=== PATIENT | female | born 1955 | race Caucasian/White ===

== ENCOUNTER 2019-12-29 09:26 | Outpatient (REF) | payer MEDICAID, SELFPAY | END 2019-12-29 09:27 | disposition home or self-care (01) | LOC: HO.LAB 09:26 | PROVIDERS: Visit Provider Internal Medicine | DX: Z20.828 Contact with and (suspected) exposure to other viral communicable diseases (principal) | CPT/HCPCS: 87635 ==

== ENCOUNTER 2020-06-03 12:49 | Emergency (ER) | payer MEDICAID, SELFPAY ==
--- NOTE | ~2020-06-03 | XR_ITS ---
EXAMINATION: XR CHEST CLINICAL INFORMATION: Left hand numbness. COMPARISON: Chest 10/05/2018 TECHNIQUE: 2 views of the chest were obtained. FINDINGS: No significant abnormality is noted involving the heart, lungs, mediastinum, bony thorax or soft tissues. XR/XR chest 2V IMPRESSION: Unremarkable chest exam.
[2020-06-03 14:18] VITALS: BP 137/84; PULSE 64; RESP 19; TEMP 36.6; O2SAT 100; BMI 29.2
[2020-06-03 14:24] VITALS: PULSE 64
--- NOTE | 2020-06-03 14:35 | ECG_ITS ---
Test Reason : CP Blood Pressure : / mmHG Vent. Rate : 068 BPM Atrial Rate : 068 BPM P-R Int : 136 ms QRS Dur : 070 ms QT Int : 398 ms P-R-T Axes : 042 037 039 degrees QTc Int : 423 ms Normal sinus rhythm Normal ECG When compared to the previous EKG of No significant changes seen Referred By: Litzy Portillo Electronically Signed By:Mati Vigil
[2020-06-03 15:02] LABS: MANUAL DIFF FLAG NO
[2020-06-03 15:03] LABS: Basophils Percent Auto 0.3 % (0-2); Eosinophils Absolute Auto 0.2 X10*3/uL (0.0-0.4); Eosinophils Percent Auto 3.1 % (0-4); Hematocrit 42.1 % (37-47); Hemoglobin 13.5 g/dl (12.0-16.0); Imm Gran Abs Auto 0.02 X10*3/uL (0.00-0.03); Imm Gran Pct Auto 0.3 % (0.0-0.4); Lymphocytes Absolute Auto 1.4 X10*3/uL (1.2-4.9); Mean Corpuscular HGB Conc 32.1 g/dl (31.0-35.0); Mean Corpuscular Hemoglobin 31.8 pg (27.0-33.0); Mean Corpuscular Volume 99.1 fL (80-98); Monocytes Absolute Auto 0.5 X10*3/uL (0.1-1.2); Monocytes Percent Auto 8.2 % (2-11); Neutrophils Absolute Auto 3.7 X10*3/uL (2.0-8.3); Neutrophils Percent Auto 64.1 % (45-73); Platelet Count 263 X10*3/uL (160-400); Red Blood Count 4.25 X10*6/uL (4.20-5.50); Red Cell Distribution Width 11.5 % (11.0-16.0); White Blood Count 5.8 X10*3/uL (4.8-10.8)
[2020-06-03 15:09] LABS: INTERNATIONAL NORM RATIO 0.9 (0.9-1.1); Prothrombin Time 10.3 SEC (10.8-13.0)
[2020-06-03 15:12] LABS: Partial Thromboplastin Time 34.9 SEC (24.1-38.0)
--- NOTE | 2020-06-03 15:29 | ED.CHESTPAIN ---
HPI - Chest Pain General Chief Complaint: Chest Pain Stated Complaint: chest pain Time Seen by Provider: 06/03/20 14:34 Source: patient Mode of arrival: ambulatory Limitations: language barrier (Moroccan-speaking) History of Present Illness HPI narrative: 65-year-old female who is Moroccan-speaking with a past medical history of migraine headaches, hyperlipidemia and diabetes type 2 presenting to the ED with complaints of chest pain for the past 3 days with associated left hand numbness. She denies anything making the chest pain better or worse. Reports she has also been having her migraine headaches at the frontal aspect of her head which is similar when compared to prior headaches. Denies any fevers, dizziness, lightheadedness, changes in vision, nausea/vomiting, shortness of breath, dyspnea on exertion, orthopnea, palpitations, abdominal pain, back pain, lower extremity swelling or calf tenderness or any other symptoms complaints or concerns at this time. MD complaint: chest pain Onset (ago): day(s) (Three days) Timing of current episode: constant and still present Prior episodes: Yes Onset: other (Patient cannot recall) Pain location: left chest Pain radiation: left shoulder Severity: moderate Quality: other (Throbbing sensation) Relieving factors: nothing Exacerbating factors: nothing Associated symptoms: other (Left hand numbness) Treatment prior to arrival: none Risk Factors Coronary artery disease risk factors: diabetes and hyperlipidemia Thoracic aortic dissection risk factors: none Related Data On Oral Contraceptives: No Previous Rx's Medication Instructions Recorded cyclobenzaprine 10 mg PO Q8H #10 tab 06/03/20 naproxen 500 mg PO BID PRN #10 tab 06/03/20 Allergies Allergy/AdvReac Type Severity Reaction Status Date / Time No Known Allergies Allergy Unverified 12/09/19 18:27 [No Known Allergies*] Review of Systems Review of Systems: Constitutional : No Weight loss, No Fever, No Chills, No Night Sweats, No Fatigue, No Malaise ENT/Mouth : No Hearing loss, No Ear Pain, No Nasal Congestion, No Sinus Pain, No Hoarseness, No sore throat, No Rhinorrhea, No Swallowing Difficulty Eyes: No Eye Pain, No Swelling, No Redness, No Foreign Body, No Discharge, No Vision Changes Cardiovascular : + Chest pain, No SOB, no Dyspnea on Exertion, No Orthopnea, No Edema, No extremity swelling, No Palpitations Respiratory : No Cough, No Sputum, No Wheezing, No Dyspnea Gastrointestinal : No Nausea, No Vomiting, No Diarrhea, No abdominal Pain, No Hematochezia, No Melena Genitourinary : No irregular bleeding, No Dysuria, No Urinary Frequency, No Hematuria, No Urinary Incontinence, No Urgency, No Flank Pain, No Urinary Flow Changes, No Hesitancy Musculoskeletal : + left shoulder joint pain, No Myalgias, No Joint Swelling Skin : No Skin Lesions, No rash Neuro : + Numbness to left hand, +migraine headaches, No Weakness, No Loss of Consciousness, No Dizziness, No Headache Psych : No Anxiety/Panic, No Depression, No SI/HI/AH/VH Heme/Lymph: No Bruising, No Bleeding,No Lymphadenopathy Endocrine : No Polyuria, No Polydipsia, No Temperature Intolerance Yes all other systems are reviewed and are negative [facility] Past Medical History Attestation statement: The following information was validated with the patient. Medical History Diabetes type 2, controlled High cholesterol Surgical History H/O section H/O: hysterectomy Social History Social History Advance Directives: No Advance Directives Information Provided: Yes Physical Exam Vital Signs: Vital Signs: Last Vital Signs Temp 98 F 06/03/20 14:18 Pulse 64 06/03/20 14:18 Resp 19 06/03/20 14:18 BP 137/84 06/03/20 14:18 Pulse Ox 100 06/03/20 14:18 Body Mass Index 29.2 Vital signs have been reviewed as normal and appeared to be correct. Blood pressure normal. Heart rate normal. Respiration rate normal. Temperature normal. Oxygen saturation normal. Appearance: Alert. Oriented X3. No acute distress. Head: Normal external exam. Normocephalic. Atraumatic. Able to rotate head bilaterally. Eyes: PERRLA. EOMI. No nystagmus noted. Conjunctiva and sclera normal. Eyelids normal. Corneal reflex normal. ENT: EAC normal. TM's Normal. Hearing normal. Pharynx normal. Uvula midline. tongue midline. Moist mucous membranes. No trismus noted. No drooling noted. No muffled voice noted. No nystagmus noted. Neck: Normal inspection. Neck supple. FROM. No adenopathy. Trachea midline. Thyroid Normal. No meningeal signs. No neck mass noted. CVS: Normal heart rate and rhythm. Heart sound normal. No murmurs noted. Pulses normal throughout. Respiratory: No respiratory distress. Painless inspiration. Breath sounds normal. No wheezes/rales/rhonchi noted. Chest nontender. No accessory muscle usage noted or decreased air movement noted. Abdomen: Soft and nontender. Bowel sounds normal in all 4 quadrants. No distention noted. No organomegaly noted. No visible injury noted. Back: No CVA tenderness. Full range of motion noted. Skin: Skin warm and dry. Normal skin color. Normal skin turgor. No rashes/lesions/lacerations noted. Extremities: No lower extremity edema. Extremities exhibit normal range of motion. Extremities nontender. Able to shrug shoulders bilaterally and keep up against resistance. Neuro: Oriented X 3. No motor deficit. No sensory deficit. Reflexes normal. Moving all extremities. No focal motor deficits. Cranial nerves II-XI intact bilaterally. Facial strength normal. Normal cognition. Speech normal. Gait normal. Strength 5/5 throughout. No pronator drift. No tremor noted. No fasciculations noted. No rigidity noted. Muscle tone normal throughout. Course Course Course Narrative: 14:35pm - 65-year-old female who is Moroccan-speaking with a past medical history of migraine headaches, hyperlipidemia and diabetes type 2 presenting to the ED with complaints of chest pain for the past 3 days with associated left hand numbness. - on exam patient is alert oriented x3. Not in any acute distress. Vital signs are stable within normal limits. Lungs clear to auscultation. CV RRR. No reproducible chest tenderness. No rashes/lesion/induration/fluctuance or signs of infection on the chest wall. Abdomen is soft and nontender. No exam is within normal limits no focal neuro deficits noted. - concern for ACS vs PNA vs costal chondritis/muscular strain - Plan: Labs, CXR, EKG then re-evaluate. Reevaluation(s) Reevaluation #1: - all labs within normal limits including D-dimer and troponin. Patient with atypical chest pain. Does not need serial troponins as pain has been consistent for the past 3 days. Will DC home with instructions return if any new or worsening symptoms to follow up with primary care provider. Patient understands agrees with this plan. Time: 17:19 MDM - Chest Pain Medical Records Data Attestation: I reviewed the patient's medical records. Lab Data Attestation: I reviewed the patient's lab results. Result diagrams: 06/03/20 14:45 06/03/20 14:43 Labs: Lab Results 06/03/20 06/03/20 06/03/20 Range/Units 14:43 14:43 14:43 WBC (4.8-10.8) X10*3/uL RBC (4.20-5.50) X10*6/uL Hgb (12.0-16.0) g/dl Hct (37-47) % MCV (80-98) fL MCH (27.0-33.0) pg MCHC (31.0-35.0) g/dl RDW (11.0-16.0) % Plt Count (160-400) X10*3/uL MPV (9.4-12.3) fL Immature Gran % (Auto) (0.0-0.4) % Neut % (Auto) (45-73) % Lymph % (Auto) (20-40) % [place] % (Auto) (2-11) % Eos % (Auto) (0-4) % Baso % (Auto) (0-2) % Lymph # (Auto) (1.2-4.9) X10*3/uL [place] # (Auto) (0.1-1.2) X10*3/uL Eos # (Auto) (0.0-0.4) X10*3/uL Baso # (Auto) (0.0-0.2) X10*3/uL Abs Immat Gran (auto) (0.00-0.03) X10*3/uL Absolute Neuts (auto) (2.0-8.3) X10*3/uL Absolute Nucleated RBC (0.0-0.012) X10*3/uL Nucleated RBC % (auto) (0.0-0.2) /100WBC PT 10.3 L (10.8-13.0) SEC INR 0.9 (0.9-1.1) APTT 34.9 (24.1-38.0) SEC D-Dimer < 200 NG/ML Sodium (135-145) mmol/L Potassium (3.3-5.1) mmol/L Chloride (96-108) mmol/L Carbon Dioxide (22-29) mmol/L Anion Gap (12-20) BUN (9-16) mg/dL Creatinine (0.5-1.4) mg/dL Estim Creat Clear Calc Estimated GFR Random Glucose (60-115) mg/dL Calcium (8.4-10.2) mg/dL Magnesium (1.6-2.6) mg/dL Total Bilirubin (0.0-1.0) mg/dL Direct Bilirubin (0.0-0.5) mg/dL AST (5-31) U/L ALT (0-31) U/L Alkaline Phosphatase (39-117) U/L Total Creatine Kinase (26-140) U/L Troponin I High Sens < 3.5 (<3.5-17.0) ng/L B-Natriuretic Peptide 79 (<100) pg/mL Total Protein (6.5-8.0) g/dL Albumin (3.5-5.0) g/dL Lipase (8-78) U/L Coronavirus (PCR) NEGATIVE (Negative) Influenza Type A (PCR) NEGATIVE (Negative) Influenza Type B (PCR) NEGATIVE (Negative) RSV RNA Qual (PCR) NEGATIVE (Negative) 06/03/20 06/03/20 Range/Units 14:43 14:45 WBC 5.8 (4.8-10.8) X10*3/uL RBC 4.25 (4.20-5.50) X10*6/uL Hgb 13.5 (12.0-16.0) g/dl Hct 42.1 (37-47) % MCV 99.1 H (80-98) fL MCH 31.8 (27.0-33.0) pg MCHC 32.1 (31.0-35.0) g/dl RDW 11.5 (11.0-16.0) % Plt Count 263 (160-400) X10*3/uL MPV 10.0 (9.4-12.3) fL Immature Gran % (Auto) 0.3 (0.0-0.4) % Neut % (Auto) 64.1 (45-73) % Lymph % (Auto) 24.0 (20-40) % [place] % (Auto) 8.2 (2-11) % Eos % (Auto) 3.1 (0-4) % Baso % (Auto) 0.3 (0-2) % Lymph # (Auto) 1.4 (1.2-4.9) X10*3/uL [place] # (Auto) 0.5 (0.1-1.2) X10*3/uL Eos # (Auto) 0.2 (0.0-0.4) X10*3/uL Baso # (Auto) 0.0 (0.0-0.2) X10*3/uL Abs Immat Gran (auto) 0.02 (0.00-0.03) X10*3/uL Absolute Neuts (auto) 3.7 (2.0-8.3) X10*3/uL Absolute Nucleated RBC 0.000 (0.0-0.012) X10*3/uL Nucleated RBC % (auto) 0.0 (0.0-0.2) /100WBC PT (10.8-13.0) SEC INR (0.9-1.1) APTT (24.1-38.0) SEC D-Dimer NG/ML Sodium 141 (135-145) mmol/L Potassium 5.0 (3.3-5.1) mmol/L Chloride 106 (96-108) mmol/L Carbon Dioxide 28 (22-29) mmol/L Anion Gap 12 (12-20) BUN 18 H (9-16) mg/dL Creatinine 0.83 (0.5-1.4) mg/dL Estim Creat Clear Calc 54.9 Estimated GFR > 60 Random Glucose 86 (60-115) mg/dL Calcium 9.0 (8.4-10.2) mg/dL Magnesium 2.3 (1.6-2.6) mg/dL Total Bilirubin 0.5 (0.0-1.0) mg/dL Direct Bilirubin < 0.2 (0.0-0.5) mg/dL AST 22 (5-31) U/L ALT 12 (0-31) U/L Alkaline Phosphatase 94 (39-117) U/L Total Creatine Kinase 158 H (26-140) U/L Troponin I High Sens (<3.5-17.0) ng/L B-Natriuretic Peptide (<100) pg/mL Total Protein 6.7 (6.5-8.0) g/dL Albumin 4.0 (3.5-5.0) g/dL Lipase 42 (8-78) U/L Coronavirus (PCR) (Negative) Influenza Type A (PCR) (Negative) Influenza Type B (PCR) (Negative) RSV RNA Qual (PCR) (Negative) Imaging Data Chest x-ray: Attestation: I personally reviewed and interpreted this imaging study as follows: Radiologist's impression: FINDINGS: No significant abnormality is noted involving the heart, lungs, mediastinum, bony thorax or soft tissues. XR/XR chest 2V IMPRESSION: Unremarkable chest exam. ECG Data ECG #1: Attestation: I personally reviewed and interpreted this ECG as follows: ECG interpretation date: 06/03/20 ECG interpretation time: 13:19 Interpretation: Normal sinus rhythm and tachy rate of 60 with normal SD interval normal QRS duration normal QT/QTC interval. No acute ischemic changes noted. Discharge Plan Discharge Clinical Impression: Atypical chest pain Patient Disposition: Home, Self-Care Instructions: Chest Pain (ED) Prescriptions: New cyclobenzaprine 10 mg tablet 10 mg PO Q8H Qty: 10 RF: 0 naproxen 500 mg tablet 500 mg PO BID PRN (Reason: pain) Qty: 10 RF: 0 Referrals: Diamond Ponce MD [Primary Care Provider] - 2 days Print Language: Moroccan
[2020-06-03 15:35] LABS: B Type Natriuretic Peptide 79 pg/mL (<100); Troponin-I High Sensitivity < 3.5 ng/L (<3.5-17.0)
[2020-06-03 16:24] LABS: D Dimer < 200 NG/ML
[2020-06-03 16:26] LABS: Alanine Aminotransferase 12 U/L (0-31); Alkaline Phosphatase 94 U/L (39-117); Anion Gap 12 (12-20); Aspartate Amino Transferase 22 U/L (5-31); Bilirubin Direct < 0.2 mg/dL (0.0-0.5); Bilirubin Total 0.5 mg/dL (0.0-1.0); Blood Urea Nitrogen 18 mg/dL (9-16); Carbon Dioxide 28 mmol/L (22-29); Chloride 106 mmol/L (96-108); Creatinine Clr Calc Pharmacy 54.9; Estimated Glomerular Filt Rate > 60; Glucose Random 86 mg/dL (60-115); Lipase 42 U/L (8-78); Magnesium 2.3 mg/dL (1.6-2.6); Sodium 141 mmol/L (135-145); Total Protein 6.7 g/dL (6.5-8.0)
[2020-06-03 16:43] LABS: Influenza A PCR NEGATIVE (Negative); Influenza B PCR NEGATIVE (Negative); Resp Syncy Virus RNA Qual PCR NEGATIVE (Negative); SARS COV2 PCR INHOUSE NEGATIVE (Negative)
== END 2020-06-03 18:04 | disposition home or self-care (01) ==
PROVIDERS: Physician Assistant Medical; Emergency Provider Emergency Medicine; PCP Internal Medicine
DX: R07.89 Other chest pain (principal); M25.512 Pain in left shoulder; Z20.822 Contact with and (suspected) exposure to COVID-19; Z79.899 Other long term (current) drug therapy
CPT/HCPCS: 0241U; 36415; 71046; 80048; 80076; 82550; 83690; 83735; 83880; 84484; 85025; 85379; 85610; 85730; 93005; 99284

== ENCOUNTER 2020-06-12 13:11 | Outpatient (REF) | payer MEDICAID, SELFPAY ==
--- NOTE | ~2020-06-12 | MM_ITS ---
EXAMINATION: MM SCREENING DIGITAL BREAST TOMOSYNTHESIS, BILATERAL CLINICAL INFORMATION: Screening. Asymptomatic. The lifetime risk of breast cancer based on the Tyrer-Cuzick Model is 3%. COMPARISON: Mammography: 12/15/2018, 12/11/2017, 06/09/2017, 11/18/2016, 11/07/2016 TECHNIQUE: Digital breast tomosynthesis is performed in both the craniocaudal and mediolateral oblique views along with computer-aided detection (CAD). Synthesized 2D images are generated from the tomosynthesis. FINDINGS: There are scattered areas of fibroglandular density (ACR BI-RADS breast composition Category b). Parenchymal pattern is similar to prior exams. Small smooth nodule mid 9:00 left breast is stable prior studies. Neither breast shows developing density or interval mass or architectural abnormality or abnormal calcifications. The skin contours are smooth. MM/MM tomosynthesis screening BI IMPRESSION: No mammographic evidence of malignancy. ASSESSMENT: BI-RADS 2: Benign RECOMMENDATION: Routine annual mammography screening. This patient's information was entered into a reminder system with a target due date for their next mammogram.
== END 2020-06-12 13:12 | disposition home or self-care (01) ==
LOC: HO.MAMMO 13:11
PROVIDERS: PCP Internal Medicine; Visit Provider Internal Medicine
DX: Z12.31 Encounter for screening mammogram for malignant neoplasm of breast (principal)
CPT/HCPCS: 77063; 77067

== ENCOUNTER → 2020-07-13 13:33 | Outpatient (REF) | payer MEDICAID, SELFPAY ==
--- NOTE | 2020-07-13 13:43 | ECG_ITS ---
Test Reason : CP Blood Pressure : / mmHG Vent. Rate : 081 BPM Atrial Rate : 081 BPM P-R Int : 140 ms QRS Dur : 078 ms QT Int : 380 ms P-R-T Axes : 038 045 031 degrees QTc Int : 441 ms Normal sinus rhythm Normal ECG When compared to the previous EKG of No significant changes seen Referred By: Poonam Cao Electronically Signed By:Mati Vigil
== END ==
LOC: HO.CARD 13:33
PROVIDERS: PCP Internal Medicine; Visit Provider Family Medicine
DX: R07.89 Other chest pain (principal)
CPT/HCPCS: 93005

== ENCOUNTER 2020-07-31 13:27 | Outpatient (REF) | payer MEDICAID, SELFPAY ==
--- NOTE | ~2020-07-31 | XR_ITS ---
EXAMINATION: XR SHOULDER, LEFT CLINICAL INFORMATION: Pain left shoulder. COMPARISON: None TECHNIQUE: AP external rotation, Grashey, scapular Y, and axillary views of the left shoulder. FINDINGS: The bones and soft tissues are normal. No fracture. Minimal loss of glenohumeral joint space. The acromioclavicular alignment is anatomic with normal joint space. No abnormal soft tissue calcifications. XR/XR shoulder LT min 2V IMPRESSION: Minimal loss of glenohumeral joint space. Otherwise unremarkable left shoulder exam.
== END 2020-07-31 13:28 | disposition home or self-care (01) ==
LOC: HO.XRAY 13:27
PROVIDERS: PCP Internal Medicine; Visit Provider Emergency Medicine
DX: M25.512 Pain in left shoulder (principal)
CPT/HCPCS: 73030

== ENCOUNTER 2020-10-01 07:02 | Emergency (ER) | payer MEDICAID, SELFPAY ==
--- NOTE | ~2020-10-01 | XR_ITS ---
EXAMINATION: XR CHEST CLINICAL INFORMATION: Chest pain COMPARISON: X-ray 06/03/2020 TECHNIQUE: Frontal view of the chest was obtained. FINDINGS: Rotated positioning. Cardiomediastinal silhouette is stable allowing for difference in technique. Mild central vascular prominence. No overt pulmonary edema. No consolidation, effusion or pneumothorax. XR/XR chest 1V IMPRESSION: Mild central vascular prominence without overt pulmonary edema.
[2020-10-01 07:06] VITALS: BP 140/77; PULSE 75; RESP 18; TEMP 36.6; O2SAT 96; BMI 30.9
--- NOTE | 2020-10-01 07:07 | ECG_ITS ---
Test Reason : CP Blood Pressure : / mmHG Vent. Rate : 061 BPM Atrial Rate : 061 BPM P-R Int : 148 ms QRS Dur : 080 ms QT Int : 422 ms P-R-T Axes : 034 024 023 degrees QTc Int : 424 ms Normal sinus rhythm Nonspecific T wave abnormality Abnormal ECG No significant changes when compared with the previous EKG of 13 jul 2020 Referred By: Dedra Dawson Electronically Signed By:RELL RAE
[2020-10-01 07:19] LABS: MANUAL DIFF FLAG NO
[2020-10-01 07:28] LABS: Basophils Percent Auto 0.5 % (0-2); Eosinophils Absolute Auto 0.4 X10*3/uL (0.0-0.4); Eosinophils Percent Auto 7.5 % (0-4); Hematocrit 40.5 % (37-47); Hemoglobin 13.1 g/dl (12.0-16.0); Imm Gran Abs Auto 0.01 X10*3/uL (0.00-0.03); Imm Gran Pct Auto 0.2 % (0.0-0.4); Lymphocytes Absolute Auto 1.3 X10*3/uL (1.2-4.9); Mean Corpuscular HGB Conc 32.3 g/dl (31.0-35.0); Mean Corpuscular Hemoglobin 31.2 pg (27.0-33.0); Mean Corpuscular Volume 96.4 fL (80-98); Mean Platelet Volume 9.9 fL (9.4-12.3); Monocytes Absolute Auto 0.5 X10*3/uL (0.1-1.2); Monocytes Percent Auto 9.5 % (2-11); Neutrophils Absolute Auto 3.2 X10*3/uL (2.0-8.3); Neutrophils Percent Auto 58.3 % (45-73); Platelet Count 256 X10*3/uL (160-400); Red Cell Distribution Width 11.8 % (11.0-16.0); White Blood Count 5.5 X10*3/uL (4.8-10.8)
--- NOTE | 2020-10-01 07:29 | ED_ITS ---
HPI - Chest Pain General Chief Complaint: Chest Pain Stated Complaint: CHEST PAIN SINCE 5AM Time Seen by Provider: 10/01/20 07:07 Source: patient, EMS and special education assistant Mode of arrival: EMS Limitations: no limitations History of Present Illness HPI narrative: 65-year-old female speaking only came in by ambulance evaluation for chest pain. Chest pain started at 04:00 with the patient from sleep patient describes the pain as mid sternal chest pain, pain was described as muscle spasm, pain is intermittent comes and goes, moderate 5/10, also complained of bilateral shoulders pain, pain is associated with headache, no relieving or aggravating factors. Patient had similar pain in the past and was told some muscle spasm. Patient declined any shortness of breath. Patient was given sublingual nitro by EMS stated that her headache is worsening after that, patient reportedly has a partial relief of her chest pain. Related Data Previous Rx's Medication Instructions Recorded cyclobenzaprine 10 mg PO Q8H #10 tab 06/03/20 naproxen 500 mg PO BID PRN #10 tab 06/03/20 Allergies Allergy/AdvReac Type Severity Reaction Status Date / Time No Known Allergies Allergy Unverified 12/09/19 18:27 [No Known Allergies*] Review of Systems Review of Systems: All other systems are reviewed and are negative Constitutional: Reports as per HPI and Reports no additional constitutional complaints Eyes: Reports as per HPI and Reports no additional eye complaints Reports system reviewed and no additional complaints, except as documented Cardiovascular: Reports as per HPI and Reports no additional cardiovascular complaints Respiratory: Reports as per HPI and Reports no additional respiratory complaints Gastrointestinal: Reports as per HPI and Reports no additional gastrointestinal complaints Genitourinary: Reports no additional female genitourinary complaints Musculoskeletal: Reports no additional musculoskeletal complaints Skin/Breast: Reports system reviewed and no additional complaints, except as docu Psychiatric: Reports no additional psychiatric complaints Endocrine: Reports no additional endocrine complaints Hematologic/Lymphatic: Reports no additional hematologic/lymphatic complaints Allergic/Immunologic: Reports no additional allergic/immunologic complaints Reports system reviewed and no additional complaints, except as documented and Reports Abnormal speech present [facility] Past Medical History Medical History Diabetes type 2, controlled High cholesterol Surgical History H/O section H/O: hysterectomy Social History Social History Alcohol intake: never Smoked in Last 30 Days: No Use of substances other than those prescribed or required for medical reasons: No Advance Directives: No Advance Directives Information Provided: No Physical Exam Vital Signs: Vital Signs: Last Vital Signs Temp 97.8 F 10/01/20 07:06 Pulse 75 10/01/20 07:06 Resp 18 10/01/20 07:06 BP 140/77 H 10/01/20 07:06 Pulse Ox 96 10/01/20 07:06 Body Mass Index 30.9 Vital signs have been reviewed as appeared to be correct. Blood pressure normal. Heart rate normal. Respiration rate normal. Temperature normal. Oxygen saturation normal. Appearance: Alert. Oriented X3. No acute distress. Appear very anxious. Head: Normal external exam. Normocephalic. Atraumatic. No Carlson signs noted. No raccoon eyes noted Eyes: PERRLA. EOMI. Conjunctiva and sclera normal. Eyelids normal. ENT: TM's Normal. Pharynx normal. Uvula midline. Moist mucous membranes. No trismus noted. No drooling noted. No muffled voice noted. Neck: Normal inspection. Neck supple. FROM. No adenopathy. Thyroid Normal. No meningeal signs. No neck mass noted. CVS: Normal heart rate and rhythm. Heart sound normal. No murmurs noted. Pulses normal throughout. Respiratory: No respiratory distress. Painless inspiration. Breath sounds normal. No wheezes/rales/rhonchi noted. Chest nontender. No accessory muscle usage noted or decreased air movement noted. Abdomen: Soft and nontender. Bowel sounds normal in all 4 quadrants. No d istention noted. No organomegaly noted. No visible injury noted. Back: No CVA tenderness. Full range of motion noted. Skin: Skin warm and dry. Normal skin color. Normal skin turgor. No rashes/l esions/lacerations noted. Extremities: No lower extremity edema. Extremities exhibit normal range of motion. Extremities nontender. Neuro: Oriented X 3. No motor deficit. No sensory deficit. Reflexes normal. Course Course Course Narrative: Assessment and plan. 65-year-old female came in with chest pain and headache, patient had similar episodes in the past and was secondary to muscle spasm, patient had unremarkable EKG, troponin x2 is unremarkable, otherwise normal labs, chest x-ray is not concerning for acute pathology. Patient feels better with no headache or chest pain. Will reassure and discharge home. MDM - Chest Pain Lab Data Attestation: I reviewed the patient's lab results. Result diagrams: 10/01/20 07:14 10/01/20 07:14 Labs: Lab Results 10/01/20 10/01/20 10/01/20 Range/Units 07:14 07:14 07:14 WBC 5.5 (4.8-10.8) X10*3/uL RBC 4.20 (4.20-5.50) X10*6/uL Hgb 13.1 (12.0-16.0) g/dl Hct 40.5 (37-47) % MCV 96.4 (80-98) fL MCH 31.2 (27.0-33.0) pg MCHC 32.3 (31.0-35.0) g/dl RDW 11.8 (11.0-16.0) % Plt Count 256 (160-400) X10*3/uL MPV 9.9 (9.4-12.3) fL Immature Gran % (Auto) 0.2 (0.0-0.4) % Neut % (Auto) 58.3 (45-73) % Lymph % (Auto) 24.0 (20-40) % [place] % (Auto) 9.5 (2-11) % Eos % (Auto) 7.5 H (0-4) % Baso % (Auto) 0.5 (0-2) % Lymph # (Auto) 1.3 (1.2-4.9) X10*3/uL [place] # (Auto) 0.5 (0.1-1.2) X10*3/uL Eos # (Auto) 0.4 (0.0-0.4) X10*3/uL Baso # (Auto) 0.0 (0.0-0.2) X10*3/uL Abs Immat Gran (auto) 0.01 (0.00-0.03) X10*3/uL Absolute Neuts (auto) 3.2 (2.0-8.3) X10*3/uL Absolute Nucleated RBC 0.000 (0.0-0.012) X10*3/uL Nucleated RBC % (auto) 0.0 (0.0-0.2) /100WBC Sodium 143 (135-145) mmol/L Potassium 4.1 (3.3-5.1) mmol/L Chloride 108 (96-108) mmol/L Carbon Dioxide 26 (22-29) mmol/L Anion Gap 13 (12-20) BUN 14 (9-16) mg/dL Creatinine 0.80 (0.5-1.4) mg/dL Estim Creat Clear Calc 58.7 Estimated GFR > 60 Random Glucose 113 (60-115) mg/dL Calcium 9.0 (8.4-10.2) mg/dL Total Bilirubin 0.7 (0.0-1.0) mg/dL Direct Bilirubin 0.2 (0.0-0.5) mg/dL AST 19 (5-31) U/L ALT 9 (0-31) U/L Alkaline Phosphatase 88 (39-117) U/L Troponin I High Sens < 3.5 (<3.5-17.0) ng/L B-Natriuretic Peptide 53 (<100) pg/mL Total Protein 6.3 L (6.5-8.0) g/dL Albumin 3.8 (3.5-5.0) g/dL Lipase 30 (8-78) U/L Imaging Data Chest x-ray: Radiologist's impression: Mild central vascular prominence without overt pulmonary edema. ECG Data ECG #1: Interpretation: Normal sinus rhythm at 61 beats per minutes, normal intervals, normal axis deviation, T-wave inversion in lead III and V3. Discharge Plan Discharge Clinical Impression: Chest pain, Myofascial muscle pain Patient Disposition: Home, Self-Care Instructions: Chest Wall Pain (ED) Prescriptions: No Action cyclobenzaprine 10 mg tablet 10 mg PO Q8H Qty: 10 RF: 0 naproxen 500 mg tablet 500 mg PO BID PRN (Reason: pain) Qty: 10 RF: 0 Referrals: Diamond Ponce MD [Primary Care Provider] - 2 days
[2020-10-01] MEDS: LORazepam 1 MG TABLET PO (07:41)
[2020-10-01] MEDS: Acetaminophen 325 MG TABLET PO (07:41)
[2020-10-01 07:48] LABS: Alanine Aminotransferase 9 U/L (0-31); Albumin Level 3.8 g/dL (3.5-5.0); Alkaline Phosphatase 88 U/L (39-117); Anion Gap 13 (12-20); Aspartate Amino Transferase 19 U/L (5-31); Bilirubin Direct 0.2 mg/dL (0.0-0.5); Bilirubin Total 0.7 mg/dL (0.0-1.0); Blood Urea Nitrogen 14 mg/dL (9-16); Carbon Dioxide 26 mmol/L (22-29); Chloride 108 mmol/L (96-108); Creatinine Clr Calc Pharmacy 58.7; Estimated Glomerular Filt Rate > 60; Glucose Random 113 mg/dL (60-115); Lipase 30 U/L (8-78); Potassium 4.1 mmol/L (3.3-5.1); Sodium 143 mmol/L (135-145); Total Protein 6.3 g/dL (6.5-8.0)
[2020-10-01 07:52] LABS: B Type Natriuretic Peptide 53 pg/mL (<100); Troponin-I High Sensitivity < 3.5 ng/L (<3.5-17.0)
[2020-10-01 10:54] LABS: Troponin-I High Sensitivity < 3.5 ng/L (<3.5-17.0)
[2020-10-01 11:21] VITALS: BP 145/86; PULSE 64; RESP 14; O2SAT 98
== END 2020-10-01 11:31 | disposition home or self-care (01) ==
PROVIDERS: Emergency Provider Emergency Medicine; PCP Internal Medicine
DX: R07.9 Chest pain, unspecified (principal); M79.18 Myalgia, other site
CPT/HCPCS: 36415; 71045; 80048; 80076; 83690; 83880; 84484; 85025; 93005; 99285

== ENCOUNTER 2020-10-06 07:29 | Outpatient (REF) | payer MEDICAID, SELFPAY | END 2020-10-06 07:30 | disposition home or self-care (01) | LOC: HO.HOSX 07:29 | PROVIDERS: Visit Provider Physician Assistant | DX: M19.012 Primary osteoarthritis, left shoulder (principal) | CPT/HCPCS: 20610; 99202; J1040 ==

== ENCOUNTER 2021-03-12 19:41 | Emergency (ER) | payer MEDICAID, SELFPAY ==
--- NOTE | ~2021-03-12 | XR_ITS ---
EXAMINATION: XR SHOULDER, RIGHT CLINICAL INFORMATION: Pain COMPARISON: None TECHNIQUE: Three views of the right shoulder. FINDINGS: There is no fracture or dislocation. The glenohumeral joint is well aligned. Mild narrowing of the joint space with small osteophytes. Mild degenerative change of the right acromioclavicular joint. The visualized lung is clear. The visualized ribs are intact. XR/XR shoulder RT min 2V IMPRESSION: Mild degenerative changes of the right shoulder.
[2021-03-12 20:46] VITALS: BP 142/73; PULSE 74; RESP 18; TEMP 36.9; O2SAT 98; BMI 30.1
--- NOTE | 2021-03-13 01:36 | ED.GENADULT ---
HPI - General Adult General Chief complaint: General Medical Stated complaint: abd pain (anguillan speaking only) Time Seen by Provider: 03/13/21 01:15 Source: patient and family Mode of arrival: ambulatory Limitations: no limitations and language barrier History of Present Illness HPI narrative: Patient history of chronic arthritis complaining of pain in the right shoulder area for last few weeks getting worse now also patient has some chest pain which is going on for last few weeks with multiple complaints also complaining of dizziness with history of hyperkalemia in the past patient drinks vinegar to clean herself Related Data Previous Rx's Medication Instructions Recorded cyclobenzaprine 10 mg tablet 10 mg PO Q8H #10 tab 06/03/20 naproxen 500 mg tablet 500 mg PO BID PRN #10 tab 06/03/20 tramadol 50 mg tablet 50 mg PO Q6H PRN #20 tab 03/13/21 Allergies Allergy/AdvReac Type Severity Reaction Status Date / Time No Known Allergies Allergy Unverified 12/09/19 18:27 [No Known Allergies*] Review of Systems Review of Systems: Yes all other systems are reviewed and are negative PMFSH Past Medical History Medical History Diabetes type 2, controlled High cholesterol Surgical History H/O section H/O: hysterectomy Social History Social History Alcohol intake: never Advance Directives: No Advance Directives Information Provided: No Physical Exam Vital Signs: Vital Signs: Last Vital Signs Temp 98.6 F 03/13/21 02:59 Pulse 76 03/13/21 02:59 Resp 18 03/13/21 02:59 BP 138/76 03/13/21 02:59 Pulse Ox 99 03/13/21 02:59 BMI result Body Mass Index 30.1 Const: General: comfortable and no acute distress Orientation/consciousness: patient oriented x3 HENMT: Head: Yes normal to inspection Eyes: General: appearance normal, both eyes and all related structures Neck: Neck: Yes full ROM, Yes trachea midline, Yes supple, No midline deformity and Yes tender (Paraspinal tenderness no midline tenderness) Chest: Chest palpation & inspection: normal inspection of the chest Resp: Effort & Inspection: normal respiratory effort Auscultation: clear to auscultation bilaterally Cardio: Palpation: normal PMI Rate: regular rate Rhythm: regular rhythm Heart sounds: S1 normal heart sound present and S2 normal heart sound present GI: Inspection: Yes normal to inspection Palpation (GI): Soft to palpation and nontender Auscultation: normal bowel sounds Back/Spine/Pelvis: Thoracic/Lumbar Spine: No thoraco-lumbar spasm, No thoracic spinal tenderness and No lumbar spinal tenderness Skin: General skin exam: no rashes or lesions noted Neuro: General: patient oriented x3, gait normal and no focal motor deficits Extrem: Shoulder/upper arm images: 1. Tenderness at right rotator cuffs unable to abduct right arm above head open can test positive external rotation of right shoulder painful neurovascular intact Medical Decision Making MDM Narrative Medical decision making narrative: Patient multiple complaints with slightly elevated potassium 5.3 without any EKG changes patient takes vinegar at home likely the cause. She has a chronic shoulder problems clinically she has right rotator cuff tendinitis patient advised to follow with PCP and need physical therapy Lab Data Lab results reviewed: Yes I reviewed the patient's lab results. Result diagrams: 03/13/21 02:16 03/13/21 02:16 Labs: Lab Results 03/13/21 03/13/21 03/13/21 Range/Units 02:16 02:16 02:16 WBC 4.9 (4.8-10.8) X10*3/uL RBC 4.44 (4.20-5.50) X10*6/uL Hgb 14.0 (12.0-16.0) g/dl Hct 43.5 (37.0-47.0) % MCV 98.0 (80.0-98.0) fL MCH 31.5 (27.0-33.0) pg MCHC 32.2 (31.0-35.0) g/dl RDW 11.7 (11.0-16.0) % Plt Count 275 (160-400) X10*3/uL MPV 9.5 (9.4-12.3) fL Immature Gran % (Auto) 0.4 (0.0-0.4) % Neut % (Auto) 52.9 (45-73) % Lymph % (Auto) 26.5 (20-40) % [place] % (Auto) 15.5 H (2-11) % Eos % (Auto) 4.3 H (0-4) % Baso % (Auto) 0.4 (0-2) % Lymph # (Auto) 1.3 (1.2-4.9) X10*3/uL [place] # (Auto) 0.8 (0.1-1.2) X10*3/uL Eos # (Auto) 0.2 (0.0-0.4) X10*3/uL Baso # (Auto) 0.0 (0.0-0.2) X10*3/uL Abs Immat Gran (auto) 0.02 (0.00-0.03) X10*3/uL Absolute Neuts (auto) 2.6 (2.0-8.3) x10*3/uL Absolute Nucleated RBC 0.000 (0.0-0.012) X10*3/uL Nucleated RBC % (auto) 0.0 (0.0-0.2) /100WBC Sodium 143 (135-145) mmol/L Potassium 5.3 H D (3.3-5.1) mmol/L Chloride 110 H (96-108) mmol/L Carbon Dioxide 29 (22-29) mmol/L Anion Gap 9 L (12-20) BUN 15 (9-16) mg/dL Creatinine 0.77 (0.5-1.4) mg/dL Estim Creat Clear Calc 59.2 Estimated GFR > 60 Random Glucose 111 (60-115) mg/dL Calcium 8.8 (8.4-10.2) mg/dL Total Bilirubin 0.3 (0.0-1.0) mg/dL AST 26 (5-31) U/L ALT 21 (0-31) U/L Alkaline Phosphatase 96 (39-117) U/L Troponin I High Sens < 3.5 (<3.5-17.0) ng/L Total Protein 7.0 (6.5-8.0) g/dL Albumin 4.2 (3.5-5.0) g/dL Lipase 32 (8-78) U/L ECG Data Attestation: I personally reviewed and interpreted this ECG as follows: Interpretation: Normal sinus rhythm normal interval normal axis heart rate 68 beats per minute no acute ischemia Discharge Plan Discharge Clinical Impression: Tendinitis of right rotator cuff, Acute hyperkalemia Patient Disposition: Home, Self-Care Instructions: Rotator Cuff Tendinitis (ED), Hyperkalemia (ED) Additional Instructions: Avoid high potassium diet Pain medication as advised Follow-up with PCP next week Recheck potassium level next week by your PCP Prescriptions: New tramadol 50 mg tablet 50 mg PO Q6H PRN (Reason: pain) Qty: 20 RF: 0 No Action cyclobenzaprine 10 mg tablet 10 mg PO Q8H Qty: 10 RF: 0 naproxen 500 mg tablet 500 mg PO BID PRN (Reason: pain) Qty: 10 RF: 0 Interventions: ED Discharge Assessment Last Done: 03/13/21 03:58 Discharge Date/Time: 03/13/21 04:09 Print Language: Hungarian
--- NOTE | 2021-03-13 01:57 | ECG_ITS ---
Test Reason : PALPITATIONS Blood Pressure : / mmHG Vent. Rate : 068 BPM Atrial Rate : 068 BPM P-R Int : 148 ms QRS Dur : 078 ms QT Int : 400 ms P-R-T Axes : 044 046 026 degrees QTc Int : 425 ms Normal sinus rhythm Normal ECG When compared with ECG of 01-OCT-2020 07:20, Nonspecific ST and T wave abnormality less prominent Referred By: Kendrick Almaguer Electronically Signed By:RELL RAE
[2021-03-13 02:21] LABS: MANUAL DIFF FLAG NO
[2021-03-13 02:22] LABS: Basophils Percent Auto 0.4 % (0-2); Eosinophils Absolute Auto 0.2 X10*3/uL (0.0-0.4); Eosinophils Percent Auto 4.3 % (0-4); Hematocrit 43.5 % (37.0-47.0); Imm Gran Abs Auto 0.02 X10*3/uL (0.00-0.03); Imm Gran Pct Auto 0.4 % (0.0-0.4); Lymphocytes Absolute Auto 1.3 X10*3/uL (1.2-4.9); Lymphocytes Percent Auto 26.5 % (20-40); Mean Corpuscular HGB Conc 32.2 g/dl (31.0-35.0); Mean Corpuscular Hemoglobin 31.5 pg (27.0-33.0); Mean Platelet Volume 9.5 fL (9.4-12.3); Monocytes Absolute Auto 0.8 X10*3/uL (0.1-1.2); Monocytes Percent Auto 15.5 % (2-11); Neutrophils Absolute Auto 2.6 x10*3/uL (2.0-8.3); Neutrophils Percent Auto 52.9 % (45-73); Platelet Count 275 X10*3/uL (160-400); Red Blood Count 4.44 X10*6/uL (4.20-5.50); Red Cell Distribution Width 11.7 % (11.0-16.0); White Blood Count 4.9 X10*3/uL (4.8-10.8)
[2021-03-13 02:44] LABS: Alanine Aminotransferase 21 U/L (0-31); Albumin Level 4.2 g/dL (3.5-5.0); Alkaline Phosphatase 96 U/L (39-117); Anion Gap 9 (12-20); Aspartate Amino Transferase 26 U/L (5-31); Bilirubin Total 0.3 mg/dL (0.0-1.0); Blood Urea Nitrogen 15 mg/dL (9-16); Calcium 8.8 mg/dL (8.4-10.2); Carbon Dioxide 29 mmol/L (22-29); Chloride 110 mmol/L (96-108); Creatinine Clr Calc Pharmacy 59.2; Estimated Glomerular Filt Rate > 60; Glucose Random 111 mg/dL (60-115); Lipase 32 U/L (8-78); Potassium 5.3 mmol/L (3.3-5.1); Sodium 143 mmol/L (135-145)
[2021-03-13 02:45] LABS: Troponin-I High Sensitivity < 3.5 ng/L (<3.5-17.0)
[2021-03-13 02:59] VITALS: BP 138/76; PULSE 76; RESP 18; TEMP 37; O2SAT 99
--- NOTE | 2021-03-13 03:11 | PC.NURSE ---
Call [facility] for ride home, .
[2021-03-13] MEDS: Sodium Polystyrene Sulfon/Sorb 15 GM/60 ML ORAL.SUSP 30 GM PO (03:33)
== END 2021-03-13 04:09 | disposition home or self-care (01) ==
LOC: HO.ED 03-13 03:45
PROVIDERS: Emergency Provider Internal Medicine
DX: M75.91 Shoulder lesion, unspecified, right shoulder (principal); E87.5 Hyperkalemia; E11.9 Type 2 diabetes mellitus without complications
CPT/HCPCS: 36415; 73030; 80053; 83690; 84484; 85025; 93005; 99284

== ENCOUNTER 2021-03-16 09:59 | Emergency (ER) | payer MEDICAID, SELFPAY ==
[2021-03-16 10:09] VITALS: BP 146/78; PULSE 100; RESP 18; TEMP 36.7; O2SAT 96; BMI 29.9
--- NOTE | 2021-03-16 10:18 | ED_ITS ---
HPI - General Adult General Chief complaint: General Medical Stated complaint: chest pain Time Seen by Provider: 03/16/21 10:17 Source: patient and seismic interpreter Mode of arrival: ambulatory Limitations: no limitations History of Present Illness MD complaint: body aches, R shoulder pain Onset (ago): day(s) (7) Location: neck, right and upper extremity Radiation: other (into head) Severity: moderate Quality: aching and dull Pain Consistency: constant Relieving factors: none Exacerbating factors: movement Associated symptoms: denies other symptoms Treatments prior to arrival: other (has been to clinic and ED - on tramadol and tylenol without relief) Related Data Previous Rx's Medication Instructions Recorded cyclobenzaprine 10 mg tablet 10 mg PO Q8H #10 tab 06/03/20 naproxen 500 mg tablet 500 mg PO BID PRN #10 tab 06/03/20 tramadol 50 mg tablet 50 mg PO Q6H PRN #20 tab 03/13/21 Allergies Allergy/AdvReac Type Severity Reaction Status Date / Time No Known Allergies Allergy Unverified 12/09/19 18:27 [No Known Allergies*] Review of Systems Review of Systems: Constitutional : No Fever, No Chills ENT/Mouth : No Ear Pain, No Hoarseness, No sore throat Eyes: No Eye Pain, No Swelling, No Redness, No Foreign Body Cardiovascular : No Chest Pain, No SOB Respiratory : No Cough, No Dyspnea Gastrointestinal : No Nausea, No Vomiting, No Diarrhea, No abdominal Pain Genitourinary : No Dysuria, No Hematuria Musculoskeletal : positive joint pain, pos Myalgias, No Joint Swelling Skin : No Skin lacerations, No rash Neuro : No Weakness, No Numbness, No Loss of Consciousness, No Dizziness, No Headache Psych : No Anxiety/Panic, No Depression Heme/Lymph: no easy bruising, no Lymphadenopathy Endocrine : No Polyuria, No Polydipsia All other systems reviewed and are negative [facility] Past Medical History Medical History Diabetes type 2, controlled High cholesterol Surgical History H/O section H/O: hysterectomy Social History Social History (Updated 03/16/21 @ 10:53 by Suellen Rehman DO) Alcohol intake: never Patient Tobacco Use Status: Never used Tobacco Advance Directives: No Advance Directives Information Provided: Yes Physical Exam Vital Signs: Vital Signs: Last Vital Signs Temp 98.1 F 03/16/21 10:09 Pulse 100 03/16/21 10:09 Resp 18 03/16/21 10:09 BP 146/78 H 03/16/21 10:09 Pulse Ox 96 03/16/21 10:09 BMI result Body Mass Index 29.9 Appearance: Alert. Oriented X3. No acute distress. Eyes: Pupils equal, round and reactive to light. ENT: Pharynx normal. Neck: R trapezius pain reproduces pain CVS: Normal heart rate and rhythm. Pulses normal. Respiratory: No respiratory distress. Breath sounds normal. Abdomen: Soft and nontender. Skin: Skin warm and dry. Normal skin color. Normal skin turgor. Extremities: No lower extremity edema. R shoulder pain with ROM Neuro: Oriented X 3. No motor deficit. No sensory deficit. Course Course Course Narrative: no hypoxia body aches due to COVID - stable for DC Medical Decision Making MDM Narrative Medical decision making narrative: 66 yo female with hx of migraines, HLD, DM, arthritis c/o several days of R shoulder pain just had xray and seen in ED as well as clinic - started on tramadol and tylenol without relief - at this time repeat labs, EKG< will start on flexeril. Seems MSK in nature dispo per results and findings. Lab Data Result diagrams: 03/16/21 11:08 03/16/21 11:08 Labs: Lab Results 03/16/21 03/16/21 03/16/21 Range/Units 11:08 11:08 11:09 WBC 5.4 (4.8-10.8) X10*3/uL RBC 4.36 (4.20-5.50) X10*6/uL Hgb 13.7 (12.0-16.0) g/dl Hct 41.7 (37.0-47.0) % MCV 95.6 (80.0-98.0) fL MCH 31.4 (27.0-33.0) pg MCHC 32.9 (31.0-35.0) g/dl RDW 11.5 (11.0-16.0) % Plt Count 241 (160-400) X10*3/uL MPV 9.4 (9.4-12.3) fL Immature Gran % (Auto) 0.7 H (0.0-0.4) % Neut % (Auto) 83.5 H (45-73) % Lymph % (Auto) 6.1 L (20-40) % [place] % (Auto) 9.1 (2-11) % Eos % (Auto) 0.4 (0-4) % Baso % (Auto) 0.2 (0-2) % Lymph # (Auto) 0.3 L (1.2-4.9) X10*3/uL [place] # (Auto) 0.5 (0.1-1.2) X10*3/uL Eos # (Auto) 0.0 (0.0-0.4) X10*3/uL Baso # (Auto) 0.0 (0.0-0.2) X10*3/uL Abs Immat Gran (auto) 0.04 H (0.00-0.03) X10*3/uL Absolute Neuts (auto) 4.5 (2.0-8.3) x10*3/uL Absolute Nucleated RBC 0.000 (0.0-0.012) X10*3/uL Nucleated RBC % (auto) 0.0 (0.0-0.2) /100WBC Sodium 134 L (135-145) mmol/L Potassium 4.4 (3.3-5.1) mmol/L Chloride 102 (96-108) mmol/L Carbon Dioxide 26 (22-29) mmol/L Anion Gap 10 L (12-20) BUN 13 (9-16) mg/dL Creatinine 0.85 (0.5-1.4) mg/dL Estim Creat Clear Calc 53.5 Estimated GFR > 60 Random Glucose 191 H (60-115) mg/dL Calcium 9.0 (8.4-10.2) mg/dL Magnesium 2.3 (1.6-2.6) mg/dL COVID-19 (ALE) Positive A (Negative) COVID-19 Clin Com See Note ECG Data Attestation: I personally reviewed and interpreted this ECG as follows: Interpretation: Rate: 88 Rhythm: NSR [place]: normal Normal P waves. Normal FLOYD. Normal QRS complex. ST T wave :inverted t waves V1-V4 no ROMY qTC: normal prior studies: t wave inversions present on prior EKGs The study has been interpreted contemporaneously by me. . Discharge Plan Discharge Clinical Impression: COVID-19, Acute shoulder pain Patient Disposition: Home, Self-Care Instructions: Arm Pain (ED), COVID-19 (Coronavirus Disease 2019) (ED) Additional Instructions: return to ED for any worsening symptoms or concerns YOU HAVE COVID AGAIN - THIS DOES HAPPEN QUARANTINE PROTECT OTHERS WEAR A MASK - MONITOR YOUR BREATHING Prescriptions: No Action cyclobenzaprine 10 mg tablet 10 mg PO Q8H Qty: 10 RF: 0 naproxen 500 mg tablet 500 mg PO BID PRN (Reason: pain) Qty: 10 RF: 0 tramadol 50 mg tablet 50 mg PO Q6H PRN (Reason: pain) Qty: 20 RF: 0 Stand Alone Forms: Work/School Release Print Language: Georgian
--- NOTE | 2021-03-16 10:19 | ECG_ITS ---
Test Reason : CHEST PAIN Blood Pressure : / mmHG Vent. Rate : 088 BPM Atrial Rate : 088 BPM P-R Int : 140 ms QRS Dur : 074 ms QT Int : 352 ms P-R-T Axes : 040 034 036 degrees QTc Int : 425 ms Normal sinus rhythm Cannot rule out Inferior infarct , age undetermined - could be normal variant T wave abnormality, consider anterior ischemia Abnormal ECG When compared with ECG of 13-MAR-2021 02:08, T wave inversion now evident in Anterior leads Referred By: Suellen Rehman Electronically Signed By:RELL RAE
[2021-03-16] MEDS: Lidocaine 4 % Patch ADH..PATCH 1 PATCH TRANSDERMA (10:40)
[2021-03-16] MEDS: Cyclobenzaprine HCl 10 MG TABLET PO (10:40)
[2021-03-16 11:13] LABS: MANUAL DIFF FLAG NO
[2021-03-16 11:15] LABS: Basophils Percent Auto 0.2 % (0-2); Eosinophils Percent Auto 0.4 % (0-4); Hematocrit 41.7 % (37.0-47.0); Hemoglobin 13.7 g/dl (12.0-16.0); Imm Gran Abs Auto 0.04 X10*3/uL (0.00-0.03); Imm Gran Pct Auto 0.7 % (0.0-0.4); Lymphocytes Absolute Auto 0.3 X10*3/uL (1.2-4.9); Lymphocytes Percent Auto 6.1 % (20-40); Mean Corpuscular HGB Conc 32.9 g/dl (31.0-35.0); Mean Corpuscular Hemoglobin 31.4 pg (27.0-33.0); Mean Corpuscular Volume 95.6 fL (80.0-98.0); Mean Platelet Volume 9.4 fL (9.4-12.3); Monocytes Absolute Auto 0.5 X10*3/uL (0.1-1.2); Monocytes Percent Auto 9.1 % (2-11); Neutrophils Absolute Auto 4.5 x10*3/uL (2.0-8.3); Neutrophils Percent Auto 83.5 % (45-73); Platelet Count 241 X10*3/uL (160-400); Red Blood Count 4.36 X10*6/uL (4.20-5.50); Red Cell Distribution Width 11.5 % (11.0-16.0); White Blood Count 5.4 X10*3/uL (4.8-10.8)
[2021-03-16 11:25] LABS: COVID-19 Test Positive (Negative)
[2021-03-16 11:28] LABS: Anion Gap 10 (12-20); Blood Urea Nitrogen 13 mg/dL (9-16); Carbon Dioxide 26 mmol/L (22-29); Chloride 102 mmol/L (96-108); Creatinine Clr Calc Pharmacy 53.5; Estimated Glomerular Filt Rate > 60; Glucose Random 191 mg/dL (60-115); Magnesium 2.3 mg/dL (1.6-2.6); Potassium 4.4 mmol/L (3.3-5.1); Sodium 134 mmol/L (135-145)
== END 2021-03-16 11:48 | disposition home or self-care (01) ==
PROVIDERS: Emergency Provider Emergency Medicine; PCP Internal Medicine
DX: U07.1 COVID-19 (principal); M25.511 Pain in right shoulder; E11.9 Type 2 diabetes mellitus without complications
CPT/HCPCS: 36415; 80048; 83735; 85025; 87635; 93005; 99283; 99284

== ENCOUNTER → 2021-04-10 13:26 | Outpatient (BNVA) | payer MEDICARE, MEDICAID, SELFPAY | PROVIDERS: PCP Internal Medicine; Visit Provider Physician Assistant | DX: M19.012 Primary osteoarthritis, left shoulder (principal); M19.011 Primary osteoarthritis, right shoulder | CPT/HCPCS: 20610; 99212; J1020 ==

== ENCOUNTER → 2021-05-24 13:23 | Outpatient (BNVA) | payer MEDICARE, MEDICAID, SELFPAY | PROVIDERS: PCP Internal Medicine; Referring Provider Internal Medicine; Visit Provider Nurse Practitioner | DX: K59.04 Chronic idiopathic constipation (principal); K21.9 Gastro-esophageal reflux disease without esophagitis; F03.90 Unspecified dementia, unspecified severity, without behavioral disturbance, psychotic disturbance, mood disturbance, and anxiety | CPT/HCPCS: 99202 ==

== ENCOUNTER 2021-05-28 13:46 | Emergency (ER) | payer MEDICARE, MEDICAID, SELFPAY ==
--- NOTE | ~2021-05-28 | XR_ITS ---
EXAMINATION: XR CHEST CLINICAL INFORMATION: Chest pain COMPARISON: 10/01/2020 TECHNIQUE: 2 views of the chest were obtained. FINDINGS: The cardiomediastinal silhouette is stable. The lungs are well expanded. There is mild vascular congestion without overt edema. No consolidation or effusion. Degenerative changes in the spine. XR/XR chest 2V IMPRESSION: Mild vascular congestion without overt pulmonary edema.
--- NOTE | ~2021-05-28 | CT_ITS ---
EXAMINATION: CT ABDOMEN AND PELVIS WITHOUT CONTRAST CLINICAL INFORMATION: r sided pain with r flank pain . COMPARISON: 03/21/2017. TECHNIQUE: Multidetector volumetric imaging was performed from the superior aspect of the liver through the pubic symphysis without contrast per renal stone protocol. Sagittal and coronal reformatted images were obtained on the technologist workstation. This CT examination was performed using dose optimization techniques as appropriate, variously including the following: *Automated exposure control *Adjustment of mA and/or kV according to patient size (this includes techniques or standardized protocols for targeted exams where dose is matched to indication/reason for exam; i.e. extremities or head) *Use of iterative reconstruction technique DLP: 513 mGy-cm. FINDINGS: LUNG BASES: The visualized lung bases are unremarkable. LIVER, GALLBLADDER, BILIARY TREE: The non-contrast liver is normal in size, shape, and attenuation. No focal hepatic lesion or biliary ductal dilatation is present. Probable tiny gallbladder fundal diverticulum or fold but otherwise the gallbladder is unremarkable with no evidence of radiopaque gallstones, gallbladder wall thickening, or obvious pericholecystic inflammatory changes. PANCREAS: Unremarkable. SPLEEN: Unremarkable. ADRENAL GLANDS: Unremarkable. KIDNEYS AND URETERS: The kidneys are normal in size, shape, and attenuation. No hydronephrosis, hydroureter, or calculi seen. No perinephric stranding. BLADDER: Unremarkable. GASTROINTESTINAL TRACT: Prominent amount of stool seen throughout the colon to the rectum. No colonic wall thickening or pericolonic inflammatory change. A few scattered colonic diverticula are incidentally noted. Normal-appearing appendix in the right lower quadrant. 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 ABDOMINAL WALL: No significant hernia is appreciated. LYMPHOVASCULAR STRUCTURES: Mild vascular calcification within the aorta. No bulky retroperitoneal or mesenteric adenopathy. PELVIC VISCERA: Presumably surgically absent. OSSEUS STRUCTURES: Unremarkable. CT/CT abdomen pelvis wo con IMPRESSION: Mild chronic appearing changes. No acute intra-abdominal process..
[2021-05-28 13:53] VITALS: BP 130/79; PULSE 90; RESP 19; TEMP 36.6; O2SAT 99; BMI 31.1
--- NOTE | 2021-05-28 13:58 | ECG_ITS ---
Test Reason : CHEST PAIN Blood Pressure : / mmHG Vent. Rate : 080 BPM Atrial Rate : 080 BPM P-R Int : 138 ms QRS Dur : 072 ms QT Int : 366 ms P-R-T Axes : 035 032 031 degrees QTc Int : 422 ms Normal sinus rhythm Normal ECG When compared with ECG of 16-MAR-2021 11:02, No significant change was found Referred By: Generic ED Physician Electronically Signed By:LEIA ARMSTRONG MD
[2021-05-28 14:24] LABS: MANUAL DIFF FLAG NO
[2021-05-28 14:26] LABS: Basophils Percent Auto 0.6 % (0-2); Eosinophils Absolute Auto 0.2 X10*3/uL (0.0-0.4); Eosinophils Percent Auto 3.3 % (0-4); Hematocrit 40.5 % (37.0-47.0); Hemoglobin 13.2 g/dl (12.0-16.0); Imm Gran Abs Auto 0.02 X10*3/uL (0.00-0.03); Imm Gran Pct Auto 0.4 % (0.0-0.4); Lymphocytes Absolute Auto 1.1 X10*3/uL (1.2-4.9); Lymphocytes Percent Auto 20.2 % (20-40); Mean Corpuscular HGB Conc 32.6 g/dl (31.0-35.0); Mean Corpuscular Hemoglobin 31.2 pg (27.0-33.0); Mean Corpuscular Volume 95.7 fL (80.0-98.0); Mean Platelet Volume 9.8 fL (9.4-12.3); Monocytes Absolute Auto 0.5 X10*3/uL (0.1-1.2); Monocytes Percent Auto 8.5 % (2-11); Neutrophils Absolute Auto 3.6 x10*3/uL (2.0-8.3); Platelet Count 276 X10*3/uL (160-400); Red Blood Count 4.23 X10*6/uL (4.20-5.50); Red Cell Distribution Width 11.9 % (11.0-16.0); White Blood Count 5.4 X10*3/uL (4.8-10.8)
[2021-05-28 14:30] LABS: Appearance Urine HAZY; Color Urine YELLOW; Glucose Urine UA NEG (NEG); Leukocyte Esterase Urine NEG (NEG); Nitrite Urine NEG (NEG); PH 5.5 (5.0-8.0); Specific Gravity - Urine >= 1.030 (1.005-1.025); Urine Blood NEG (NEG); Urine Ketones NEG (NEG); Urine Protein TRACE MG/DL (NEG-TRACE)
[2021-05-28 14:39] LABS: Anion Gap 11 (12-20); Blood Urea Nitrogen 24 mg/dL (9-16); Calcium 9.6 mg/dL (8.4-10.2); Carbon Dioxide 28 mmol/L (22-29); Chloride 107 mmol/L (96-108); Creatinine Clr Calc Pharmacy 46.8; Estimated Glomerular Filt Rate 59; Glucose Random 128 mg/dL (60-115); Potassium 4.5 mmol/L (3.3-5.1); Sodium 141 mmol/L (135-145)
[2021-05-28 14:43] LABS: IDNOW Serial# 08D9AD1C; Influenza A Negative (Negative); Influenza B2 Negative (Negative)
[2021-05-28 14:44] LABS: COVID-19 Test Negative (Negative)
[2021-05-28 14:46] LABS: Troponin-I High Sensitivity < 3.5 ng/L (<3.5-17.0)
--- NOTE | 2021-05-28 20:08 | ED.GENADULT ---
HPI - General Adult General Chief complaint: General Medical Stated complaint: Back pain/headache/bodyaches Time Seen by Provider: 05/28/21 20:08 Source: patient Mode of arrival: ambulatory Limitations: no limitations History of Present Illness HPI narrative: With history of dementia complaining of body aches for last few days and back pain no cough no shortness of breath no fever on arrival patient had COVID in March 04 since then been feeling like this patient worried that she might be having COVID-19 again patient also complaining of mid diffuse abdominal pain for last few days no nausea no vomiting no diarrhea Related Data Home Medications Medication Instructions Recorded Confirmed acetaminophen 500 mg tablet 1,000 mg PO Q8H PRN 05/24/21 Previous Rx's Medication Instructions Recorded cyclobenzaprine 10 mg tablet 10 mg PO Q8H #10 tab 06/03/20 naproxen 500 mg tablet 500 mg PO BID PRN #10 tab 06/03/20 tramadol 50 mg tablet 50 mg PO Q6H PRN #20 tab 03/13/21 docusate sodium 100 mg capsule 100 mg PO BID 30 Days #60 cap 05/24/21 (Colace) sennosides 8.6 mg capsule (senna) 17.2 mg PO BEDTIME 30 Days #60 cap 05/24/21 cyclobenzaprine 10 mg tablet 10 mg PO Q8H PRN #20 tab 05/28/21 tramadol 50 mg tablet 50 mg PO Q6H PRN #20 tab 05/28/21 Allergies Allergy/AdvReac Type Severity Reaction Status Date / Time No Known Allergies Allergy Verified 05/24/21 14:04 [No Known Allergies*] Review of Systems Review of Systems: Yes all other systems are reviewed and are negative PMFSH Past Medical History Medical History Diabetes type 2, controlled High cholesterol Surgical History H/O section H/O: hysterectomy Social History Social History Alcohol intake: never Patient Tobacco Use Status: Never used Tobacco Advance Directives: No Advance Directives Information Provided: Yes Current occupation: [employer] Physical Exam ED Vital Signs: Vital Signs - 24 hr 05/28/21 13:53 Temperature 98 F Pulse Rate 90 Respiratory Rate 19 Blood Pressure 130/79 Pulse Oximetry 99 BMI result Body Mass Index 31.1 Appearance: Alert. Oriented X3. No acute distress. Eyes: PERRLA, No Nystagmus ENT: Pharynx normal. Oral Mucosa moist Neck: Normal inspection. Neck supple. CVS: Normal heart rate and rhythm. Pulses normal. Respiratory: No respiratory distress. Equal air entry bilateral, no wheezing/rales/rhonchi Abdomen: Soft and nontender. Bowel sounds are present, no mass palpable, no CVA tenderness Skin: Skin warm and dry. Normal skin color. Normal skin turgor. Extremities: No lower extremity edema. No calf tenderness Neuro: Oriented X 3. No motor deficit. No sensory deficit.No cerebellar signs , cranial nerves II-XII intact Medical Decision Making MDM Narrative Medical decision making narrative: Patient with nonspecific complaints workup is negative will discharge patient Lab Data Lab results reviewed: Yes I reviewed the patient's lab results. Result diagrams: 05/28/21 14:18 05/28/21 14:18 Labs: Lab Results 05/28/21 05/28/21 05/28/21 Range/Units 14:11 14:11 14:18 WBC (4.8-10.8) X10*3/uL RBC (4.20-5.50) X10*6/uL Hgb (12.0-16.0) g/dl Hct (37.0-47.0) % MCV (80.0-98.0) fL MCH (27.0-33.0) pg MCHC (31.0-35.0) g/dl RDW (11.0-16.0) % Plt Count (160-400) X10*3/uL MPV (9.4-12.3) fL Immature Gran % (Auto) (0.0-0.4) % Neut % (Auto) (45-73) % Lymph % (Auto) (20-40) % [place] % (Auto) (2-11) % Eos % (Auto) (0-4) % Baso % (Auto) (0-2) % Lymph # (Auto) (1.2-4.9) X10*3/uL [place] # (Auto) (0.1-1.2) X10*3/uL Eos # (Auto) (0.0-0.4) X10*3/uL Baso # (Auto) (0.0-0.2) X10*3/uL Abs Immat Gran (auto) (0.00-0.03) X10*3/uL Absolute Neuts (auto) (2.0-8.3) x10*3/uL Absolute Nucleated RBC (0.0-0.012) X10*3/uL Nucleated RBC % (auto) (0.0-0.2) /100WBC Sodium 141 (135-145) mmol/L Potassium 4.5 (3.3-5.1) mmol/L Chloride 107 (96-108) mmol/L Carbon Dioxide 28 (22-29) mmol/L Anion Gap 11 L (12-20) BUN 24 H D (9-16) mg/dL Creatinine 0.95 (0.5-1.4) mg/dL Estim Creat Clear Calc 46.8 Estimated GFR 59 Random Glucose 128 H (60-115) mg/dL Calcium 9.6 D (8.4-10.2) mg/dL Troponin I High Sens (<3.5-17.0) ng/L Urine Color Urine Appearance Urine pH (5.0-8.0) Ur Specific [place] (1.005-1.025) Urine Protein (NEG-TRACE) MG/DL Urine Glucose (UA) (NEG) MG/DL Urine Ketones (NEG) MG/DL Urine Blood (NEG) Urine Nitrite (NEG) Ur Leukocyte Esterase (NEG) COVID-19 (ALE) Negative (Negative) COVID-19 Clin Com See Note Influenza Type A (DEE) Negative (Negative) Influenza Type B (DEE) Negative (Negative) Influenza A & B Note See Note 05/28/21 05/28/21 05/28/21 Range/Units 14:18 14:19 14:19 WBC 5.4 (4.8-10.8) X10*3/uL RBC 4.23 (4.20-5.50) X10*6/uL Hgb 13.2 (12.0-16.0) g/dl Hct 40.5 (37.0-47.0) % MCV 95.7 (80.0-98.0) fL MCH 31.2 (27.0-33.0) pg MCHC 32.6 (31.0-35.0) g/dl RDW 11.9 (11.0-16.0) % Plt Count 276 (160-400) X10*3/uL MPV 9.8 (9.4-12.3) fL Immature Gran % (Auto) 0.4 (0.0-0.4) % Neut % (Auto) 67.0 (45-73) % Lymph % (Auto) 20.2 (20-40) % [place] % (Auto) 8.5 (2-11) % Eos % (Auto) 3.3 (0-4) % Baso % (Auto) 0.6 (0-2) % Lymph # (Auto) 1.1 L (1.2-4.9) X10*3/uL [place] # (Auto) 0.5 (0.1-1.2) X10*3/uL Eos # (Auto) 0.2 (0.0-0.4) X10*3/uL Baso # (Auto) 0.0 (0.0-0.2) X10*3/uL Abs Immat Gran (auto) 0.02 (0.00-0.03) X10*3/uL Absolute Neuts (auto) 3.6 (2.0-8.3) x10*3/uL Absolute Nucleated RBC 0.000 (0.0-0.012) X10*3/uL Nucleated RBC % (auto) 0.0 (0.0-0.2) /100WBC Sodium (135-145) mmol/L Potassium (3.3-5.1) mmol/L Chloride (96-108) mmol/L Carbon Dioxide (22-29) mmol/L Anion Gap (12-20) BUN (9-16) mg/dL Creatinine (0.5-1.4) mg/dL Estim Creat Clear Calc Estimated GFR Random Glucose (60-115) mg/dL Calcium (8.4-10.2) mg/dL Troponin I High Sens < 3.5 (<3.5-17.0) ng/L Urine Color YELLOW Urine Appearance HAZY Urine pH 5.5 (5.0-8.0) Ur Specific [place] >= 1.030 H (1.005-1.025) Urine Protein TRACE (NEG-TRACE) MG/DL Urine Glucose (UA) NEG (NEG) MG/DL Urine Ketones NEG (NEG) MG/DL Urine Blood NEG (NEG) Urine Nitrite NEG (NEG) Ur Leukocyte Esterase NEG (NEG) COVID-19 (ALE) (Negative) COVID-19 Clin Com Influenza Type A (DEE) (Negative) Influenza Type B (DEE) (Negative) Influenza A & B Note Discharge Plan Discharge Clinical Impression: Chronic back pain Patient Disposition: Home, Self-Care Instructions: Chronic Back Pain (DC) Additional Instructions: Continue muscle relaxant and pain medication as prescribed and follow with PCP Contin?e con los relajantes musculares y los analg?sicos seg?n lo prescrito y siga con PCP Prescriptions: New tramadol 50 mg tablet 50 mg PO Q6H PRN (Reason: pain) Qty: 20 0RF cyclobenzaprine 10 mg tablet 10 mg PO Q8H PRN (Reason: Muscle Spasm) Qty: 20 0RF No Action cyclobenzaprine 10 mg tablet 10 mg PO Q8H Qty: 10 0RF naproxen 500 mg tablet 500 mg PO BID PRN (Reason: pain) Qty: 10 0RF tramadol 50 mg tablet 50 mg PO Q6H PRN (Reason: pain) Qty: 20 0RF acetaminophen 500 mg tablet 1,000 mg PO Q8H PRN0RF docusate sodium [Colace] 100 mg capsule 100 mg PO BID 30 Days Qty: 60 6RF senna 8.6 mg capsule 17.2 mg PO BEDTIME 30 Days Qty: 60 6RF Interventions: ED Discharge Assessment Last Done: 05/28/21 23:17 Discharge Date/Time: 05/28/21 23:18 Print Language: Lao
[2021-05-28 20:16] VITALS: BP 140/79; PULSE 71; RESP 18; TEMP 36.5; O2SAT 99
--- NOTE | 2021-05-28 20:55 | PC.NURSE ---
patient a&ox3, c/o abd and back pain 12/31, vss, veterans contact representative applied, awaiting provider, will continue to monitor.
[2021-05-28] MEDS: Ketorolac Tromethamine 60 MG/2 ML VIAL IM (21:27)
--- NOTE | 2021-05-28 21:27 | PC.NURSE ---
pt exhibiting a raised rash to arms and abdomen which was present prior to medication administration, provider is being notified
[2021-05-28] MEDS: dexAMETHasone 2 MG TABLET 10 MG PO (21:53)
[2021-05-28] MEDS: diphenhydrAMINE HCL 50 MG/ML VIAL IM (21:53)
--- NOTE | 2021-05-28 22:19 | PC.NURSE ---
pt rash improving post medication.
[2021-05-28 22:37] VITALS: BP 138/92; PULSE 69; RESP 12; O2SAT 99
--- NOTE | 2021-05-28 22:39 | PC.NURSE ---
pt a&ox3, feeling much better, rash improving, only as small amount of pain (2/10). pt has questions for provider re discharge. it web development consultant present.
== END 2021-05-28 23:18 | disposition home or self-care (01) ==
PROVIDERS: Emergency Provider Internal Medicine; PCP Internal Medicine
DX: G89.29 Other chronic pain (principal); M54.9 Dorsalgia, unspecified; E11.9 Type 2 diabetes mellitus without complications; E78.5 Hyperlipidemia, unspecified; Z20.822 Contact with and (suspected) exposure to COVID-19
CPT/HCPCS: 36415; 71046; 74176; 80048; 81003; 84484; 85025; 87502; 87635; 93005; 96372; 99284; J1200; J1885; J8540

== ENCOUNTER 2021-06-18 12:24 | Outpatient (REF) | payer MEDICARE, MEDICAID, SELFPAY ==
--- NOTE | ~2021-06-18 | MM_ITS ---
EXAMINATION: MM SCREENING DIGITAL BREAST TOMOSYNTHESIS, BILATERAL CLINICAL INFORMATION: Screening. Asymptomatic. The lifetime risk of breast cancer based on the Tyrer-Cuzick Model is 3%. COMPARISON: Mammography: 06/12/2020, 12/15/2018, 12/11/2017, 11/07/2016 TECHNIQUE: Digital breast tomosynthesis is performed in both the craniocaudal and mediolateral oblique views along with computer-aided detection (CAD). Synthesized 2D images are generated from the tomosynthesis. FINDINGS: There are scattered areas of fibroglandular density (ACR BI-RADS breast composition Category b). Parenchymal pattern is similar to prior studies. There is no interval mass or developing density or architectural abnormality. There is a small stable asymmetric density mid medial left breast on CC view. There are no abnormal calcifications. The axilla are unremarkable. Mild nipple retraction is a chronic finding. There are no significant changes from prior studies. MM/MM tomosynthesis screening BI IMPRESSION: No significant changes from prior exams. ASSESSMENT: BI-RADS 2: Benign RECOMMENDATION: Routine annual mammography screening. This patient's information was entered into a reminder system with a target due date for their next mammogram.
== END 2021-06-18 12:25 | disposition home or self-care (01) ==
LOC: HO.MAMMO 12:24
PROVIDERS: Visit Provider Internal Medicine
DX: Z12.31 Encounter for screening mammogram for malignant neoplasm of breast (principal)
CPT/HCPCS: 77063; 77067

== ENCOUNTER → 2021-06-21 13:37 | Outpatient (BNVA) | payer MEDICARE, MEDICAID, SELFPAY | PROVIDERS: PCP Internal Medicine; Referring Provider Internal Medicine; Visit Provider Nurse Practitioner | DX: K59.04 Chronic idiopathic constipation (principal); K21.9 Gastro-esophageal reflux disease without esophagitis | CPT/HCPCS: 99212 ==

== ENCOUNTER → 2021-07-17 12:28 | Outpatient (BNVA) | payer MEDICARE, MEDICAID, SELFPAY | PROVIDERS: PCP Internal Medicine; Visit Provider Physician Assistant | DX: M25.511 Pain in right shoulder (principal); M19.012 Primary osteoarthritis, left shoulder; E11.9 Type 2 diabetes mellitus without complications | CPT/HCPCS: 20610; 99212; J1020 ==

== ENCOUNTER 2021-07-23 14:00 | Outpatient (RCR) | payer MEDICARE, MEDICAID, SELFPAY | END 2021-08-31 10:30 | disposition home or self-care (01) | LOC: HO.PT 14:00 | PROVIDERS: PCP Internal Medicine; Visit Provider Internal Medicine | DX: M25.511 Pain in right shoulder (principal) | CPT/HCPCS: 97110; 97161; 97162; 97530 ==

== ENCOUNTER 2021-09-06 13:18 | Outpatient (REF) | payer MEDICARE, MEDICAID, SELFPAY ==
--- NOTE | ~2021-09-06 | MM_ITS ---
EXAMINATION: BONE DENSITOMETRY CLINICAL INDICATION: Menopause. COMPARISON: None (current study represents initial baseline exam). TECHNIQUE: Using a [employer] DXA System (software version: 13.1) manufactured by [employer], dual-energy x-ray absorptiometry was performed of the lumbar spine and left hip. The images are of good technical quality. Summary results are attached. FINDINGS: AP SPINE L1-L4: BMD 0.694 g/cm2, Z-score -2.4, T-score -4.0, osteoporosis. LEFT FEMUR, NECK: BMD 0.652 g/cm2, Z-score -1.2, T-score -2.8, osteoporosis. LEFT FEMUR, TOTAL: BMD 0.704 g/cm2, Z-score -1.1, T-score -2.4, osteopenia. IDENTIFIED RISK FACTORS: Rheumatoid arthritis, secondary osteoporosis, menopause, hysterectomy. HISTORY OF FRACTURE: None listed. MEDICATIONS: Vitamin D. MM/XR DEXA axial skeleton IMPRESSION: 1. DIAGNOSIS: Osteoporosis based on the lowest T-score value of -4.0 in the lumbar spine applying World Health Organization criteria. 2. 10-YEAR FRACTURE RISK PREDICTION, FRAX: According to the guidelines, FRAX calculation should only be performed on patients in the osteopenia bone density category. Therefore, FRAX was not performed on this patient. 3. Treatment Recommendations: NOF guidelines recommend consideration for treatment in postmenopausal women and men age 50 and older presenting with the following: -A hip or vertebral (clinical or morphometric) fracture. -T-score less than or equal to -2.5 at the femoral neck or spine after appropriate evaluation to exclude secondary causes. -Low bone mass at the hip or spine and a 10-year fracture probability by FRAX of greater than or equal to 3% for hip fracture or greater than or equal to 20% for major osteoporotic fracture based on the [place] adapted WHO algorithm. 4. Other Recommendations: All treatment decisions require clinical judgment and consideration of individual patient factors, including patient preferences, comorbidities, previous drug use, risk factors not captured in the FRAX model (e.g. frailty, falls, vitamin D deficiency, increased bone turnover, interval significant decline in bone density) and possible under or overestimation of fracture risk by FRAX. Additional medical evaluation for secondary cause of low bone mineral density may be appropriate. FUTURE SCAN RECOMMENDATION: People with diagnosed cases of osteoporosis or at high risk for fracture should have regular bone mineral density tests. For patients eligible for Medicare, routine testing is allowed once every 2 years. The testing frequency can be increased to one year for patients who have rapidly progressing disease, those who are receiving or discontinuing medical therapy to restore bone mass, or have additional risk factors.
== END 2021-09-06 13:19 | disposition home or self-care (01) ==
LOC: HO.MAMMO 13:18
PROVIDERS: Visit Provider Internal Medicine
DX: Z13.820 Encounter for screening for osteoporosis (principal); M06.9 Rheumatoid arthritis, unspecified; Z78.0 Asymptomatic menopausal state; Z90.710 Acquired absence of both cervix and uterus
CPT/HCPCS: 77080

== ENCOUNTER 2021-10-21 12:40 | Emergency (ER) | payer MEDICARE, MEDICAID, SELFPAY ==
--- NOTE | ~2021-10-21 | XR_ITS ---
EXAMINATION: XR HIP, RIGHT CLINICAL INFORMATION: Pain status post fall 2 weeks ago COMPARISON: None TECHNIQUE: AP pelvis, AP and frog-leg lateral views right hip FINDINGS: No fracture or dislocation. Borderline coxa profunda bilaterally. Bilateral hip joint spaces are maintained. No large osteophytes. No radiographic evidence of femoral head avascular necrosis. Pubic symphysis and the sacroiliac joints are congruent and intact. XR/XR hip RT w [id number] IMPRESSION: No acute fracture or dislocation identified.
[2021-10-21 13:13] VITALS: BP 114/77; PULSE 70; RESP 18; TEMP 36.7; O2SAT 98; BMI 28.6
--- NOTE | 2021-10-21 13:15 | ECG_ITS ---
Test Reason : CHEST PAIN Blood Pressure : / mmHG Vent. Rate : 063 BPM Atrial Rate : 063 BPM P-R Int : 136 ms QRS Dur : 076 ms QT Int : 398 ms P-R-T Axes : 032 026 021 degrees QTc Int : 407 ms Normal sinus rhythm Nonspecific T wave abnormality Abnormal ECG When compared with ECG of 28-MAY-2021 14:01, No significant change was found Referred By: Generic ED Physician Electronically Signed By:LEIA ARMSTRONG MD
[2021-10-21 13:37] LABS: Basophils Percent Auto 0.4 % (0-2); Eosinophils Absolute Auto 0.2 X10*3/uL (0.0-0.4); Eosinophils Percent Auto 2.6 % (0-4); Hematocrit 40.2 % (37.0-47.0); Hemoglobin 13.1 g/dl (12.0-16.0); Imm Gran Abs Auto 0.02 X10*3/uL (0.00-0.03); Imm Gran Pct Auto 0.3 % (0.0-0.4); Lymphocytes Absolute Auto 1.1 X10*3/uL (1.2-4.9); Lymphocytes Percent Auto 15.8 % (20-40); MANUAL DIFF FLAG NO; Mean Corpuscular HGB Conc 32.6 g/dl (31.0-35.0); Mean Corpuscular Hemoglobin 31.1 pg (27.0-33.0); Mean Corpuscular Volume 95.5 fL (80.0-98.0); Mean Platelet Volume 9.8 fL (9.4-12.3); Monocytes Absolute Auto 0.5 X10*3/uL (0.1-1.2); Monocytes Percent Auto 7.8 % (2-11); Neutrophils Absolute Auto 5.1 x10*3/uL (2.0-8.3); Neutrophils Percent Auto 73.1 % (45-73); Platelet Count 259 X10*3/uL (160-400); Red Blood Count 4.21 X10*6/uL (4.20-5.50); Red Cell Distribution Width 11.7 % (11.0-16.0); White Blood Count 6.9 X10*3/uL (4.8-10.8)
[2021-10-21 13:49] LABS: Anion Gap 13 (12-20); Blood Urea Nitrogen 21 mg/dL (9-16); Calcium 9.3 mg/dL (8.4-10.2); Carbon Dioxide 25 mmol/L (22-29); Chloride 107 mmol/L (96-108); Creatinine Clr Calc Pharmacy 51.8; Estimated Glomerular Filt Rate > 60; Glucose Random 115 mg/dL (60-115); Potassium 4.9 mmol/L (3.3-5.1); Sodium 140 mmol/L (135-145)
[2021-10-21 13:53] LABS: COVID-19 Test Negative (Negative)
[2021-10-21 13:57] LABS: Troponin-I High Sensitivity < 3.5 ng/L (<3.5-17.0)
[2021-10-21 14:37] VITALS: BP 167/85; PULSE 71; RESP 18; TEMP 36.5; O2SAT 100
[2021-10-21] MEDS: Acetaminophen 325 MG TABLET 975 MG PO (15:19)
[2021-10-21] MEDS: Ketorolac Tromethamine 30 MG/ML VIAL 15 MG IVPUSH (15:20)
[2021-10-21] MEDS: Lidocaine 4 % Patch ADH..PATCH 1 PATCH TRANSDERMA (15:20)
[2021-10-21 15:47] VITALS: BP 134/69; PULSE 62; RESP 16; TEMP 36.6; O2SAT 99
--- NOTE | 2021-10-21 17:07 | ED_ITS ---
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 However, it is noted in the triage note that initially patient was complaining of left-sided chest pain radiating up into her neck and denies any injury. At the time of interview with a rock lather patient denies any headache or chest pain. Related Data Home Medications Medication Instructions Recorded Confirmed acetaminophen 500 mg tablet 1,000 mg PO Q8H PRN 05/24/21 amlodipine 2.5 mg tablet 2.5 mg PO DAILY 06/21/21 06/21/21 polyethylene glycol 3350 17 gram 17 g PO DAILY 06/21/21 06/21/21 oral powder packet (Miralax) Previous Rx's Medication Instructions Recorded naproxen 500 mg tablet 500 mg PO BID PRN pain #10 tabs 06/03/20 tramadol 50 mg tablet 50 mg PO Q6H PRN pain #20 tabs 03/13/21 docusate sodium 100 mg capsule 100 mg PO BID 30 days #60 caps 05/24/21 (Colace) sennosides 8.6 mg capsule (senna) 17.2 mg PO BEDTIME constipation 30 05/24/21 days #60 caps cyclobenzaprine 10 mg tablet 10 mg PO Q8H PRN Muscle Spasm #20 05/28/21 tabs tramadol 50 mg tablet 50 mg PO Q6H PRN pain #20 tabs 05/28/21 famotidine 20 mg tablet 20 mg PO BID heartburn #60 tabs 06/21/21 Allergies Allergy/AdvReac Type Severity Reaction Status Date / Time No Known Allergies Allergy Verified 10/21/21 13:12 [No Known Allergies*] Review of Systems Review of Systems: Pertinent positives and negatives as stated in HPI 10 point review systems is otherwise negative. [facility] Past Medical History Source: nursing notes reviewed Medical History Diabetes type 2, controlled High cholesterol Surgical History H/O section H/O: hysterectomy Social History Social History Alcohol intake: never Patient Tobacco Use Status: Never used Tobacco Use of substances other than those prescribed or required for medical reasons: No Advance Directives: No Advance Directives Information Provided: Yes Current occupation: [employer] Physical Exam Vital Signs: Vital Signs: Last Vital Signs Temp 97.8 F 10/21/21 15:47 Pulse 62 10/21/21 15:47 Resp 16 10/21/21 15:47 BP 134/69 10/21/21 15:47 Pulse Ox 99 10/21/21 15:47 O2 Del Method 10/21/21 15:47 BMI result Body Mass Index 28.6 VITAL SIGNS: Reviewed. GENERAL: Well developed, well nourished, moderate to severe distress, patient is writhing around on the gurney grasping at her buttock. HEAD: Normocephalic/atraumatic, EYES: PERRLA, EOMI EARS: Ext canals without abnormality OROPHARYNX: no oral lesions noted, posterior pharynx clear LUNGS: Normal breath sounds. No adventitious sounds or accessory muscle use. SpO2<99> CARDIOVASCULAR: Regular rate and rhythm without noted murmurs, no JVD or lower extremity edema. ABDOMEN: Soft, non-tender, non-distended with bowel sounds. MUSCULOSKELETAL: No tenderness, deformities, or effusions noted on gross inspection. EXTREMITIES: No cyanosis, clubbing or edema. SKIN: Inspection of the skin reveals no rashes NEUROLOGIC: Alert and oriented x 4. Strength and sensation to light touch were grossly intact x 4. Course Course Course Narrative: 66-year-old female with history and clinical presentation most consistent with the sciatic as patient is afebrile, no evidence of tachycardia or hypotension and pain has been ongoing for more than 24 hours, history and clinical presentation in consistent with renal colic. Patient was provided with combination analgesics as well as lidocaine patch and on re-evaluation is noted to be more calm. Will pursue a hip/pelvic x-ray for further evaluation and will also provide additional pain medication. Signed out to Dr Almaguer to f/u XR. MDM - Chest Pain Lab Data Result diagrams: 10/21/21 13:30 10/21/21 13:30 Labs: Lab Results 10/21/21 10/21/21 10/21/21 Range/Units 13:30 13:30 13:30 WBC 6.9 (4.8-10.8) X10*3/uL RBC 4.21 (4.20-5.50) X10*6/uL Hgb 13.1 (12.0-16.0) g/dl Hct 40.2 (37.0-47.0) % MCV 95.5 (80.0-98.0) fL MCH 31.1 (27.0-33.0) pg MCHC 32.6 (31.0-35.0) g/dl RDW 11.7 (11.0-16.0) % Plt Count 259 (160-400) X10*3/uL MPV 9.8 (9.4-12.3) fL Immature Gran % (Auto) 0.3 (0.0-0.4) % Neut % (Auto) 73.1 H (45-73) % Lymph % (Auto) 15.8 L (20-40) % [place] % (Auto) 7.8 (2-11) % Eos % (Auto) 2.6 (0-4) % Baso % (Auto) 0.4 (0-2) % Lymph # (Auto) 1.1 L (1.2-4.9) X10*3/uL [place] # (Auto) 0.5 (0.1-1.2) X10*3/uL Eos # (Auto) 0.2 (0.0-0.4) X10*3/uL Baso # (Auto) 0.0 (0.0-0.2) X10*3/uL Abs Immat Gran (auto) 0.02 (0.00-0.03) X10*3/uL Absolute Neuts (auto) 5.1 (2.0-8.3) x10*3/uL Absolute Nucleated RBC 0.000 (0.0-0.012) X10*3/uL Nucleated RBC % (auto) 0.0 (0.0-0.2) /100WBC Sodium 140 (135-145) mmol/L Potassium 4.9 (3.3-5.1) mmol/L Chloride 107 (96-108) mmol/L Carbon Dioxide 25 (22-29) mmol/L Anion Gap 13 (12-20) BUN 21 H (9-16) mg/dL Creatinine 0.86 (0.5-1.4) mg/dL Estim Creat Clear Calc 51.8 Estimated GFR > 60 Random Glucose 115 (60-115) mg/dL Calcium 9.3 (8.4-10.2) mg/dL Troponin I High Sens (<3.5-17.0) ng/L COVID-19 (ALE) Negative (Negative) COVID-19 Clin Com See Note 10/21/21 Range/Units 13:30 WBC (4.8-10.8) X10*3/uL RBC (4.20-5.50) X10*6/uL Hgb (12.0-16.0) g/dl Hct (37.0-47.0) % MCV (80.0-98.0) fL MCH (27.0-33.0) pg MCHC (31.0-35.0) g/dl RDW (11.0-16.0) % Plt Count (160-400) X10*3/uL MPV (9.4-12.3) fL Immature Gran % (Auto) (0.0-0.4) % Neut % (Auto) (45-73) % Lymph % (Auto) (20-40) % [place] % (Auto) (2-11) % Eos % (Auto) (0-4) % Baso % (Auto) (0-2) % Lymph # (Auto) (1.2-4.9) X10*3/uL [place] # (Auto) (0.1-1.2) X10*3/uL Eos # (Auto) (0.0-0.4) X10*3/uL Baso # (Auto) (0.0-0.2) X10*3/uL Abs Immat Gran (auto) (0.00-0.03) X10*3/uL Absolute Neuts (auto) (2.0-8.3) x10*3/uL Absolute Nucleated RBC (0.0-0.012) X10*3/uL Nucleated RBC % (auto) (0.0-0.2) /100WBC Sodium (135-145) mmol/L Potassium (3.3-5.1) mmol/L Chloride (96-108) mmol/L Carbon Dioxide (22-29) mmol/L Anion Gap (12-20) BUN (9-16) mg/dL Creatinine (0.5-1.4) mg/dL Estim Creat Clear Calc Estimated GFR Random Glucose (60-115) mg/dL Calcium (8.4-10.2) mg/dL Troponin I High Sens < 3.5 (<3.5-17.0) ng/L COVID-19 (ALE) (Negative) COVID-19 Clin Com Discharge Plan Discharge Clinical Impression: Sciatica Patient Disposition: Still a Patient Instructions: Sciatica (ED) Prescriptions: No Action naproxen 500 mg tablet 500 mg PO BID PRN (Reason: pain) Qty: 10 0RF tramadol 50 mg tablet 50 mg PO Q6H PRN (Reason: pain) Qty: 20 0RF tramadol 50 mg tablet 50 mg PO Q6H PRN (Reason: pain) Qty: 20 0RF cyclobenzaprine 10 mg tablet 10 mg PO Q8H PRN (Reason: Muscle Spasm) Qty: 20 0RF acetaminophen 500 mg tablet 1,000 mg PO Q8H PRN docusate sodium [Colace] 100 mg capsule 100 mg PO BID 30 Days Qty: 60 6RF senna 8.6 mg capsule 17.2 mg PO BEDTIME 30 Days Qty: 60 6RF amlodipine 2.5 mg tablet 2.5 mg PO DAILY polyethylene glycol 3350 [Miralax] 17 gram powder in packet 17 g PO DAILY famotidine 20 mg tablet 20 mg PO BID Qty: 60 6RF Print Language: Kazakh
[2021-10-21] MEDS: oxyCODONE HCl Immed Release 5 MG TABLET PO (17:52)
[2021-10-21 17:56] VITALS: BP 149/84; PULSE 98; RESP 16; O2SAT 99
[2021-10-21 19:44] VITALS: PULSE 74; RESP 14
--- NOTE | 2021-10-21 19:45 | PC.NURSE ---
pt resting in bed, on cell phone. pt in no distress
[2021-10-21 19:52] VITALS: BP 156/79; PULSE 63; RESP 15; TEMP 36.6; O2SAT 97
--- NOTE | 2021-10-21 21:33 | PC.NURSE ---
pt a&o,no sob or chest pain. Reviewed discharge instructions with pt. pt verbalized understanding. 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
== END 2021-10-21 21:35 | disposition home or self-care (01) ==
PROVIDERS: Student in an Organized Health Care Education/Training Program; Emergency Provider Internal Medicine; PCP Internal Medicine
DX: M54.41 Lumbago with sciatica, right side (principal); R07.89 Other chest pain; R51.9 Headache, unspecified; M62.81 Muscle weakness (generalized); M25.551 Pain in right hip; Z20.822 Contact with and (suspected) exposure to COVID-19; Z79.899 Other long term (current) drug therapy
CPT/HCPCS: 36415; 73502; 80048; 84484; 85025; 87635; 93005; 96374; 99285; J1885

== ENCOUNTER 2021-10-26 08:52 | Emergency (ER) | payer MEDICARE, MEDICAID, SELFPAY ==
--- NOTE | ~2021-10-26 | CT_ITS ---
EXAMINATION: CT HIP WITHOUT CONTRAST, RIGHT CLINICAL INFORMATION: Pain. Can't walk. COMPARISON: Radiographs dated 10/21/2021. CT dated 05/28/2021 TECHNIQUE: Multidetector image imaging was obtained through the right hip without contrast. Multiplanar reformatted images in coronal and sagittal orientations were submitted. This CT examination was performed using dose optimization techniques as appropriate, variously including the following: *Automated exposure control *Adjustment of mA and/or kV according to patient size (this includes techniques or standardized protocols for targeted exams where dose is matched to indication/reason for exam; i.e. extremities or head) *Use of iterative reconstruction technique DLP: 201 mGy-cm FINDINGS: No fracture or malalignment. Bone mineralization appears normal. Mild axial joint space narrowing with tiny marginal osteophytes. Imaged portion of the innominate bone is intact. Imaged portion of the SI joints and pubic symphysis are normal. No evidence of avascular necrosis. The joint effusions. No fluid collections are identified around the right hip. Musculature is unremarkable. No appreciable fatty replacement or focal muscle swelling. Imaged intrapelvic soft tissues are normal. No adenopathy. No intraperitoneal free fluid. CT/CT hip RT wo con IMPRESSION: No acute osseous abnormalities at the right hip. Minimal osteoarthritis. Consider follow-up MRI of the pelvis on a nonemergent basis if there is persistent difficulty weightbearing or marked persistent pain.
[2021-10-26 09:00] VITALS: BP 148/80; BP 179/89; PULSE 85; RESP 16; TEMP 36.6; O2SAT 98; BMI 29.0
--- NOTE | 2021-10-26 09:27 | ED_ITS ---
HPI - Extremity Injury (Lower) General Chief Complaint: Extremity Injury, Lower <Yanet Benton NP - Last Filed: 10/26/21 17:34> Stated Complaint: neck/chest & left leg pain <Yanet Benton NP - Last Filed: 10/26/21 17:34> Time Seen by Provider: 10/26/21 09:22 <Yanet Benton NP - Last Filed: 10/26/21 17:34> Source: EMS and dye machine tender <Yanet Benton NP - Last Filed: 10/26/21 17:34> Mode of arrival: EMS <DAHLIA Kaur Last Filed: 10/26/21 17:34> Limitations: language barrier <Yanet Benton NP - Last Filed: 10/26/21 17:34> History of Present Illness HPI Narrative: 66-year-old female with a history of osteoarthritis, dementia, GERD, rin betes, migraines presents with reports of right-sided buttock pain with radiation down the right leg for the last 2 weeks. Patient reports 1 month ago she had a fall landing on the hip. Initially had no pain until 2 weeks ago. Patient seen here on Friday. She had x-rays which showed no acute finding. She was discharged home on tramadol and Flexeril. She tells me she does not like taking his medications because they make her feel drugged and dont help with the pain. Patient reports continued pain. She did follow-up with her primary care doctor and tells me that they change 1 the medications but she is unsure to what. This medications still makes her feel the same way and does not help with the pain. Patient denies associated numbness or tingling of extremity. No redness, warmth or swelling of the extremity. Patient does report a headache which she reported to the triage nurse. She tells me this is because she has been crying a lot at home. Feels typical to her previous migraines with no associated vision changes, nausea, vomiting, light sensitivity, dizziness, weakness or paresthesias of the extremities. <DAHLIA Kaur Last Filed: 10/26/21 17:34> Related Data Home Medications: Home Medications Medication Instructions Recorded Confirmed amlodipine 2.5 mg tablet 2.5 mg PO DAILY 06/21/21 10/26/21 atorvastatin 40 mg tablet 1 tab PO DAILY 10/26/21 10/26/21 baclofen 20 mg tablet 1 tab PO TID 10/26/21 10/26/21 ibuprofen 800 mg tablet 1 tab PO TID PRN Pain 10/26/21 10/26/21 melatonin 3 mg tablet 1 tab PO BEDTIME 10/26/21 10/26/21 Previous Rx's Medication Instructions Recorded cyclobenzaprine 10 mg tablet 10 mg PO Q8H PRN Muscle Spasm #20 05/28/21 tabs tramadol 50 mg tablet 50 mg PO Q6H PRN pain #20 tabs 10/21/21 oxycodone 5 mg tablet 5 mg PO Q8H PRN pain #8 tabs 10/26/21 <Yanet Benton NP - Last Filed: 10/26/21 17:34> Allergies/Adverse Reactions: Allergies Allergy/AdvReac Type Severity Reaction Status Date / Time No Known Allergies Allergy Verified 10/21/21 13:12 [No Known Allergies*] <Yanet Benton NP - Last Filed: 10/26/21 17:34> Review of Systems Review of Systems: Yes all other systems are reviewed and are negative <Yanet Benton NP - Last Filed: 10/26/21 17:34> Constitutional: Constitutional: Reports no additional constitutional complaints, Denies body ache(s), Denies chills, Denies fever(s), Denies headache(s) and Denies weakness <Yanet Benton NP - Last Filed: 10/26/21 17:34> Eyes: Eyes: Reports no additional eye complaints and Denies change in vision <Yanet Benton NP - Last Filed: 10/26/21 17:34> ENT: Reports system reviewed and no additional complaints, except as documented, Denies dizziness, Denies headache(s), Denies nasal congestion, Denies nasal discharge and Denies neck pain <Yanet Benton NP - Last Filed: 10/26/21 17:34> Cardiovascular: Cardiovascular: Reports no additional cardiovascular complaints, Denies chest pain, Denies leg edema and Denies dyspnea <Yanet Benton NP - Last Filed: 10/26/21 17:34> Respiratory: Respiratory: Reports no additional respiratory complaints, Denies cough and Denies dyspnea <Yanet Benton NP - Last Filed: 10/26/21 17:34> Gastrointestinal: Gastrointestinal: Reports no additional gastrointestinal complaints, Denies abdominal pain, Denies diarrhea, Denies nausea and Denies vomiting <Yanet Benton NP - Last Filed: 10/26/21 17:34> Genitourinary: Genitourinary: Reports no additional female genitourinary complaints and Denies urinary incontinence <Yanet Benton NP - Last Filed: 10/26/21 17:34> Musculoskeletal: Musculoskeletal: Reports no additional musculoskeletal complaints, Denies back pain, Denies arthralgias, Denies joint swelling, Denies neck pain, Denies numbness, Reports radiating pain into limb and Denies tingling <Yanet Benton NP - Last Filed: 10/26/21 17:34> Integumentary/Breasts: Skin/Breast: Reports system reviewed and no additional complaints, except as docu and Denies rash <Yanet Benton NP - Last Filed: 10/26/21 17:34> Neurologic: Reports system reviewed and no additional complaints, except as documented, Denies Abnormal speech present, Denies dizziness, Denies headache(s), Denies numbness, Denies tingling and Denies weakness <Yanet Benton NP - Last Filed: 10/26/21 17:34> PMF Past Medical History Attestation statement: The following information was validated with the patient. <Yanet Benton NP - Last Filed: 10/26/21 17:34> Source: old records reviewed and nursing notes reviewed <Yanet Benton NP - Last Filed: 10/26/21 17:34> Medical History: Medical History Diabetes type 2, controlled High cholesterol <Yanet Benton NP - Last Filed: 10/26/21 17:34> Surgical History: Surgical History H/O section H/O: hysterectomy <Yanet Benton NP - Last Filed: 10/26/21 17:34> Social History Social History: Social History Alcohol intake: former Patient Tobacco Use Status: Never used Tobacco Advance Directives: Yes Advance Directives Information Provided: Yes Advance Directives on File: No Current occupation: [employer] <Yanet Benton NP - Last Filed: 10/26/21 17:34> Physical Exam Vital Signs: Vital Signs: Last Vital Signs Temp 97.9 F 10/26/21 16:10 Pulse 73 10/27/21 02:27 Resp 17 10/27/21 02:27 BP 138/71 10/27/21 02:27 Pulse Ox 99 10/27/21 02:27 O2 Del Method 10/27/21 02:27 BMI result Body Mass Index 29.0 <Yanet Benton NP - Last Filed: 10/26/21 17:34> Vital Signs: Last Vital Signs Temp 97.9 F 10/26/21 16:10 Pulse 73 10/27/21 02:27 Resp 17 10/27/21 02:27 BP 138/71 10/27/21 02:27 Pulse Ox 99 10/27/21 02:27 O2 Del Method 10/27/21 02:27 BMI result Body Mass Index 29.0 <CECILY Graham - Last Filed: 10/27/21 04:14> Const: General: cooperative, healthy appearing, comfortable and no acute distress <Yanet Benton NP - Last Filed: 10/26/21 17:34> Orientation/consciousness: patient oriented x3 <Yanet Benton NP - Last Filed: 10/26/21 17:34> Limitations: no limitations <Yanet Benton NP - Last Filed: 10/26/21 17:3 4> HEENT: Head: Yes normal to inspection <Yanet Benton NP - Last Filed: 10/26/21 17:34> Ears: hearing grossly normal bilaterally <Yanet Benton NP - Last Filed: 10/26/21 17:34> General nose exam: Normal external nose present <Yanet Benton NP - Last Filed: 10/26/21 17:34> Face and sinus: Yes normal facial exam <Yanet Benton NP - Last Filed: 10/26/21 17:34> Mouth: Normal oral and palatal mucosa present <Yanet Benton NP - Last Filed: 10/26/21 17:34> Throat: Yes posterior oropharynx normal <Yanet Benton ORAL PATHOLOGIST - Last Filed: 10/26/21 17:34> Eyes: General: appearance normal, both eyes and all related structures <Yanet Benton NP - Last Filed: 10/26/21 17:34> Pupils: Equal, round and reactive pupils present <Yanet Benton NP - Last Filed: 10/26/21 17:34> Neck: Neck: Yes normal visual inspection <Yanet Benton NP - Last Filed: 10/26/21 17:34> Chest: Chest palpation & inspection: normal inspection of the chest <Yanet Benton NP - Last Filed: 10/26/21 17:34> Resp: Effort & Inspection: normal respiratory effort <Yanet Benton NP - Last Filed: 10/26/21 17:34> Auscultation: clear to auscultation bilaterally <Yanet Benton NP - Last Filed: 10/26/21 17:34> Cardio: Rate: regular rate <Yanet Benton NP - Last Filed: 10/26/21 17:34> Rhythm: regular rhythm <Yanet Benton NP - Last Filed: 10/26/21 17:34> Peripheral pulses: Peripheral pulses 2+ throughout <Yanet Benton NP - Last Filed: 10/26/21 17:34> GI: Inspection: Yes normal to inspection <Yanet Benton NP - Last Filed: 10/26/21 17:34> Palpation (GI): Soft to palpation and nontender <Yanet Benton NP - Last Filed: 10/26/21 17:34> Auscultation: normal bowel sounds <Yanet Benton NP - Last Filed: 10/26/21 17:34> : General: Yes no CVA tenderness <Yanet Benton NP - Last Filed: 10/26/21 17:34> Back/Spine/Pelvis: Back: no CVA tenderness <Yanet Benton NP - Last Filed: 10/26/21 17:34> Thoracic/Lumbar Spine: thoracic and lumbar spine normal to inspection <Yanet Benton ORAL PATHOLOGIST - Last Filed: 10/26/21 17:34> Skin: General skin exam: no rashes or lesions noted <Yanet Benton NP - Last Filed: 10/26/21 17:34> Neuro: General: patient oriented x3, no focal motor deficits and normal sensation to monofilament <Yanet Benton NP - Last Filed: 10/26/21 17:34> Cranial nerves: Yes CN's II-XII intact bilaterally, Yes Equal, round and reactive pupils present, Yes Bilaterally intact EOM present, Yes Nystagmus not present, Yes Normal facial strength present and Yes Midline tongue present <Yanet Benton NP - Last Filed: 10/26/21 17:34> Cognition (Neuro): normal cognition <Yanet Benton NP - Last Filed: 10/26/21 17:34> Speech: No Abnormal speech present <Yanet Benton NP - Last Filed: 10/26/21 17:34> Motor exam (neuro): 5/5 motor strength present throughout <Yanet Benton ORAL PATHOLOGIST - Last Filed: 10/26/21 17:34> Sensory Exam: Normal double simultaneous stimulation for sensation <Yanet Benton NP - Last Filed: 10/26/21 17:34> Deep tendon reflexes (DTR's): Right patellar reflex intensity grade: 2+ and Left patellar reflex intensity grade: 2+ <Yanet Benton NP - Last Filed: 10/26/21 17:34> Extrem: Other: There is tenderness over the right buttocks and over the right SI joint on compression there is also tenderness over the right lateral hip and down into the soft tissue of the right thigh. There is a muscle spasm with movement of the extremity. There is full range of motion although it is painful. Neurovascularly intact distally. <Yanet Benton NP - Last Filed: 10/26/21 17:34> General: Yes normal to inspection, Yes no pedal edema and Yes no calf tenderness <Yanet Benton NP - Last Filed: 10/26/21 17:34> Course Course Course Narrative: Labs are unremarkable. CT shows some arthritis in the hip but no occult fracture. Patient has continued pain. Will give additional analgesia. If having persistent pain and difficulty with ambulation will consider involving case management and obtain a physical therapy consultation <Yanet Benton NP - Last Filed: 10/26/21 17:34> Reevaluation(s) Reevaluation #1: 1220-physical therapy saw patient and recommended short-term rehab. She is still having some pain and so I do believe of several days of medication and physical therapy may help with her discomfort. Will involve Case Management <Yanet Benton NP - Last Filed: 10/26/21 17:34> Reevaluation #2: 1630-medications reconciled. Patient placed in physician observation pending placement short-term rehab. <Yanet Benton NP - Last Filed: 10/26/21 17:34> Reevaluation #3: Sign out to Kadie TONY pending above. <Yanet Benton NP - Last Filed: 10/26/21 17:34> Time: 17:30 <Yanet Benton NP - Last Filed: 10/26/21 17:34> Additional Reevaluation(s): Will be going to [facility] tomorrow moring 10 am. <CECILY Graham - Last Filed: 10/27/21 04:14> MDM - Extremity Injury (Lower) MDM Narrative Medical decision making narrative: 66-year-old female here with 2 weeks of right-sided hip and lower back/buttocks pain with the a remote history of trauma unrelieved with home tramadol, Flexeril. No neurological deficits or red flag symptoms. Patient quite uncomfortable on exam. Due to age with history of trauma will check CT hip as patient had recent x-rays which showed no acute finding and is reporting difficulty with weight-bearing. Will also obtain baseline labs, UA. Will provide analgesia and reassess Consider sciatica, fracture -low concern for epidural abscess with no reports of fever, neurological deficits or red flag symptoms reported, no history of IV drug abuse or previous back surgeries. Low concern for cauda equina <Yanet Benton NP - Last Filed: 10/26/21 17:34> Medical Records Attestation: I reviewed the patient's medical records. <Yanet Benton NP - Last Filed: 10/26/21 17:34> Lab Data Attestation: I reviewed the patient's lab results. <Yanet Benton NP - Last Filed: 10/26/21 17:34> Result diagrams: : 10/26/21 09:45 10/26/21 09:45 <Yanet Benton NP - Last Filed: 10/26/21 17:34> Labs: Lab Results 10/26/21 10/26/21 10/26/21 Range/Units 09:45 09:45 12:34 WBC 4.2 L (4.8-10.8) X10*3/uL RBC 4.28 (4.20-5.50) X10*6/uL Hgb 13.4 (12.0-16.0) g/dl Hct 41.2 (37.0-47.0) % MCV 96.3 (80.0-98.0) fL MCH 31.3 (27.0-33.0) pg MCHC 32.5 (31.0-35.0) g/dl RDW 11.8 (11.0-16.0) % Plt Count 259 (160-400) X10*3/uL MPV 9.5 (9.4-12.3) fL Immature Gran % (Auto) 0.5 H (0.0-0.4) % Neut % (Auto) 62.0 (45-73) % Lymph % (Auto) 22.4 (20-40) % [place] % (Auto) 10.5 (2-11) % Eos % (Auto) 4.1 H (0-4) % Baso % (Auto) 0.5 (0-2) % Lymph # (Auto) 0.9 L (1.2-4.9) X10*3/uL [place] # (Auto) 0.4 (0.1-1.2) X10*3/uL Eos # (Auto) 0.2 (0.0-0.4) X10*3/uL Baso # (Auto) 0.0 (0.0-0.2) X10*3/uL Abs Immat Gran (auto) 0.02 (0.00-0.03) X10*3/uL Absolute Neuts (auto) 2.6 (2.0-8.3) x10*3/uL Absolute Nucleated RBC 0.000 (0.0-0.012) X10*3/uL Nucleated RBC % (auto) 0.0 (0.0-0.2) /100WBC Sodium 142 (135-145) mmol/L Potassium 4.9 (3.3-5.1) mmol/L Chloride 107 (96-108) mmol/L Carbon Dioxide 28 (22-29) mmol/L Anion Gap 12 (12-20) BUN 14 (9-16) mg/dL Creatinine 0.81 (0.5-1.4) mg/dL Estim Creat Clear Calc 55.3 Estimated GFR > 60 Random Glucose 168 H (60-115) mg/dL Calcium 9.1 (8.4-10.2) mg/dL Urine Color Urine Appearance Urine pH (5.0-8.0) Ur Specific [place] (1.005-1.025) Urine Protein (NEG-TRACE) MG/DL Urine Glucose (UA) (NEG) MG/DL Urine Ketones (NEG) MG/DL Urine Blood (NEG) Urine Nitrite (NEG) Ur Leukocyte Esterase (NEG) COVID-19 (ALE) Negative (Negative) COVID-19 Clin Com See Note Influenza Type A (PCR) (Negative) Influenza Type B (PCR) (Negative) RSV RNA Qual (PCR) (Negative) SARS-CoV-2 RNA (RT-PCR) (Negative) 10/26/21 10/26/21 Range/Units 13:04 17:07 WBC (4.8-10.8) X10*3/uL RBC (4.20-5.50) X10*6/uL Hgb (12.0-16.0) g/dl Hct (37.0-47.0) % MCV (80.0-98.0) fL MCH (27.0-33.0) pg MCHC (31.0-35.0) g/dl RDW (11.0-16.0) % Plt Count (160-400) X10*3/uL MPV (9.4-12.3) fL Immature Gran % (Auto) (0.0-0.4) % Neut % (Auto) (45-73) % Lymph % (Auto) (20-40) % [place] % (Auto) (2-11) % Eos % (Auto) (0-4) % Baso % (Auto) (0-2) % Lymph # (Auto) (1.2-4.9) X10*3/uL [place] # (Auto) (0.1-1.2) X10*3/uL Eos # (Auto) (0.0-0.4) X10*3/uL Baso # (Auto) (0.0-0.2) X10*3/uL Abs Immat Gran (auto) (0.00-0.03) X10*3/uL Absolute Neuts (auto) (2.0-8.3) x10*3/uL Absolute Nucleated RBC (0.0-0.012) X10*3/uL Nucleated RBC % (auto) (0.0-0.2) /100WBC Sodium (135-145) mmol/L Potassium (3.3-5.1) mmol/L Chloride (96-108) mmol/L Carbon Dioxide (22-29) mmol/L Anion Gap (12-20) BUN (9-16) mg/dL Creatinine (0.5-1.4) mg/dL Estim Creat Clear Calc Estimated GFR Random Glucose (60-115) mg/dL Calcium (8.4-10.2) mg/dL Urine Color YELLOW Urine Appearance CLEAR Urine pH 6.5 (5.0-8.0) Ur Specific [place] <= 1.005 (1.005-1.025) Urine Protein NEG (NEG-TRACE) MG/DL Urine Glucose (UA) NEG (NEG) MG/DL Urine Ketones NEG (NEG) MG/DL Urine Blood NEG (NEG) Urine Nitrite NEG (NEG) Ur Leukocyte Esterase NEG (NEG) COVID-19 (ALE) (Negative) COVID-19 Clin Com Influenza Type A (PCR) NEGATIVE (Negative) Influenza Type B (PCR) NEGATIVE (Negative) RSV RNA Qual (PCR) NEGATIVE (Negative) SARS-CoV-2 RNA (RT-PCR) NEGATIVE (Negative) <Yanet Benton, ORAL PATHOLOGIST - Last Filed: 10/26/21 17:34> Lab Results 10/26/21 10/26/21 10/26/21 Range/Units 09:45 09:45 12:34 WBC 4.2 L (4.8-10.8) X10*3/uL RBC 4.28 (4.20-5.50) X10*6/uL Hgb 13.4 (12.0-16.0) g/dl Hct 41.2 (37.0-47.0) % MCV 96.3 (80.0-98.0) fL MCH 31.3 (27.0-33.0) pg MCHC 32.5 (31.0-35.0) g/dl RDW 11.8 (11.0-16.0) % Plt Count 259 (160-400) X10*3/uL MPV 9.5 (9.4-12.3) fL Immature Gran % (Auto) 0.5 H (0.0-0.4) % Neut % (Auto) 62.0 (45-73) % Lymph % (Auto) 22.4 (20-40) % [place] % (Auto) 10.5 (2-11) % Eos % (Auto) 4.1 H (0-4) % Baso % (Auto) 0.5 (0-2) % Lymph # (Auto) 0.9 L (1.2-4.9) X10*3/uL [place] # (Auto) 0.4 (0.1-1.2) X10*3/uL Eos # (Auto) 0.2 (0.0-0.4) X10*3/uL Baso # (Auto) 0.0 (0.0-0.2) X10*3/uL Abs Immat Gran (auto) 0.02 (0.00-0.03) X10*3/uL Absolute Neuts (auto) 2.6 (2.0-8.3) x10*3/uL Absolute Nucleated RBC 0.000 (0.0-0.012) X10*3/uL Nucleated RBC % (auto) 0.0 (0.0-0.2) /100WBC Sodium 142 (135-145) mmol/L Potassium 4.9 (3.3-5.1) mmol/L Chloride 107 (96-108) mmol/L Carbon Dioxide 28 (22-29) mmol/L Anion Gap 12 (12-20) BUN 14 (9-16) mg/dL Creatinine 0.81 (0.5-1.4) mg/dL Estim Creat Clear Calc 55.3 Estimated GFR > 60 Random Glucose 168 H (60-115) mg/dL Calcium 9.1 (8.4-10.2) mg/dL Urine Color Urine Appearance Urine pH (5.0-8.0) Ur Specific [place] (1.005-1.025) Urine Protein (NEG-TRACE) MG/DL Urine Glucose (UA) (NEG) MG/DL Urine Ketones (NEG) MG/DL Urine Blood (NEG) Urine Nitrite (NEG) Ur Leukocyte Esterase (NEG) COVID-19 (ALE) Negative (Negative) COVID-19 Clin Com See Note Influenza Type A (PCR) (Negative) Influenza Type B (PCR) (Negative) RSV RNA Qual (PCR) (Negative) SARS-CoV-2 RNA (RT-PCR) (Negative) 10/26/21 10/26/21 Range/Units 13:04 17:07 WBC (4.8-10.8) X10*3/uL RBC (4.20-5.50) X10*6/uL Hgb (12.0-16.0) g/dl Hct (37.0-47.0) % MCV (80.0-98.0) fL MCH (27.0-33.0) pg MCHC (31.0-35.0) g/dl RDW (11.0-16.0) % Plt Count (160-400) X10*3/uL MPV (9.4-12.3) fL Immature Gran % (Auto) (0.0-0.4) % Neut % (Auto) (45-73) % Lymph % (Auto) (20-40) % [place] % (Auto) (2-11) % Eos % (Auto) (0-4) % Baso % (Auto) (0-2) % Lymph # (Auto) (1.2-4.9) X10*3/uL [place] # (Auto) (0.1-1.2) X10*3/uL Eos # (Auto) (0.0-0.4) X10*3/uL Baso # (Auto) (0.0-0.2) X10*3/uL Abs Immat Gran (auto) (0.00-0.03) X10*3/uL Absolute Neuts (auto) (2.0-8.3) x10*3/uL Absolute Nucleated RBC (0.0-0.012) X10*3/uL Nucleated RBC % (auto) (0.0-0.2) /100WBC Sodium (135-145) mmol/L Potassium (3.3-5.1) mmol/L Chloride (96-108) mmol/L Carbon Dioxide (22-29) mmol/L Anion Gap (12-20) BUN (9-16) mg/dL Creatinine (0.5-1.4) mg/dL Estim Creat Clear Calc Estimated GFR Random Glucose (60-115) mg/dL Calcium (8.4-10.2) mg/dL Urine Color YELLOW Urine Appearance CLEAR Urine pH 6.5 (5.0-8.0) Ur Specific [place] <= 1.005 (1.005-1.025) Urine Protein NEG (NEG-TRACE) MG/DL Urine Glucose (UA) NEG (NEG) MG/DL Urine Ketones NEG (NEG) MG/DL Urine Blood NEG (NEG) Urine Nitrite NEG (NEG) Ur Leukocyte Esterase NEG (NEG) COVID-19 (ALE) (Negative) COVID-19 Clin Com Influenza Type A (PCR) NEGATIVE (Negative) Influenza Type B (PCR) NEGATIVE (Negative) RSV RNA Qual (PCR) NEGATIVE (Negative) SARS-CoV-2 RNA (RT-PCR) NEGATIVE (Negative) <CECILY Graham - Last Filed: 10/27/21 04:14> Imaging Data hip ct: Attestation: I personally reviewed and interpreted this imaging study as follows: <Yanet Benton NP - Last Filed: 10/26/21 17:34> Radiologist's impression: FINDINGS: No fracture or malalignment. Bone mineralization appears normal. Mild axial joint space narrowing with tiny marginal osteophytes. Imaged portion of the innominate bone is intact. Imaged portion of the SI joints and pubic symphysis are normal. No evidence of avascular necrosis. The joint effusions. No fluid collections are identified around the right hip. Musculature is unremarkable. No appreciable fatty replacement or focal muscle swelling. Imaged intrapelvic soft tissues are normal. No adenopathy. No intraperitoneal free fluid.? CT/CT hip RT wo con IMPRESSION: No acute osseous abnormalities at the right hip. Minimal osteoarthritis. Consider follow-up MRI of the pelvis on a nonemergent basis if? there is persistent difficulty weightbearing or marked persistent pain. <Yanet Benton NP - Last Filed: 10/26/21 17:34> Discharge Plan Discharge Clinical Impression: Sciatica <Yanet Benton NP - Last Filed: 10/26/21 17:34> Patient Disposition: er [facility] <Yanet Benton NP - Last Filed: 10/26/21 17:34> Prescriptions: New oxycodone 5 mg tablet 5 mg PO Q8H PRN (Reason: pain) Qty: 8 0RF Rx Instructions: Partial Fill upon patient request. No Action cyclobenzaprine 10 mg tablet 10 mg PO Q8H PRN (Reason: Muscle Spasm) Qty: 20 0RF atorvastatin 40 mg tablet 1 tab PO DAILY ibuprofen 800 mg tablet 1 tab PO TID PRN (Reason: Pain) melatonin 3 mg tablet 1 tab PO BEDTIME baclofen 20 mg tablet 1 tab PO TID tramadol 50 mg tablet 50 mg PO Q6H PRN (Reason: pain) Qty: 20 0RF amlodipine 2.5 mg tablet 2.5 mg PO DAILY <Yanet Benton NP - Last Filed: 10/26/21 17:34>
[2021-10-26] MEDS: Ketorolac Tromethamine 30 MG/ML VIAL IVPUSH (09:50)
[2021-10-26] MEDS: ondansetron HCL 4 MG/2 ML VIAL IVPUSH (09:50)
[2021-10-26 09:51] LABS: MANUAL DIFF FLAG NO
[2021-10-26] MEDS: diazePAM 2 MG TABLET PO ×2 (09:52→11:39)
[2021-10-26] MEDS: Morphine Sulfate 4 MG/ML CARTRIDGE IVPUSH (09:52)
[2021-10-26 09:53] LABS: Basophils Percent Auto 0.5 % (0-2); Eosinophils Absolute Auto 0.2 X10*3/uL (0.0-0.4); Eosinophils Percent Auto 4.1 % (0-4); Hematocrit 41.2 % (37.0-47.0); Hemoglobin 13.4 g/dl (12.0-16.0); Imm Gran Abs Auto 0.02 X10*3/uL (0.00-0.03); Imm Gran Pct Auto 0.5 % (0.0-0.4); Lymphocytes Absolute Auto 0.9 X10*3/uL (1.2-4.9); Lymphocytes Percent Auto 22.4 % (20-40); Mean Corpuscular HGB Conc 32.5 g/dl (31.0-35.0); Mean Corpuscular Hemoglobin 31.3 pg (27.0-33.0); Mean Corpuscular Volume 96.3 fL (80.0-98.0); Mean Platelet Volume 9.5 fL (9.4-12.3); Monocytes Absolute Auto 0.4 X10*3/uL (0.1-1.2); Monocytes Percent Auto 10.5 % (2-11); Neutrophils Absolute Auto 2.6 x10*3/uL (2.0-8.3); Platelet Count 259 X10*3/uL (160-400); Red Blood Count 4.28 X10*6/uL (4.20-5.50); Red Cell Distribution Width 11.8 % (11.0-16.0); White Blood Count 4.2 X10*3/uL (4.8-10.8)
[2021-10-26 10:06] LABS: Anion Gap 12 (12-20); Blood Urea Nitrogen 14 mg/dL (9-16); Calcium 9.1 mg/dL (8.4-10.2); Carbon Dioxide 28 mmol/L (22-29); Chloride 107 mmol/L (96-108); Creatinine Clr Calc Pharmacy 55.3; Estimated Glomerular Filt Rate > 60; Glucose Random 168 mg/dL (60-115); Potassium 4.9 mmol/L (3.3-5.1); Sodium 142 mmol/L (135-145)
[2021-10-26 10:58] VITALS: BP 156/78; PULSE 59; RESP 12; O2SAT 97
[2021-10-26] MEDS: Acetaminophen 325 MG TABLET 975 MG PO (11:39)
[2021-10-26] MEDS: dexAMETHasone sod phosphate 10 MG/ML VIAL IVPUSH (11:40)
[2021-10-26 12:09] VITALS: BP 156/78; PULSE 59; O2SAT 97
--- NOTE | 2021-10-26 12:11 | PC.NURSE ---
Pt seen by physical therapy, will recommend rehab as pt reports pain persist. Medicated as charted with minimal relief.
[2021-10-26 12:52] VITALS: BP 135/76; PULSE 60; RESP 12; O2SAT 96
[2021-10-26 12:58] LABS: COVID-19 Test Negative (Negative)
[2021-10-26] MEDS: oxyCODONE HCl Immed Release 5 MG TABLET PO (13:06)
[2021-10-26 13:12] LABS: Appearance Urine CLEAR; Color Urine YELLOW; Glucose Urine UA NEG (NEG); Leukocyte Esterase Urine NEG (NEG); Nitrite Urine NEG (NEG); PH 6.5 (5.0-8.0); Specific Gravity - Urine <= 1.005 (1.005-1.025); Urine Blood NEG (NEG); Urine Ketones NEG (NEG); Urine Protein NEG (NEG-TRACE)
[2021-10-26 15:30] VITALS: BP 138/71; PULSE 66; RESP 12; TEMP 36.6; O2SAT 97
--- NOTE | 2021-10-26 16:07 | PC.NURSE ---
patient assessed with use of cook room supervisor . a/o x4 . na . heart beta regular at 65 beats per minute . lungs clear . skin pink warm and dry . abdomen soft , non tender and positive bowel sounds in all quadrants . patient reports 8/1-0 lower back pain in right side that radiates down to feet . provider aware . patient repositioned in bed . given fluids and crackers . patient aware of plan of care .
[2021-10-26 16:10] VITALS: BP 138/71; PULSE 64; RESP 16; TEMP 36.6; O2SAT 96
[2021-10-26 17:57] LABS: Influenza A PCR NEGATIVE (Negative); Influenza B PCR NEGATIVE (Negative); Resp Syncy Virus RNA Qual PCR NEGATIVE (Negative); SARS COV2 PCR INHOUSE NEGATIVE (Negative)
--- NOTE | 2021-10-26 18:04 | MHC.CM.ED ---
Addendum entered by Mehreen Neves 10/26/21 20:02: Covid PCR negative. Facility will accept at 10am 8/6. Transportation booked for 10 am. Pt and son aware. RN and provider aware. Med Nec and ED worksheet on chart. Addendum entered by Mehreen Neves 10/26/21 18:08: CM spoke with son, Conner. Conner verifies that his mother lives alone and has no services, although the family is considering some help at home for her. [employer]a x3. Uses a walker. Son is also agreeable to STR. [facility] offered a bed. Will accept in the morning. Both Conner and pt are agreeable to bed. Will reach out to facility in the morning as to time for transport, as they did not respond in [employer]. HCP copies left with patient. Uploaded into [employer]. Original Note: CM met with patient with medical numerical control operator, as pt is Nepali speaking. Reviewed PT recommendation for STR. Reviewed just what STR is. Pt is agreeable to STR. HCP reviewed, completed and signed. HCP#1/son Conner Tejeda ([phone]) and HCP#2/daughter in law([phone]). Moderna x3. Pt tells CM that her son will be in to visit. Will speak with son to verify information. CM to follow for d/c needs.
[2021-10-26] MEDS: Baclofen 20 MG TABLET PO (22:10)
[2021-10-26] MEDS: Melatonin 3 MG TABLET PO (22:10)
--- NOTE | 2021-10-26 22:12 | PC.NURSE ---
medicated per May. Notified RN
--- NOTE | 2021-10-27 00:15 | PC.NURSE ---
pt sleeping comfortably on stretcher. no complaints. no respiratory distress. call [facility] reach.
[2021-10-27 02:27] VITALS: BP 138/71; PULSE 73; RESP 17; O2SAT 99
[2021-10-27 07:49] VITALS: BP 143/72; PULSE 65; RESP 15; TEMP 36.6; O2SAT 100
[2021-10-27] MEDS: Baclofen 20 MG TABLET PO (10:37)
[2021-10-27] MEDS: amLODIPine Besylate 2.5 MG TABLET PO (10:37)
[2021-10-27 12:31] VITALS: BP 142/69; PULSE 63; RESP 16; TEMP 36.7; O2SAT 97
== END 2021-10-27 16:10 | disposition skilled nursing facility (03) ==
PROVIDERS: Nurse Practitioner Family; Emergency Provider Emergency Medicine; PCP Internal Medicine
DX: M54.41 Lumbago with sciatica, right side (principal); M25.551 Pain in right hip; Z79.899 Other long term (current) drug therapy; Z20.822 Contact with and (suspected) exposure to COVID-19
CPT/HCPCS: 0241U; 36415; 73700; 80048; 81003; 85025; 87635; 96374; 96375; 97162; 99284; 99285; J1100; J1885; J2270; J2405

== ENCOUNTER 2021-11-19 13:01 | Outpatient (REF) | payer MEDICARE, MEDICAID, SELFPAY ==
--- NOTE | ~2021-11-19 | MR_ITS ---
EXAMINATION: MR LUMBAR SPINE WITHOUT CONTRAST CLINICAL INFORMATION: Low back pain. Right-sided sciatica. COMPARISON: CT scan of the abdomen and pelvis 05/28/2021. TECHNIQUE: MRI of the lumbar spine was obtained using routine sequences without contrast. FINDINGS: Alignment is normal. Vertebral heights are preserved. No acute bone marrow signal changes. There is slight loss of intervertebral disc height and T2 signal intensity at multiple levels related to disc degeneration. The tip of the conus medullaris is located at T12-L1. No mass effect on the conus. Visualized distal cord signal intensity is normal. At L1-L2, L2-L3, and L3-L4 the annular contours are normal. No canal or neuroforaminal compromise at these 3 levels. At L4-L5 there is a broad central extrusion with 0.4 cm caudal subligamentous extension of extruded disc material causing indentation of the thecal sac and moderate canal stenosis. There is abutment and possible compression of the right traversing L5 nerve roots. No foraminal nerve root compression. At L5-S1 there is a slightly bulging disc. Bilateral facet degenerative change. No canal stenosis. No mass effect on the traversing or foraminal nerve roots. Limited visualization the retroperitoneal anatomy reveals no abnormal finding. Psoas and paraspinal muscle groups are symmetric. 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 Otherwise no canal or neuroforaminal compromise elsewhere within the lumbar spine.
== END 2021-11-19 13:02 | disposition home or self-care (01) ==
LOC: HO.MRI 13:01
PROVIDERS: Visit Provider Internal Medicine
DX: M54.41 Lumbago with sciatica, right side (principal)
CPT/HCPCS: 72148

== ENCOUNTER → 2022-01-15 12:57 | Outpatient (BNVA) | payer MEDICARE, MEDICAID, SELFPAY | PROVIDERS: PCP Internal Medicine; Visit Provider Nurse Practitioner | DX: K59.04 Chronic idiopathic constipation (principal); K21.9 Gastro-esophageal reflux disease without esophagitis; R14.0 Abdominal distension (gaseous) | CPT/HCPCS: 99212 ==

== ENCOUNTER 2022-02-13 03:22 | Emergency (ER) | payer MEDICARE, MEDICAID, SELFPAY ==
--- NOTE | ~2022-02-13 | XR_ITS ---
EXAMINATION: XR CHEST CLINICAL INFORMATION: Cough. Chest pain. COMPARISON: 05/28/2021 TECHNIQUE: Frontal view of the chest was obtained. FINDINGS: The lungs are well expanded. There is no focal consolidation, edema, or effusion. No pneumothorax. The cardiomediastinal silhouette is within normal limits. No acute osseous abnormality. XR/XR chest 1V IMPRESSION: Clear lungs.
--- NOTE | ~2022-02-13 | CT_ITS ---
EXAMINATION: CT ABDOMEN AND PELVIS WITHOUT CONTRAST CLINICAL INFORMATION: Right lower quadrant pain COMPARISON: 05/28/2021 TECHNIQUE: Multidetector volumetric imaging was performed from the superior aspect of the liver through the pubic symphysis. Sagittal and coronal reformatted images were obtained on the technologist's workstation. This CT examination was performed using dose optimization techniques as appropriate, variously including the following: *Automated exposure control *Adjustment of mA and/or kV according to patient size (this includes techniques or standardized protocols for targeted exams where dose is matched to indication/reason for exam; i.e. extremities or head) *Use of iterative reconstruction technique DLP: 553 mGy-cm FINDINGS: LUNG BASES: The visualized lung bases are unremarkable. LIVER, GALLBLADDER, AND BILIARY TREE: The liver is normal in size, shape, and attenuation. No focal hepatic lesion or biliary ductal dilatation is present. The gallbladder is unremarkable with no evidence of radiopaque gallstones, gallbladder wall thickening, or obvious pericholecystic inflammatory changes. PANCREAS: Unremarkable. SPLEEN: Unremarkable. ADRENAL GLANDS: Unremarkable. KIDNEYS AND URETERS: The kidneys are normal in size, shape, and attenuation. No hydronephrosis, hydroureter, or calculi seen. No perinephric stranding. BLADDER: Unremarkable. GASTROINTESTINAL TRACT: The small and large bowel are unremarkable. The appendix is unremarkable. ABDOMINAL WALL: No significant hernia is appreciated. LYMPH NODES: Normal. VASCULAR: Normal caliber aorta with mild atherosclerotic calcification. PELVIC VISCERA: Uterus not seen. No adnexal mass. OSSEOUS STRUCTURES: No acute or suspicious osseous abnormality. Mild degenerative changes of the spine. Vacuum disc phenomenon at the lower lumbar spine. CT/CT abdomen pelvis wo IV con IMPRESSION: No acute findings in the abdomen or pelvis. No inflammatory changes. Normal appendix. Fleischner guidelines were followed.
[2022-02-13 03:25] VITALS: BP 145/84; PULSE 76; O2SAT 98
--- NOTE | 2022-02-13 03:31 | ECG_ITS ---
Test Reason : CP Blood Pressure : / mmHG Vent. Rate : 074 BPM Atrial Rate : 074 BPM P-R Int : 134 ms QRS Dur : 076 ms QT Int : 390 ms P-R-T Axes : 041 030 029 degrees QTc Int : 432 ms Normal sinus rhythm Nonspecific T wave abnormality Anterior leads Nonspecific ST abnormality Inferior leads Abnormal ECG When compared with ECG of 21-OCT-2021 13:24, ST more elevated in Inferior leads Clinical Correlation Advised Referred By: Jessica Wilson Electronically Signed By:CHUNG HUFFMAN MD
[2022-02-13 03:32] VITALS: BP 136/70; PULSE 78; RESP 18; TEMP 36.7; O2SAT 98; BMI 29.0
--- NOTE | 2022-02-13 03:34 | ED.GENADULT ---
HPI - General Adult General Chief complaint: Upper Respiratory Symptoms Stated complaint: cough,abd pain Time Seen by Provider: 02/13/22 03:25 Source: patient and EMS Mode of arrival: EMS Limitations: no limitations History of Present Illness HPI narrative: Patient comes to the emergency room complaining of bilateral chest pain and bilateral back pain, secondary from coughing. Patient states she was diagnosed with a URI about a week ago, given amoxicillin, ibuprofen, Sudafed. Patient states that the coughing keeps getting worse, dry, no fever chills, no shortness of breath. Patient states that now she also has right lower quadrant pain, seems to be worse when she coughs. Patient denies nausea vomiting or diarrhea. Related Data Home Medications Medication Instructions Recorded Confirmed atorvastatin 40 mg tablet 1 tab PO DAILY 10/26/21 10/26/21 baclofen 20 mg tablet 1 tab PO TID 10/26/21 10/26/21 ibuprofen 800 mg tablet 1 tab PO TID PRN Pain 10/26/21 10/26/21 melatonin 3 mg tablet 1 tab PO BEDTIME 10/26/21 10/26/21 alendronate 70 mg tablet 70 mg PO QWEEK 01/15/22 blood sugar diagnostic (FreeStyle #10 ea 01/15/22 Lite Strips) cetirizine 10 mg tablet 10 mg PO DAILY 01/15/22 diclofenac sodium 1 % topical gel 2 g topical QID muscle pain 01/15/22 lancets 33 gauge (TRUEplus Lancets) #100 ea 01/15/22 Previous Rx's Medication Instructions Recorded famotidine 40 mg tablet (Pepcid) 40 mg PO BEDTIME #30 tabs 01/15/22 polyethylene glycol 3350 17 17 g PO DAILY 30 days #510 grams 01/15/22 gram/dose oral powder (Miralax) sennosides 8.6 mg tablet (senna) 17.2 mg PO BEDTIME constipation 01/15/22 #60 tabs simethicone 180 mg capsule 180 mg PO BID 30 days #60 caps 01/15/22 benzocaine 15 mg lozenges 15 mg mucous membrane Q3H PRN sore 02/13/22 throat #18 ea benzonatate 100 mg capsule 100 mg PO TID PRN cough #10 caps 02/13/22 Allergies Allergy/AdvReac Type Severity Reaction Status Date / Time tramadol Allergy Severe Hallucinati Verified 01/15/22 13:03 ons morphine Allergy Intermediate Hallucinati Verified 01/15/22 13:03 ons Review of Systems Review of Systems: Constitutional : No Weight loss, No Fever, No Chills, No Night Sweats, No Fatigue, No Malaise ENT/Mouth : No Hearing loss, No Ear Pain, No Nasal Congestion, No Sinus Pain, No Hoarseness, Complaining ofsore throat, No Rhinorrhea, No Swallowing Difficulty Eyes: No Eye Pain, No Swelling, No Redness, No Foreign Body, No Discharge, No Vision Changes Cardiovascular : complaining of bilateral Chest Pain with coughing, No SOB, No Dyspnea on Exertion, No Orthopnea, No Edema, No Palpitations Respiratory : complaining of dryCough, No Sputum, No Wheezing, No Smoke Exposure, No Dyspnea Gastrointestinal : No Nausea, No Vomiting, No Diarrhea, No Constipation, No abdominal Pain, No Hematochezia, No Melena Genitourinary : no irregular bleeding, No Dysuria, No Urinary Frequency, No Hematuria, No Urinary Incontinence, No Urgency, No Flank Pain, No Urinary Flow Changes, No Hesitancy Musculoskeletal : No joint pain, No Myalgias, No Joint Swelling Skin : No Skin Lesions, No rash Neuro : No Weakness, No Numbness, No Paresthesias, No Loss of Consciousness, No Dizziness, No Headache Psych : No Anxiety/Panic, No Depression, No SI/HI/AH/VH, No Social Issues, Heme/Lymph: No Bruising, No Bleeding,No Lymphadenopathy Endocrine : No Polyuria, No Polydipsia, No Temperature Intolerance [facility] Past Medical History Medical History Diabetes type 2, controlled High cholesterol Surgical History H/O section H/O colonoscopy H/O: hysterectomy Social History Social History Alcohol intake: former Patient Tobacco Use Status: Never used Tobacco Advance Directives: Yes Advance Directives on File: Yes Advance Directives Date on File: 11/15/21 Current occupation: [employer] Physical Exam ED Vital Signs: Vital Signs - 24 hr 02/13/22 03:32 Temperature 98.1 F Pulse Rate 78 Respiratory Rate 18 Blood Pressure 136/70 Pulse Oximetry 98 Oxygen Delivery Method Room Air BMI result Body Mass Index 29.0 Const Other: Appearance: Alert. Oriented X3. No acute distress. Eyes: Pupils equal, round and reactive to light. ENT: Pharynx erythematous, no exudates, no abscess is visualized , hoarse voice. Neck: Normal inspection. Neck supple. No lymph nodes noted. No crepitus CVS: Normal heart rate and rhythm. Pulses normal. Normal S1 and S2 Respiratory: No respiratory distress. Breath sounds normal. No Wheezing. No rales Abdomen: Soft and nontender. No rigidity. No distention. Skin: Skin warm and dry. Normal skin color. Normal skin turgor. Extremities: No lower extremity edema. No Lacerations. No Rash Neuro: Oriented X 3. No motor deficit. No sensory deficit. Moving all extremities. No slurred speech. CN 2 through 12 grossly intact Psych: calm, cooperative, normal affect Course Course Course Narrative: patient is well-appearing, likely having viral bronchitis. All of patient's labs, imaging and EKG pending chest x-ray normal, CT scan normal. Patient likely has viral bronchitis as stated above. White blood cell count within normal limits , O2 sat 98% on room air pt was given PO viscous lidocaine and decadron, tessalon dat patient tested negative for RSV influenza and COVID. Medications Administered Discontinued Medications Generic Name Dose Route Start Last Admin Trade Name Freq PRN Reason Stop Dose Admin Benzonatate 100 mg 02/13/22 04:35 02/13/22 04:46 Benzonatate 100 Mg Capsule PO 02/13/22 04:36 100 mg ONCE ONE Administration Dexamethasone Sodium Phosphate 6 mg 02/13/22 04:27 02/13/22 04:46 Dexamethasone Sod Phosphate 4 Mg/Ml Vial IVPUSH 02/13/22 04:28 6 mg ONCE ONE Administration Lidocaine HCl 15 ml 02/13/22 04:27 02/13/22 04:46 Lidocaine Hcl Viscous 2 % 15 Ml Solution MUCOUS MEM 02/13/22 04:28 15 ml ONCE ONE Administration Medical Decision Making Lab Data Result diagrams: 02/13/22 03:47 02/13/22 03:47 Labs: Lab Results 02/13/22 02/13/22 02/13/22 Range/Units 03:47 03:47 03:47 WBC 6.2 (4.8-10.8) X10*3/uL RBC 4.20 (4.20-5.50) X10*6/uL Hgb 12.9 (12.0-16.0) g/dl Hct 39.9 (37.0-47.0) % MCV 95.0 (80.0-98.0) fL MCH 30.7 (27.0-33.0) pg MCHC 32.3 (31.0-35.0) g/dl RDW 11.4 (11.0-16.0) % Plt Count 291 (160-400) X10*3/uL MPV 9.3 L (9.4-12.3) fL Immature Gran % (Auto) 0.5 H (0.0-0.4) % Neut % (Auto) 64.8 (45-73) % Lymph % (Auto) 21.3 (20-40) % [place] % (Auto) 8.4 (2-11) % Eos % (Auto) 4.7 H (0-4) % Baso % (Auto) 0.3 (0-2) % Lymph # (Auto) 1.3 (1.2-4.9) X10*3/uL [place] # (Auto) 0.5 (0.1-1.2) X10*3/uL Eos # (Auto) 0.3 (0.0-0.4) X10*3/uL Baso # (Auto) 0.0 (0.0-0.2) X10*3/uL Abs Immat Gran (auto) 0.03 (0.00-0.03) X10*3/uL Absolute Neuts (auto) 4.0 (2.0-8.3) x10*3/uL Absolute Nucleated RBC 0.000 (0.0-0.012) X10*3/uL Nucleated RBC % (auto) 0.0 (0.0-0.2) /100WBC Smear Tech's Comments VERIFIED Sodium 139 (135-145) mmol/L Potassium 4.3 (3.3-5.1) mmol/L Chloride 105 (96-108) mmol/L Carbon Dioxide 26 (22-29) mmol/L Anion Gap 12 (12-20) BUN 15 (9-16) mg/dL Creatinine 0.72 (0.5-1.4) mg/dL Estim Creat Clear Calc 61.4 Estimated GFR > 60 Random Glucose 137 H (60-115) mg/dL Lactic Acid 1.1 (0.5-2.0) mmol/L Calcium 8.8 (8.4-10.2) mg/dL Total Bilirubin 0.3 (0.0-1.0) mg/dL Direct Bilirubin < 0.2 (0.0-0.5) mg/dL AST 20 (5-31) U/L ALT 13 (0-31) U/L Alkaline Phosphatase 83 (39-117) U/L Troponin I High Sens (<3.5-17.0) ng/L Total Protein 6.7 (6.5-8.0) g/dL Albumin 3.6 (3.5-5.0) g/dL Influenza Type A (PCR) (Negative) Influenza Type B (PCR) (Negative) RSV RNA Qual (PCR) (Negative) SARS-CoV-2 RNA (RT-PCR) (Negative) 02/13/22 02/13/22 Range/Units 03:47 03:50 WBC (4.8-10.8) X10*3/uL RBC (4.20-5.50) X10*6/uL Hgb (12.0-16.0) g/dl Hct (37.0-47.0) % MCV (80.0-98.0) fL MCH (27.0-33.0) pg MCHC (31.0-35.0) g/dl RDW (11.0-16.0) % Plt Count (160-400) X10*3/uL MPV (9.4-12.3) fL Immature Gran % (Auto) (0.0-0.4) % Neut % (Auto) (45-73) % Lymph % (Auto) (20-40) % [place] % (Auto) (2-11) % Eos % (Auto) (0-4) % Baso % (Auto) (0-2) % Lymph # (Auto) (1.2-4.9) X10*3/uL [place] # (Auto) (0.1-1.2) X10*3/uL Eos # (Auto) (0.0-0.4) X10*3/uL Baso # (Auto) (0.0-0.2) X10*3/uL Abs Immat Gran (auto) (0.00-0.03) X10*3/uL Absolute Neuts (auto) (2.0-8.3) x10*3/uL Absolute Nucleated RBC (0.0-0.012) X10*3/uL Nucleated RBC % (auto) (0.0-0.2) /100WBC Smear Tech's Comments Sodium (135-145) mmol/L Potassium (3.3-5.1) mmol/L Chloride (96-108) mmol/L Carbon Dioxide (22-29) mmol/L Anion Gap (12-20) BUN (9-16) mg/dL Creatinine (0.5-1.4) mg/dL Estim Creat Clear Calc Estimated GFR Random Glucose (60-115) mg/dL Lactic Acid (0.5-2.0) mmol/L Calcium (8.4-10.2) mg/dL Total Bilirubin (0.0-1.0) mg/dL Direct Bilirubin (0.0-0.5) mg/dL AST (5-31) U/L ALT (0-31) U/L Alkaline Phosphatase (39-117) U/L Troponin I High Sens < 3.5 (<3.5-17.0) ng/L Total Protein (6.5-8.0) g/dL Albumin (3.5-5.0) g/dL Influenza Type A (PCR) NEGATIVE (Negative) Influenza Type B (PCR) NEGATIVE (Negative) RSV RNA Qual (PCR) NEGATIVE (Negative) SARS-CoV-2 RNA (RT-PCR) NEGATIVE (Negative) Imaging Data Chest x-ray: Radiologist's impression: FINDINGS: The lungs are well expanded. There is no focal consolidation, edema, or effusion. No pneumothorax. The cardiomediastinal silhouette is within normal limits. No acute osseous abnormality. XR/XR chest 1V IMPRESSION: Clear lungs. ? CT scan - abdomen: Radiologist's impression: FINDINGS: LUNG BASES: The visualized lung bases are unremarkable.? LIVER, GALLBLADDER, AND BILIARY TREE: The liver is normal in size, shape, and attenuation. No focal hepatic lesion or biliary ductal dilatation is present. The gallbladder is unremarkable with no evidence of radiopaque gallstones, gallbladder wall thickening, or obvious pericholecystic inflammatory changes.? PANCREAS: Unremarkable.? SPLEEN: Unremarkable.? ADRENAL GLANDS: Unremarkable.? KIDNEYS AND URETERS: The kidneys are normal in size, shape, and attenuation. No hydronephrosis, hydroureter, or calculi seen. No perinephric stranding. ? BLADDER: Unremarkable.? GASTROINTESTINAL TRACT: The small and large bowel are unremarkable. The appendix is unremarkable.? ABDOMINAL WALL: No significant hernia is appreciated.? LYMPH NODES: Normal. VASCULAR: Normal caliber aorta with mild atherosclerotic calcification. PELVIC VISCERA: Uterus not seen. No adnexal mass.? OSSEOUS STRUCTURES: No acute or suspicious osseous abnormality. Mild degenerative changes of the spine. Vacuum disc phenomenon at the lower lumbar spine.? CT/CT abdomen pelvis wo IV con IMPRESSION: No acute findings in the abdomen or pelvis. No inflammatory changes. Normal appendix. ? Fleischner guidelines were followed. Discharge Plan Discharge Clinical Impression: Acute viral bronchitis, Abdominal wall pain Patient Disposition: Home, Self-Care Instructions: Acute Bronchitis (ED) Additional Instructions: Please follow-up with your primary care physician tomorrow. If you have any worsening or new symptoms, please return to the emergency room or call 911 Prescriptions: New benzonatate 100 mg capsule 100 mg PO TID PRN (Reason: cough) Qty: 10 0RF benzocaine 15 mg lozenge 15 mg mucous membrane Q3H PRN (Reason: sore throat) Qty: 18 0RF No Action atorvastatin 40 mg tablet 1 tab PO DAILY ibuprofen 800 mg tablet 1 tab PO TID PRN (Reason: Pain) melatonin 3 mg tablet 1 tab PO BEDTIME baclofen 20 mg tablet 1 tab PO TID cetirizine 10 mg tablet 10 mg PO DAILY alendronate 70 mg tablet 70 mg PO QWEEK (DME) lancets [TRUEplus Lancets] 33 gauge misc See Rx Instructions .ROUTE BID Qty: 100 Rx Instructions: As directed (DME) FreeStyle Lite Strips Strip See Rx Instructions .ROUTE BID Qty: 10 Rx Instructions: As directed diclofenac sodium 1 % gel 2 g topical QID sennosides [senna] 8.6 mg tablet 17.2 mg PO BEDTIME Qty: 60 6RF polyethylene glycol 3350 [Miralax] 17 gram/dose powder 17 g PO DAILY 30 Days Qty: 510 11RF famotidine [Pepcid] 40 mg tablet 40 mg PO BEDTIME Qty: 30 11RF simethicone 180 mg capsule 180 mg PO BID 30 Days Qty: 60 3RF Rx Instructions: after meals
[2022-02-13 03:54] LABS: Basophils Percent Auto 0.3 % (0-2); Eosinophils Absolute Auto 0.3 X10*3/uL (0.0-0.4); Eosinophils Percent Auto 4.7 % (0-4); Hematocrit 39.9 % (37.0-47.0); Hemoglobin 12.9 g/dl (12.0-16.0); Imm Gran Abs Auto 0.03 X10*3/uL (0.00-0.03); Imm Gran Pct Auto 0.5 % (0.0-0.4); Lymphocytes Absolute Auto 1.3 X10*3/uL (1.2-4.9); Lymphocytes Percent Auto 21.3 % (20-40); MANUAL DIFF FLAG SCAN; Mean Corpuscular HGB Conc 32.3 g/dl (31.0-35.0); Mean Corpuscular Hemoglobin 30.7 pg (27.0-33.0); Mean Platelet Volume 9.3 fL (9.4-12.3); Monocytes Absolute Auto 0.5 X10*3/uL (0.1-1.2); Monocytes Percent Auto 8.4 % (2-11); Neutrophils Percent Auto 64.8 % (45-73); Platelet Count 291 X10*3/uL (160-400); Red Cell Distribution Width 11.4 % (11.0-16.0); SCAN SMEAR FLAG 1; White Blood Count 6.2 X10*3/uL (4.8-10.8)
[2022-02-13 04:14] LABS: Lactic Acid 1.1 mmol/L (0.5-2.0)
[2022-02-13 04:19] LABS: Alanine Aminotransferase 13 U/L (0-31); Albumin Level 3.6 g/dL (3.5-5.0); Alkaline Phosphatase 83 U/L (39-117); Anion Gap 12 (12-20); Aspartate Amino Transferase 20 U/L (5-31); Bilirubin Direct < 0.2 mg/dL (0.0-0.5); Bilirubin Total 0.3 mg/dL (0.0-1.0); Blood Urea Nitrogen 15 mg/dL (9-16); Calcium 8.8 mg/dL (8.4-10.2); Carbon Dioxide 26 mmol/L (22-29); Chloride 105 mmol/L (96-108); Creatinine Clr Calc Pharmacy 61.4; Estimated Glomerular Filt Rate > 60; Glucose Random 137 mg/dL (60-115); Potassium 4.3 mmol/L (3.3-5.1); Sodium 139 mmol/L (135-145); Total Protein 6.7 g/dL (6.5-8.0)
[2022-02-13 04:21] LABS: SLIDE REVIEW VERIFIED
[2022-02-13 04:30] LABS: Troponin-I High Sensitivity < 3.5 ng/L (<3.5-17.0)
[2022-02-13 04:46] LABS: Influenza A PCR NEGATIVE (Negative); Influenza B PCR NEGATIVE (Negative); Resp Syncy Virus RNA Qual PCR NEGATIVE (Negative); SARS COV2 PCR INHOUSE NEGATIVE (Negative)
[2022-02-13] MEDS: Lidocaine HCl Viscous 2 % 15 ML SOLUTION MUCOUS MEM (04:46)
[2022-02-13] MEDS: dexAMETHasone sod phosphate 4 MG/ML VIAL 6 MG IVPUSH (04:46)
[2022-02-13] MEDS: Benzonatate 100 MG CAPSULE PO (04:46)
== END 2022-02-13 05:38 | disposition home or self-care (01) ==
PROVIDERS: Emergency Provider Emergency Medicine
DX: J20.8 Acute bronchitis due to other specified organisms (principal); R05.9 Cough, unspecified; R07.89 Other chest pain; M54.50 Low back pain, unspecified; R10.9 Unspecified abdominal pain; Z20.822 Contact with and (suspected) exposure to COVID-19; Z79.899 Other long term (current) drug therapy
CPT/HCPCS: 0241U; 36415; 71045; 74176; 80048; 80076; 83605; 84484; 85025; 87040; 93005; 99283; 99284; J1100

== ENCOUNTER → 2022-02-19 12:27 | Outpatient (BNVA) | payer MEDICARE, MEDICAID, SELFPAY | PROVIDERS: PCP Internal Medicine; Referring Provider Internal Medicine; Visit Provider Nurse Practitioner | DX: K21.9 Gastro-esophageal reflux disease without esophagitis (principal); K59.04 Chronic idiopathic constipation; R14.0 Abdominal distension (gaseous) | CPT/HCPCS: 99212 ==

== ENCOUNTER 2022-04-04 15:00 | Outpatient (RCR) | payer MEDICARE, MEDICAID, SELFPAY | END 2022-04-23 13:58 | disposition home or self-care (01) | LOC: HO.PT 15:00 | PROVIDERS: Visit Provider Physician Assistant | DX: M51.16 Intervertebral disc disorders with radiculopathy, lumbar region (principal); M51.36 Other intervertebral disc degeneration, lumbar region; M47.896 Other spondylosis, lumbar region | CPT/HCPCS: 97110; 97162 ==

== ENCOUNTER → 2022-06-19 13:30 | Outpatient (BNVA) | payer MEDICARE, MEDICAID, SELFPAY | PROVIDERS: PCP Internal Medicine; Visit Provider Nurse Practitioner | DX: K59.04 Chronic idiopathic constipation (principal); R11.0 Nausea; R14.0 Abdominal distension (gaseous); K21.9 Gastro-esophageal reflux disease without esophagitis; E11.9 Type 2 diabetes mellitus without complications; E78.00 Pure hypercholesterolemia, unspecified; F03.90 Unspecified dementia, unspecified severity, without behavioral disturbance, psychotic disturbance, mood disturbance, and anxiety | CPT/HCPCS: 99212 ==

== ENCOUNTER 2022-07-07 12:45 | Emergency (ER) | payer OTHER, SELFPAY ==
--- NOTE | ~2022-07-07 | XR_ITS ---
EXAMINATION: XR ABDOMEN KUB CLINICAL INDICATION: Abdominal pain COMPARISON: CT scan abdomen pelvis 02/13/2022 TECHNIQUE: AP view of the abdomen. FINDINGS: The bowel gas pattern is normal with no evidence of ileus or obstruction. Moderate to large-volume stool throughout colon. Most of the stool is in the ascending colon. No unusual soft tissue calcifications are noted. The bones are unremarkable. XR/XR KUB IMPRESSION: No acute abnormality. Moderate to large-volume stool in colon.
[2022-07-07 13:15] VITALS: BP 122/74; PULSE 79; RESP 16; TEMP 36.8; O2SAT 99; BMI 29.2
--- NOTE | 2022-07-07 13:15 | ED.ABDPAIN ---
HPI - Abdominal Pain General Chief Complaint: Abdominal Pain <CECILY Chandra - Last Filed: 07/07/22 13:19> Stated Complaint: abd pain <CECILY Chandra - Last Filed: 07/07/22 13:19> Time Seen by Provider: 07/07/22 16:58 <CECILY Chandra - Last Filed: 07/07/22 13:19> Source: patient <Kendrick Almaguer MD - Last Filed: 07/07/22 19:08> Mode of arrival: ambulatory <Kendrick Almaguer MD - Last Filed: 07/07/22 19:08> Limitations: no limitations <Kendrick Almaguer MD - Last Filed: 07/07/22 19:08> History of Present Illness HPI narrative: Patient has chronic abdominal pain more years with history of constipation with chronic abdominal pain comes here for upper abdominal pain radiate to the back no fever no chills no nausea no vomiting. No fever/ chills no urinary complaints patient taking MiraLax 2 times a day and the Colace capsule says that she is moving her bowels last bowel movement was yesterday <Kendrick Almaguer MD - Last Filed: 07/07/22 19:08> Related Data Home Medications: Home Medications Medication Instructions Recorded Confirmed atorvastatin 40 mg tablet 1 tab PO DAILY 10/26/21 10/26/21 baclofen 20 mg tablet 1 tab PO TID 10/26/21 10/26/21 ibuprofen 800 mg tablet 1 tab PO TID PRN Pain 10/26/21 10/26/21 melatonin 3 mg tablet 1 tab PO BEDTIME 10/26/21 10/26/21 alendronate 70 mg tablet 70 mg PO QWEEK 01/15/22 blood sugar diagnostic (FreeStyle #10 ea 01/15/22 Lite Strips) cetirizine 10 mg tablet 10 mg PO DAILY 01/15/22 diclofenac sodium 1 % topical gel 2 g topical QID muscle pain 01/15/22 lancets 33 gauge (TRUEplus Lancets) #100 ea 01/15/22 Previous Rx's Medication Instructions Recorded polyethylene glycol 3350 17 17 g PO DAILY 30 days #510 grams 01/15/22 gram/dose oral powder (Miralax) bisacodyl 5 mg tablet,delayed 10 mg PO BEDTIME 30 days #60 tabs 06/19/22 release (Dulcolax (bisacodyl)) famotidine 40 mg tablet (Pepcid) 40 mg PO BEDTIME #30 tabs 06/19/22 simethicone 180 mg capsule 180 mg PO BID 30 days #60 caps 06/19/22 <CECILY Chandra - Last Filed: 07/07/22 13:19> Allergies/Adverse Reactions: Allergies Allergy/AdvReac Type Severity Reaction Status Date / Time tramadol Allergy Severe Hallucinati Verified 07/07/22 13:19 ons morphine Allergy Intermediate Hallucinati Verified 07/07/22 13:19 ons <CECILY Chandra - Last Filed: 07/07/22 13:19> Review of Systems Review of Systems Yes all other systems are reviewed and are negative <Kendrick Almaguer MD - Last Filed: 07/07/22 19:08> [facility], [facility] Past Medical History Medical History: Medical History Diabetes type 2, controlled High cholesterol <CECILY Chandra - Last Filed: 07/07/22 13:19> Surgical History: Surgical History H/O section H/O colonoscopy H/O: hysterectomy <CECILY Chandra - Last Filed: 07/07/22 13:19> Social History Social History: Social History Alcohol intake: former Patient Tobacco Use Status: Never used Tobacco Advance Directives: Yes Advance Directives on File: Yes Advance Directives Date on File: 11/15/21 Current occupation: [employer] <CECILY Chandra - Last Filed: 07/07/22 13:19> Physical Exam ED Vital Signs: Vital Signs - 24 hr 07/07/22 13:15 07/07/22 17:54 Temperature 98.3 F 98.3 F Pulse Rate 79 60 Respiratory Rate 16 16 Blood Pressure 122/74 174/92 H Pulse Oximetry 99 100 Oxygen Delivery Method Room Air Room Air BMI result Body Mass Index 29.2 <CECILY Chandra - Last Filed: 07/07/22 13:19> Vital Signs - 24 hr 07/07/22 13:15 07/07/22 17:54 Temperature 98.3 F 98.3 F Pulse Rate 79 60 Respiratory Rate 16 16 Blood Pressure 122/74 174/92 H Pulse Oximetry 99 100 Oxygen Delivery Method Room Air Room Air BMI result Body Mass Index 29.2 <Kendrick Almaguer MD - Last Filed: 07/07/22 19:08> Appearance: Alert. Oriented X3. No acute distress. ENT: Pharynx normal. Oral Mucosa moist Neck: Normal inspection. Neck supple. CVS: Normal heart rate and rhythm. Pulses normal. Respiratory: No respiratory distress. Equal air entry bilateral, no wheezing/rales/rhonchi Abdomen: Soft mild upper abdominal tenderness. No rebound tenderness/guarding Bowel sounds are present, no mass palpable, no CVA tenderness Skin: Skin warm and dry. Normal skin color. Normal skin turgor. Extremities: No lower extremity edema. No calf tenderness Neuro: Oriented X 3. 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 <Kendrick Almaguer MD - Last Filed: 07/07/22 19:08> Result Diagrams: 07/07/22 14:10 07/07/22 14:10 <CECILY Chandra - Last Filed: 07/07/22 13:19> Labs: Lab Results 07/07/22 07/07/22 07/07/22 Range/Units 14:10 14:10 14:10 WBC 6.4 (4.8-10.8) X10*3/uL RBC 4.23 (4.20-5.50) X10*6/uL Hgb 13.3 (12.0-16.0) g/dl Hct 41.2 (37.0-47.0) % MCV 97.4 (80.0-98.0) fL MCH 31.4 (27.0-33.0) pg MCHC 32.3 (31.0-35.0) g/dl RDW 11.8 (11.0-16.0) % Plt Count 303 (160-400) X10*3/uL MPV 9.4 (9.4-12.3) fL Immature Gran % (Auto) 0.3 (0.0-0.4) % Neut % (Auto) 72.6 (45-73) % Lymph % (Auto) 17.4 L (20-40) % Imperial % (Auto) 7.4 (2-11) % Eos % (Auto) 2.0 (0-4) % Baso % (Auto) 0.3 (0-2) % Lymph # (Auto) 1.1 L (1.2-4.9) X10*3/uL Imperial # (Auto) 0.5 (0.1-1.2) X10*3/uL Eos # (Auto) 0.1 (0.0-0.4) X10*3/uL Baso # (Auto) 0.0 (0.0-0.2) X10*3/uL Abs Immat Gran (auto) 0.02 (0.00-0.03) X10*3/uL Absolute Neuts (auto) 4.6 (2.0-8.3) x10*3/uL Absolute Nucleated RBC 0.000 (0.0-0.012) X10*3/uL Nucleated RBC % (auto) 0.0 (0.0-0.2) /100WBC PT 9.8 L (10.0-13.1) SEC INR 0.9 (0.9-1.1) Sodium 142 (135-145) mmol/L Potassium 4.1 (3.3-5.1) mmol/L Chloride 110 H (96-108) mmol/L Carbon Dioxide 27 (22-29) mmol/L Anion Gap 9 L (12-20) BUN 15 (9-16) mg/dL Creatinine 0.88 (0.5-1.4) mg/dL Estim Creat Clear Calc 50.4 Estimated GFR > 60 Random Glucose 80 (60-115) mg/dL Calcium 8.7 (8.4-10.2) mg/dL Magnesium 2.3 (1.6-2.6) mg/dL Total Bilirubin 0.4 (0.0-1.0) mg/dL AST 19 (5-31) U/L ALT 11 (0-31) U/L Alkaline Phosphatase 69 (39-117) U/L Troponin I High Sens (<3.5-17.0) ng/L Total Protein 6.1 L (6.5-8.0) g/dL Albumin 3.7 (3.5-5.0) g/dL Lipase 33 (8-78) U/L Influenza Type A (PCR) (Negative) Influenza Type B (PCR) (Negative) RSV RNA Qual (PCR) (Negative) SARS-CoV-2 RNA (RT-PCR) (Negative) 07/07/22 07/07/22 Range/Units 14:10 14:10 WBC (4.8-10.8) X10*3/uL RBC (4.20-5.50) X10*6/uL Hgb (12.0-16.0) g/dl Hct (37.0-47.0) % MCV (80.0-98.0) fL MCH (27.0-33.0) pg MCHC (31.0-35.0) g/dl RDW (11.0-16.0) % Plt Count (160-400) X10*3/uL MPV (9.4-12.3) fL Immature Gran % (Auto) (0.0-0.4) % Neut % (Auto) (45-73) % Lymph % (Auto) (20-40) % Imperial % (Auto) (2-11) % Eos % (Auto) (0-4) % Baso % (Auto) (0-2) % Lymph # (Auto) (1.2-4.9) X10*3/uL Imperial # (Auto) (0.1-1.2) X10*3/uL Eos # (Auto) (0.0-0.4) X10*3/uL Baso # (Auto) (0.0-0.2) X10*3/uL Abs Immat Gran (auto) (0.00-0.03) X10*3/uL Absolute Neuts (auto) (2.0-8.3) x10*3/uL Absolute Nucleated RBC (0.0-0.012) X10*3/uL Nucleated RBC % (auto) (0.0-0.2) /100WBC PT (10.0-13.1) SEC INR (0.9-1.1) Sodium (135-145) mmol/L Potassium (3.3-5.1) mmol/L Chloride (96-108) mmol/L Carbon Dioxide (22-29) mmol/L Anion Gap (12-20) BUN (9-16) mg/dL Creatinine (0.5-1.4) mg/dL Estim Creat Clear Calc Estimated GFR Random Glucose (60-115) mg/dL Calcium (8.4-10.2) mg/dL Magnesium (1.6-2.6) mg/dL Total Bilirubin (0.0-1.0) mg/dL AST (5-31) U/L ALT (0-31) U/L Alkaline Phosphatase (39-117) U/L Troponin I High Sens < 2.7 (<3.5-17.0) ng/L Total Protein (6.5-8.0) g/dL Albumin (3.5-5.0) g/dL Lipase (8-78) U/L Influenza Type A (PCR) NEGATIVE (Negative) Influenza Type B (PCR) NEGATIVE (Negative) RSV RNA Qual (PCR) NEGATIVE (Negative) SARS-CoV-2 RNA (RT-PCR) NEGATIVE (Negative) <CECILY Chandra - Last Filed: 07/07/22 13:19> Lab Results 07/07/22 07/07/22 07/07/22 Range/Units 14:10 14:10 14:10 WBC 6.4 (4.8-10.8) X10*3/uL RBC 4.23 (4.20-5.50) X10*6/uL Hgb 13.3 (12.0-16.0) g/dl Hct 41.2 (37.0-47.0) % MCV 97.4 (80.0-98.0) fL MCH 31.4 (27.0-33.0) pg MCHC 32.3 (31.0-35.0) g/dl RDW 11.8 (11.0-16.0) % Plt Count 303 (160-400) X10*3/uL MPV 9.4 (9.4-12.3) fL Immature Gran % (Auto) 0.3 (0.0-0.4) % Neut % (Auto) 72.6 (45-73) % Lymph % (Auto) 17.4 L (20-40) % Imperial % (Auto) 7.4 (2-11) % Eos % (Auto) 2.0 (0-4) % Baso % (Auto) 0.3 (0-2) % Lymph # (Auto) 1.1 L (1.2-4.9) X10*3/uL Imperial # (Auto) 0.5 (0.1-1.2) X10*3/uL Eos # (Auto) 0.1 (0.0-0.4) X10*3/uL Baso # (Auto) 0.0 (0.0-0.2) X10*3/uL Abs Immat Gran (auto) 0.02 (0.00-0.03) X10*3/uL Absolute Neuts (auto) 4.6 (2.0-8.3) x10*3/uL Absolute Nucleated RBC 0.000 (0.0-0.012) X10*3/uL Nucleated RBC % (auto) 0.0 (0.0-0.2) /100WBC PT 9.8 L (10.0-13.1) SEC INR 0.9 (0.9-1.1) Sodium 142 (135-145) mmol/L Potassium 4.1 (3.3-5.1) mmol/L Chloride 110 H (96-108) mmol/L Carbon Dioxide 27 (22-29) mmol/L Anion Gap 9 L (12-20) BUN 15 (9-16) mg/dL Creatinine 0.88 (0.5-1.4) mg/dL Estim Creat Clear Calc 50.4 Estimated GFR > 60 Random Glucose 80 (60-115) mg/dL Calcium 8.7 (8.4-10.2) mg/dL Magnesium 2.3 (1.6-2.6) mg/dL Total Bilirubin 0.4 (0.0-1.0) mg/dL AST 19 (5-31) U/L ALT 11 (0-31) U/L Alkaline Phosphatase 69 (39-117) U/L Troponin I High Sens (<3.5-17.0) ng/L Total Protein 6.1 L (6.5-8.0) g/dL Albumin 3.7 (3.5-5.0) g/dL Lipase 33 (8-78) U/L Influenza Type A (PCR) (Negative) Influenza Type B (PCR) (Negative) RSV RNA Qual (PCR) (Negative) SARS-CoV-2 RNA (RT-PCR) (Negative) 07/07/22 07/07/22 Range/Units 14:10 14:10 WBC (4.8-10.8) X10*3/uL RBC (4.20-5.50) X10*6/uL Hgb (12.0-16.0) g/dl Hct (37.0-47.0) % MCV (80.0-98.0) fL MCH (27.0-33.0) pg MCHC (31.0-35.0) g/dl RDW (11.0-16.0) % Plt Count (160-400) X10*3/uL MPV (9.4-12.3) fL Immature Gran % (Auto) (0.0-0.4) % Neut % (Auto) (45-73) % Lymph % (Auto) (20-40) % Imperial % (Auto) (2-11) % Eos % (Auto) (0-4) % Baso % (Auto) (0-2) % Lymph # (Auto) (1.2-4.9) X10*3/uL Imperial # (Auto) (0.1-1.2) X10*3/uL Eos # (Auto) (0.0-0.4) X10*3/uL Baso # (Auto) (0.0-0.2) X10*3/uL Abs Immat Gran (auto) (0.00-0.03) X10*3/uL Absolute Neuts (auto) (2.0-8.3) x10*3/uL Absolute Nucleated RBC (0.0-0.012) X10*3/uL Nucleated RBC % (auto) (0.0-0.2) /100WBC PT (10.0-13.1) SEC INR (0.9-1.1) Sodium (135-145) mmol/L Potassium (3.3-5.1) mmol/L Chloride (96-108) mmol/L Carbon Dioxide (22-29) mmol/L Anion Gap (12-20) BUN (9-16) mg/dL Creatinine (0.5-1.4) mg/dL Estim Creat Clear Calc Estimated GFR Random Glucose (60-115) mg/dL Calcium (8.4-10.2) mg/dL Magnesium (1.6-2.6) mg/dL Total Bilirubin (0.0-1.0) mg/dL AST (5-31) U/L ALT (0-31) U/L Alkaline Phosphatase (39-117) U/L Troponin I High Sens < 2.7 (<3.5-17.0) ng/L Total Protein (6.5-8.0) g/dL Albumin (3.5-5.0) g/dL Lipase (8-78) U/L Influenza Type A (PCR) NEGATIVE (Negative) Influenza Type B (PCR) NEGATIVE (Negative) RSV RNA Qual (PCR) NEGATIVE (Negative) SARS-CoV-2 RNA (RT-PCR) NEGATIVE (Negative) <Kendrick Almaguer MD - Last Filed: 07/07/22 19:08> Medications Administered Discontinued Medications Generic Name Dose Route Start Last Admin Trade Name Freq PRN Reason Stop Dose Admin Dicyclomine HCl 20 mg 07/07/22 17:16 07/07/22 17:52 Dicyclomine Hcl 10 Mg Capsule PO 07/07/22 17:17 20 mg ONCE ONE Administration <CECILY Chandra - Last Filed: 07/07/22 13:19> Medications Administered Discontinued Medications Generic Name Dose Route Start Last Admin Trade Name Freq PRN Reason Stop Dose Admin Dicyclomine HCl 20 mg 07/07/22 17:16 07/07/22 17:52 Dicyclomine Hcl 10 Mg Capsule PO 07/07/22 17:17 20 mg ONCE ONE Administration <Kendrick Almaguer MD - Last Filed: 07/07/22 19:08> Discharge Plan Discharge Clinical Impression: Abdominal pain, chronic, generalized, Constipation <CECILY Chandra - Last Filed: 07/07/22 13:19> Patient Disposition: Home, Self-Care <CECILY Chandra - Last Filed: 07/07/22 13:19> Instructions: Constipation (ED), Chronic Abdominal Pain (ED) <CECILY Chandra - Last Filed: 07/07/22 13:19> Additional Instructions: Take her MiraLax and Colace tablets as prescribed by evp chief exploration officer Follow-up with your PCP/evp chief exploration officer <CECILY Chandra - Last Filed: 07/07/22 13:19> Prescriptions: No Action atorvastatin 40 mg tablet 1 tab PO DAILY ibuprofen 800 mg tablet 1 tab PO TID PRN (Reason: Pain) melatonin 3 mg tablet 1 tab PO BEDTIME baclofen 20 mg tablet 1 tab PO TID bisacodyl [Dulcolax (bisacodyl)] 5 mg tablet,delayed release (DR/EC) 10 mg PO BEDTIME 30 Days Qty: 60 3RF famotidine [Pepcid] 40 mg tablet 40 mg PO BEDTIME Qty: 30 11RF simethicone 180 mg capsule 180 mg PO BID 30 Days Qty: 60 6RF Rx Instructions: after meals cetirizine 10 mg tablet 10 mg PO DAILY alendronate 70 mg tablet 70 mg PO QWEEK (DME) lancets [TRUEplus Lancets] 33 gauge misc See Rx Instructions .ROUTE BID Qty: 100 Rx Instructions: As directed (DME) FreeStyle Lite Strips Strip See Rx Instructions .ROUTE BID Qty: 10 Rx Instructions: As directed diclofenac sodium 1 % gel 2 g topical QID polyethylene glycol 3350 [Miralax] 17 gram/dose powder 17 g PO DAILY 30 Days Qty: 510 11RF <CECILY Chandra - Last Filed: 07/07/22 13:19>
--- NOTE | 2022-07-07 13:17 | ECG_ITS ---
Test Reason : abd pain Blood Pressure : / mmHG Vent. Rate : 061 BPM Atrial Rate : 061 BPM P-R Int : 140 ms QRS Dur : 074 ms QT Int : 404 ms P-R-T Axes : 028 024 022 degrees QTc Int : 406 ms Normal sinus rhythm Cannot rule out Inferior infarct (cited on or before 07-JUL-2022) Nonspecific ST and T wave abnormality Abnormal ECG When compared with ECG of 13-FEB-2022 03:37, No significant change was found Referred By: Litzy Portillo Electronically Signed By:RELL RAE
[2022-07-07 14:15] LABS: MANUAL DIFF FLAG NO
[2022-07-07 14:17] LABS: Basophils Percent Auto 0.3 % (0-2); Eosinophils Absolute Auto 0.1 X10*3/uL (0.0-0.4); Hematocrit 41.2 % (37.0-47.0); Hemoglobin 13.3 g/dl (12.0-16.0); Imm Gran Abs Auto 0.02 X10*3/uL (0.00-0.03); Imm Gran Pct Auto 0.3 % (0.0-0.4); Lymphocytes Absolute Auto 1.1 X10*3/uL (1.2-4.9); Lymphocytes Percent Auto 17.4 % (20-40); Mean Corpuscular HGB Conc 32.3 g/dl (31.0-35.0); Mean Corpuscular Hemoglobin 31.4 pg (27.0-33.0); Mean Corpuscular Volume 97.4 fL (80.0-98.0); Mean Platelet Volume 9.4 fL (9.4-12.3); Monocytes Absolute Auto 0.5 X10*3/uL (0.1-1.2); Monocytes Percent Auto 7.4 % (2-11); Neutrophils Absolute Auto 4.6 x10*3/uL (2.0-8.3); Neutrophils Percent Auto 72.6 % (45-73); Platelet Count 303 X10*3/uL (160-400); Red Blood Count 4.23 X10*6/uL (4.20-5.50); Red Cell Distribution Width 11.8 % (11.0-16.0); White Blood Count 6.4 X10*3/uL (4.8-10.8)
[2022-07-07 14:21] LABS: INTERNATIONAL NORM RATIO 0.9 (0.9-1.1); Prothrombin Time 9.8 SEC (10.0-13.1)
[2022-07-07 14:31] LABS: Alanine Aminotransferase 11 U/L (0-31); Albumin Level 3.7 g/dL (3.5-5.0); Alkaline Phosphatase 69 U/L (39-117); Anion Gap 9 (12-20); Aspartate Amino Transferase 19 U/L (5-31); Bilirubin Total 0.4 mg/dL (0.0-1.0); Blood Urea Nitrogen 15 mg/dL (9-16); Calcium 8.7 mg/dL (8.4-10.2); Carbon Dioxide 27 mmol/L (22-29); Chloride 110 mmol/L (96-108); Creatinine Clr Calc Pharmacy 50.4; Estimated Glomerular Filt Rate > 60; Glucose Random 80 mg/dL (60-115); Lipase 33 U/L (8-78); Magnesium 2.3 mg/dL (1.6-2.6); Potassium 4.1 mmol/L (3.3-5.1); Sodium 142 mmol/L (135-145); Total Protein 6.1 g/dL (6.5-8.0)
[2022-07-07 14:47] LABS: Troponin-I High Sensitivity < 2.7 ng/L (<3.5-17.0)
[2022-07-07 14:54] LABS: Influenza A PCR NEGATIVE (Negative); Influenza B PCR NEGATIVE (Negative); Resp Syncy Virus RNA Qual PCR NEGATIVE (Negative); SARS COV2 PCR INHOUSE NEGATIVE (Negative)
[2022-07-07] MEDS: Dicyclomine HCl 10 MG CAPSULE 20 MG PO (17:52)
[2022-07-07 17:54] VITALS: BP 174/92; PULSE 60; RESP 16; TEMP 36.8; O2SAT 100
[2022-07-07] MEDS: Milk of Magnesia 30 ML ORAL.SUSP PO (19:22)
== END 2022-07-07 19:26 | disposition home or self-care (01) ==
PROVIDERS: Physician Assistant Medical; Emergency Provider Internal Medicine
DX: R10.2 Pelvic and perineal pain (principal); K59.00 Constipation, unspecified; M54.50 Low back pain, unspecified; R94.31 Abnormal electrocardiogram [ECG] [EKG]; Z79.899 Other long term (current) drug therapy; Z20.822 Contact with and (suspected) exposure to COVID-19; Z20.828 Contact with and (suspected) exposure to other viral communicable diseases
CPT/HCPCS: 0241U; 36415; 74018; 80053; 83690; 83735; 84484; 85025; 85610; 93005; 99284; 99285

== ENCOUNTER 2022-07-09 12:41 | Outpatient (REF) | payer OTHER, SELFPAY ==
--- NOTE | ~2022-07-09 | MM_ITS ---
EXAMINATION: MM SCREENING DIGITAL BREAST TOMOSYNTHESIS, BILATERAL CLINICAL INFORMATION: Screening. Asymptomatic. The lifetime risk of breast cancer based on the Tyrer-Cuzick Model is 3.1%. COMPARISON: Mammography: June 18, 2021 and studies dating back to April 15, 2012 TECHNIQUE: Digital breast tomosynthesis is performed in both the craniocaudal and mediolateral oblique views along with computer-aided detection (CAD). Synthesized 2D images are generated from the tomosynthesis. FINDINGS: There are scattered areas of fibroglandular density (ACR BI-RADS breast composition Category b). There are no new significant masses, abnormal calcifications, or other abnormalities. There is a density about the deep inferior aspect of the left breast which is seen to be stable dating back to study of April 15, 2012 MM/MM tomosynthesis screening BI IMPRESSION: No significant changes from prior exam. ASSESSMENT: BI-RADS 1: Negative RECOMMENDATION: Routine annual mammography screening. This patient's information was entered into a reminder system with a target due date for their next mammogram.
== END 2022-07-09 12:42 | disposition home or self-care (01) ==
LOC: HO.MAMMO 12:41
PROVIDERS: Visit Provider Internal Medicine
DX: Z12.31 Encounter for screening mammogram for malignant neoplasm of breast (principal)
CPT/HCPCS: 77063; 77067

== ENCOUNTER → 2022-07-10 13:29 | Outpatient (BNVA) | payer OTHER, SELFPAY | PROVIDERS: PCP Internal Medicine; Visit Provider Nurse Practitioner | DX: R11.0 Nausea (principal); K59.04 Chronic idiopathic constipation; F03.90 Unspecified dementia, unspecified severity, without behavioral disturbance, psychotic disturbance, mood disturbance, and anxiety | CPT/HCPCS: 99212 ==

== ENCOUNTER → 2022-08-20 13:28 | Outpatient (BNVA) | payer OTHER, SELFPAY | PROVIDERS: PCP Internal Medicine; Visit Provider Nurse Practitioner | DX: K59.04 Chronic idiopathic constipation (principal); K21.9 Gastro-esophageal reflux disease without esophagitis; R14.0 Abdominal distension (gaseous); F03.90 Unspecified dementia, unspecified severity, without behavioral disturbance, psychotic disturbance, mood disturbance, and anxiety; Z79.899 Other long term (current) drug therapy | CPT/HCPCS: 99212 ==

== ENCOUNTER 2022-09-11 16:44 | Emergency (ER) | payer OTHER, SELFPAY ==
--- NOTE | ~2022-09-11 | CT_ITS ---
EXAMINATION: CT ABDOMEN AND PELVIS WITHOUT CONTRAST CLINICAL INFORMATION: Back pain. COMPARISON: CT abdomen/pelvis 02/13/2022. TECHNIQUE: Multidetector volumetric imaging was performed from the superior aspect of the liver through the pubic symphysis. Sagittal and coronal reformatted images were obtained on the technologist's workstation. This CT examination was performed using dose optimization techniques as appropriate, variously including the following: *Automated exposure control *Adjustment of mA and/or kV according to patient size (this includes techniques or standardized protocols for targeted exams where dose is matched to indication/reason for exam; i.e. extremities or head) *Use of iterative reconstruction technique DLP: 509 mGy-cm FINDINGS: Limited examination secondary to motion. Additionally, the lack of intravenous contrast limits evaluation of the solid visceral organs including the liver, spleen, pancreas, and kidneys. LUNG BASES: No focal consolidation or pleural effusion. LIVER, GALLBLADDER, AND BILIARY TREE: The noncontrast liver is normal in size, shape, and attenuation. No focal hepatic lesion or biliary ductal dilatation is present. The gallbladder is unremarkable with no evidence of radiopaque gallstones, gallbladder wall thickening, or obvious pericholecystic inflammatory changes. Stable 0.8 cm calcified nodule posterior to the right hepatic lobe (6:21). PANCREAS: Limited noncontrast motion degraded examination. No significant peripancreatic fat stranding or free fluid. SPLEEN: Normal size. ADRENAL GLANDS: No adrenal mass. KIDNEYS AND URETERS: No nephrolithiasis or hydronephrosis. No significant perinephric fat stranding. BLADDER: Decompressed and suboptimally assessed. GASTROINTESTINAL TRACT: The stomach and the small bowel are nondilated. Normal appendix. No significant pericolonic inflammatory changes or evidence of bowel obstruction. Moderate degree of stool in the colon and rectum. ABDOMINAL WALL: Multiple injection sites in the gluteal regions. No significant hernia. LYMPH NODES: Limited examination due to motion and lack of IV contrast. No bulky lymphadenopathy. VASCULAR: Scattered atherosclerotic disease. Abdominal aorta is normal in caliber. PELVIC VISCERA: Hysterectomy. No free fluid. OSSEOUS STRUCTURES: No acute or aggressive appearing osseous abnormalities. Degenerative changes of the spine. CT/CT abdomen pelvis wo IV con IMPRESSION: Limited examination due to motion and lack of IV contrast. 1. No acute intra-abdominal or pelvic abnormalities to explain the patient's symptoms. 2. Moderate degree of stool in the colon and rectum suggesting constipation.
--- NOTE | ~2022-09-11 | CT_ITS ---
EXAMINATION: CT HEAD WITHOUT CONTRAST CLINICAL INFORMATION: Visual change, confusion. COMPARISON: CT head 10/02/2019. TECHNIQUE: Contiguous axial imaging was performed from the skull base to vertex without intravenous administration of contrast. This CT examination was performed using dose optimization techniques as appropriate, variously including the following: *Automated exposure control *Adjustment of mA and/or kV according to patient size (this includes techniques or standardized protocols for targeted exams where dose is matched to indication/reason for exam; i.e. extremities or head) *Use of iterative reconstruction technique DLP: 538 mGy-cm FINDINGS: Age indeterminate small hypodensities in the right anterior striatocapsular region, new compared to most recent prior from 10/02/2019. There is no evidence of acute intracranial hemorrhage or edematous territorial infarction. A few foci of hypoattenuation in the periventricular and deep white matter are consistent with mild microangiopathy. Iyer-white matter differentiation is preserved. Proportional prominence of the ventricles and sulcal spaces. No evidence for obstructive hydrocephalus. No abnormal mass effect or midline shift. No extra-axial fluid collections. No acute soft tissue or osseous abnormalities. The mastoid air cells and paranasal sinuses are clear. CT/CT head/brain wo IV con IMPRESSION: 1. Age indeterminate small hypodensities in the right anterior striatocapsular region, new compared to most recent prior from 10/02/2019. Further evaluation with an MR of the brain could be obtained as clinically indicated. 2. No evidence of acute intracranial hemorrhage or edematous territorial infarction.
[2022-09-11 17:04] VITALS: BP 130/90; BP 188/84; PULSE 75; PULSE 80; RESP 16; TEMP 36.4; O2SAT 98; O2SAT 99; BMI 27.7
--- NOTE | 2022-09-11 18:23 | ED.BACK ---
HPI - Back Pain/Injury General Chief Complaint: Back Pain/Injury Stated Complaint: back pain radiating to stomach, per ems Time Seen by Provider: 09/11/22 18:08 Source: patient, EMS and old records reviewed Mode of arrival: EMS Limitations: no limitations History of Present Illness HPI Narrative: 67 yo [place] speaking female with history of chronic back pain DM 2, HLD, GERD, migraines, (?)dementia, constipation who presents to the ER for evaluation of acute on chronic low back pain that started 5 days ago after she was sweeping. She states she usually takes baclofen for her pain, she took it today with no improvement. She states the pain is across her entire lower back and radiates to her right buttock. She denies any urinary symptoms. She reported to EMS that the pain wraps around to the abdomen but she currently denies that to me. She denies any nausea, vomiting, diarrhea. No fevers. No urinary incontinence or retention. No falls or trauma. She states she follows with a back specialist in [place] but has not been there in a couple of months. She reports best improvement in her pain with 800 mg of ibuprofen. At the end of interview patient started to act bizarre and say she did not feel well. Wanted to go to sleep. MD elicited complaint: back pain and back injury Pertinent past history: prior back pain Onset (ago): day(s) (5) Timing: progressively worsening Severity: severe Similar Symptoms Previously: Yes Quality: sharp and aching Location: right lower back and left lower back Radiation: buttocks Exacerbating factors: movement Relieving factors: none Context: turning/twisting Associated symptoms: denies other symptoms Treatments prior to arrival: other medications Work related injury: No Related Data Home Medications Medication Instructions Recorded Confirmed atorvastatin 40 mg tablet 1 tab PO DAILY 10/26/21 10/26/21 baclofen 20 mg tablet 1 tab PO TID 10/26/21 10/26/21 ibuprofen 800 mg tablet 1 tab PO TID PRN Pain 10/26/21 10/26/21 melatonin 3 mg tablet 1 tab PO BEDTIME 10/26/21 10/26/21 alendronate 70 mg tablet 70 mg PO QWEEK 01/15/22 blood sugar diagnostic (FreeStyle #10 ea 01/15/22 Lite Strips) cetirizine 10 mg tablet 10 mg PO DAILY 01/15/22 diclofenac sodium 1 % topical gel 2 g topical QID muscle pain 01/15/22 lancets 33 gauge (TRUEplus Lancets) #100 ea 01/15/22 amlodipine 2.5 mg tablet 2.5 mg PO DAILY 07/10/22 Previous Rx's Medication Instructions Recorded polyethylene glycol 3350 17 17 g PO DAILY 30 days #510 grams 01/15/22 gram/dose oral powder (Miralax) bisacodyl 5 mg tablet,delayed 10 mg PO BEDTIME 30 days #60 tabs 06/19/22 release (Dulcolax (bisacodyl)) famotidine 40 mg tablet (Pepcid) 40 mg PO BEDTIME #30 tabs 06/19/22 simethicone 180 mg capsule 180 mg PO BID 30 days #60 caps 06/19/22 linaclotide 145 mcg capsule 145 mcg PO QAM #30 caps 07/10/22 (Linzess) Allergies Allergy/AdvReac Type Severity Reaction Status Date / Time tramadol Allergy Severe Hallucinati Verified 08/20/22 13:35 ons morphine Allergy Intermediate Hallucinati Verified 08/20/22 13:35 ons Review of Systems Review of Systems: Yes all other systems are reviewed and are negative PMFSH Past Medical History Medical History Diabetes type 2, controlled High cholesterol Surgical History H/O section H/O colonoscopy H/O: hysterectomy Social History Social History Alcohol intake: former Patient Tobacco Use Status: Never used Tobacco Smoked in Last 30 Days: No Use of substances other than those prescribed or required for medical reasons: No Advance Directives: Yes Advance Directives on File: Yes Advance Directives Date on File: 10/26/21 Current occupation: [employer] Physical Exam Vital Signs: Vital Signs: Last Vital Signs Temp 98.5 F 09/12/22 05:07 Pulse 60 09/12/22 05:07 Resp 11 L 09/12/22 05:07 BP 143/71 H 09/12/22 05:07 Pulse Ox 97 09/12/22 05:07 O2 Del Method Room Air 09/12/22 05:07 BMI result Body Mass Index 27.7 Appearance: Alert. Oriented X3. crying out in pain Head: normocephalic, atraumatic. Eyes: Pupils constricted, 2-3mm equal, round, minimally reactive ENT: Pharynx normal. No tonsillar swelling or exudate. Neck: Normal inspection. Neck supple. CVS: Normal heart rate and rhythm. Pulses normal. Respiratory: No respiratory distress. Breath sounds normal. Abdomen: Soft and nontender. +BS x4 Back: normal inspection, diffuse tenderness of the lumbar back bilaterally. mild midline tenderness as well Skin: Skin warm and dry. Normal skin color. Normal skin turgor. No rashes. Extremities: No lower extremity edema. No joint swelling. Neuro/psych: Oriented X 3. No motor deficit. No sensory deficit. CN II-XII intact. answering questions in bizarre manor intermittently, erractic movements. Moves all extremities, follows commands. unsteady gait Course Reevaluation(s) Reevaluation #1: patient awoken for re-evaluation after treatment of her pain with Toradol. Patient not arousable to verbal stimuli. When awoken to sternal rub patient reported that she cannot see, she has blurred vision. She wanted to get up and go to the bathroom but she was unsteady on her feet, required multiple staff members for assistance. Her lab workup was unremarkable. CT head ordered along with UA and Utox. Medical problem list includes dementia however son denies. Patient now vomiting and more confused. She states she drank a tea and took a pill when she was at her friend's house earlier today. Unknown substance. Time: 21:18 Reevaluation #2: patient sleeping comfortably. UA and Utox negative CT scans done, awaiting read Time: 23:11 Reevaluation #3: case d/w Hospialist Dr. Bardales who came to evaluate the patient for possible admission - she admitted to taking extra baclofen pill today prior to coming in. her behaviors have improved some. her vision is now back to baseline. will plan to d/c in the morning. physician observation started at this time. vss.plan to re-eval and dispo in the morning. Time: 00:44 Medications Administered Discontinued Medications Generic Name Dose Route Start Last Admin Trade Name Freq PRN Reason Stop Dose Admin Ketorolac Tromethamine 30 mg 09/11/22 18:49 09/11/22 19:28 Ketorolac Tromethamine 30 Mg/Ml Vial IM 09/11/22 18:50 30 mg ONCE ONE Administration Ondansetron HCl 4 mg 09/11/22 21:25 09/11/22 21:45 Ondansetron Hcl 4 Mg/2 Ml Vial IVPUSH 09/11/22 21:26 4 mg ONCE ONE Administration Medical Decision Making Medical Decision Making MDM Narrative: 67 yo [place] speaking female with history of chronic back pain DM 2, HLD, GERD, migraines, dementia, constipation who presents to the ER for evaluation of acute on chronic low back pain that started 5 days ago after she was sweeping. Exam and clinical presentation c/w lumbar strain vs sciatica which she has a history of. given IM toradol. During questioning patient appeared to be restless, dry mouth, pupils constricted. She was answering questions in odd manor. Reported only took baclofen [employer]. Denies opiate use. Stable respiratory status. Patient closely monitored. Patient with worsening alteration in mental status upon waking. c/o blurred vision and not being able to see anything. this is very different from her baseline per her son. concern for possible ingestion. case d/w hospitalist who evaluated the patient at the bedside but she improved. she admited to taking an extra bacolen. vision now back to baseline. will continue to observe and re-evaluate early AM for d/c home. Differential Diagnosis Differential Diagnoses: The differential diagnosis associated with the presentation includes Back pain most likely due to muscle strain/spasm, possible herniated disc. Inflammatory disorders, malignancy, trauma, osteoporosis, nerve root compression, radiculopathy, plexopathy, degenerative disc disease, spinal stenosis, sacroiliac joint dysfunction, facet joint injury, and less likely infection?like abscess or diskitis Encephalopathy most likely due to ingestion, less likely acute stroke, encephalitis, meningitis, tumor Admission/Observation Consideration of admission/observation: Escalation of care including admission/observation considered alteration in mental status, behavior change Consult Healthcare Provider Management of the patient was discussed with: Hospitalist Dr. Bardales Lab Data [facility] Lab Attestation statement: I reviewed the patient's lab results. 09/11/22 19:09 09/11/22 19:09 Labs: Lab Results 09/11/22 09/11/22 09/11/22 Range/Units 19:09 19:09 19:09 WBC 5.7 (4.8-10.8) X10*3/uL RBC 4.48 (4.20-5.50) X10*6/uL Hgb 13.9 (12.0-16.0) g/dl Hct 43.0 (37.0-47.0) % MCV 96.0 (80.0-98.0) fL MCH 31.0 (27.0-33.0) pg MCHC 32.3 (31.0-35.0) g/dl RDW 11.8 (11.0-16.0) % Plt Count 250 (160-400) X10*3/uL MPV 9.8 (9.4-12.3) fL Immature Gran % (Auto) 0.4 (0.0-0.4) % Neut % (Auto) 78.6 H (45-73) % Lymph % (Auto) 14.6 L (20-40) % [place] % (Auto) 4.8 (2-11) % Eos % (Auto) 1.2 (0-4) % Baso % (Auto) 0.4 (0-2) % Lymph # (Auto) 0.8 L (1.2-4.9) X10*3/uL [place] # (Auto) 0.3 (0.1-1.2) X10*3/uL Eos # (Auto) 0.1 (0.0-0.4) X10*3/uL Baso # (Auto) 0.0 (0.0-0.2) X10*3/uL Abs Immat Gran (auto) 0.02 (0.00-0.03) X10*3/uL Absolute Neuts (auto) 4.5 (2.0-8.3) x10*3/uL Absolute Nucleated RBC 0.000 (0.0-0.012) X10*3/uL Nucleated RBC % (auto) 0.0 (0.0-0.2) /100WBC ESR (0-20) MM/HR Sodium 141 (135-145) mmol/L Potassium 3.9 (3.3-5.1) mmol/L Chloride 110 H (96-108) mmol/L Carbon Dioxide 23 (22-29) mmol/L Anion Gap 12 (12-20) BUN 17 H (9-16) mg/dL Creatinine 0.76 (0.5-1.4) mg/dL Estim Creat Clear Calc 59.3 Estimated GFR > 60 Random Glucose 110 (60-115) mg/dL Calcium 9.4 D (8.4-10.2) mg/dL Magnesium 2.4 (1.6-2.6) mg/dL Total Bilirubin 0.4 (0.0-1.0) mg/dL Direct Bilirubin 0.1 (0.0-0.5) mg/dL AST 21 (5-31) U/L ALT 11 (0-31) U/L Alkaline Phosphatase 64 (39-117) U/L C-Reactive Protein 0.14 (< or = 0.50) mg/dL Total Protein 7.2 (6.5-8.0) g/dL Albumin 4.0 (3.5-5.0) g/dL Urine Color Urine Appearance Urine pH (5.0-9.0) Ur Specific [place] (1.005-1.025) Urine Protein (Neg-Trace) mg/dL Urine Glucose (UA) (Negative) mg/dL Urine Ketones (Negative) mg/dL Urine Blood (Negative) Urine Nitrite (Negative) Ur Leukocyte Esterase (Negative) Urine Opiates Screen (Not Detect) Urine Fentanyl Screen (Not Detect) Ur Barbiturates Screen (Not Detect) Ur Phencyclidine Scrn (Not Detect) Ur Amphetamines Screen (Not Detect) U Benzodiazepines Scrn (Not Detect) Urine Cocaine Screen (Not Detect) U Marijuana (THC) Screen (Not Detect) Ethyl Alcohol < 10 mg/dL 09/11/22 09/11/22 09/12/22 Range/Units 21:36 21:36 00:32 WBC (4.8-10.8) X10*3/uL RBC (4.20-5.50) X10*6/uL Hgb (12.0-16.0) g/dl Hct (37.0-47.0) % MCV (80.0-98.0) fL MCH (27.0-33.0) pg MCHC (31.0-35.0) g/dl RDW (11.0-16.0) % Plt Count (160-400) X10*3/uL MPV (9.4-12.3) fL Immature Gran % (Auto) (0.0-0.4) % Neut % (Auto) (45-73) % Lymph % (Auto) (20-40) % [place] % (Auto) (2-11) % Eos % (Auto) (0-4) % Baso % (Auto) (0-2) % Lymph # (Auto) (1.2-4.9) X10*3/uL [place] # (Auto) (0.1-1.2) X10*3/uL Eos # (Auto) (0.0-0.4) X10*3/uL Baso # (Auto) (0.0-0.2) X10*3/uL Abs Immat Gran (auto) (0.00-0.03) X10*3/uL Absolute Neuts (auto) (2.0-8.3) x10*3/uL Absolute Nucleated RBC (0.0-0.012) X10*3/uL Nucleated RBC % (auto) (0.0-0.2) /100WBC ESR 13 (0-20) MM/HR Sodium (135-145) mmol/L Potassium (3.3-5.1) mmol/L Chloride (96-108) mmol/L Carbon Dioxide (22-29) mmol/L Anion Gap (12-20) BUN (9-16) mg/dL Creatinine (0.5-1.4) mg/dL Estim Creat Clear Calc Estimated GFR Random Glucose (60-115) mg/dL Calcium (8.4-10.2) mg/dL Magnesium (1.6-2.6) mg/dL Total Bilirubin (0.0-1.0) mg/dL Direct Bilirubin (0.0-0.5) mg/dL AST (5-31) U/L ALT (0-31) U/L Alkaline Phosphatase (39-117) U/L C-Reactive Protein (< or = 0.50) mg/dL Total Protein (6.5-8.0) g/dL Albumin (3.5-5.0) g/dL Urine Color Yellow Urine Appearance Clear Urine pH 7.0 (5.0-9.0) Ur Specific [place] <= 1.005 (1.005-1.025) Urine Protein Negative (Neg-Trace) mg/dL Urine Glucose (UA) Negative (Negative) mg/dL Urine Ketones Negative (Negative) mg/dL Urine Blood Negative (Negative) Urine Nitrite Negative (Negative) Ur Leukocyte Esterase Negative (Negative) Urine Opiates Screen Not Detected (Not Detect) Urine Fentanyl Screen Not Detected (Not Detect) Ur Barbiturates Screen Not Detected (Not Detect) Ur Phencyclidine Scrn Not Detected (Not Detect) Ur Amphetamines Screen Not Detected (Not Detect) U Benzodiazepines Scrn Not Detected (Not Detect) Urine Cocaine Screen Not Detected (Not Detect) U Marijuana (THC) Screen Not Detected (Not Detect) Ethyl Alcohol mg/dL Independent Interpretation I performed an independent interpretation of an: CT Scan Interpretation: CT head without acute bleed or edema CT abd without kidney stone or obstruction, agree w/ radiology reads Radiology Impression Discussion of test interpretation with radiology: I have reviewed the radiologist's reading. Radiologist Impression: ?CT/CT abdomen pelvis wo IV con IMPRESSION: Limited examination due to motion and lack of IV contrast. 1.? No acute intra-abdominal or pelvic abnormalities to explain the patient's symptoms. 2.? Moderate degree of stool in the colon and rectum suggesting constipation. ?CT/CT head/brain wo IV con IMPRESSION: 1.? Age indeterminate small hypodensities in the right anterior striatocapsular region, new compared to most recent prior from 10/02/2019. Further evaluation with an MR of the brain could be obtained as clinically indicated. 2.? No evidence of acute intracranial hemorrhage or edematous territorial infarction. Independent Historian Clinical information obtained from an independent historian. History obtained from or confirmed by: Other (adult son at the bedside) External Record Review External record reviewed: Office record, Outpatient record, Prior outpatient labs and Prior outpatient radiology Tests considered The following testing was considered but not selected: MRI brain Chronic Conditions Patient?s care impacted by: Hypertension and Other (DM2, chronic back pain) Critical Care Time Critical Care Time Critical Care Time: Yes Total Critical Care Time: 41 Attestation: I have personally provided critical care time exclusive of time spent on separately billable procedures. Time includes review of lab data, radiology results, discussion with consultants, and monitoring for potential decompensation. Intervention performed as documented. Discharge Plan Discharge Clinical Impression: Strain of lumbar region, Acute encephalopathy Patient Disposition: Still a Patient Instructions: Low Back Strain (ED), Lower Back Exercises (ED) Additional Instructions: do not take extra prescription pills, only take medications as directed by the provider follow up with your doctor If you develop new or worsening symptoms call 911 or come back to the ER for further evaluation. Prescriptions: No Action atorvastatin 40 mg tablet 1 tab PO DAILY ibuprofen 800 mg tablet 1 tab PO TID PRN (Reason: Pain) melatonin 3 mg tablet 1 tab PO BEDTIME baclofen 20 mg tablet 1 tab PO TID bisacodyl [Dulcolax (bisacodyl)] 5 mg tablet,delayed release (DR/EC) 10 mg PO BEDTIME 30 Days Qty: 60 3RF Hold Instructions: Doctor's Order famotidine [Pepcid] 40 mg tablet 40 mg PO BEDTIME Qty: 30 11RF simethicone 180 mg capsule 180 mg PO BID 30 Days Qty: 60 6RF Rx Instructions: after meals cetirizine 10 mg tablet 10 mg PO DAILY alendronate 70 mg tablet 70 mg PO QWEEK (DME) lancets [TRUEplus Lancets] 33 gauge misc See Rx Instructions .ROUTE BID Qty: 100 Rx Instructions: As directed (DME) FreeStyle Lite Strips Strip See Rx Instructions .ROUTE BID Qty: 10 Rx Instructions: As directed diclofenac sodium 1 % gel 2 g topical QID polyethylene glycol 3350 [Miralax] 17 gram/dose powder 17 g PO DAILY 30 Days Qty: 510 11RF Hold Instructions: Doctor's Order amlodipine 2.5 mg tablet 2.5 mg PO DAILY Linzess 145 mcg capsule 145 mcg PO QAM Qty: 30 3RF
--- NOTE | 2022-09-11 18:46 | PC.NURSE ---
pt pupils appear to be constricted and unreactive to light. pt's eyes also dark so difficult to see. raffi rudd aware.
[2022-09-11 19:11] VITALS: BP 171/80; PULSE 69; RESP 20; TEMP 36.9; O2SAT 98
[2022-09-11 19:23] LABS: MANUAL DIFF FLAG NO
[2022-09-11 19:24] LABS: Basophils Percent Auto 0.4 % (0-2); Eosinophils Absolute Auto 0.1 X10*3/uL (0.0-0.4); Eosinophils Percent Auto 1.2 % (0-4); Hemoglobin 13.9 g/dl (12.0-16.0); Imm Gran Abs Auto 0.02 X10*3/uL (0.00-0.03); Imm Gran Pct Auto 0.4 % (0.0-0.4); Lymphocytes Absolute Auto 0.8 X10*3/uL (1.2-4.9); Lymphocytes Percent Auto 14.6 % (20-40); Mean Corpuscular HGB Conc 32.3 g/dl (31.0-35.0); Mean Platelet Volume 9.8 fL (9.4-12.3); Monocytes Absolute Auto 0.3 X10*3/uL (0.1-1.2); Monocytes Percent Auto 4.8 % (2-11); Neutrophils Absolute Auto 4.5 x10*3/uL (2.0-8.3); Neutrophils Percent Auto 78.6 % (45-73); Platelet Count 250 X10*3/uL (160-400); Red Blood Count 4.48 X10*6/uL (4.20-5.50); Red Cell Distribution Width 11.8 % (11.0-16.0); White Blood Count 5.7 X10*3/uL (4.8-10.8)
[2022-09-11] MEDS: Ketorolac Tromethamine 30 MG/ML VIAL IM (19:28)
[2022-09-11 19:46] LABS: Alanine Aminotransferase 11 U/L (0-31); Alkaline Phosphatase 64 U/L (39-117); Anion Gap 12 (12-20); Aspartate Amino Transferase 21 U/L (5-31); Bilirubin Direct 0.1 mg/dL (0.0-0.5); Bilirubin Total 0.4 mg/dL (0.0-1.0); Blood Urea Nitrogen 17 mg/dL (9-16); Calcium 9.4 mg/dL (8.4-10.2); Carbon Dioxide 23 mmol/L (22-29); Chloride 110 mmol/L (96-108); Creatinine Clr Calc Pharmacy 59.3; Estimated Glomerular Filt Rate > 60; Ethanol < 10 mg/dL; Glucose Random 110 mg/dL (60-115); Magnesium 2.4 mg/dL (1.6-2.6); Potassium 3.9 mmol/L (3.3-5.1); Sodium 141 mmol/L (135-145); Total Protein 7.2 g/dL (6.5-8.0)
--- NOTE | 2022-09-11 20:10 | PC.NURSE ---
this rn assumed care of pt @ 1900. pt awake for placement of surveillance monitor and medication administration. back to sleep before this rn left bedside. awaiting lab results
[2022-09-11 21:37] VITALS: PULSE 82; RESP 20; O2SAT 99
[2022-09-11] MEDS: ondansetron HCL 4 MG/2 ML VIAL IVPUSH (21:45)
[2022-09-11 21:48] VITALS: BP 175/79; PULSE 75; RESP 18; O2SAT 98
--- NOTE | 2022-09-11 22:00 | PC.NURSE ---
per tobin nugent orders pt woke up to get urine sample. pt unsteady on feet. per pt son who was at bedside this is not pt's baseline. this rn and two ed techs assisted pt to restroom. urine sample obtained. pt brought back to bed. pt unable to get into bed on own. pt changed into hospital gown. iv line placed 22g L AC. pt medicated according to mar for nausea
[2022-09-11 22:08] LABS: Appearance Urine Clear; Color Urine Yellow; Glucose Urine UA Negative (Negative); Leukocyte Esterase Urine Negative (Negative); Nitrite Urine Negative (Negative); Specific Gravity - Urine <= 1.005 (1.005-1.025); Urine Blood Negative (Negative); Urine Ketones Negative (Negative); Urine Protein Negative (Neg-Trace)
[2022-09-11 22:16] LABS: Amphetamine Screen Urine Not Detected (Not Detect); Barbiturates, Urine Not Detected (Not Detect); Benzodiazepines Screen Urine Not Detected (Not Detect); Cannabinoid Screen Urine Not Detected (Not Detect); Cocaine Screen Urine Not Detected (Not Detect); Fentanyl, urine Not Detected (Not Detect); Opiate Screen Urine Not Detected (Not Detect); Phencyclidine Screen Urine Not Detected (Not Detect)
[2022-09-11 23:51] VITALS: BP 135/65; PULSE 63; RESP 16; TEMP 36.4; O2SAT 97
--- NOTE | 2022-09-11 23:52 | MHC.EDTECH ---
This tech assumed care of pt at 2300, VS taken, call diego with reach, pt sleeping peacefully.
[2022-09-12 00:13] LABS: C Reactive Protein 0.14 mg/dL (< or = 0.50)
[2022-09-12 01:14] LABS: Erythrocyte Sedimentation Rate 13 MM/HR (0-20)
[2022-09-12 05:07] VITALS: BP 143/71; PULSE 60; RESP 11; TEMP 36.9; O2SAT 97
--- NOTE | 2022-09-12 07:01 | PC.NURSE ---
pt refused to sign discharge instructions pt provided discharge instructions with educational sign language interpreter at bedside.this rn made oncoming rn aware. iv remains in place per request of oncoming rn
== END 2022-09-12 07:49 | disposition home or self-care (01) ==
PROVIDERS: Physician Assistant; Emergency Provider Internal Medicine
DX: S39.012A Strain of muscle, fascia and tendon of lower back, initial encounter (principal); X50.3XXA Overexertion from repetitive movements, initial encounter; G93.40 Encephalopathy, unspecified; H53.8 Other visual disturbances; E11.9 Type 2 diabetes mellitus without complications; E78.5 Hyperlipidemia, unspecified; Z79.02 Long term (current) use of antithrombotics/antiplatelets; Z79.899 Other long term (current) drug therapy; Y93.E5 Activity, floor mopping and cleaning; Y92.039 Unspecified place in apartment as the place of occurrence of the external cause; Y99.9 Unspecified external cause status
CPT/HCPCS: 36415; 70450; 74176; 80048; 80076; 80307; 81003; 83735; 85025; 85652; 86140; 96372; 96374; 99284; 99285; J1885; J2405

== ENCOUNTER 2023-01-14 08:15 | Outpatient (REF) | payer OTHER, SELFPAY ==
[2023-01-14 11:29] LABS: Estimated Average Glucose 126 mg/dL
[2023-01-14 11:45] LABS: Anion Gap 12 (12-20); Blood Urea Nitrogen 12 mg/dL (9-16); Calcium 9.6 mg/dL (8.4-10.2); Carbon Dioxide 28 mmol/L (22-29); Chloride 108 mmol/L (96-108); Cholesterol 258 mg/dL (<200); Estimated Glomerular Filt Rate > 60; Glucose Random 107 mg/dL (60-115); HDL Cholesterol 59 mg/dL (>40); LDL Cholesterol Calculated 181 mg/dL (<100); Potassium 4.9 mmol/L (3.3-5.1); Sodium 143 mmol/L (135-145); Triglycerides 90 mg/dL (<150)
[2023-01-14 12:44] LABS: Creatinine Urine 79.19 mg/dL; Microalbum/Creatinine Ratio Ur 8.8 ug/mg cr (<30)
== END 2023-01-14 08:16 | disposition home or self-care (01) ==
LOC: HO.HHCL 08:15
PROVIDERS: Visit Provider Internal Medicine
DX: E11.9 Type 2 diabetes mellitus without complications (principal); I10 Essential (primary) hypertension
CPT/HCPCS: 36415; 80048; 80061; 82043; 82570; 83036

== ENCOUNTER 2023-02-07 14:31 | Outpatient (REF) | payer OTHER, SELFPAY ==
[2023-02-07 16:04] LABS: MANUAL DIFF FLAG NO
[2023-02-07 16:21] LABS: Basophils Percent Auto 0.5 % (0-2); Eosinophils Absolute Auto 0.3 X10*3/uL (0.0-0.4); Eosinophils Percent Auto 3.9 % (0-4); Hemoglobin 13.4 g/dl (12.0-16.0); Imm Gran Abs Auto 0.02 X10*3/uL (0.00-0.03); Imm Gran Pct Auto 0.3 % (0.0-0.4); Lymphocytes Absolute Auto 1.5 X10*3/uL (1.2-4.9); Lymphocytes Percent Auto 22.7 % (20-40); Mean Corpuscular HGB Conc 31.2 g/dl (31.0-35.0); Mean Corpuscular Hemoglobin 31.1 pg (27.0-33.0); Mean Corpuscular Volume 99.8 fL (80.0-98.0); Mean Platelet Volume 10.2 fL (9.4-12.3); Monocytes Absolute Auto 0.5 X10*3/uL (0.1-1.2); Monocytes Percent Auto 8.3 % (2-11); Neutrophils Absolute Auto 4.2 x10*3/uL (2.0-8.3); Neutrophils Percent Auto 64.3 % (45-73); Platelet Count 313 X10*3/uL (160-400); Red Blood Count 4.31 X10*6/uL (4.20-5.50); Red Cell Distribution Width 11.5 % (11.0-16.0); White Blood Count 6.5 X10*3/uL (4.8-10.8)
[2023-02-07 16:33] LABS: Alanine Aminotransferase 12 U/L (0-31); Albumin Level 4.2 g/dL (3.5-5.0); Alkaline Phosphatase 75 U/L (39-117); Amylase 67 U/L (28-100); Anion Gap 9 (12-20); Aspartate Amino Transferase 23 U/L (5-31); Bilirubin Total 0.3 mg/dL (0.0-1.0); Blood Urea Nitrogen 17 mg/dL (9-16); Carbon Dioxide 27 mmol/L (22-29); Chloride 111 mmol/L (96-108); Estimated Glomerular Filt Rate > 60; Glucose Random 88 mg/dL (60-115); Lipase 32 U/L (8-78); Sodium 142 mmol/L (135-145); Total Protein 7.3 g/dL (6.5-8.0)
== END 2023-02-07 14:32 | disposition home or self-care (01) ==
LOC: HO.HHCL 14:31
PROVIDERS: Visit Provider Student in an Organized Health Care Education/Training Program
DX: R10.10 Upper abdominal pain, unspecified (principal)
CPT/HCPCS: 36415; 80053; 82150; 83690; 85025

== ENCOUNTER 2023-03-13 07:35 | Outpatient (REF) | payer OTHER, SELFPAY ==
--- NOTE | ~2023-03-13 | US_ITS ---
EXAMINATION: US ABDOMEN COMPLETE CLINICAL INFORMATION: Ongoing epigastric pain, umbilical pain, left upper quadrant pain. COMPARISON: CT abdomen and pelvis 09/11/2022. X-ray KUB 07/07/2022. Ultrasound abdomen complete 04/19/2013. TECHNIQUE: Real-time imaging of the abdominal viscera. FINDINGS: PANCREAS: Normal head and body, the tail is obscured by bowel gas. ABDOMINAL AORTA: The proximal, mid, and distal segments are normal in caliber. Atherosclerotic plaque is seen within the abdominal aorta. INFERIOR VENA CAVA: Visualized portions are normal. LIVER: Normal. The liver is normal in size. The liver contour is normal. Parenchymal echogenicity is normal. No focal hepatic lesion. There is no intrahepatic biliary duct dilatation seen. GALLBLADDER: Normal. The gallbladder is physiologically distended without evidence of stones, sludge, polyps, wall thickening or pericholecystic fluid. COMMON BILE DUCT: Normal in caliber measuring 0.2 cm in diameter. RIGHT KIDNEY: 0.7 x 0.7 x 0.8 cm simple cyst is seen in the mid kidney. No imaging follow-up is recommended. No hydronephrosis or renal calculi. The kidney measures 9.9 cm in maximum dimension. LEFT KIDNEY: Normal. No hydronephrosis. No renal calculi or focal parenchymal lesions. The kidney measures 10.2 cm in maximum dimension. SPLEEN: Normal. The spleen measures 8.7 cm in maximum dimension. FREE FLUID: None. US/US abdomen complete IMPRESSION: Atherosclerosis of the abdominal aorta. No other significant finding.
== END 2023-03-13 07:36 | disposition home or self-care (01) ==
LOC: HO.US 07:35
PROVIDERS: PCP Internal Medicine; Visit Provider Student in an Organized Health Care Education/Training Program
DX: R10.10 Upper abdominal pain, unspecified (principal)
CPT/HCPCS: 76700

== ENCOUNTER 2023-04-09 13:32 | Outpatient (AMB) | payer OTHER, SELFPAY ==
--- NOTE | 2023-04-09 13:34 | MHC.OFFVIS ---
Intake Vital Signs 04/09/23 13:55 Height 4 ft 11 in Weight 145 lb BMI 29.3 BP 126/68 Blood Pressure Location Lt brachial Position Sitting Pulse 79 Intake Visit Reasons: 6 mnth follow up Intake Note: Patient presents to in office visit in 6 months follow up of abdominal pain. CC: Patient c/o abdominal bloating and GERD worst at night. Patient not too sure about what medications. Information Engineer Required: Yes Accompanied by: Self / Same As Patient Allergies tramadol Allergy (Severe, Verified 04/09/23 13:58) Hallucinations morphine Allergy (Intermediate, Verified 04/09/23 13:58) Hallucinations HPI 6 mnth follow up HPI Details Assessment & Plan (1) Chronic idiopathic constipation: Code(s): K59.04 - Chronic idiopathic constipation Plan: SAMOAN #Telma Bailon She is feeling quite well since we increased her LInzess to 145mcg. famotidine and simethicone This has also resolved all of her abd pain. Her only problem now is that she has a pinched nerve in her back and is in a lot of pain. She is on 800mg ibuprofen for this now, I advise her that if this bothers her stomach she should call me and we will escalate her famotidine. She is agreeable to a 6 mos follow up. (2) GERD (gastroesophageal reflux disease): Code(s): K21.9 - Gastro-esophageal reflux disease without esophagitis (3) Dementia: Code(s): F03.90 - Unspecified dementia, unspecified severity, without behavioral disturbance, psychotic disturbance, mood disturbance, and anxiety (4) Abdominal bloating: Code(s): R14.0 - Abdominal distension (gaseous) TODAY'S VISIT SAMOAN Familia Bailon I ask of her medication just still working and she says that they are. However then she says in the same breath that she has pain in her stomach ?all the time. ? She also tells me they did study and they found something wrong in my belly. I look at it appears there was an ultrasound ordered by [facility] that shows arthrosclerotic disease of the aorta but no other pathology. I ask her what changed between the last time I saw her now since before the medications were completely controlling her pain. After a long discussion we find out that she has no longer taking the Linzess, apparently she ran out, and she also ran out of the famotidine. It has a shame she can come to our office as it would have spare her a trip to the walk-in clinic and unnecessary ultrasound. They also put her on omeprazole for a short time which was somewhat helpful but of course did not solve the whole problem. I wrote down the names of the famotidine and the Linzess and I want to make sure she has these at home. She also still has simethicone at home for bloating. Return office visit in 4 weeks to evaluate how she is responding. 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 Review of Systems Const Denies fatigue, Denies fever(s), Denies night sweats, Denies poor appetite and Denies weight loss Eyes Details: glasses Reports requires corrective lenses ENT Reports Normal hearing present, Denies dysphagia, Denies odynophagia, Denies throat swelling and Denies tongue swelling Card Reports no additional complaints Resp Reports no additional complaints GI Reports abdominal pain, Denies melena, Denies bloating, Denies hematochezia, Reports constipation, Denies GI cramping, Denies dysphagia, Denies excessive flatus, Denies early satiety, Reports heartburn, Denies diarrhea, Denies nausea, Denies odynophagia, Denies vomiting and Denies hematemesis Skin/Breast Denies pruritus, Denies lesions, Denies rash and Denies jaundice Neuro Reports Normal hearing present, Denies Abnormal speech present and Reports memory loss Psych Reports memory loss Endo Denies fatigue Aller/Immun Denies throat swelling and Denies tongue swelling Physical Exam Vital Signs: Last Vital Signs Pulse 79 04/09/23 13:55 BP 126/68 04/09/23 13:55 BMI result Body Mass Index 29.3 Const General: cooperative, no acute distress, well developed and well groomed Nutritional Appearance: well nourished and obese Orientation/consciousness: oriented to person, oriented to place and oriented to time Limitations: language barrier HEENT Head: Yes normocephalic and Yes atraumatic Eyes General: appearance normal, both eyes and all related structures Pupils: Equal, round and reactive pupils present Neck Neck: Yes normal visual inspection and Yes no lymphadenopathy Thyroid: Thyroid normal Resp Effort & Inspection: normal respiratory effort and able to speak in complete sentences Auscultation: clear to auscultation bilaterally Cardio Rate: regular rate Rhythm: regular rhythm Heart sounds: Normal, physiologic split S2 sound present Peripheral pulses: radial pulses present and posterior tibial pulses present GI Inspection: No distended, Yes Abdominal panniculus present and Yes obesity Palpation (GI): Soft to palpation, nontender, no guarding, not rigid and No hepatosplenomegaly present Percussion: Yes normal to percussion Auscultation: normal bowel sounds Rectal Exam - Female: deferred Skin General skin exam: no rashes or lesions noted, turgor normal, skin not dry, no jaundice, No spider nevi and no striae Rashes: no rashes Nails: normal Neuro General: oriented to person, oriented to place and oriented to time Cranial nerves: Yes Equal, round and reactive pupils present and Yes Normal hearing present Speech: No Abnormal speech present Extrem General: Yes normal to inspection, No clubbing, No cyanosis and No edema Psych Appearance: grossly normal and well kempt Mental Status: mental status grossly normal and other Speech and movement: Normal speech and movement present Affect: normal affect Attitude: cooperative Thought process: Circumstantial thought process present and not confabulating Thought content: Normal thought content present Insight: Poor insight present (Psych) Judgement: Poor judgement present (Psych) Assessment & Plan Assessment & Plan (1) Chronic idiopathic constipation: Code(s): K59.04 - Chronic idiopathic constipation (2) Abdominal bloating: Code(s): R14.0 - Abdominal distension (gaseous) (3) GERD (gastroesophageal reflux disease): Code(s): K21.9 - Gastro-esophageal reflux disease without esophagitis (4) Dementia: Code(s): F03.90 - Unspecified dementia, unspecified severity, without behavioral disturbance, psychotic disturbance, mood disturbance, and anxiety Plan SAMOAN #Evelyn Live I ask of her medication just still working and she says that they are. However then she says in the same breath that she has pain in her stomach ?all the time. ? She also tells me they did study and they found something wrong in my belly. I look at it appears there was an ultrasound ordered by [facility] that shows arthrosclerotic disease of the aorta but no other pathology. I ask her what changed between the last time I saw her now since before the medications were completely controlling her pain. After a long discussion we find out that she has no longer taking the Linzess, apparently she ran out, and she also ran out of the famotidine. It has a shame she can come to our office as it would have spare her a trip to the walk-in clinic and unnecessary ultrasound. They also put her on omeprazole for a short time which was somewhat helpful but of course did not solve the whole problem. I wrote down the names of the famotidine and the Linzess and I want to make sure she has these at home. She also still has simethicone at home for bloating. Return office visit in 4 weeks to evaluate how she is responding. Medications: Changed From linaclotide (Linzess) 145 mcg PO DAILY K59.04 - Chronic idiopathic constipation To linaclotide (Linzess) 145 mcg PO DAILY 30 days 30 caps 6RF K59.04 - Chronic idiopathic constipation Refilled famotidine (Pepcid) 40 mg PO BEDTIME 90 days 90 tabs 3RF K21.9 - Gastro-esophageal reflux disease without esophagitis simethicone after meals 180 mg PO BID 30 days 60 caps 6RF R14.0 - Abdominal distension (gaseous) Coding Level of Care Code Est Pt Level 3 (23039) Diagnoses Chronic idiopathic constipation K59.04 Abdominal bloating R14.0 GERD (gastroesophageal reflux disease) K21.9 Dementia F03.90
[2023-04-09 13:55] VITALS: BP 126/68; PULSE 79; BMI 29.3
== END 2023-04-09 14:24 | disposition home or self-care (01) ==
PROVIDERS: PCP Internal Medicine; Visit Provider Nurse Practitioner
DX: K59.04 Chronic idiopathic constipation (principal); R14.0 Abdominal distension (gaseous); K21.9 Gastro-esophageal reflux disease without esophagitis; F03.90 Unspecified dementia, unspecified severity, without behavioral disturbance, psychotic disturbance, mood disturbance, and anxiety
CPT/HCPCS: 99213

== ENCOUNTER → 2023-04-09 13:32 | Outpatient (BNVA) | payer OTHER, SELFPAY | PROVIDERS: PCP Internal Medicine; Visit Provider Nurse Practitioner | DX: K59.04 Chronic idiopathic constipation (principal); R14.0 Abdominal distension (gaseous); K21.9 Gastro-esophageal reflux disease without esophagitis; F03.90 Unspecified dementia, unspecified severity, without behavioral disturbance, psychotic disturbance, mood disturbance, and anxiety | CPT/HCPCS: 99212 ==

== ENCOUNTER 2023-05-07 13:29 | Outpatient (AMB) | payer OTHER, SELFPAY ==
[2023-05-07 13:37] VITALS: BP 116/67; PULSE 86; BMI 29.9
--- NOTE | 2023-05-07 13:37 | MHC.OFFVIS ---
Intake Vital Signs 05/07/23 13:37 Height 4 ft 11 in Weight 148 lb BMI 29.9 BP 116/67 Blood Pressure Location Lt brachial Position Sitting Pulse 86 Intake Visit Reasons: 4 week follow up Intake Note: Patient presents to in office visit in 4 weeks follow up of GERD and constipation.. CC: Patient c/o abdominal bloating and abdominal pain. Denies other GI symptoms. 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 Accompanied by: Self / Same As Patient Allergies tramadol Allergy (Severe, Verified 05/07/23 13:52) Hallucinations morphine Allergy (Intermediate, Verified 05/07/23 13:52) Hallucinations HPI 4 week follow up HPI Details Assessment & Plan (1) Chronic idiopathic constipation: Code(s): K59.04 - Chronic idiopathic constipation (2) Abdominal bloating: Code(s): R14.0 - Abdominal distension (gaseous) (3) GERD (gastroesophageal reflux disease): Code(s): K21.9 - Gastro-esophageal reflux disease without esophagitis (4) Dementia: Code(s): F03.90 - Unspecified dementia, unspecified severity, without behavioral disturbance, psychotic disturbance, mood disturbance, and anxiety Plan [place] #Evelyn Live I ask of her medication just still working and she says that they are. However then she says in the same breath that she has pain in her stomach ?all the time. ? She also tells me they did study and they found something wrong in my belly. I look at it appears there was an ultrasound ordered by [facility] that shows arthrosclerotic disease of the aorta but no other pathology. I ask her what changed between the last time I saw her now since before the medications were completely controlling her pain. After a long discussion we find out that she has no longer taking the Linzess, apparently she ran out, and she also ran out of the famotidine. It has a shame she can come to our office as it would have spare her a trip to the walk-in clinic and unnecessary ultrasound. They also put her on omeprazole for a short time which was somewhat helpful but of course did not solve the whole problem. I wrote down the names of the famotidine and the Linzess and I want to make sure she has these at home. She also still has simethicone at home for bloating. Return office visit in 4 weeks to evaluate how she is responding. Medications: Changed From linaclotide (Linze ss) 145 mcg PO DAILY K59.04 - Chronic i diopathic constipa tion To linaclotide (Linze ss) 145 mcg PO DAILY 30 days 30 caps 6R F K59.04 - Chronic i diopathic constipa tion Refilled famotidine (Pepcid ) 40 mg PO BEDTIME 90 days 90 tabs 3R F K21.9 - Gastro-eso phageal reflux dis ease without esoph agitis simethicone aft er meals 180 mg PO BID 30 days 60 caps 6RF R14.0 - Abdominal distension (gaseou s) TODAY'S VISIT [place] ISLANDER #Rita Bailon She tells me that she does have all the medications and is a little bit better but still has quite a bit of bloating. However, she does tell me that she moves her bowels every day but only a little bit of stooling comes out. Sounds like the constipation is not controlled anymore so will increase her Linzess 145 micro g 290 micro g and evaluate its affect. She continues on famotidine and simethicone twice a day. Return office visit in 4 weeks. 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 Review of Systems Const Denies fatigue, Denies fever(s), Denies night sweats, Denies poor appetite and Denies weight loss Eyes Details: glasses Reports requires corrective lenses ENT Reports Normal hearing present, Denies dental pain, Denies dysphagia, Denies hearing loss, Denies mouth pain, Denies odynophagia, Denies throat swelling, Denies tongue swelling and Reports other (Dentition adequate) Card Reports no additional complaints Resp Reports no additional complaints GI Details: Denies abdominal pain, Denies melena, Reports bloating, Denies hematochezia, Reports constipation, Denies GI cramping, Denies dysphagia, Denies excessive flatus, Denies early satiety, Reports heartburn, Denies diarrhea, Denies nausea, Denies odynophagia, Denies vomiting and Denies hematemesis Skin/Breast Denies pruritus, Denies lesions, Denies rash and Denies jaundice Neuro Reports Normal hearing present and Denies Abnormal speech present Endo Denies fatigue Aller/Immun Denies throat swelling and Denies tongue swelling Physical Exam Vital Signs: Last Vital Signs Pulse 86 05/07/23 13:37 BP 116/67 05/07/23 13:37 BMI result Body Mass Index 29.9 Const General: cooperative, no acute distress, well developed and well groomed Nutritional Appearance: well nourished and obese Orientation/consciousness: oriented to person, oriented to place and oriented to time Limitations: language barrier HEENT Head: Yes normocephalic and Yes atraumatic Eyes General: appearance normal, both eyes and all related structures Pupils: Equal, round and reactive pupils present Neck Neck: Yes normal visual inspection and Yes no lymphadenopathy Thyroid: Thyroid normal Resp Effort & Inspection: normal respiratory effort and able to speak in complete sentences Auscultation: clear to auscultation bilaterally Cardio Rate: regular rate Rhythm: regular rhythm Heart sounds: Normal, physiologic split S2 sound present Peripheral pulses: radial pulses present and posterior tibial pulses present GI Inspection: Yes distended, No Abdominal panniculus present and Yes obesity Palpation (GI): Soft to palpation, nontender, no guarding, not rigid and No hepatosplenomegaly present Percussion: Yes normal to percussion Auscultation: normal bowel sounds Rectal Exam - Female: deferred Skin General skin exam: no rashes or lesions noted, turgor normal, skin not dry, no jaundice, No spider nevi and no striae Rashes: no rashes Nails: normal Neuro General: oriented to person, oriented to place and oriented to time Cranial nerves: Yes Equal, round and reactive pupils present and Yes Normal hearing present Speech: No Abnormal speech present Extrem General: Yes normal to inspection, No clubbing, No cyanosis and No edema Psych Appearance: grossly normal and well kempt Mental Status: mental status grossly normal Speech and movement: Normal speech and movement present Affect: normal affect Attitude: cooperative Thought process: Normal thought process present and not confabulating Thought content: Normal thought content present Insight: Limited insight present (Psych) Judgement: Limited judgement present (Psych) Assessment & Plan Assessment & Plan (1) Chronic idiopathic constipation: Code(s): K59.04 - Chronic idiopathic constipation (2) Abdominal bloating: Code(s): R14.0 - Abdominal distension (gaseous) (3) GERD (gastroesophageal reflux disease): Code(s): K21.9 - Gastro-esophageal reflux disease without esophagitis (4) Dementia: Code(s): F03.90 - Unspecified dementia, unspecified severity, without behavioral disturbance, psychotic disturbance, mood disturbance, and anxiety (5) Nausea: Code(s): R11.0 - Nausea Plan [place] #Rita Bailon She tells me that she does have all the medications and is a little bit better but still has quite a bit of bloating. However, she does tell me that she moves her bowels every day but only a little bit of stooling comes out. Sounds like the constipation is not controlled anymore so will increase her Linzess 145 micro g 290 micro g and evaluate its affect. She continues on famotidine and simethicone twice a day. Return office visit in 4 weeks. Medications: New linaclotide (Linzess) Take 1st thing in the morning with a full glass of water 290 mcg PO QAM 30 days 30 caps 6RF K59.04 - Chronic idiopathic constipation On Hold linaclotide (Linzess) Hold Comment: Doctor's Order 145 mcg PO DAILY 30 days 30 caps 6RF K59.04 - Chronic idiopathic constipation Coding Level of Care Code Est Pt Level 3 (93571) Diagnoses Chronic idiopathic constipation K59.04 Abdominal bloating R14.0 GERD (gastroesophageal reflux disease) K21.9 Dementia F03.90 Nausea R11.0
== END 2023-05-07 14:08 | disposition home or self-care (01) ==
PROVIDERS: PCP Internal Medicine; Visit Provider Nurse Practitioner
DX: K59.04 Chronic idiopathic constipation (principal); R14.0 Abdominal distension (gaseous); K21.9 Gastro-esophageal reflux disease without esophagitis; F03.90 Unspecified dementia, unspecified severity, without behavioral disturbance, psychotic disturbance, mood disturbance, and anxiety; R11.0 Nausea
CPT/HCPCS: 99213

== ENCOUNTER → 2023-05-07 13:29 | Outpatient (BNVA) | payer OTHER, SELFPAY | PROVIDERS: PCP Internal Medicine; Visit Provider Nurse Practitioner | DX: K59.04 Chronic idiopathic constipation (principal); K21.9 Gastro-esophageal reflux disease without esophagitis; R14.0 Abdominal distension (gaseous); R11.0 Nausea; F03.90 Unspecified dementia, unspecified severity, without behavioral disturbance, psychotic disturbance, mood disturbance, and anxiety | CPT/HCPCS: 99212 ==

== ENCOUNTER 2023-06-04 13:31 | Outpatient (AMB) | payer OTHER, SELFPAY ==
--- NOTE | 2023-06-04 13:34 | A.OFFVIS_ITS ---
Intake Vital Signs 06/04/23 13:38 Height 4 ft 11 in Weight 150 lb 5.684 oz BMI 30.4 BP 138/62 Blood Pressure Location Rt brachial Position Sitting Pulse 69 Pulse Source Pulse Oximeter Intake Visit Reasons: 4 week follow up Intake Note: Pt presents to the office today for a 4 week follow up for abdominal bloating. 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 Proof Machine Operator Supervisor Name: Kirby [id number] Accompanied by: Self / Same As Patient Allergies tramadol Allergy (Severe, Verified 06/04/23 13:43) Hallucinations morphine Allergy (Intermediate, Verified 06/04/23 13:43) Hallucinations HPI 4 week follow up HPI Details ssessment & Plan (1) Chronic idiopathic constipation: Code(s): K59.04 - Chronic idiopathic constipation (2) Abdominal bloating: Code(s): R14.0 - Abdominal distension (gaseous) (3) GERD (gastroesophageal reflux diseas e): Code(s): K21.9 - Gastro-esophageal reflux disease without esophagitis (4) Dementia: Code(s): F03.90 - Unspecified dementia, unspecified severity, without behavioral disturbance, psychotic disturbance, mood disturbance, and anxiety (5) Nausea: Code(s): R11.0 - Nausea Plan CAMBODIAN #Rita Live She tells me that she does have all the medications and is a little bit better but still has quite a bit of bloating. However, she does tell me that she moves her bowels every day but only a little bit of stooling comes out. Sounds like the constipation is not controlled anymore so will increase her Linzess 145 micro g 290 micro g and evaluate its affect. She continues on famotidine and simethicone twice a day. Return office visit in 4 weeks. Medications: New linaclotide (Linze ss) Take ing in the morning with a full glass of water 290 mcg PO QAM 30 days 30 caps 6RF K59.04 - Chronic i diopathic constipa tion On Hold linaclotide (Linze ss) Hold Commen t: Doctor's Order 145 mcg PO DAILY 30 days 30 caps 6R F K59.04 - Chronic i diopathic constipa tion TODAY'S VISIT CAMBODIAN #[id number] She says she is doing much better with the Linzess 290mcg, and she feels this dose is adequate. She also continues on her famotidine and simethicone. She is now satisfied with her GI regimen. Return office visit in [address] 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 Review of Systems Const Denies fatigue, Denies fever(s), Denies night sweats, Denies poor appetite and Denies weight loss Eyes Details: glasses Reports requires corrective lenses ENT Reports Normal hearing present, Denies dental pain, Denies dysphagia, Denies hearing loss, Denies mouth pain, Denies odynophagia, Denies throat swelling, Denies tongue swelling and Reports other (Dentition adequate) Card Reports no additional complaints Resp Reports no additional complaints GI Details: Denies abdominal pain, Denies melena, Denies bloating, Denies hematochezia, Reports constipation, Denies GI cramping, Denies dysphagia, Denies excessive flatus, Denies early satiety, Reports heartburn, Denies diarrhea, Denies nausea, Denies odynophagia, Denies vomiting and Denies hematemesis Skin/Breast Denies pruritus, Denies lesions, Denies rash and Denies jaundice Neuro Reports Normal hearing present and Denies Abnormal speech present Endo Denies fatigue Aller/Immun Denies throat swelling and Denies tongue swelling Physical Exam Vital Signs: Last Vital Signs Pulse 69 06/04/23 13:38 BP 138/62 06/04/23 13:38 BMI result Body Mass Index 30.4 Const General: cooperative, no acute distress, well developed and well groomed Nutritional Appearance: well nourished and obese Orientation/consciousness: oriented to person, oriented to place and oriented to time Limitations: language barrier HEENT Head: Yes normocephalic and Yes atraumatic Eyes General: appearance normal, both eyes and all related structures Pupils: Equal, round and reactive pupils present Neck Neck: Yes normal visual inspection and Yes no lymphadenopathy Thyroid: Thyroid normal Resp Effort & Inspection: normal respiratory effort and able to speak in complete sentences Auscultation: clear to auscultation bilaterally Cardio Rate: regular rate Rhythm: regular rhythm Heart sounds: Normal, physiologic split S2 sound present Peripheral pulses: radial pulses present and posterior tibial pulses present GI Inspection: No distended, No Abdominal panniculus present and Yes obesity Palpation (GI): Soft to palpation, nontender, no guarding, not rigid and No hepatosplenomegaly present Percussion: Yes normal to percussion Auscultation: normal bowel sounds Rectal Exam - Female: deferred Skin General skin exam: no rashes or lesions noted, turgor normal, skin not dry, no jaundice, No spider nevi and no striae Rashes: no rashes Nails: normal Neuro General: oriented to person, oriented to place and oriented to time Cranial nerves: Yes Equal, round and reactive pupils present and Yes Normal hearing present Speech: No Abnormal speech present Extrem General: Yes normal to inspection, No clubbing, No cyanosis and No edema Psych Appearance: grossly normal and well kempt Mental Status: mental status grossly normal Speech and movement: Normal speech and movement present Affect: normal affect Attitude: cooperative Thought process: Normal thought process present and not confabulating Thought content: Normal thought content present Insight: Limited insight present (Psych) Judgement: Limited judgement present (Psych) Assessment & Plan Assessment & Plan (1) Chronic idiopathic constipation: Code(s): K59.04 - Chronic idiopathic constipation (2) GERD (gastroesophageal reflux disease): Code(s): K21.9 - Gastro-esophageal reflux disease without esophagitis (3) Nausea: Code(s): R11.0 - Nausea (4) Abdominal bloating: Code(s): R14.0 - Abdominal distension (gaseous) Plan CAMBODIAN #[id number] She says she is doing much better with the Linzess 290mcg, and she feels this dose is adequate. She also continues on her famotidine and simethicone. She is now satisfied with her GI regimen. Return office visit in 6 months. Medications: Refilled simethicone after meals 180 mg PO BID 60 caps 6RF 30 days R14.0 - Abdominal distension (gaseous) linaclotide (Linzess) Take 1st thing in the morning with a full glass of water 290 mcg PO QAM 30 caps 6RF 30 days K59.04 - Chronic idiopathic constipation famotidine (Pepcid) 40 mg PO BEDTIME 90 tabs 3RF 90 days K21.9 - Gastro- esophageal reflux disease without esophagitis Discontinued linaclotide (Linzess) Discontinued Reason: Doctor's Order 145 mcg PO DAILY 30 caps 6RF 30 days K59.04 - Chronic idiopathic constipation bisacodyl (Dulcolax (bisacodyl)) Discontinued Reason: Doctor's Order 10 mg (2 x 5 mg) PO BEDTIME 60 tabs 3RF 30 days Coding Level of Care Code Est Pt Level 3 (64112) Diagnoses Chronic idiopathic constipation K59.04 GERD (gastroesophageal reflux disease) K21.9 Nausea R11.0 Abdominal bloating R14.0
[2023-06-04 13:38] VITALS: BP 138/62; PULSE 69; BMI 30.4
== END 2023-06-04 14:03 | disposition home or self-care (01) ==
PROVIDERS: PCP Internal Medicine; Visit Provider Nurse Practitioner
DX: K59.04 Chronic idiopathic constipation (principal); K21.9 Gastro-esophageal reflux disease without esophagitis; R11.0 Nausea; R14.0 Abdominal distension (gaseous)
CPT/HCPCS: 99213

== ENCOUNTER → 2023-06-04 13:31 | Outpatient (BNVA) | payer OTHER, SELFPAY | PROVIDERS: PCP Internal Medicine; Visit Provider Nurse Practitioner | DX: K59.04 Chronic idiopathic constipation (principal); K21.9 Gastro-esophageal reflux disease without esophagitis; R11.0 Nausea; R14.0 Abdominal distension (gaseous); Z79.899 Other long term (current) drug therapy | CPT/HCPCS: 99212 ==

== ENCOUNTER 2023-07-14 13:25 | Outpatient (REF) | payer OTHER, SELFPAY | END 2023-07-14 13:26 | disposition home or self-care (01) | LOC: HO.MAMMO 13:25 | PROVIDERS: PCP Internal Medicine; Visit Provider Internal Medicine | DX: Z12.31 Encounter for screening mammogram for malignant neoplasm of breast (principal) | CPT/HCPCS: 77063; 77067 ==

== ENCOUNTER → 2023-07-14 13:30 | Outpatient (BNV) | payer OTHER, SELFPAY | PROVIDERS: PCP Internal Medicine; Visit Provider Radiology Diagnostic Radiology | DX: Z12.31 Encounter for screening mammogram for malignant neoplasm of breast (principal) | CPT/HCPCS: 77063; 77067 ==

== ENCOUNTER 2023-09-23 13:43 | Outpatient (REF) | payer OTHER, SELFPAY ==
--- NOTE | ~2023-09-23 | MM_ITS ---
EXAMINATION: BONE DENSITOMETRY CLINICAL INDICATION: Osteoporosis. COMPARISON: Baseline BD dated 09/06/2021. TECHNIQUE: Using a [employer] DXA System (software version: 13.1) manufactured by [employer], dual-energy x-ray absorptiometry was performed of the lumbar spine and left hip. The images are of good technical quality. Summary results are attached. FINDINGS: LEFT FEMUR, NECK: Current: BMD 0.798 g/cm2, Z-score -0.1, T-score -1.7, osteopenia. Baseline: BMD 0.652 g/cm2. LEFT FEMUR, TOTAL: Current: BMD 0.818 g/cm2, Z-score -0.1, T-score -1.5, osteopenia, 16.2% increase from baseline (<5% change is not significant). Baseline: BMD 0.704 g/cm2. AP SPINE L1-L4: Current: BMD 0.733 g/cm2, Z-score -2.2, T-score -3.7, osteoporosis, 5.6% increase from baseline (<5% change is not significant). Baseline: BMD 0.694 g/cm2. IDENTIFIED RISK FACTORS: Menopause, hysterectomy, osteoporosis. HISTORY OF FRACTURE: None listed. MEDICATIONS: Vitamin D, bisphosphonate. MM/XR DEXA axial skeleton IMPRESSION: 1. DIAGNOSIS: Osteoporosis based on the lowest T-score value of -3.7 in the lumbar spine applying World Health Organization criteria. 2. 10-YEAR FRACTURE RISK PREDICTION, FRAX: According to the guidelines, FRAX calculation should only be performed on patients in the osteopenia bone density category. Therefore, FRAX was not performed on this patient. 3. Treatment Recommendations: NOF guidelines recommend consideration for treatment in postmenopausal women and men age 50 and older presenting with the following: -A hip or vertebral (clinical or morphometric) fracture. -T-score less than or equal to -2.5 at the femoral neck or spine after appropriate evaluation to exclude secondary causes. -Low bone mass at the hip or spine and a 10-year fracture probability by FRAX of greater than or equal to 3% for hip fracture or greater than or equal to 20% for major osteoporotic fracture based on the [place] adapted WHO algorithm. 4. Other Recommendations: All treatment decisions require clinical judgment and consideration of individual patient factors, including patient preferences, comorbidities, previous drug use, risk factors not captured in the FRAX model (e.g. frailty, falls, vitamin D deficiency, increased bone turnover, interval significant decline in bone density) and possible under or overestimation of fracture risk by FRAX. Additional medical evaluation for secondary cause of low bone mineral density may be appropriate. FUTURE SCAN RECOMMENDATION: People with diagnosed cases of osteoporosis or at high risk for fracture should have regular bone mineral density tests. For patients eligible for Medicare, routine testing is allowed once every 2 years. The testing frequency can be increased to one year for patients who have rapidly progressing disease, those who are receiving or discontinuing medical therapy to restore bone mass, or have additional risk factors.
== END 2023-09-23 13:44 | disposition home or self-care (01) ==
LOC: HO.MAMMO 13:43
PROVIDERS: PCP Nurse Practitioner Family; Visit Provider Internal Medicine
DX: M81.0 Age-related osteoporosis without current pathological fracture (principal)
CPT/HCPCS: 77080

== ENCOUNTER 2023-12-22 18:03 | Outpatient (REF) | payer OTHER, SELFPAY ==
[2023-12-23 10:16] LABS: Bacterial Vaginosis PCR NEGATIVE (Negative); Candida Group PCR DETECTED (Not Detect); Candida glab krusei PCR NOT DETECTED (Not Detect); Trichomonas vaginalis PCR NOT DETECTED (Not Detect)
== END 2023-12-22 18:04 | disposition home or self-care (01) ==
LOC: HO.HHCLNP 18:03
PROVIDERS: Visit Provider Student in an Organized Health Care Education/Training Program
DX: N89.8 Other specified noninflammatory disorders of vagina (principal)
CPT/HCPCS: 0352U

== ENCOUNTER 2024-01-02 12:05 | Outpatient (AMB) | payer OTHER, SELFPAY ==
[2024-01-02 12:14] VITALS: BP 140/71; PULSE 80; BMI 29.7
--- NOTE | 2024-01-02 12:14 | A.OFFVIS_ITS ---
Vital Signs 01/02/24 12:14 Height 4 ft 11 in Weight 146 lb 13.246 oz BMI 29.7 BP 140/71 H Blood Pressure Location Lt brachial Position Sitting Pulse 80 Intake Visit Reasons: 6 months follow up Intake Note: Patient presents to in office visit today in 6 months follow up. CC: Patient c/o abdominal bloating and LUQ abdominal pain. Denies other GI symptoms. 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 Accompanied by: Self / Same As Patient Allergies tramadol Allergy (Severe, Verified 01/25/24 05:59) Hallucinations morphine Allergy (Intermediate, Verified 01/25/24 05:59) Hallucinations HPI HPI 6 months follow up: Details: Assessment & Plan (1) Chronic idiopathic constipation: Code(s): K59.04 - Chronic idiopathic constipation (2) GERD (gastroesophageal reflux disease): Code(s): K21.9 - Gastro-esophageal reflux disease without esophagitis (3) Nausea: Code(s): R11.0 - Nausea (4) Abdominal bloating: Code(s): R14.0 - Abdominal distension (gaseous) Plan YORUBA #[id number] She says she is doing much better with the Linzess 290mcg, and she feels this dose is adequate. She also continues on her famotidine and simethicone. She is now satisfied with her GI regimen. Return office visit in 6 months. Medications: Refilled simethicone after meals 180 mg PO BID 60 caps 6RF 30 days R14.0 - Abdominal distension (gaseous) linaclotide (Linzess) Take 1st thing in the morning with a full glass of water 290 mcg PO QAM 30 caps 6RF 30 days K59.04 - Chronic idiopathic constipation famotidine (Pepcid) 40 mg PO BEDTIME 90 tabs 3RF 90 days K21.9 - Gastro- esophageal reflux disease without esophagitis Discontinued linaclotide (Linzess) Discontinued Reason: Doctor's Order 145 mcg PO DAILY 30 caps 6RF 30 days K59.04 - Chronic idiopathic constipation bisacodyl (Dulcolax (bisacodyl)) Discontinued Reason: Doctor's Order 10 mg (2 x 5 mg) PO BEDTIME 60 tabs 3RF 30 days TODAYS VISIT [place] [employer] She continues to do well on her Linzess 290mcg, and she feels this dose is adequate. She also continues on her famotidine and simethicone. She is due for a screening colonoscopy, the last was in [address] Gonzalez. A hyperplastic polyp was removed. There are no prior problems with anesthesia or sedation. She denies any cardiac or respiratory problems. No ID problems She does not know of any FHX of crc or polyps. 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 Review of Systems Const Denies fatigue, Denies fever(s), Denies night sweats, Denies poor appetite and Denies weight loss Eyes Details: glasses Reports requires corrective lenses ENT Reports Normal hearing present, Denies dental pain, Denies dysphagia, Denies hearing loss, Denies mouth pain, Denies odynophagia, Denies throat swelling, Denies tongue swelling and Reports other (Dentition adequate) Card Reports no additional complaints Resp Reports no additional complaints GI Details: Denies abdominal pain, Denies melena, Denies bloating, Denies hematochezia, Reports constipation, Denies GI cramping, Denies dysphagia, Denies excessive flatus, Denies early satiety, Reports heartburn, Denies diarrhea, Denies nausea, Denies odynophagia, Denies vomiting and Denies hematemesis Skin/Breast Denies pruritus, Denies lesions, Denies rash and Denies jaundice Neuro Reports Normal hearing present and Denies Abnormal speech present Endo Denies fatigue Aller/Immun Denies throat swelling and Denies tongue swelling Physical Exam Vital Signs: Last Vital Signs Pulse 80 01/02/24 12:14 BP 140/71 H 01/02/24 12:14 BMI result Body Mass Index 29.7 Const General: cooperative, no acute distress, well developed and well groomed Nutritional Appearance: well nourished and obese Orientation/consciousness: oriented to person, oriented to place and oriented to time Limitations: language barrier HEENT Head: Yes normocephalic and Yes atraumatic Eyes General: appearance normal, both eyes and all related structures Pupils: Equal, round and reactive pupils present Neck Neck: Yes normal visual inspection and Yes no lymphadenopathy Thyroid: Thyroid normal Resp Effort & Inspection: normal respiratory effort and able to speak in complete sentences Auscultation: clear to auscultation bilaterally Cardio Rate: regular rate Rhythm: regular rhythm Heart sounds: Normal, physiologic split S2 sound present Peripheral pulses: radial pulses present and posterior tibial pulses present GI Inspection: No distended, No Abdominal panniculus present and Yes obesity Palpation (GI): Soft to palpation, nontender, no guarding, not rigid and No hepatosplenomegaly present Percussion: Yes normal to percussion Auscultation: normal bowel sounds Rectal Exam - Female: deferred Skin General skin exam: no rashes or lesions noted, turgor normal, skin not dry, no jaundice, No spider nevi and no striae Rashes: no rashes Nails: normal Neuro General: oriented to person, oriented to place and oriented to time Cranial nerves: Yes Equal, round and reactive pupils present and Yes Normal hearing present Speech: No Abnormal speech present Extrem General: Yes normal to inspection, No clubbing, No cyanosis and No edema Psych Appearance: grossly normal and well kempt Mental Status: mental status grossly normal Speech and movement: Normal speech and movement present Affect: normal affect Attitude: cooperative Thought process: Normal thought process present and not confabulating Thought content: Normal thought content present Insight: Fair insight present (Psych) Judgement: Fair judgement present (Psych) Assessment & Plan Assessment & Plan (1) Pre-op examination: Code(s): Z01.818 - Encounter for other preprocedural examination Category: Medical (2) GERD (gastroesophageal reflux disease): Code(s): K21.9 - Gastro-esophageal reflux disease without esophagitis Category: Medical (3) Chronic idiopathic constipation: Code(s): K59.04 - Chronic idiopathic constipation Category: Medical Plan [place] [employer] She continues to do well on her Linzess 290mcg, and she feels this dose is adequate. She also continues on her famotidine and simethicone. She is due for a screening colonoscopy, the last was in [address] Gonzalez. A hyperplastic polyp was removed. There are no prior problems with anesthesia or sedation. She denies any cardiac or respiratory problems. No ID problems She does not know of any FHX of crc or polyps. LABS: COLONOSCOPY BIOPSY Orders: Orders Colonoscopy - GI Use Only 01/02/24 Z - Encounter for other preprocedural examination Complete Blood Count Auto Diff 01/02/24 - Encounter for other preprocedural examination Comprehensive Met. Panel 01/02/24 - Encounter for other preprocedural examination Medications: New peg 3350-electrolytes 236-22.74-6.74 -5.86 gram (Golytely) until fecal effluent is clear; do not exceed a total volume of 2,000 mL 240 mL PO Q10M 4,000 mL 0RF 1 day Z.11 - Encounter for screening for malignant neoplasm of colon bisacodyl (Dulcolax (bisacodyl)) 10 mg (2 x 5 mg) PO BEDTIME 4 tabs 0RF 2 days Coding Level of Care Code Est Pt Level 4 (08320) Diagnoses Pre-op examination Z. GERD (gastroesophageal reflux disease) K21.9 Chronic idiopathic constipation K59.04
== END 2024-01-02 13:48 | disposition home or self-care (01) ==
PROVIDERS: PCP Nurse Practitioner Family; Visit Provider Nurse Practitioner
DX: K59.04 Chronic idiopathic constipation (principal); Z12.11 Encounter for screening for malignant neoplasm of colon; Z86.0102 Personal history of hyperplastic colon polyps; K21.9 Gastro-esophageal reflux disease without esophagitis
CPT/HCPCS: 99214

== ENCOUNTER 2024-01-02 12:05 | Outpatient (REF) | payer OTHER, SELFPAY ==
[2024-01-02 13:24] LABS: MANUAL DIFF FLAG NO
[2024-01-02 13:32] LABS: Basophils Percent Auto 0.3 % (0-2); Eosinophils Absolute Auto 0.1 X10*3/uL (0.0-0.4); Eosinophils Percent Auto 2.3 % (0-4); Hematocrit 41.6 % (37.0-47.0); Hemoglobin 13.6 g/dl (12.0-16.0); Imm Gran Abs Auto 0.03 X10*3/uL (0.00-0.03); Imm Gran Pct Auto 0.5 % (0.0-0.4); Lymphocytes Absolute Auto 1.3 X10*3/uL (1.2-4.9); Lymphocytes Percent Auto 21.3 % (20-40); Mean Corpuscular HGB Conc 32.7 g/dl (31.0-35.0); Mean Corpuscular Hemoglobin 31.9 pg (27.0-33.0); Mean Corpuscular Volume 97.7 fL (80.0-98.0); Mean Platelet Volume 9.7 fL (9.4-12.3); Monocytes Absolute Auto 0.6 X10*3/uL (0.1-1.2); Monocytes Percent Auto 9.3 % (2-11); Neutrophils Percent Auto 66.3 % (45-73); Platelet Count 256 X10*3/uL (160-400); Red Blood Count 4.26 X10*6/uL (4.20-5.50); Red Cell Distribution Width 11.9 % (11.0-16.0); White Blood Count 6.1 X10*3/uL (4.8-10.8)
[2024-01-02 14:05] LABS: Alanine Aminotransferase 14 U/L (0-31); Albumin Level 3.9 g/dL (3.5-5.0); Alkaline Phosphatase 72 U/L (39-117); Anion Gap 8 (12-20); Aspartate Amino Transferase 19 U/L (5-31); Bilirubin Total 0.2 mg/dL (0.0-1.0); Blood Urea Nitrogen 19 mg/dL (9-16); Calcium 9.3 mg/dL (8.4-10.2); Carbon Dioxide 31 mmol/L (22-29); Chloride 111 mmol/L (96-108); Estimated Glomerular Filt Rate > 60; Glucose Random 130 mg/dL (60-115); Sodium 145 mmol/L (135-145); Total Protein 6.8 g/dL (6.5-8.0)
== END 2024-01-02 12:06 | disposition home or self-care (01) ==
LOC: HO.LAB 12:05
PROVIDERS: PCP Nurse Practitioner Family; Visit Provider Nurse Practitioner
DX: Z01.818 Encounter for other preprocedural examination (principal); K21.9 Gastro-esophageal reflux disease without esophagitis; K59.04 Chronic idiopathic constipation; Z79.899 Other long term (current) drug therapy
CPT/HCPCS: 36415; 80053; 85025; 99212

== ENCOUNTER 2024-01-25 05:53 | Emergency (ER) | payer OTHER, SELFPAY ==
--- NOTE | 2024-01-25 | ECG_ITS ---
Test Reason : chest pain Blood Pressure : / mmHG Vent. Rate : 065 BPM Atrial Rate : 065 BPM P-R Int : 144 ms QRS Dur : 086 ms QT Int : 412 ms P-R-T Axes : 055 060 042 degrees QTc Int : 428 ms Normal sinus rhythm Normal ECG When compared with ECG of 07-JUL-2022 14:01, No significant change was found Referred By: Generic ED Physician Electronically Signed By:RELL RAE
--- NOTE | ~2024-01-25 | XR_ITS ---
EXAMINATION: XR CHEST CLINICAL INFORMATION: Chest pain COMPARISON: Chest 02/13/2022 TECHNIQUE: Frontal view of the chest was obtained. FINDINGS: No significant abnormality is noted involving the heart, lungs, mediastinum, bony thorax or soft tissues. XR/XR chest 1V IMPRESSION: Unremarkable chest examination. Electronically signed by: Oz Khan MD 01/25/2024 07:59 AM [facility]
[2024-01-25 05:58] VITALS: BP 140/70; BP 154/79; PULSE 69; PULSE 70; RESP 18; TEMP 36.7; O2SAT 100; O2SAT 99; BMI 30.5
[2024-01-25 06:22] LABS: Hematocrit 40.8 % (37.0-47.0); Hemoglobin 13.6 g/dl (12.0-16.0); Mean Corpuscular HGB Conc 33.3 g/dl (31.0-35.0); Mean Corpuscular Hemoglobin 32.2 pg (27.0-33.0); Mean Corpuscular Volume 96.7 fL (80.0-98.0); Mean Platelet Volume 9.5 fL (9.4-12.3); Platelet Count 250 X10*3/uL (160-400); Red Blood Count 4.22 X10*6/uL (4.20-5.50); Red Cell Distribution Width 11.7 % (11.0-16.0); White Blood Count 4.7 X10*3/uL (4.8-10.8)
[2024-01-25 06:27] LABS: INTERNATIONAL NORM RATIO 0.9 (0.9-1.1); Prothrombin Time 10.7 SEC (10.9-12.4)
[2024-01-25 06:36] LABS: Anion Gap 12 (12-20); Blood Urea Nitrogen 11 mg/dL (9-16); Calcium 8.7 mg/dL (8.4-10.2); Carbon Dioxide 26 mmol/L (22-29); Chloride 109 mmol/L (96-108); Creatinine Clr Calc Pharmacy 55.2; Estimated Glomerular Filt Rate > 60; Glucose Random 111 mg/dL (60-115); Magnesium 2.2 mg/dL (1.6-2.6); Potassium 3.6 mmol/L (3.3-5.1); Sodium 143 mmol/L (135-145)
--- NOTE | 2024-01-25 06:45 | PC.NURSE ---
T/w spoke with oncoming provider who had pt yesterday. MD will look over labs and decide whether or not to order abx and will order pt home scheduled meds.
[2024-01-25 06:47] LABS: Troponin-I High Sensitivity < 2.7 ng/L (<3.5-17.0)
[2024-01-25] MEDS: Ketorolac Tromethamine 15 MG/ML VIAL IVPUSH (07:18)
--- NOTE | 2024-01-25 07:52 | ED_ITS ---
HPI - Chest Pain General Chief Complaint: Chest Pain Stated Complaint: L sided CP, 12 lead unremarkable, micronesian speaking Time Seen by Provider: 01/25/24 06:39 Source: patient Mode of arrival: ambulatory Limitations: other (Poor histoian ) History of Present Illness ED Provider: Wilder PHILLIPS HPI narrative: 68 year old female hx of OA, demntia, migranes, HLD, presents w/ left sided chest pain x 3-4 days and right arm pain x 1 year. Also complaining of a traumatic left sided rib pain. Patient reports that this all started suddenly. No sick contacts. Denies falls or trauma. Denies shortness of breath, fevers, chills, nausea, vomiting, headache, vision changes, dizziness, weakness. Related Data Home Medications ?Medication ?Instructions ?Recorded ?Confirmed atorvastatin 40 mg tablet 1 tab PO DAILY 10/26/21 10/26/21 baclofen 20 mg tablet 1 tab PO TID 10/26/21 10/26/21 ibuprofen 800 mg tablet 1 tab PO TID PRN Pain 10/26/21 10/26/21 melatonin 3 mg tablet 1 tab PO BEDTIME 10/26/21 10/26/21 alendronate 70 mg tablet 70 mg PO QWEEK 01/15/22 blood sugar diagnostic (FreeStyle #10 ea 01/15/22 Lite Strips) cetirizine 10 mg tablet 10 mg PO DAILY 01/15/22 diclofenac sodium 1 % topical gel 2 g topical QID muscle pain 01/15/22 lancets 33 gauge (TRUEplus Lancets) #100 ea 01/15/22 amlodipine 2.5 mg tablet 2.5 mg PO DAILY 07/10/22 Previous Rx's ?Medication ?Instructions ?Recorded polyethylene glycol 3350 17 17 g PO DAILY 30 days #510 grams 01/15/22 gram/dose oral powder (Miralax) diclofenac sodium 50 mg 50 mg PO BID #20 tabs 09/12/22 tablet,delayed release famotidine 40 mg tablet (Pepcid) 40 mg PO BEDTIME 90 days #90 tabs 06/04/23 linaclotide 290 mcg capsule 290 mcg PO QAM 30 days #30 caps 06/04/23 (Linzess) simethicone 180 mg capsule 180 mg PO BID 30 days #60 caps 06/04/23 bisacodyl 5 mg tablet,delayed 10 mg (2 x 5 mg) PO BEDTIME 2 days 01/02/24 release (Dulcolax (bisacodyl)) #4 tabs peg 3350-electrolytes 236 240 ml PO Q10M 1 day #4,000 mL 01/02/24 gram-22.74 gram-6.74 gram-5.86 gram solution (Golytely) Allergies Allergy/AdvReac Type Severity Reaction Status Date / Time tramadol Allergy Severe Hallucinati Verified 01/25/24 05:59 ons morphine Allergy Intermediate Hallucinati Verified 01/25/24 05:59 ons Review of Systems 2 Review of Systems: Yes all other systems are reviewed and are negative [facility] Past Medical History Attestation statement: The following information was validated with the patient. 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 Oriented X3.? No acute distress.? Head: Normocephalic, atraumatic, no step-offs or deformities Eyes: Pupils equal, round and reactive to light.? Neck: Normal inspection.? Neck supple.? CVS: Normal heart rate and rhythm.? Pulses normal.? Anterior left-sided chest wall tenderness on palpation. Respiratory: No respiratory distress.? Breath sounds normal.? Abdomen: Soft and nontender.? Skin: Skin warm and dry.? Normal skin color.? Normal skin turgor.? Extremities: No lower extremity edema.? No calf ttp. 5/5 strength to bilateral upper and lower extremities Back: No midline tenderness, no C-spine tenderness, full range of motion, no CVA tenderness bilaterally Neuro: Oriented X 3.? No motor deficit.? No sensory deficit. CN 2-12 intact Course Reevaluation(s) Reevaluation #1: CBC with no acute findings needing intervention. Chemistry no acute findings needing intervention. Troponin negative x2 with nonischemic EKG. Coags normal. Chest x-ray unremarkable. Patient feeling better after Toradol. Time: 10:36 Reevaluation #2: Patient feeling much better. Will discharge her home advised to take ibuprofen and Tylenol as needed. Educated patient on diagnosis and treatment plan, answered all question, patient verbalizes understanding. At this time patient will be discharged home, advised to return with new or worsening symptoms. Educated on worrisome signs and symptoms and when to return. At this time I feel comfortable discharge home. Time: 10:36 Medications Administered Discontinued Medications Generic Name Dose Route Start Last Admin Trade Name Freq PRN Reason Stop Dose Admin Ketorolac Tromethamine 15 mg 01/25/24 07:04 01/25/24 07:18 Ketorolac Tromethamine 15 Mg/Ml Vial IVPUSH 01/25/24 07:05 15 mg ONCE ONE Administration Medical Decision Making Medical Decision Making [facility] Narrative: 0751 68 year old female presents w/ left sided chest pain x 3-4 days and right arm pain x 1 year. Also complaining of a traumatic left sided rib pain PE discomfort with palpation of left-sided anterior chest wall. Hx and pe concerning for costochondritis, unlikely ACS, PE, dissection. No signs of acute respiratory distress. Rib pain likely musculoskeletal, unlikely fracture, dislocation, pneumothorax. Right arm pain ongoing for over a year likely chronic in nature possible osteoarthritis. Unlikely neurovascular compromise or acute threat to limb. Plan - labs, nelsy, ekg Differential Diagnosis Differential Diagnoses: The differential diagnosis associated with the presentation includes (Hx and pe concerning for costochondritis, unlikely ACS, PE, dissection. No signs of acute respiratory distress. Rib pain likely musculoskeletal, unlikely fracture, dislocation, pneumothorax. Right arm pain ongoing for over a year likely chronic in nature possible osteoarthritis. Unlikely neurova) Admission/Observation Consideration of admission/observation: Escalation of care including admission/observation considered (possible ) Lab Data MDM Lab Attestation statement: I reviewed the patient's lab results. 01/25/24 06:15 01/25/24 06:15 Labs: Lab Results 01/25/24 01/25/24 Range/Units 06:15 09:12 WBC 4.7 L (4.8-10.8) X10*3/uL RBC 4.22 (4.20-5.50) X10*6/uL Hgb 13.6 (12.0-16.0) g/dl Hct 40.8 (37.0-47.0) % MCV 96.7 (80.0-98.0) fL MCH 32.2 (27.0-33.0) pg MCHC 33.3 (31.0-35.0) g/dl RDW 11.7 (11.0-16.0) % Plt Count 250 (160-400) X10*3/uL MPV 9.5 (9.4-12.3) fL Absolute Nucleated RBC 0.000 (0.0-0.012) X10*3/uL Nucleated RBC % (auto) 0.0 (0.0-0.2) /100WBC PT 10.7 L (10.9-12.4) SEC INR 0.9 (0.9-1.1) Sodium 143 (135-145) mmol/L Potassium 3.6 D (3.3-5.1) mmol/L Chloride 109 H (96-108) mmol/L Carbon Dioxide 26 (22-29) mmol/L Anion Gap 12 (12-20) BUN 11 (9-16) mg/dL Creatinine 0.81 (0.5-1.4) mg/dL Estim Creat Clear Calc 55.2 Estimated GFR > 60 Random Glucose 111 (60-115) mg/dL Calcium 8.7 D (8.4-10.2) mg/dL Magnesium 2.2 (1.6-2.6) mg/dL Troponin I High Sens < 2.7 < 2.7 (<3.5-17.0) ng/L Independent Interpretation I performed an independent interpretation of an: EKG (non ischemic ventricular rate of 65, NC normal, QRS normal, QT/QTC normal. EKG normal sinus rhythm no ST elevations or inversions concerning for acute ischemia.) and Plain X-Ray (XR/XR chest 1V IMPRESSION: Unremarkable chest examination.) Radiology Impression Discussion of test interpretation with radiology: I have reviewed the radiologist's reading. External Record Review External record reviewed: Inpatient record, Office record, Outpatient record, Prior outpatient labs, Prior outpatient radiology, Primary care record and Outside ED record Critical Care Time Critical Care Time Critical Care Time: No Discharge Plan Discharge Clinical Impression: Chest pain, Acute costochondritis Patient Disposition: Home, Self-Care Instructions: Chest Pain (ED) Additional Instructions: Take your medications as prescribed. If you were prescribed antibiotics today, it is important that you take your medication to their entirety, do not skip any doses, do not finish them early. Follow-up with your primary care provider this week. Return to the emergency department with new or worsening symptoms. In case of emergency call 911 You can take ibuprofen every 6 hours Tylenol every 4 as needed for pain or discomfort. Your xray results: XR/XR chest 1V IMPRESSION: Unremarkable chest examination. Prescriptions: No Action atorvastatin 40 mg tablet 1 tab PO DAILY ibuprofen 800 mg tablet 1 tab PO TID PRN (Reason: Pain) melatonin 3 mg tablet 1 tab PO BEDTIME baclofen 20 mg tablet 1 tab PO TID diclofenac sodium 50 mg tablet,delayed release (DR/EC) 50 mg PO BID Qty: 20 0RF cetirizine 10 mg tablet 10 mg PO DAILY alendronate 70 mg tablet 70 mg PO QWEEK (DME) lancets [TRUEplus Lancets] 33 gauge misc See Rx Instructions .ROUTE BID Qty: 100 Rx Instructions: As directed (DME) FreeStyle Lite Strips Strip See Rx Instructions .ROUTE BID Qty: 10 Rx Instructions: As directed diclofenac sodium 1 % gel 2 g topical QID polyethylene glycol 3350 [Miralax] 17 gram/dose powder 17 g PO DAILY 30 Days Qty: 510 11RF amlodipine 2.5 mg tablet 2.5 mg PO DAILY Linzess 290 mcg capsule 290 mcg PO QAM 30 Days Qty: 30 6RF Rx Instructions: Take 1st thing in the morning with a full glass of water simethicone 180 mg capsule 180 mg PO BID 30 Days Qty: 60 6RF Rx Instructions: after meals famotidine [Pepcid] 40 mg tablet 40 mg PO BEDTIME 90 Days Qty: 90 3RF peg 3350-electrolytes [Golytely] 236-22.74-6.74 -5.86 gram recon soln 240 ml PO Q10M 1 Days Qty: 4000 0RF Rx Instructions: until fecal effluent is clear; do not exceed a total volume of 2,000 mL bisacodyl [Dulcolax (bisacodyl)] 5 mg tablet,delayed release (DR/EC) 10 mg PO BEDTIME 2 Days Qty: 4 0RF Referrals: Diamond Ponce MD [Primary Care Provider] - 2 days Interventions: ED Discharge Assessment Last Done: 01/25/24 10:14 Discharge Date/Time: 01/25/24 10:14 Print Language: Other
[2024-01-25 08:16] VITALS: BP 144/70; PULSE 73; RESP 12; TEMP 36.7; O2SAT 99
[2024-01-25 09:40] LABS: Troponin-I High Sensitivity < 2.7 ng/L (<3.5-17.0)
[2024-01-25 10:14] VITALS: BP 144/70; PULSE 73; RESP 12; TEMP 36.7; O2SAT 99
== END 2024-01-25 10:14 | disposition home or self-care (01) ==
PROVIDERS: Physician Assistant; Emergency Provider Internal Medicine; PCP Internal Medicine
DX: R07.89 Other chest pain (principal); M79.601 Pain in right arm; R07.81 Pleurodynia; M94.0 Chondrocostal junction syndrome [Tietze]; Z79.899 Other long term (current) drug therapy
CPT/HCPCS: 36415; 71045; 80048; 83735; 84484; 85027; 85610; 93005; 96374; 99284; 99285; J1885

== ENCOUNTER → 2024-01-25 05:56 | Outpatient (BNV) | payer OTHER, SELFPAY | PROVIDERS: Emergency Provider Internal Medicine; PCP Internal Medicine; Visit Provider Internal Medicine | DX: R07.9 Chest pain, unspecified (principal) | CPT/HCPCS: 93010 ==

== ENCOUNTER 2024-03-03 07:54 | Outpatient (REF) | payer OTHER, SELFPAY ==
[2024-03-03 11:20] LABS: MANUAL DIFF FLAG NO
[2024-03-03 11:25] LABS: Basophils Percent Auto 0.6 % (0-2); Eosinophils Absolute Auto 0.2 X10*3/uL (0.0-0.4); Eosinophils Percent Auto 4.2 % (0-4); Hematocrit 41.6 % (37.0-47.0); Hemoglobin 13.7 g/dl (12.0-16.0); Imm Gran Abs Auto 0.02 X10*3/uL (0.00-0.03); Imm Gran Pct Auto 0.4 % (0.0-0.4); Lymphocytes Absolute Auto 1.3 X10*3/uL (1.2-4.9); Lymphocytes Percent Auto 26.3 % (20-40); Mean Corpuscular HGB Conc 32.9 g/dl (31.0-35.0); Mean Corpuscular Volume 97.2 fL (80.0-98.0); Mean Platelet Volume 10.1 fL (9.4-12.3); Monocytes Absolute Auto 0.5 X10*3/uL (0.1-1.2); Monocytes Percent Auto 10.6 % (2-11); Neutrophils Absolute Auto 2.8 x10*3/uL (2.0-8.3); Neutrophils Percent Auto 57.9 % (45-73); Platelet Count 277 X10*3/uL (160-400); Red Blood Count 4.28 X10*6/uL (4.20-5.50); Red Cell Distribution Width 11.5 % (11.0-16.0); White Blood Count 4.8 X10*3/uL (4.8-10.8)
[2024-03-03 11:32] LABS: Estimated Average Glucose 137 mg/dL; Hemoglobin A1C 162.9652 umol/L; Hemoglobin A1c % 6.4 % (<6.0); Total Hemoglobin (HGBA1C) 3525.2135 umol/L
[2024-03-03 11:44] LABS: Creatinine Urine 57.95 mg/dL; Microalbumin Urine < 5.0 mg/L
[2024-03-03 11:51] LABS: Alanine Aminotransferase 15 U/L (0-31); Albumin Level 3.9 g/dL (3.5-5.0); Alkaline Phosphatase 62 U/L (39-117); Anion Gap 9 (12-20); Aspartate Amino Transferase 25 U/L (5-31); Bilirubin Total 0.4 mg/dL (0.0-1.0); Blood Urea Nitrogen 15 mg/dL (9-16); Calcium 9.6 mg/dL (8.4-10.2); Carbon Dioxide 30 mmol/L (22-29); Chloride 107 mmol/L (96-108); Cholesterol 242 mg/dL (<200); Estimated Glomerular Filt Rate > 60; Glucose Random 101 mg/dL (60-115); HDL Cholesterol 61 mg/dL (>40); LDL Cholesterol Calculated 167 mg/dL (<100); Potassium 3.9 mmol/L (3.3-5.1); Sodium 142 mmol/L (135-145); Total Protein 6.9 g/dL (6.5-8.0); Triglycerides 73 mg/dL (<150)
[2024-03-03 12:03] LABS: HIV AB/AG Nonreactive (Nonreactive); HIV Num 1 0.06 S/CO (0.00-0.99); ~HepC Num1 0.21 S/CO (0.00-0.79); ~Hepatitis C Antibody Nonreactive (Nonreactive)
[2024-03-03 12:11] LABS: TSH reflex Free T4 1.72 uIU/mL (0.32-4.0)
== END 2024-03-03 07:55 | disposition home or self-care (01) ==
LOC: HO.HHCL 07:54
PROVIDERS: Visit Provider Internal Medicine
DX: E11.9 Type 2 diabetes mellitus without complications (principal)
CPT/HCPCS: 36415; 80053; 80061; 82306; 82570; 83036; 84443; 85025; 86803; 87389

== ENCOUNTER 2024-04-19 14:28 | Emergency (ER) | payer OTHER, SELFPAY ==
--- NOTE | ~2024-04-19 | XR_ITS ---
EXAMINATION: XR CHEST CLINICAL INFORMATION: chest pain COMPARISON: None available. TECHNIQUE: 2 views of the chest were obtained. FINDINGS: No significant abnormality is noted involving the heart, lungs, mediastinum, bony thorax or soft tissues. XR/XR chest 2V IMPRESSION: Unremarkable chest examination. Electronically signed by: Oz Khan MD 04/19/2024 04:29 PM [facility]
--- NOTE | 2024-04-19 14:43 | ECG_ITS ---
Test Reason : CHEST PAIN Blood Pressure : */* mmHG Vent. Rate : 71 BPM Atrial Rate : 71 BPM P-R Int : 142 ms QRS Dur : 74 ms QT Int : 404 ms P-R-T Axes : 48 30 36 degrees QTcB Int : 439 ms Normal sinus rhythm Nonspecific ST and T wave abnormality Borderline ECG When compared with ECG of 25-Jan-2024 05:56, Nonspecific ST and T wave abnormality more prominent Referred By: Radha Valles Electronically Signed By: RELL RAE
[2024-04-19 14:44] VITALS: BP 131/74; PULSE 74; O2SAT 100
[2024-04-19 14:53] VITALS: BP 113/66; PULSE 73; RESP 18; TEMP 36.6; O2SAT 99; BMI 31.6
--- NOTE | 2024-04-19 15:30 | ED_ITS ---
HPI - Chest Pain General Chief Complaint: Chest Pain Stated Complaint: CP Time Seen by Provider: 04/19/24 14:42 History of Present Illness ED Provider: Dr. Valles HPI narrative: 69 y/o F patient; PMH T2DM, HTN, HLD, osteoarthritis, GERD; presents from walk in clinic due to left-sided chest pressure/tightness for the last 3 - 4 days. The patient denies associated: diaphoresis, nausea/vomiting, fever or chills. Occasionally dry coughing last night. She reports the chest discomfort is not reproducible with deep respiration or movement/positioning. EMS provided ASA 324mg PO and x1 Nitro. Patient states she had a recent ECHO and stress test in June 2023 at [facility] which they told her was all normal . Previously seen in this ED for similar symptoms on 01/25/2024 and had improvement in symptoms after Toradol. Discharged to home at that time. Related Data Home Medications ?Medication ?Instructions ?Recorded ?Confirmed atorvastatin 40 mg tablet 1 tab PO DAILY 10/26/21 10/26/21 baclofen 20 mg tablet 1 tab PO TID 10/26/21 10/26/21 ibuprofen 800 mg tablet 1 tab PO TID PRN Pain 10/26/21 10/26/21 melatonin 3 mg tablet 1 tab PO BEDTIME 10/26/21 10/26/21 alendronate 70 mg tablet 70 mg PO QWEEK 01/15/22 blood sugar diagnostic (FreeStyle #10 ea 01/15/22 Lite Strips) cetirizine 10 mg tablet 10 mg PO DAILY 01/15/22 diclofenac sodium 1 % topical gel 2 g topical QID muscle pain 01/15/22 lancets 33 gauge (TRUEplus Lancets) #100 ea 01/15/22 amlodipine 2.5 mg tablet 2.5 mg PO DAILY 07/10/22 Previous Rx's ?Medication ?Instructions ?Recorded polyethylene glycol 3350 17 17 g PO DAILY 30 days #510 grams 01/15/22 gram/dose oral powder (Miralax) diclofenac sodium 50 mg 50 mg PO BID #20 tabs 09/12/22 tablet,delayed release famotidine 40 mg tablet (Pepcid) 40 mg PO BEDTIME 90 days #90 tabs 06/04/23 linaclotide 290 mcg capsule 290 mcg PO QAM 30 days #30 caps 06/04/23 (Linzess) simethicone 180 mg capsule 180 mg PO BID 30 days #60 caps 06/04/23 bisacodyl 5 mg tablet,delayed 10 mg (2 x 5 mg) PO BEDTIME 2 days 01/02/24 release (Dulcolax (bisacodyl)) #4 tabs peg 3350-electrolytes 236 240 ml PO Q10M 1 day #4,000 mL 01/02/24 gram-22.74 gram-6.74 gram-5.86 gram solution (Golytely) Allergies Allergy/AdvReac Type Severity Reaction Status Date / Time tramadol Allergy Severe Hallucinati Verified 04/19/24 14:55 ons morphine Allergy Intermediate Hallucinati Verified 01/25/24 05:59 ons Review of Systems 2 Review of Systems: Yes all other systems are reviewed and are negative [facility] Past Medical History Attestation statement: The following information was validated with the patient. Source: old records reviewed Medical History Diabetes type 2, controlled High cholesterol Surgical History H/O colonoscopy H/O: hysterectomy H/O section Social History Social History Alcohol intake: never Patient Tobacco Use Status: Never used Tobacco Smoked in Last 30 Days: No Use of substances other than those prescribed or required for medical reasons: No Advance Directives: Yes Advance Directives on File: Yes Advance Directives Date on File: 10/26/21 Current occupation: [employer] Physical Exam 2 Vital Signs: Vital Signs: Last Vital Signs Temp 97.8 F 04/19/24 14:53 Pulse 73 04/19/24 14:53 Resp 18 04/19/24 14:53 BP 113/66 04/19/24 14:53 Pulse Ox 99 04/19/24 14:53 O2 Del Method Room Air 04/19/24 14:53 BMI result Body Mass Index 31.6 Patient is afebrile and hemodynamically stable Const: General: cooperative and no acute distress HEENT: Head: Yes normal to inspection and Yes atraumatic Eyes: General: appearance normal, both eyes and all related structures P upils: Equal, round and reactive pupils present EOM: EOMs intact bilaterally Neck: Neck: Yes normal visual inspection, Yes full ROM, Yes supple and No tender Chest: Chest palpation & inspection: normal inspection of the chest and normal palpation of entire chest wall Resp: Effort & Inspection: normal respiratory effort, able to speak in complete sentences, no cough and no respiratory distress Auscultation: clear to auscultation bilaterally Cardio: Rate: regular rate Rhythm: regular rhythm Peripheral pulses: P eripheral pulses 2+ throughout GI: Inspection: Yes normal to inspection, No Abdominal wall edema and No distended Palpation (GI): Soft to palpation, not firm, nontender, no guarding and not rigid Auscultation: normal bowel sounds Back/Spine/Pelvis: Back: No back tenderness Neuro: Cranial nerves: Yes Equal, round and reactive pupils present Course Course Course Narrative: Patient is afebrile and hemodynamically stable. Will obtain EKG, CXR, and laboratory studies. CXR unremarkable. EKG is non-ischemic with NSR 71BPM and normal intervals. No changes compared to EKG from 01/25/2024. Labs reviewed. Troponin negative. With over 4 days of symptoms, and undetectable troponin, ACS is unlikely. With reassuring CXR, unlikely pneumonia, pneumothorax, aortic dissection. Plan: Discharge to home with PCP follow up Return precautions given Medical Decision Making Lab Data 04/19/24 15:30 04/19/24 15:30 Labs: Lab Results 04/19/24 04/19/24 Range/Units 15:30 15:46 WBC 6.3 (4.8-10.8) X10*3/uL RBC 4.08 L (4.20-5.50) X10*6/uL Hgb 13.1 (12.0-16.0) g/dl Hct 39.8 (37.0-47.0) % MCV 97.5 (80.0-98.0) fL MCH 32.1 (27.0-33.0) pg MCHC 32.9 (31.0-35.0) g/dl RDW 11.7 (11.0-16.0) % Plt Count 261 (160-400) X10*3/uL MPV 9.6 (9.4-12.3) fL Immature Gran % (Auto) 0.5 H (0.0-0.4) % Neut % (Auto) 65.1 (45-73) % Lymph % (Auto) 22.5 (20-40) % [place] % (Auto) 8.8 (2-11) % Eos % (Auto) 2.9 (0-4) % Baso % (Auto) 0.2 (0-2) % Lymph # (Auto) 1.4 (1.2-4.9) X10*3/uL [place] # (Auto) 0.6 (0.1-1.2) X10*3/uL Eos # (Auto) 0.2 (0.0-0.4) X10*3/uL Baso # (Auto) 0.0 (0.0-0.2) X10*3/uL Abs Immat Gran (auto) 0.03 (0.00-0.03) X10*3/uL Absolute Neuts (auto) 4.1 (2.0-8.3) x10*3/uL Absolute Nucleated RBC 0.000 (0.0-0.012) X10*3/uL Nucleated RBC % (auto) 0.0 (0.0-0.2) /100WBC Sodium 139 (135-145) mmol/L Potassium 4.8 D (3.3-5.1) mmol/L Chloride 111 H (96-108) mmol/L Carbon Dioxide 26 (22-29) mmol/L Anion Gap 7 L (12-20) BUN 19 H (9-16) mg/dL Creatinine 0.89 (0.5-1.4) mg/dL Estim Creat Clear Calc 50.3 Estimated GFR > 60 Random Glucose 112 (60-115) mg/dL Calcium 8.6 D (8.4-10.2) mg/dL Total Bilirubin 0.3 (0.0-1.0) mg/dL Direct Bilirubin 0.1 (0.0-0.5) mg/dL AST 28 (5-31) U/L ALT 24 (0-31) U/L Alkaline Phosphatase 67 (39-117) U/L Troponin I High Sens < 2.7 (<3.5-17.0) ng/L Total Protein 6.8 (6.5-8.0) g/dL Albumin 3.7 (3.5-5.0) g/dL Lipase 33 (8-78) U/L Influenza Type A (PCR) NEGATIVE (Negative) Influenza Type B (PCR) NEGATIVE (Negative) RSV RNA Qual (PCR) NEGATIVE (Negative) SARS-CoV-2 RNA (RT-PCR) NEGATIVE (Negative) Radiology Impression Discussion of test interpretation with radiology: I have reviewed the radiologist's reading. Radiologist Impression: EXAMINATION: XR CHEST CLINICAL INFORMATION: chest pain COMPARISON: None available. TECHNIQUE: 2 views of the chest were obtained. FINDINGS: No significant abnormality is noted involving the heart, lungs, mediastinum, bony thorax or soft tissues. XR/XR chest 2V IMPRESSION: Unremarkable chest examination. Electronically signed by: Oz Khan MD 04/19/2024 04:29 PM [facility] Discharge Plan Discharge Clinical Impression: Chest pain Patient Disposition: Home, Self-Care Instructions: Chest Pain (DC) Additional Instructions: As we discussed, you were seen today for chest pain. Your labs and CXR were reassuring. Unclear the cause of your chest pain. Please follow up with your primary doctor within the next 1 - 2 days to discuss your recent emergency department visit and for re-evaluation. Return to the emergency department for: Change or worsening chest pain Difficulty breathing Passing out Prescriptions: No Action atorvastatin 40 mg tablet 1 tab PO DAILY ibuprofen 800 mg tablet 1 tab PO TID PRN (Reason: Pain) melatonin 3 mg tablet 1 tab PO BEDTIME baclofen 20 mg tablet 1 tab PO TID diclofenac sodium 50 mg tablet,delayed release (DR/EC) 50 mg PO BID Qty: 20 0RF cetirizine 10 mg tablet 10 mg PO DAILY alendronate 70 mg tablet 70 mg PO QWEEK (DME) lancets [TRUEplus Lancets] 33 gauge misc See Rx Instructions .ROUTE BID Qty: 100 Rx Instructions: As directed (DME) FreeStyle Lite Strips Strip See Rx Instructions .ROUTE BID Qty: 10 Rx Instructions: As directed diclofenac sodium 1 % gel 2 g topical QID polyethylene glycol 3350 [Miralax] 17 gram/dose powder 17 g PO DAILY 30 Days Qty: 510 11RF amlodipine 2.5 mg tablet 2.5 mg PO DAILY Linzess 290 mcg capsule 290 mcg PO QAM 30 Days Qty: 30 6RF Rx Instructions: Take 1st thing in the morning with a full glass of water simethicone 180 mg capsule 180 mg PO BID 30 Days Qty: 60 6RF Rx Instructions: after meals famotidine [Pepcid] 40 mg tablet 40 mg PO BEDTIME 90 Days Qty: 90 3RF peg 3350-electrolytes [Golytely] 236-22.74-6.74 -5.86 gram recon soln 240 ml PO Q10M 1 Days Qty: 4000 0RF Rx Instructions: until fecal effluent is clear; do not exceed a total volume of 2,000 mL bisacodyl [Dulcolax (bisacodyl)] 5 mg tablet,delayed release (DR/EC) 10 mg PO BEDTIME 2 Days Qty: 4 0RF Print Language: Other
[2024-04-19 15:34] LABS: MANUAL DIFF FLAG NO
[2024-04-19 15:44] LABS: Basophils Percent Auto 0.2 % (0-2); Eosinophils Absolute Auto 0.2 X10*3/uL (0.0-0.4); Eosinophils Percent Auto 2.9 % (0-4); Hematocrit 39.8 % (37.0-47.0); Hemoglobin 13.1 g/dl (12.0-16.0); Imm Gran Abs Auto 0.03 X10*3/uL (0.00-0.03); Imm Gran Pct Auto 0.5 % (0.0-0.4); Lymphocytes Absolute Auto 1.4 X10*3/uL (1.2-4.9); Lymphocytes Percent Auto 22.5 % (20-40); Mean Corpuscular HGB Conc 32.9 g/dl (31.0-35.0); Mean Corpuscular Hemoglobin 32.1 pg (27.0-33.0); Mean Corpuscular Volume 97.5 fL (80.0-98.0); Mean Platelet Volume 9.6 fL (9.4-12.3); Monocytes Absolute Auto 0.6 X10*3/uL (0.1-1.2); Monocytes Percent Auto 8.8 % (2-11); Neutrophils Absolute Auto 4.1 x10*3/uL (2.0-8.3); Neutrophils Percent Auto 65.1 % (45-73); Platelet Count 261 X10*3/uL (160-400); Red Blood Count 4.08 X10*6/uL (4.20-5.50); Red Cell Distribution Width 11.7 % (11.0-16.0); White Blood Count 6.3 X10*3/uL (4.8-10.8)
[2024-04-19 16:02] LABS: Alanine Aminotransferase 24 U/L (0-31); Albumin Level 3.7 g/dL (3.5-5.0); Alkaline Phosphatase 67 U/L (39-117); Anion Gap 7 (12-20); Aspartate Amino Transferase 28 U/L (5-31); Bilirubin Direct 0.1 mg/dL (0.0-0.5); Bilirubin Total 0.3 mg/dL (0.0-1.0); Blood Urea Nitrogen 19 mg/dL (9-16); Calcium 8.6 mg/dL (8.4-10.2); Carbon Dioxide 26 mmol/L (22-29); Chloride 111 mmol/L (96-108); Creatinine Clr Calc Pharmacy 50.3; Estimated Glomerular Filt Rate > 60; Glucose Random 112 mg/dL (60-115); Lipase 33 U/L (8-78); Potassium 4.8 mmol/L (3.3-5.1); Sodium 139 mmol/L (135-145); Total Protein 6.8 g/dL (6.5-8.0)
[2024-04-19 16:14] LABS: Troponin-I High Sensitivity < 2.7 ng/L (<3.5-17.0)
[2024-04-19 16:32] LABS: Influenza A PCR NEGATIVE (Negative); Influenza B PCR NEGATIVE (Negative); Resp Syncy Virus RNA Qual PCR NEGATIVE (Negative); SARS COV2 PCR INHOUSE NEGATIVE (Negative)
[2024-04-19 17:11] VITALS: BP 148/90; PULSE 84; RESP 18; TEMP 36.4; O2SAT 99
--- OUTSIDE RECORDS SUMMARY | 2024-04-19 19:18 | XMS_ITS | Encounter Summary ---
Author Organization [employer] Address [address] [place] [address] Care Team Providers Care Energy Administrator Name Role Phone Diamond Ponce MD Primary Care Provide r Reason for Visit * Reason Comments Shortness of Breath Encounter Details Date Type Department Care Team ([facility] st Contact Info) Description 04/19/2024 3:20 PM EST Office Visit [facility] [address], [place] [phone] Name, MD Elvis [address] [place] [address] Chest pain, unspecified type (Primary Dx) Social History Tobacco Use Types Packs/Day Years Used Date Smoking Tobacco: Never Passive Smoke Exposure: Never Smokeless Tobacco: Never Alcohol Use Standard Drinks/Week Comments Never 0 (1 standard drink = 0.6 oz pur e alcohol) Alcohol Answer Date Recorded Frequency of Alcohol Consumption Not on file 12/09/2023 Average Number of Drinks Not on file 024 Frequency of Binge Drinking Not on file 11/22 Score 0 12/09/2023 Depression Answer Date Recorded Patient Health Questionnaire-9 Score 0 05/23/2023 Patient Health Questionnaire-9 Score 0 05/23/2023 Last PHQ-9: Questionnaire Data Not on file 0 05/23/2023 Housing Stability Answer Date Recorded What is your housing situation today? I have denia menjivar 05/15/[address] you li ve. Do you have problems with any of the following? None of the above 05/15/2023 Food Insecurity Answer Date Recorded Within the past 12 months, y ou worried that your food would run out before you got money to buy more: Sometimes True 2023 Within the past 12 months,th e food you bought just didn't last and you didn't have enough money to get more: Sometimes True 05/15/2023 Transportation Answer Date Recorded In the past 12 months, has l ack of transportation kept you from medical appts, meetings, work or from getting things needed for daily living? No 05/15/2023 Utilities Answer Date Recorded In the past 12 months, has t he electric, Gradeable, oil or water company threatened to shut off services in your home? No 05/15/2023 Depression Answer Date Recorded Patient Health Questionnaire-2 Score 0 05/23/2023 Comments Unknown Sex and Gender Information Value Date Recorded Sex Assigned at Female 01/21/2022 10:30 AM EDT Legal Sex Female 10:30 AM EDT Gender Identity Female 01/21/2022 10:30 AM EDT Sexual Orientation Straight 01/21/2022 10 :30 AM EDT documented as of this encounter Last Filed Vital Signs Vital Sign Reading Time Taken Comments Blood Pressure 131/79 04/19/2024 1:35 PM EST Pulse 84 04/19/2024 1:35 PM EST Temperature 36.8 ??C (98.2 ??F) 04/19/2024 1:35 PM ES T Respiratory Rate 20 04/19/2024 1:35 PM EST Oxygen Saturation 99% 04/19/2024 1:35 PM EST RA Inhaled Oxygen Concentration - - Weight - - Height - - Body Mass Index - - documented in this encounter Progress Notes * Jesenia Macias RN - 04/19/2024 3:20 PM EST Pt presents to Walk In reporting SOB, 8/10 sharp, stabbing left neck down to left chest/left upper abd pain x2 days. Pt reports, felt like gas yesterday. Pt denies other s/s at time of triage. Vitals and EKG obtained. Verbal report given to Dr. Matta and this RN given verbal orders to call EMS (r/o RI, further workup.) RN given verbal order per Dr. Matta to administer 324mg ASA, given at 1403. PtTW. EMS arrived and given verbal report. Pt to be transported to [facility]. Pt to F/U as needed upon discharge. * Elvis Matta MD - 04/19/2024 3:20 PM EST Subjective Patient ID: Eveline Do is a 69 y.o. female who presents for Shortness of Breath. Patient walked in complaining of severe left-sided chest pain with radiation to the left neck. Symptoms are associated with shortness of breath. She was having symptoms at rest during her visit. Her EKG showed normal sinus rhythm with a heart rate of [address] segment elevation or depression. Q waves in lead III are unchanged from her usual baseline. She is not treated for HTN and she does not know of history of CAD but she has h/o DM. Review of Systems Respiratory: Positive for shortness of breath. Negative for cough and wheezing. Cardiovascular: Positive for chest pain and palpitations. Visit Vitals BP 131/79 (BP Location: Right arm, Patient Position: Sitting, BP Cuff Size: Adult) Pulse 84 Temp 98.2 ??F (36.8 ??C) (Temporal) Resp 20 SpO2 99% Comment: RA Smoking Status Never Objective Physical Exam Constitutional: Appearance: Normal appearance. Cardiovascular: Rate and Rhythm: Normal rate and regular rhythm. Heart sounds: No murmur heard. No gallop. Pulmonary: Effort: Pulmonary effort is normal. No respiratory distress. Breath sounds: Normal breath sounds. No wheezing. Musculoskeletal: Right lower leg: No edema. Left lower leg: No edema. Neurological: Mental Status: She is alert. Lab Results Component Value Date HGBA1C 6.4 (H) 03/03/2024 Current Outpatient Medications on File Prior to Visit Medication Sig Dispense Refill acetaminophen (Tylenol) 500 MG tablet Take 1 tablet (500 mg) by mouth every 6 (six) hours if neededfor mild pain for up to 20 doses. 20 tablet 0 alendronate (Fosamax) 70 MG tablet take 1 tablet by mouth once a week with 6 to 8 oz of water 30 min before first food of day. do not lie down for 30 minutes 12 tablet 0 Artificial Tear Solution (GenTeal Tears) 0.1-0.2-0.3 % solution USE 1 DROP IN EACH EYE FOUR TIMES DAILY NEEDED FOR DRY EYES. atorvastatin (Lipitor) 40 MG tablet TAKE 1 TABLET BY MOUTH ONCE DAILY 90 tablet 1 bisacodyl (Correctol) 5 MG EC tablet Take 1 tablet by mouth at bed time. cetirizine (ZyrTEC) 10 MG tablet Take 1 tablet (10 mg) by mouth Once per day. 90 tablet 1 chlorhexidine (Periogard) 0.12 % solution Place 15 mL into mouth between cheek and gum every 12 (twelve) hours. cholecalciferol (Vitamin D-3) 50 MCG (2000 UT) capsule Take 1 capsule by mouth daily 30 capsule 11 dextran 70-hypromellose (artificial tears) 0.1-0.3 % ophthalmic solution Administer 1 drop into both eyes if needed in the morning, at noon, in the evening, and at bedtime for dry eyes. 15 mL 11 Diclofenac Sodium 1 % gel APPLY 2 GM TOPICALLY TO THE AFFECTED AREA IF NEEDED FOR PAIN 100 g 0 docusate sodium (Colace) 100 MG capsule Take 1 capsule (100 mg) by mouth at bedtime. 90 capsule 1 famotidine (Pepcid) 40 MG tablet Take 40 mg by mouth at bedtime. fluticasone (Flonase) 50 MCG/ACT nasal spray Administer 1 spray into each nostril Once per day. 16 g 2 glucose blood (FREESTYLE LITE) test strip 1 each by Other route every 12 (twelve) hours. 100 each 2 hydrocortisone (Anusol-HC) 2.5 % rectal cream Insert into the rectum 2 times daily. 28 g 0 hydrocortisone (Anusol-HC) 2.5 % rectal cream Insert into the rectum 2 times daily. 28 g 0 hydrocortisone 2.5 % cream Apply pea sized amount to skin bid for 1 week 15 g 0 ketoconazole (Nizoral) 2 % shampoo Apply topically 2 (two) times a week. 100 mL 0 Lancets misc 1 each 2 times daily. 100 each 2 lidocaine (Lidoderm) 5 % patch Place 1 patch on the skin at bed time. lidocaine (Xylocaine) 4 % external solution 5 ml swish and spit tid prn pain for 1 week- irish 150 mL 0 Linzess 290 MCG capsule TAKE 1 CAPSULE BY MOUTH EVERY MORNING WITH A FULL GLASS OF WATER Melatonin 3 MG capsule take one at bed time Xdvfgoqp-Luhkvlujrz-Rxfjhptcd (Triple Antibiotic) 3.5-400-5000 ointment APPLY TOPICALLY TO THE AFFECTED AREA(S) EVERY DAY NEEDED 28 g 0 omeprazole OTC (PriLOSEC OTC) 20 MG EC tablet Take 2 tablets (40 mg) by mouth before breakfast. Do not crush, chew, or split. 30 tablet 0 psyllium (Metamucil Smooth Texture) 58.6 % powder Take 5.12 g (3 g of fiber) by mouth 2 times daily. Start with 1 tsp TID, increase as tolerated 425 g 11 sennosides (Senokot) 8.6 MG tablet Take 1 tablet by mouth in the morning. Simethicone Ultra Strength 180 MG capsule TAKE 1 CAPSULE BY MOUTH TWICE DAILY AFTER MEALS 60 capsule 0 Sore Throat 15-3.6 MG DISSOLVE 1 LOZENGE IN MOUTH EVERY 3 HOURS NEEDED FOR SORE THROAT triamcinolone (Kenalog) 0.1 % cream Apply topically if needed in the morning and at bedtime (pain and swelling). 30 g 1 TRUEplus Lancets 33G misc TEST BLOOD SUGAR TWICE DAILY DIRECTED zoster vaccine-recombinant adjuvanted (Shingrix) 50 MCG/0.5ML vaccine Inject 0.5 mL into the shoulder, thigh, or buttocks. No current facility-administered medications on file prior to visit. Assessment/Plan Diagnoses and all orders for this visit: Chest pain, unspecified type Comments: I recommended to give the patient 324 mg of aspirin and transferred to the hospital by ambulance torule out acute coronary syndrome. The patient agreed with transportation. Order: - aspirin chewable tablet 324 mg - ECG 12 lead documented in this encounter Plan of Treatment Upcoming Encounters Date Type Department Care Team (Late st Contact Info) Description 06/15/2024 1:45 PM EDT Office Visit [facility] [address], [place] [phone] Diamond Ponce MD [address] [place], [place] [phone] documented as of this encounter Procedures Procedure Name Priority Date/Time Associated Diagnosis Comments ECG 12-LEAD Routine 04/19/2024 2:39 PM EST Chest pain, unspecified type documented in this encounter Results * ECG 12 lead (04/19/2024 2:39 PM EST) Narrative Name, MD Elvis - 04/19/2024 2:39 PM EST Normal sinus rhythm. ??Heart rate of 73. ??No ST segment elevation or depression. ??Q waves in lead III and no change from her baseline us Elvis Matta MD ECG ORDERABLES Final Result documented in this encounter Visit Diagnoses Diagnosis Chest pain, unspecified type- Primary documented in this encounter Administered Medications Inactive Administered Medications - up to 3 most recent administrations Medication Order MAR Action Action Date Dose Rate Site aspirin chewable tablet 324 mg 324 mg, Oral, Once, On 04/19/24 at 1430, For 1 doseIndications:Chest pain, unspecified type Given 04/19/2024 2:03 PM EST 324 mg documented in this encounter Additional Health Concerns Assessment Noted Time PHQ-9 Depression Total Score: 0 05/23/19 24 1:38 PM EST documented as of this encounter Care Teams Energy Administrator Relationship Specialty Start Date End Date Diamond Ponce MD [address] [place] [address] PCP - General Family Medicine 07/01/19 documented as of this encounter
--- OUTSIDE RECORDS SUMMARY | 2024-04-19 19:18 | XMS_ITS | Encounter Summary ---
Author Organization [employer] Address [address] [facility] [address] [facility] [address] [place] [address] Care Team Providers Care Shank Sander Name Role Phone Diamond Ponce MD Primary Care Provide r Reason for Visit * Reason Onset Date Comments Med Refill 04/23/2022 Encounter Details Date Type Department Care Team ([facility] st Contact Info) Description 04/23/2022 Telephone [facility] [address] [place] [address] Diamond Ponce MD [address] [place] [address] Med Refill Social History Tobacco Use Types Packs/Day Years Used Date Smoking Tobacco: Never Assessed Depression Answer Date Recorded Patient Health Questionnaire-9 Score 0 04/24/2022 Depression Answer Date Recorded Patient Health Questionnaire-2 Score 0 04/24/2022 Comments Unknown Sex and Gender Information Value Date Recorded Sex Assigned at Female 01/21/2022 10:30 AM EDT Legal Sex Female 10:30 AM EDT Gender Identity Female 01/21/2022 10:30 AM EDT Sexual Orientation Straight 01/21/2022 10 :30 AM EDT COVID-19 Exposure Response Date Recorded In the last 10 days, have yo u been in contact with someone who was confirmed or suspected to have Coronavirus/COVID-19? No / Unsure 04/24/2022 2:11 PM EST documented as of this encounter Miscellaneous Notes * Telephone Encounter - Doris Brooks LPN - 04/23/2022 4:00 PM EST Please review eye drops were prescribed by you in the past. * Telephone Encounter - Joe Murdock - 04/23/2022 3:51 PM EST Tc from pt requesting med refill Artificial tears documented in this encounter Plan of Treatment Upcoming Encounters Date Type Department Care Team (Late st Contact Info) Description 06/15/2024 1:45 PM EDT Office Visit [facility] [address] [place] [address] Diamond Ponce MD [address] [place] [address] documented as of this encounter Visit Diagnoses Not on filedocumented in this encounter Care Teams Shank Sander Relationship Specialty Start Date End Date Diamond Ponce MD [address] [place] [address] PCP - General Family Medicine 07/01/19 documented as of this encounter
--- OUTSIDE RECORDS SUMMARY | 2024-04-19 19:18 | XMS_ITS | Encounter Summary ---
Author Organization [facility] Address [address] [place] [address] Care Team Providers Care Wind Energy Project Manager Name Role Phone Diamond Ponce MD Primary Care Provide r Encounter Details Date Type Department Care Team (Late st Contact Info) Description 12/11/2022 Orders Only [facility] [address] [place] [address] [phone] Provider, MD Ya Social History Tobacco Use Types Packs/Day Years Used Date Smoking Tobacco: Never Depression Answer Date Recorded Patient Health Questionnaire-9 Score 0 04/24/2022 Depression Answer Date Recorded Patient Health Questionnaire-2 Score 0 04/24/2022 Comments Unknown Sex and Gender Information Value Date Recorded Sex Assigned at Female 01/21/2022 10:30 AM EDT Legal Sex Female 10:30 AM EDT Gender Identity Female 01/21/2022 10:30 AM EDT Sexual Orientation Straight 01/21/2022 10 :30 AM EDT documented as of this encounter Plan of Treatment Upcoming Encounters Date Type Department Care Team (Late st Contact Info) Description 06/15/2024 1:45 PM EDT Office Visit [facility] [address] [place] [phone] Diamond Ponce MD [address] [place] [address] [phone] documented as of this encounter Procedures Procedure Name Priority Date/Time Associated Diagnosis Comments HM COLONOSCOPY Routine 06/16/2013 documented in this encounter Results * Hm Colonoscopy (06/16/2013) Historical Provider HEALTH MAINTENANCE Final Result documented in this encounter Visit Diagnoses Not on filedocumented in this encounter Additional Health Concerns Assessment Noted Time PHQ-9 Depression Total Score: 0 04/24/19 23 2:26 PM EST documented as of this encounter Care Teams Wind Energy Project Manager Relationship Specialty Start Date End Date Diamond Ponce MD [address] [place] [address] PCP - General Family Medicine 07/01/19 documented as of this encounter
--- OUTSIDE RECORDS SUMMARY | 2024-04-19 19:18 | XMS_ITS | Encounter Summary ---
Author Organization [facility] Address [address] [facility] [address] [place] [address] Care Team Providers Care Geologist Petroleum Name Role Phone Diamond Ponce MD Primary Care Provide r Encounter Details Date Type Department Care Team (Late st Contact Info) Description 03/29/2022 [facility] Health Information Management [address] [place] [address] Diamond Ponce MD [address] [place] [address] Social History Tobacco Use Types Packs/Day Years Used Date Smoking Tobacco: Never Assessed Comments Unknown Sex and Gender Information Value [...] Description 06/15/2024 1:45 PM EDT Office Visit [facility] [address] [place] [address] Diamond Ponce MD [address] [place], [place] [phone] documented as of this encounter Visit Diagnoses Not on filedocumented in this encounter Care Teams Geologist Petroleum Relationship Specialty Start Date End Date Diamond Ponce MD [address] [place] [address] [phone] PCP - General Family Medicine 07/01/19 documented as of this encounter
--- OUTSIDE RECORDS SUMMARY | 2024-04-19 19:18 | XMS_ITS | Encounter Summary ---
Author Organization [employer] [facility] Address [address] [facility] 7[address] [place] [address] Care Team Providers Care Travel Service Consultant Name Role Phone Diamond Ponce MD Primary Care Provide r Encounter Details Date Type Department Care Team (Latest Contact Info) Description 12/12/2020 Abstract [facility] Dental, Provider, DDS Social History Tobacco Use Types Packs/Day Years [...] 06/15/2024 1:45 PM EDT Office Visit [facility] [address] [place] [address] Diamond Ponce MD [address] [place] [address] documented as of this encounter Visit Diagnoses Not on filedocumented in this encounter Care Teams Travel Service Consultant Relationship Specialty Start Date End Date Diamond Ponce MD [address] [place] [address] PCP - General Family Medicine 07/01/19 documented as of this encounter
--- OUTSIDE RECORDS SUMMARY | 2024-04-19 19:18 | XMS_ITS | Encounter Summary ---
Author Organization [employer] Address [address] [facility] 7t [place] [address] Care Team Providers Care Mail Handler Equipment Operator Name Role Phone Diamond Ponce MD Primary Care Provide r Reason for Visit * Reason Onset Date Comments Prior Authorization 03/04/2023 Encounter Details Date Type Department Care Team ([facility] st Contact Info) Description 03/04/2023 Telephone [facility] ADULT DENTAL [address] [place] [address] Aron No DDS [address] [place] [address] Prior Authorization Social History Tobacco Use Types Packs/Day Years Used Date Smoking Tobacco: Never Smokeless Tobacco: Never Alcohol Use Standard Drinks/Week Comments Defer 0 (1 standard drink = 0.6 oz pur e alcohol) Depression Answer Date Recorded Patient Health Questionnaire-9 Score 0 04/24/2022 Housing Stability Answer Date Recorded What is your housing situation today? I have denia menjivar 01/06/[address] you li ve. Do you have problems with any of the following? None of the above 01/06/2023 Food Insecurity Answer Date Recorded Within the past 12 months, y ou worried that your food would run out before you got money to buy more: Never True 01/06/2023 Within the past 12 months,th e food you bought just didn't last and you didn't have enough money to get more: Never True Transportation Answer Date Recorded In the past 12 months, has l ack of transportation kept you from medical appts, meetings, work or from getting things needed for daily living? No 01/06/2023 Utilities Answer Date Recorded In the past 12 months, has t he electric, gas, oil or water company threatened to shut off services in your home? No 01/06/2023 Depression Answer Date Recorded Patient Health Questionnaire-2 Score 0 04/24/2022 Comments Unknown Sex and Gender Information Value Date Recorded Sex Assigned at Female 01/21/2022 10:30 AM EDT Legal Sex Female 10:30 AM EDT Gender Identity Female 01/21/2022 10:30 AM EDT Sexual Orientation Straight 01/21/2022 10 :30 AM EDT documented as of this encounter Miscellaneous Notes * Telephone Encounter - Digna Baird - 03/04/2023 10:32 AM EST Patient is calling in to check in on status of PA for dentures. I dont see anything scanned but also unsure if [facility] covers it without needing a PA. DR documented in this encounter Plan of Treatment Upcoming Encounters Date Type Department Care Team (Late st Contact Info) Description 06/15/2024 1:45 PM EDT Office Visit [facility] MEDICINE [address] [place], [place] [phone] Diamond Ponce MD [address] [place] [address] documented as of this encounter Visit Diagnoses Not on filedocumented in this encounter Additional Health Concerns Assessment Noted Time PHQ-9 Depression Total Score: 0 04/24/19 23 2:26 PM EST documented as of this encounter Care Teams Mail Handler Equipment Operator Relationship Specialty Start Date End Date Diamond Ponce MD [address] [place], [place] [phone] PCP - General Family Medicine 07/01/19 documented as of this encounter
--- OUTSIDE RECORDS SUMMARY | 2024-04-19 19:18 | XMS_ITS | Encounter Summary ---
Author Organization [employer] Address [address] [facility] 7t [place] [address] Care Team Providers Care Blanket Cutter Hand Name Role Phone Diamond Ponce MD Primary Care Provide r Reason for Visit * Reason Comments Med Refill Encounter Details Date Type Department Care Team ([facility] st Contact Info) Description 03/25/2024 Refill [facility] MEDICINE [address] [place], [place] [phone] Diamond Ponce MD [address] [place] [address] Essential hypertension Social History Tobacco Use Types Packs/Day Years [...] Description 06/15/2024 1:45 PM EDT Office Visit [facility] MED[facility] [address] [place] [address] Diamond Ponce MD [address] [place] [address] documented as of this encounter Visit Diagnoses Diagnosis Essential hypertension Unspecified essential hypertension documented in this encounter Additional Health Concerns Assessment Noted Time PHQ-9 Depression Total Score: 0 05/23/19 24 1:38 PM EST documented as of this encounter Care Teams Blanket Cutter Hand Relationship Specialty Start Date End Date Diamond Ponce MD [address] [place] [address] PCP - General Family Medicine 07/01/19 documented as of this encounter
--- OUTSIDE RECORDS SUMMARY | 2024-04-19 19:18 | XMS_ITS | Encounter Summary ---
Author Organization [employer] [facility] Address [address] [facility] [address] [place] [address] Care Team Providers Care Spring Coiling Machine Setter Name Role Phone Diamond Ponce MD Primary Care Provide r Reason for Visit * Reason Onset Date Comments triage 04/23/2022 Encounter Details Date Type Department Care Team ([facility] st Contact Info) Description 04/23/2022 Telephone [facility] [address] [place], [place] [phone] Diamond Ponce MD [address] [place], [place] [phone] triage Social History Tobacco Use Types Packs/Day Years [...] encounter Miscellaneous Notes * Telephone Encounter - Oxana Marinelli RN - 04/23/2022 6:33 PM EST Symptoms: Breast Symptoms, Pain - Severe Outcome: Schedule an urgent appointment (within 1 hour) or talk to a nurse or provider soon TC returned to pt who states that she has left breast pain mostly under the breast by her ribs. Asked pt if area was red, had odor or had any open areas pt continued to say she has pain and would just like to see a provider. Pt scheduled tomorrow on the blue team * Telephone Encounter - Joe Mathieu - 04/23/2022 3:50 PM EST Symptoms: Breast Symptoms, Pain - Severe Outcome: Schedule an urgent appointment (within 1 hour) or talk to a nurse or provider soon Reason: No high acuity concerns reported by caller The caller accepted this outcome speaks swiss documented in this encounter Plan of Treatment Upcoming Encounters Date Type Department Care Team (Late st Contact Info) Description 06/15/2024 1:45 PM EDT Office Visit [facility] [address] [place] [address] Diamond Ponce MD [address] [place] [address] documented as of this encounter Visit Diagnoses Not on filedocumented in this encounter Care Teams Spring Coiling Machine Setter Relationship Specialty Start Date End Date Diamond Ponce MD [address] [place] [address] PCP - General Family Medicine 07/01/19 documented as of this encounter
--- OUTSIDE RECORDS SUMMARY | 2024-04-19 19:18 | XMS_ITS | Clinical Summary ---
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 15 mL 11 04/24/19 23 Active bisacodyl (Correctol) 5 MG EC tablet Take 1 tablet by mouth at bed time. 07/04/19 17 Active chlorhexidine (Periogard) 0.12 % solution Place 15 mL into mouth between cheek and gum every 12 (twelve) hours. 06/26/19 22 Active lidocaine (Lidoderm) 5 % patch Place 1 patch on the skin at bed time. 11/08/19 22 Active Melatonin 3 MG capsule take one at bed time 09/27/19 22 Active sennosides (Senokot) 8.6 MG tablet Take 1 tablet by mouth in the morning. 05/30/19 22 Active zoster vaccine-recombin ant adjuvanted (Shingrix) 50 MCG/0.5ML vaccine Inject 0.5 mL into the shoulder, thigh, or buttocks. 08/22/19 22 Active Artificial Tear Solution (GenTeal Tears) 0.1-0.2-0.3 % solution USE 1 DROP IN EACH EYE FOUR TIMES DAILY NEEDED FOR DRY EYES. 04/24/19 23 Active Sore Throat 15-3.6 MG DISSOLVE 1 LOZENGE IN MOUTH EVERY 3 HOURS NEEDED FOR SORE THROAT 02/14/20 22 Active TRUEplus Lancets 33G misc TEST BLOOD SUGAR TWICE DAILY DIRECTED 04/29/19 23 Active famotidine (Pepcid) 40 MG tablet Take 40 mg by mouth at bedtime. 06/20/19 23 Active lidocaine (Xylocaine) 4 % external solution 5 ml swish and spit tid prn pain for 1 week- [facility] 150 mL 10/10/19 23 Active Diclofenac Sodium 1 % gelIndications:C ostochondritis APPLY 2 GM TOPICALLY TO THE AFFECTED AREA IF NEEDED FOR PAIN 100 g 12/05/19 23 Active Simethicone Ultra Strength 180 MG capsuleIndicatio ns:Pain of upper abdomen TAKE 1 CAPSULE BY MOUTH TWICE DAILY AFTER MEALS 60 capsule 02/08/20 23 Active omeprazole OTC (PriLOSEC OTC) 20 MG EC tabletIndication s:Pain of upper abdomen Take 2 tablets (40 mg) by mouth before breakfast. Do not crush, chew, or split. 30 tablet 02/08/20 23 Active ketoconazole (Nizoral) 2 % shampoo Apply topically 2 (two) times a week. 100 mL 02/18/20 23 Active glucose blood (FREESTYLE LITE) test stripIndications :Type 2 diabetes mellitus without complication, without long-term current use of insulin (CMS/HCC) 1 each by Other route every 12 (twelve) hours. 100 each 2 03/13/20 23 Active Lancets miscIndications: Type 2 diabetes mellitus without complication, without long-term current use of insulin (CMS/HCC) 1 each 2 times daily. 100 each 2 03/13/20 23 Active cetirizine (ZyrTEC) 10 MG tabletIndication s:Viral upper respiratory tract infection Take 1 tablet (10 mg) by mouth Once per day. 90 tablet 1 08/25/19 24 Active cholecalciferol (Vitamin D-3) 50 MCG (2000 UT) capsuleIndicatio ns:Vitamin D deficiency Take 1 capsule by mouth daily 30 capsule 11 08/25/19 24 Active Linzess 290 MCG capsule TAKE 1 CAPSULE BY MOUTH EVERY MORNING WITH A FULL GLASS OF WATER 06/04/19 24 Active docusate sodium (Colace) 100 MG capsuleIndicatio ns:Constipation, unspecified constipation type Take 1 capsule (100 mg) by mouth at bedtime. 90 capsule 1 11/03/19 24 Active hydrocortisone (Anusol-HC) 2.5 % rectal creamIndications :External hemorrhoid Insert into the rectum 2 times daily. 28 g 11/03/19 24 Active psyllium (Metamucil Smooth Texture) 58.6 % powderIndication s:Constipation, unspecified constipation type Take 5.12 g (3 g of fiber) by mouth 2 times daily. Start with 1 tsp TID, increase as tolerated 425 g 11 11/03/19 24 025 Active fluticasone (Flonase) 50 MCG/ACT nasal sprayIndications :Acute maxillary sinusitis, recurrence not specified Administer 1 spray into each nostril Once per day. 16 g 2 12/09/19 24 Active alendronate (Fosamax) 70 MG tabletIndication s:Age-related osteoporosis without current pathological fracture take 1 tablet by mouth once a week with 6 to 8 oz of water 30 min before first food of day. do not lie down for 30 minutes 12 tablet 01/09/20 24 Active Neomycin-Bacitra ariana-Polymyxin (Triple Antibiotic) 3.5-400-5000 ointmentIndicati ons:Rash and nonspecific skin eruption APPLY TOPICALLY TO THE AFFECTED AREA(S) EVERY DAY NEEDED 28 g 01/09/20 24 Active hydrocortisone 2.5 % creamIndications :Dermatitis Apply pea sized amount to skin bid for 1 week 15 g 01/13/20 24 Active acetaminophen (Tylenol) 500 MG tablet Take 1 tablet (500 mg) by mouth every 6 (six) hours if needed for mild pain for up to 20 doses. 20 tablet 01/27/20 24 Active triamcinolone (Kenalog) 0.1 % creamIndications :Dry skin dermatitis Apply topically if needed in the morning and at bedtime (pain and swelling). 30 g 1 03/02/20 24 Active hydrocortisone (Anusol-HC) 2.5 % rectal creamIndications :Other hemorrhoids Insert into the rectum 2 times daily. 28 g 03/02/20 24 Active atorvastatin (Lipitor) 40 MG tabletIndication s:Essential hypertension TAKE 1 TABLET BY MOUTH ONCE DAILY 90 tablet 1 03/25/19 25 Active atorvastatin (Lipitor) 40 MG tabletIndication s:Essential hypertension Take 1 tablet (40 mg) by mouth Once per day. 90 tablet 1 08/25/19 24 025 Discontinued Hospital, Clinic, or Other Facility Administered Medication Ordered Dose Route Frequency Start Date End Date Status aspirin chewable tablet 324 mgIndications:Chest pain, unspecified type 324 mg PO Once 04/19/2024 04/19/2024 Ended aspirin chewable tablet 325 mgIndications:Chest pain, unspecified type 325 mg PO Once 04/19/2024 04/19/2024 Discontinued Active Problems Problem Noted Date Diagnosed Date Dry skin dermatitis 03/02/2024 Assessment & Plan (03/02/2024 3:44 PM EST): Use mosterizer every day after bath/shower Vaginal itching 03/02/2024 Other hemorrhoids 03/02/2024 Ill-fitting dentures 01/27/2024 Dermatitis 01/13/2024 Assessment & Plan (01/13/2024 2:47 PM EDT): Exam findings showed one erythematous lesion on left leg as seen on image in chart. -will prescribe hydrocortisone cream. Acute maxillary sinusitis 12/09/2023 Colon cancer screening 12/09/2023 Sore throat 08/25/2023 Age-related osteoporosis wit hout current pathological fracture 08/25/2023 Neck pain 08/25/2023 Assessment & Plan (08/25/2023 4:47 PM EDT): Apply heat on affected area Ibuprofen 600mg Q 8hrs with full stomach Flexeril 5mg at bed time ( she is aware of side effect somnolence) Partial edentulism 06/03/2023 Dyspnea on exertion 05/23/2023 Fractured dental uatsdin with loss of materi al 04/02/2023 Encounter for preventive health examination 02/22 Assessment & Plan (03/13/2023 4:30 PM EST): See hpi Decreased sensation of foot 03/13/2023 External hemorrhoid 02/09/2023 Assessment & Plan (02/09/2023 9:22 AM EST): Small hemorrhoids on exam ,denies constipation -anusol trial Umbilical pain 02/09/2023 Assessment & Plan (02/09/2023 9:29 AM EST): Pt with umbilical colicky pain radiated to back and chest , on and off EKG today:HR 67, QTC 435,noted TWI V2-V3,lead III -similar when compare w EKG 04/2022 ,12/2015 for which underwent a stress test in 2017 that was neg for ischemia Possible dx Gastritis, GERD,less likely cholelithiasis but in the diff ,no concern for appendicitis with ongoing pain for months that is only localized in umbilical area, no findings or symptoms for intestinal obstruction or obvious hernia from exam. Pancreatitis less likely but in the differential , intestinal ischemia seems as well unlikely and has no blood on rectal exam. Cardiac etiology less likely w unchanged EKG and neg stress test. -simethicone prn -add omeprazole am ,and continue famotidine only 1 tab hs -labs ( CBC,chem,lipase,amylase) -referred today for Abd US -alarm signs symptoms discussed w pt -pt reports already called her GI -pd to get apt scheduled-may need repeat EGD Gingival recession, localized 01/29/2023 Dental caries on smooth surface limited to ename l 01/29/2023 Other headache syndrome 01/09/2023 Assessment & Plan (01/09/2023 2:10 PM EDT): Possibly associated to her dental work, I advise acetaminophen if needed and call back if persistent Tipped teeth 01/02/2023 Dental calculus 01/02/2023 Generalized gingival recession 01/02/2023 Oral ulcer 10/09/2022 Assessment & Plan (10/09/2022 2:26 PM EDT): No evidence of super infection. Viscous lidocaine and avoid irritating foods. Acute back pain with sciatica 08/13/2022 Epigastric pain 08/13/2022 Hip pain 08/13/2022 Moderate major depression, single episode 2022 Nosebleed 08/13/2022 Postmenopausal bleeding 08/13/2022 Sciatica 08/13/2022 Chronic left shoulder pain 08/13/2022 Face lesion 08/13/2022 Chronic pain of both shoulders 04/24/2022 Dementia with behavioral disturbance 04/24/2022 Early satiety 04/24/2022 Essential hypertension 04/24/2022 Assessment & Plan (12/09/2023 2:07 PM EDT): I advise: - Aerobic exercise to reduce BP. Initial goal of 30 min walk 3-5x/week. Increase as tolerated. - low-sodium diet (goal: <2g/day) and heart healthy diet such as DASH to reduce BP and prevent ASCVD. - Home BP monitoring 1-2 x day with goal of <140/90. - Seek immediate medical attention for chest pain, palpitations, SOB, syncope, or sudden changes in mental status. - Do not change or discontinue current prescriptions without first consulting health care provider Assessment & Plan (08/25/2023 4:46 PM EDT): - Aerobic exercise to reduce BP. Initial goal of 30 min walk 3-5x/week. Increase as tolerated. - low-sodium diet (goal: <2g/day) and heart healthy diet such as DASH to reduce BP and prevent ASCVD. - Home BP monitoring 1-2 x day with goal of <140/90. - Seek immediate medical attention for chest pain, palpitations, SOB, syncope, or sudden changes in mental status. - Do not change or discontinue current prescriptions without first consulting health care provider Assessment & Plan (05/23/2023 2:19 PM EST): Maintenance: BMP: up to date Lipid Panel: up to date ASCVD Risk: I renewed her atorvastatin 40mg daily - Aerobic exercise to reduce BP. Initial goal of 30 min walk 3-5x/week. Increase as tolerated. - low-sodium diet (goal: <2g/day) and heart healthy diet such as DASH to reduce BP and prevent ASCVD. - Home BP monitoring 1-2 x day with goal of <140/90. - Seek immediate medical attention for chest pain, palpitations, SOB, syncope, or sudden changes in mental status. - Do not change or discontinue current prescriptions without first consulting health care provider Assessment & Plan (03/13/2023 4:29 PM EST): Maintenance: BMP: up to date Lipid Panel: up to date ASCVD Risk: on atorvastain 40mg daily - Aerobic exercise to reduce BP. Initial goal of 30 min walk 3-5x/week. Increase as tolerated. - low-sodium diet (goal: <2g/day) and heart healthy diet such as DASH to reduce BP and prevent ASCVD. - Home BP monitoring 1-2 x day with goal of <140/90. - Seek immediate medical attention for chest pain, palpitations, SOB, syncope, or sudden changes in mental status. - Do not change or discontinue current prescriptions without first consulting health care provider Assessment & Plan (02/09/2023 9:25 AM EST): Mild elevated BP today -states not took BP med today -advised pt to be compliant -has apt w PCP already scheduled in 4 weeks Assessment & Plan (01/09/2023 2:11 PM EDT): - Aerobic exercise to reduce BP. Initial goal of 30 min walk 3-5x/week. Increase as tolerated. - low-sodium diet (goal: <2g/day) and heart healthy diet such as DASH to reduce BP and prevent ASCVD. - Home BP monitoring 1-2 x day with goal of <140/90. - Seek immediate medical attention for chest pain, palpitations, SOB, syncope, or sudden changes in mental status. - Do not change or discontinue current prescriptions without first consulting health care provider Mood disorder 04/24/2022 Type 2 diabetes mellitus without complication Assessment & Plan (03/02/2024 3:43 PM EST): Diabetes is: controlled - Lab Results Component Value Date HGBA1C 6.8 (A) 12/09/2023 HGBA1C 6.8 (A) 05/23/2023 HGBA1C 6.0 01/14/2023 - Lab Results Component Value Date MICROALBUR 7.0 01/14/2023 CREATININE 0.72 02/07/2023 -Changes: none - Diabetic eye exam:up to date - Diabetic foot exam:pending - Continue lifestyle modifications - Continue current medications - Follow up: 3 months Assessment & Plan (12/09/2023 2:07 PM EDT): Diabetes is: controlled - Lab Results Component Value Date HGBA1C 6.8 (A) 12/09/2023 HGBA1C 6.8 (A) 05/23/2023 HGBA1C 6.0 01/14/2023 - Lab Results Component Value Date MICROALBUR 7.0 01/14/2023 CREATININE 0.72 02/07/2023 -Changes: none - Diabetic eye exam:up to date - Diabetic foot exam:up to date - Continue lifestyle modifications - Continue current medications - Follow up: 3 months Assessment & Plan (08/25/2023 4:48 PM EDT): Diabetes is: controlled - Lab Results Component Value Date HGBA1C 6.8 (A) 05/23/2023 HGBA1C 6.0 01/14/2023 HGBA1C 6.6 (A) 08/13/2022 - Lab Results Component Value Date MICROALBUR 7.0 01/14/2023 CREATININE 0.72 02/07/2023 -Changes: none - Diabetic eye exam:up to date - Diabetic foot exam:up to date - Continue lifestyle modifications - Continue current medications - Follow up: 3 months Assessment & Plan (05/23/2023 2:21 PM EST): Diabetes is: almost at goal - Lab Results Component Value Date HGBA1C 6.8 (A) 05/23/2023 HGBA1C 6.0 01/14/2023 HGBA1C 6.6 (A) 08/13/2022 - Lab Results Component Value Date MICROALBUR 7.0 01/14/2023 CREATININE 0.72 02/07/2023 -Changes: none - Diabetic eye exam:up to date - Diabetic foot exam:up to date - Continue lifestyle modifications - Continue current medications - Follow up: 3 months Assessment & Plan (03/13/2023 4:30 PM EST): - Lab Results Component Value Date HGBA1C 6.0 01/14/2023 HGBA1C 6.6 (A) 08/13/2022 HGBA1C 6.2 (H) 04/13/2020 - Lab Results Component Value Date MICROALBUR 7.0 01/14/2023 CREATININE 0.72 02/07/2023 - Diabetic eye exam:up to date - Diabetic foot exam:podiatry referral and exam done today - Continue lifestyle modifications - Continue current medications - Assessment & Plan (01/09/2023 2:12 PM EDT): Lab Results Component Value Date HGBA1C 6.6 (A) 08/13/2022 HGBA1C 6.2 (H) 04/13/2020 HGBA1C 6.7 (H) 12/06/2019 - Lab Results Component Value Date CREATININE 0.77 04/24/2022 - Diabetic eye exam: up to date - Diabetic foot exam: pending - Continue lifestyle modifications - Continue current medications Assessment & Plan (08/14/2022 2:23 PM EDT): - Lab Results Component Value Date HGBA1C 6.6 (A) 08/13/2022 HGBA1C 6.2 (H) 04/13/2020 HGBA1C 6.7 (H) 12/06/2019 - Lab Results Component Value Date CREATININE 0.77 04/24/2022 - - Diabetic eye exam:up to date - Diabetic foot exam: pending - Continue lifestyle modifications - Continue current medications Lumbar radiculopathy 04/24/2022 Hyperlipidemia 01/17/2016 Prediabetes 01/17/2016 Encounters Date Type Department Care Team Description 04/19/2024 3:20 PM EST Office Visit [facility] [address] [place] [id number] Elvis Matta MD Chest pain, unspecified type (Primary Dx) 03/25/2024 Refill [facility] [address] [place] [address] Diamond Ponce MD Essential hypertension 03/18/2024 1:30 PM EST Office Visit [facility] [address] [place] [address] Aron No DDS Ill-fitting dentures (Primary Dx) 03/02/2024 1:45 PM EST Office Visit [facility] [address] [place] [phone] Diamond Ponce MD Dry skin dermatitis (Primary Dx); Type 2 diabetes mellitus without complication, without long-term current use of insulin ([facility]); Dermatitis; Vaginal itching; Other hemorrhoids 03/02/2024 Travel 03/01/2024 Telephone [facility] [address] [place] [phone] Cliff Murdock MA Chart Prep 02/23/2024 3:00 PM EST Office Visit [facility] [address] [place] [address] Aron No DDS Ill-fitting dentures (Primary Dx) 02/17/2024 Patient Outreach [facility] [address] [place] [phone] Diamond Ponce MD Pre-visit Planning (SDOH screening completed on 05/15/2023) 01/27/2024 1:00 PM EST Office Visit [facility] [address] [place] [address] Aron No DDS Odontalgia (Primary Dx) 2024 Orders Only [facility] External Provider, [facility] from Last 3 Months Immunizations Name Administration Dates Next Due Influenza High-dose Quadrivalent Preservative Fr ee 01/03/2022,04/13/2020 Influenza Injectable Quadriv alant Preservative Free IIV4 MDCK 02/23/2021 Influenza injectable quadrivalent preservative f ree 03/13/2023,12/18/2016 Influenza, High Dose Seasonal, Preservative Free 04/19/2019 Pneumococcal Conjugate PCV 20 08/13/2022 Pneumococcal Polysaccharide PPSV23 04/19/2019 RSV Bivalent 04/14/2023 Zoster, Recombinant 04/14/2023,02/10/2023 Family History Medical History Relation Name Comments Blindness Maternal Grandmother Relation Name Status Comments Maternal Grandmother Social History Tobacco Use Types Packs/Day Years Used Date Smoking Tobacco: Never Passive Smoke Exposure: Never Smokeless Tobacco: Never Tobacco Cessation:Counseling Given: Not Answered Alcohol Use Standard Drinks/Week Comments Never 0 [...] Orientation Straight 01/21/2022 10 :30 AM EDT Last Filed Vital Signs Vital Sign Reading Time Taken Comments Blood Pressure 131/79 04/19/2024 1:35 PM EST Pulse 84 04/19/2024 1:35 PM EST Temperature 36.8 ??C (98.2 ??F) 04/19/2024 1:35 PM ES T Respiratory Rate 20 04/19/2024 1:35 PM EST Oxygen Saturation 99% 04/19/2024 1:35 PM EST RA Inhaled Oxygen Concentration - - Weight 67.3 kg (148 lb 6.4 oz) 03/02/2024 1:12 P M EST Height 149.9 cm (4' 11 ) 03/02/2024 1:12 PM EST Body Mass Index 29.97 03/02/2024 1:12 PM EST Plan of Treatment Upcoming Encounters Date Type Department Care Team (Late st Contact Info) Description 06/15/2024 1:45 PM EDT Office Visit [facility] [address] [place] [address] Diamond Ponce MD [address] [place] [address] Health Maintenance Due Date Last Done Comments CT Colonography 1954 FIT DNA/Cologuard 1954 FIT 1954 FOBT 1955 Sigmoidoscopy 1955 Colonoscopy 06/17/2023 06/16/2013 Colorectal Cancer Screening 06/17/2023 Dental Oral Exam 07/05/2023 01/02/2023, 11/28/2020 Dental Prophylaxis 07/05/2023 01/02/2023, 12/12/2020 COVID-19 Vaccine ( season) 2023 03/13/2021, 08/11/2020, 07/14/2020 Influenza Vaccine (#1) 2023 , 01/03/2022, 02/23/2021, Additional history exists Dental X-Ray: Full Mouth 11/30/2023 11/28/2020 Dental X-Ray: Bitewings 01/04/2024 01/03/20 23, 08/24/2021, 11/28/2020, Additional history exists DTaP/Tdap/Td Vaccines (2 - Td or Tdap) 02/08/2024 02/07/2014 Diabetes: Foot Exam 03/13/2024 03/13/2023, 03/13/2023, 03/13/2023, Additional history exists SDOH Screening 05/15/2024 05/15/2023 Depression Screening 05/22/2024 05/23/2023, 05/23/19 24 Mammogram 07/13/2024 07/14/2023, 06/22, 07/09/2022, Additional history exists Diabetes: Hemoglobin A1C 09/01/2024 024, 12/09/2023, 05/23/2023, Additional history exists Alcohol/Substance Use Screening 12/08/2024 12/09/2023 Diabetes: Urine Protein Screening 03/03/2025 03/03/2024, 01/14/2023 Lipid Panel 03/03/2025 03/03/2024, 12/23, 09/11/2021, Additional history exists Tobacco Screening 03/18/2025 03/18/2024 Eye Exam 10/02/2025 10/03/2023, 09/21, 10/03/2023, Additional history exists Pneumococcal Vaccine: 65+ Years Completed 08/13/2022, 04/19/2019, 02/07/2014 RSV Patients and Patients Aged 60 years or older Completed 04/14/2023 Zoster Vaccines Completed 04/14/2023, 02/10/2023 Hepatitis C Screening Completed 03/03/2024 HIB Vaccines Aged Out No longer eligi ble based on patient's age to complete this topic HPV Vaccines Aged Out No longer eligi ble based on patient's age to complete this topic Hepatitis A Vaccines Aged Out No long er eligible based on patient's age to complete this topic Hepatitis B Vaccines Aged Out No long er eligible based on patient's age to complete this topic IPV Vaccines Aged Out No longer eligi ble based on patient's age to complete this topic Meningococcal Vaccine Aged Out No hosea isatu eligible based on patient's age to complete this topic RSV under 20 months Aged Out No longe r eligible based on patient's age to complete this topic Rotavirus Vaccines Aged Out No longer eligible based on patient's age to complete this topic Procedures Procedure Name Priority Date/Time Associated Diagnosis Comments ECG 12-LEAD Routine 04/19/2024 2:39 PM EST Chest pain, unspecified type NO CHARGE VISIT Routine 03/18/2024 1:30 PM EST DENTURE FOLLOWUP Routine 03/18/2024 1:30 PM EST ALBUMIN, RANDOM URINE W/CREATININE Routine 03/03/2024 7:57 AM EST Type 2 diabetes mellitus without complication, without long-term current use of insulin (CMS/HCC) TSH W/REFLEX TO FT4 Routine 03/03/2024 7 :57 AM EST Type 2 diabetes mellitus without complication, without long-term current use of insulin (CMS/HCC) VITAMIN D,25-OH,TOTAL,IA Routine 03/03/2024 7:57 AM EST Type 2 diabetes mellitus without complication, without long-term current use of insulin (CMS/HCC) LIPID PANEL, STANDARD Routine 03/03/2024 7:57 AM EST Type 2 diabetes mellitus without complication, without long-term current use of insulin (CMS/HCC) HEPATITIS C AB W/REFL TO HCV RNA, QN, PCR Routine 03/03/2024 7:57 AM EST Type 2 diabetes mellitus without complication, without long-term current use of insulin (CMS/HCC) HIV 1/2 ANTIGEN/ANTIBODY, FOURTH GENERATION W/RFL Routine 03/03/2024 7:57 AM EST Type 2 diabetes mellitus without complication, without long-term current use of insulin (CMS/HCC) HEMOGLOBIN A1C Routine 03/03/2024 7:57 AM EST Type 2 diabetes mellitus without complication, without long-term current use of insulin (CMS/HCC) COMPREHENSIVE METABOLIC PANEL Routine 03/03/2024 7:57 AM EST Type 2 diabetes mellitus without complication, without long-term current use of insulin (CMS/HCC) CBC WITH AUTO DIFFERENTIAL Routine 03/03/2024 7:57 AM EST Type 2 diabetes mellitus without complication, without long-term current use of insulin (CMS/HCC) POCT GLUCOSE Routine 03/02/2024 1:13 PM EST Type 2 diabetes mellitus without complication, without long-term current use of insulin (CMS/HCC) NO CHARGE VISIT Routine 02/23/2024 3:00 PM EST ADJUNCTIVE GENERAL SERVICES - PROFESSIONAL VISITS - CASE PRESENTATION, SUBSEQUENT TO DETAILED AND EXTENSIVE TREATMENT PLANNING Routine 01/27/2024 1:00 PM EST LIMITED ORAL EVALUATION - PROBLEM FOCUSED Routine 01/27/2024 1:00 PM EST INTRAORAL - PERIAPICAL FIRST RADIOGRAPHIC IMAGE Routine 01/27/2024 1:00 PM EST HIGH SENSITIVITY TROPONIN I Routine 2024 9:12 AM EST XR CHEST 1 VIEW Routine 2024 7:03 AM EST BI MAMMOGRAM SCREENING TOMOSYNTHESIS BILATERAL Routine 07/14/2023 1:53 PM EDT Full PROPHYLAXIS - ADULT Routine 01/02/2023 3:00 PM EDT Dental calculus BITEWINGS - 4 RADIOGRAPHIC IMAGES Routine 01/02/2023 3:00 PM EDT Tipped teeth Dental calculus Generalized gingival recession PERIODIC ORAL EVALUATION - ESTABLISHED PATIENT Routine 01/02/2023 3:00 PM EDT DIAGNOSTIC - DIAGNOSTIC IMAGING - INTRAORAL - COMPREHENSIVE SERIES OF RADIOGRAPHIC IMAGES Routine 11/28/2020 12:00 AM EDT HM COLONOSCOPY Routine 06/16/2013 from Last 3 Months or Most Recently Relevant to Health Maintenance Results * ECG 12 lead (04/19/2024 2:39 PM EST) Narrative Name, MD Elvis - 04/19/2024 2:39 PM EST Normal sinus rhythm. ??Heart rate of 73. ??No ST segment elevation or depression. ??Q waves in lead III and no change from her baseline us Elvis Name ECG ORDERABLES Final Result * Vitamin D, 25-Hydroxy, Total, Immunoassay (03/03/2024 7:57 AM EST) Vitamin D 25-OH Total 42.0 >30 ng/mL [facility] Comment:Health Based Referen ce Values*< 20 ng/mL Wtgsoakef18-58 ng/mL Insufficient> 30 ng/mL Sufficient*Jenny RAZO. N Engl J Med. 2007;[id number] must be taken in interpreting Vitamin D results fromdifferent laboratories and methodologies. Published datademonstrated that results from patients undergoinghemodialysis may show a negative bias when tested withvarious automated 25-OH vitamin D assays when compared toLC-MS/MS.When testing samples from patients whose predominant form ofVitamin D is Vitamin D2, such as patients receiving VitaminD2 supplementation, results that are subtherapeutic shouldbe confirmed with another method such as LC-MS/MS. Blood Venous blood specimen / Unknown 03/03/2024 7:57 AM EST 03/03/2024 11:18 AM EST Diamond Lepe MD LAB BLOOD ORDERABLES Final Result Performing Organization Address [facility] Co de Phone Number [facility] [address] [place] [phone] * TSH with Reflex to Free T4 (03/03/2024 7:57 AM EST) TSH reflex Free T4 1.72 0.32 - 4.0 uIU/mL [facility] Blood Venous blood specimen / Unknown 03/03/2024 7:57 AM EST 03/03/2024 11:18 AM EST Diamond Lepe MD LAB BLOOD ORDERABLES Final Result Performing Organization Address [facility] de Phone Number [facility] [address] [place] [address] [phone] * Albumin, Random Urine W/Creatinine (03/03/2024 7:57 AM EST) Creatinine, Urine 57.95 mg/dL [facility] Microalbumin Urine <5.0 mg/L [facility] Microalbum Creatinine Ratio Ur TNP <30 ug/mg cr [facility] Comment:Unable to calculate albumin/creatinine ratio due to lowmicroalbumin or creatinine result. Urine (Urine, Random) 03/03/2024 7:57 AM EST 03/03/2024 11:16 AM EST us Diamond Lepe MD LAB URINE ORDERABLES Final Result [facility] [address] [place] [address] [phone] * (ABNORMAL) CBC auto differential (03/03/2024 7:57 AM EST) White Blood Count 4.8 4.8 - 10.8 X10*3/uL [facility] Red Blood Count 4.28 4.20 - 5.50 X10*6/uL [facility] Hemoglobin 13.7 12.0 - 16.0 g/dl [facility] Hematocrit 41.6 37.0 - 47.0 % [facility] Mean Corpuscular Volume 97.2 80.0 - 98.0 fL [facility] Mean Corpuscular Hemoglobin 32.0 27.0 - 33.0 pg [facility] Mean Corpuscular HGB Conc 32.9 31.0 - 35.0 g/dl [facility] Red Cell Distribution Width 11.5 11.0 - 16.0 % [facility] Platelet Count 277 160 - 400 X10*3/uL [facility] Mean Platelet Volume 10.1 9.4 - 12.3 fL [facility] Neutrophils Percent Auto 57.9 45 - 73 % [facility] Imm Gran Pct Auto 0.4 0.0 - 0.4 % [facility] Lymphocytes Percent Auto 26.3 20 - 40 % [facility] Monocytes Percent Auto 10.6 2 - 11 % [facility] Eosinophils Percent Auto 4.2(H) 0 - 4 % [facility] Basophils Percent Auto 0.6 0 - 2 % [facility] NRBC Pct Auto 0.0 0.0 - 0.2 /100WBC [facility] Neutrophils Absolute Auto 2.8 2.0 - 8.3 x10*3/uL [facility] Imm Gran Abs Auto 0.02 0.00 - 0.03 X10*3/uL [facility] Lymphocytes Absolute Auto 1.3 1.2 - 4.9 X10*3/uL [facility] Monocytes Absolute Auto 0.5 0.1 - 1.2 X10*3/uL [facility] Eosinophils Absolute Auto 0.2 0.0 - 0.4 X10*3/uL [facility] Basophils Absolute Auto 0.0 0.0 - 0.2 X10*3/uL [facility] NRBC Abs Auto 0.000 0.0 - 0.012 X10*3/uL [facility] Blood Venous blood specimen / Unknown 03/03/2024 7:57 AM EST 03/03/2024 11:17 AM EST Diamond Lepe MD LAB BLOOD ORDERABLES Final Result Performing Organization Address [facility]/ZIP Co de Phone Number [facility] [address] [place] [phone] * Hepatitis C Antibody with Reflex to HCV, RNA, Quantitative, Real-Time PCR (03/03/2024 7:57 AM EST) Hepatitis C Antibody Nonreactive Nonreactive [facility] Comment:Antibodies to HCV no t detected; does not exclude early acuteHCV infection. Blood Venous blood specimen / Unknown 03/03/2024 7:57 AM EST 03/03/2024 11:18 AM EST Diamond Lepe MD LAB BLOOD ORDERABLES Final Result Performing Organization Address [facility] Co de Phone Number [facility] [address] [place] [phone] * HIV-1/2 Antigen and Antibodies, Fourth Generation, with Reflexes (03/03/2024 7:57 AM EST) HIV AB/AG Nonreactive Nonreactive [facility] Comment:HIV-1 p24 Ag and/or HIV-1/HIV-2 Ab not detected.A test result that is nonreactive does not exclude thepossibility of exposure to or infection with HIV-1 and/orHIV-2. Nonreactive results in this assay for individualswith prior exposure to HIV-1 and/or HIV-2 may be due toantigen and antibody levels that are below the limit ofdetection of this assay.[employer] HIV Ag/Ab Combo assay result andsupplemental assay results should be interpreted inconjunction with the patient's clinical presentation,history and other laboratory results. If the results areinconsistent with clinical evidence, additional testing issuggested to confirm the result. Blood Venous blood specimen / Unknown 03/03/2024 7:57 AM EST 03/03/2024 11:18 AM EST us Diamond Lepe MD LAB BLOOD ORDERABLES Final Result Performing Organization Address [facility]/ZIP Co de Phone Number [facility] [address] [place] [address] [phone] * (ABNORMAL) Hemoglobin A1c (03/03/2024 7:57 AM EST) Hemoglobin A1c 6.4(H) <6.0 % [facility] Comment:Hemoglobin A1C Refer ence Range Adults: 4.8 - 6.0 % Non diabetic: < 6.0 % Goal: < 7.0 %Additional Action Suggested: > 8.0 %Note: Hemoglobin A1c results are invalid for patients with abnormal amounts of HbF. Blood transfusions may impact the HbA1c concentration in the patient sample. Estimated Average Glucose 137 mg/dL [facility] Comment:eAG = Estimated ave rage glucose which is %A1C expressed asaverage glucose, using the formula of the B0Q-MttnchzKwawsmg Glucose study (ADAG), Diabetes Care, Vol.31,#8,Oct. 2007 Blood Venous blood specimen / Unknown 03/03/2024 7:57 AM EST 03/03/2024 11:17 AM EST us Diamond Lepe MD LAB BLOOD ORDERABLES Final Result Performing Organization Address [facility]/ZIP Co de Phone Number [facility] [address] [place] [address] [phone] * (ABNORMAL) Lipid Panel, Standard (03/03/2024 7:57 AM EST) Triglycerides 73 <150 mg/dL [facility] Comment:Desirable Triglyceri de: less than 150 mg/dLBorderline High Triglyceride 150-199 mg/dLHigh Triglyceride: 200-499 mg/dLVery High Triglyceride: greater than or equal to 5OO mg/dL Cholesterol 242(H) <200 mg/dL [facility] Comment:Desirable Cholestero l: less than 200 mg/dLBorderline High Cholesterol: 200-239 mg/dLHigh Cholesterol: greater than 239 mg/dL LDL Cholesterol Calculated 167(H) <100 mg/dL [facility] Comment:Desirable LDL: less than 100 mg/dLNear Optimal/Above Optimal LDL: 110- 129 mg/dLBorderline High LDL: 130-159 mg/dLHigh LDL: 160-189 mg/dLVery High LDL: greater than or equal to 190 mg/dL HDL Cholesterol 61 >40 mg/dL [facility] Comment:Desirable HDL: great er than 40 mg/dL Note: This HDL assay may give artificially low results in patients with liver disease. Blood Venous blood specimen / Unknown 03/03/2024 7:57 AM EST 03/03/2024 11:18 AM EST us Diamond Lepe MD LAB BLOOD ORDERABLES Final Result [facility] [address] [place] [phone] * (ABNORMAL) Comprehensive Metabolic Panel (03/03/2024 7:57 AM EST) Sodium 142 135 - 145 mmol/L [facility] Potassium 3.9 3.3 - 5.1 mmol/L [facility] Chloride 107 96 - 108 mmol/L [facility] Carbon Dioxide 30(H) 22 - 29 mmol/L [facility] Anion Gap 9(L) 12 - 20 [facility] Urea Nitrogen (BUN) 15 9 - 16 mg/dL [facility] Creatinine, Serum 0.82 0.5 - 1.4 mg/dL [facility] Estimated Glomerular Filt Rate >60 [facility] Comment:Chronic Kidney Disea se: Estimated GFR < 60 mL/min/1.98j0Qvayom Kidney Disease: Estimated GFR < 15 mL/min/1.73m2 Glucose 101 60 - 115 mg/dL [facility] Calcium 9.6 8.4 - 10.2 mg/dL [facility] Bilirubin, Total 0.4 0.0 - 1.0 mg/dL [facility] Aspartate Amino Transferase 25 5 - 31 U/L [facility] Alanine Aminotransferase 15 0 - 31 U/L [facility] Total Protein 6.9 6.5 - 8.0 g/dL [facility] Albumin Level 3.9 3.5 - 5.0 g/dL [facility] Alkaline Phosphatase 62 39 - 117 U/L [facility] Blood Venous blood specimen / Unknown 03/03/2024 7:57 AM EST 03/03/2024 11:18 AM EST us Diamond Lepe MD LAB BLOOD ORDERABLES Final Result Performing Organization Address City/State/[facility] Co de Phone Number [facility] [address] [place] [address] [phone] * POCT Glucose (03/02/2024 1:13 PM EST) Pathologist [facility] Glucose Blood, POC 158 60 - 200 mg/dL QC Media Lot # [id number] Lot# Expiration Date Blood Capillary blood specimen / Unknown 03/02/2024 1:13 PM EST Diamond Lepe MD POINT OF CARE TEST EN TER/EDIT ORDERABLES Final Result * High Sensitivity Troponin I (2024 9:12 AM EST) TROPONIN I HIGH SENSITIVITY <2.7 <3.5 - 17.0 ng/L [facility] Comment:The Hernandez high sens itivity Troponin-I results should beused in conjunction with other diagnostic information suchas ECG, clinical observations and information, and patientsymptoms to aid in the diagnosis of ID. 2024 9:12 AM EST 2024 9:15 AM EST us Generic External Data Provider LAB BLOOD ORDERAB LES Final Result [facility] [address] [place] [phone] * XR Chest 1 View (2024 7:03 AM EST) Anatomical Region Laterality Modality Chest Radiographic Nicky ging 2024 7:03 AM EST Narrative 2024 8:02 AM EST ? [facility] ?[address] ?[place] [address] ?XRay Report ? Signed ? Patient: Eveline Novoa ? MR#: [id number] ? : 1955 ?Acct:[id number] ? Age/Sex: 68 / F ?ADM Date: 01/25/24 ? Loc: HO.ED ? Attending Dr: ? Ordering Physician: Sarah Hdz ?? Date of Service: 01/25/24 ?? Procedure(s): XR chest 1V ?? Accession Number(s): [id number] ? cc: Diamond Ponce MD; Sarah Hdz ? EXAMINATION: ?? XR CHEST ? CLINICAL INFORMATION: ?? Chest pain ? COMPARISON: ?? Chest 02/13/2022 ? TECHNIQUE: ?? Frontal view of the chest was obtained. ? FINDINGS: ?? No significant abnormality is noted involving the heart, lungs, ?? mediastinum, bony thorax or soft tissues. ? XR/XR chest 1V ?? IMPRESSION: ?? Unremarkable chest examination. ? Electronically signed by: ??Oz Khan MD ??2024 07:59 AM EST RP ? Dictated By: ?Erin,Oz S ? Signed By: ?<Electronically signed by Oz Khan MD in OV> ?01/25/24 0759 ? DD/ 07 ? TD/TT: 01/25/24 0716 ? Director Of Women'S Services: MSM ? Procedure Note Donamritater, Image - [address] [address] XRay Report Signed Patient: Eveline Novoa MR#: [id number] : 1955cct:[id number] Age/Sex: 68 / FADM Date: 01/25/24 Loc: HO.ED Attending Dr: Ordering Physician: Sarah Hdz Date of Service: 01/25/24 Procedure(s): XR chest 1V Accession Number(s): [id number] cc: Diamond Ponce MD; Sarah Hdz EXAMINATION: XR CHEST CLINICAL INFORMATION: Chest pain COMPARISON: Chest 02/13/2022 TECHNIQUE: Frontal view of the chest was obtained. FINDINGS: No significant abnormality is noted involving the heart, lungs, mediastinum, bony thorax or soft tissues. XR/XR chest 1V IMPRESSION: Unremarkable chest examination. Electronically signed by: Oz Khan MD 2024 07:59 AM EST Dictated By: Oz Khan MD Signed By: <Electronically signed by Oz Khan MD in OV> 01/25/24 0759 DD/ 0703 TD/TT: 01/25/24 0716 Director Of Women'S Services: TROY [facility] External Provider IMG XR PROCEDURES Final Result * BI Mammogram Screening Tomosynthesis Bilateral (07/14/2023 1:53 PM EDT) Anatomical Region Laterality Modality Breast Bilateral Mammography 07/14/2023 1:53 PM EDT Narrative 08/11/2023 5:10 AM EDT ? [facility] ? [address] ?[place] [address] ? Mammography Report ? Signed ? Patient: Nikolai De Nikhil,Eveline ? MR#: [id number] ? : 1955 ?Acct:[id number] ? Age/Sex: 68 / F ?ADM Date: 07/14/23 ? Loc: HO.MAMMO ? Attending Dr: Diamond Lepe MD ? Ordering Physician: Diamond Ponce MD ?Results: ?? 1Negative ? Date of Service: 07/14/23 ?Follow Up: 1 Year From Orig ?? inal Mammogram ? Procedure(s): MM tomosynthesis screening BI ?? Accession Number(s): [id number] ? cc: Diamond Ponce MD ? EXAMINATION: ?? MM SCREENING DIGITAL BREAST TOMOSYNTHESIS, BILATERAL ? CLINICAL INFORMATION: ? Screening. Asymptomatic. ? COMPARISON: ?? Mammography: This study is compared with prior exams dating back to ?? 2019. ? TECHNIQUE: ?? Digital breast tomosynthesis is performed in both the craniocaudal and ?? mediolateral oblique views along with computer-aided detection (CAD). ?? Synthesized 2D images are generated from the tomosynthesis. ? FINDINGS: ?? There are scattered areas of fibroglandular density (ACR BI-RADS breast ?? composition Category b). ? There are no significant masses, abnormal calcifications, or other ?? abnormalities. ? MM/MM tomosynthesis screening BI ?? IMPRESSION: ?? No mammographic evidence of malignancy. ? ASSESSMENT: ? BI-RADS BI-RADS 1 - Negative ? RECOMMENDATION: ?? Routine annual mammography screening. ? 1 year F/U ? This examination should not preclude the clinical evaluation of a ?? suspicious palpable abnormality. ? This patient's information was entered into a reminder system with a ?? target due date for their next mammogram. ? Dictated By: ?Frannie Davis MD ? Signed By: ?<Electronically signed by Frannie Davis MD in OV> ? 08/11/237 ? DD/ 1353 ? TD/TT: ? Director Of Women'S Services: ? Procedure Note Donotmaria elenainterpreter, Image - 08/11/2023 [facility] [address] [place] [address] Mammography Report Signed Patient: Eveline Novoa MR#: [id number] : 4Acct:[id number] Age/Sex: 68 / FADM Date: 07/14/23 Loc: HO.MAMMO Attending Dr: Diamond Lepe MD Ordering Physician: Diamond Ponce MDResults: 1Negative Date of Service: 07/14/23Follow Up: 1 Year From Orig inal Mammogram Procedure(s): MM tomosynthesis screening BI Accession Number(s): [id number] cc: Diamond Ponce MD EXAMINATION: MM SCREENING DIGITAL BREAST TOMOSYNTHESIS, BILATERAL CLINICAL INFORMATION: Screening. Asymptomatic. COMPARISON: Mammography: This study is compared with prior exams dating back to 2019. TECHNIQUE: Digital breast tomosynthesis is performed in both the craniocaudal and mediolateral oblique views along with computer-aided detection (CAD). Synthesized 2D images are generated from the tomosynthesis. FINDINGS: There are scattered areas of fibroglandular density (ACR BI-RADS breast composition Category b). There are no significant masses, abnormal calcifications, or other abnormalities. MM/MM tomosynthesis screening BI IMPRESSION: No mammographic evidence of malignancy. ASSESSMENT: BI-RADS BI-RADS 1 - Negative RECOMMENDATION: Routine annual mammography screening. 1 year F/U This examination should not preclude the clinical evaluation of a suspicious palpable abnormality. This patient's information was entered into a reminder system with a target due date for their next mammogram. Dictated By: Frannie Davis MD Signed By: <Electronically signed by Frannie Davis MD in OV> 08/11/23 0507 DD/ 1353 TD/TT: Director Of Women'S Services: us Diamond Lepe MD IMG BI PROCEDURES [place] ta Result - Final * Hm Colonoscopy (06/16/2013) us Historical Provider HEALTH MAINTENANCE Final Result from Last 3 Months or Most Recently Relevant to Health Maintenance Insurance - [employer] - [facility] Care Teams Tower Operator Relationship Specialty Start Date End Date Diamond Ponce MD [address] [place] [address] PCP - General Family Medicine 07/01/19
== END 2024-04-19 17:25 | disposition home or self-care (01) ==
PROVIDERS: Emergency Provider Emergency Medicine
DX: R07.9 Chest pain, unspecified (principal); R05.9 Cough, unspecified; E11.9 Type 2 diabetes mellitus without complications; E78.5 Hyperlipidemia, unspecified; Z03.818 Encounter for observation for suspected exposure to other biological agents ruled out; Z79.02 Long term (current) use of antithrombotics/antiplatelets; Z79.899 Other long term (current) drug therapy
CPT/HCPCS: 0241U; 36415; 71046; 80048; 80076; 83690; 84484; 85025; 93005; 99283; 99285

== ENCOUNTER → 2024-04-19 14:43 | Outpatient (BNV) | payer OTHER, SELFPAY | PROVIDERS: Emergency Provider Emergency Medicine; Visit Provider Internal Medicine | DX: R07.9 Chest pain, unspecified (principal) | CPT/HCPCS: 93010 ==

== ENCOUNTER → 2024-04-19 15:06 | Outpatient (BNV) | payer OTHER, SELFPAY | PROVIDERS: Emergency Provider Emergency Medicine; Visit Provider Radiology Diagnostic Radiology | DX: R07.9 Chest pain, unspecified (principal) | CPT/HCPCS: 71046 ==

== ENCOUNTER 2024-05-06 14:08 | Outpatient (REF) | payer OTHER, SELFPAY ==
--- NOTE | ~2024-05-06 | XR_ITS ---
EXAMINATION: XR CHEST CLINICAL INFORMATION: persistent cough COMPARISON: Several priors, most recently 04/19/2024. TECHNIQUE: 2 views of the chest were obtained. FINDINGS: Mild cardiac enlargement. Mediastinal and hilar contours are normal. The lungs are clear bilaterally. There is no pneumothorax or pleural effusion. There is no focal osseous or soft tissue abnormality. Mild degenerative changes of the spine. XR/XR chest 2V IMPRESSION: No active pulmonary disease. Mild cardiac enlargement. Electronically signed by: Charles Hilliard MD 05/06/2024 02:49 PM EST
--- OUTSIDE RECORDS SUMMARY | 2024-05-06 14:13 | XMS_ITS | Encounter Summary ---
Author Organization [facility] Address [address] [facility] [address] [place] [address] Care Team Providers Care Rectifying Attendant Name Role Phone Diamond Ponce MD Primary Care Provide r Encounter Details Date Type Department Care Team (Late st Contact Info) Description 12/11/2022 Orders Only [facility] [address] [place] [address] [phone] Provider, MD aY Social History Tobacco Use Types Packs/Day Years [...] 06/15/2024 1:45 PM EDT Office Visit [facility] [address] [place] [phone] Diamond Ponce MD [address] [place] [address] [phone] documented as of this encounter Procedures Procedure [...] documented as of this encounter Care Teams Rectifying Attendant Relationship Specialty Start Date End Date Diamond Ponce MD [address] [place] [address] PCP - General Family Medicine 07/01/19 documented as of this encounter
--- OUTSIDE RECORDS SUMMARY | 2024-05-06 14:13 | XMS_ITS | Encounter Summary ---
Author Organization [facility] Address [address] [facility] [address] [place] [address] Care Team Providers Care Medical Instrument Cable Fabricator Name Role Phone Diamond Ponce MD Primary Care Provide r Reason for Visit * Reason Onset Date Comments triage 04/23/2022 Encounter Details Date Type Department Care Team ([facility] st Contact Info) Description 04/23/2022 Telephone [facility] [address] [place], [place] [phone] Diamond Ponce MD [address] [place], [place] [phone] triage Social History Tobacco Use Types Packs/Day [...] caller The caller accepted this outcome speaks danish documented in this encounter Plan of Treatment Upcoming Encounters Date Type Department Care Team (Late st Contact Info) Description 06/15/2024 1:45 PM EDT Office Visit [facility] [address] [place] [phone] Diamond Ponce MD [address] [place] [phone] documented as of this encounter Visit Diagnoses Not on filedocumented in this encounter Care Teams Medical Instrument Cable Fabricator Relationship Specialty Start Date End Date Diamond Ponce MD [address] [place] [address] PCP - General Family Medicine 07/01/19 documented as of this encounter
--- OUTSIDE RECORDS SUMMARY | 2024-05-06 14:13 | XMS_ITS | Clinical Summary ---
Author Organization [employer] Address [address] [place] [address] [address] [place] [address] Care Team Providers Care Mill Attendant Name Role Phone Diamond Ponce MD Primary Care Provide r Allergies Active Allergy Reactions Criticality Noted Date Comments Morphine 04/24/2022 confusion Tramadol 08/13/2022 Medications dextran 70-hypromellose (artificial tears) 0.1-0.3 % ophthalmic solutionIndicat ions:Dry eye Administer 1 drop into both eyes [...] in the morning. 05/30/19 22 Active zoster vaccine-recombi nant adjuvanted (Shingrix) 50 MCG/0.5ML vaccine Inject 0.5 [...] spit tid prn pain for 1 week- frisian 150 mL 10/10/19 23 Active Diclofenac Sodium 1 % gelIndications: Costochondritis APPLY 2 GM TOPICALLY TO THE AFFECTED AREA IF NEEDED FOR PAIN 100 g 12/05/19 23 Active omeprazole OTC (PriLOSEC OTC) 20 MG EC tabletIndicatio ns:Pain of upper abdomen Take 2 tablets (40 mg) by mouth before breakfast. Do not crush, chew, or split. 30 tablet 02/08/20 23 Active ketoconazole (Nizoral) 2 % shampoo Apply topically 2 (two) times a week. 100 mL 02/18/20 23 Active glucose blood (FREESTYLE LITE) test stripIndication s:Type 2 diabetes mellitus without complication, without long-term current use of insulin (CMS/HCC) 1 each by Other route every 12 (twelve) hours. 100 each 2 03/13/20 23 Active Lancets miscIndications :Type 2 diabetes mellitus without complication, without long-term current use of insulin (CMS/HCC) 1 each 2 times daily. 100 each 2 03/13/20 23 Active cholecalciferol (Vitamin D-3) 50 MCG (1999 UT) capsuleIndicati ons:Vitamin D deficiency Take 1 capsule by mouth daily 30 capsule 11 08/25/19 24 Active Linzess 290 MCG capsule TAKE 1 CAPSULE BY MOUTH EVERY MORNING WITH A FULL GLASS OF WATER 06/04/19 24 Active docusate sodium (Colace) 100 MG capsuleIndicati ons:Constipatio n, unspecified constipation type Take 1 capsule (100 mg) by mouth at bedtime. 90 capsule 1 11/03/19 24 Active hydrocortisone (Anusol-HC) 2.5 % rectal creamIndication s:External hemorrhoid Insert into the rectum 2 times daily. 28 g 11/03/19 24 Active psyllium (Metamucil Smooth Texture) 58.6 % powderIndicatio ns:Constipation , unspecified constipation type Take 5.12 g (3 g of fiber) by mouth 2 times daily. Start with 1 tsp TID, increase as tolerated 425 g 11 11/03/19 24 025 Active alendronate (Fosamax) 70 MG tabletIndicatio ns:Age-related osteoporosis without current pathological fracture take 1 tablet by mouth once a week with 6 to 8 oz of water 30 min before first food of day. do not lie down for 30 minutes 12 tablet 01/09/20 24 Active Neomycin-Bacitr acin-Polymyxin (Triple Antibiotic) 3.5-400-5000 ointmentIndicat ions:Rash and nonspecific skin eruption APPLY TOPICALLY TO THE AFFECTED AREA(S) EVERY DAY NEEDED 28 g 01/09/20 24 Active hydrocortisone 2.5 % creamIndication s:Dermatitis Apply pea sized amount to skin bid for 1 week 15 g 01/13/20 24 Active triamcinolone (Kenalog) 0.1 % creamIndication s:Dry skin dermatitis Apply topically if needed in the morning and at bedtime (pain and swelling). 30 g 1 03/02/20 24 Active hydrocortisone (Anusol-HC) 2.5 % rectal creamIndication s:Other hemorrhoids Insert into the rectum 2 times daily. 28 g 03/02/20 24 Active atorvastatin (Lipitor) 40 MG tabletIndicatio ns:Essential hypertension TAKE 1 TABLET BY MOUTH ONCE DAILY 90 tablet 1 03/25/19 25 Active Simethicone Ultra Strength 180 MG capsuleIndicati ons:Pain of upper abdomen TAKE 1 CAPSULE BY MOUTH TWICE DAILY AFTER MEALS 60 capsule 04/22/19 25 Active cetirizine (ZyrTEC) 10 MG tabletIndicatio ns:Viral upper respiratory tract infection Take 1 tablet (10 mg) by mouth Once per day. 90 tablet 1 05/06/19 25 Active fluticasone (Flonase) 50 MCG/ACT nasal sprayIndication s:Acute maxillary sinusitis, recurrence not specified Administer 1 spray into each nostril Once per day. 16 g 3 05/06/19 25 025 Active albuterol 108 (90 Base) MCG/ACT inhaler Inhale 2 puffs every 4 (four) hours if needed for wheezing or shortness of breath. 18 g 05/06/19 25 026 Active Spacer/Aero-Hol ding Chambers (AeroChamber Mini Chamber) device Use with albuterol MDI as needed 1 each 05/06/19 25 Active guaiFENesin (Mucinex) 600 MG 12 hr tablet Take 2 tablets (1,200 mg) by mouth if needed in the morning and at bedtime for cough or congestion. Do not crush, chew, or split. 30 tablet 05/06/19 25 026 Active benzonatate (Tessalon Perles) 100 MG capsule Take 1 capsule (100 mg) by mouth if needed in the morning, at noon, and at bedtime for cough for up to 10 days. Do not crush or chew. 30 capsule 05/06/19 25 025 Active ondansetron (Zofran) 4 MG tabletIndicatio ns:Influenza A Take 1 tablet (4 mg) by mouth every 8 (eight) hours if needed for nausea or vomiting for up to 5 days. 15 tablet 05/06/19 25 025 Active acetaminophen (Tylenol 8 Hour) 650 MG ER tablet Take 1 tablet (650 mg) by mouth every 8 (eight) hours if needed for mild pain. Do not crush, chew, or split. 40 tablet 1 05/06/19 25 025 Active Simethicone Ultra Strength 180 MG capsuleIndicati ons:Pain of upper abdomen TAKE 1 CAPSULE BY MOUTH TWICE DAILY AFTER MEALS 60 capsule 02/08/20 23 025 Discontinued(R eorder (will not trigger notification to Pharmacy)) cetirizine (ZyrTEC) 10 MG tabletIndicatio ns:Viral upper respiratory tract infection Take 1 tablet (10 mg) by mouth Once per day. 90 tablet 1 08/25/19 24 025 Discontinued(R eorder (will not trigger notification to Pharmacy)) fluticasone (Flonase) 50 MCG/ACT nasal sprayIndication s:Acute maxillary sinusitis, recurrence not specified Administer 1 spray into each nostril Once per day. 16 g 2 12/09/19 24 025 Discontinued(R eorder (will not trigger notification to Pharmacy)) acetaminophen (Tylenol) 500 MG tablet Take 1 tablet (500 mg) by mouth every 6 (six) hours if needed for mild pain for up to 20 doses. 20 tablet 01/27/20 24 025 Discontinued Hospital, Clinic, or Other [...] 06/03/2023 Dyspnea on exertion 05/23/2023 Fractured dental confucianism with loss of materi al 04/02/2023 Encounter [...] Encounters Date Type Department Care Team Description 05/06/2024 1:40 PM EST Office Visit [facility] [address] [place] [phone] Influenza A (Primary Dx); Viral upper respiratory tract infection; Acute maxillary sinusitis, recurrence not specified 04/22/2024 2:15 PM EST Office Visit [facility] [address] [place] [phone] Za Tejada ANP Essential hypertension (Primary Dx); Pain of upper abdomen; Chronic left shoulder pain; Generalized abdominal pain 04/22/2024 Travel 04/20/[address] [address] Diamond Ponce MD Call Back Request 04/19/2024 3:20 PM EST Office Visit [facility] [place] [address] Elvis Matta MD Chest pain, unspecified type (Primary Dx) 03/25/2024 Refill [facility] [place] [address] Diamond Ponce MD Essential hypertension 03/18/2024 1:30 PM EST Office Visit [facility] [address] [place] [address] Oneal Aron, DDS Ill-fitting dentures (Primary Dx) 03/02/2024 1:45 PM EST Office Visit [address] [address] Diamond Ponce MD Dry skin dermatitis (Primary Dx); Type 2 diabetes mellitus without complication, without long-term current use of insulin ([facility]); Dermatitis; Vaginal itching; Other hemorrhoids 03/02/2024 Travel 03/01/2024 Telephone [facility] [address] [place] [phone] Cliff Murdock MA Chart Prep 02/23/2024 3:00 PM EST Office Visit [facility] [place] [place] [address] Aron NoCONIS Ill-fitting dentures (Primary Dx) 02/17/2024 Patient Outreach [address] [address] Diamond Ponce MD Pre-visit Planning ([facility] screening completed on 05/15/2023) from Last 3 Months Immunizations Name Administration Dates Next Due Influenza High-dose Quadrivalent Preservative Fr ee 01/03/2022,04/13/2020 Influenza Injectable Quadriv alant Preservative Free IIV4 MDCK 02/23/2021 Influenza injectable quadrivalent preservative f ree 03/13/2023,12/18/2016 Influenza, High Dose Seasonal, Preservative Free 04/19/2019,02/07/2014 Influenza, Split (incl. purified surface antigen ) 02/27/2012 Pneumococcal Conjugate PCV 20 08/13/2022 Pneumococcal Polysaccharide PPSV23 04/19/2019, RSV Bivalent 04/14/2023 Tdap 02/07/2014 Zoster, Recombinant 04/14/2023,02/10/2023 Family History Medical History [...] Sign Reading Time Taken Comments Blood Pressure 124/76 05/06/2024 1:25 PM EST Pulse 76 05/06/2024 1:25 PM EST Temperature 37.1 ??C (98.8 ??F) 05/06/2024 1:25 PM ES T Respiratory Rate 19 05/06/2024 1:25 PM EST Oxygen Saturation 98% 05/06/2024 1:25 PM EST Inhaled Oxygen Concentration - - Weight 68 kg (150 lb) 05/06/2024 1:25 PM EST Height 149.9 cm (4' 11 ) 03/02/2024 1:12 PM EST Body Mass Index 30.3 03/02/2024 1:12 PM EST Plan of Treatment Upcoming Encounters Date Type Department Care Team (Late st Contact Info) Description 06/15/2024 1:45 PM EDT Office Visit [facility] [address] [place], [place] [phone] Diamond Ponce MD [address] [place] [address] Health Maintenance Due Date Last Done Comments CT Colonography 1955 FIT DNA/Cologuard 1955 FIT 1955 FOBT 1955 Sigmoidoscopy 1955 Colonoscopy 06/17/2023 06/16/2013 Colorectal Cancer Screening 06/17/2023 Dental Oral Exam 07/05/2023 01/02/2023, 11/28/2020 Dental Prophylaxis 07/05/2023 01/02/2023, 12/12/2020 COVID-19 Vaccine ( season) 2023 03/13/2021, 08/11/2020, 07/14/2020 Dental X-Ray: Full Mouth 11/30/2023 11/28/2020 Dental X-Ray: Bitewings 01/04/2024 01/03/20 23, 08/24/2021, 11/28/2020, Additional history exists DTaP/Tdap/Td Vaccines (2 - Td or Tdap) 02/08/2024 02/07/2014 Diabetes: Foot Exam 03/13/2024 03/13/2023, 03/13/2023, 03/13/2023, Additional history exists SDOH Screening 05/15/2024 05/15/2023 Depression Screening 05/22/2024 05/23/2023, 05/23/19 Mammogram 07/13/2024 07/14/2023, 06/22, 07/09/2022, Additional history exists Diabetes: Hemoglobin A1C 09/01/2024 024, 12/09/2023, 05/23/2023, Additional history exists Influenza Vaccine (#1) 2024 , 01/03/2022, 02/23/2021, Additional history exists Postponed from 11/23/2023 (Patient Refused) Alcohol/Substance Use Screening 12/08/2024 12/09/2023 Diabetes: Urine Protein Screening 03/03/2025 03/03/2024, 01/14/2023 Lipid Panel 03/03/2025 03/03/2024, 12/23, 09/11/2021, Additional history exists Tobacco Screening 04/22/2025 04/22/2024 Eye Exam 10/02/2025 10/03/2023, 09/21, 10/03/2023, Additional history exists Pneumococcal Vaccine: 50+ Years Completed 08/13/2022, 04/19/2019, 02/07/2014 RSV Patients [...] Procedure Name Priority Date/Time Associated Diagnosis Comments POCT INFLUENZA B (ID NOW RAPID MOLECULAR) Routine 05/06/2024 1:46 PM EST Influenza A POCT INFLUENZA A (ID NOW RAPID MOLECULAR) Routine 05/06/2024 1:46 PM EST Influenza A POCT RAPID STREP A Routine 05/06/2024 1: 46 PM EST Influenza A POCT RAPID COVID ANTIGEN Routine 05/06/2024 1:46 PM EST Influenza A ECG 12-LEAD Routine 04/19/2024 2:39 PM EST [...] CHARGE VISIT Routine 02/23/2024 3:00 PM EST BI MAMMOGRAM SCREENING TOMOSYNTHESIS BILATERAL Routine 07/14/2023 1:53 PM EDT Full PROPHYLAXIS - ADULT Routine 01/02/2023 3:00 PM EDT Dental calculus BITEWINGS - 4 RADIOGRAPHIC IMAGES Routine 01/02/2023 3:00 PM EDT Tipped teeth Dental calculus Generalized gingival recession PERIODIC ORAL EVALUATION - ESTABLISHED PATIENT Routine 01/02/2023 3:00 PM EDT INTRAORAL - COMPLETE SERIES OF RADIOGRAPHIC IMAGES Routine 11/28/2020 12:00 AM EDT HM COLONOSCOPY Routine 06/16/2013 from Last 3 Months or Most Recently Relevant to Health Maintenance Results * Influenza B (ID NOW Rapid Molecular) (05/06/2024 1:46 PM EST) Influenza B Negative Negative, Indeterminate [facility] Swab 05/06/2024 1:46 PM EST us Doris Dugan DO POINT OF CARE TEST ENTER/TAI T ORDERABLES Final Result Performing Organization Address [facility]/ZIP Co de Phone Number [facility] [address] [place] [phone] * (ABNORMAL) Influenza A (ID NOW Rapid Molecular) (05/06/2024 1:46 PM EST) [facility] Influenza A Positive( A) Negative, Indeterminate [facility] Swab 05/06/2024 1:46 PM EST Doris Dugan DO POINT OF CARE TEST ENTER/TAI T ORDERABLES Final Result Performing Organization Address [facility] Co de Phone Number [facility] [address] [place] [phone] * POCT Rapid COVID Ag (05/06/2024 1:46 PM EST) [facility] Rapid COVID Ag Negative [facility] Swab 05/06/2024 1:46 PM EST Doris Dugan DO POINT OF CARE TEST ENTER/TAI T ORDERABLES Final Result Performing Organization Address [facility] Co de Phone Number [facility] [address] [place] [phone] * POCT rapid strep A manually resulted (05/06/2024 1:46 PM EST) [facility] Rapid Strep A Screen Negative Negative, None Detected [facility] Swab 05/06/2024 1:46 PM EST Doris Kailee DO POINT OF CARE TEST ENTER/TAI T ORDERABLES Final Result Performing Organization Address [facility] Co de Phone Number [facility] [address] [place] [phone] * ECG 12 lead (04/19/2024 2:39 PM EST) Narrative Name, MD Elvis - 04/19/2024 2:39 PM EST Normal sinus rhythm. ??Heart rate of 73. ??No ST segment elevation or depression. ??Q waves in lead III and no change from her baseline Elvis Matta MD ECG ORDERABLES Final Result * Vitamin D, 25-Hydroxy, Total, Immunoassay (03/03/2024 7:57 AM EST) Vitamin D 25-OH Total 42.0 >30 ng/mL [facility] Comment:Health Based Referen ce Values*< 20 ng/mL Cordnbtot11-34 ng/mL Insufficient> 30 ng/mL Sufficient*Jenny RAZO. N [...] Lepe MD LAB BLOOD ORDERABLES Final Result [facility] [address] [place] [phone] * TSH with Reflex to Free T4 (03/03/2024 7:57 AM EST) TSH reflex Free T4 1.72 0.32 - 4.0 uIU/mL [facility] Blood Venous blood specimen / Unknown 03/03/2024 7:57 AM EST 03/03/2024 11:18 AM EST Diamond Lepe MD LAB BLOOD ORDERABLES Final Result Performing Organization Address [facility]/ZIP Co de Phone Number [facility] [address] [place] [phone] * Albumin, Random Urine W/Creatinine (03/03/2024 7:57 AM EST) Pathologist [facility] Creatinine, Urine 57.95 mg/dL [facility] Microalbumin Urine <5.0 mg/L [facility] Microalbum Creatinine Ratio Ur TNP <30 ug/mg cr [facility] Comment:Unable to calculate albumin/creatinine ratio due to lowmicroalbumin or creatinine result. Urine (Urine, Random) 03/03/2024 7:57 AM EST 03/03/2024 11:16 AM EST us Diamond Lepe MD LAB URINE ORDERABLES Final Result Performing Organization Address [facility] Co de Phone Number [facility] [address] [place] [phone] * (ABNORMAL) CBC auto differential (03/03/2024 7:57 AM EST) [facility] White Blood Count 4.8 4.8 - 10.8 X10*3/uL [facility] Red Blood Count 4.28 4.20 - 5.50 X10*6/uL [facility] Hemoglobin 13.7 12.0 - 16.0 g/dl [facility] Hematocrit 41.6 37.0 - 47.0 % [facility] Mean Corpuscular Volume 97.2 80.0 - 98.0 fL [facility] Mean Corpuscular Hemoglobin 32.0 27.0 - 33.0 pg [facility] Mean Corpuscular HGB Conc 32.9 31.0 - 35.0 g/dl [facility] Red Cell Distribution Width 11.5 11.0 - 16.0 % [facility] Platelet Count 277 160 - 400 X10*3/uL [facility] Mean Platelet Volume 10.1 9.4 - 12.3 fL [facility] Neutrophils Percent Auto 57.9 45 - 73 % [facility] Imm Gran Pct Auto 0.4 0.0 - 0.4 % [facility] Lymphocytes Percent Auto 26.3 20 - 40 % [facility] Monocytes Percent Auto 10.6 2 - 11 % [facility] Eosinophils Percent Auto 4.2(H) 0 - 4 % [facility] Basophils Percent Auto 0.6 0 - 2 % [facility] NRBC Pct Auto 0.0 0.0 - 0.2 /100WBC [facility] Neutrophils Absolute Auto 2.8 2.0 - 8.3 x10*3/uL [facility] Imm Gran Abs Auto 0.02 0.00 - 0.03 X10*3/uL [facility] Lymphocytes Absolute Auto 1.3 1.2 - 4.9 X10*3/uL [facility] Monocytes Absolute Auto 0.5 0.1 - 1.2 X10*3/uL [facility] Eosinophils Absolute Auto 0.2 0.0 - 0.4 X10*3/uL [facility] Basophils Absolute Auto 0.0 0.0 - 0.2 X10*3/uL [facility] NRBC Abs Auto 0.000 0.0 - 0.012 X10*3/uL [facility] Blood Venous blood specimen / Unknown 03/03/2024 7:57 AM EST 03/03/2024 11:17 AM EST us Diamond Lepe MD LAB BLOOD ORDERABLES Final Result [facility] [address] [place] [phone] * Hepatitis C Antibody with Reflex to HCV, RNA, Quantitative, Real-Time PCR (03/03/2024 7:57 AM EST) Hepatitis C Antibody Nonreactive Nonreactive [facility] Comment:Antibodies to HCV no t detected; does not exclude early acuteHCV infection. Blood Venous blood specimen / Unknown 03/03/2024 7:57 AM EST 03/03/2024 11:18 AM EST Diamond Lepe MD LAB BLOOD ORDERABLES Final Result Performing Organization Address [facility]/ZIP Co de Phone Number [facility] [address] [place] [phone] * HIV-1/2 Antigen and Antibodies, Fourth Generation, with Reflexes (03/03/2024 7:57 AM EST) HIV AB/AG Nonreactive Nonreactive [facility] Comment:HIV-1 p24 Ag and/or HIV-1/HIV-2 Ab not detected.A test result that is nonreactive does not exclude thepossibility of exposure to or infection with HIV-1 and/orHIV-2. Nonreactive results in this assay for individualswith prior exposure to HIV-1 and/or HIV-2 may be due toantigen and antibody levels that are below the limit ofdetection of this assay.The [facility] HIV Ag/Ab Combo assay result andsupplemental assay results should be interpreted inconjunction with the patient's clinical presentation,history and other laboratory results. If the results areinconsistent with clinical evidence, additional testing issuggested to confirm the result. Blood Venous blood specimen / Unknown 03/03/2024 7:57 AM EST 03/03/2024 11:18 AM EST us Diamond Lepe MD LAB BLOOD ORDERABLES Final Result Performing Organization Address [facility]/ZIP Co de Phone Number [facility] [address] [place] [phone] * (ABNORMAL) Hemoglobin A1c (03/03/2024 7:57 AM EST) Hemoglobin A1c 6.4(H) <6.0 % [facility] Comment:Hemoglobin A1C Refer ence Range Adults: 4.8 - 6.0 % Non diabetic: < 6.0 % Goal: < 7.0 %Additional Action Suggested: > 8.0 %Note: Hemoglobin A1c results are invalid for patients with abnormal amounts of HbF. Blood transfusions may impact the HbA1c concentration in the patient sample. Estimated Average Glucose 137 mg/dL [facility] Comment:eAG = Estimated ave rage glucose which is %A1C expressed asaverage glucose, using the formula of the D2Z-CjhgirtWevbibi Glucose study (ADAG), Diabetes Care, Vol.31,#8,Oct. 2007 Blood Venous blood specimen / Unknown 03/03/2024 7:57 AM EST 03/03/2024 11:17 AM EST us Diamond Lepe MD LAB BLOOD ORDERABLES Final Result [facility] [address] [place] [phone] * (ABNORMAL) Lipid Panel, Standard (03/03/2024 7:57 AM EST) Triglycerides 73 <150 mg/dL [facility] Comment:Desirable Triglyceri de: less than 150 mg/dLBorderline High Triglyceride 150-199 mg/dLHigh Triglyceride: 200-499 mg/dLVery High Triglyceride: greater than or equal to 5OO mg/dL Cholesterol 242(H) <200 mg/dL [facility] Comment:Desirable Cholestero l: less than 200 mg/dLBorderline High Cholesterol: 200-239 mg/dLHigh Cholesterol: greater than 239 mg/dL LDL Cholesterol Calculated 167(H) <100 mg/dL [facility] Comment:Desirable LDL: less than 100 mg/dLNear Optimal/Above Optimal LDL: 110- 129 mg/dLBorderline High LDL: 130-159 mg/dLHigh LDL: 160-189 mg/dLVery High LDL: greater than or equal to 190 mg/dL HDL Cholesterol 61 >40 mg/dL [facility] Comment:Desirable HDL: great er than 40 mg/dL Note: This HDL assay may give artificially low results in patients with liver disease. Blood Venous blood specimen / Unknown 03/03/2024 7:57 AM EST 03/03/2024 11:18 AM EST us Diamond Lepe MD LAB BLOOD ORDERABLES Final Result [facility] [address] [place] [phone] * (ABNORMAL) Comprehensive Metabolic Panel (03/03/2024 7:57 AM EST) Sodium 142 135 - 145 mmol/L [facility] Potassium 3.9 3.3 - 5.1 mmol/L [facility] Chloride 107 96 - 108 mmol/L [facility] Carbon Dioxide 30(H) 22 - 29 mmol/L [facility] Anion Gap 9(L) 12 - 20 [facility] Urea Nitrogen (BUN) 15 9 - 16 mg/dL [facility] Creatinine, Serum 0.82 0.5 - 1.4 mg/dL [facility] Estimated Glomerular Filt Rate >60 [facility] Comment:Chronic Kidney Disea se: Estimated GFR < 60 mL/min/1.59a0Tdfxgs Kidney Disease: Estimated GFR < 15 mL/min/1.73m2 Glucose 101 60 - 115 mg/dL [facility] Calcium 9.6 8.4 - 10.2 mg/dL [facility] Bilirubin, Total 0.4 0.0 - 1.0 mg/dL [facility] Aspartate Amino Transferase 25 5 - 31 U/L [facility] Alanine Aminotransferase 15 0 - 31 U/L [facility] Total Protein 6.9 6.5 - 8.0 g/dL [facility] Albumin Level 3.9 3.5 - 5.0 g/dL [facility] Alkaline Phosphatase 62 39 - 117 U/L [facility] Blood Venous blood specimen / Unknown 03/03/2024 7:57 AM EST 03/03/2024 11:18 AM EST us Diamond Lepe MD LAB BLOOD ORDERABLES Final Result [facility] [address] [facility] [place] [phone] * POCT Glucose (03/02/2024 1:13 PM EST) Glucose Blood, POC 158 60 - 200 mg/dL QC Media Lot # [id number] Lot# Expiration Date ,025 Blood Capillary blood specimen / Unknown 03/02/2024 1:13 PM EST us Diamond Lepe MD POINT OF CARE TEST EN TER/EDIT ORDERABLES Final Result * BI Mammogram Screening Tomosynthesis Bilateral (07/14/2023 1:53 PM EDT) Anatomical Region Laterality Modality Breast Bilateral Mammography 07/14/2023 1:53 PM EDT Narrative 08/11/2023 5:10 AM EDT ? [facility] ? [address] ?[place] [id number] ? Mammography Report ? Signed ? Patient: Nikolai Do,Eveline ? MR#: [id number] ? : 1955 ?Acct:[id number] ? Age/Sex: 68 / F ?ADM Date: 07/13/ ? Loc: HO.MAMMO ? Attending Dr: Diamond Lepe MD ? Ordering Physician: Diamond Ponce MD ?Results: ?? 1Negative ? Date of Service: 04/ ?Follow Up: 1 Year From Orig ?? inal Mammogram ? Procedure(s): MM tomosynthesis screening BI ?? Accession Number(s): [id number] ? cc: Diamond Ponce MD ? EXAMINATION: [...] 08/11/237 ? DD/ 1353 ? TD/TT: ? Meter And Service Line Inspector: ? Procedure Note Guille, Image - 08/11/2023 [facility] [address] [place] [address] [place] [address] Mammography Report Signed Patient: Eveline Novoa MR#: [id number] : 1955cct:[id number] Age/Sex: 68 / FADM Date: 07/14/23 Loc: HO.MAMMO Attending Dr: Diamond Lepe MD Ordering Physician: Diamond Ponce MDResults: 1Negative Date of Service: 07/14/23Follow Up: 1 Year From Orig inal Mammogram Procedure(s): MM tomosynthesis screening BI Accession Number(s): [id number] cc: Diamond Ponce MD EXAMINATION: MM SCREENING [...] in OV> 08/11/23 0507 DD/ 1353 TD/TT: Meter And Service Line Inspector: us Diamond Lepe MD IMG BI PROCEDURES Tai ta Result - Final * Hm Colonoscopy (06/16/2013) us Historical Provider HEALTH MAINTENANCE Final Result from Last 3 Months or Most Recently Relevant to Health Maintenance Insurance [facility] - SCO DENTAL - [facility] Care Teams Mill Attendant Relationship Specialty Start Date End Date Diamond Ponce MD [address] [place] [address] PCP - General Family Medicine 07/01/19
--- OUTSIDE RECORDS SUMMARY | 2024-05-06 14:13 | XMS_ITS | Encounter Summary ---
Author Organization [employer] Address [address]t [place] [address] Care Team Providers Care Development Specialist Name Role Phone Diamond Ponce MD Primary Care Provide r Encounter Details Date Type Department Care Team ([facility] st Contact Info) Description 05/06/2024 1:40 PM EST Office Visit [facility] [address] [place] [address] Influenza A (Primary Dx); Viral upper respiratory tract infection; Acute maxillary sinusitis, recurrence not specified Social History Tobacco Use Types Packs/Day Years [...] is your housing situation today? I have deniamaranda menjivar 05/15/[address] you [...] (150 lb) 05/06/2024 1:25 PM EST Height - - Body Mass Index 30.3 03/02/2024 1:12 PM EST documented in this encounter Plan of Treatment Upcoming Encounters Date Type Department Care Team (Late st Contact Info) Description 06/15/2024 1:45 PM EDT Office Visit [facility] MEDICINE [address] [place] [address] Diamond Ponce MD [address] [place] [address] Scheduled Orders Name Type Priority Associated Diagnoses Orde r Schedule XR Chest 2 Views Imaging STAT Influenza A Expected: 05/06/2024, Expires: 05/06/2025 documented as of this encounter Procedures Procedure Name Priority Date/Time Associated Diagnosis Comments POCT INFLUENZA B (ID NOW RAPID MOLECULAR) Routine 05/06/2024 1:46 PM EST Influenza A POCT INFLUENZA A (ID NOW RAPID MOLECULAR) Routine 05/06/2024 1:46 PM EST Influenza A POCT RAPID COVID ANTIGEN Routine 05/06/2024 1:46 PM EST Influenza A POCT RAPID STREP A Routine 05/06/2024 1: 46 PM EST Influenza A documented in this encounter Results * Influenza B (ID NOW Rapid Molecular) (05/06/2024 1:46 PM EST) [facility] Influenza B Negative Negative, Indeterminate [facility] Swab 05/06/2024 1:46 PM EST Doris Dugan DO POINT OF CARE TEST ENTER/TAI T ORDERABLES Final Result Performing Organization Address [facility] Co de Phone Number [facility] [address] [place] [phone] * (ABNORMAL) Influenza A (ID NOW Rapid Molecular) (05/06/2024 1:46 PM EST) [facility] Influenza A Positive( A) Negative, Indeterminate [facility] Swab 05/06/2024 1:46 PM EST Doris Dugan DO POINT OF CARE TEST ENTER/TAI T ORDERABLES Final Result Performing Organization Address [facility] Co de Phone Number [facility] [address] [place] [phone] * POCT rapid strep A manually resulted (05/06/2024 1:46 PM EST) [facility] Rapid Strep A Screen Negative Negative, None Detected [facility] Swab 05/06/2024 1:46 PM EST us Doris Dugan DO POINT OF CARE TEST ENTER/TAI T ORDERABLES Final Result Performing Organization Address [facility] Co de Phone Number [facility] [address] [place] [phone] [phone] * POCT Rapid COVID Ag (05/06/2024 1:46 PM EST) Rapid COVID Ag Negative [facility] Swab 05/06/2024 1:46 PM EST Doris Dugan DO POINT OF CARE TEST ENTER/TAI T ORDERABLES Final Result Performing Organization Address [facility] Co de Phone Number [facility] [address] [place] [address] [phone] documented in this encounter Visit Diagnoses Diagnosis Influenza A- Primary Influenza with other respiratory manifestations Viral upper respiratory tract infection Acute upper respiratory infections of unspecified site Acute maxillary sinusitis, recurrence not specified documented in this encounter Additional Health Concerns Assessment Noted Time PHQ-9 Depression Total Score: 0 05/23/19 24 1:38 PM EST documented as of this encounter Care Teams Development Specialist Relationship Specialty Start Date End Date Diamond Ponce MD [address] [place] [phone] PCP - General Family Medicine 07/01/19 documented as of this encounter
--- OUTSIDE RECORDS SUMMARY | 2024-05-06 14:13 | XMS_ITS | Encounter Summary ---
Author Organization [employer] Address [address] [facility] 7t [place] [address] Care Team Providers Care Drawer Hardware Worker Name Role Phone Diamond Ponce MD Primary Care Provide r Reason for Visit * Reason Onset Date Comments Med Refill 04/23/2022 Encounter Details Date Type Department Care Team ([facility] st Contact Info) Description 04/23/2022 Telephone [facility] MEDICINE [address] [place] [address] Diamond Ponce MD [address] [place], [place] [phone] Med Refill Social History Tobacco Use Types [...] Visit [facility] [address] [place] [address] Diamond Ponce MD [address] [place] [address] documented as of this encounter Visit Diagnoses Not on filedocumented in this encounter Care Teams Drawer Hardware Worker Relationship Specialty Start Date End Date Diamond Ponce MD [address] [place] [address] PCP - General Family Medicine 07/01/19 documented as of this encounter
--- OUTSIDE RECORDS SUMMARY | 2024-05-06 14:13 | XMS_ITS | Encounter Summary ---
Author Organization [facility] Address [address] [facility] 7t [place] [address] Care Team Providers Care Switchboard And Control Room Operator Name Role Phone Diamond Ponce MD Primary Care Provide r Encounter Details Date Type Department Care Team (Latest Contact Info) Description 12/12/2020 Abstract [facility] CONVERSIONS Dental, Provider, DDS Social History Tobacco [...] Description 06/15/2024 1:45 PM EDT Office Visit [facility] MEDICINE [address] [place] [address] Diamond Ponce MD [address] [place] [address] documented as of this encounter Visit Diagnoses Not on filedocumented in this encounter Care Teams Switchboard And Control Room Operator Relationship Specialty Start Date End Date Diamond Ponce MD [address] [place] [address] PCP - General Family Medicine 07/01/19 documented as of this encounter
--- OUTSIDE RECORDS SUMMARY | 2024-05-06 14:13 | XMS_ITS | Encounter Summary ---
Author Organization [employer] Address [address] [facility] 7t [place] [address] Care Team Providers Care Sales Order Processor Name Role Phone Diamond Ponce MD Primary Care Provide r Encounter Details Date Type Department Care Team (Latest Contact Info) Description 04/22/2024 Travel Social History Tobacco Use Types Packs/Day Years [...] Description 06/15/2024 1:45 PM EDT Office Visit [facility] MEDICINE [address] [place] [phone] Diamond Ponce MD [address] [place] [address] [phone] documented as of this encounter Visit Diagnoses Not on filedocumented in this encounter Additional Health Concerns Assessment Noted Time PHQ-9 Depression Total Score: 0 05/23/19 24 1:38 PM EST documented as of this encounter Care Teams Sales Order Processor Relationship Specialty Start Date End Date Diamond Ponce MD [address] [place] [address] [phone] PCP - General Family Medicine 07/01/19 documented as of this encounter
--- OUTSIDE RECORDS SUMMARY | 2024-05-06 14:13 | XMS_ITS | Encounter Summary ---
Author Organization [employer] [facility] Address [address] [facility] 7t [place] [address] Care Team Providers Care Body Shop Floorperson Name Role Phone Diamond Ponce MD Primary Care Provide r Encounter Details Date Type Department Care Team (Late st Contact Info) Description 03/29/2022 [facility] Health Information Management [address] [place] [address] Diamond Ponce MD [address] [place] [address] Social History Tobacco Use Types Packs/Day Years [...] Description 06/15/2024 1:45 PM EDT Office Visit [facility] MEDICINE [address] [place] [address] Diamond Ponce MD [address] [place], [place] [phone] documented as of this encounter Visit Diagnoses Not on filedocumented in this encounter Care Teams Body Shop Floorperson Relationship Specialty Start Date End Date Diamond Ponce MD [address] [place] [address] [phone] PCP - General Family Medicine 07/01/19 documented as of this encounter
--- OUTSIDE RECORDS SUMMARY | 2024-05-06 14:13 | XMS_ITS | Encounter Summary ---
Author Organization [employer] Address [address] [facility] 7t [place] [address] Care Team Providers Care Stem Crusher Name Role Phone Diamond Ponce MD Primary Care Provide r Reason for Visit * Reason Onset Date Comments Prior Authorization 03/04/2023 Encounter Details Date Type Department Care Team ([facility] st Contact Info) Description 03/04/2023 Telephone [facility] ADULT DENTAL [address] [place] [address] Aron No DDS [address] [place] [address] Prior Authorization Social History Tobacco Use Types [...] 1:45 PM EDT Office Visit [facility] MEDICINE [address] [place], [place] [phone] Diamond Ponce MD [address] [place] [address] documented as of this encounter Visit Diagnoses Not on filedocumented in this encounter Additional Health Concerns Assessment Noted Time PHQ-9 Depression Total Score: 0 04/24/19 23 2:26 PM EST documented as of this encounter Care Teams Stem Crusher Relationship Specialty Start Date End Date Diamond Ponce MD [address] [place], [place] [phone] PCP - General Family Medicine 07/01/19 documented as of this encounter
--- OUTSIDE RECORDS SUMMARY | 2024-05-06 14:13 | XMS_ITS | Encounter Summary ---
Author Organization [employer] Address [address] [facility] [address]t [place] [address] Care Team Providers Care Funeral Pre Arrangement Specialist Name Role Phone Diamond Ponce MD Primary Care Provide r Reason for Visit * Reason Comments Shortness of Breath Encounter Details Date Type Department Care Team ([facility] st Contact Info) Description 04/19/2024 3:20 PM EST Office Visit [facility] [address] [place], [place] [phone] Name, MD Elvis [address] [place] [address] Chest pain, unspecified type (Primary Dx) Social [...] past 12 months, has t he electric, [employer], oil or water company threatened to shut [...] given verbal orders to call EMS (r/o [place], further workup.) RN given verbal order per Dr. Matta to administer 324mg ASA, given at 1403. PtTW. EMS arrived and given verbal report. Pt to be transported to [facility]. Pt to F/U as needed upon discharge. [...] spit tid prn pain for 1 week- welsh 150 mL 0 Linzess 290 MCG capsule TAKE 1 CAPSULE BY MOUTH EVERY MORNING WITH A FULL GLASS OF WATER Melatonin 3 MG capsule take one at bed time Bbptnkyg-Sgjlcuypup-Plubmpjtk (Triple Antibiotic) 3.5-400-5000 ointment APPLY TOPICALLY TO [...] Description 06/15/2024 1:45 PM EDT Office Visit [facility] MEDICINE [address] [place], [place] [phone] Diamond Ponce MD [address] [place], [place] [phone] documented as of this encounter Procedures Procedure [...] and no change from her baseline Elvis Name ECG ORDERABLES Final Result documented in this encounter Visit Diagnoses Diagnosis Chest pain, unspecified type- Primary documented in this encounter Administered Medications Inactive Administered Medications - up to 3 most recent administrations Medication Order MAR Action Action Date Dose Rate Site aspirin chewable tablet 324 mg 324 mg, Oral, Once, On Fri04/19/24 at 1430, For 1 doseIndications:Chest pain, unspecified type Given 04/19/2024 2:03 PM EST 324 mg documented in this encounter Additional Health Concerns Assessment Noted Time PHQ-9 Depression Total Score: 0 05/23/19 24 1:38 PM EST documented as of this encounter Care Teams Funeral Pre Arrangement Specialist Relationship Specialty Start Date End Date Diamond Ponce MD [address] [place] [address] PCP - General Family Medicine 07/01/19 documented as of this encounter
--- OUTSIDE RECORDS SUMMARY | 2024-05-06 14:13 | XMS_ITS | Encounter Summary ---
Author Organization [employer] Address [address] [facility] 7t [place] [address] Care Team Providers Care Tumor Registrar Name Role Phone Diamond Ponce MD Primary Care Provide r Reason for Referral * Consultation (Routine) - Authorized Specialty Diagnoses / Procedures Referred By Kiel bagley Referred To Contact Pharmacy Diagnoses Essential hypertension Za Tejada ANP [address] [place] [address] Phone: tel: fax: Referral ID Status Reason Start Date Expiration Date Visits Requested Visits Authorized [id number] Authorized Continuity of Care 04/22/2024 04/22/2025 6 6 * Imaging (Urgent) - Authorized Specialty Diagnoses / Procedures Referred By Kiel bagley Referred To Contact Radiology Diagnoses Pain of upper abdomen Generalized abdominal pain Procedures US Abdomen Complete Za Tejada ANP [address] [place] [address] Phone: tel: fax: [address] Phone: tel: fax: Referral ID Status Reason Start Date Expiration Date V isits Requested Visits Authorized [id number] Authorized 04/22/2024 04/22/2025 1 1 Reason for Visit * Reason Comments sick on site Encounter Details Date Type Department Care Team (Late st Contact Info) Description 04/22/2024 2:15 PM EST Office Visit [facility] MEDICINE [address] [place] [address] Za Tejada, ANP [address] [place] [address] Essential hypertension (Primary Dx); Pain of upper abdomen; Chronic left shoulder pain; Generalized abdominal pain Social History Tobacco Use Types Packs/Day Years [...] Sign Reading Time Taken Comments Blood Pressure 150/78 04/22/2024 2:30 PM EST Pulse 73 04/22/2024 2:30 PM EST Temperature 36.6 ??C (97.8 ??F) 04/22/2024 2:30 PM ES T Respiratory Rate 14 04/22/2024 2:30 PM EST Oxygen Saturation 96% 04/22/2024 2:30 PM EST Inhaled Oxygen Concentration - - Weight 66.9 kg (147 lb 6.4 oz) 04/22/2024 2:30 P M EST Height - - Body Mass Index 29.77 03/02/2024 1:12 PM EST documented in this encounter Progress Notes * CARMELO Rosales - 04/22/2024 2:15 PM EST Images from the original note were not included. Subjective Patient ID: Eveline Do is a 69 y.o. female who presents for sick on site. 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 Matta, sent to ED where work up was reassuring. Also had ED visit at [facility] 01/2024 for same. Has left sided abdominal pain noted on multiple previous visits. Previously established / [facility] June for constipation, L abdominal pain. Was rereferred to establish care there but has not had recent appointment. From walk-in visit 04/19/2024: Patient walked in complaining of severe left- sided chest pain with radiation to the left neck. Symptoms are associated with shortness of breath. She was having symptomsat rest during her visit. Her EKG showed normal sinus rhythm with a heart rate of [address] segment elevation or depression. Q waves in lead III are unchanged from her usual baseline. She is not treated for HTN and she does not know of history of CAD but she has h/o DM. From January appt at ED: Patient states she had a recent ECHO and stress test in June 2023 at [place] which they told her was all normal . Appt w/ breast surgery 05/04/24, pt's not sure why she sees breast specialist. Today she tells me the pain is the same. Pain is under L breast. Pain not worse w/ movement of LUE.Pain does get better when she passes gas or burps. Gets worse with deep breath. Does say she has SOB. What she means is that she can't fully take a deep breath. When she walks for long distances thishappens as does when she goes up flight of stairs. Reports constipation and that she takes multiple medications including a powder for this. Linzess, bisacodyl, psyllium, simethicone, docusate, famotidine-all on med list with most recent dispense history greater than 90 days ago. She also says that she does take a medication for hypertension but no medication on dispense history for hypertension in last 12 months. Non-smoker Review of Systems Constitutional: Negative for chills, fatigue and fever. HENT: Negative for congestion and drooling. Respiratory: Positive for shortness of breath. Negative for apnea, cough and wheezing. Cardiovascular: Positive for chest pain. Gastrointestinal: Positive for abdominal pain. Musculoskeletal: Negative for arthralgias. Objective BP (!) 150/78 (BP Location: Right arm, Patient Position: Sitting, BP Cuff Size: Adult) Pulse 73 Temp 97.8 ??F (36.6 ??C) (Temporal) Resp 14 Wt 147 lb 6.4 oz (66.9 kg) SpO2 96% BMI 29.77 kg/m?? Physical Exam Vitals reviewed. Constitutional: General: She is not in acute distress. Appearance: Normal appearance. She is not ill-appearing. HENT: Head: Normocephalic and atraumatic. Eyes: Extraocular Movements: Extraocular movements intact. Pulmonary: Effort: Pulmonary effort is normal. No accessory muscle usage or respiratory distress. Breath sounds: Normal breath sounds. Musculoskeletal: Arms: Comments: Chest wall is tender with palpation to upper left chest and left lower rib cage. ABD: Hyperactive bowel sounds. no hepatosplenomegaly. No palpable mass or hernia. Abdomen is diffusely tender to palpation. Neurological: Mental Status: She is alert and oriented to person, place, and time. Psychiatric: Mood and Affect: Mood normal. Behavior: Behavior normal. Assessment/Plan Diagnoses and all orders for this visit: Essential hypertension Above goal today < 140/80. Continue to encourage low salt diet, regular exercise, home BP monitoring, compliance with medications. Amlodipine on old med list but no dispense hx for this for > 12 mo. Asked MTM to reconcile meds. Patient is not a good historian about medications and fill history does not support what she is telling me about taking blood pressure and GI medications on a regular basis. Call clinic if BP is frequently >150/90 Go to ED/call 911 if > 170/100 and having sx such as SANTOS, visual changes, chest pain, SOB Last renal function: Lab Results Component Value Date GLUCOSE 101 03/03/2024 NA 142 03/03/2024 K 3.9 03/03/2024 CO2 30 (H) 03/03/2024 CL 107 03/03/2024 BUN 15 03/03/2024 CREATININE 0.82 03/03/2024 EGFR >60 03/03/2024 No results found for: MICROALBCREA Lab Results Component Value Date MICROALBCREU TNP 03/03/2024 Pain of upper abdomen Symptoms appear to be originating from abdomen and that she has had similar symptoms for greater than 3 months. She does have chest pain and has had extensive workup at emergency room, walk-in and a stress test last year which she says was normal. On exam the pain is reproducible with palpation of upper chest and left lower rib cage. she is not sure when she is going to see her air transportation provider again. As she still has her gallbladder, which can cause abdominal pain radiating to left shoulder, I am checking labs as below. As she reports that her pain is better when she passes gas or belches, will send simethicone to trial again. She did get this prescribed in past by GI. Will check ultrasound andgave her contact information for gastroenterology to call for a follow-up appointment. - Simethicone Ultra Strength 180 MG capsule; TAKE 1 CAPSULE BY MOUTH TWICE DAILY AFTER MEALS - US Abdomen Complete; Future - Amylase; Future - Lipase; Future - Hepatic Function Panel; Future Chronic left shoulder pain Generalized abdominal pain - US Abdomen Complete; Future Chronic constipation - has linzess, colace, simethicone on med list from GI - gave info to contact today for follow-up appt. documented in this encounter Plan of Treatment Upcoming Encounters Date Type Department Care Team (Late st Contact Info) Description 06/15/2024 1:45 PM EDT Office Visit [facility] MEDICINE [address] [place] [address] Diamond Ponce MD [address] [place] [address] Scheduled Orders Name Type Priority Associated Diagnoses Orde r Schedule US Abdomen Complete Imaging Urgent Pain of upper abdomen Generalized abdominal pain Expected: 04/22/2024, Expires: 04/22/2025 Amylase Lab Routine Pain of upper abdomen Expected: 04/22/2024 (Approximate), Expires: 04/22/2025 Lipase Lab Routine Pain of upper abdomen Expected: 04/22/2024, Expires: 04/22/2025 Hepatic Function Panel Lab Routine Pain of upper abdomen Expected: 04/22/2024 (Approximate), Expires: 04/22/2025 Scheduled Referrals Name Type Priority Associated Diagnoses Orde r Schedule Referral to Pharmacy [facility] Outpatient Referral Routine Essential hypertension Ordered: 04/22/2024 documented as of this encounter Visit Diagnoses Diagnosis Essential hypertension- Primary Unspecified essential hypertension Pain of upper abdomen Chronic left shoulder pain Pain in joint, shoulder region Generalized abdominal pain Abdominal pain, generalized documented in this encounter Additional Health Concerns Assessment Noted Time PHQ-9 Depression Total Score: 0 05/23/19 24 1:38 PM EST documented as of this encounter Care Teams Tumor Registrar Relationship Specialty Start Date End Date Diamond Ponce MD [address] [place] [phone] PCP - General Family Medicine 07/01/19 documented as of this encounter
--- OUTSIDE RECORDS SUMMARY | 2024-05-06 14:13 | XMS_ITS | Encounter Summary ---
Author Organization [employer] Address [address] [facility] 7t [place] [address] Care Team Providers Care Chef French Name Role Phone Diamond Ponce MD Primary Care Provide r Reason for Visit * Reason Onset Date Comments Call Back Request 04/20/2024 Encounter Details Date Type Department Care Team ([facility] st Contact Info) Description 04/20/2024 Telephone [facility] [address] [place] [address] Diamond Ponce MD [address] [place], [place] [phone] Call Back Request Social History Tobacco Use Types Packs/Day Years [...] encounter Miscellaneous Notes * Telephone Encounter - Emelina Hendrix RN - 04/21/2024 12:12 PM EST TC placed to patient [phone] via [employer] ([employer] #[id number]) in regards to below message. Patient reports she does not have chest pain, she has pain under her left breast (rated a 4-5/10). Patient is adamant it is NOT chest pain. Patient reports the pain radiates from under her L breastto her throat. Patient reports when the pain is really strong she takes acetaminophen (which is effective). Patient denies anything making the pain worse. Patient reports she has had this pain for 1 week however the pain was stronger on 04/19/24 therefore she came to the [facility] and provider recommendedED. Patient is requesting to be re- evaluated as cause of chest pain continues to be undetermined. RN scheduled patient for an appointment on 04/22/24 at 2:15pm. Patient agreed to appointment date and time. RN advised patient if chest pain returns or patient becomes SOB to seek ED. RN has scanned ED note into chat * Telephone Encounter - Sergey Menchaca - 04/21/2024 11:02 AM EST Tc from pt returning call regarding message prior. Pt states she is currently with her daughter andprovided her contact number in case she does not respond via her main one. Daughter's phone: [phone] * Telephone Encounter - Emelina Hendrix RN - 04/21/2024 10:44 AM EST Noted. Patient seen at [facility] on 04/19/24 r/t chest pain. [facility] completed labs and EKG which were both WNL, the cause of the patients chest pain was unclear. Patient was discharged home. TC placed to patient [phone] to status check however patient did not answer, RN left VM requesting CB to red team nurses. Patient to f/u PRN. * Telephone Encounter - Moy Weinstein - 04/20/2024 3:23 PM EST Tc from pt stating that she went to the Hospital yesterday and that when she was discharged she wastold to get in Contact with her PCP. Contact pt for more Information at [phone] documented in this encounter Plan of Treatment Upcoming Encounters Date Type Department Care Team (Late st Contact Info) Description 06/15/2024 1:45 PM EDT Office Visit [facility] MED[facility] [address] [place] [address] Diamond Ponce MD [address] [place] [address] documented as of this encounter Visit Diagnoses Not on filedocumented in this encounter Additional Health Concerns Assessment Noted Time PHQ-9 Depression Total Score: 0 05/23/19 24 1:38 PM EST documented as of this encounter Care Teams Chef French Relationship Specialty Start Date End Date Diamond Ponce MD [address] [place] [address] PCP - General Family Medicine 07/01/19 documented as of this encounter
== END 2024-05-06 14:09 | disposition home or self-care (01) ==
LOC: HO.HHCX 14:08
PROVIDERS: Visit Provider Family Medicine
DX: J10.1 Influenza due to other identified influenza virus with other respiratory manifestations (principal)
CPT/HCPCS: 71046

== ENCOUNTER → 2024-05-06 14:09 | Outpatient (BNV) | payer OTHER, SELFPAY | PROVIDERS: Visit Provider Radiology Diagnostic Radiology | DX: R05.3 Chronic cough (principal) | CPT/HCPCS: 71046 ==

== ENCOUNTER 2024-05-07 12:15 | Outpatient (REF) | payer OTHER, SELFPAY ==
--- NOTE | ~2024-05-07 | US_ITS ---
CLINICAL HISTORY: generalized abdominal pain US ABDOMEN COMPLETE Comparison: None Findings: The visualized pancreas is unremarkable. The visualized aorta and inferior vena cava are normal caliber. Atherosclerotic changes in the distal abdominal aorta. The liver is normal in size and echotexture. There is no intrahepatic bile duct dilatation. Common bile duct measures 3.4 mm. The gallbladder is normal. There is no sonographic Pope sign. The main portal vein is antegrade. The right kidney is 10.2 cm in length. Limited visualization of the lower pole of the right kidney. There is a 7 mm midpole cyst. The left kidney is 9.6 cm in length. The spleen is normal. No ascites. IMPRESSION: 1. No cholelithiasis or acute cholecystitis. 2. No biliary ductal dilatation. 3. No hydronephrosis or large shadowing intrarenal calculus. This document has been electronically signed by: Katalina Coto DO on 05/07/2024 16:28:31
--- OUTSIDE RECORDS SUMMARY | 2024-05-07 12:44 | XMS_ITS | Encounter Summary ---
Author Organization [employer] Address [address] [facility] 7t [place] [address] Care Team Providers Care Middle School Art Teacher Name Role Phone Diamond Ponce MD Primary Care Provide r Encounter Details Date Type Department Care Team (Late st Contact Info) Description 05/06/2024 1:40 PM EST Office Visit [facility] [address] [place] [address] Doris Dugan DO [address] [place] [address] Influenza A (Primary Dx); Viral upper respiratory [...] the past 12 months, has t he [employer] gas, oil or water company threatened to [...] documented in this encounter Progress Notes * Doris Dugan, DO - 05/06/2024 1:40 PM EST SUBJECTIVE: Eveline Do is a 69 y.o. year old female who presents for sick visit . She comes to [place] [facility]/o [facility] [place]. She says that she feels bad. Her sx started on Friday. She reports subjective fevers and chills. She has been taking tylenol as needed. Her throat and ears hurts a lot.She has been using cough drops. She has had few episodes of vomiting and diarrhea. She has no appetite but she has been drinking good. She lives alone and has no sick contacts. History provided by: Patient american sign language interpreter used: Yes Flu Symptoms Presenting symptoms: cough, diarrhea, fatigue, fever, headache, nausea, rhinorrhea and sore throat Presenting symptoms: no shortness of breath and no vomiting Associated symptoms: nasal congestion Review of Systems Constitutional: Positive for fatigue and fever. HENT: Positive for congestion, rhinorrhea and sore throat. Respiratory: Positive for cough. Negative for shortness of breath. Gastrointestinal: Positive for diarrhea and nausea. Negative for vomiting. Skin: Negative for rash. Neurological: Positive for headaches. Patient Active Problem List Diagnosis Chronic pain of both shoulders Dementia with behavioral disturbance (CMS/HCC) Early satiety Essential hypertension Hyperlipidemia Mood disorder (CMS/HCC) Type 2 diabetes mellitus without complication (CMS/HCC) Lumbar radiculopathy Acute back pain with sciatica Epigastric pain Hip pain Moderate major depression, single episode (CMS/HCC) Nosebleed Postmenopausal bleeding Prediabetes Sciatica Chronic left shoulder pain Face lesion Oral ulcer Tipped teeth Dental calculus Generalized gingival recession Other headache syndrome Gingival recession, localized Dental caries on smooth surface limited to enamel External hemorrhoid Umbilical pain Encounter for preventive health examination Decreased sensation of foot Fractured dental evangelical with loss of material Dyspnea on exertion Partial edentulism Sore throat Age-related osteoporosis without current pathological fracture Neck pain Acute maxillary sinusitis Colon cancer screening Dermatitis Ill-fitting dentures Dry skin dermatitis Vaginal itching Other hemorrhoids Allergies Allergen Reactions Morphine confusion Tramadol OBJECTIVE Vitals: 05/06/24 1325 BP: 124/76 BP Location: Left arm Patient Position: Sitting BP Cuff Size: Adult Pulse: 76 Resp: 19 Temp: 98.8 ??F (37.1 ??C) TempSrc: Temporal SpO2: 98% Weight: 150 lb (68 kg) Physical Exam Constitutional: General: She is not in acute distress. Appearance: Normal appearance. HENT: Right Ear: Ear canal and external ear normal. A middle ear effusion is present. Left Ear: Ear canal and external ear normal. A middle ear effusion is present. Nose: Congestion and rhinorrhea present. Mouth/Throat: Pharynx: Posterior oropharyngeal erythema present. No oropharyngeal exudate. Cardiovascular: Rate and Rhythm: Normal rate and regular rhythm. Heart sounds: Normal heart sounds. No murmur heard. Pulmonary: Effort: Pulmonary effort is normal. No respiratory distress. Breath sounds: Examination of the right-lower field reveals wheezing. Examination of the left-lowerfield reveals wheezing. Wheezing present. No rhonchi. Comments: Scattered coarse BS Musculoskeletal: Cervical back: Neck supple. No tenderness. Lymphadenopathy: Cervical: No cervical adenopathy. Neurological: General: No focal deficit present. Mental Status: She is alert and oriented to person, place, and time. Cranial Nerves: No cranial nerve deficit. Motor: No weakness. Gait: Gait normal. Psychiatric: Mood and Affect: Mood normal. Office Visit on 05/06/2024 Component Date Value Ref Range Status Rapid COVID Ag 05/06/2024 Negative Final Rapid Strep A Screen 05/06/2024 Negative Negative, None Detected Final Influenza A 05/06/2024 Positive (A) Negative, Indeterminate Final Influenza B 05/06/2024 Negative Negative, Indeterminate Final ASSESSMENT/PLAN Diagnoses and all orders for this visit: Influenza A -provided reassurance -encouraged supportive care measures -referred for CXR r/o underlying PNA -advised pt that she is passed the treatment window for tamiflu -start zyrtec and flonase daily -encouraged mucinex prn -trial tessalon perles to help with cough -cont tylenol as needed -trial albuterol MDI as needed -advised rtc or go to ED if no improvement or sx worsen, she agrees with plans - POCT Rapid COVID Ag - POCT rapid strep A manually resulted - Influenza A (ID NOW Rapid Molecular) - Influenza B (ID NOW Rapid Molecular) - XR Chest 2 Views; Future - ondansetron (Zofran) 4 MG tablet; Take 1 tablet (4 mg) by mouth every 8 (eight) hours if needed for nausea or vomiting for up to 5 days. F/U with PCP as scheduled or sooner prn Current Outpatient Medications: acetaminophen (Tylenol 8 Hour) 650 MG ER tablet, Take 1 tablet (650 mg) by mouth every 8 (eight) hours if needed for mild pain. Do not crush, chew, or split., Disp: 40 tablet, Rfl: 1 albuterol 108 (90 Base) MCG/ACT inhaler, Inhale 2 puffs every 4 (four) hours if needed for wheezingor shortness of breath., Disp: 18 g, Rfl: 0 alendronate (Fosamax) 70 MG tablet, take 1 tablet by mouth once a week with 6 to 8 oz of water 30 min before first food of day. do not lie down for 30 minutes, Disp: 12 tablet, Rfl: 0 Artificial Tear Solution (GenTeal Tears) 0.1-0.2-0.3 % solution, USE 1 DROP IN EACH EYE FOUR TIMES DAILY NEEDED FOR DRY EYES., Disp: , Rfl: atorvastatin (Lipitor) 40 MG tablet, TAKE 1 TABLET BY MOUTH ONCE DAILY, Disp: 90 tablet, Rfl: 1 benzonatate (Tessalon Perles) 100 MG capsule, Take 1 capsule (100 mg) by mouth if needed in the morning, at noon, and at bedtime for cough for up to 10 days. Do not crush or chew., Disp: 30 capsule, Rfl: 0 bisacodyl (Correctol) 5 MG EC tablet, Take 1 tablet by mouth at bed time., Disp: , Rfl: cetirizine (ZyrTEC) 10 MG tablet, Take 1 tablet (10 mg) by mouth Once per day., Disp: 90 tablet, Rfl: 1 chlorhexidine (Periogard) 0.12 % solution, Place 15 mL into mouth between cheek and gum every 12 (twelve) hours., Disp: , Rfl: cholecalciferol (Vitamin D-3) 50 MCG (1999 UT) capsule, Take 1 capsule by mouth daily, Disp: 30 capsule, Rfl: 11 dextran 70-hypromellose (artificial tears) 0.1-0.3 % ophthalmic solution, Administer 1 drop into both eyes if needed in the morning, at noon, in the evening, and at bedtime for dry eyes., Disp: 15 mL, Rfl: 11 Diclofenac Sodium 1 % gel, APPLY 2 GM TOPICALLY TO THE AFFECTED AREA IF NEEDED FOR PAIN, Disp: 100 g, Rfl: 0 docusate sodium (Colace) 100 MG capsule, Take 1 capsule (100 mg) by mouth at bedtime., Disp: 90 capsule, Rfl: 1 famotidine (Pepcid) 40 MG tablet, Take 40 mg by mouth at bedtime., Disp: , Rfl: fluticasone (Flonase) 50 MCG/ACT nasal spray, Administer 1 spray into each nostril Once per day., Disp: 16 g, Rfl: 3 glucose blood (FREESTYLE LITE) test strip, 1 each by Other route every 12 (twelve) hours., Disp: 100 each, Rfl: 2 guaiFENesin (Mucinex) 600 MG 12 hr tablet, Take 2 tablets (1,200 mg) by mouth if needed in the morning and at bedtime for cough or congestion. Do not crush, chew, or split., Disp: 30 tablet, Rfl: 0 hydrocortisone (Anusol-HC) 2.5 % rectal cream, Insert into the rectum 2 times daily., Disp: 28 g, Rfl: 0 hydrocortisone (Anusol-HC) 2.5 % rectal cream, Insert into the rectum 2 times daily., Disp: 28 g, Rfl: 0 hydrocortisone 2.5 % cream, Apply pea sized amount to skin bid for 1 week, Disp: 15 g, Rfl: 0 ketoconazole (Nizoral) 2 % shampoo, Apply topically 2 (two) times a week., Disp: 100 mL, Rfl: 0 Lancets misc, 1 each 2 times daily., Disp: 100 each, Rfl: 2 lidocaine (Lidoderm) 5 % patch, Place 1 patch on the skin at bed time., Disp: , Rfl: lidocaine (Xylocaine) 4 % external solution, 5 ml swish and spit tid prn pain for 1 week- syrian, Disp: 150 mL, Rfl: 0 Linzess 290 MCG capsule, TAKE 1 CAPSULE BY MOUTH EVERY MORNING WITH A FULL GLASS OF WATER, Disp: , Rfl: Melatonin 3 MG capsule, take one at bed time, Disp: , Rfl: Iscguofi-Twhxzebbha-Owqqibwxj (Triple Antibiotic) 3.5-400-5000 ointment, APPLY TOPICALLY TO THE AFFECTED AREA(S) EVERY DAY NEEDED, Disp: 28 g, Rfl: 0 omeprazole OTC (PriLOSEC OTC) 20 MG EC tablet, Take 2 tablets (40 mg) by mouth before breakfast. Donot crush, chew, or split., Disp: 30 tablet, Rfl: 0 ondansetron (Zofran) 4 MG tablet, Take 1 tablet (4 mg) by mouth every 8 (eight) hours if needed fornausea or vomiting for up to 5 days., Disp: 15 tablet, Rfl: 0 psyllium (Metamucil Smooth Texture) 58.6 % powder, Take 5.12 g (3 g of fiber) by mouth 2 times daily. Start with 1 tsp TID, increase as tolerated, Disp: 425 g, Rfl: 11 sennosides (Senokot) 8.6 MG tablet, Take 1 tablet by mouth in the morning., Disp: , Rfl: Simethicone Ultra Strength 180 MG capsule, TAKE 1 CAPSULE BY MOUTH TWICE DAILY AFTER MEALS, Disp: 60 capsule, Rfl: 0 Sore Throat 15-3.6 MG, DISSOLVE 1 LOZENGE IN MOUTH EVERY 3 HOURS NEEDED FOR SORE THROAT, Disp: ,Rfl: Spacer/Aero-Holding Chambers (AeroChamber Mini Chamber) device, Use with albuterol MDI as needed, Disp: 1 each, Rfl: 0 triamcinolone (Kenalog) 0.1 % cream, Apply topically if needed in the morning and at bedtime (pain and swelling)., Disp: 30 g, Rfl: 1 TRUEplus Lancets 33G misc, TEST BLOOD SUGAR TWICE DAILY DIRECTED, Disp: , Rfl: zoster vaccine-recombinant adjuvanted (Shingrix) 50 MCG/0.5ML vaccine, Inject 0.5 mL into the shoulder, thigh, or buttocks., Disp: , Rfl: documented in this encounter Plan of Treatment Upcoming Encounters Date Type Department Care Team (Late st Contact Info) Description 06/15/2024 1:45 PM EDT Office Visit [facility] MEDICINE [address] [place] [phone] Diamond Ponce MD [address] [place] [address] documented as of this encounter Procedures Procedure Name Priority Date/Time Associated Diagnosis Comments XR CHEST 2 VIEWS STAT 05/06/2024 2:09 PM EST Influenza A POCT INFLUENZA B (ID NOW RAPID MOLECULAR) Routine 05/06/2024 1:46 PM EST Influenza A POCT INFLUENZA A (ID NOW RAPID MOLECULAR) Routine 05/06/2024 1:46 PM EST Influenza A POCT RAPID COVID ANTIGEN Routine 05/06/2024 1:46 PM EST Influenza A POCT RAPID STREP A Routine 05/06/2024 1: 46 PM EST Influenza A documented in this encounter Results * XR Chest 2 Views (05/06/2024 2:09 PM EST) Anatomical Region Laterality Modality Chest Radiographic Nicky ging 05/06/2024 2:09 PM EST Narrative 05/06/2024 2:52 PM EST ?[facility] ?[address] ?[place] [address] ?XRay Report ? Signed ? Patient: Eveline Novoa ? MR#: [id number] ? : 1955 ?Acct:[id number] ? Age/Sex: 69 / F ?ADM Date: 05/06/24 ? Loc: HO.HHCX ? Attending Dr: Doris Dugan DO ? Ordering Physician: Doris Dugan DO ?? Date of Service: 05/06/24 ?? Procedure(s): XR chest 2V ?? Accession Number(s): [id number] ? cc: Doris Dugan DO ? EXAMINATION: ?? XR CHEST ? CLINICAL INFORMATION: ?? persistent cough ? COMPARISON: ?? Several priors, most recently 04/19/2024. ? TECHNIQUE: ?? 2 views of the chest were obtained. ? FINDINGS: ?? Mild cardiac enlargement. Mediastinal and hilar contours are normal. ? The lungs are clear bilaterally. There is no pneumothorax or pleural ?? effusion. ? There is no focal osseous or soft tissue abnormality. Mild degenerative ?? changes of the spine. ? XR/XR chest 2V ?? IMPRESSION: ?? No active pulmonary disease. ?? Mild cardiac enlargement. ? Electronically signed by: ??Charles Hilliard MD ??05/06/2024 02:49 PM EST RP ? Dictated By: ?Charles Hilliard MD ? Signed By: ?<Electronically signed by Charles Hilliard MD in OV> ?05/06/24 1449 ? DD/ 1409 ? TD/TT: 05/06/24 1420 ? Laundry Operator Wash Room: ? Procedure Note Donotuseinterpreter, Image - 05/06/2024 [facility] [address] [place] [address] XRay Report Signed Patient: Eveline Novoa MR#: [id number] : 4Acct:[id number] Age/Sex: 69 / FADM Date: 05/06/24 [facility] Attending Dr: Doris Dugan DO Ordering Physician: Doris Dugan DO Date of Service: 05/06/24 Procedure(s): XR chest 2V Accession Number(s): [id number] cc: Doris Dugan DO EXAMINATION: XR CHEST CLINICAL INFORMATION: persistent cough COMPARISON: Several priors, most recently 04/19/2024. TECHNIQUE: 2 views of the chest were obtained. FINDINGS: Mild cardiac enlargement. Mediastinal and hilar contours are normal. The lungs are clear bilaterally. There is no pneumothorax or pleural effusion. There is no focal osseous or soft tissue abnormality. Mild degenerative changes of the spine. XR/XR chest 2V IMPRESSION: No active pulmonary disease. Mild cardiac enlargement. Electronically signed by: Charles Hilliard MD 05/06/2024 02:49 PM EST Dictated By: Charles Hilliard MD Signed By: <Electronically signed by Charles Hilliard MD in OV> 05/06/24 1449 DD/ 1409 TD/TT: 05/06/24 1420 Laundry Operator Wash Room: us Doris Dugan DO IMG XR PROCEDURES Final Resu lt * Influenza B (ID NOW Rapid Molecular) (05/06/2024 1:46 PM EST) Influenza B Negative Negative, Indeterminate [facility] Swab 05/06/2024 1:46 PM EST Doris Dugan DO POINT OF CARE TEST ENTER/TAI T ORDERABLES Final Result Performing Organization Address City/[facility]/ZIP Co de Phone Number [facility] [address] [place] [phone] * (ABNORMAL) Influenza A (ID NOW Rapid Molecular) (05/06/2024 1:46 PM EST) [facility] Influenza A Positive( A) Negative, Indeterminate [facility] Swab 05/06/2024 1:46 PM EST Doris Dugan DO POINT OF CARE TEST ENTER/TAI T ORDERABLES Final Result Performing Organization Address [facility] Co de Phone Number [facility] [address] [place] [phone] * POCT rapid strep A manually resulted (05/06/2024 1:46 PM EST) [facility] Rapid Strep A Screen Negative Negative, None Detected [facility] Swab 05/06/2024 1:46 PM EST Doris Dugan DO POINT OF CARE TEST ENTER/TAI T ORDERABLES Final Result Performing Organization Address [facility] Co de Phone Number [facility] [address] [place] [phone] * POCT Rapid COVID Ag (05/06/2024 1:46 PM EST) [facility] Rapid COVID Ag Negative [facility] Swab 05/06/2024 1:46 PM EST Doris Dugan DO POINT OF CARE TEST ENTER/TAI T ORDERABLES Final Result Performing Organization Address [facility] Co de Phone Number [facility] [address] [place] [phone] documented in this encounter Visit Diagnoses Diagnosis Influenza A- Primary Influenza with other respiratory manifestations Viral upper respiratory tract infection Acute upper respiratory infections of unspecified site Acute maxillary sinusitis, recurrence not specified documented in this encounter Additional Health Concerns Assessment Noted Time PHQ-9 Depression Total Score: 0 05/23/19 24 1:38 PM EST documented as of this encounter Care Teams Middle School Art Teacher Relationship Specialty Start Date End Date Diamond Ponce MD [address] [place] [address] PCP - General Family Medicine 07/01/19 documented as of this encounter
--- OUTSIDE RECORDS SUMMARY | 2024-05-07 12:44 | XMS_ITS | Encounter Summary ---
Author Organization [employer] Address [address] [facility] 7t [place] [address] Care Team Providers Care Welding Machine Setter Name Role Phone Diamond Ponce MD Primary Care Provide r Reason for Referral * Consultation (Routine) - Authorized Specialty Diagnoses / Procedures Referred By Kiel bagley Referred To Contact Pharmacy Diagnoses Essential hypertension Za Tejada ANP [address] [place] [address] Phone: tel: fax: Referral ID Status Reason Start Date Expiration Date Visits Requested Visits Authorized [id number] Authorized Continuity of Care 04/22/2024 04/22/2025 6 6 * Imaging (Urgent) - Authorized Specialty Diagnoses / Procedures Referred By Kiel bagley Referred To Contact Radiology Diagnoses Pain of upper abdomen Generalized abdominal pain Procedures US Abdomen Complete Za Tejada ANP [address] [place] [address] Phone: tel: fax: [address] Phone: tel: fax: Referral ID Status Reason Start Date Expiration Date V isits Requested Visits Authorized [id number] Authorized 04/22/2024 04/22/2025 1 1 Reason for Visit * Reason Comments sick on site Encounter Details Date Type Department Care Team (Late st Contact Info) Description 04/22/2024 2:15 PM EST Office Visit [facility] MED[facility] [address] [place] [address] Za Tejada, ANP [address] [place] [address] Essential hypertension (Primary Dx); Pain of upper [...] female who presents for sick on site. [facility] Interpreters utilized for Maltese interpretation # [id number] PMH incl hypertension, hyperlipidemia, type 2 diabetes, chronic shoulder pain bilaterally, depression, dementia, mood disorder, epigastric pain Seen at [facility] 04/19/[address] Matta, sent to ED where work up was reassuring. Also had [place] [facility] [place] for same. Has left sided abdominal pain noted on multiple previous visits. Previously established / [facility] June for constipation, L abdominal pain. [...] and stress test in June 2023 at [place] which they told her was all normal [...] when she is going to see her glass lathe operator again. As she still has her gallbladder, [...] Description 06/15/2024 1:45 PM EDT Office Visit [facility] MED[facility] [address] [place] [address] Diamond Ponce MD [address] [place] [address] Scheduled Orders Name Type Priority Associated Diagnoses [...] documented as of this encounter Care Teams Welding Machine Setter Relationship Specialty Start Date End Date Diamond Ponce MD [address] [place] [phone] PCP - General Family Medicine 07/01/19 documented as of this encounter
--- OUTSIDE RECORDS SUMMARY | 2024-05-07 12:44 | XMS_ITS | Encounter Summary ---
Author Organization [employer] Address [address] [facility] 7t [place] [address] Care Team Providers Care Manager Simulation Name Role Phone Diamond Ponce MD Primary Care Provide r Reason for Visit * Reason Onset Date Comments Med Refill 04/23/2022 Encounter Details Date Type Department Care Team ([facility] st Contact Info) Description 04/23/2022 Telephone [facility] MEDICINE [address] [place] [address] Diamond Ponce MD [address] [place] [address] Med Refill Social History Tobacco Use Types [...] 1:45 PM EDT Office Visit [facility] MED[facility] [address] [place] [address] Diamond Ponce MD [address] [place] [address] documented as of this encounter Visit Diagnoses Not on filedocumented in this encounter Care Teams Manager Simulation Relationship Specialty Start Date End Date Diamond Ponce MD [address] [place] [address] PCP - General Family Medicine 07/01/19 documented as of this encounter
--- OUTSIDE RECORDS SUMMARY | 2024-05-07 12:44 | XMS_ITS | Encounter Summary ---
Author Organization [employer] Address [address] [facility] 7t [place] [address] Care Team Providers Care Pharmacy Order Entry Technician Name Role Phone Diamond Ponce MD Primary Care Provide r Reason for Visit * Reason Onset Date Comments Call Back Request 04/20/2024 Encounter Details Date Type Department Care Team ([facility] st Contact Info) Description 04/20/[address] [facility] [address] [place] [address] Diamond Ponce MD [address] [place], [place] [phone] Call Back Request Social History Tobacco Use [...] 12:12 PM EST TC placed to patient [phone] via [employer] ([employer] #[id number]) in regards to below message. Patient reports [...] on 04/19/24 therefore she came to the [facility] and provider recommendedED. Patient is requesting to [...] respond via her main one. Daughter's phone: [phone] * Telephone Encounter - Emelina Hendrix RN - 04/21/2024 10:44 AM EST Noted. Patient seen at [facility] on 04/19/24 r/t chest pain. [facility] completed labs and EKG which were both WNL, the cause of the patients chest pain was unclear. Patient was discharged home. TC placed to patient [phone] to status check however patient did not [...] PCP. Contact pt for more Information at [phone] documented in this encounter Plan of Treatment Upcoming Encounters Date Type Department Care Team (Late st Contact Info) Description 06/15/2024 1:45 PM EDT Office Visit [facility] [address] [place] [address] Diamond Ponce MD [address] [place] [address] documented as of this encounter Visit Diagnoses Not on filedocumented in this encounter Additional Health Concerns Assessment Noted Time PHQ-9 Depression Total Score: 0 05/23/19 24 1:38 PM EST documented as of this encounter Care Teams Pharmacy Order Entry Technician Relationship Specialty Start Date End Date Diamond Ponce MD [address] [place] [address] PCP - General Family Medicine 07/01/19 documented as of this encounter
--- OUTSIDE RECORDS SUMMARY | 2024-05-07 12:44 | XMS_ITS | Encounter Summary ---
Author Organization [employer] Address [address] [facility] 7t [place] [address] Care Team Providers Care Hogshead Stripper Name Role Phone Diamond Ponce MD Primary [...] Description 06/15/2024 1:45 PM EDT Office Visit [facility] [address] [place] [phone] Diamond Ponce MD [address] [place] [address] [phone] documented as of this encounter Visit Diagnoses Not on filedocumented in this encounter Additional Health Concerns Assessment Noted Time PHQ-9 Depression Total Score: 0 05/23/19 24 1:38 PM EST documented as of this encounter Care Teams Hogshead Stripper Relationship Specialty Start Date End Date Diamond Ponce MD [address] [place] [address] [phone] PCP - General Family Medicine 07/01/19 documented as of this encounter
--- OUTSIDE RECORDS SUMMARY | 2024-05-07 12:44 | XMS_ITS | Encounter Summary ---
Author Organization [facility] Address [address] [facility] 7t [place] [address] Care Team Providers Care De Icer Kit Assembler Name Role Phone Diamond Ponce MD Primary Care Provide r Reason for Visit * Reason Onset Date Comments triage 04/23/2022 Encounter Details Date Type Department Care Team ([facility] st Contact Info) Description 04/23/2022 Telephone [facility] [address] [place], [place] [phone] Diamond Ponce MD [address] [place], [place] [phone] triage Social History Tobacco Use Types Packs/Day [...] caller The caller accepted this outcome speaks togolese documented in this encounter Plan of Treatment Upcoming Encounters Date Type Department Care Team (Late st Contact Info) Description 06/15/2024 1:45 PM EDT Office Visit [facility] [address] [place] [address] Diamond Ponce MD [address] [place] [address] documented as of this encounter Visit Diagnoses Not on filedocumented in this encounter Care Teams De Icer Kit Assembler Relationship Specialty Start Date End Date Diamond Ponce MD [address] [place] [address] PCP - General Family Medicine 07/01/19 documented as of this encounter
--- OUTSIDE RECORDS SUMMARY | 2024-05-07 12:45 | XMS_ITS | Encounter Summary ---
Author Organization [employer] Address [address] [facility] 7t [place] [address] Care Team Providers Care Bag Machine Set Up Operator Name Role Phone Diamond Ponce MD Primary Care Provide r Reason for Visit * Reason Onset Date Comments Prior Authorization 03/04/2023 Encounter Details Date Type Department Care Team ([facility] st Contact Info) Description 03/04/2023 Telephone [facility] [address] [place] [address] Aron No DDS [address] [place] [address] Prior Authorization Social History Tobacco Use Types [...] Description 06/15/2024 1:45 PM EDT Office Visit [facility] [address] [place], [place] [phone] Diamond Ponce MD [address] [place] [address] documented as of this encounter Visit Diagnoses Not on filedocumented in this encounter Additional Health Concerns Assessment Noted Time PHQ-9 Depression Total Score: 0 04/24/19 23 2:26 PM EST documented as of this encounter Care Teams Bag Machine Set Up Operator Relationship Specialty Start Date End Date Diamond Ponce MD [address] [place], [place] [phone] PCP - General Family Medicine 07/01/19 documented as of this encounter
--- OUTSIDE RECORDS SUMMARY | 2024-05-07 12:45 | XMS_ITS | Encounter Summary ---
Author Organization [employer] Address [address] [facility] 7t [place] [address] Care Team Providers Care Cash Office Worker Name Role Phone Diamond Ponce MD Primary Care Provide r Encounter Details Date Type Department Care Team ([facility] st Contact Info) Description 05/06/2024 Telephone [facility] [address] [place] [address] Diamond Ponce MD [address] [place], [place] [phone] Social History Tobacco Use Types Packs/Day Years [...] encounter Miscellaneous Notes * Telephone Encounter - Gini Santana RN - 05/06/2024 4:05 PM EST TC placed to pt via [employer] filler shaker (Sherman ID#[id number]) to inform of below provider message. Pt verbalized understanding and denies questions or concerns at time. ----- Message from Doris Dugan DO sent at 05/06/2024 3:12 PM EST ----- Please let patient know that her CXR showed no PNA. Thank you. documented in this encounter Plan of Treatment Upcoming Encounters Date Type Department Care Team (Late st Contact Info) Description 06/15/2024 1:45 PM EDT Office Visit [facility] [address] [place] [address] Diamond Ponce MD [address] [place], [place] [phone] documented as of this encounter Visit Diagnoses Not on filedocumented in this encounter Additional Health Concerns Assessment Noted Time PHQ-9 Depression Total Score: 0 05/23/19 24 1:38 PM EST documented as of this encounter Care Teams Cash Office Worker Relationship Specialty Start Date End Date Diamond Ponce MD [address] [place] [address] PCP - General Family Medicine 07/01/19 documented as of this encounter
--- OUTSIDE RECORDS SUMMARY | 2024-05-07 12:45 | XMS_ITS | Encounter Summary ---
Author Organization [employer] Address [address] [facility] 7t [place] [address] Care Team Providers Care Manager Test Name Role Phone Diamond Ponce MD Primary Care Provide r Reason for Visit * Reason Comments Shortness of Breath Encounter Details Date Type Department Care Team ([facility] st Contact Info) Description 04/19/2024 3:20 PM EST Office Visit [facility] [address] [place], [place] [phone] Name, MD Elvis [address] [place] [address] Chest pain, unspecified type (Primary Dx) Social [...] past 12 months, has t he electric, Trot, oil or water company threatened to shut [...] given verbal orders to call EMS (r/o OK, further workup.) RN given verbal order per Dr. Matta to administer 324mg ASA, given at 1403. PtTW. EMS arrived and given verbal report. Pt to be transported to [facility]. Pt to F/U as needed upon discharge. [...] spit tid prn pain for 1 week- montenegrin 150 mL 0 Linzess 290 MCG capsule TAKE 1 CAPSULE BY MOUTH EVERY MORNING WITH A FULL GLASS OF WATER Melatonin 3 MG capsule take one at bed time Wjmlzrgv-Sfpkkwkhim-Bcowgvfut (Triple Antibiotic) 3.5-400-5000 ointment APPLY TOPICALLY TO [...] Description 06/15/2024 1:45 PM EDT Office Visit [facility] [address] [place], [place] [phone] Diamond Ponce MD [address] [place], [place] [phone] documented as of this encounter Procedures Procedure [...] documented as of this encounter Care Teams Manager Test Relationship Specialty Start Date End Date Diamond Ponce MD [address] [place] [address] PCP - General Family Medicine 07/01/19 documented as of this encounter
--- OUTSIDE RECORDS SUMMARY | 2024-05-07 12:45 | XMS_ITS | Encounter Summary ---
Author Organization [facility] Address [address] [facility] 7t [place] [address] Care Team Providers Care Phototypesetter Operator Name Role Phone Diamond Ponce MD Primary Care Provide r Encounter Details Date Type Department Care Team (Late st Contact Info) Description 03/29/2022 [facility] Information Management [address] [place] [address] Diamond Ponce MD [address] [place] [address] Social History Tobacco Use Types Packs/Day Years [...] Description 06/15/2024 1:45 PM EDT Office Visit [facility] 230 [place] [address] Diamond Ponce MD [address] [place], [place] [phone] documented as of this encounter Visit Diagnoses Not on filedocumented in this encounter Care Teams Phototypesetter Operator Relationship Specialty Start Date End Date Diamond Ponce MD [address] [place] [phone] PCP - General Family Medicine 07/01/19 documented as of this encounter
--- OUTSIDE RECORDS SUMMARY | 2024-05-07 12:45 | XMS_ITS | Clinical Summary ---
Author Organization [employer] Address [address] [place] [address] 7t [place] [address] Care Team Providers Care Rough Rice Grader Name Role Phone Diamond Ponce MD Primary [...] spit tid prn pain for 1 week- slovenian 150 mL 10/10/19 23 Active Diclofenac Sodium [...] 06/03/2023 Dyspnea on exertion 05/23/2023 Fractured dental yazdanism with loss of materi al 04/02/2023 Encounter [...] Description 05/06/2024 1:40 PM EST Office Visit [facility] [address] [place] [address] Doris Dguan DO Influenza A (Primary Dx); Viral upper respiratory tract infection; Acute maxillary sinusitis, recurrence not specified 05/06/[address] [address] Diamond Ponce MD 05/06/2024 Telephone [facility] [address] [place] [address] Doris Dugan DO 04/22/2024 2:15 PM EST Office Visit [address] [address] Za Tejada ANP Essential hypertension (Primary Dx); Pain of upper abdomen; Chronic left shoulder pain; Generalized abdominal pain 04/22/2024 Travel 04/20/[address] [address] Diamond Ponce MD Call Back Request 04/19/2024 3:20 PM EST Office Visit [facility] [address] [place] [address] Elvis Matta MD Chest pain, unspecified type (Primary Dx) 03/25/[address] [address] Diamond Ponce MD Essential hypertension 03/18/2024 1:30 PM EST Office Visit [facility] [address] [place] [address] Aron No DDS Ill-fitting dentures (Primary Dx) 03/02/2024 1:45 PM EST Office Visit [address] [address] Diamond Ponce MD Dry skin dermatitis (Primary Dx); Type 2 diabetes mellitus without complication, without long-term current use of insulin ([facility]); Dermatitis; Vaginal itching; Other hemorrhoids 03/02/2024 Travel 03/01/[address] [address] Cliff Murdock MA Chart Prep 02/23/2024 3:00 PM EST Office Visit [facility] [address] [place] [address] Aron No DDS Ill-fitting dentures (Primary Dx) 02/17/2024 Patient Outreach [address] [address] Diamond Ponce MD Pre-visit Planning (SDOH screening completed on 05/15/2023) from Last 3 [...] t he electric, gas, oil or water [employer] threatened to shut off services in your [...] Description 06/15/2024 1:45 PM EDT Office Visit [facility] [address] [place] [address] Diamond Ponce MD [address] [place] [address] Health Maintenance Due Date Last Done Comments [...] 12/23, 09/11/2021, Additional history exists Tobacco Screening 05/06/2025 05/06/2024 Eye Exam 10/02/2025 10/03/2023, 09/21, 10/03/2023, Additional [...] Recently Relevant to Health Maintenance Results * XR Chest 2 Views (05/06/2024 2:09 PM EST) Anatomical Region Laterality Modality Chest Radiographic Nicky ging 05/06/2024 2:09 PM EST Narrative 05/06/2024 2:52 PM EST ?[facility] ?[address] ?[place] [address] ?XRay Report ? Signed ? Patient: Eveline Novoa ? MR#: [id number] ? : 1955 ?Acct:[id number] ? Age/Sex: 69 / F ?ADM Date: 05/06/24 ? Loc: HO.HHCX ? Attending Dr: Doris Dugan DO ? Ordering Physician: Doris Dugan DO ?? Date of Service: 05/06/24 ?? Procedure(s): XR chest 2V ?? Accession Number(s): [id number] ? cc: Doris Dugan DO ? EXAMINATION: [...] DD/ 1409 ? TD/TT: 05/06/24 1420 ? Mirror Installer: ? Procedure Note Guille, Image - 05/06/2024 [facility] [address] [place] [address] XRay Report Signed Patient: Eveline Novoa MR#: [id number] : 1955cct:[id number] Age/Sex: 69 / FADM Date: 05/06/24 Loc: HO.HHCX Attending Dr: Doris Dugan DO Ordering Physician: Doris Dugan DO Date of Service: 05/06/24 Procedure(s): XR chest 2V Accession Number(s): [id number] cc: Doris Dugan DO EXAMINATION: XR CHEST [...] 05/06/24 1449 DD/ 1409 TD/TT: 05/06/24 1420 Mirror Installer: us Doris Dugan DO IMG XR PROCEDURES Final Resu lt * Influenza B (ID NOW Rapid Molecular) (05/06/2024 1:46 PM EST) Influenza B Negative Negative, Indeterminate [facility] Swab 05/06/2024 1:46 PM EST us Doris Dugan DO POINT OF CARE TEST ENTER/TAI T ORDERABLES Final Result [facility] [address] [place] [phone] * (ABNORMAL) Influenza A (ID NOW Rapid Molecular) (05/06/2024 1:46 PM EST) [facility] Influenza A Positive( A) Negative, Indeterminate [facility] Swab 05/06/2024 1:46 PM EST Doris Dugan DO POINT OF CARE TEST ENTER/TAI T ORDERABLES Final Result Performing Organization Address [facility] Co de Phone Number [facility] [address] [place] [phone] * POCT Rapid COVID Ag (05/06/2024 1:46 PM EST) [facility] Rapid COVID Ag Negative [facility] Swab 05/06/2024 1:46 PM EST Doris Dugan DO POINT OF CARE TEST ENTER/TAI T ORDERABLES Final Result Performing Organization Address [facility] Co de Phone Number [facility] [address] [place] [phone] * POCT rapid strep A manually resulted (05/06/2024 1:46 PM EST) [facility] Rapid Strep A Screen Negative Negative, None Detected [facility] Swab 05/06/2024 1:46 PM EST Doris Dugan DO POINT OF CARE TEST ENTER/TAI T ORDERABLES Final Result Performing Organization Address [facility] de Phone Number [facility] [address] [place] [phone] * ECG 12 lead (04/19/2024 2:39 [...] Vitamin D 25-OH Total 42.0 >30 ng/mL [facility] Comment:Health Based Referen ce Values*< 20 ng/mL Dotsfxjzo81-87 ng/mL Insufficient> 30 ng/mL Sufficient*Jenny RAZO. N [...] BLOOD ORDERABLES Final Result Performing Organization Address [facility]/ZIP Co de Phone Number [facility] [address] [place] [phone] * TSH with Reflex to Free T4 (03/03/2024 7:57 AM EST) TSH reflex Free T4 1.72 0.32 - 4.0 uIU/mL [facility] Blood Venous blood specimen / Unknown 03/03/2024 7:57 AM EST 03/03/2024 11:18 AM EST Diamond Lepe MD LAB BLOOD ORDERABLES Final Result Performing Organization Address City/[facility]/ZIP Co de Phone Number [facility] [address] [place] [phone] * Albumin, Random Urine W/Creatinine (03/03/2024 7:57 AM EST) Creatinine, Urine 57.95 mg/dL [facility] Microalbumin Urine <5.0 mg/L [facility] Microalbum Creatinine Ratio Ur TNP <30 ug/mg cr [facility] Comment:Unable to calculate albumin/creatinine ratio due to lowmicroalbumin or creatinine result. Urine (Urine, Random) 03/03/2024 7:57 AM EST 03/03/2024 11:16 AM EST us Diamond Lepe MD LAB URINE ORDERABLES Final Result [facility] [address] [place] [phone] * (ABNORMAL) CBC auto differential (03/03/2024 7:57 AM EST) White Blood Count 4.8 4.8 - 10.8 X10*3/uL [facility] Red Blood Count 4.28 4.20 - 5.50 X10*6/uL [facility] Hemoglobin 13.7 12.0 - 16.0 g/dl [facility] Hematocrit 41.6 37.0 - 47.0 % [facility] Mean Corpuscular Volume 97.2 80.0 - 98.0 fL [facility] Mean Corpuscular Hemoglobin 32.0 27.0 - 33.0 pg [facility] Mean Corpuscular HGB Conc 32.9 31.0 - 35.0 g/dl [facility] Red Cell Distribution Width 11.5 11.0 - 16.0 % [facility] Platelet Count 277 160 - 400 X10*3/uL [facility] Mean Platelet Volume 10.1 9.4 - 12.3 fL [facility] Neutrophils Percent Auto 57.9 45 - 73 % [facility] Imm Gran Pct Auto 0.4 0.0 - 0.4 % [facility] Lymphocytes Percent Auto 26.3 20 - 40 % [facility] Monocytes Percent Auto 10.6 2 - 11 % [facility] Eosinophils Percent Auto 4.2(H) 0 - 4 % [facility] Basophils Percent Auto 0.6 0 - 2 % [facility] NRBC Pct Auto 0.0 0.0 - 0.2 /100WBC [facility] Neutrophils Absolute Auto 2.8 2.0 - 8.3 x10*3/uL [facility] Imm Gran Abs Auto 0.02 0.00 - 0.03 X10*3/uL [facility] Lymphocytes Absolute Auto 1.3 1.2 - 4.9 X10*3/uL [facility] Monocytes Absolute Auto 0.5 0.1 - 1.2 X10*3/uL [facility] Eosinophils Absolute Auto 0.2 0.0 - 0.4 X10*3/uL [facility] Basophils Absolute Auto 0.0 0.0 - 0.2 X10*3/uL [facility] NRBC Abs Auto 0.000 0.0 - 0.012 X10*3/uL [facility] Blood Venous blood specimen / Unknown 03/03/2024 7:57 AM EST 03/03/2024 11:17 AM EST us Diamond Lepe MD LAB BLOOD ORDERABLES Final Result [facility] [address] [place] [phone] * Hepatitis C Antibody with Reflex to HCV, RNA, Quantitative, Real-Time PCR (03/03/2024 7:57 AM EST) Hepatitis C Antibody Nonreactive Nonreactive [facility] Comment:Antibodies to HCV no t detected; does not exclude early acuteHCV infection. Blood Venous blood specimen / Unknown 03/03/2024 7:57 AM EST 03/03/2024 11:18 AM EST us Diamond Lepe MD LAB BLOOD ORDERABLES Final Result Performing Organization Address City/[facility]/ZIP Co de Phone Number [facility] [address] [place] [phone] * HIV-1/2 Antigen and Antibodies, Fourth Generation, with Reflexes (03/03/2024 7:57 AM EST) HIV AB/AG Nonreactive Nonreactive [facility] Comment:HIV-1 p24 Ag and/or HIV-1/HIV-2 Ab not detected.A test result that is nonreactive does not exclude thepossibility of exposure to or infection with HIV-1 and/orHIV-2. Nonreactive results in this assay for individualswith prior exposure to HIV-1 and/or HIV-2 may be due toantigen and antibody levels that are below the limit ofdetection of this assay.The [employer] HIV Ag/Ab Combo assay result andsupplemental assay results should be interpreted inconjunction with the patient's clinical presentation,history and other laboratory results. If the results areinconsistent with clinical evidence, additional testing issuggested to confirm the result. Blood Venous blood specimen / Unknown 03/03/2024 7:57 AM EST 03/03/2024 11:18 AM EST us Diamond Lepe MD LAB BLOOD ORDERABLES Final Result Performing Organization Address City/[facility]/ZIP Co de Phone Number [facility] [address] [place] [phone] * (ABNORMAL) Hemoglobin A1c (03/03/2024 7:57 AM EST) Hemoglobin A1c 6.4(H) <6.0 % [facility] Comment:Hemoglobin A1C Refer ence Range Adults: 4.8 - 6.0 % Non diabetic: < 6.0 % Goal: < 7.0 %Additional Action Suggested: > 8.0 %Note: Hemoglobin A1c results are invalid for patients with abnormal amounts of HbF. Blood transfusions may impact the HbA1c concentration in the patient sample. Estimated Average Glucose 137 mg/dL [facility] Comment:eAG = Estimated ave rage glucose which is %A1C expressed asaverage glucose, using the formula of the V3I-OfsielkEleklkb Glucose study (ADAG), Diabetes Care, Vol.31,#8,Oct. 2007 Blood Venous blood specimen / Unknown 03/03/2024 7:57 AM EST 03/03/2024 11:17 AM EST us Diamond Lepe MD LAB BLOOD ORDERABLES Final Result Performing Organization Address City/[facility] Co de Phone Number [facility] [address] [place] [address] [phone] * (ABNORMAL) Lipid Panel, Standard (03/03/2024 7:57 AM EST) Triglycerides 73 <150 mg/dL [facility] Comment:Desirable Triglyceri de: less than 150 mg/dLBorderline High Triglyceride 150-199 mg/dLHigh Triglyceride: 200-499 mg/dLVery High Triglyceride: greater than or equal to 5OO mg/dL Cholesterol 242(H) <200 mg/dL [facility] Comment:Desirable Cholestero l: less than 200 mg/dLBorderline High Cholesterol: 200-239 mg/dLHigh Cholesterol: greater than 239 mg/dL LDL Cholesterol Calculated 167(H) <100 mg/dL [facility] Comment:Desirable LDL: less than 100 mg/dLNear Optimal/Above Optimal LDL: 110- 129 mg/dLBorderline High LDL: 130-159 mg/dLHigh LDL: 160-189 mg/dLVery High LDL: greater than or equal to 190 mg/dL HDL Cholesterol 61 >40 mg/dL [facility] Comment:Desirable HDL: great er than 40 mg/dL Note: This HDL assay may give artificially low results in patients with liver disease. Blood Venous blood specimen / Unknown 03/03/2024 7:57 AM EST 03/03/2024 11:18 AM EST us Diamond Lepe MD LAB BLOOD ORDERABLES Final Result Performing Organization Address City/[facility]/ZIP Co de Phone Number [facility] [address] [place] [phone] * (ABNORMAL) Comprehensive Metabolic Panel (03/03/2024 7:57 AM EST) Sodium 142 135 - 145 mmol/L [facility] Potassium 3.9 3.3 - 5.1 mmol/L [facility] Chloride 107 96 - 108 mmol/L [facility] Carbon Dioxide 30(H) 22 - 29 mmol/L [facility] Anion Gap 9(L) 12 - 20 [facility] Urea Nitrogen (BUN) 15 9 - 16 mg/dL [facility] Creatinine, Serum 0.82 0.5 - 1.4 mg/dL [facility] Estimated Glomerular Filt Rate >60 [facility] Comment:Chronic Kidney Disea se: Estimated GFR < 60 mL/min/1.04w5Dddzqv Kidney Disease: Estimated GFR < 15 mL/min/1.73m2 Glucose 101 60 - 115 mg/dL [facility] Calcium 9.6 8.4 - 10.2 mg/dL [facility] Bilirubin, Total 0.4 0.0 - 1.0 mg/dL [facility] Aspartate Amino Transferase 25 5 - 31 U/L [facility] Alanine Aminotransferase 15 0 - 31 U/L [facility] Total Protein 6.9 6.5 - 8.0 g/dL [facility] Albumin Level 3.9 3.5 - 5.0 g/dL [facility] Alkaline Phosphatase 62 39 - 117 U/L [facility] Blood Venous blood specimen / Unknown 03/03/2024 7:57 AM EST 03/03/2024 11:18 AM EST us Diamond Lepe MD LAB BLOOD ORDERABLES Final Result Performing Organization Address City/[facility]/ZIP Co de Phone Number [facility] [address] [place] [phone] * POCT Glucose (03/02/2024 1:13 PM EST) Glucose Blood, POC 158 60 - 200 mg/dL [employer] Lot # [id number] Lot# Expiration Date , Blood Capillary blood specimen / Unknown 03/02/2024 1:13 PM EST us Diamond Lepe MD POINT OF CARE TEST EN TER/EDIT ORDERABLES Final Result * BI Mammogram Screening Tomosynthesis Bilateral (07/14/2023 1:53 PM EDT) Anatomical Region Laterality Modality Breast Bilateral Mammography 07/14/2023 1:53 PM EDT Narrative 08/11/2023 5:10 AM EDT ? [facility] ? [address] ?[place] [address] ? Mammography Report ? Signed ? Patient: Eveline Novoa ? MR#: [id number] ? : 1955 ?Acct:[id number] ? Age/Sex: 68 / F ?ADM Date: 07/13/24 ? Loc: HO.MAMMO ? Attending Dr: Diamond Lepe MD ? Ordering Physician: Diamond Ponce MD ?Results: ?? 1Negative ? Date of Service: 07/13/24 ?Follow Up: 1 Year From Orig ?? inal Mammogram ? Procedure(s): MM tomosynthesis screening BI ?? Accession Number(s): [id number] ? cc: Diamond Ponce MD ? EXAMINATION: [...] by Frannie Davis MD in OV> ? 08/11/23 0507 ? DD/ 1353 ? TD/TT: ? Mirror Installer: ? Procedure Note Guille, Image - 08/11/2023 [facility] [address] [place] [address] Dr. [place], [place] [address] Mammography Report Signed Patient: Eveline Novoa MR#: [id number] : 4Acct:[id number] Age/Sex: 68 / FADM Date: 07/14/23 Loc: DAVID Attending Dr: Diamond Lepe MD Ordering Physician: Diamond Ponce MDResults: 1Negative Date of Service: 07/14/23Follow Up: 1 Year From Orig inal Mammogram Procedure(s): MM tomosynthesis screening BI Accession Number(s): [id number] cc: Diamond Ponce MD EXAMINATION: MM SCREENING [...] in OV> 08/11/23 0507 DD/ 1353 TD/TT: Mirror Installer: us Diamond Lepe MD IMG BI PROCEDURES Tai ta Result - Final * Hm Colonoscopy (06/16/2013) us Historical Provider HEALTH MAINTENANCE Final Result from Last 3 Months or Most Recently Relevant to Health Maintenance Insurance [address] [place] [id number] [place] [address] - [facility] [address] [place] [address] [phone] [address] [place] [id number] Care Teams Rough Rice Grader Relationship Specialty Start Date End Date Diamond Ponce MD [address] [place] [phone] PCP - General Family Medicine 07/01/19
--- OUTSIDE RECORDS SUMMARY | 2024-05-07 12:45 | XMS_ITS | Encounter Summary ---
Author Organization [employer] Address [address] [facility] [address]t [place] [address] Care Team Providers Care Personnel Recruiter Name Role Phone Diamond Ponce MD Primary Care Provide r Encounter Details Date Type Department Care Team (Late st Contact Info) Description 05/06/2024 Telephone [facility] [address] [place], [place] [phone] Doris Dugan DO [address] [place] [address] Social History Tobacco Use Types Packs/Day Years [...] encounter Miscellaneous Notes * Telephone Encounter - Sharda Rincon RN - 05/06/2024 3:20 PM EST Call placed to patient. Advised patient her chest x-ray showed no pneumonia. All questions answered. Patient verbalizes understanding and agreement with plan of care at this time. ----- Message from Doris Dugan DO sent at 05/06/2024 3:12 PM EST ----- Please let patient know that her CXR showed no PNA. Thank you. ----- Message ----- From: Interface, Ris Results In Sent: 05/06/2024 2:52 PM EST To: Doris Dugan DO * Telephone Encounter - Doris Dugan DO - 05/06/2024 3:05 PM EST Pt seen today in [place] and dx'd with Flu A. Please call pt for 24 hour status check. Thank you. documented in this encounter Plan of Treatment Upcoming Encounters Date Type Department Care Team (Late st Contact Info) Description 06/15/2024 1:45 PM EDT Office Visit [facility] [address] [place], [place] [phone] Diamond Ponce MD [address] [place] [address] documented as of this encounter Visit Diagnoses Not on filedocumented in this encounter Additional Health Concerns Assessment Noted Time PHQ-9 Depression Total Score: 0 05/23/19 24 1:38 PM EST documented as of this encounter Care Teams Personnel Recruiter Relationship Specialty Start Date End Date Diamond Ponce MD [address] [place] [address] [phone] PCP - General Family Medicine 07/01/19 documented as of this encounter
--- OUTSIDE RECORDS SUMMARY | 2024-05-07 12:45 | XMS_ITS | Encounter Summary ---
Author Organization [employer] [facility] Address [address] [facility] 7t [place] [address] Care Team Providers Care Metal Rolling Mill Operator Name Role Phone Diamond Ponce MD Primary Care Provide r Encounter Details Date Type Department Care Team (Late st Contact Info) Description 12/11/2022 Orders Only [facility] [address] [place] [address] [phone] Provider, MD Ya Social History Tobacco Use [...] Description 06/15/2024 1:45 PM EDT Office Visit [facility] [address] [place] [phone] Diamond Ponce MD [address] [place] [address] [phone] documented as of this encounter Procedures Procedure [...] documented as of this encounter Care Teams Metal Rolling Mill Operator Relationship Specialty Start Date End Date Diamond Ponce MD [address] [place] [address] PCP - General Family Medicine 07/01/19 documented as of this encounter
--- OUTSIDE RECORDS SUMMARY | 2024-05-07 12:45 | XMS_ITS | Encounter Summary ---
Author Organization [facility] Address [address] [facility] 7t [place] [address] Care Team Providers Care Can Repairer Name Role Phone Diamond Ponce MD Primary Care Provide r Encounter Details Date Type Department Care Team (Latest Contact Info) Description 12/12/2020 Abstract [facility] Dental, Provider, DDS Social History [...] 1:45 PM EDT Office Visit [facility] [address] [place] [address] Diamond Ponce MD [address] [place] [address] documented as of this encounter Visit Diagnoses Not on filedocumented in this encounter Care Teams Can Repairer Relationship Specialty Start Date End Date Diamond Ponce MD [address] [place] [address] PCP - General Family Medicine 07/01/19 documented as of this encounter
== END 2024-05-07 12:16 | disposition home or self-care (01) ==
LOC: HO.US 12:15
PROVIDERS: PCP Internal Medicine; Visit Provider Nurse Practitioner Primary Care
DX: R10.84 Generalized abdominal pain (principal); R10.10 Upper abdominal pain, unspecified
CPT/HCPCS: 76700

== ENCOUNTER → 2024-05-07 12:17 | Outpatient (BNV) | payer OTHER, SELFPAY | PROVIDERS: PCP Internal Medicine; Visit Provider Radiology Diagnostic Radiology | DX: R10.84 Generalized abdominal pain (principal) | CPT/HCPCS: 76700 ==

== ENCOUNTER 2024-05-25 13:50 | Outpatient (REF) | payer OTHER, SELFPAY ==
[2024-05-25 16:49] LABS: Alanine Aminotransferase 14 U/L (0-31); Amylase 77 U/L (28-100); Aspartate Amino Transferase 24 U/L (5-31); Bilirubin Direct 0.1 mg/dL (0.0-0.5); Bilirubin Total 0.3 mg/dL (0.0-1.0); Lipase 49 U/L (8-78); Total Protein 7.5 g/dL (6.5-8.0)
[2024-05-25 16:53] LABS: Alkaline Phosphatase 68 U/L (39-117)
--- OUTSIDE RECORDS SUMMARY | 2024-05-25 17:27 | XMS_ITS | Encounter Summary ---
Author Organization [employer] Address [address] [facility] 7t [place] [address] Care Team Providers Care Chief Engineer Research Name Role Phone Diamond Ponce MD Primary Care Provide r Encounter Details Date Type Department Care Team ([facility] st Contact Info) Description 05/25/2024 Telephone [facility] [address] [place] [address] Lizbet Vickers, PharmD [address] [place] [address] Social History Tobacco Use Types Packs/Day Years [...] encounter Miscellaneous Notes * Telephone Encounter - Arely Neville LPN - 05/25/2024 2:59 PM EST Triage call returned to patient with BLS Junior . Per RX review today patient reported that she was taking ABT as directed at time of [facility] visit yesterday. Patient taking Amoxicillin that was prescribed last Fall for a UTI. Patient reports that she began ABT that was leftover as she had the FLU. Flu diagnosed on 05/06/24 and resolved as indicated in MD note yesterday. ABT use and Bacterial infection vs viral infections explained to patient. Reaffirmed that she had not been instructed to take ABT that she had a home. Patient verbalized understanding and confirmed she would not take anymore and that she would discard them to avoid confusion. Patient educated on completing all ABT as prescribed for specific diagnosis and not to self treat. Patient agrees. Reviewed with patient that she has active [employer] Insurance and that she may contact the number on her card for home evaluation when illness arises. Patient in agreement with plan. Protocol Used: No Protocol Available (Adult) Protocol-Based Disposition: Home Care Positive Triage Question: * Patient's symptoms are safe to treat at home per nursing judgment * All higher-acuity triage questions were negative Care Advice Discussed: * Reasons To Call Back - New symptoms develop - You become worse documented in this encounter Plan of Treatment Upcoming Encounters Date Type Department Care Team (Late st Contact Info) Description 06/15/2024 1:45 PM EDT Office Visit [facility] [address] [place] [phone] Diamond Ponce MD [address] [place] [phone] 06/29/2024 2:00 PM EDT Telemedicine [address] [address] documented as of this encounter Visit Diagnoses Not on filedocumented in this encounter Additional Health Concerns Assessment Noted Time PHQ-9 Depression Total Score: 0 05/23/19 24 1:38 PM EST documented as of this encounter Care Teams Chief Engineer Research Relationship Specialty Start Date End Date Diamond Ponce MD [address] [place] [phone] PCP - General Family Medicine 07/01/19 documented as of this encounter
--- OUTSIDE RECORDS SUMMARY | 2024-05-25 17:27 | XMS_ITS | Encounter Summary ---
Author Organization [employer] Address [address] [facility] 7t [place] [address] Care Team Providers Care Research & Analytics Manager Name Role Phone Diamond Ponce MD Primary Care Provide r Reason for Visit * Reason Onset Date Comments Med Refill 04/23/2022 Encounter Details Date Type Department Care Team ([facility] st Contact Info) Description 04/23/2022 Telephone [facility] [address] [place] [address] Diamond Ponce MD [address] [place], [place] [phone] Med Refill Social History Tobacco Use Types [...] EDT Office Visit [facility] [address] [place] [phone] Diamond Ponce MD [address] [place] [phone] 06/29/2024 2:00 PM EDT Telemedicine [address] [address] documented as of this encounter Visit Diagnoses Not on filedocumented in this encounter Care Teams Research & Analytics Manager Relationship Specialty Start Date End Date Diamond Ponce MD [address] [place] [phone] PCP - General Family Medicine 07/01/19 documented as of this encounter
--- OUTSIDE RECORDS SUMMARY | 2024-05-25 17:27 | XMS_ITS | Encounter Summary ---
Author Organization [employer] Address [address] [facility] 7t [place] [address] Care Team Providers Care Surgical Device Sales Representative Name Role Phone Diamond Ponce MD Primary Care Provide r Reason for Visit * Reason Comments Abdominal Pain Encounter Details Date Type Department Care Team ([facility] st Contact Info) Description 05/24/2024 2:00 PM EST Office Visit [facility] [address] [place] [address] Daija Garrison MD [address] [place] [address] Pain of upper abdomen (Primary Dx); External hemorrhoid; Other hemorrhoids; Costochondritis Social History Tobacco Use Types Packs/Day Years [...] Sign Reading Time Taken Comments Blood Pressure 138/68 05/24/2024 1:59 PM EST Pulse 73 05/24/2024 1:59 PM EST Temperature 36.7 ??C (98.1 ??F) 05/24/2024 1:59 PM ES T Respiratory Rate 16 05/24/2024 1:59 PM EST Oxygen Saturation 99% 05/24/2024 1:59 PM EST Inhaled Oxygen Concentration - - Weight 68 kg (150 lb) 05/24/2024 1:59 PM EST Height - - Body Mass Index 30.3 03/02/2024 1:12 PM EST documented in this encounter Progress Notes * Daija Garrison MD - 05/24/2024 2:00 PM EST SUBJECTIVE: Eveline Do is a 69 y.o. year old female who presents for Walk In [place] . Denies recent illness, injury, or hospitalization. Acute Concerns: Patient complaining of left upper quadrant and left flank pain for about 3 days following upper respiratory infection with cough (influenza?). She does not have any fever for more than 4 to 5 days, no sore throat or cough. She tells me that she was coughing copiously with URI last week. She denies vomiting, nausea, diarrhea. She is concerned about external hemorrhoids that are not improving with OTC medications. Social History Social History Narrative Not on file Patient Active Problem List Diagnosis Chronic pain of both shoulders Dementia with behavioral disturbance ([facility]/HCC) Early satiety Essential hypertension Hyperlipidemia Mood disorder (CMS/HCC) Type 2 diabetes mellitus without complication (CMS/[facility]) Lumbar radiculopathy Acute back pain with sciatica [...] examination Decreased sensation of foot Fractured dental anabaptism with loss of material Dyspnea on exertion Partial edentulism Sore throat Age-related osteoporosis without current pathological fracture Neck pain Acute maxillary sinusitis Colon cancer screening Dermatitis Ill-fitting dentures Dry skin dermatitis Vaginal itching Other hemorrhoids Pain of upper abdomen Family History Problem Relation Name Age of Onset Blindness Maternal Grandmother Review of Systems Constitutional: Negative for chills, fatigue and fever. HENT: Negative for congestion, ear pain, nosebleeds, rhinorrhea, sinus pressure, sore throat and trouble swallowing. Eyes: Negative for pain and discharge. Respiratory: Negative for cough, chest tightness and shortness of breath. Cardiovascular: Negative for chest pain, palpitations and leg swelling. Gastrointestinal: Positive for abdominal pain, constipation and rectal pain. Negative for blood in stool, diarrhea and nausea. Endocrine: Negative for polydipsia and polyuria. Genitourinary: Negative for dysuria, frequency, genital sores, pelvic pain and vaginal discharge. Musculoskeletal: Negative for back pain and neck pain. Skin: Negative for rash. Allergic/Immunologic: Negative for environmental allergies. Neurological: Negative for dizziness, seizures, weakness, light-headedness and headaches. Hematological: Negative for adenopathy. Psychiatric/Behavioral: Negative for agitation, behavioral problems, self-injury and suicidal ideas. OBJECTIVE: Vitals: 05/24/24 1359 BP: 138/68 Pulse: 73 Resp: 16 Temp: 98.1 ??F (36.7 ??C) SpO2: 99% Physical Exam HENT: Right Ear: Tympanic membrane and ear canal normal. Left Ear: Tympanic membrane and ear canal normal. Mouth/Throat: Mouth: Mucous membranes are moist. Pharynx: No oropharyngeal exudate or posterior oropharyngeal erythema. Eyes: Pupils: Pupils are equal, round, and reactive to light. Cardiovascular: Rate and Rhythm: Regular rhythm. Pulses: Normal pulses. Heart sounds: Normal heart sounds. No murmur heard. Pulmonary: Breath sounds: Normal breath sounds. Abdominal: General: Bowel sounds are normal. Palpations: Abdomen is soft. Tenderness: There is abdominal tenderness (LUQ). Musculoskeletal: General: Normal range of motion. Cervical back: Neck supple. Skin: General: Skin is warm. Neurological: General: No focal deficit present. Mental Status: She is alert and oriented to person, place, and time. Psychiatric: Mood and Affect: Mood normal. Behavior: Behavior normal. Problem List Items Addressed This Visit Pain of upper abdomen - Primary It seems to be muscular, probably related to persistent cough last week. Results of recent abdominal ultrasound were discussed with patient, essentially within normal limits. Advised to return to clinic if she develops fever, unable to retain p.o. Use diclofenac gel to affected area External hemorrhoid Advised to avoid constipation, use raisins, prune juice, flaxseed powder. Use hydrocortisone rectal cream with applicator twice daily after each BM and as needed for rectal pain Other hemorrhoids Relevant Medications hydrocortisone (Anusol-HC) 2.5 % rectal cream Other Visit Diagnoses Costochondritis Apply topical diclofenac as ordered RTC/ed precautions discussed Relevant Medications Diclofenac Sodium 1 % gel Follow Up: Current Outpatient Medications on File Prior to Visit Medication Sig Dispense Refill acetaminophen (Tylenol 8 Hour) 650 MG ER tablet Take 1 tablet (650 mg) by mouth every 8 (eight) hours if needed for mild pain. Do not crush, chew, or split. 40 tablet 1 albuterol 108 (90 Base) MCG/ACT inhaler Inhale 2 puffs every 4 (four) hours if needed for wheezing or shortness of breath. 18 g 0 alendronate (Fosamax) 70 MG tablet take [...] (twelve) hours. cholecalciferol (Vitamin D-3) 50 MCG (1999 UT) capsule Take 1 capsule by mouth daily 30 capsule 11 dextran 70-hypromellose (artificial tears) 0.1-0.3 % ophthalmic solution Administer 1 drop into both eyes if needed in the morning, at noon, in the evening, and at bedtime for dry eyes. 15 mL 11 docusate sodium (Colace) 100 MG capsule Take 1 capsule (100 mg) by mouth at bedtime. 90 capsule 1 famotidine (Pepcid) 40 MG tablet Take 40 mg by mouth at bedtime. fluticasone (Flonase) 50 MCG/ACT nasal spray Administer 1 spray into each nostril Once per day. 16 g 3 glucose blood (FREESTYLE LITE) test strip 1 each by Other route every 12 (twelve) hours. 100 each 2 guaiFENesin (Mucinex) 600 MG 12 hr tablet Take 2 tablets (1,200 mg) by mouth if needed in the morning and at bedtime for cough or congestion. Do not crush, chew, or split. 30 tablet 0 hydrocortisone (Anusol-HC) 2.5 % rectal cream [...] spit tid prn pain for 1 week- belarusian 150 mL 0 Linzess 290 MCG capsule TAKE 1 CAPSULE BY MOUTH EVERY MORNING WITH A FULL GLASS OF WATER Melatonin 3 MG capsule take one at bed time Ixogpxxt-Ggydcbdorv-Vfkuectvn (Triple Antibiotic) 3.5-400-5000 ointment APPLY TOPICALLY TO [...] EVERY 3 HOURS NEEDED FOR SORE THROAT Spacer/Aero-Holding Chambers (AeroChamber Mini Chamber) device Use with albuterol MDI as needed 1 each 0 triamcinolone (Kenalog) 0.1 % cream Apply topically if needed in the morning and at bedtime (pain and swelling). 30 g 1 TRUEplus Lancets 33G misc TEST BLOOD SUGAR TWICE DAILY DIRECTED zoster vaccine-recombinant adjuvanted (Shingrix) 50 MCG/0.5ML vaccine Inject 0.5 mL into the shoulder, thigh, or buttocks. [DISCONTINUED] Diclofenac Sodium 1 % gel APPLY 2 GM TOPICALLY TO THE AFFECTED AREA IF NEEDED FOR PAIN 100 g 0 [DISCONTINUED] hydrocortisone (Anusol-HC) 2.5 % rectal cream Insert into the rectum 2 times daily. 28 g 0 No current facility-administered medications on file prior to visit. documented in this encounter Miscellaneous Notes * Assessment & Plan Note - Daija Garrison MD - 05/24/2024 2:19 PM EST Associated Problem(s): Pain of upper abdomen It seems to be muscular, probably related to persistent cough last week. Results of recent abdominal ultrasound were discussed with patient, essentially within normal limits. Advised to return to clinic if she develops fever, unable to retain p.o. Use diclofenac gel to affected area * Assessment & Plan Note - Daija Garrison MD - 05/24/2024 2:16 PM EST Associated Problem(s): External hemorrhoid Advised to avoid constipation, use raisins, prune juice, flaxseed powder. Use hydrocortisone rectal cream with applicator twice daily after each BM and as needed for rectal pain documented in this encounter Plan of Treatment Upcoming Encounters Date Type Department Care Team (Late st Contact Info) Description 06/15/2024 1:45 PM EDT Office Visit [facility] MED[facility]INE [address] [place] [phone] Diamond Ponce MD [address] [place] [phone] 06/29/2024 2:00 PM EDT Telemedicine [address] [address] documented as of this encounter Visit Diagnoses Diagnosis Pain of upper abdomen- Primary External hemorrhoid External hemorrhoids without mention of complication Other hemorrhoids Costochondritis Tietze's disease documented in this encounter Additional Health Concerns Assessment Noted Time PHQ-9 Depression Total Score: 0 05/23/19 24 1:38 PM EST documented as of this encounter Care Teams Surgical Device Sales Representative Relationship Specialty Start Date End Date Diamond Ponce MD [address] [place] [phone] PCP - General Family Medicine 07/01/19 documented as of this encounter
--- OUTSIDE RECORDS SUMMARY | 2024-05-25 17:27 | XMS_ITS | Encounter Summary ---
Author Organization [email or web address] [facility] Address [address] [facility] 7t [place] [address] Care Team Providers Care Patient Transporter Name Role Phone Diamond Ponce MD Primary Care Provide r Reason for Visit * Reason Onset Date Comments triage 04/23/2022 Encounter Details Date Type Department Care Team ([facility] st Contact Info) Description 04/23/2022 Telephone [facility] [address] [place], [place] [phone] Diamond Ponce MD [address] [place], [place] [phone] triage Social History Tobacco Use Types Packs/Day [...] blue team * Telephone Encounter - Joe Murdock - 04/23/2022 3:50 PM EST Symptoms: Breast Symptoms, Pain - Severe Outcome: Schedule an urgent appointment (within 1 hour) or talk to a nurse or provider soon Reason: No high acuity concerns reported by caller The caller accepted this outcome speaks zimbabwean documented in this encounter Plan of Treatment Upcoming Encounters Date Type Department Care Team (Late st Contact Info) Description 06/15/2024 1:45 PM EDT Office Visit [facility] [address] [place] [phone] Diamond Ponce MD [address] [place] [phone] 06/29/2024 2:00 PM EDT Telemedicine [address] [address] documented as of this encounter Visit Diagnoses Not on filedocumented in this encounter Care Teams Patient Transporter Relationship Specialty Start Date End Date Diamond Ponce MD [address] [place] [phone] PCP - General Family Medicine 07/01/19 documented as of this encounter
--- OUTSIDE RECORDS SUMMARY | 2024-05-25 17:27 | XMS_ITS | Clinical Summary ---
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 15 mL 11 023 Active Melatonin 3 MG capsule take one at bed time 022 Active Artificial Tear Solution (GenTeal Tears) 0.1-0.2-0.3 % solution USE 1 DROP IN EACH EYE FOUR TIMES DAILY NEEDED FOR DRY EYES. 023 Active TRUEplus Lancets 33G misc TEST BLOOD SUGAR TWICE DAILY DIRECTED 023 Active famotidine (Pepcid) 40 MG tablet Take 40 mg by mouth at bedtime. 023 Active glucose blood (FREESTYLE LITE) test stripIndication s:Type 2 diabetes mellitus without complication, without long-term current use of insulin ([facility]) 1 each by Other route every 12 (twelve) hours. 100 each 2 023 Active cholecalciferol (Vitamin D-3) 50 MCG (1999 UT) capsuleIndicati ons:Vitamin D deficiency Take 1 capsule by mouth daily 30 capsule 11 024 Active Linzess 290 MCG capsule TAKE 1 CAPSULE BY MOUTH EVERY MORNING WITH A FULL GLASS OF WATER 024 Active docusate sodium (Colace) 100 MG capsuleIndicati ons:Constipatio n, unspecified constipation type Take 1 capsule (100 mg) by mouth at bedtime. 90 capsule 1 024 Active alendronate (Fosamax) 70 MG tabletIndicatio ns:Age-related osteoporosis without current pathological fracture take 1 tablet by mouth once a week with 6 to 8 oz of water 30 min before first food of day. do not lie down for 30 minutes 12 tablet 024 Active triamcinolone (Kenalog) 0.1 % creamIndication s:Dry skin dermatitis Apply topically if needed in the morning and at bedtime (pain and swelling). 30 g 1 024 Active atorvastatin (Lipitor) 40 MG tabletIndicatio ns:Essential hypertension TAKE 1 TABLET BY MOUTH ONCE DAILY 90 tablet 1 025 Active Simethicone Ultra Strength 180 MG capsuleIndicati ons:Pain of upper abdomen TAKE 1 CAPSULE BY MOUTH TWICE DAILY AFTER MEALS 60 capsule 025 Active cetirizine (ZyrTEC) 10 MG tabletIndicatio ns:Viral upper respiratory tract infection Take 1 tablet (10 mg) by mouth Once per day. 90 tablet 1 025 Active fluticasone (Flonase) 50 MCG/ACT nasal sprayIndication s:Acute maxillary sinusitis, recurrence not specified Administer 1 spray into each nostril Once per day. 16 g 3 025 2024 Active albuterol 108 (90 Base) MCG/ACT inhaler Inhale 2 puffs every 4 (four) hours if needed for wheezing or shortness of breath. 18 g 025 2025 Active Spacer/Aero-Hol ding Chambers (AeroChamber Mini Chamber) device Use with albuterol MDI as needed 1 each 025 Active acetaminophen (Tylenol 8 Hour) 650 MG ER tablet Take 1 tablet (650 mg) by mouth every 8 (eight) hours if needed for mild pain. Do not crush, chew, or split. 40 tablet 1 025 2024 Active hydrocortisone (Anusol-HC) 2.5 % rectal creamIndication s:Other hemorrhoids Insert into the rectum 2 times daily. 28 g 3 025 Active Diclofenac Sodium 1 % gelIndications: Costochondritis APPLY 2 GM TOPICALLY TO THE AFFECTED AREA IF NEEDED FOR PAIN 100 g 025 Active Reguloid 28.3 % powder MIX 1 TABLESPOONFUL IN WATER AND TAKE TWICE DAILY TO THREE TIMES DAILY IF TOLERATED 024 Active magnesium gluconate 250 MG tablet Take 1 tablet by mouth Once per day. Active [place]-3 Fatty Acids (OMEGA 3 500 PO) 1 tablet by mouth every other day Active bisacodyl (Correctol) 5 MG EC tablet Take 1 tablet by mouth at bed time. 017 2024 Discontinued(M ed list cleanup (will not trigger notification to Pharmacy)) chlorhexidine (Periogard) 0.12 % solution Place 15 mL into mouth between cheek and gum every 12 (twelve) hours. 2024 Discontinued(M ed list cleanup (will not trigger notification to Pharmacy)) lidocaine (Lidoderm) 5 % patch Place 1 patch on the skin at bed time. 022 2024 Discontinued(M ed list cleanup (will not trigger notification to Pharmacy)) sennosides (Senokot) 8.6 MG tablet Take 1 tablet by mouth in the morning. 022 2024 Discontinued(M ed list cleanup (will not trigger notification to Pharmacy)) zoster vaccine-recombi nant adjuvanted (Shingrix) 50 MCG/0.5ML vaccine Inject 0.5 mL into the shoulder, thigh, or buttocks. 022 2024 Discontinued(M ed list cleanup (will not trigger notification to Pharmacy)) Sore Throat 15-3.6 MG DISSOLVE 1 LOZENGE IN MOUTH EVERY 3 HOURS NEEDED FOR SORE THROAT 2024 Discontinued(M ed list cleanup (will not trigger notification to Pharmacy)) lidocaine (Xylocaine) 4 % external solution 5 ml swish and spit tid prn pain for 1 week- welsh 150 mL 023 2024 Discontinued(M ed list cleanup (will not trigger notification to Pharmacy)) Diclofenac Sodium 1 % gelIndications: Costochondritis APPLY 2 GM TOPICALLY TO THE AFFECTED AREA IF NEEDED FOR PAIN 100 g 023 2024 Discontinued(R eorder (will not trigger notification to Pharmacy)) omeprazole OTC (PriLOSEC OTC) 20 MG EC tabletIndicatio ns:Pain of upper abdomen Take 2 tablets (40 mg) by mouth before breakfast. Do not crush, chew, or split. 30 tablet 023 2024 Discontinued(M ed list cleanup (will not trigger notification to Pharmacy)) ketoconazole (Nizoral) 2 % shampoo Apply topically 2 (two) times a week. 100 mL 023 2024 Discontinued(M ed list cleanup (will not trigger notification to Pharmacy)) Lancets miscIndications :Type 2 diabetes mellitus without complication, without long-term current use of insulin ([facility]) 1 each 2 times daily. 100 each 2 023 2024 Discontinued(M ed list cleanup (will not trigger notification to Pharmacy)) cetirizine (ZyrTEC) 10 MG tabletIndicatio ns:Viral upper respiratory tract infection Take 1 tablet (10 mg) by mouth Once per day. 90 tablet 1 024 2024 Discontinued(R eorder (will not trigger notification to Pharmacy)) hydrocortisone (Anusol-HC) 2.5 % rectal creamIndication s:External hemorrhoid Insert into the rectum 2 times daily. 28 g 024 2024 Discontinued(M ed list cleanup (will not trigger notification to Pharmacy)) psyllium (Metamucil Smooth Texture) 58.6 % powderIndicatio ns:Constipation , unspecified constipation type Take 5.12 g (3 g of fiber) by mouth 2 times daily. Start with 1 tsp TID, increase as tolerated 425 g 11 024 2024 Discontinued(M ed list cleanup (will not trigger notification to Pharmacy)) fluticasone (Flonase) 50 MCG/ACT nasal sprayIndication s:Acute maxillary sinusitis, recurrence not specified Administer 1 spray into each nostril Once per day. 16 g 2 024 2024 Discontinued(R eorder (will not trigger notification to Pharmacy)) Neomycin-Bacitr acin-Polymyxin (Triple Antibiotic) 3.5-400-5000 ointmentIndicat ions:Rash and nonspecific skin eruption APPLY TOPICALLY TO THE AFFECTED AREA(S) EVERY DAY NEEDED 28 g 024 2024 Discontinued(M ed list cleanup (will not trigger notification to Pharmacy)) hydrocortisone 2.5 % creamIndication s:Dermatitis Apply pea sized amount to skin bid for 1 week 15 g 024 2024 Discontinued(M ed list cleanup (will not trigger notification to Pharmacy)) acetaminophen (Tylenol) 500 MG tablet Take 1 tablet (500 mg) by mouth every 6 (six) hours if needed for mild pain for up to 20 doses. 20 tablet 024 2024 Discontinued hydrocortisone (Anusol-HC) 2.5 % rectal creamIndication s:Other hemorrhoids Insert into the rectum 2 times daily. 28 g 024 2024 Discontinued(R eorder (will not trigger notification to Pharmacy)) guaiFENesin (Mucinex) 600 MG 12 hr tablet Take 2 tablets (1,200 mg) by mouth if needed in the morning and at bedtime for cough or congestion. Do not crush, chew, or split. 30 tablet 025 2024 Discontinued(M ed list cleanup (will not trigger notification to Pharmacy)) benzonatate (Tessalon Perles) 100 MG capsule Take 1 capsule (100 mg) by mouth if needed in the morning, at noon, and at bedtime for cough for up to 10 days. Do not crush or chew. 30 capsule 025 2024 ondansetron (Zofran) 4 MG tabletIndicatio ns:Influenza A Take 1 tablet (4 mg) by mouth every 8 (eight) hours if needed for nausea or vomiting for up to 5 days. 15 tablet 025 2024 Active Problems Problem Noted Date Diagnosed Date Pain of upper abdomen 05/24/2024 Assessment & Plan (05/24/2024 2:19 PM EST): It seems to be muscular, probably related to persistent cough last week. Results of recent abdominal ultrasound were discussed with patient, essentially within normal limits. Advised to return to clinic if she develops fever, unable to retain p.o. Use diclofenac gel to affected area Dry skin dermatitis 03/02/2024 Assessment & Plan [...] 06/03/2023 Dyspnea on exertion 05/23/2023 Fractured dental adventism with loss of materi al 04/02/2023 Encounter for preventive health examination 02/22 Assessment & Plan (03/13/2023 4:30 PM EST): See hpi Decreased sensation of foot 03/13/2023 External hemorrhoid 02/09/2023 Assessment & Plan (05/24/2024 2:16 PM EST): Advised to avoid constipation, use raisins, prune juice, flaxseed powder. Use hydrocortisone rectal cream with applicator twice daily after each BM and as needed for rectal pain Assessment & Plan (02/09/2023 9:22 AM EST): [...] Encounters Date Type Department Care Team Description 05/25/2024 Refill [facility] [address] [place] [address] Diamond Ponce MD Age-related osteoporosis without current pathological fracture 05/25/2024 Telephone [facility] [address] [place] [address] Lizbet Vickers, PharmD 05/24/2024 2:00 PM EST Office Visit [facility] [address] [place], [place] [phone] Daija Garrison MD Pain of upper abdomen (Primary Dx); External hemorrhoid; Other hemorrhoids; Costochondritis 05/06/2024 1:40 PM EST Office Visit [facility] [address] [place] [phone] Doris Dugan DO Influenza A (Primary Dx); Viral upper respiratory tract infection; Acute maxillary sinusitis, recurrence not specified 05/06/[address] [phone] Diamond Ponce MD 05/06/2024 Telephone [facility] [address] [place] [phone] Doris Dugan DO 04/22/2024 2:15 PM EST Office Visit [address] [address] Clara Hightower ANP Essential hypertension (Primary Dx); Pain of upper abdomen; Chronic left shoulder pain; Generalized abdominal pain 04/22/2024 Travel 04/20/[address] [address] Diamond Ponce MD Call Back Request 04/19/2024 3:20 PM EST Office Visit [facility] [address] [address] Elvis Matta MD Chest pain, unspecified type (Primary Dx) 03/25/[address] [address] Diamond Ponce MD Essential hypertension 03/18/2024 1:30 PM EST Office Visit [facility] [address] [place] [phone] Aron No DDS Ill-fitting dentures (Primary Dx) 03/02/2024 1:45 PM EST Office Visit [address] [address] Diamond Ponce MD Dry skin dermatitis (Primary Dx); Type 2 diabetes mellitus without complication, without long-term current use of insulin ([facility]); Dermatitis; Vaginal itching; Other hemorrhoids 03/02/2024 Travel 03/01/[address] [phone] Cliff Murdock [place] Chart Prep from Last 3 Months Immunizations Name Administration Dates Next Due Influenza High-dose Quadriva lent Preservative Free 01/03/2022,04/13/2020 Influenza Injectable Quadriv alant Preservative Free IIV4 MDCK 02/23/2021 Influenza injectable quadriv alent preservative free 03/13/2023,12/18/2016 Influenza, High Dose Seasona l, Preservative Free 04/19/2019,02/07/2014 Influenza, Split (incl. ulises fied surface antigen) 02/27/2012 Pfizer Covid-19 Vaccine 12+ 05/25/2024(D eferred: Patient decision - Patient reports that they could not get out of bed after recieving the last COVID vaccine and would not like to recieve another dose) Pneumococcal Conjugate PCV 20 08/13/2022 Pneumococcal Polysaccharide [...] Sign Reading Time Taken Comments Blood Pressure 134/72 05/25/2024 2:11 PM EST Pulse 82 05/25/2024 2:11 PM EST Temperature 36.7 ??C (98.1 ??F) 05/24/2024 1:59 PM ES T Respiratory Rate 16 05/24/2024 1:59 PM EST Oxygen Saturation 99% 05/24/2024 1:59 PM EST Inhaled Oxygen Concentration - - Weight 68 kg (150 lb) 05/24/2024 1:59 PM EST Height 149.9 cm (4' 11 ) 03/02/2024 1:12 PM EST Body Mass Index 30.3 03/02/2024 1:12 PM EST Plan of Treatment Upcoming Encounters Date Type Department Care Team (Late st Contact Info) Description 06/15/2024 1:45 PM EDT Office Visit [facility] [address] [place] [phone] Diamond Ponce MD [address] [place] [phone] 06/29/2024 2:00 PM EDT Telemedicine [facility] [address] [place] [address] [phone] Health Maintenance Due Date Last Done Comments CT Colonography 1955 FIT DNA/Cologuard 1955 FIT 1955 FOBT 1955 Sigmoidoscopy 1955 Colonoscopy 06/17/2023 06/16/2013 Colorectal Cancer Screening 06/17/2023 Dental Oral Exam 07/05/2023 01/02/2023, 11/28/2020 Dental Prophylaxis 07/05/2023 01/02/2023, 12/12/2020 Dental X-Ray: Full Mouth 11/30/2023 11/28/2020 Dental [...] 10/02/2025 10/03/2023, 09/21, 10/03/2023, Additional history exists COVID-19 Vaccine Discontinued 03/13/2021, , 07/14/2020 Pneumococcal Vaccine: 50+ Years Completed 08/13/2022, 04/19/2019, [...] Procedure Name Priority Date/Time Associated Diagnosis Comments HEPATIC FUNCTION PANEL Routine 1:51 PM EST Pain of upper abdomen LIPASE Routine 05/25/2024 1:51 PM EST Pain of upper abdomen AMYLASE Routine 05/25/2024 1:51 PM EST Pain of upper abdomen US ABDOMEN COMPLETE Urgent 05/07/2024 4 :28 PM EST Pain of upper abdomen Generalized abdominal pain XR CHEST 2 VIEWS STAT 05/06/2024 2:09 [...] complication, without long-term current use of insulin ([facility]) CBC WITH AUTO DIFFERENTIAL Routine 03/03/2024 7:57 AM EST Type 2 diabetes mellitus without complication, without long-term current use of insulin ([facility]) POCT GLUCOSE Routine 03/02/2024 1:13 PM EST Type 2 diabetes mellitus without complication, without long-term current use of insulin ([facility]) BI MAMMOGRAM SCREENING TOMOSYNTHESIS BILATERAL Routine 07/14/2023 [...] Recently Relevant to Health Maintenance Results * Lipase (05/25/2024 1:51 PM EST) Lipase 49 8 - 78 U/L [facility] Blood Venous blood specimen / Unknown 05/25/2024 1:51 PM EST 05/25/2024 4:03 PM EST [facility] LAB BLOOD ORDERABLES Final Resul t [facility] [address] [place] [phone] * Amylase (05/25/2024 1:51 PM EST) Amylase 77 28 - 100 U/L [facility] Blood Venous blood specimen / Unknown 05/25/2024 1:51 PM EST 05/25/2024 4:03 PM EST us Clara Hightower ANP LAB BLOOD ORDERABLES Final Resul t Performing Organization Address [facility] de Phone Number [facility] [address] [place] [address] [phone] * Hepatic Function Panel (05/25/2024 1:51 PM EST) Bilirubin, Total 0.3 0.0 - 1.0 mg/dL [facility] Bilirubin, Direct 0.1 0.0 - 0.5 mg/dL [facility] Aspartate Amino Transferase 24 5 - 31 U/L [facility] Alanine Aminotransferase 14 0 - 31 U/L [facility] Total Protein 7.5 6.5 - 8.0 g/dL [facility] Albumin Level 4.0 3.5 - 5.0 g/dL [facility] Alkaline Phosphatase 68 39 - 117 U/L [facility] Blood Venous blood specimen / Unknown 05/25/2024 1:51 PM EST 05/25/2024 4:03 PM EST Clara Hightwoer ANP LAB BLOOD ORDERABLES Final Resul t Performing Organization Address [facility] de Phone Number [facility] [address] [place] [phone] * US Abdomen Complete (05/07/2024 4:28 PM EST) Anatomical Region Laterality Modality Abdomen Ultrasound 05/07/2024 4:28 PM EST Narrative 05/07/2024 4:29 PM EST ? [facility] ?[address] ?[place] [address] ? Ultrasound Report ? Signed ? Patient: Nikolai De Nikhil,Eveline ? MR#: [id number] ? : 1955 ?Acct:[id number] ? Age/Sex: 69 / F ?ADM Date: 02/14/25 ? Loc: HO.US ? 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 Ordering Physician: CLARA HIGHTOWER NP ?? Date of Service: 05/07/24 ?? Procedure(s): US abdomen complete ?? Accession Number(s): [id number] ? cc: Diamond Ponce MD; CLARA HIGHTOWER NP ? CLINICAL HISTORY: generalized abdominal pain ? US ABDOMEN COMPLETE ? Comparison: None ? Findings: ?? The visualized pancreas is unremarkable. ?? The visualized aorta and inferior vena cava are normal caliber. ?? Atherosclerotic changes in the distal abdominal aorta. ? The liver is normal in size and echotexture. ?? There is no intrahepatic bile duct dilatation. ?? Common bile duct measures 3.4 mm. ?? The gallbladder is normal. There is no sonographic Pope sign. ?? The main portal vein is antegrade. ? The right kidney is 10.2 cm in length. ?? Limited visualization of the lower pole of the right kidney. There is a 7 ?? mm midpole cyst. ?? The left kidney is 9.6 cm in length. ?? The spleen is normal. ?? No ascites. ? IMPRESSION: ?? 1. No cholelithiasis or acute cholecystitis. ?? 2. No biliary ductal dilatation. ?? 3. No hydronephrosis or large shadowing intrarenal calculus. ? This document has been electronically signed by: Katalina Coto DO on ?? 05/07/2024 16:28:31 ? Dictated By: ?Katalina Coto MD ? Signed By: ?<Electronically signed by Katalina oCto MD in OV> ?05/07/248 ? DD/ ? TD/TT: 05/07/248 ? Asset Analyst: ? Procedure Note Guille, Image - 05/07/2024 [place] [id number] Ultrasound Report Signed Patient: Eveline Novoa MR#: [id number] : 4Acct:[id number] Age/Sex: 69 / FADM Date: 05/07/24 Loc: HO.US Attending Dr: Clara Hightower NP Ordering Physician: CLARA HIGHTOWER NP Date of Service: 05/07/24 Procedure(s): US abdomen complete Accession Number(s): [id number] cc: Diamond Ponce MD; CLARA HIGHTOWER NP CLINICAL HISTORY: generalized abdominal pain US ABDOMEN COMPLETE Comparison: None Findings: The visualized pancreas is unremarkable. The visualized aorta and inferior vena cava are normal caliber. Atherosclerotic changes in the distal abdominal aorta. The liver is normal in size and echotexture. There is no intrahepatic bile duct dilatation. Common bile duct measures 3.4 mm. The gallbladder is normal. There is no sonographic Pope sign. The main portal vein is antegrade. The right kidney is 10.2 cm in length. Limited visualization of the lower pole of the right kidney. There is a 7 mm midpole cyst. The left kidney is 9.6 cm in length. The spleen is normal. No ascites. IMPRESSION: 1. No cholelithiasis or acute cholecystitis. 2. No biliary ductal dilatation. 3. No hydronephrosis or large shadowing intrarenal calculus. This document has been electronically signed by: Katalina Coto DO on 05/07/2024 16:28:31 Dictated By: Katalina Coto MD Signed By: <Electronically signed by Katalina Coto MD in OV> 05/07/24 1628 DD/ 1628 TD/TT: 05/07/24 1628 Asset Analyst: us Clara RHODES IMG US PROCEDURES Edited Result - Final * XR Chest 2 Views (05/06/2024 2:09 PM EST) Anatomical Region Laterality Modality Chest Radiographic Nicky ging 05/06/2024 2:09 PM EST Narrative 05/06/2024 2:52 PM EST ?[facility] ?[address] ?[place] [address] ?XRay Report ? Signed ? Patient: Nikolai De Nikhil,Eveline ? MR#: [id number] ? : 1955 ?Acct:[id number] ? Age/Sex: 69 / F ?ADM Date: 02/13/25 ? Loc: HO.HHCX ? Attending Dr: Doris Dugan DO ? Ordering Physician: Doris Dugan DO ?? Date of Service: 05/06/24 ?? Procedure(s): XR chest 2V ?? Accession Number(s): [id number] ? cc: Doris Dugan DO ? EXAMINATION: [...] DD/ 1409 ? TD/TT: 05/06/24 1420 ? Asset Analyst: ? Procedure Note Guille, Cara - 05/06/[address] [address] XRay Report Signed Patient: Eveline Novoa MR#: [id number] : 4Acct:[id number] Age/Sex: 69 / FADM Date: 05/06/24 Loc: HO.HHCX Attending Dr: Doris Dugan DO Ordering Physician: Doris Dugan DO Date of Service: 05/06/24 Procedure(s): XR chest 2V Accession Number(s): [id number] cc: Doris Dugan DO EXAMINATION: XR CHEST [...] Charles Hilliard MD 05/06/2024 02:49 PM EST RP Dictated By: Charles Hilliard MD Signed By: <Electronically signed by Charles Hilliard MD in OV> 05/06/24 1449 DD/ 1409 TD/TT: 05/06/24 1420 Asset Analyst: Doris Dugan DO IMG XR PROCEDURES Final Resu lt * Influenza B (ID NOW Rapid Molecular) (05/06/2024 1:46 PM EST) [facility] Influenza B Negative Negative, Indeterminate [facility] Swab 05/06/2024 1:46 PM EST us Doris Dugan DO POINT OF CARE TEST ENTER/TAI T ORDERABLES Final Result Performing Organization Address [facility] Co de Phone Number [facility] [address] [place] [phone] * (ABNORMAL) Influenza A (ID NOW Rapid Molecular) (05/06/2024 1:46 PM EST) [facility] Influenza A Positive( A) Negative, Indeterminate [facility] Swab 05/06/2024 1:46 PM EST Doris Dugan DO POINT OF CARE TEST ENTER/TAI T ORDERABLES Final Result Performing Organization Address [facility] Co de Phone Number [facility] [address] [place] [phone] * POCT Rapid COVID Ag (05/06/2024 1:46 PM EST) Pathologist [facility] Rapid COVID Ag Negative [facility] Swab 05/06/2024 1:46 PM EST Doris Dugan DO POINT OF CARE TEST ENTER/TAI T ORDERABLES Final Result Performing Organization Address [facility]/ZIP Co de Phone Number [facility] [address] [place] [phone] * POCT rapid strep A manually resulted (05/06/2024 1:46 PM EST) [facility] Rapid Strep A Screen Negative Negative, None Detected [facility] Swab 05/06/2024 1:46 PM EST us Doris Dugan DO POINT OF CARE TEST ENTER/TAI T ORDERABLES Final Result Performing Organization Address [facility] Co de Phone Number [facility] [address] [place] [address] [phone] * ECG 12 lead (04/19/2024 2:39 PM EST) Narrative Name, MD Elvis - 04/19/2024 2:39 PM EST Normal sinus rhythm. ??Heart rate of 73. ??No ST segment elevation or depression. ??Q waves in lead III and no change from her baseline us Elvis Name ECG ORDERABLES Final Result * Vitamin D, 25-Hydroxy, Total, Immunoassay (03/03/2024 7:57 AM EST) [facility] Vitamin D 25-OH Total 42.0 >30 ng/mL [facility] Comment:Health Based Referen ce Values*< 20 ng/mL [id number] ng/mL Insufficient> 30 ng/mL Sufficient*Jenny RAZO. N [...] BLOOD ORDERABLES Final Result Performing Organization Address [facility] Co de Phone Number [facility] [address] [place] [phone] * TSH with Reflex to Free T4 (03/03/2024 7:57 AM EST) TSH reflex Free T4 1.72 0.32 - 4.0 uIU/mL [facility] Blood Venous blood specimen / Unknown 03/03/2024 7:57 AM EST 03/03/2024 11:18 AM EST us Diamond Lepe MD LAB BLOOD ORDERABLES Final Result Performing Organization Address [facility] Phone Number [facility] [address] [place] [phone] * Albumin, Random Urine W/Creatinine (03/03/2024 7:57 AM EST) Pathologist [facility] Creatinine, Urine 57.95 mg/dL [facility] Microalbumin Urine <5.0 mg/L [facility] [facility] Microalbum Creatinine Ratio Ur TNP <30 ug/mg cr [facility] Comment:Unable to calculate albumin/creatinine ratio due to lowmicroalbumin or creatinine result. Urine (Urine, Random) 03/03/2024 7:57 AM EST 03/03/2024 11:16 AM EST us Diamond Lepe MD LAB URINE ORDERABLES Final Result Performing Organization Address [facility] Co de Phone Number [facility] [address] [place] [phone] * (ABNORMAL) CBC auto differential (03/03/2024 7:57 AM EST) Pathologist [facility] White Blood Count 4.8 4.8 - 10.8 X10*3/uL [facility] Red Blood Count 4.28 4.20 - 5.50 X10*6/uL [facility] Hemoglobin 13.7 12.0 - 16.0 g/dl [facility] Hematocrit 41.6 37.0 - 47.0 % [facility] Mean Corpuscular Volume 97.2 80.0 - 98.0 fL [facility] Mean Corpuscular Hemoglobin 32.0 27.0 - 33.0 pg [facility] Mean Corpuscular HGB Conc 32.9 31.0 - 35.0 g/dl [facility] Red Cell Distribution Width 11.5 11.0 - 16.0 % [facility] Platelet Count 277 160 - 400 X10*3/uL [facility] Mean Platelet Volume 10.1 9.4 - 12.3 fL [facility] Neutrophils Percent Auto 57.9 45 - 73 % [facility] Imm Gran Pct Auto 0.4 0.0 - 0.4 % [facility] Lymphocytes Percent Auto 26.3 20 - 40 % [facility] Monocytes Percent Auto 10.6 2 - 11 % [facility] Eosinophils Percent Auto 4.2(H) 0 - 4 % [facility] Basophils Percent Auto 0.6 0 - 2 % [facility] NRBC Pct Auto 0.0 0.0 - 0.2 /100WBC [facility] Neutrophils Absolute Auto 2.8 2.0 - 8.3 x10*3/uL [facility] Imm Gran Abs Auto 0.02 0.00 - 0.03 X10*3/uL [facility] Lymphocytes Absolute Auto 1.3 1.2 - 4.9 X10*3/uL [facility] Monocytes Absolute Auto 0.5 0.1 - 1.2 X10*3/uL [facility] Eosinophils Absolute Auto 0.2 0.0 - 0.4 X10*3/uL [facility] Basophils Absolute Auto 0.0 0.0 - 0.2 X10*3/uL [facility] NRBC Abs Auto 0.000 0.0 - 0.012 X10*3/uL [facility] Blood Venous blood specimen / Unknown 03/03/2024 7:57 AM EST 03/03/2024 11:17 AM EST us Diamond Lepe MD LAB BLOOD ORDERABLES Final Result Performing Organization Address [facility]/ZIP Co de Phone Number [facility] [address] [place] [address] [phone] * Hepatitis C Antibody with Reflex to HCV, RNA, Quantitative, Real-Time PCR (03/03/2024 7:57 AM EST) Hepatitis C Antibody Nonreactive Nonreactive [facility] Comment:Antibodies to HCV no t detected; does not exclude early acuteHCV infection. Blood Venous blood specimen / Unknown 03/03/2024 7:57 AM EST 03/03/2024 11:18 AM EST us Diamond Lepe MD LAB BLOOD ORDERABLES Final Result Performing Organization Address [facility] Co de Phone Number [facility] [address] [place] [address] [phone] * HIV-1/2 Antigen and Antibodies, Fourth Generation, with Reflexes (03/03/2024 7:57 AM EST) HIV AB/AG Nonreactive Nonreactive [facility] Comment:HIV-1 p24 Ag and/or HIV-1/HIV-2 Ab not detected.A test result that is nonreactive does not exclude thepossibility of exposure to or infection with HIV-1 and/orHIV-2. Nonreactive results in this assay for individualswith prior exposure to HIV-1 and/or HIV-2 may be due toantigen and antibody levels that are below the limit ofdetection of this assay.The Hernandez Alinity HIV Ag/Ab Combo assay result andsupplemental assay results should be interpreted inconjunction with the patient's clinical presentation,history and other laboratory results. If the results areinconsistent with clinical evidence, additional testing issuggested to confirm the result. Blood Venous blood specimen / Unknown 03/03/2024 7:57 AM EST 03/03/2024 11:18 AM EST us Diamond Lepe MD LAB BLOOD ORDERABLES Final Result Performing Organization Address [facility]/ZIP Co de Phone Number [facility] [address] [place] [address] [phone] * (ABNORMAL) Hemoglobin A1c (03/03/2024 7:57 AM EST) Hemoglobin A1c 6.4(H) <6.0 % [facility] Comment:Hemoglobin A1C Refer ence Range Adults: 4.8 - 6.0 % Non diabetic: < 6.0 % Goal: < 7.0 %Additional Action Suggested: > 8.0 %Note: Hemoglobin A1c results are invalid for patients with abnormal amounts of HbF. Blood transfusions may impact the HbA1c concentration in the patient sample. Estimated Average Glucose 137 mg/dL [facility] Comment:eAG = Estimated ave rage glucose which is %A1C expressed asaverage glucose, using the formula of the E8O-PiosiinHfutkcf Glucose study (ADAG), Diabetes Care, Vol.31,#8,Oct. 2007 Blood Venous blood specimen / Unknown 03/03/2024 7:57 AM EST 03/03/2024 11:17 AM EST us Diamond Lepe MD LAB BLOOD ORDERABLES Final Result Performing Organization Address [facility]/ZIP Co de Phone Number [facility] [address] [place] [address] [phone] * (ABNORMAL) Lipid Panel, Standard (03/03/2024 7:57 AM EST) Triglycerides 73 <150 mg/dL [facility] Comment:Desirable Triglyceri de: less than 150 mg/dLBorderline High Triglyceride 150-199 mg/dLHigh Triglyceride: 200-499 mg/dLVery High Triglyceride: greater than or equal to 5OO mg/dL Cholesterol 242(H) <200 mg/dL [facility] Comment:Desirable Cholestero l: less than 200 mg/dLBorderline High Cholesterol: 200-239 mg/dLHigh Cholesterol: greater than 239 mg/dL LDL Cholesterol Calculated 167(H) <100 mg/dL [facility] Comment:Desirable LDL: less than 100 mg/dLNear Optimal/Above Optimal LDL: 110- 129 mg/dLBorderline High LDL: 130-159 mg/dLHigh LDL: 160-189 mg/dLVery High LDL: greater than or equal to 190 mg/dL HDL Cholesterol 61 >40 mg/dL [facility] Comment:Desirable HDL: great er than 40 mg/dL Note: This HDL assay may give artificially low results in patients with liver disease. Blood Venous blood specimen / Unknown 03/03/2024 7:57 AM EST 03/03/2024 11:18 AM EST Diamond Lepe MD LAB BLOOD ORDERABLES Final Result [facility] [address] [place] [phone] * (ABNORMAL) Comprehensive Metabolic Panel (03/03/2024 7:57 AM EST) Sodium 142 135 - 145 mmol/L [facility] Potassium 3.9 3.3 - 5.1 mmol/L [facility] Chloride 107 96 - 108 mmol/L [facility] Carbon Dioxide 30(H) 22 - 29 mmol/L [facility] Anion Gap 9(L) 12 - 20 [facility] Urea Nitrogen (BUN) 15 9 - 16 mg/dL [facility] Creatinine, Serum 0.82 0.5 - 1.4 mg/dL [facility] Estimated Glomerular Filt Rate >60 [facility] Comment:Chronic Kidney Disea se: Estimated GFR < 60 mL/min/[id number] Kidney Disease: Estimated GFR < 15 mL/min/1.73m2 Glucose 101 60 - 115 mg/dL [facility] Calcium 9.6 8.4 - 10.2 mg/dL [facility] Bilirubin, Total 0.4 0.0 - 1.0 mg/dL [facility] Aspartate Amino Transferase 25 5 - 31 U/L [facility] Alanine Aminotransferase 15 0 - 31 U/L [facility] Total Protein 6.9 6.5 - 8.0 g/dL [facility] Albumin Level 3.9 3.5 - 5.0 g/dL [facility] Alkaline Phosphatase 62 39 - 117 U/L [facility] Blood Venous blood specimen / Unknown 03/03/2024 7:57 AM EST 03/03/2024 11:18 AM EST Diamond Lepe MD LAB BLOOD ORDERABLES Final Result Performing Organization Address City/State/[facility] Co de Phone Number [facility] [address] [place], [place] [phone] * POCT Glucose (03/02/2024 1:13 PM EST) Glucose Blood, POC 158 60 - 200 mg/dL QC Media Lot # [id number] Lot# Expiration Date ,025 Blood Capillary blood specimen / Unknown 03/02/2024 1:13 PM EST Diamond Lepe MD POINT OF CARE TEST EN TER/EDIT ORDERABLES Final Result * BI Mammogram Screening Tomosynthesis Bilateral (07/14/2023 1:53 PM EDT) Anatomical Region Laterality Modality Breast Bilateral Mammography 07/14/2023 1:53 PM EDT Narrative 08/11/2023 5:10 AM EDT ? [facility] ? [address] ?[place] [address] ? Mammography Report ? Signed ? Patient: Nikolai De Nikhil,Eveline ? MR#: [id number] ? : 1955 ?Acct:[id number] ? Age/Sex: 68 / F ?ADM Date: 04/22/24 ? Loc: HO.MAMMO ? Attending Dr: Diamond Lepe MD ? Ordering Physician: Diamond Ponce MD ?Results: ?? 1Negative ? Date of Service: 07/14/23 ?Follow Up: 1 Year From Orig ?? inal Mammogram ? Procedure(s): MM tomosynthesis screening BI ?? Accession Number(s): [id number] ? cc: Diamond Ponce MD ? EXAMINATION: [...] by Frannie Davis MD in OV> ? 05// 0507 ? DD/ 1353 ? TD/TT: ? Asset Analyst: ? Procedure Note Donotmaria elenainterpreter, Image - 08/11/2023 [facility] [address] [place] [address] Mammography Report Signed Patient: Eveline Novoa MR#: [id number] : 4Acct:[id number] Age/Sex: 68 / FADM Date: 07/14/23 Loc: HO.MAMMO Attending Dr: Diamond Lepe MD Ordering Physician: Diamond Ponce MDResults: 1Negative Date of Service: 07/14/23Follow Up: 1 Year From Orig inal Mammogram Procedure(s): MM tomosynthesis screening BI Accession Number(s): [id number] cc: Diamond Ponce MD EXAMINATION: MM SCREENING [...] in OV> 08/11/23 0507 DD/ 1353 TD/TT: Asset Analyst: us Diamond Lepe MD IMG BI PROCEDURES Tai ta Result - Final * Hm Colonoscopy (06/16/2013) us Historical Provider HEALTH MAINTENANCE Final Result from Last 3 Months or Most Recently Relevant to Health Maintenance Insurance [facility] Care Teams Bumper And Painter Relationship Specialty Start Date End Date Diamond Ponce MD [address] [place] [address] PCP - General Family Medicine 07/01/19
--- OUTSIDE RECORDS SUMMARY | 2024-05-25 17:27 | XMS_ITS | Encounter Summary ---
Author Organization [employer] Address [address] [facility] 7t [place] [address] Care Team Providers Care Leak Gang Supervisor Name Role Phone Diamond Ponce MD Primary Care Provide r Encounter Details Date Type Department Care Team (Late st Contact Info) Description 05/06/2024 1:40 PM EST Office Visit [facility] [address] [place] [address] Doris Dugan DO [address] [place] [address] Influenza A (Primary Dx); Viral upper respiratory [...] the past 12 months, has t he [employer], gas, oil or water company threatened to [...] for sick visit . She comes to [place]o [place] [facility] [place]. She says that [...] no sick contacts. History provided by: Patient clinical data specialist used: Yes Flu Symptoms Presenting symptoms: cough, [...] examination Decreased sensation of foot Fractured dental amish with loss of material Dyspnea on exertion [...] spit tid prn pain for 1 week- togolese, Disp: 150 mL, Rfl: 0 Linzess 290 MCG capsule, TAKE 1 CAPSULE BY MOUTH EVERY MORNING WITH A FULL GLASS OF WATER, Disp: , Rfl: Melatonin 3 MG capsule, take one at bed time, Disp: , Rfl: Zguxzkrh-Swotqttpzw-Oxsrlschz (Triple Antibiotic) 3.5-400-5000 ointment, APPLY TOPICALLY TO [...] Description 06/15/2024 1:45 PM EDT Office Visit [facility] [address] [place] [phone] Diamond Ponce MD [address] [place] [address] 06/29/2024 2:00 PM EDT Telemedicine [address] [address] documented as of this encounter Procedures Procedure [...] PM EST Narrative 05/06/2024 2:52 PM EST ?[facility] ?[address] ?[place] [address] ?XRay Report ? Signed ? Patient: Eveline Novoa ? MR#: [id number] ? : 1955 ?Acct:[id number] ? Age/Sex: 69 / F ?ADM Date: 05/06/24 ? Loc: HO.HHCX ? Attending Dr: Doris Dugan DO ? Ordering Physician: Doris Dugan DO ?? Date of Service: 05/06/24 ?? Procedure(s): XR chest 2V ?? Accession Number(s): [id number] ? cc: Doris Dugan DO ? EXAMINATION: [...] DD/ 1409 ? TD/TT: 05/06/24 1420 ? Bondactor Machine Operator: ? Procedure Note Donotuseinterpreter, Image - 05/06/2024 [facility] [address] [place] [address] XRay Report Signed Patient: Eveline Novoa MR#: [id number] : 4Acct:[id number] Age/Sex: 69 / FADM Date: 05/06/24 Loc: HO.HHCX Attending Dr: Doris Dugan DO Ordering Physician: Doris Dugan DO Date of Service: 05/06/24 Procedure(s): XR chest 2V Accession Number(s): [id number] cc: Doris Dugan DO EXAMINATION: XR CHEST [...] 05/06/24 1449 DD/ 1409 TD/TT: 05/06/24 1420 Bondactor Machine Operator: Doris Dugan DO IMG XR PROCEDURES Final Resu lt * Influenza B (ID NOW Rapid Molecular) (05/06/2024 1:46 PM EST) Influenza B Negative Negative, Indeterminate [facility] Swab 05/06/2024 1:46 PM EST Doris Dugan DO POINT OF CARE TEST ENTER/TAI T ORDERABLES Final Result Performing Organization Address [facility]/ZIP Co de Phone Number [facility] [address] [place] [phone] * (ABNORMAL) Influenza A (ID NOW Rapid Molecular) (05/06/2024 1:46 PM EST) Influenza A Positive( A) Negative, Indeterminate [facility] Swab 05/06/2024 1:46 PM EST Doris Dugan DO POINT OF CARE TEST ENTER/TAI T ORDERABLES Final Result Performing Organization Address [facility] Co de Phone Number [facility] [address] [place] [phone] * POCT rapid strep A manually resulted (05/06/2024 1:46 PM EST) Pathologist [facility] Rapid Strep A Screen Negative Negative, None Detected [facility] Swab 05/06/2024 1:46 PM EST Doris Dugan DO POINT OF CARE TEST ENTER/TAI T ORDERABLES Final Result Performing Organization Address [facility] Co de Phone Number [facility] [address] [place] [phone] * POCT Rapid COVID Ag (05/06/2024 1:46 PM EST) Rapid COVID Ag Negative [facility] Swab 05/06/2024 1:46 PM EST Doris Dugan DO POINT OF CARE TEST ENTER/TAI T ORDERABLES Final Result Performing Organization Address [facility]/ZIP Co de Phone Number [facility] [address] [place] [phone] documented in this encounter Visit Diagnoses Diagnosis Influenza A- Primary Influenza with other respiratory manifestations Viral upper respiratory tract infection Acute upper respiratory infections of unspecified site Acute maxillary sinusitis, recurrence not specified documented in this encounter Additional Health Concerns Assessment Noted Time PHQ-9 Depression Total Score: 0 05/23/19 24 1:38 PM EST documented as of this encounter Care Teams Leak Gang Supervisor Relationship Specialty Start Date End Date Diamond Ponce MD [address] [place] [phone] PCP - General Family Medicine 07/01/19 documented as of this encounter
--- OUTSIDE RECORDS SUMMARY | 2024-05-25 17:28 | XMS_ITS | Encounter Summary ---
Author Organization [employer] Address [address] [facility] 7t [place] [address] Care Team Providers Care Computer Engineering Technologist Name Role Phone Diamond Ponce MD Primary Care Provide r Reason for Visit * Reason Onset Date Comments Med Refill 05/25/2024 Encounter Details Date Type Department Care Team (Late st Contact Info) Description 05/25/2024 Refill [facility] [address] [place], [place] [phone] Diamond Ponce MD [address] [place] [address] Age-related osteoporosis without current pathological fracture Social History Tobacco Use Types Packs/Day Years [...] Description 06/15/2024 1:45 PM EDT Office Visit [facility] [address] [place] [phone] Diamond Ponce MD [address] [place] [address] 06/29/2024 2:00 PM EDT Telemedicine [facility] [address] [place] [phone] documented as of this encounter Visit Diagnoses Diagnosis Age-related osteoporosis without current pathological fracture documented in this encounter Additional Health Concerns Assessment Noted Time PHQ-9 Depression Total Score: 0 05/23/19 24 1:38 PM EST documented as of this encounter Care Teams Computer Engineering Technologist Relationship Specialty Start Date End Date Diamodn Ponce MD [address] [place] [phone] PCP - General Family Medicine 07/01/19 documented as of this encounter
--- OUTSIDE RECORDS SUMMARY | 2024-05-25 17:28 | XMS_ITS | Encounter Summary ---
Author Organization [employer] [facility] Address [address] [facility] 7t [place] [address] Care Team Providers Care Order Processor Name Role Phone Diamond Ponce MD Primary Care Provide r Encounter Details Date Type Department Care Team (Late Contact Info) Description 12/11/2022 Orders Only [facility] [address] [place] [address] [phone] ProviderYa MD Social History Tobacco Use Types Packs/Day Years [...] Description 06/15/2024 1:45 PM EDT Office Visit [facility] [address] [place] [address] [phone] Diamond Ponce MD [address] [place] [address] [phone] 06/29/2024 2:00 PM EDT Telemedicine [address] [phone] documented as of this encounter Procedures Procedure Name Priority Date/Time Associated Diagnosis Comments COLONOSCOPY Routine 06/16/2013 documented in this encounter Results * Hm Colonoscopy (06/16/2013) us Historical Provider HEALTH MAINTENANCE Final Result documented in this encounter Visit Diagnoses Not on filedocumented in this encounter Additional Health Concerns Assessment Noted Time PHQ-9 Depression Total Score: 0 04/24/19 23 2:26 PM EST documented as of this encounter Care Teams Order Processor Relationship Specialty Start Date End Date Diamond Ponce MD [address] [place] [phone] PCP - General Family Medicine 07/01/19 documented as of this encounter
--- OUTSIDE RECORDS SUMMARY | 2024-05-25 17:28 | XMS_ITS | Encounter Summary ---
Author Organization [employer] Address [address] [facility] 7t [place] [address] Care Team Providers Care Home Inspector Name Role Phone Diamond Ponce MD Primary Care Provide r Reason for Visit * Reason Onset Date Comments Prior Authorization 03/04/2023 Encounter Details Date Type Department Care Team ([facility] st Contact Info) Description 03/04/2023 Telephone [facility] [address] [place] [address] Aron No DDS [address] [place] [address] Prior Authorization Social History Tobacco Use Types [...] EDT Office Visit [facility] [address] [place] [phone] Diamond Ponce MD [address] [place] [phone] 06/29/2024 2:00 PM EDT Telemedicine [facility] [address] [place] [phone] documented as of this encounter Visit Diagnoses Not on filedocumented in this encounter Additional Health Concerns Assessment Noted Time PHQ-9 Depression Total Score: 0 04/24/19 23 2:26 PM EST documented as of this encounter Care Teams Home Inspector Relationship Specialty Start Date End Date Diamond Ponce MD [address] [place] [phone] PCP - General Family Medicine 07/01/19 documented as of this encounter
--- OUTSIDE RECORDS SUMMARY | 2024-05-25 17:28 | XMS_ITS | Encounter Summary ---
Author Organization [employer] [facility] Address [address] [facility] 7t [place] [address] Care Team Providers Care Lens Blank Gauger Name Role Phone Diamond Ponce MD Primary Care Provide r Encounter Details Date Type Department Care Team (Latest Contact Info) Description 12/12/2020 Abstract [facility] CONVERSION[facility] Dental, Provider, DDS Social History [...] Upcoming Encounters Date Type Department Care Team ( st Contact Info) Description 06/15/2024 1:45 PM EDT Office Visit [facility] [address] [place] [phone] Diamond Ponce MD [address] [place] [phone] 06/29/2024 2:00 PM EDT Telemedicine [facility] [address] [place] [address] [phone] documented as of this encounter Visit Diagnoses Not on filedocumented in this encounter Care Teams Lens Blank Gauger Relationship Specialty Start Date End Date Diamond Ponce MD [address] [place] [address] [phone] PCP - General Family Medicine 07/01/19 documented as of this encounter
--- OUTSIDE RECORDS SUMMARY | 2024-05-25 17:28 | XMS_ITS | Encounter Summary ---
Author Organization [employer] Address [address] [facility] 7t [place] [address] Care Team Providers Care Sales Account Coordinator Name Role Phone Diamond Ponce MD Primary Care Provide r Encounter Details Date Type Department Care Team ([facility] st Contact Info) Description 05/06/2024 Telephone [facility] [address] [place] [address] Diamond Ponce MD [address] [place], [place] [phone] Social History Tobacco Use Types Packs/Day Years [...] PM EST TC placed to pt via [employer] hard metals hand engraver (Sherman ID#[id number]) to inform of below provider message. Pt [...] Description 06/15/2024 1:45 PM EDT Office Visit [facility] [address] [place] [phone] Diamond Ponce MD [address] [place] [address] 06/29/2024 2:00 PM EDT Telemedicine [facility] [address] [place] [phone] documented as of this encounter Visit Diagnoses Not on filedocumented in this encounter Additional Health Concerns Assessment Noted Time PHQ-9 Depression Total Score: 0 05/23/19 24 1:38 PM EST documented as of this encounter Care Teams Sales Account Coordinator Relationship Specialty Start Date End Date Diamond Ponce MD [address] [place] [address] PCP - General Family Medicine 07/01/19 documented as of this encounter
--- OUTSIDE RECORDS SUMMARY | 2024-05-25 17:28 | XMS_ITS | Encounter Summary ---
Author Organization [employer] Address [address] [facility] 7t [place] [address] Care Team Providers Care Freight Rate Clerk Name Role Phone Diamond Ponce MD Primary Care Provide r Encounter Details Date Type Department Care Team (Late st Contact Info) Description 05/06/2024 Telephone [facility] [address] [place], [place] [phone] Doris Dugan DO [address] [place] [address] Social History Tobacco Use Types Packs/Day Years [...] Description 06/15/2024 1:45 PM EDT Office Visit [address] [phone] Diamond Ponce MD [address] [place] [phone] 06/29/2024 2:00 PM EDT Telemedicine [address] [phone] documented as of this encounter Visit Diagnoses Not on filedocumented in this encounter Additional Health Concerns Assessment Noted Time PHQ-9 Depression Total Score: 0 05/23/19 24 1:38 PM EST documented as of this encounter Care Teams Freight Rate Clerk Relationship Specialty Start Date End Date Diamond Ponce MD [address] [place] [address] [phone] PCP - General Family Medicine 07/01/19 documented as of this encounter
--- OUTSIDE RECORDS SUMMARY | 2024-05-25 17:28 | XMS_ITS | Encounter Summary ---
Author Organization [employer] [facility] Address [address] [place] [address] Care Team Providers Care Commercial Ocean Clammer Name Role Phone Diamond Ponce MD Primary Care Provide r Encounter Details Date Type Department Care Team (Late st Contact Info) Description 03/29/2022 [facility] Health Information Management [address] [place] [address] Diamond Ponce MD [address] [place], [place] [phone] Social History Tobacco Use Types Packs/Day Years [...] Description 06/15/2024 1:45 PM EDT Office Visit [facility] [address] [place] [address] [phone] Diamond Ponce MD [address] [place] [address] [phone] 06/29/2024 2:00 PM EDT Telemedicine [facility] [address] [place] [address] [phone] documented as of this encounter Visit Diagnoses Not on filedocumented in this encounter Care Teams Commercial Ocean Clammer Relationship Specialty Start Date End Date Diamond Ponce MD [address] [place] [address] PCP - General Family Medicine 07/01/19 documented as of this encounter
== END 2024-05-25 13:51 | disposition home or self-care (01) ==
LOC: HO.HHCL 13:50
PROVIDERS: Visit Provider Nurse Practitioner Primary Care
DX: R10.10 Upper abdominal pain, unspecified (principal)
CPT/HCPCS: 36415; 80076; 82150; 83690

== ENCOUNTER 2024-06-21 07:51 | Emergency (ER) | payer OTHER, SELFPAY ==
--- NOTE | ~2024-06-21 | CT_ITS ---
EXAMINATION: CT CHEST WITH IV CONTRAST, CT ABDOMEN PELVIS WITH IV CONTRAST INDICATION: L rib pain post fall COMPARISON: Comparison is made with the prior CT of the abdomen and pelvis dated 09/11/2022.. TECHNIQUE: CT scan of the chest, abdomen and pelvis was performed following administration of 85 mL Omnipaque 350 using standard departmental protocol. Coronal and sagittal reformatted images were generated and reviewed. Oral contrast material was not administered at the request of the referring physician. This CT exam was performed with one or more of the following dose reduction techniques: automated exposure control, adjustment of the mA and/or kV according to patient size, use of iterative reconstruction technique. DLP: 918 mGy-cm CHEST: THYROID: The thyroid is unremarkable. LUNGS: There is mild dependent atelectasis bilaterally. There is a tiny nonspecific 2 mm nodule in the right upper lobe (series 6, image 31). The lungs are otherwise clear. MEDIASTINUM: There is no mediastinal lymphadenopathy. HECTOR: There is no hilar lymphadenopathy. CARDIOVASCULATURE: The heart is enlarged. There is no pericardial effusion. The thoracic aorta is normal in caliber. DEGREE OF CORONARY CALCIFICATION: not evaluable, due to dense contrast in the coronary arteries PLEURA: There is no pleural effusion. No pneumothorax. MAIN AIRWAYS: The mainstem bronchi and proximal branches are patent. AXILLA: There is no axillary lymphadenopathy. SOFT TISSUES: Unremarkable. BONES: There is degenerative disc disease of the spine. ABDOMEN: LIVER: The liver is normal in size and contour. No liver mass is identified. The hepatic and portal veins are patent. GALLBLADDER / BILE DUCTS: The gallbladder is unremarkable. There is no intra or extrahepatic biliary ductal dilatation. SPLEEN: The spleen is normal in size. No focal splenic lesion is identified. PANCREAS: The pancreas is unremarkable in appearance. ADRENAL GLANDS: Within normal limits. KIDNEYS/RETROPERITONEUM: No renal calculi are identified. There is no hydronephrosis. No renal masses are identified. LYMPH NODES: No abdominal or pelvic lymphadenopathy. VASCULATURE: The abdominal aorta is normal in caliber. MESENTERY/PERITONEUM: No free fluid. No masses. There is no free intraperitoneal gas. STOMACH: There is a small hiatal hernia. The remainder of the stomach is collapsed. SMALL BOWEL: The small bowel is normal in caliber. COLON: There is a large amount of stool throughout the colon. APPENDIX: Normal. URINARY BLADDER/PELVIC ORGANS: The urinary bladder is moderately distended with an estimated volume of 600 mL. The patient is status post hysterectomy. BONES / SOFT TISSUES: There is nondisplaced fractures of the left transverse processes of L1, L2, and L3. CT/CT abdomen pelvis w IV con IMPRESSION: 1. Nondisplaced fractures of the left transverse processes of L1, L2, and L3. 2. No evidence of traumatic visceral injury to the chest, abdomen, or pelvis. 3. Small hiatal hernia. Large amount of stool throughout the colon. Electronically signed by: Marc Hart MD 06/21/2024 11:32 AM EDT
--- NOTE | ~2024-06-21 | CT_ITS ---
EXAMINATION: CT HEAD WITHOUT CONTRAST CLINICAL INFORMATION: s/p fall down stairs and head strike COMPARISON: September 11, 2022. TECHNIQUE: Contiguous axial imaging was performed from the skull base to vertex without intravenous administration of contrast. This CT examination was performed using dose optimization techniques as appropriate, variously including the following: *Automated exposure control *Adjustment of mA and/or kV according to patient size (this includes techniques or standardized protocols for targeted exams where dose is matched to indication/reason for exam; i.e. extremities or head) *Use of iterative reconstruction technique DLP: 713.66 mGy-cm FINDINGS: Bony calvarium is intact. Skull base is intact. No acute intracranial hemorrhage, mass effect, midline shift, hydrocephalus or herniation. Iyer-white matter differentiation is normal. Sellar/suprasellar region demonstrated no gross masses. Craniocervical junction demonstrates a 6 mm descensus of the cerebellar tonsils below foramen magnum. Bilateral multifocal patchy and confluent deep periventricular white matter hypodensities involving centrum semiovale and carrion radiata. Old lacunar infarcts, basal ganglia. No gross hematoma, intraconal or extraconal compartments of the orbits. CT/CT head/brain wo IV con IMPRESSION: No acute fracture, bony calvarium. No acute intracranial hemorrhage. White matter disease likely related to small vessel occlusive disease. Low-lying cerebellar tonsils. Electronically signed by: Lamonte Curtis MD 06/21/2024 11:28 AM EDT
--- NOTE | ~2024-06-21 | CT_ITS ---
EXAMINATION: CT CERVICAL SPINE WITHOUT CONTRAST CLINICAL INFORMATION: Fall, neck pain. COMPARISON: 10/02/2019. TECHNIQUE: Spiral CT imaging of the cervical spine performed in axial plane without contrast. Multiplanar reformatted images were constructed from the axial data set. This CT examination was performed using dose optimization techniques as appropriate, variously including the following: *Automated exposure control *Adjustment of mA and/or kV according to patient size (this includes techniques or standardized protocols for targeted exams where dose is matched to indication/reason for exam; i.e. extremities or head) *Use of iterative reconstruction technique FINDINGS: CORONAL ALIGNMENT: -Normal. SAGITTAL ALIGNMENT: -Minimal straightening of the normal lordosis, nonspecific. -No traumatic subluxation. -Trace degenerative retrolisthesis of C3 on C4. C1-C2 AND CRANIOCERVICAL JUNCTION: -Intact and normally aligned. VERTEBRAL BODIES AND FACETS: -No fracture, compression deformity, or suspicious bone lesion. -Normal facet alignment without subluxation. DISCS: -Moderate disc degeneration present C3-4, and C5-6. CENTRAL CANAL: -No evidence of high-grade central canal narrowing or large disc herniation allowing for modality limitations. PREVERTEBRAL AND PARAVERTEBRAL SOFT TISSUES: -Normal without fluid collection or soft tissue swelling. -Retropharyngeal course of the left ICA. -Normal thyroid. LUNG APICES: -Clear bilaterally. CT/CT cervical spine wo IV con IMPRESSION: 1. No CT evidence of acute cervical spine fracture or injury. 2. Degenerative disc changes, moderate at C3-4 and C5-6. Electronically signed by: Charles Hilliard MD 06/21/2024 11:28 AM EDT
[2024-06-21 08:01] VITALS: BP 147/101; PULSE 97; RESP 20; TEMP 36.6; O2SAT 98; BMI 29.9
--- NOTE | 2024-06-21 08:13 | ED_ITS ---
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 She reports a headstrike but no LOC. No numbness, no weakness. She denies any other injuries. She is very anxious and crying. No vomiting no confusion MD complaint: fall Onset (ago): hour(s) ([address]) Fall from: down stairs (#) (4) Fall witnessed: no Place fall occurred: home Loss of consciousness: none Prolonged down time: no Symptoms prior to fall: none Context: tripped/slipped Location of injury: head and abdomen Severity: severe Quality: aching Associated symptoms (after fall): unable to walk Related Data Home Medications ?Medication ?Instructions ?Recorded ?Confirmed atorvastatin 40 mg tablet 1 tab PO DAILY 10/26/21 10/26/21 baclofen 20 mg tablet 1 tab PO TID 10/26/21 10/26/21 ibuprofen 800 mg tablet 1 tab PO TID PRN Pain 10/26/21 10/26/21 melatonin 3 mg tablet 1 tab PO BEDTIME 10/26/21 10/26/21 alendronate 70 mg tablet 70 mg PO QWEEK 01/15/22 blood sugar diagnostic (FreeStyle #10 ea 01/15/22 Lite Strips) cetirizine 10 mg tablet 10 mg PO DAILY 01/15/22 diclofenac sodium 1 % topical gel 2 g topical QID muscle pain 01/15/22 lancets 33 gauge (TRUEplus Lancets) #100 ea 01/15/22 amlodipine 2.5 mg tablet 2.5 mg PO DAILY 07/10/22 Previous Rx's ?Medication ?Instructions ?Recorded polyethylene glycol 3350 17 17 g PO DAILY 30 days #510 grams 01/15/22 gram/dose oral powder (Miralax) diclofenac sodium 50 mg 50 mg PO BID #20 tabs 09/12/22 tablet,delayed release famotidine 40 mg tablet (Pepcid) 40 mg PO BEDTIME 90 days #90 tabs 03/13/24 linaclotide 290 mcg capsule 290 mcg PO QAM 30 days #30 caps 06/04/23 (Linzess) simethicone 180 mg capsule 180 mg PO BID 30 days #60 caps 06/04/23 bisacodyl 5 mg tablet,delayed 10 mg (2 x 5 mg) PO BEDTIME 2 days 01/02/24 release (Dulcolax (bisacodyl)) #4 tabs peg 3350-electrolytes 236 240 ml PO Q10M 1 day #4,000 mL 01/02/24 gram-22.74 gram-6.74 gram-5.86 gram solution (Golytely) docusate sodium 100 mg capsule 200 mg (2 x 100 mg) PO DAILY #14 06/21/24 (Colace) caps oxycodone 5 mg tablet 5 mg PO Q8H PRN pain (scale score 06/21/24 4-6) #9 tabs polyethylene glycol 3350 17 17 g PO DAILY #510 grams 06/21/24 gram/dose oral powder (Miralax) Allergies Allergy/AdvReac Type Severity Reaction Status Date / Time tramadol Allergy Severe Hallucinati Verified 06/21/24 08:03 ons morphine Allergy Intermediate Hallucinati Verified 06/21/24 08:03 ons Review of Systems 2 Review of Systems: Constitutional : No Weight loss, No Fever, No Chills ENT/Mouth : No sore throat, No Rhinorrhea Eyes: No Swelling, No Redness Cardiovascular : No Chest Pain, No SOB, NoEdema Respiratory : No Cough, No Sputum, No Wheezing Gastrointestinal : no Nausea, no Vomiting, no Diarrhea, positive flank Pain, No Hematochezia, No Melena Genitourinary : No Dysuria, No Urinary Frequency, No Hematuria, No Urgency Musculoskeletal : No joint pain, No Myalgias, No Joint Swelling Skin : No Skin Lesions, No rash Neuro : No Weakness, No Numbness, No Dizziness, No Headache Psych : No Anxiety/Panic, No Depression All other systems reviewed and are negative. [facility] Past Medical History Attestation statement: The following information was validated with the patient. Source: old records reviewed Medical History Diabetes type 2, controlled High cholesterol Surgical History H/O colonoscopy H/O: hysterectomy H/O section Social History Social History Alcohol intake: never Patient Tobacco Use Status: Never used Tobacco Smoked in Last 30 Days: No Use of substances other than those prescribed or required for medical reasons: No Advance Directives: Yes Advance Directives on File: Yes Advance Directives Date on File: 10/26/21 Current occupation: [employer] Physical Exam 2 Vital Signs: Vital Signs: Last Vital Signs Temp 97.9 F 06/21/24 08:01 Pulse 70 06/21/24 10:08 Resp 16 06/21/24 10:08 BP 167/75 H 06/21/24 10:08 Pulse Ox 100 06/21/24 10:08 O2 Del Method Room Air 06/21/24 10:08 BMI result Body Mass Index 29.9 Appearance: Alert. Oriented X3. No acute distress. Eyes: Pupils equal, round and reactive to light. ENT: Pharynx normal. Neck: Normal inspection. Neck supple. CVS: Normal heart rate and rhythm. Pulses normal. Chest: mild L lower rib pain but no deformity lung sounds present Respiratory: No respiratory distress. Breath sounds normal. Abdomen: Soft and nontender no LUQ Pain. L flank pain no contusion/hematoma/abrasion Skin: Skin warm and dry. Normal skin color. Normal skin turgor. Extremities: No lower extremity edema. No calf ttp Neuro: Oriented X 3. No motor deficit. No sensory deficit. CN2-12 intact Course Course Course Narrative: Catracho Salguero received patient in sign-out pending imaging and disposition. labs unremarkable. CT head/brain wo IV con IMPRESSION: No acute fracture, bony calvarium. No acute intracranial hemorrhage. White matter disease likely related to small vessel occlusive disease. Low-lying cerebellar tonsils. CT cervical spine wo IV con IMPRESSION: 1. No CT evidence of acute cervical spine fracture or injury. 2. Degenerative disc changes, moderate at C3-4 and C5-6. CT chest w IV con/ abd w/o con IMPRESSION: 1. Nondisplaced fractures of the left transverse processes of L1, L2, and L3. 2. No evidence of traumatic visceral injury to the chest, abdomen, or pelvis. 3. Small hiatal hernia. Large amount of stool throughout the colon. Patient reports improvement in pain with Tylenol although still somewhat present. 5 mg oxycodone ordered. She is neurovascularly intact. No deficits. she lives at home with her with help from family. she is ambulating with steady gait to the bathroom. After discussion with patient/ family, will discharge home with pain control/ outpatient follow up. no need for PT evaluation at this time. Patient has remained stable throughout ED visit today. Discussed worrisome signs and symptoms and when to return to the ED. All questions answered at this time. Patient is agreeable with disposition and stable for discharge. Medications Administered Discontinued Medications Generic Name Dose Route Start Last Admin Trade Name Freq PRN Reason Stop Dose Admin Acetaminophen 1,000 mg in 100 mls @ 400 mls/hr 06/21/24 08:47 06/21/24 09:35 Ofirmev IV 06/21/24 09:01 Infused ONCE ONE Infusion Iohexol 85 ml 06/21/24 10:39 06/21/24 10:39 Iohexol 350 Mg/Ml 100 Ml Infus..Btl IV 06/21/24 10:40 85 ml ONCE ONE Administration Lorazepam 0.5 mg 06/21/24 08:47 06/21/24 09:02 Lorazepam 2 Mg/Ml Vial IVPUSH 06/21/24 08:48 0.5 mg STAT STA Administration Oxycodone HCl 5 mg 06/21/24 13:35 06/21/24 13:52 Oxycodone Hcl Immed Release 5 Mg Tablet PO 06/21/24 13:36 5 mg ONCE ONE Administration Medical Decision Making Medical Decision Making [facility] Narrative: 69 yo female with PMH of migraines, DM, HLD, dementia, GERD, not on blood thinners here with c/o mechanical trip and fall now with L flank pain at this time labs, CT scans of head/cspine, L ribs and L flank ordered. I have ordered IV tylenol and IV zofran for symptoms. Patient denies any ext injury. She is at baseline no neuro deficits and abdomen itself has no LUQ or RUQ pain. Differential Diagnosis Differential Diagnoses: The differential diagnosis associated with the presentation includes trauma, falls, contusion, sprain, fracture Admission/Observation Consideration of admission/observation: Escalation of care including admission/observation considered Lab Data [facility] Lab Attestation statement: I reviewed the patient's lab results. 06/21/24 08:55 06/21/24 09:52 Labs: Lab Results 06/21/24 06/21/24 06/21/24 Range/Units 08:55 09:52 14:40 WBC 5.1 (4.8-10.8) X10*3/uL RBC 4.40 (4.20-5.50) X10*6/uL Hgb 14.0 (12.0-16.0) g/dl Hct 42.6 (37.0-47.0) % MCV 96.8 (80.0-98.0) fL MCH 31.8 (27.0-33.0) pg MCHC 32.9 (31.0-35.0) g/dl RDW 11.9 (11.0-16.0) % Plt Count 281 (160-400) X10*3/uL MPV 9.4 (9.4-12.3) fL Immature Gran % (Auto) 0.4 (0.0-0.4) % Neut % (Auto) 71.9 (45-73) % Lymph % (Auto) 16.7 L (20-40) % Trinity % (Auto) 7.5 (2-11) % Eos % (Auto) 3.1 (0-4) % Baso % (Auto) 0.4 (0-2) % Lymph # (Auto) 0.9 L (1.2-4.9) X10*3/uL Trinity # (Auto) 0.4 (0.1-1.2) X10*3/uL Eos # (Auto) 0.2 (0.0-0.4) X10*3/uL Baso # (Auto) 0.0 (0.0-0.2) X10*3/uL Abs Immat Gran (auto) 0.02 (0.00-0.03) X10*3/uL Absolute Neuts (auto) 3.7 (2.0-8.3) x10*3/uL Absolute Nucleated RBC 0.000 (0.0-0.012) X10*3/uL Nucleated RBC % (auto) 0.0 (0.0-0.2) /100WBC Sodium 140 (135-145) mmol/L Potassium 4.2 (3.3-5.1) mmol/L Chloride 109 H (96-108) mmol/L Carbon Dioxide 24 (22-29) mmol/L Anion Gap 11 L (12-20) BUN 16 (9-16) mg/dL Creatinine 0.76 (0.5-1.4) mg/dL Estim Creat Clear Calc 57.4 Estimated GFR > 60 Random Glucose 95 (60-115) mg/dL Calcium 9.0 (8.4-10.2) mg/dL Magnesium 2.2 (1.6-2.6) mg/dL Total Bilirubin 0.6 (0.0-1.0) mg/dL Direct Bilirubin 0.1 (0.0-0.5) mg/dL AST 25 (5-31) U/L ALT 13 (0-31) U/L Alkaline Phosphatase 64 (39-117) U/L Total Protein 6.7 (6.5-8.0) g/dL Albumin 3.7 (3.5-5.0) g/dL Lipase 26 (8-78) U/L Urine Color Yellow Urine Appearance Clear Urine pH >= 9.0 (5.0-9.0) Ur Specific Pratts >= 1.030 H (1.005-1.025) Urine Protein Negative (Neg-Trace) mg/dL Urine Glucose (UA) Negative (Negative) mg/dL Urine Ketones Negative (Negative) mg/dL Urine Blood Negative (Negative) Urine Nitrite Negative (Negative) Ur Leukocyte Esterase Small (1+) H (Negative) Urine RBC 0-2 (0-2) /HPF Urine WBC 6-10 (0-5) /HPF Ur Squamous Epith Cells 0-2 (0-2) /HPF Urine Bacteria None Seen (None Seen) Hyaline Casts 0-2 (0-2) /LPF Independent Interpretation I performed an independent interpretation of an: CT Scan Independent Historian Clinical information obtained from an independent historian. History obtained from or confirmed by: Other (family) External Record Review External record reviewed: Outpatient record Discharge Plan Discharge Clinical Impression: Closed fracture of transverse process of lumbar vertebra Qualifiers: Encounter type: initial encounter Qualified Code(s): S32.009A - Unspecified fracture of unspecified lumbar vertebra, initial encounter for closed fracture Patient Disposition: Home, Self-Care Instructions: Vertebroplasty (DC) Additional Instructions: You were evaluated in the ED today following a fall. Your blood work is reassuring. CT scans of your head/ neck/ chest are normal. CT scan of your abdomen shows constipation. I am starting you on a bowel regimen to help move your bowels. I recommend using stool softeners such as colace 100 mg twice daily. In addition, take over the counter miralax 2-3 times daily until you begin having multiple large volume bowel movements. The CT scan of your abdomen also shows fracture of the transverse processes of your L1/L2/L3 vertebrae. Treatment for this is pain control. I recommend you take 600mg ibuprofen every 6 hours or Tylenol 650mg every 6 hours as needed for pain. If needed, you can alternate these medications so that you take one medication every 3 hours. For example, at noon take ibuprofen, then at 3pm take Tylenol, then at 6pm take ibuprofen. I am sending Oxycodone to your pharmacy for break through pain. this is a controlled pain medication. use this with caution. this can also cause constipation so it is important that you take this with the above bowel regimen. Follow up with your doctor in 2 weeks. I am also providing you a referral to an outpatient spine doctor. call them to establish care. Return with new or worsening symptoms. In the case of an emergency call 911. Prescriptions: New oxycodone 5 mg tablet 5 mg PO Q8H PRN (Reason: pain (scale score 4-6)) Qty: 9 0RF Rx Instructions: Partial Fill upon patient request. docusate sodium [Colace] 100 mg capsule 200 mg PO DAILY Qty: 14 0RF polyethylene glycol 3350 [Miralax] 17 gram/dose powder 17 g PO DAILY Qty: 510 0RF No Action atorvastatin 40 mg tablet 1 tab PO DAILY ibuprofen 800 mg tablet 1 tab PO TID PRN (Reason: Pain) melatonin 3 mg tablet 1 tab PO BEDTIME baclofen 20 mg tablet 1 tab PO TID diclofenac sodium 50 mg tablet,delayed release (DR/EC) 50 mg PO BID Qty: 20 0RF cetirizine 10 mg tablet 10 mg PO DAILY alendronate 70 mg tablet 70 mg PO QWEEK (DME) lancets [TRUEplus Lancets] 33 gauge misc See Rx Instructions .ROUTE BID Qty: 100 Rx Instructions: As directed (DME) FreeStyle Lite Strips Strip See Rx Instructions .ROUTE BID Qty: 10 Rx Instructions: As directed diclofenac sodium 1 % gel 2 g topical QID polyethylene glycol 3350 [Miralax] 17 gram/dose powder 17 g PO DAILY 30 Days Qty: 510 11RF amlodipine 2.5 mg tablet 2.5 mg PO DAILY Linzess 290 mcg capsule 290 mcg PO QAM 30 Days Qty: 30 6RF Rx Instructions: Take 1st thing in the morning with a full glass of water simethicone 180 mg capsule 180 mg PO BID 30 Days Qty: 60 6RF Rx Instructions: after meals famotidine [Pepcid] 40 mg tablet 40 mg PO BEDTIME 90 Days Qty: 90 3RF peg 3350-electrolytes [Golytely] 236-22.74-6.74 -5.86 gram recon soln 240 ml PO Q10M 1 Days Qty: 4000 0RF Rx Instructions: until fecal effluent is clear; do not exceed a total volume of 2,000 mL bisacodyl [Dulcolax (bisacodyl)] 5 mg tablet,delayed release (DR/EC) 10 mg PO BEDTIME 2 Days Qty: 4 0RF Referrals: Diamond Ponce MD [Primary Care Provider] - Claudio Alexander MD, PhD [Physician] - Print Language: Belarusian
[2024-06-21] MEDS: LORazepam 2 MG/ML VIAL 0.5 MG IVPUSH (09:02)
[2024-06-21 09:03] LABS: MANUAL DIFF FLAG NO
[2024-06-21] MEDS: Acetaminophen 1,000 MG/100 ML PIGGYBACK 400 MG IV (09:03)
[2024-06-21 09:04] LABS: Basophils Percent Auto 0.4 % (0-2); Eosinophils Absolute Auto 0.2 X10*3/uL (0.0-0.4); Eosinophils Percent Auto 3.1 % (0-4); Hematocrit 42.6 % (37.0-47.0); Imm Gran Abs Auto 0.02 X10*3/uL (0.00-0.03); Imm Gran Pct Auto 0.4 % (0.0-0.4); Lymphocytes Absolute Auto 0.9 X10*3/uL (1.2-4.9); Lymphocytes Percent Auto 16.7 % (20-40); Mean Corpuscular HGB Conc 32.9 g/dl (31.0-35.0); Mean Corpuscular Hemoglobin 31.8 pg (27.0-33.0); Mean Corpuscular Volume 96.8 fL (80.0-98.0); Mean Platelet Volume 9.4 fL (9.4-12.3); Monocytes Absolute Auto 0.4 X10*3/uL (0.1-1.2); Monocytes Percent Auto 7.5 % (2-11); Neutrophils Absolute Auto 3.7 x10*3/uL (2.0-8.3); Neutrophils Percent Auto 71.9 % (45-73); Platelet Count 281 X10*3/uL (160-400); Red Cell Distribution Width 11.9 % (11.0-16.0); White Blood Count 5.1 X10*3/uL (4.8-10.8)
[2024-06-21 10:08] VITALS: BP 167/75; PULSE 70; RESP 16; O2SAT 100
[2024-06-21 10:15] LABS: Alanine Aminotransferase 13 U/L (0-31); Albumin Level 3.7 g/dL (3.5-5.0); Alkaline Phosphatase 64 U/L (39-117); Anion Gap 11 (12-20); Aspartate Amino Transferase 25 U/L (5-31); Bilirubin Direct 0.1 mg/dL (0.0-0.5); Bilirubin Total 0.6 mg/dL (0.0-1.0); Blood Urea Nitrogen 16 mg/dL (9-16); Carbon Dioxide 24 mmol/L (22-29); Chloride 109 mmol/L (96-108); Creatinine Clr Calc Pharmacy 57.4; Estimated Glomerular Filt Rate > 60; Glucose Random 95 mg/dL (60-115); Lipase 26 U/L (8-78); Magnesium 2.2 mg/dL (1.6-2.6); Potassium 4.2 mmol/L (3.3-5.1); Sodium 140 mmol/L (135-145); Total Protein 6.7 g/dL (6.5-8.0)
[2024-06-21] MEDS: iohexoL 350 MG/ML 100 ML INFUS..BTL 85 ML IV (10:39)
[2024-06-21] MEDS: oxyCODONE HCl Immed Release 5 MG TABLET PO (13:52)
[2024-06-21 14:48] LABS: Appearance Urine Clear; Color Urine Yellow; Glucose Urine UA Negative (Negative); Leukocyte Esterase Urine Small (1+) (Negative); Nitrite Urine Negative (Negative); PH >= 9.0 (5.0-9.0); Specific Gravity - Urine >= 1.030 (1.005-1.025); UMIC TRIGGER UACC YES; Urine Blood Negative (Negative); Urine Ketones Negative (Negative); Urine Protein Negative (Neg-Trace)
--- NOTE | 2024-06-21 14:50 | PC.NURSE ---
pt ambulatory independently w/ steady gait/balance.
[2024-06-21 14:56] LABS: Bacteria Urine None Seen (None Seen); Hyaline Casts Urine 0-2 /LPF (0-2); RBC Urine 0-2 /HPF (0-2); Squamous Epithelial Cell Urine 0-2 /HPF (0-2); UACC Culture Trigger YES
[2024-06-21 15:21] VITALS: BP 125/69; PULSE 84; RESP 16; TEMP 36.5; O2SAT 97
== END 2024-06-21 15:23 | disposition home or self-care (01) ==
PROVIDERS: Emergency Provider Emergency Medicine; PCP Internal Medicine
DX: S32.018A Other fracture of first lumbar vertebra, initial encounter for closed fracture (principal); S32.028A Other fracture of second lumbar vertebra, initial encounter for closed fracture; S32.038A Other fracture of third lumbar vertebra, initial encounter for closed fracture; W10.8XXA Fall (on) (from) other stairs and steps, initial encounter; R10.9 Unspecified abdominal pain; R51.9 Headache, unspecified; E11.9 Type 2 diabetes mellitus without complications; E78.5 Hyperlipidemia, unspecified; Y93.89 Activity, other specified; Y92.038 Other place in apartment as the place of occurrence of the external cause; Y99.9 Unspecified external cause status; Z79.02 Long term (current) use of antithrombotics/antiplatelets; Z79.899 Other long term (current) drug therapy
CPT/HCPCS: 36415; 70450; 71260; 72125; 74177; 80048; 80076; 81001; 83690; 83735; 85025; 87086; 96365; 96375; 99285; J0131; J2060; Q9967

== ENCOUNTER → 2024-06-21 08:23 | Outpatient (BNV) | payer OTHER, SELFPAY | PROVIDERS: Emergency Provider Emergency Medicine; PCP Internal Medicine; Visit Provider Radiology Diagnostic Radiology | DX: K44.9 Diaphragmatic hernia without obstruction or gangrene (principal); R19.5 Other fecal abnormalities; S32.019A Unspecified fracture of first lumbar vertebra, initial encounter for closed fracture; S32.029A Unspecified fracture of second lumbar vertebra, initial encounter for closed fracture; S32.039A Unspecified fracture of third lumbar vertebra, initial encounter for closed fracture; W19.XXXA Unspecified fall, initial encounter; M50.31 Other cervical disc degeneration, high cervical region; R90.82 White matter disease, unspecified | CPT/HCPCS: 70450; 71260; 72125; 74177 ==

== ENCOUNTER 2024-06-29 13:02 | Outpatient (AMB) | payer OTHER, SELFPAY ==
--- NOTE | 2024-06-29 13:04 | A.OFFVIS_ITS ---
Vital Signs 06/29/24 13:14 Height 4 ft 11 in Weight 147 lb 11.355 oz BMI 29.8 BP 136/78 Blood Pressure Location Lt brachial Position Sitting Pulse 75 Intake Visit Reasons: CIC GERD 6 MO F/U Intake Note: Patient in office today in follow up of CIC and GERD. CC: Patient c/o constipation. Denies other GI symptoms. She states that she recently suffered a fall and her back hurts. Per patient she still waiting to be scheduled for colonoscopy. Gift Consultant Required: Yes Gift Consultant Name: son Accompanied by: Son Allergies tramadol Allergy (Severe, Verified 06/29/24 13:27) Hallucinations morphine Allergy (Intermediate, Verified 06/29/24 13:27) Hallucinations HPI HPI CIC GERD 6 MO F/U: Details: Assessment & Plan (1) Pre-op examination: Code(s): Z01.818 - Encounter for other preprocedural examination Category: Medical (2) GERD (gastroesophageal reflux disease): Code(s): K21.9 - Gastro-esophageal reflux disease without esophagitis Category: Medical (3) Chronic idiopathic constipation: Code(s): K59.04 - Chronic idiopathic constipation Category: Medical Plan [facility] #[facility] Live She continues to do well on her Linzess 290mcg, and she feels this dose is adequate. She also continues on her famotidine and simethicone. She is due for a screening colonoscopy, the last was in [address] Gonzalez. A hyperplastic polyp was removed. There are no prior problems with anesthesia or sedation. She denies any cardiac or respiratory problems. No ID problems She does not know of any FHX of crc or polyps. Orders: Orders Colonoscopy - GI Use Only 01/02/24 Z01.818 - Encounter for other preprocedural examination Complete Blood Count Auto Diff 01/02/24 Z.818 - Encounter for other preprocedural examination Comprehensive Met. Panel 01/02/24 Z.818 - Encounter for other preprocedural examination Medications: New peg 3350-electrolytes 236-22.74-6.74 -5.86 gram (Golytely) until fecal effluent is clear; do not exceed a total volume of 2,000 mL 240 mL PO Q10M 4,000 mL 0RF 1 day Z12.11 - Encounter for screening for malignant neoplasm of colon bisacodyl (Dulcolax (bisacodyl)) 10 mg (2 x 5 mg) PO BEDTIME 4 tabs 0RF 2 days LABS: Laboratory Tests 06/21/24 06/21/24 08:55 09:52 WBC 5.1 Hgb 14.0 Hct 42.6 Plt Count 281 Estimated GFR > 60 Total Bilirubin 0.6 Direct Bilirubin 0.1 AST 25 ALT 13 Alkaline Phosphatase 64 COLONOSCOPY BIOPSY TODAY'S VISIT [facility] #[place] Live She has not heard RE: colonoscopy, I re send the note to schedulers. She is NOT moving her bowels, there was some confusion at first because she says ?that pill you give me does not work and another doctor gave it to me to and it does not do anything. ? I ask her what it looks like and she says it is a red jelly pill, so this is Colace. I showed her a picture of the Linzess and she says ?yes this worked when I had it but I have been out of it for 3 months. ? We will restart her Linzess 290 micro g and then evaluate her response. She continues on her famotidine with good control of her GERD. Return office visit next available [facility] Medical History (Updated 06/29/24 @ 13:47 by JOANIE Calabrese) COVID-19 Pre-op examination Diabetes type 2, controlled High cholesterol Surgical History H/O colonoscopy H/O: hysterectomy H/O section Social History Alcohol intake: never Patient Tobacco Use Status: Never used Tobacco Advance Directives Date on File: 10/26/21 Current occupation: [employer] Review of Systems Const Denies fatigue, Denies fever(s), Denies night sweats, Denies poor appetite and Denies weight loss Eyes Details: glasses Reports requires corrective lenses ENT Reports Normal hearing present, Denies dental pain, Denies dysphagia, Denies hearing loss, Denies mouth pain, Denies odynophagia, Denies throat swelling, Denies tongue swelling and Reports other (Dentition adequate) Card Reports no additional complaints Resp Reports no additional complaints GI Details: Denies abdominal pain, Denies melena, Reports bloating, Denies hematochezia, Reports constipation, Denies GI cramping, Denies dysphagia, Denies excessive flatus, Denies early satiety, Reports heartburn, Denies diarrhea, Denies nausea, Denies odynophagia, Denies vomiting and Denies hematemesis Skin/Breast Denies pruritus, Denies lesions, Denies rash and Denies jaundice Neuro Reports Normal hearing present and Denies Abnormal speech present Endo Denies fatigue Aller/Immun Denies throat swelling and Denies tongue swelling Physical Exam Vital Signs: Last Vital Signs Pulse 75 06/29/24 13:14 BP 136/78 06/29/24 13:14 BMI result Body Mass Index 29.8 Const General: cooperative, no acute distress, well developed and well groomed Nutritional Appearance: well nourished and obese Orientation/consciousness: oriented to person, oriented to place and oriented to time Limitations: language barrier HEENT Head: Yes normocephalic and Yes atraumatic Eyes General: appearance normal, both eyes and all related structures Pupils: Equal, round and reactive pupils present Neck Neck: Yes normal visual inspection and Yes no lymphadenopathy Thyroid: Thyroid normal Resp Effort & Inspection: normal respiratory effort and able to speak in complete sentences Auscultation: clear to auscultation bilaterally Cardio Rate: regular rate Rhythm: regular rhythm Heart sounds: Normal, physiologic split S2 sound present Peripheral pulses: radial pulses present and posterior tibial pulses present GI Inspection: No distended, No Abdominal panniculus present and Yes obesity Palpation (GI): Soft to palpation, nontender, no guarding, not rigid and No hepatosplenomegaly present Percussion: Yes normal to percussion Auscultation: normal bowel sounds Rectal Exam - Female: deferred Skin General skin exam: no rashes or lesions noted, turgor normal, skin not dry, no jaundice, No spider nevi and no striae Rashes: no rashes Nails: normal Neuro General: oriented to person, oriented to place and oriented to time Cranial nerves: Yes Equal, round and reactive pupils present and Yes Normal hearing present Speech: No Abnormal speech present Extrem General: Yes normal to inspection, No clubbing, No cyanosis and No edema Psych Appearance: grossly normal and well kempt Mental Status: mental status grossly normal Speech and movement: Normal speech and movement present Affect: normal affect Attitude: cooperative Thought process: Normal thought process present and not confabulating Thought content: Normal thought content present Insight: Limited insight present (Psych) Judgement: Limited judgement present (Psych) Assessment & Plan Assessment & Plan (1) Chronic idiopathic constipation: Code(s): K59.04 - Chronic idiopathic constipation Category: Medical (2) Abdominal bloating: Code(s): R14.0 - Abdominal distension (gaseous) Category: Medical (3) GERD (gastroesophageal reflux disease): Code(s): K21.9 - Gastro-esophageal reflux disease without esophagitis Category: Medical Plan [facility] #[place] Live She has not heard RE: colonoscopy, I re send the note to schedulers. She is NOT moving her bowels, there was some confusion at first because she says ?that pill you give me does not work and another doctor gave it to me to and it does not do anything. ? I ask her what it looks like and she says it is a red jelly pill, so this is Colace. I showed her a picture of the Linzess and she says ?yes this worked when I had it but I have been out of it for 3 months. ? We will restart her Linzess 290 micro g and then evaluate her response. She continues on her famotidine with good control of her GERD. Return office visit next available Medications: Refilled simethicone after meals 180 mg PO BID 60 caps 6RF 30 days R14.0 - Abdominal distension (gaseous) linaclotide (Linzess) Take 1st thing in the morning with a full glass of water 290 mcg PO QAM 30 caps 6RF 30 days K59.04 - Chronic idiopathic constipation famotidine (Pepcid) 40 mg PO BEDTIME 90 tabs 3RF 90 days K21.9 - Gastro- esophageal reflux disease without esophagitis Discontinued docusate sodium (Colace) Discontinued Reason: Patient no longer taking 200 mg (2 x 100 mg) PO DAILY 14 caps 0RF polyethylene glycol 3350 (Miralax) Discontinued Reason: Duplicate 17 grams PO DAILY 30 days 510 grams 11RF K59.04 - Chronic idiopathic constipation Coding Level of Care Code Est Pt Level 3 (69510) Diagnoses Chronic idiopathic constipation K59.04 Abdominal bloating R14.0 GERD (gastroesophageal reflux disease) K21.9
[2024-06-29 13:14] VITALS: BP 136/78; PULSE 75; BMI 29.8
--- OUTSIDE RECORDS SUMMARY | 2024-06-29 15:51 | XMS_ITS | Data Portability ---
Author Organization [facility] Address [address] [place] [address] Assessment Encounter Date Assessment Date Assessment LastModified by Organization Details LastModified Time 06/24/2024 06/24/2024 I have reviewed and agree with the assessment and plan as documented by the line tender. I provided real time medical direction for this encounter and was immediately available to provide additional phone based assistance as needed. History as noted by line tender. Pt with history of chronic pain, dementia, HTN, HLD, DM2, LBP w/sciatica. Pt speaks only italian, history and evaluation done with line tender with help of communications field technician. Recent urgent care visit note from 06/23 reviewed. Pt reports a mechanical fall from standing height on 06/21, falling on stairs, injuring her L back and hitting her head. No LOC. She was seen in the ED. Head and c-spine CT negative. CT chest, abdomen, pelvis with non displaced fractures of the Left transverse processes of L1, L2, and L3. No other injuries noted. Urinalysis negative for blood. Pt discharged home 06/21 with oxycodone and tylenol for pain. She was seen in the urgent care yesterday, 06/23, with persistent pain despite the meds, although she had not started taking the tylenol. It was advised that she go to the ED for pain control but she declined. She was told to take her prescribed meds in addition to ibuprofen and lidocaine patches, which were reportedly prescribed, per the note. Pt not on anticoagulatio n. Today, pt is reporting persistent pain. No LE numbness, weakness, or paresthesias. No abdominal pain, or hematuria. She has only taken the oxycodone and 1 dose of tylenol. She reports that she does not have any ibuprofen or lidocaine patches. On exam, pt appears comfortable, no distress. Vitals normal. L mid/lower back with bruising and tenderness. Neuro exam non focal. Impression: Pt s/p mechanical fall on 06/21 with head strike, no LOC and L flank trauma. In the ED, trauma scan with CT head, c-spine, CAP negative for injuries except for non displaced fx's of L transverse processes of L1, 2, 3. No hematuria on UA. Pt is medicated with toradol, 30mg IM. Pt is instructed to continue the oxycodone as prescribe and to take the tylenol tid. Pt is also prescribed ibuprofen 600mg to take q8h as well as lidocaine patches to use daily as well. Pt instructed to follow up with her primary care doctor next week to ensure her pain is improving and to return to the ED for evaluation if she develops any worsening back pain or any new symptoms such as weakness/numbn ess in her legs or any hematuria. btils Not available 06/24/2024 14:46:49 Plan of Treatment Reminders Order Date Submit Date Provider Last Modified By Organization Details Last Modified Time Details Appointments None recorded. Lab None recorded. Referral None recorded. Procedures None recorded. Surgeries None recorded. Imaging None recorded. Medication Orders ibuprofen 600 mg tablet 2024 025 [facility], [address] [place] [address], [id number], 10:34:32 lidocaine 4 % topical patch 2024 025 [facility], [address] [place] [address], [id number], 15:49:38 ketorolac 60 mg/2 mL intramuscul ar solution 2024 025 btils Not available 14:33:58 Patient TargetsNo targets recorded. Patient InstructionsNo instructions recorded. Reason for Referral None Reported. Medical Equipment None Reported. Allergies Allergen ID Allergen Name Allergen Category Reaction Reaction Severity Criticality Documentation Date Start Date Code Code System Note Provider Name and Address Organization Details Recorded Time 73020 morphine medicatio n Not available Not available Not available 06/24/2024 7052 RxNorm Not Available [facility] - production 10:43:27 25018 tramadol medicatio n Not available Not available Not available 06/24/2024 95947 RxNorm Not Available [facility] - production 10:43:27 Medications Name Sig Start Date Stop Date Status Note LastModified by Organization Details LastModified Time amoxicillin 500 mg capsule TAKE 1 CAPSULE BY MOUTH EVERY 8 HOURS FOR 7 DAYS active Not Available Not Available No t Available atorvastatin 40 mg tablet TAKE 1 TABLET BY MOUTH ONCE DAILY active Not Available Not Available No t Available lidocaine 4 % topical patch Apply 1 patch every day by topical route as needed, for back pain. 2024 active Not Available Not Available Not Avai lable cetirizine 10 mg tablet TAKE 1 TABLET BY MOUTH DAILY active Not Available Not Available Not Available Stool Softener 100 mg capsule TAKE 2 CAPSULES BY MOUTH EVERY DAY active Not Available Not Available No t Available fluconazole 150 mg tablet TAKE 1 TABLET BY MOUTH ONCE active Not Available Not Available N ot Available ondansetron HCl 4 mg tablet TAKE 1 TABLET BY MOUTH EVERY 8 HOURS NEEDED FOR NAUSEA AND VOMITING FOR UP TO 5 DAYS active Not Available Not Available No t Available alendronate 70 mg tablet take 1 tablet by mouth once a week with 6 to 8 oz of water 30 min before first food of day. do not lie down for 30 minutes active Not Available Not Available No t Available clotrimazole 1 % vaginal cream INSERT 1 APPLICATORF UL VAGINALLY EVERY EVENING FOR 7 DAYS active Not Available Not Available No t Available acetaminophe n 500 mg tablet TAKE 1 TABLET BY MOUTH EVERY 6 HOURS NEEDED FOR MILD PAIN active Not Available Not Available No t Available triamcinolon e acetonide 0.1 % topical cream APPLY TOPICALLY TWICE DAILY IN THE MORNING AND AT BEDTIME NEEDED PAIN AND FOR SWELLING active Not Available Not Available No t Available acetaminophe n ER 650 mg tablet,exten ded release TAKE 1 TABLET BY MOUTH EVERY 8 HOURS NEEDED FOR MILD PAIN. DO NOT BREAK, CRUSH, DISSOLVE OR CHEW active Not Available Not Available No t Available Triple Antibiotic 3.5 mg-400 unit-5,000 unit/gram topical ointment APPLY TO THE AFFECTED AREA(S) EVERY DAY NEEDED active Not Available Not Available No t Available Proctozone-H C 2.5 % topical cream perineal applicator APPLY RECTALLY DIRECTED TWICE DAILY active Not Available Not Available Not Available benzonatate 100 mg capsule TAKE 1 CAPSULE BY MOUTH THREE TIMES DAILY IN THE MORNING, AT NOON AND AT BEDTIME NEEDED FOR COUGH FOR UP TO 10 DAYS. DO NOT BREAK, CRUSH, DISSOLVE OR CHEW active Not Available Not Available No t Available hydrocortiso ne 2.5 % topical cream APPLY A PEA SIZED AMOUNT TO SKIN TWICE DAILY FOR ONE WEEK active Not Available Not Available No t Available bisacodyl 5 mg tablet,delay ed release TAKE 2 TABLETS BY MOUTH EVERY DAY AT BEDTIME FOR 2 DAYS active Not Available Not Available No t Available ibuprofen 600 mg tablet Take 1 tablet every 6-8 hours by oral route as needed, for back pain. 2024 active Not Available Not Available Not Avai lable albuterol sulfate HFA 90 mcg/actuatio n aerosol inhaler INHALE 2 PUFFS BY MOUTH EVERY 4 HOURS NEEDED FOR WHEEZING OR SHORTNESS OF BREATH active Not Available Not Available No t Available fluticasone propionate 50 mcg/actuatio n nasal spray,suspen enrique INSTILL 1 SPRAY IN EACH NOSTRIL ONCE DAILY active Not Available Not Available N ot Available amoxicillin 875 mg-potassium clavulanate 125 mg tablet TAKE 1 TABLET BY MOUTH TWICE DAILY FOR 7 DAYS active Not Available Not Available No t Available oxycodone 5 mg tablet TAKE 1 TABLET BY MOUTH EVERY 8 HOURS NEEDED FOR PAIN (4-6 PAIN SCALE) active Not Available Not Available Not Available cyclobenzapr ine 5 mg tablet TAKE 1 TABLET BY MOUTH THREE TIMES DAILY FOR 10 DAYS active Not Available Not Available Not Available peg 3350-electro lytes 236 gram-22.74 gram-6.74 gram-5.86 gram solution MIX DIRECTED AND TAKE 240 ML EVERY 10 MINUTES UNTIL FECAL EFFLUENT IS CLEAR. DO NOT EXCEED 2,000 ML. active Not Available Not Available No t Available diclofenac 1 % topical gel APPLY 2 GRAMS TO AFFECTED AREA(S) FOUR TIMES DAILY NEEDED FOR PAIN active Not Available Not Available No t Available ClearLax 17 gram/dose oral powder TAKE 17 GM MIXED IN 8 OUNCES OF WATER ONCE DAILY active Not Available Not Available No t Available Vitamin D3 50 mcg (2,000 unit) capsule TAKE 1 CAPSULE BY MOUTH EVERY DAY active Not Available Not Available No t Available guaifenesin ER 600 mg tablet, extended release 12 hr TAKE 2 TABLETS BY MOUTH TWICE DAILY IN THE MORNING AND AT BEDTIME NEEDED FOR COUGH OR FOR CONGESTION. DO NOT BREAK, CRUSH, DISSOLVE OR CHEW active Not Available Not Available No t Available Compact Space Chamber USE DIRECTED WITH albuterol inhaler NEEDED active Not Available Not Available No t Available Reguloid (psyllium husk-sucrose ) 3 gram/12 gram oral powder MIX 1 TABLESPOONF UL IN WATER AND TAKE TWICE DAILY TO THREE TIMES DAILY IF TOLERATED active Not Available Not Available No t Available Vitals Date Recorded Respiratory rate Oxygen saturation Oxygen saturation in Arterial blood by Pulse oximetry Heart rate Body temperature Systolic blood pressure Diastolic blood pressure Provider Name and Address Organization Details Last Updated DateTime 5 18 /min 99 % 99 % 85 /min 98 [degF] 123 mm[Hg] 78 mm[Hg] Not Available [facility] - production 5 14:19:27 Social History None recorded. Functional Status None recorded. Mental Status None recorded. Family History Nothing Reported. Medical History No medical history recorded. Gynecological HistoryNo gynecological history recorded. Obstetrics History GPAL:G 0 P 0 0 0 0 Past Encounters Encounter ID Performer Location Encounter Start Date Encounter Closed Date Diagnosis/Indication Diagnosis SNOMED-CT Code Diagnosis ICD10 Code Diagnosis Note [id number] Efren Johnston MD Main - [address] [address] 06/24/2024 14:19:25 06/24/2024 15:40:43 Closed fracture lumbar vertebra [id number] S32.008D Health Concerns Section Related Observation LastModified by Organization Detai ls LastModified Time None Recorded Concern Status LastModified by Organization Details LastModified Time None Recorded Advance Directives Directive None Recorded Payers Encounter Date Sequence Insurance Name Policy Number Policy Bae Covered Member ID Bae Member ID Guarantor Name 06/24/2024 1 [facility] - DOS ON OR AFTER 2022 - DUAL ELIGIBLE - GROUP HOME OPTIONS AND ONE CARE (MEDICARE REPLACEMENT/AD VANTAGE - HMO) Eveline Herrera [id number] Eveline Herrera Notes Date Note Type Note Provider Name and Address Organization Details Recorded Time 06/24/2024 text/html This was a supervised home visit with line tender Rishi Heard. HPI: She fell on 06/21 and went to the ER . She was going to the ER today as well but wanted insted to evaluate her. She had a cT scan, but has 3 small hairline fractures in her back . She is unsure , but she continues to have pain in the back. They gave her some pain medication but did not give her a brace or any follow up care. She is not on blood thinners. ................... ................... ................... ................... ................... ................... ................... ........ [facility] Nurse Triage Notes (Cecy Rios): Reason For Request: Pain in her back Chief Complaints: Back Pain PMH: Osteoporosis, Diabetes Mellitus Type 2 PMH Reviewed at 06/24/2024:43 Allergies Reviewed at 06/24/2024 10:43 ................... ................... ................... ................... ................... ................... ................... ........ [employer] Note From Rishi Heard: [facility] dispatched to the address listed above for the report of a female green party with back pain. Arrival on scene, patient was found inside apartment with family seated in chair, alert and oriented x4, patent airway, breathing non labored speaking in complete sentences, skin WPD in no immediate distress. +/= Chest rise. -SOB, -CP, -NVD, -Trauma, -Fever. GCS 15. Lung sounds clear in all morales. [facility] noted patient is Portuguese speaking only and daughter translated for [facility]. Patient reports that she had a mechanical fall from standing height on 06/21 which resulted in hitting her left flank on a chair. At time of fall, patient denies dizziness, head strike, LOC, neck pain, and or blood thinners. Patient reports that she was evaluated at ED, cleared for neck CT, and notified that she has 3 hairline fracture on L1, L2, and L3 vertebrae. Patient advised that she was prescribed oxycodone and Tylenol to take for pain management which patient states is not helping her pain. Patient reports that she has not been taking any Ibuprofen. Patient reports normal food/fluid intake, and has been medication compliant. Patient denies any numbness or tingling of lower extremities, denies any issues urinating. Patient vital signs obtained as noted. [facility] consulted, provided orders for 30mg Toradol IM and advised that he would send prescription for Ibuprofen and Lidocaine patch to patient preferred pharmacy. 30mg Toradol IM administered in left deltoid without incident, patient rights verified. Red flags discussed with patient and advised to call 911 if condition worsens. SC[facility] clear. [facility] Medication Orders: ketorolac 60 mg/2 mL intramuscular solution: Administered ................... ................... ................... ................... ................... ................... ................... ........ [facility] Consulted: Efren Johnston ................... ................... ................... ................... ................... ................... ................... ........ Disposition: Fulfilled Efren Johnston MD [address] [facility],[address] [facility], [place], [address], [place]ill[place] - [employer]domain 06/24/2024 15:32:16 OBGyn Episode No OBEpisode recorded.
--- OUTSIDE RECORDS SUMMARY | 2024-06-29 15:51 | XMS_ITS | Encounter Summary ---
Author Organization [facility] Address [address] [facility] [address] [place] [address] Care Team Providers Care Digital Project Manager Name Role Phone Diamond Ponce MD Primary Care Provide r Reason for Visit * Reason Onset Date Comments triage 04/23/2022 Encounter Details Date Type Department Care Team ([facility] st Contact Info) Description 04/23/2022 Telephone [facility] MEDICINE [address], [place] [phone] Diamond Ponce MD [address], [place] [phone] triage Social History Tobacco Use Types Packs/Day [...] caller The caller accepted this outcome speaks samoan documented in this encounter Plan of Treatment Upcoming Encounters Date Type Department Care Team (Late st Contact Info) Description 07/14/2024 2:30 PM EDT Office Visit [facility] ADULT DENTAL [address] [place] [address] Aron No DDS [address] [place] [address] documented as of this encounter Visit Diagnoses Not on filedocumented in this encounter Care Teams Digital Project Manager Relationship Specialty Start Date End Date Diamond Ponce MD [address] [place] [address] PCP - General Family Medicine 07/01/19 documented as of this encounter
--- OUTSIDE RECORDS SUMMARY | 2024-06-29 15:51 | XMS_ITS | Encounter Summary ---
Author Organization [employer] Address [address] [place] [address] Care Team Providers Care Radio Board Operator Announcer Name Role Phone Diamond Ponce MD Primary Care Provide r Reason for Visit * Reason Onset Date Comments Med Refill 04/23/2022 Encounter Details Date Type Department Care Team ([facility] st Contact Info) Description 04/23/2022 Telephone [facility] [address] [place] [address] Diamond Ponce MD [address] [place] [address] Med Refill Social History Tobacco Use Types [...] Description 07/14/2024 2:30 PM EDT Office Visit [facility] [address] [place] [address] Aron No DDS [address] [place] [address] documented as of this encounter Visit Diagnoses Not on filedocumented in this encounter Care Teams Radio Board Operator Announcer Relationship Specialty Start Date End Date Diamond Ponce MD [address] [place] [address] PCP - General Family Medicine 07/01/19 documented as of this encounter
--- OUTSIDE RECORDS SUMMARY | 2024-06-29 15:51 | XMS_ITS | Clinical Summary ---
Author Organization [employer] Address [address] [place] [address] [address] [place] [address] Care Team Providers Care General Adjuster Name Role Phone Diamond Ponce MD Primary [...] complication, without long-term current use of insulin ([facility]) 1 each by Other route every 12 (twelve) hours. 100 each 2 023 Active cholecalciferol (Vitamin D-3) 50 MCG (1999 UT) capsuleIndicati ons:Vitamin D deficiency Take 1 capsule by mouth daily 30 capsule 11 024 Active Linzess 290 MCG capsule TAKE 1 CAPSULE BY MOUTH EVERY MORNING WITH A FULL GLASS OF WATER Active docusate sodium (Colace) 100 MG capsuleIndicati ons:Constipatio n, unspecified constipation type Take 1 capsule (100 mg) by mouth at bedtime. 90 capsule 1 024 Active triamcinolone (Kenalog) 0.1 % creamIndication [...] Once per day. 16 g 3 025 Active albuterol 108 (90 Base) MCG/ACT inhaler Inhale 2 puffs every 4 (four) hours if needed for wheezing or shortness of breath. 18 g 025 2025 Active Spacer/Aero-Hol ding Chambers (AeroChamber Mini Chamber) device Use with albuterol MDI as needed 1 each Active hydrocortisone (Anusol-HC) 2.5 % rectal creamIndication s:Other hemorrhoids Insert into the rectum 2 times daily. 28 g 3 025 Active Reguloid 28.3 % powder MIX 1 TABLESPOONFUL IN WATER AND TAKE TWICE DAILY TO THREE TIMES DAILY IF TOLERATED Active magnesium gluconate 250 MG tablet Take 1 tablet by mouth Once per day. Active [place]-3 Fatty Acids (OMEGA 3 500 PO) 1 tablet by mouth every other day Active alendronate (Fosamax) 70 MG tabletIndicatio ns:Age-related osteoporosis without current pathological fracture take 1 tablet by mouth once a week with 6 to 8 oz of water 30 min before first food of day. do not lie down for 30 minutes 12 tablet 025 Active Diclofenac Sodium 1 % gelIndications: Costochondritis APPLY 2 GM TOPICALLY TO THE AFFECTED AREA IF NEEDED FOR PAIN 100 g 025 Active acetaminophen (Tylenol) 500 MG tablet Take 2 tablets (1,000 mg) by mouth every 6 (six) hours if needed for moderate pain or fever for up to 25 doses. 50 tablet 025 Active lidocaine (Lidoderm) 5 % patchIndication s:Chest wall pain Apply 1 patch topically Once per day. Remove & discard patch within 12 hours or as directed by MD. May use 2 patches at once. 60 patch 2 Active acetaminophen (Tylenol 8 Hour) 650 MG ER tablet Take 1 tablet (650 mg) by mouth every 8 (eight) hours if needed for mild pain. Do not crush, chew, or split. 40 tablet 1 025 2024 Diclofenac Sodium 1 % gelIndications: Costochondritis APPLY 2 GM TOPICALLY TO THE AFFECTED AREA IF NEEDED FOR PAIN 100 g 025 2024 Discontinued(R eorder (will not trigger notification to Pharmacy)) cyclobenzaprine (Flexeril) 5 MG tabletIndicatio ns:Chest wall pain Take 1 tablet (5 mg) by mouth 3 times daily for 10 days. 30 tablet 025 2024 lidocaine (Lidoderm) 5 % patchIndication s:Chest wall pain Apply 1 patch topically Once per day. Remove & discard patch within 12 hours or as directed by MD. 30 patch 025 2024 Discontinued(R eorder (will not trigger notification to Pharmacy)) Active Problems Problem Noted Date Diagnosed Date Chest wall pain 06/15/2024 Assessment & Plan (06/15/2024 2:33 PM EDT): Apply heat on affected area I will prescribe short course of Flexeril 5 mg every 8 hours, patient was educated about side effects of this medication and advised not to do any activity that requires her concentration and fall precautions were discussed Ibuprofen as needed I prescribed for her lidocaine patch to apply locally on area of muscle spasm Pain of upper abdomen 05/24/2024 Assessment & [...] 06/03/2023 Dyspnea on exertion 05/23/2023 Fractured dental jewish with loss of materi al 04/02/2023 Encounter [...] 04/24/2022 Essential hypertension 04/24/2022 Assessment & Plan (06/15/2024 2:31 PM EDT): I advised - Aerobic exercise to reduce BP. Initial [...] consulting health care provider Assessment & Plan (12/09/2023 2:07 PM EDT): [...] diabetes mellitus without complication Assessment & Plan (06/15/2024 2:32 PM EDT): Diabetes is: controlled - Lab Results Component Value Date HGBA1C 6.4 (H) 03/03/2024 HGBA1C 6.8 (A) 12/09/2023 HGBA1C 6.8 (A) 05/23/2023 - Lab Results Component Value Date MICROALBUR <5.0 03/03/2024 CREATININE 0.82 03/03/2024 -Changes: None - Diabetic eye exam: Up-to-date - Diabetic foot exam: Pending - Continue lifestyle modifications - Continue current medications - Follow up: 3 months Assessment & Plan (03/02/2024 3:43 PM EST): [...] Encounters Date Type Department Care Team Description 06/29/2024 Orders Only [facility] [address] [place] [address] Carla Mckeon 06/25/2024 Telephone [facility] [address] [place] [phone] Shauna Hunt RN PA for lidocaine patches faxed 06/23/2024 10:40 AM EDT Office Visit [facility] [address] [place] [phone] Clyde Chase MD Closed fracture of transverse process of lumbar vertebra, initial encounter (CMS/[facility]) (Primary Dx); Costochondritis; Chest wall pain 06/23/[address] [address] Clara Hightower ANP 06/21/2024 Orders Only GENERIC EXTERNAL DATA DEPARTMENT Provider, Generic External Data 06/15/2024 1:45 PM EDT Office Visit [address] [address] Diamond Ponce MD Essential hypertension (Primary Dx); Type 2 diabetes mellitus without complication, without long-term current use of insulin (CMS/HCC); Screening for colon cancer; Chest wall pain 06/15/2024 Travel 06/07/2024 Patient Outreach [address] [address] Diamond Ponce MD Pre-visit Planning (SDOH screening negative and tobacco screening negative) 06/02/[address] [address] Clara Hightower ANP 05/25/2024 Refill [facility] [address] [place] [address] Diamond Ponce MD Age-related osteoporosis without current pathological fracture 05/25/[address] [address] Lizbet Vickers, PharmD 05/24/2024 2:00 PM EST Office Visit [facility] [address] [place] [phone] Daija Garrison MD Pain of upper abdomen (Primary Dx); External hemorrhoid; Other hemorrhoids; Costochondritis 05/06/2024 1:40 PM EST [facility] [address] [address] Doris Dugan DO Influenza A (Primary Dx); Viral upper respiratory tract infection; Acute maxillary sinusitis, recurrence not specified 05/06/[address] [address] Diamond Ponce MD 05/06/2024 Telephone [facility] [address] [address] Doris Dugan DO 04/22/2024 2:15 PM EST Office Visit [address] [address] Clara Hightower ANP Essential hypertension (Primary Dx); Pain of upper abdomen; Chronic left shoulder pain; Generalized abdominal pain 04/22/2024 Travel 04/20/[address] [address] Diamond Ponce MD Call Back Request 04/19/2024 3:20 PM EST Office Visit [facility] [address] [place] [phone] Elvis Matta MD Chest pain, unspecified type (Primary Dx) from Last 3 Months Immunizations Name Administration [...] housing situation today? I have denia menjivar 06/07/[address] you li ve. Do you have problems with any of the following? None of the above 06/07/2024 Food Insecurity Answer Date Recorded Within the past 12 months, y ou worried that your food would run out before you got money to buy more: Never True 06/07/2024 Within the past 12 months,th e food you bought just didn't last and you didn't have enough money to get more: Never True Transportation Answer Date Recorded In the past 12 months, has l ack of transportation kept you from medical appts, meetings, work or from getting things needed for daily living? No 06/07/2024 Utilities Answer Date Recorded In the past 12 months, has t he electric, gas, oil or water company threatened to shut off services in your home? No 06/07/2024 Depression Answer Date Recorded Patient Health Questionnaire-2 Score 0 05/23/2023 Internet Access Answer Date Recorded Internet Access Q1 Yes 06/07/2024 Internet Access Q2 Not on file 06/07/2024 Comments Unknown Sex and Gender Information Value Date Recorded Sex Assigned at Female 01/21/2022 10:30 AM EDT Legal Sex Female 10:30 AM EDT Gender Identity Female 01/21/2022 10:30 AM EDT Sexual Orientation Straight 01/21/2022 10 :30 AM EDT Last Filed Vital Signs Vital Sign Reading Time Taken Comments Blood Pressure 140/75 06/23/2024 10:39 AM EDT Pulse 89 06/23/2024 10:39 AM EDT Temperature 36.8 ??C (98.2 ??F) 06/23/2024 10:39 AM E DT Respiratory Rate 18 06/23/2024 10:39 AM EDT Oxygen Saturation 98% 06/23/2024 10:39 AM EDT Inhaled Oxygen Concentration - - Weight 67.1 kg (148 lb) 06/15/2024 1:39 PM EDT Height 149.9 cm (4' 11 ) 06/15/2024 1:39 PM EDT Body Mass Index 29.89 06/15/2024 1:39 PM EDT Plan of Treatment Upcoming Encounters Date Type Department Care Team (Late st Contact Info) Description 07/14/2024 2:30 PM EDT Office Visit [facility] [address] [place] [address] Aron No DDS [address] [place] [address] Health Maintenance Due Date Last Done Comments [...] 03/13/2024 03/13/2023, 03/13/2023, 03/13/2023, Additional history exists Depression Screening 05/22/2024 05/23/2023, 05/23/19 Mammogram 07/13/2024 07/14/2023, 06/22, 07/09/2022, Additional history exists Diabetes: Hemoglobin A1C 09/01/2024 024, 12/09/2023, 05/23/2023, Additional history exists Influenza Vaccine (#1) 2024 , 01/03/2022, 02/23/2021, Additional history exists Postponed from 11/23/2023 (Patient Refused) HPV/Cotest 11/01/2024 12/02/2018 Pap Smear 11/01/2024 Alcohol/Substance Use Screening 12/08/2024 12/09/2023 Diabetes: Urine Protein Screening 03/03/2025 03/03/2024, 01/14/2023 Lipid Panel 03/03/2025 03/03/2024, 12/23, 09/11/2021, Additional history exists SDOH Screening 06/07/2025 06/07/2024 Tobacco Screening 06/23/2025 06/23/2024 Eye Exam 10/02/2025 10/03/2023, 09/21, 10/03/2023, Additional [...] Procedure Name Priority Date/Time Associated Diagnosis Comments URINALYSIS, COMPLETE, WITH REFLEX TO CULTURE Routine 06/21/2024 2:[address] CHEST W CONTRAST Routine 06/21/2024 1 0:[address] ABDOMEN PELVIS W CONTRAST Routine 06/21/2024 10:[address] CERVICAL SPINE WO CONTRAST Routine 06/21/2024 10:[address] HEAD WO CONTRAST Routine 06/21/2024 1 0:27 AM EDT LIPASE Routine 06/21/2024 9:52 AM EDT MAGNESIUM Routine 06/21/2024 9:52 AM EDT BASIC METABOLIC PANEL Routine 06/21/2024 9:52 AM EDT HEPATIC FUNCTION PANEL Routine 9:52 AM EDT CBC WITH AUTO DIFFERENTIAL Routine 06/21/2024 8:55 AM EDT CULTURE, URINE, ROUTINE Routine 06/21/2024 12:00 AM EDT POCT GLUCOSE Routine 06/15/2024 1:40 PM EDT Type 2 diabetes mellitus without complication, without long-term current use of insulin (CMS/HCC) HEPATIC FUNCTION PANEL Routine 1:51 PM EST [...] Routine 05/06/2024 1:46 PM EST Influenza A BIOPSY VAGINAL Routine 05/04/2024 12:00 AM EST ECG 12-LEAD Routine 04/19/2024 2:39 PM EST Chest pain, unspecified type HEPATITIS C AB W/REFL TO HCV RNA, QN, PCR Routine 03/03/2024 7:57 AM EST Type 2 diabetes mellitus without complication, without long-term current use of insulin (CMS/HCC) ALBUMIN, RANDOM URINE W/CREATININE Routine 03/03/2024 7:57 AM EST Type 2 diabetes mellitus without complication, without long-term current use of insulin ([facility]) HEMOGLOBIN A1C Routine 03/03/2024 7:57 AM EST Type 2 diabetes mellitus without complication, without long-term current use of insulin ([facility]) LIPID PANEL, STANDARD Routine 03/03/2024 7:57 AM EST Type 2 diabetes mellitus without complication, without long-term current use of insulin ([facility]) BI MAMMOGRAM SCREENING TOMOSYNTHESIS BILATERAL Routine 07/14/2023 1:53 PM EDT Full PROPHYLAXIS - ADULT Routine 01/02/2023 3:00 PM EDT Dental calculus BITEWINGS - 4 RADIOGRAPHIC IMAGES Routine 01/02/2023 3:00 PM EDT Tipped teeth Dental calculus Generalized gingival recession PERIODIC ORAL EVALUATION - ESTABLISHED PATIENT Routine 01/02/2023 3:00 PM EDT INTRAORAL - COMPLETE SERIES OF RADIOGRAPHIC IMAGES Routine 11/28/2020 12:00 AM EDT ZZZ HISTORICAL HPV MRNA E6/E7 Routine 12/02/2018 3:30 PM EDT HM COLONOSCOPY Routine 06/16/2013 from Last 3 Months or Most Recently Relevant to Health Maintenance Results * (ABNORMAL) Urinalysis, Complete, with Reflex to Culture (06/21/2024 2:40 PM EDT) Color Urine Yellow LABS Appearance Urine Clear LABS PH >=9.0 5.0 - 9.0 LABS Glucose Urine UA Negative Negative mg/dL LABS Urine Blood Negative Negative LABS Specific [place] - Urine >=1.030(H) 1.005 - 1.025 LABS Urine Protein Negative Neg-Trace mg/dL LABS Urine Ketones Negative Negative mg/dL LABS Nitrite Urine Negative Negative [facility] LABS Leukocyte Esterase Urine Small (1+)(A) Negative LABS RBC Urine 0-2 0 - 2 /HPF LABS Urine WBC 6-10 0 - 5 /HPF LABS Urine Squamous Epithelial Cell 0-2 0 - 2 /HPF LABS Urine Bacteria None Seen None Seen [facility] LABS Hyaline Casts, Urine 0-2 0 - 2 /LPF LABS 06/21/2024 2:40 PM EDT 06/21/2024 2:43 PM EDT Narrative LABS - 06/21/2024 2:56 PM EDT Urine, Clean Catch us Generic External Data Provider LAB URINE ORDERAB LES Final Result Performing Organization Address [facility]/State/ZIP Co de Phone Number LABS [address] [place] [address] [phone] * CT Abdomen Pelvis w/ Contrast (06/21/2024 10:35 AM EDT) Anatomical Region Laterality Modality Body, Pelvis, Abdomen Computed T omography 06/21/2024 10:3 5 AM EDT Narrative 06/21/2024 11:35 AM EDT ? [facility] ?[address] ?[place] [address] ? CT Scan Report ? Signed ? Patient: Eveline Novoa ? MR#: [id number] ? : 1955 ?Acct:[id number] ? Age/Sex: 69 / F ?ADM Date: 06/21/24 ? Loc: HO.ED ? Attending Dr: ? Ordering Physician: Ana Rehman DO ?? Date of Service: 06/21/24 ?? Procedure(s): CT abdomen pelvis w IV con ?? Accession Number(s): [id number] ? cc: Diamond Ponce MD; Ana Rehman DO ? Report Number: ?? [id number]: Total DLP = ??598.94 mGy-cm ?? EXAMINATION: ??CT CHEST WITH IV CONTRAST, CT ABDOMEN PELVIS WITH IV ?? CONTRAST ? INDICATION: L rib pain post fall ? COMPARISON: Comparison is made with the prior CT of the abdomen and ?? pelvis dated 09/11/2022.. ? TECHNIQUE: CT scan of the chest, abdomen and pelvis was performed ?? following administration of 85 mL Omnipaque 350 using standard ?? departmental protocol. ?? Coronal and sagittal reformatted images were ?? generated and reviewed. ??Oral contrast material was not administered at ?? the request of the referring physician. ? This CT exam was performed with one or more of the following dose ?? reduction techniques: automated exposure control, adjustment of the mA ?? and/or kV according to patient size, use of iterative reconstruction ?? technique. ? DLP: 918 mGy-cm ? CHEST: ? THYROID: The thyroid is unremarkable. ? LUNGS: There is mild dependent atelectasis bilaterally. There is a tiny ?? nonspecific 2 mm nodule in the right upper lobe (series 6, image 31). ?? The lungs are otherwise clear. ? MEDIASTINUM: There is no mediastinal lymphadenopathy. ? HECTOR: There is no hilar lymphadenopathy. ? CARDIOVASCULATURE: The heart is enlarged. ??There is no pericardial ?? effusion. ??The thoracic aorta is normal in caliber. ? DEGREE OF CORONARY CALCIFICATION: ??not evaluable, due to dense contrast ?? in the coronary arteries ? PLEURA: ??There is no pleural effusion. ??No pneumothorax. ? MAIN AIRWAYS: The mainstem bronchi and proximal branches are patent. ? AXILLA: There is no axillary lymphadenopathy. ? SOFT TISSUES: ??Unremarkable. ? BONES: ??There is degenerative disc disease of the spine. ? ABDOMEN: ? LIVER: ??The liver is normal in size and contour. ??No liver mass is ?? identified. ??The hepatic and portal veins are patent. ? GALLBLADDER / BILE DUCTS: ??The gallbladder is unremarkable. There is no ?? intra or extrahepatic biliary ductal dilatation. ? SPLEEN: The spleen is normal in size. No focal splenic lesion is ?? identified. ? PANCREAS: The pancreas is unremarkable in appearance. ? ADRENAL GLANDS: Within normal limits. ? KIDNEYS/RETROPERITONEUM: No renal calculi are identified. There is no ?? hydronephrosis. ??No renal masses are identified. ? LYMPH NODES: ??No abdominal or pelvic lymphadenopathy. ? VASCULATURE: ??The abdominal aorta is normal in caliber. ? MESENTERY/PERITONEUM: No free fluid. No masses. ??There is no free ?? intraperitoneal gas. ? STOMACH: ??There is a small hiatal hernia. The remainder of the stomach ?? is collapsed. ? SMALL BOWEL: ?? The small bowel is normal in caliber. ? COLON: ??There is a large amount of stool throughout the colon. ? APPENDIX: ??Normal. ? URINARY BLADDER/PELVIC ORGANS: The urinary bladder is moderately ?? distended with an estimated volume of 600 mL. ??The patient is status ?? post hysterectomy. ? BONES / SOFT TISSUES: ??There is nondisplaced fractures of the left ?? transverse processes of L1, L2, and L3. ? CT/CT abdomen pelvis w IV con ?? IMPRESSION: ? 1. Nondisplaced fractures of the left transverse processes of L1, L2, ?? and L3. ? 2. No evidence of traumatic visceral injury to the chest, abdomen, or ?? pelvis. ? 3. Small hiatal hernia. Large amount of stool throughout the colon. ? Electronically signed by: ??Marc Hart MD ??06/21/2024 11:32 AM EDT ?? RP ? Dictated By: ?Marc Hart MD ? Signed By: ?<Electronically signed by Marc Hart MD in OV> ?06/21/24 1132 ? DD/ 1035 ? TD/TT: 06/21/24 1115 ? [employer]: ? Procedure Note Guille, Image - 06/21/2024 [facility] [address] [place] [address] CT Scan Report Signed Patient: Eveline Novoa MR#: [id number] : 4Acct:[id number] Age/Sex: 69 / FADM Date: 06/21/24 Loc: HO.ED Attending Dr: Ordering Physician: Ana Rehman DO Date of Service: 06/21/24 Procedure(s): CT abdomen pelvis w IV con Accession Number(s): [id number] cc: Diamond Ponce MD; Ana Rehman DO Report Number: [id number]: Total DLP = 598.94 mGy-cm EXAMINATION: CT CHEST WITH IV CONTRAST, CT ABDOMEN PELVIS WITH IV CONTRAST INDICATION: L rib pain post fall COMPARISON: Comparison is made with the prior CT of the abdomen and pelvis dated 09/11/2022.. TECHNIQUE: CT scan of the chest, abdomen and pelvis was performed following administration of 85 mL Omnipaque 350 using standard departmental protocol. Coronal and sagittal reformatted images were generated and reviewed. Oral contrast material was not administered at the request of the referring physician. This CT exam was performed with one or more of the following dose reduction techniques: automated exposure control, adjustment of the mA and/or kV according to patient size, use of iterative reconstruction technique. DLP: 918 mGy-cm CHEST: THYROID: The thyroid is unremarkable. LUNGS: There is mild dependent atelectasis bilaterally. There is a tiny nonspecific 2 mm nodule in the right upper lobe (series 6, image 31). The lungs are otherwise clear. MEDIASTINUM: There is no mediastinal lymphadenopathy. HECTOR: There is no hilar lymphadenopathy. CARDIOVASCULATURE: The heart is enlarged. There is no pericardial effusion. The thoracic aorta is normal in caliber. DEGREE OF CORONARY CALCIFICATION: not evaluable, due to dense contrast in the coronary arteries PLEURA: There is no pleural effusion. No pneumothorax. MAIN AIRWAYS: The mainstem bronchi and proximal branches are patent. AXILLA: There is no axillary lymphadenopathy. SOFT TISSUES: Unremarkable. BONES: There is degenerative disc disease of the spine. ABDOMEN: LIVER: The liver is normal in size and contour. No liver mass is identified. The hepatic and portal veins are patent. GALLBLADDER / BILE DUCTS: The gallbladder is unremarkable. There is no intra or extrahepatic biliary ductal dilatation. SPLEEN: The spleen is normal in size. No focal splenic lesion is identified. PANCREAS: The pancreas is unremarkable in appearance. ADRENAL GLANDS: Within normal limits. KIDNEYS/RETROPERITONEUM: No renal calculi are identified. There is no hydronephrosis. No renal masses are identified. LYMPH NODES: No abdominal or pelvic lymphadenopathy. VASCULATURE: The abdominal aorta is normal in caliber. MESENTERY/PERITONEUM: No free fluid. No masses. There is no free intraperitoneal gas. STOMACH: There is a small hiatal hernia. The remainder of the stomach is collapsed. SMALL BOWEL: The small bowel is normal in caliber. COLON: There is a large amount of stool throughout the colon. APPENDIX: Normal. URINARY BLADDER/PELVIC ORGANS: The urinary bladder is moderately distended with an estimated volume of 600 mL. The patient is status post hysterectomy. BONES / SOFT TISSUES: There is nondisplaced fractures of the left transverse processes of L1, L2, and L3. CT/CT abdomen pelvis w IV con IMPRESSION: 1. Nondisplaced fractures of the left transverse processes of L1, L2, and L3. 2. No evidence of traumatic visceral injury to the chest, abdomen, or pelvis. 3. Small hiatal hernia. Large amount of stool throughout the colon. Electronically signed by: Marc Hart MD 06/21/2024 11:32 AM EDT Dictated By: Marc Hart MD Signed By: <Electronically signed by Marc Hart MD in OV> 06/21/24 1132 DD/ 1035 TD/TT: 06/21/24 1115 [employer]: [facility] External Provider IMG CT PROCEDURES Final Result * CT Chest w/ Contrast (06/21/2024 10:35 AM EDT) Anatomical Region Laterality Modality Body, Chest Computed Tomogra phy 06/21/2024 10:3 5 AM EDT Narrative 06/21/2024 11:35 AM EDT ? [facility] ?[address] ?[place] [address] ? CT Scan Report ? Signed ? Patient: Nikolai De Nikhil,Eveline ? MR#: [id number] ? : 1955 ?Acct:[id number] ? Age/Sex: 69 / F ?ADM Date: 06/21/24 ? Loc: HO.ED ? Attending Dr: ? Ordering Physician: Ana Rehman DO ?? Date of Service: 06/21/24 ?? Procedure(s): CT chest w IV con ?? Accession Number(s): [id number] ? cc: Diamond Ponce MD; Ana Rehman DO ? Report Number: ?? [id number]: Total DLP = ??319.06 mGy-cm ?? EXAMINATION: ??CT CHEST WITH IV CONTRAST, CT ABDOMEN PELVIS WITH IV ?? CONTRAST ? INDICATION: L rib pain post fall ? COMPARISON: Comparison is made with the prior CT of the abdomen and ?? pelvis dated 09/11/2022.. ? TECHNIQUE: CT scan of the chest, abdomen and pelvis was performed ?? following administration of 85 mL Omnipaque 350 using standard ?? departmental protocol. ?? Coronal and sagittal reformatted images were ?? generated and reviewed. ??Oral contrast material was not administered at ?? the request of the referring physician. ? This CT exam was performed with one or more of the following dose ?? reduction techniques: automated exposure control, adjustment of the mA ?? and/or kV according to patient size, use of iterative reconstruction ?? technique. ? DLP: 918 mGy-cm ? CHEST: ? THYROID: The thyroid is unremarkable. ? LUNGS: There is mild dependent atelectasis bilaterally. There is a tiny ?? nonspecific 2 mm nodule in the right upper lobe (series 6, image 31). ?? The lungs are otherwise clear. ? MEDIASTINUM: There is no mediastinal lymphadenopathy. ? HECTOR: There is no hilar lymphadenopathy. ? CARDIOVASCULATURE: The heart is enlarged. ??There is no pericardial ?? effusion. ??The thoracic aorta is normal in caliber. ? DEGREE OF CORONARY CALCIFICATION: ??not evaluable, due to dense contrast ?? in the coronary arteries ? PLEURA: ??There is no pleural effusion. ??No pneumothorax. ? MAIN AIRWAYS: The mainstem bronchi and proximal branches are patent. ? AXILLA: There is no axillary lymphadenopathy. ? SOFT TISSUES: ??Unremarkable. ? BONES: ??There is degenerative disc disease of the spine. ? ABDOMEN: ? LIVER: ??The liver is normal in size and contour. ??No liver mass is ?? identified. ??The hepatic and portal veins are patent. ? GALLBLADDER / BILE DUCTS: ??The gallbladder is unremarkable. There is no ?? intra or extrahepatic biliary ductal dilatation. ? SPLEEN: The spleen is normal in size. No focal splenic lesion is ?? identified. ? PANCREAS: The pancreas is unremarkable in appearance. ? ADRENAL GLANDS: Within normal limits. ? KIDNEYS/RETROPERITONEUM: No renal calculi are identified. There is no ?? hydronephrosis. ??No renal masses are identified. ? LYMPH NODES: ??No abdominal or pelvic lymphadenopathy. ? VASCULATURE: ??The abdominal aorta is normal in caliber. ? MESENTERY/PERITONEUM: No free fluid. No masses. ??There is no free ?? intraperitoneal gas. ? STOMACH: ??There is a small hiatal hernia. The remainder of the stomach ?? is collapsed. ? SMALL BOWEL: ?? The small bowel is normal in caliber. ? COLON: ??There is a large amount of stool throughout the colon. ? APPENDIX: ??Normal. ? URINARY BLADDER/PELVIC ORGANS: The urinary bladder is moderately ?? distended with an estimated volume of 600 mL. ??The patient is status ?? post hysterectomy. ? BONES / SOFT TISSUES: ??There is nondisplaced fractures of the left ?? transverse processes of L1, L2, and L3. ? CT/CT chest w IV con ?? IMPRESSION: ? 1. Nondisplaced fractures of the left transverse processes of L1, L2, ?? and L3. ? 2. No evidence of traumatic visceral injury to the chest, abdomen, or ?? pelvis. ? 3. Small hiatal hernia. Large amount of stool throughout the colon. ? Electronically signed by: ??Marc Hart MD ??06/21/2024 11:32 AM EDT ?? RP ? Dictated By: ?Marc Hart MD ? Signed By: ?<Electronically signed by Marc Hart MD in OV> ?06/21/24 1132 ? DD/ 1035 ? TD/TT: 06/21/24 1115 ? [employer] M[employer] Gate: ? Procedure Note Donotmaria elenainterpreter, Image - 06/21/[address] [address] [address] Scan Report Signed Patient: Eveline Novoa MR#: [id number] : 1955cct:[id number] Age/Sex: 69 / FADM Date: 06/21/24 Loc: HO.ED Attending Dr: Ordering Physician: Ana Rehman DO Date of Service: 06/21/24 Procedure(s): CT chest w IV con Accession Number(s): [id number] cc: Diamond Ponce MD; Ana Rehman DO Report Number: [id number]: Total DLP = 319.06 mGy-cm EXAMINATION: CT CHEST WITH IV CONTRAST, CT ABDOMEN PELVIS WITH IV CONTRAST INDICATION: L rib pain post fall COMPARISON: Comparison is made with the prior CT of the abdomen and pelvis dated 09/11/2022.. TECHNIQUE: CT scan of the chest, abdomen and pelvis was performed following administration of 85 mL Omnipaque 350 using standard departmental protocol. Coronal and sagittal reformatted images were generated and reviewed. Oral contrast material was not administered at the request of the referring physician. This CT exam was performed with one or more of the following dose reduction techniques: automated exposure control, adjustment of the mA and/or kV according to patient size, use of iterative reconstruction technique. DLP: 918 mGy-cm CHEST: THYROID: The thyroid is unremarkable. LUNGS: There is mild dependent atelectasis bilaterally. There is a tiny nonspecific 2 mm nodule in the right upper lobe (series 6, image 31). The lungs are otherwise clear. MEDIASTINUM: There is no mediastinal lymphadenopathy. HECTOR: There is no hilar lymphadenopathy. CARDIOVASCULATURE: The heart is enlarged. There is no pericardial effusion. The thoracic aorta is normal in caliber. DEGREE OF CORONARY CALCIFICATION: not evaluable, due to dense contrast in the coronary arteries PLEURA: There is no pleural effusion. No pneumothorax. MAIN AIRWAYS: The mainstem bronchi and proximal branches are patent. AXILLA: There is no axillary lymphadenopathy. SOFT TISSUES: Unremarkable. BONES: There is degenerative disc disease of the spine. ABDOMEN: LIVER: The liver is normal in size and contour. No liver mass is identified. The hepatic and portal veins are patent. GALLBLADDER / BILE DUCTS: The gallbladder is unremarkable. There is no intra or extrahepatic biliary ductal dilatation. SPLEEN: The spleen is normal in size. No focal splenic lesion is identified. PANCREAS: The pancreas is unremarkable in appearance. ADRENAL GLANDS: Within normal limits. KIDNEYS/RETROPERITONEUM: No renal calculi are identified. There is no hydronephrosis. No renal masses are identified. LYMPH NODES: No abdominal or pelvic lymphadenopathy. VASCULATURE: The abdominal aorta is normal in caliber. MESENTERY/PERITONEUM: No free fluid. No masses. There is no free intraperitoneal gas. STOMACH: There is a small hiatal hernia. The remainder of the stomach is collapsed. SMALL BOWEL: The small bowel is normal in caliber. COLON: There is a large amount of stool throughout the colon. APPENDIX: Normal. URINARY BLADDER/PELVIC ORGANS: The urinary bladder is moderately distended with an estimated volume of 600 mL. The patient is status post hysterectomy. BONES / SOFT TISSUES: There is nondisplaced fractures of the left transverse processes of L1, L2, and L3. CT/CT chest w IV con IMPRESSION: 1. Nondisplaced fractures of the left transverse processes of L1, L2, and L3. 2. No evidence of traumatic visceral injury to the chest, abdomen, or pelvis. 3. Small hiatal hernia. Large amount of stool throughout the colon. Electronically signed by: Marc Hart MD 06/21/2024 11:32 AM EDT Dictated By: Marc Hart MD Signed By: <Electronically signed by Marc Hart MD in OV> 06/21/24 1132 DD/ 1035 TD/TT: 06/21/24 1115 Assembler Wire Mesh Gate: [facility] External Provider IMG CT PROCEDURES Final Result * CT Cervical Spine w/o Contrast (06/21/2024 10:27 AM EDT) Anatomical Region Laterality Modality Spine, C-spine Computed Tomogra phy 06/21/2024 10:2 7 AM EDT Narrative 06/21/2024 11:31 AM EDT ? [facility] ?[address] ?[place] [address] ? CT Scan Report ? Signed ? Patient: Nikolai De Nikhil,Eveline ? MR#: [id number] ? : 1955 ?Acct:[id number] ? Age/Sex: 69 / F ?ADM Date: 06/21/24 ? Loc: HO.ED ? Attending Dr: ? Ordering Physician: Ana Rehman DO ?? Date of Service: 06/21/24 ?? Procedure(s): CT cervical spine wo IV con ?? Accession Number(s): [id number] ? cc: Diamond Ponce MD; Ana Rehman DO ? Report Number: ?? [id number]: Total DLP = ??436.45 mGy-cm ?? EXAMINATION: ?? CT CERVICAL SPINE WITHOUT CONTRAST ? CLINICAL INFORMATION: ?? Fall, neck pain. ? COMPARISON: ?? 10/02/2019. ? TECHNIQUE: ?? Spiral CT imaging of the cervical spine performed in axial plane ?? without contrast. Multiplanar reformatted images were constructed from ?? the axial data set. ? This CT examination was performed using dose optimization techniques as ?? appropriate, variously including the following: ?? *Automated exposure control ?? *Adjustment of mA and/or kV according to patient size (this includes ?? techniques or standardized protocols for targeted exams where dose is ?? matched to indication/reason for exam; i.e. extremities or head) ?? *Use of iterative reconstruction technique ? FINDINGS: ?? CORONAL ALIGNMENT: ?? -Normal. ? SAGITTAL ALIGNMENT: ?? -Minimal straightening of the normal lordosis, nonspecific. ?? -No traumatic subluxation. ?? -Trace degenerative retrolisthesis of C3 on C4. ? C1-C2 AND CRANIOCERVICAL JUNCTION: ?? -Intact and normally aligned. ? VERTEBRAL BODIES AND FACETS: ?? -No fracture, compression deformity, or suspicious bone lesion. ?? -Normal facet alignment without subluxation. ? DISCS: ?? -Moderate disc degeneration present C3-4, and C5-6. ? CENTRAL CANAL: ?? -No evidence of high-grade central canal narrowing or large disc ?? herniation allowing for modality limitations. ? PREVERTEBRAL AND PARAVERTEBRAL SOFT TISSUES: ?? -Normal without fluid collection or soft tissue swelling. ?? -Retropharyngeal course of the left ICA. ?? -Normal thyroid. ? LUNG APICES: ?? -Clear bilaterally. ? CT/CT cervical spine wo IV con ?? IMPRESSION: ?? 1. No CT evidence of acute cervical spine fracture or injury. ? 2. Degenerative disc changes, moderate at C3-4 and C5-6. ? Electronically signed by: ??Charles Hilliard MD ??06/21/2024 11:28 AM EDT RP ? Dictated By: ?Charles Hilliard MD ? Signed By: ?<Electronically signed by Charles Hilliard MD in OV> ?06/21/24 1128 ? DD/ 1027 ? TD/TT: 06/21/24 1115 ? [employer] M[employer] Gate: ? Procedure Note Cara Han - 06/21/[address] [address] [address] Scan Report Signed Patient: Eveline Novoa MR#: [id number] : 4Acct:[id number] Age/Sex: 69 / FADM Date: 06/21/24 Loc: HO.ED Attending Dr: Ordering Physician: Ana Rehman DO Date of Service: 06/21/24 Procedure(s): CT cervical spine wo IV con Accession Number(s): [id number] cc: Diamond Ponce MD; Ana Rehman DO Report Number: [id number]: Total DLP = 436.45 mGy-cm EXAMINATION: CT CERVICAL SPINE WITHOUT CONTRAST CLINICAL INFORMATION: Fall, neck pain. COMPARISON: 10/02/2019. TECHNIQUE: Spiral CT imaging of the cervical spine performed in axial plane without contrast. Multiplanar reformatted images were constructed from the axial data set. This CT examination was performed using dose optimization techniques as appropriate, variously including the following: *Automated exposure control *Adjustment of mA and/or kV according to patient size (this includes techniques or standardized protocols for targeted exams where dose is matched to indication/reason for exam; i.e. extremities or head) *Use of iterative reconstruction technique FINDINGS: CORONAL ALIGNMENT: -Normal. SAGITTAL ALIGNMENT: -Minimal straightening of the normal lordosis, nonspecific. -No traumatic subluxation. -Trace degenerative retrolisthesis of C3 on C4. C1-C2 AND CRANIOCERVICAL JUNCTION: -Intact and normally aligned. VERTEBRAL BODIES AND FACETS: -No fracture, compression deformity, or suspicious bone lesion. -Normal facet alignment without subluxation. DISCS: -Moderate disc degeneration present C3-4, and C5-6. CENTRAL CANAL: -No evidence of high-grade central canal narrowing or large disc herniation allowing for modality limitations. PREVERTEBRAL AND PARAVERTEBRAL SOFT TISSUES: -Normal without fluid collection or soft tissue swelling. -Retropharyngeal course of the left ICA. -Normal thyroid. LUNG APICES: -Clear bilaterally. CT/CT cervical spine wo IV con IMPRESSION: 1. No CT evidence of acute cervical spine fracture or injury. 2. Degenerative disc changes, moderate at C3-4 and C5-6. Electronically signed by: Charles Hilliard MD 06/21/2024 11:28 AM EDT RP Dictated By: Charles Hilliard MD Signed By: <Electronically signed by Charles Hilliard MD in OV> 06/21/24 1128 DD/ 1027 TD/TT: 06/21/24 1115 As[employer]er [employer] M[employer] Gate: [facility] External Provider IMG CT PROCEDURES Final Result * CT Head w/o Contrast (06/21/2024 10:27 AM EDT) Anatomical Region Laterality Modality Head, Neck Computed Tomogra phy 06/21/2024 10:2 7 AM EDT Narrative 06/21/2024 11:30 AM EDT ? [facility] ?[address] ?[place] [address] ? CT Scan Report ? Signed ? Patient: Nikolai Do,Eveline ? MR#: [id number] ? : 1955 ?Acct:[id number] ? Age/Sex: 69 / F ?ADM Date: 06/21/24 ? Loc: HO.ED ? Attending Dr: ? Ordering Physician: Ana Rehman DO ?? Date of Service: 06/21/24 ?? Procedure(s): CT head/brain wo IV con ?? Accession Number(s): [id number] ? cc: Diamond Ponce MD; Ana Rehman DO ? Report Number: ?? [id number]: Total DLP = ??745.55 mGy-cm ?? EXAMINATION: ?? CT HEAD WITHOUT CONTRAST ? CLINICAL INFORMATION: ?? s/p fall down stairs and head strike ? COMPARISON: ?? September 11, 2022. ? TECHNIQUE: ?? Contiguous axial imaging was performed from the skull base to vertex ?? without intravenous administration of contrast. ? This CT examination was performed using dose optimization techniques as ?? appropriate, variously including the following: ?? *Automated exposure control ?? *Adjustment of mA and/or kV according to patient size (this includes ?? techniques or standardized protocols for targeted exams where dose is ?? matched to indication/reason for exam; i.e. extremities or head) ?? *Use of iterative reconstruction technique ? DLP: ?? 713.66 mGy-cm ? FINDINGS: ?? Bony calvarium is intact. ?? Skull base is intact. ?? No acute intracranial hemorrhage, mass effect, midline shift, ?? hydrocephalus or herniation. ?? Iyer-white matter differentiation is normal. ?? Sellar/suprasellar region demonstrated no gross masses. ?? Craniocervical junction demonstrates a 6 mm descensus of the cerebellar ?? tonsils below foramen magnum. ?? Bilateral multifocal patchy and confluent deep periventricular white ?? matter hypodensities involving centrum semiovale and carrion radiata. ?? Old lacunar infarcts, basal ganglia. ?? No gross hematoma, intraconal or extraconal compartments of the orbits. ? CT/CT head/brain wo IV con ?? IMPRESSION: ?? No acute fracture, bony calvarium. ?? No acute intracranial hemorrhage. ?? White matter disease likely related to small vessel occlusive disease. ?? Low-lying cerebellar tonsils. ? Electronically signed by: ??Lamonte Curtis MD ??06/21/2024 11:28 AM ?? EDT RP ? Dictated By: ?Lamonte Sharp MD ? Signed By: ?<Electronically signed by Lamonte Montero MD in OV> ? 06/21/24 1128 ? DD/ 1027 ? TD/TT: 06/21/24 1115 ? As[employer] M[employer] Gate: ? Procedure Note Donamritater, Image - 06/21/[address] [place] [address] [address] Scan Report Signed Patient: Eveline Novoa MR#: [id number] : 1955cct:[id number] Age/Sex: 69 / FADM Date: 06/21/24 Loc: HO.ED Attending Dr: Ordering Physician: Ana Rehman DO Date of Service: 06/21/24 Procedure(s): CT head/brain wo IV con Accession Number(s): [id number] cc: Diamond Ponce MD; Ana Rehman DO Report Number: [id number]: Total DLP = 745.55 mGy-cm EXAMINATION: CT HEAD WITHOUT CONTRAST CLINICAL INFORMATION: s/p fall down stairs and head strike COMPARISON: September 11, 2022. TECHNIQUE: Contiguous axial imaging was performed from the skull base to vertex without intravenous administration of contrast. This CT examination was performed using dose optimization techniques as appropriate, variously including the following: *Automated exposure control *Adjustment of mA and/or kV according to patient size (this includes techniques or standardized protocols for targeted exams where dose is matched to indication/reason for exam; i.e. extremities or head) *Use of iterative reconstruction technique DLP: 713.66 mGy-cm FINDINGS: Bony calvarium is intact. Skull base is intact. No acute intracranial hemorrhage, mass effect, midline shift, hydrocephalus or herniation. Iyer-white matter differentiation is normal. Sellar/suprasellar region demonstrated no gross masses. Craniocervical junction demonstrates a 6 mm descensus of the cerebellar tonsils below foramen magnum. Bilateral multifocal patchy and confluent deep periventricular white matter hypodensities involving centrum semiovale and carrion radiata. Old lacunar infarcts, basal ganglia. No gross hematoma, intraconal or extraconal compartments of the orbits. CT/CT head/brain wo IV con IMPRESSION: No acute fracture, bony calvarium. No acute intracranial hemorrhage. White matter disease likely related to small vessel occlusive disease. Low-lying cerebellar tonsils. Electronically signed by: Lamonte Curtis MD 06/21/2024 11:28 AM EDT RP Dictated By: Lamonte Sharp MD Signed By: <Electronically signed by Lamonte Montero MDin OV> 06/21/24 1128 DD/ 1027 TD/TT: 06/21/24 1115 Assembler Wire Mesh Gate: [facility] External Provider IMG CT PROCEDURES Final Result * Magnesium (06/21/2024 9:52 AM EDT) Magnesium 2.2 1.6 - 2.6 mg/dL LABS 06/21/2024 9:52 AM EDT 06/21/2024 9:53 AM EDT Generic External Data Provider LAB BLOOD ORDERAB LES Final Result LABS [address] [place] [phone] * Lipase (06/21/2024 9:52 AM EDT) Only the most recent of2 resultswithin the time period is included. Lipase 26 8 - 78 U/L [facility] LABS 06/21/2024 9:52 AM EDT 06/21/2024 9:53 AM EDT Generic External Data Provider LAB BLOOD ORDERAB LES Final Result Performing Organization Address [facility] de Phone Number LABS [address] [place] [phone] * Hepatic Function Panel (06/21/2024 9:52 AM EDT) Only the most recent of2 resultswithin the time period is included. [facility] Bilirubin, Total 0.6 0.0 - 1.0 mg/dL LABS Bilirubin, Direct 0.1 0.0 - 0.5 mg/dL LABS Aspartate Amino Transferase 25 5 - 31 U/L LABS Alanine Aminotransferase 13 0 - 31 U/L LABS Total Protein 6.7 6.5 - 8.0 g/dL LABS Albumin Level 3.7 3.5 - 5.0 g/dL LABS Alkaline Phosphatase 64 39 - 117 U/L LABS 06/21/2024 9:52 AM EDT 06/21/2024 9:53 AM EDT Generic External Data Provider LAB BLOOD ORDERAB LES Final Result Performing Organization Address [facility] de Phone Number LABS [address] [place] [phone] * (ABNORMAL) Basic Metabolic Panel (06/21/2024 9:52 AM EDT) Pathologist [facility] Sodium 140 135 - 145 mmol/L LABS Potassium 4.2 3.3 - 5.1 mmol/L LABS Chloride 109(H) 96 - 108 mmol/L LABS Carbon Dioxide 24 22 - 29 mmol/L LABS Anion Gap 11(L) 12 - 20 LABS Urea Nitrogen (BUN) 16 9 - 16 mg/dL LABS Creatinine, Serum 0.76 0.5 - 1.4 mg/dL LABS Creatinine Clr Calc Pharmacy 57.4 LABS Comment:Provided height and weight: 149.86 cm,67.132 kg.eGFR (calculated from the MDRD study equation) and eCrCl(calculated from the Cockcroft-Gault equation) are based ondifferent parameters and may not yield comparable results.If eCrCl result is absurd, please check patient'sheight/weight. Estimated Glomerular Filt Rate >60 LABS Comment:Chronic Kidney Disea se: Estimated GFR < 60 mL/min/1.54p2Ksvcoe Kidney Disease: Estimated GFR < 15 mL/min/1.73m2 Glucose 95 60 - 115 mg/dL LABS Calcium 9.0 8.4 - 10.2 mg/dL LABS 06/21/2024 9:52 AM EDT 06/21/2024 9:53 AM EDT us Generic External Data Provider LAB BLOOD ORDERAB LES Final Result LABS [address] [place] [phone] * (ABNORMAL) CBC auto differential (06/21/2024 8:55 AM EDT) White Blood Count 5.1 4.8 - 10.8 X10*3/uL LABS Red Blood Count 4.40 4.20 - 5.50 X10*6/uL LABS Hemoglobin 14.0 12.0 - 16.0 g/dl LABS Hematocrit 42.6 37.0 - 47.0 % LABS Mean Corpuscular Volume 96.8 80.0 - 98.0 fL LABS Mean Corpuscular Hemoglobin 31.8 27.0 - 33.0 pg LABS Mean Corpuscular HGB Conc 32.9 31.0 - 35.0 g/dl LABS Red Cell Distribution Width 11.9 11.0 - 16.0 % LABS Platelet Count 281 160 - 400 X10*3/uL LABS Mean Platelet Volume 9.4 9.4 - 12.3 fL LABS Neutrophils Percent Auto 71.9 45 - 73 % LABS Imm Gran Pct Auto 0.4 0.0 - 0.4 % LABS Lymphocytes Percent Auto 16.7(L) 20 - 40 % LABS Monocytes Percent Auto 7.5 2 - 11 % LABS Eosinophils Percent Auto 3.1 0 - 4 % LABS Basophils Percent Auto 0.4 0 - 2 % LABS NRBC Pct Auto 0.0 0.0 - 0.2 /100WBC LABS Neutrophils Absolute Auto 3.7 2.0 - 8.3 x10*3/uL LABS Imm Gran Abs Auto 0.02 0.00 - 0.03 X10*3/uL LABS Lymphocytes Absolute Auto 0.9(L) 1.2 - 4.9 X10*3/uL LABS Monocytes Absolute Auto 0.4 0.1 - 1.2 X10*3/uL LABS Eosinophils Absolute Auto 0.2 0.0 - 0.4 X10*3/uL LABS Basophils Absolute Auto 0.0 0.0 - 0.2 X10*3/uL LABS NRBC Abs Auto 0.000 0.0 - 0.012 X10*3/uL LABS 06/21/2024 8:55 AM EDT 06/21/2024 9:02 AM EDT us Generic External Data Provider LAB BLOOD ORDERAB LES Final Result LABS [address] [place] [phone] * Culture, Urine, Routine (06/21/2024 12:00 AM EDT) Urine Urine specimen obtained by clean catch procedure / Unknown 06/21/2024 06/21/2024 Comment:UACC Narrative LABS - 06/22/2024 8:40 AM EDT Urine Culture Report Result Urine Culture < 10,000 cfu/ml Specimen Source: Urine clean catch us Generic External Data Provider LAB MICROBIOLOGY - GENERAL ORDERABLES Final Result Performing Organization Address [facility]/ZIP Co de Phone Number LABS [address] [place] [phone] * POCT Glucose (06/15/2024 1:40 PM EDT) Glucose Blood, POC 107 60 - 200 mg/dL QC Media Lot # [id number] Lot# Expiration Date Blood Capillary blood specimen / Unknown 06/15/2024 1:40 PM EDT Diamond Lepe MD POINT OF CARE TEST EN TER/EDIT ORDERABLES Final Result * Amylase (05/25/2024 1:51 PM EST) Amylase 77 28 - 100 U/L LABS Blood Venous blood specimen / Unknown 05/25/2024 1:51 PM EST 05/25/2024 4:03 PM EST Clara RHODES LAB BLOOD ORDERABLES Final Resul t Performing Organization Address [facility] Co de Phone Number LABS [address] [place] [phone] * US Abdomen Complete (05/07/2024 4:28 PM EST) Anatomical Region Laterality Modality Abdomen Ultrasound 05/07/2024 4:28 PM EST Narrative 05/07/2024 4:29 PM EST ? [facility] [facility] ?[address] ?[place] [address] ? Ultrasound Report ? Signed ? Patient: Nikolai De Nikhil,Eveline ? MR#: [id number] ? : 1955 ?Acct:[id number] ? Age/Sex: 69 / F ?ADM Date: 05/07/24 ? Loc: HO.US ? Attending Dr: Clara Hightower NP ? Ordering Physician: CLARA HIGHTOWER NP ?? Date of Service: 05/07/24 ?? Procedure(s): US abdomen complete ?? Accession Number(s): [id number] ? cc: Diamond Ponce MD; CLARA HIGHTOWER [...] document has been electronically signed by: Katalina Coto, DO on ?? 05/07/2024 16:28:31 ? Dictated By: ?Katalina Coto MD ? Signed By: ?<Electronically signed by Katalina Coto MD in OV> ?05/07/241627 ? DD/ 27 ? TD/TT: 05/07/241627 ? [employer] Gate: ? Procedure Note Cara Han - 05/07/[address] [address] Ultrasound Report Signed Patient: Eveline Novoa MR#: [id number] : 4Acct:[id number] Age/Sex: 69 / FADM Date: 05/07/24 Loc: HO.US Attending Dr: Clara Hightower NP Ordering Physician: CLARA HIGHTOWER NP Date of Service: 05/07/24 Procedure(s): US abdomen complete Accession Number(s): [id number] cc: Diamond Ponce MD; CLARA HIGHTOWER NP [...] 05/07/24 1628 DD/ 1628 TD/TT: 05/07/24 1628 As[employer] M[employer] Gate: us Clara Hightower ANP IMG US PROCEDURES Edited Result - Final * XR Chest 2 Views (05/06/2024 2:09 PM EST) Anatomical Region Laterality Modality Chest Radiographic Nicky ging 05/06/2024 2:09 PM EST Narrative 05/06/2024 2:52 PM EST ?[facility] ?[address] ?[place] [address] ?XRay Report ? Signed ? Patient: Nikolai De Nikhil,Eveline ? MR#: [id number] ? : 1955 ?Acct:[id number] ? Age/Sex: 69 / F ?ADM Date: 02/13/25 ? Loc: HO.HHCX ? Attending Dr: Doris Dugan DO ? Ordering Physician: Doris Dugan DO ?? Date of Service: 05/06/24 ?? Procedure(s): XR chest 2V ?? Accession Number(s): [id number] ? cc: Doris Dugan DO ? EXAMINATION: [...] DD/ 1409 ? TD/TT: 05/06/24 1420 ? [employer] Gate: ? Procedure Note Elysiater, Image - 05/06/[address] [address] XRay Report Signed Patient: Eveline Novoa MR#: [id number] : 4Acct:[id number] Age/Sex: 69 / FADM Date: 05/06/24 Loc: HO.HHCX Attending Dr: Doris Dugan DO Ordering Physician: Doris Dugan DO Date of Service: 05/06/24 Procedure(s): XR chest 2V Accession Number(s): [id number] cc: Doris Dugan DO EXAMINATION: XR CHEST [...] 05/06/24 1449 DD/ 1409 TD/TT: 05/06/24 1420 Assembler [employer] M[employer] Gate: Doris Dugan DO IMG XR PROCEDURES Final Resu lt * Influenza B (ID NOW Rapid Molecular) (05/06/2024 1:46 PM EST) Influenza B Negative Negative, Indeterminate LABS Swab 05/06/2024 1:46 PM EST Doris Dugan DO POINT OF CARE TEST ENTER/TAI T ORDERABLES Final Result Performing Organization Address [facility] Co de Phone Number LABS [address] [place] [phone] * (ABNORMAL) Influenza A (ID NOW Rapid Molecular) (05/06/2024 1:46 PM EST) Influenza A Positive( A) Negative, Indeterminate LABS Swab 05/06/2024 1:46 PM EST Doris Dugan DO POINT OF CARE TEST ENTER/TAI T ORDERABLES Final Result Performing Organization Address [facility] Co de Phone Number LABS [address] [place] [phone] * POCT Rapid COVID Ag (05/06/2024 1:46 PM EST) Pathologist [facility] Rapid COVID Ag Negative [facility] LABS Swab 05/06/2024 1:46 PM EST Doris Dugan DO POINT OF CARE TEST ENTER/TAI T ORDERABLES Final Result Performing Organization Address [facility] Co de Phone Number LABS [address] [place] [phone] * POCT rapid strep A manually resulted (05/06/2024 1:46 PM EST) [facility] Rapid Strep A Screen Negative Negative, None Detected LABS Swab 05/06/2024 1:46 PM EST Doris Dugan DO POINT OF CARE TEST ENTER/TAI T ORDERABLES Final Result Performing Organization Address [facility] Co sd Phone Number LABS [address] [place] [phone] * (ABNORMAL) Biopsy vaginal (05/04/2024 12:00 AM EST) Historical Provider IN CLINIC/BEDSIDE ORDERAB LES Final Result Performing Organization Address [facility] Co de Phone Number [facility] * ECG 12 lead (04/19/2024 2:39 PM EST) Narrative Name, MD Elvis - 04/19/2024 2:39 PM EST Normal sinus rhythm. ??Heart rate of 73. ??No ST segment elevation or depression. ??Q waves in lead III and no change from her baseline us Elvis Name ECG ORDERABLES Final Result * Albumin, Random Urine W/Creatinine (03/03/2024 7:57 AM EST) [facility] Creatinine, Urine 57.95 mg/dL [facility] LABS Microalbumin Urine <5.0 mg/L [facility] LABS Microalbum Creatinine Ratio Ur TNP <30 ug/mg cr LABS Comment:Unable to calculate albumin/creatinine ratio due to lowmicroalbumin or creatinine result. Urine (Urine, Random) 03/03/2024 7:57 AM EST 03/03/2024 11:16 AM EST us Diamond Lepe MD LAB URINE ORDERABLES Final Result Performing Organization Address [facility]/ZIP Co de Phone Number LABS [address] [place] [phone] * Hepatitis C Antibody with Reflex to HCV, RNA, Quantitative, Real-Time PCR (03/03/2024 7:57 AM EST) Hepatitis C Antibody Nonreactive Nonreactive LABS Comment:Antibodies to HCV no t detected; does not exclude early acuteHCV infection. Blood Venous blood specimen / Unknown 03/03/2024 7:57 AM EST 03/03/2024 11:18 AM EST us Diamond Lepe MD LAB BLOOD ORDERABLES Final Result Performing Organization Address [facility] Co de Phone Number LABS [address] [place] [phone] * (ABNORMAL) Hemoglobin A1c (03/03/2024 7:57 AM EST) Hemoglobin A1c 6.4(H) <6.0 % [facility] LABS Comment:Hemoglobin A1C Refer ence Range Adults: 4.8 - 6.0 % Non diabetic: < 6.0 % Goal: < 7.0 %Additional Action Suggested: > 8.0 %Note: Hemoglobin A1c results are invalid for patients with abnormal amounts of HbF. Blood transfusions may impact the HbA1c concentration in the patient sample. Estimated Average Glucose 137 mg/dL LABS Comment:eAG = Estimated ave rage glucose which is %A1C expressed asaverage glucose, using the formula of the E9P-UuczswuBtwdety Glucose study (ADAG), Diabetes Care, Vol.31,#8,Oct. 2007 Blood Venous blood specimen / Unknown 03/03/2024 7:57 AM EST 03/03/2024 11:17 AM EST us Diamond Lepe MD LAB BLOOD ORDERABLES Final Result Performing Organization Address [facility] Co de Phone Number LABS [address] [place] [phone] * (ABNORMAL) Lipid Panel, Standard (03/03/2024 7:57 AM EST) Triglycerides 73 <150 mg/dL [facility] LABS Comment:Desirable Triglyceri de: less than 150 mg/dLBorderline High Triglyceride 150-199 mg/dLHigh Triglyceride: 200-499 mg/dLVery High Triglyceride: greater than or equal to 5OO mg/dL Cholesterol 242(H) <200 mg/dL LABS Comment:Desirable Cholestero l: less than 200 mg/dLBorderline High Cholesterol: 200-239 mg/dLHigh Cholesterol: greater than 239 mg/dL LDL Cholesterol Calculated 167(H) <100 mg/dL LABS Comment:Desirable LDL: less than 100 mg/dLNear Optimal/Above Optimal LDL: 110- 129 mg/dLBorderline High LDL: 130-159 mg/dLHigh LDL: 160-189 mg/dLVery High LDL: greater than or equal to 190 mg/dL HDL Cholesterol 61 >40 mg/dL [facility] LABS Comment:Desirable HDL: great er than 40 mg/dL Note: This HDL assay may give artificially low results in patients with liver disease. Blood Venous blood specimen / Unknown 03/03/2024 7:57 AM EST 03/03/2024 11:18 AM EST us Diamond Lepe MD LAB BLOOD ORDERABLES Final Result Performing Organization Address City/[facility]/ZIP Co de Phone Number LABS [address] [place] [phone] * BI Mammogram Screening Tomosynthesis Bilateral (07/14/2023 1:53 PM EDT) Anatomical Region Laterality Modality Breast Bilateral Mammography 07/14/2023 1:53 PM EDT Narrative 08/11/2023 5:10 AM EDT ? [facility] ? [address] ?[place], [place] [address] ? Mammography Report ? Signed ? Patient: Nikolai De Nikhil,Eveline ? MR#: [id number] ? : 1955 ?Acct:[id number] ? Age/Sex: 68 / F ?ADM Date: 07/14/23 ? Loc: HO.MAMMO ? Attending Dr: Diamond Lepe MD ? Ordering Physician: Diamond Ponce MD ?Results: ?? 1Negative ? Date of Service: 07/14/23 ?Follow Up: 1 Year From Orig ?? inal Mammogram ? Procedure(s): MM tomosynthesis screening BI ?? Accession Number(s): [id number] ? cc: Diamond Ponce MD ? EXAMINATION: [...] 08/11/237 ? DD/ 1353 ? TD/TT: ? Assembler Wire Mesh Gate: ? Procedure Note Guille, Image - 08/11/2023 [place] [facility] [address] [place] [address] Mammography Report Signed Patient: Eveline Novoa MR#: [id number] : 4Acct:[id number] Age/Sex: 68 / FADM Date: 07/14/23 Loc: HO.MAMMO Attending Dr: Diamond Lepe MD Ordering Physician: Diamond Ponce MDResults: 1Negative Date of Service: 07/14/23Follow Up: 1 Year From Orig inal Mammogram Procedure(s): MM tomosynthesis screening BI Accession Number(s): [id number] cc: Diamond Ponce MD EXAMINATION: MM SCREENING [...] by Frannie Davis MD in OV> 08/11/23 0502 DD/ 1353 TD/TT: Assembler Wire Mesh Gate: Diamond Lepe MD IMG BI PROCEDURES Tai ta Result - Final * (ABNORMAL) HPV mRNA E6/E7 (12/02/2018 3:30 PM EDT) HPV mRNA E6/E7 DETECTED (AA) NOT DETECTED [facility] Comment: This test was performed using the APTIMA(R) HPV Assay ([employer] This assay detects E6/E7 viral messenger RNA (mRNA) from 14 high-risk HPV types (16,18,31,33,35,39,45,51, 52,56,58,59,66,68). For additional information please refer to: http://education.[employer]/faq/TJP435w9 (This link is being provided for informational/ educational purposes only.) The analytical performance characteristics of this assay have been determined by [employer] [place], [place]. The modifications have not been cleared or approved by the FDA. This assay has been validated pursuant to the CLIA regulations and is used for clinical purposes. Test Performed by [facility], [employer] [facility] [place], [address] [place] [address] Justyn Nettles M.D., Ph.D., Director of Laboratories , CLIA [id number] Please note: ??Effective 12/04/2015, HPV testing will be performed using [employer]'s APTIMA test which targets mRNA. Detecting mRNA instead of DNA, as in older methods, offers significant improvements in specificity. 12/02/2018 3:30 PM EDT Leonarda Mancera CNM HISTORICAL/NON ORDERABLE LABS Final Result [facility] [place] [address], * Hm Colonoscopy (06/16/2013) Historical Provider MD HEALTH MAINTENANCE Final Result from Last 3 Months or Most Recently Relevant to Health Maintenance [place] [address] - [place] [address] [place] [phone] DENTAL - [facility] Care Teams General Adjuster Relationship Specialty Start Date End Date Diamond Ponce MD [address] [place] [address] PCP - General Family Medicine 07/01/19
--- OUTSIDE RECORDS SUMMARY | 2024-06-29 15:51 | XMS_ITS | Continuity of Care Document ---
Author Organization [employer] Address [address] [place] [address] Assessment Encounter Date Assessment Date Assessment LastModified by Organization Details LastModified Time 06/24/2024 06/24/2024 I have reviewed and agree with the assessment and plan as documented by the bow machine operator. I provided real time medical direction for this encounter and was immediately available to provide additional phone based assistance as needed. History as noted by bow machine operator. Pt with history of chronic pain, dementia, HTN, HLD, DM2, LBP w/sciatica. Pt speaks only serbian, history and evaluation done with bow machine operator with help of pig machine crane operator. Recent urgent care visit note from 06/23 [...] Orders ibuprofen 600 mg tablet 2024 025 [facility], [address] [place] [address], [id number], 10:34:32 lidocaine 4 % topical patch 2024 025 [facility], [address] [place] [address], [id number], 15:49:38 ketorolac 60 mg/2 mL intramuscul ar solution 2024 025 btils Not available 14:33:58 Patient TargetsNo targets recorded. Patient InstructionsNo instructions recorded. Reason for Referral None Reported. Medical Equipment None Reported. Allergies Allergen ID Allergen Name Allergen Category Reaction Reaction Severity Criticality Documentation Date Start Date Code Code System Note Provider Name and Address Organization Details Recorded Time 90932 morphine medicatio n Not available Not available Not available 06/24/2024 7052 RxNorm Not Available [facility] - production 10:43:27 98496 tramadol medicatio n Not available Not available Not available 06/24/2024 99022 RxNorm Not Available [employer] - production 10:43:27 [...] SNOMED-CT Code Diagnosis ICD10 Code Diagnosis Note 26915 Efren Johnston MD Main - [facility] [address] [place] [phone] 06/24/2024 14:19:25 06/24/2024 15:40:43 Closed fracture lumbar vertebra 789039320 S32.008D Health Concerns Section Related Observation LastModified by Organization Detai ls LastModified Time None Recorded Concern Status LastModified by Organization Details LastModified Time None Recorded Payers Encounter Date Sequence Insurance Name Policy Number Policy Bae Covered Member ID Bae Member ID Guarantor Name 06/24/2024 1 [facility] - DOS ON OR AFTER 2022 - DUAL ELIGIBLE - LONG TERM OPTIONS AND ONE CARE (MEDICARE REPLACEMENT/AD VANTAGE - HMO) Eveline Herrera [id number] Eveline Herrera Notes Date Note Type Note Provider Name and Address Organization Details Recorded Time 06/24/2024 text/html This was a supervised home visit with bow machine operator Rishi Heard. HPI: She fell on 06/21 [...] ................... ................... ................... ................... ................... ................... ........ [facility] Nurse Triage Notes (Cecy Rios): Reason For Request: Pain in her back Chief Complaints: Back Pain PMH: Osteoporosis, Diabetes Mellitus Type 2 PMH Reviewed at 06/24/2024 10:43 Allergies Reviewed at 06/24/2024 10:43 ................... ................... ................... ................... ................... ................... ................... ........ Residential Door Installer Note From Rishi Heard: SC6 dispatched to [...] 15. Lung sounds clear in all morales. [facility] noted patient is Italian speaking only and daughter translated for [facility]. Patient reports that she had [...] urinating. Patient vital signs obtained as noted. [facility] consulted, provided orders for 30mg Toradol IM and advised that he would send prescription for Ibuprofen and Lidocaine patch to patient preferred pharmacy. 30mg Toradol IM administered in left deltoid without incident, patient rights verified. Red flags discussed with patient and advised to call 911 if condition worsens. SC6 clear. [facility] Medication Orders: ketorolac 60 mg/2 mL intramuscular solution: Administered ................... ................... ................... ................... ................... ................... ................... ........ [facility] Consulted: Efren Johnston ................... ................... ................... ................... ................... ................... ................... ........ Disposition: Fulfilled Efren Johnston MD [address] [facility],[address], [place], [phone], FREDA CARMONA 06/24/2024 15:32:16 OBGyn Episode No OBEpisode recorded.
--- OUTSIDE RECORDS SUMMARY | 2024-06-29 15:52 | XMS_ITS | Encounter Summary ---
Author Organization [facility] Address [address] [facility] 7t [place] [address] Care Team Providers Care Commercial Cleaner Name Role Phone Diamond Ponce MD Primary Care Provide r Encounter Details Date Type Department Care Team (Late st Contact Info) Description 06/29/2024 Orders Only [facility] MED & PEDS [address] [place], [place] [phone] Carla Mckeon Social History Tobacco Use Types Packs/Day Years [...] housing situation today? I have deniamaranda menjivar 06/07/[address] you [...] Description 07/14/2024 2:30 PM EDT Office Visit [facility] ADULT DENTAL [address] [place] [address] Aron No DDS [address] [place] [address] documented as of this encounter Procedures Procedure Name Priority Date/Time Associated Diagnosis Comments BIOPSY VAGINAL Routine 05/04/2024 12:00 AM EST documented in this encounter Results * (ABNORMAL) Biopsy vaginal (05/04/2024 12:00 AM EST) us Historical Provider MD IN CLINIC/BEDSIDE ORDERAB LES Final Result [facility] documented in this encounter Visit Diagnoses Not on filedocumented in this encounter Additional Health Concerns Assessment Noted Time PHQ-9 Depression Total Score: 0 05/23/19 24 1:38 PM EST documented as of this encounter Care Teams Commercial Cleaner Relationship Specialty Start Date End Date Diamond Ponce MD [address] [place] [address] PCP - General Family Medicine 07/01/19 documented as of this encounter
--- OUTSIDE RECORDS SUMMARY | 2024-06-29 15:52 | XMS_ITS | Encounter Summary ---
Author Organization [facility] Address [address] [facility] 7t [place] [address] Care Team Providers Care Security Strategist Name Role Phone Diamond Ponce MD Primary Care Provide r Encounter Details Date Type Department Care Team (Late st Contact Info) Description 03/29/2022 [facility] Health Information Management [address] [place] [address] Diamond Ponce MD [address] [place] [address] Social History Tobacco Use Types Packs/Day Years [...] Description 07/14/2024 2:30 PM EDT Office Visit [facility] [address] [place] [address] Aron No DDS [address] [place] [address] documented as of this encounter Visit Diagnoses Not on filedocumented in this encounter Care Teams Security Strategist Relationship Specialty Start Date End Date Diamond Ponce MD [address] [place] [address] PCP - General Family Medicine 07/01/19 documented as of this encounter
--- OUTSIDE RECORDS SUMMARY | 2024-06-29 15:52 | XMS_ITS | Encounter Summary ---
Author Organization [facility] Address [address] [facility] 7t [place] [address] Care Team Providers Care Interactive Developer Name Role Phone Diamond Ponce MD Primary Care Provide r Encounter Details Date Type Department Care Team (Latest Contact Info) Description 12/12/2020 Abstract [facility] CONVERSIONS Dental, Provider, DDS Social History Tobacco [...] Description 07/14/2024 2:30 PM EDT Office Visit [facility] ADULT DENTAL [address] [place] [address] Aron No, DDS [address] [place] [address] documented as of this encounter Visit Diagnoses Not on filedocumented in this encounter Care Teams Interactive Developer Relationship Specialty Start Date End Date Diamond Ponce MD [address] [place] [address] PCP - General Family Medicine 07/01/19 documented as of this encounter
--- OUTSIDE RECORDS SUMMARY | 2024-06-29 15:52 | XMS_ITS | Encounter Summary ---
Author Organization [employer] [facility] Address [address] [facility] 7t [place] [address] Care Team Providers Care Sewer Pipe Layer Helper Name Role Phone Diamond Ponce MD Primary Care Provide r Encounter Details Date Type Department Care Team (Late st Contact Info) Description 12/11/2022 Orders Only [facility] MEDICINE [address] [place], [place] [phone] Provider, Historical, Social History Tobacco Use Types Packs/Day Years [...] Description 07/14/2024 2:30 PM EDT Office Visit [facility] ADULT DENTAL [address] [place], [place] [phone] Aron No DDS [address] [place], [place] [phone] documented as of this encounter Procedures Procedure [...] documented as of this encounter Care Teams Sewer Pipe Layer Helper Relationship Specialty Start Date End Date Diamond Ponce MD [address] [place] [address] PCP - General Family Medicine 07/01/19 documented as of this encounter
--- OUTSIDE RECORDS SUMMARY | 2024-06-29 15:52 | XMS_ITS | Encounter Summary ---
Author Organization [employer] Address [address] [facility] 7t [place] [address] Care Team Providers Care Lithographic Press Operator Apprentice Name Role Phone Diamond Ponce MD Primary Care Provide r Reason for Visit * Reason Onset Date Comments PA for lidocaine patches faxed 06/25/2024 Encounter Details Date Type Department Care Team (Late st Contact Info) Description 06/25/2024 Telephone [facility] [address] [place] [address] Shauna Hunt RN PA for lidocaine patches faxed Social History Tobacco Use Types Packs/Day Years [...] encounter Miscellaneous Notes * Telephone Encounter - Shauna Hunt RN - 06/25/2024 5:25 PM EDT PA for Rx lidocaine 5% patches faxed to [facility] [employer] @[phone] And to [facility] [employer] @ [phone] Confirmation of receipts received at 1730 documented in this encounter Plan of Treatment Upcoming Encounters Date Type Department Care Team (Late st Contact Info) Description 07/14/2024 2:30 PM EDT Office Visit [facility] ADULT DENTAL [address] [place] [address] Aron No DDS [address] [place] [address] documented as of this encounter Visit Diagnoses Not on filedocumented in this encounter Additional Health Concerns Assessment Noted Time PHQ-9 Depression Total Score: 0 05/23/19 24 1:38 PM EST documented as of this encounter Care Teams Lithographic Press Operator Apprentice Relationship Specialty Start Date End Date Diamond Ponce MD [address] [place] [address] PCP - General Family Medicine 07/01/19 documented as of this encounter
--- OUTSIDE RECORDS SUMMARY | 2024-06-29 15:52 | XMS_ITS | Encounter Summary ---
Author Organization [employer] Address [address] [facility] [address]t [place] [address] Care Team Providers Care Repairer Welding Equipment Name Role Phone Diamond Ponce MD Primary Care Provide r Reason for Visit * Reason Onset Date Comments Prior Authorization 03/04/2023 Encounter Details Date Type Department Care Team ([facility] st Contact Info) Description 03/04/2023 Telephone [facility] ADULT DENTAL [address] [place] [address] Aron No DDS [address] [place] [address] Prior Authorization Social History Tobacco Use Types [...] Description 07/14/2024 2:30 PM EDT Office Visit [facility] ADULT DENTAL [address] [place], [place] [phone] Aron No DDS [address] [place] [address] documented as of this encounter Visit Diagnoses Not on filedocumented in this encounter Additional Health Concerns Assessment Noted Time PHQ-9 Depression Total Score: 0 04/24/19 23 2:26 PM EST documented as of this encounter Care Teams Repairer Welding Equipment Relationship Specialty Start Date End Date Diamond Ponce MD [address] [place], [place] [phone] PCP - General Family Medicine 07/01/19 documented as of this encounter
== END 2024-06-29 13:46 | disposition home or self-care (01) ==
LOC: HO.HGI 13:03
PROVIDERS: PCP Nurse Practitioner Family; Visit Provider Nurse Practitioner
DX: K59.04 Chronic idiopathic constipation (principal); R14.0 Abdominal distension (gaseous); K21.9 Gastro-esophageal reflux disease without esophagitis
CPT/HCPCS: 99213

== ENCOUNTER → 2024-06-29 13:02 | Outpatient (BNVA) | payer OTHER, SELFPAY | PROVIDERS: PCP Nurse Practitioner Family; Visit Provider Nurse Practitioner | DX: K59.04 Chronic idiopathic constipation (principal); K21.9 Gastro-esophageal reflux disease without esophagitis; R14.0 Abdominal distension (gaseous) | CPT/HCPCS: 99212 ==

== ENCOUNTER 2024-07-07 08:25 | Outpatient (AMB) | payer OTHER, SELFPAY ==
--- OUTSIDE RECORDS SUMMARY | 2024-07-07 08:37 | XMS_ITS | Encounter Summary ---
Author Organization [facility] Address [address] [facility] 7t [place] [address] Care Team Providers Care Senior Director Marketing Name Role Phone Diamond Ponce MD Primary Care Provide r Encounter Details Date Type Department Care Team (Late st Contact Info) Description 03/29/2022 [facility] Health Information Management [address] [place] [address] Diamond Ponce MD [address] [place] [address] Social History Tobacco Use Types Packs/Day Years [...] Description 07/14/2024 2:30 PM EDT Office Visit [facility] ADULT DENTAL [address] [place] [address] Aron No DDS [address] [place] [address] documented as of this encounter Visit Diagnoses Not on filedocumented in this encounter Care Teams Senior Director Marketing Relationship Specialty Start Date End Date Diamond Ponce MD [address] [place] [address] PCP - General Family Medicine 07/01/19 documented as of this encounter
--- OUTSIDE RECORDS SUMMARY | 2024-07-07 08:37 | XMS_ITS | Data Portability ---
Author Organization [email or web address] Address [address] [place] [address] Assessment Encounter Date Assessment Date Assessment LastModified by Organization Details LastModified Time 06/24/2024 06/24/2024 I have reviewed and agree with the assessment and plan as documented by the lead technical architect. I provided real time medical direction for this encounter and was immediately available to provide additional phone based assistance as needed. History as noted by lead technical architect. Pt with history of chronic pain, dementia, HTN, HLD, DM2, LBP w/sciatica. Pt speaks only latvian, history and evaluation done with lead technical architect with help of dress cap maker. Recent urgent care visit note from 06/23 [...] Orders ibuprofen 600 mg tablet 2024 025 [facility], [address] [place] [address], [id number], 10:34:32 lidocaine 4 % topical patch 2024 025 [facility], [address] [place] [address], [id number], 15:49:38 ketorolac 60 mg/2 mL intramuscul ar solution 2024 025 [email or web address] Not available 14:33:58 Patient TargetsNo targets recorded. Patient InstructionsNo instructions recorded. Reason for Referral None Reported. Medical Equipment None Reported. Allergies Allergen ID Allergen Name Allergen Category Reaction Reaction Severity Criticality Documentation Date Start Date Code Code System Note Provider Name and Address Organization Details Recorded Time 48478 morphine medicatio n Not available Not available Not available 06/24/2024 7052 RxNorm Not Available [facility] - production 10:43:27 25380 tramadol medicatio n Not available Not available Not available 06/24/2024 32935 RxNorm Not Available [facility] - production 10:43:27 [...] Not Available Not Available No t Available famotidine 40 mg tablet TAKE 1 TABLET BY MOUTH AT BEDTIME active Not Available Not Available No t [...] Available acetaminophe n 500 mg tablet TAKE 2 TABLETS BY MOUTH EVERY 6 HOURS NEEDED FOR MODERATE PAIN OR FOR FEVER UP TO 25 DOSES active Not Available Not Available No t [...] No t Available ibuprofen 600 mg tablet TAKE 1 TABLET BY MOUTH EVERY 6 TO 8 HOURS NEEDED FOR BACK PAIN active Not Available Not Available No t Available albuterol sulfate HFA 90 mcg/actuatio n aerosol [...] active Not Available Not Available Not Available Gas Relief (simethicone ) 180 mg capsule TAKE 1 CAPSULE BY MOUTH TWICE DAILY AFTER MEALS active Not Available Not Available No t Available cyclobenzapr ine 5 mg tablet TAKE [...] 1 % topical gel APPLY 2 GRAMS TOPICALLY APPLY TOPICALLY TO THE AFFECTED AREA(S) EVERY DAY NEEDED FOR PAIN active Not Available Not Available No t Available ClearLax 17 gram/dose oral powder TAKE 17 GM MIXED IN 8 OUNCES OF WATER ONCE DAILY active Not Available Not Available No t Available Vitamin D3 50 mcg (2,000 unit) capsule TAKE 1 CAPSULE BY MOUTH EVERY DAY active Not Available Not Available No t Available Linzess 290 mcg capsule TAKE 1 CAPSULE BY MOUTH EVERY MORNING WITH A FULL GLASS OF WATER active Not Available Not Available No t [...] SNOMED-CT Code Diagnosis ICD10 Code Diagnosis Note [id number] Efren Johnston MD Main - [facility] [address] [place] [phone] 06/24/2024 14:19:25 06/24/2024 15:40:43 Closed fracture lumbar vertebra [id number] S32.008D Health Concerns Section Related Observation LastModified by Organization Detai ls LastModified Time None Recorded Concern Status LastModified by Organization Details LastModified Time None Recorded Advance Directives Directive None Recorded Payers Encounter Date Sequence Insurance Name Policy Number Policy Bae Covered Member ID Bae Member ID Guarantor Name 06/24/2024 1 [facility] [employer] - DOS ON OR AFTER 2022 - DUAL ELIGIBLE - [employer] OPTIONS AND ONE CARE (MEDICARE REPLACEMENT/AD VANTAGE - HMO) Eveline Herrera [id number] Eveline Herrera Notes Date Note Type Note Provider Name and Address Organization Details Recorded Time 06/24/2024 text/html This was a supervised home visit with lead technical architect Rishi Heard. HPI: She fell on 06/21 [...] ................... ................... ................... ................... ................... ................... ........ [facility] Nurse Triage Notes (Cecy Rios): Reason For Request: Pain in her back Chief Complaints: Back Pain PMH: Osteoporosis, Diabetes Mellitus Type 2 PMH Reviewed at 06/24/2024 - 10:43 Allergies Reviewed at 06/24/2024 - 10:43 ................... ................... ................... ................... ................... ................... ................... ........ Functional Manager Note From Rishi Heard: SC6 dispatched to [...] 15. Lung sounds clear in all morales. [facility] noted patient is Slovenian speaking only and daughter translated for [facility]. Patient reports that she had [...] urinating. Patient vital signs obtained as noted. [facility] consulted, provided orders for 30mg Toradol IM and advised that he would send prescription for Ibuprofen and Lidocaine patch to patient preferred pharmacy. 30mg Toradol IM administered in left deltoid without incident, patient rights verified. Red flags discussed with patient and advised to call 911 if condition worsens. SC6 clear. [facility] Medication Orders: ketorolac 60 mg/2 mL intramuscular solution: Administered ................... ................... ................... ................... ................... ................... ................... ........ [facility] Consulted: Efren Johnston ................... ................... ................... ................... ................... ................... ................... ........ Disposition: Fulfilled Efren Johnston MD [address] [place] [address],[address] [facility], [place], [phone], PHYLLIS - Favorite WordsFREDA CARROLL 06/24/2024 15:32:16 OBGyn Episode No OBEpisode recorded.
--- OUTSIDE RECORDS SUMMARY | 2024-07-07 08:37 | XMS_ITS | Encounter Summary ---
Author Organization [facility] Address [address] [place] [address] Care Team Providers Care Philosophy Lecturer Name Role Phone Diamond Ponce MD Primary Care Provide r Encounter Details Date Type Department Care Team (Late st Contact Info) Description 12/11/2022 Orders Only [facility] [address], [place] [phone] Provider, Historical, Social History Tobacco Use Types [...] Description 07/14/2024 2:30 PM EDT Office Visit [facility] [address], [place] [phone] Aron No DDS [address], [place] [phone] documented as of this encounter Procedures Procedure [...] documented as of this encounter Care Teams Philosophy Lecturer Relationship Specialty Start Date End Date Diamond Ponce MD [address] [place] [address] PCP - General Family Medicine 07/01/19 documented as of this encounter
--- OUTSIDE RECORDS SUMMARY | 2024-07-07 08:37 | XMS_ITS | Clinical Summary ---
Author Organization [employer] Address [address] [place] [address] 7[address] [place] [address] Care Team Providers Care Core Shaper Name Role Phone Diamond Ponce MD Primary Care Provide r Allergies Active Allergy Reactions Criticality Noted Date Comments Morphine 04/24/2022 confusion Tramadol 08/13/2022 Medications Melatonin 3 MG capsule take one at bed time 022 Active TRUEplus Lancets 33G misc TEST BLOOD SUGAR TWICE DAILY DIRECTED 023 Active famotidine (Pepcid) 40 MG tablet Take 40 mg by mouth at bedtime. 023 Active glucose blood (FREESTYLE LITE) test stripIndication s:Type 2 diabetes mellitus without complication, without long-term current use of insulin ([facility]) 1 each by Other route [...] nostril Once per day. 16 g 3 Active albuterol 108 (90 Base) MCG/ACT inhaler Inhale 2 puffs every 4 (four) hours if needed for wheezing or shortness of breath. 18 g 025 2025 Active Spacer/Aero-Hol ding Chambers (AeroChamber Mini Chamber) device Use with albuterol MDI as needed 1 each 025 Active magnesium gluconate 250 MG tablet Take 1 tablet by mouth Once per day. Active [place]-3 Fatty Acids (OMEGA 3 500 PO) 1 [...] patches at once. 60 patch 2 Active ibuprofen 800 MG tablet Take 1 tablet by mouth every 6 (six) hours if needed for mild pain. Active FT ClearLax 17 GM/SCOOP powder Take 17 g by mouth Once per day. Active carboxymethylce llulose (Artificial Tears) 1 % ophthalmic solutionIndicat ions:Dry eyes Administer 1 drop into both eyes 3 times daily. 15 mL 3 025 2025 Active dextran 70-hypromellose (artificial tears) 0.1-0.3 % ophthalmic solutionIndicat ions:Dry eye Administer 1 drop into both eyes if needed in the morning, at noon, in the evening, and at bedtime for dry eyes. 15 mL 11 023 2024 Discontinued(M ed list cleanup (will not trigger notification to Pharmacy)) Artificial Tear Solution (GenTeal Tears) 0.1-0.2-0.3 % solution USE 1 DROP IN EACH EYE FOUR TIMES DAILY NEEDED FOR DRY EYES. 023 2024 Discontinued(M ed list cleanup (will not trigger notification to Pharmacy)) hydrocortisone (Anusol-HC) 2.5 % rectal creamIndication s:Other hemorrhoids Insert into the rectum 2 times daily. 28 g 3 025 2024 Discontinued(M ed list cleanup (will not trigger notification to Pharmacy)) Diclofenac Sodium 1 % gelIndications: Costochondritis APPLY 2 GM TOPICALLY TO THE AFFECTED AREA IF NEEDED FOR PAIN 100 g 025 2024 Discontinued(R eorder (will not trigger notification to Pharmacy)) Reguloid 28.3 % powder MIX 1 TABLESPOONFUL IN WATER AND TAKE TWICE DAILY TO THREE TIMES DAILY IF TOLERATED 024 2024 Discontinued(M ed list cleanup (will not trigger notification to Pharmacy)) cyclobenzaprine (Flexeril) 5 MG tabletIndicatio ns:Chest wall pain Take 1 tablet (5 mg) by mouth 3 times daily for 10 days. 30 tablet 025 2024 Discontinued(M ed list cleanup (will not trigger notification to Pharmacy)) lidocaine (Lidoderm) 5 % patchIndication s:Chest wall [...] 06/03/2023 Dyspnea on exertion 05/23/2023 Fractured dental sikhism with loss of materi al 04/02/2023 Encounter [...] Encounters Date Type Department Care Team Description 06/30/2024 Orders Only [facility] [address] [place] [id number] [place] Arin, [facility] Dry eyes (Primary Dx) 06/29/2024 Orders Only [facility] [address] [place] [address] Carla Mckeon 06/25/2024 Telephone [facility] [address] [place] [address] Shauna Hunt RN PA for lidocaine patches faxed 06/23/2024 10:40 AM EDT Office Visit [facility] [address] [place] [address] Clyde Chase MD Closed fracture of transverse process of lumbar vertebra, initial encounter ([facility]) (Primary Dx); Costochondritis; Chest wall pain 06/23/2024 Telephone [facility] [address] [place] [phone] Clara Hightower, ANP 06/21/2024 Orders Only GENERIC EXTERNAL DATA DEPARTMENT Provider, Generic External Data 06/15/2024 1:45 PM EDT Office Visit [address] [address] Diamond Ponce MD Essential hypertension (Primary Dx); Type 2 diabetes mellitus without complication, without long-term current use of insulin ([facility]); Screening for colon cancer; Chest wall pain 06/15/2024 Travel 06/07/2024 Patient Outreach [address] [address] Diamond Ponce MD Pre-visit Planning (SDOH screening negative and tobacco screening negative) 06/02/[address] [address] Clara Hightower ANP 05/25/2024 Refill [facility] [address] [place] [address] Diamond Ponce MD Age-related osteoporosis without current pathological fracture 05/25/[address] [address] Lizbet Vickers, PharmD 05/24/2024 2:00 PM EST Office Visit [facility] [address] [place] [address] Daija Garrison MD Pain of upper abdomen (Primary Dx); External hemorrhoid; Other hemorrhoids; Costochondritis 05/06/2024 1:40 PM EST Office Visit [facility] [address] [place] [address] Doris Dugan DO Influenza A (Primary Dx); Viral upper respiratory tract infection; Acute maxillary sinusitis, recurrence not specified 05/06/[address] [address] Diamond Ponce MD 05/06/2024 Telephone [facility] [address] [place] [address] [phone] Doris Dugan DO 04/22/2024 2:15 PM EST Office Visit [facility] [address] [place] [address] Clara Hightower ANP Essential hypertension (Primary Dx); Pain of upper abdomen; Chronic left shoulder pain; Generalized abdominal pain 04/22/2024 Travel 04/20/2024 Telephone [facility] [address] [place] [address] Diamond Ponce MD Call Back Request 04/19/2024 3:20 PM EST Office Visit [facility] [address] [place] [address] Elvis Matta MD Chest pain, unspecified type [...] Sign Reading Time Taken Comments Blood Pressure 136/76 06/29/2024 2:15 PM EDT Pulse 74 06/29/2024 2:15 PM EDT Temperature 36.8 ??C (98.2 ??F) 06/23/2024 [...] Description 07/14/2024 2:30 PM EDT Office Visit [facility] [address] [place], [place] [phone] Aron No, DDS [address] [place], [place] [phone] Health Maintenance Due Date Last Done Comments CT Colonography 1955 FIT 1955 FOBT 1955 Sigmoidoscopy 1955 Colonoscopy 06/17/2023 06/16/2013 Dental Oral Exam 07/05/2023 01/02/2023, 11/28/2020 Dental Prophylaxis 07/05/2023 01/02/2023, 12/12/2020 Dental X-Ray: Full Mouth 11/30/2023 11/28/2020 Dental X-Ray: Bitewings 01/04/2024 01/03/20 23, 08/24/2021, 11/28/2020, Additional history exists DTaP/Tdap/Td Vaccines (2 - Td or Tdap) 02/08/2024 02/07/2014 Diabetes: Foot Exam 03/13/2024 03/13/2023, 03/13/2023, 03/13/2023, Additional history exists Depression Screening 05/22/2024 05/23/2023, 05/23/19 24 Mammogram 07/13/2024 07/14/2023, 04/10/2022, 07/09/2022, Additional history exists Diabetes: Hemoglobin A1C 09/01/2024 024, 12/09/2023, 05/23/2023, Additional history exists Influenza Vaccine (#1) 2024 3, 01/03/2022, 02/23/2021, Additional history exists Postponed from 11/23/2023 (Patient Refused) HPV/Cotest 11/01/2024 12/02/2018 Pap Smear 11/01/2024 Alcohol/Substance Use Screening 12/08/2024 12/09/2023 Diabetes: Urine Protein Screening 03/03/2025 03/03/2024, 01/14/2023 Lipid Panel 03/03/2025 03/03/2024, 12/23, 09/11/2021, Additional history exists SDOH Screening 06/07/2025 06/07/2024 Tobacco Screening 06/23/2025 06/23/2024 Eye Exam 10/02/2025 10/03/2023, 09/21, 10/03/2023, Additional history exists Colorectal Cancer Screening 06/29/2027 FIT DNA/Cologuard 06/29/2027 06/28/2024 COVID-19 Vaccine Discontinued 03/13/2021, , 07/14/2020 Pneumococcal [...] Procedure Name Priority Date/Time Associated Diagnosis Comments LAB COLOGUARD?? COLON CANCER SCREEN Routine 06/28/2024 10:00 PM EDT Screening for colon cancer URINALYSIS, COMPLETE, WITH REFLEX TO CULTURE Routine [...] complication, without long-term current use of insulin ([facility]) HEPATIC FUNCTION PANEL Routine 1:51 PM EST [...] without long-term current use of insulin (CMS/HCC) BI MAMMOGRAM SCREENING TOMOSYNTHESIS BILATERAL Routine 07/14/2023 [...] MRNA E6/E7 Routine 12/02/2018 3:30 PM EDT COLONOSCOPY Routine 06/16/2013 from Last 3 Months or Most Recently Relevant to Health Maintenance Results * Cologuard?? colon cancer screening (06/28/2024 10:00 PM EDT) Cologuard Result Negative Negative 07/07/19 12:46 PM EDT [facility] (CLIA #:[id number]) Comment: NEGATIVE TEST RESULT. A negative Cologuard result indicates a low likelihood that a colorectal cancer (CRC) or advanced adenoma (adenomatous polyps with more advanced pre-malignant features) ??is present. The chance that a person with a negative Cologuard test has a colorectal cancer is less than 1 in 1500 (negative predictive value >99.9%) or has an ??advanced adenoma is less than ??5.3% (negative predictive value 94.7%). These data are based on a prospective cross-sectional study of 10,000 individuals at average risk for colorectal cancer who were screened with both Cologuard and colonoscopy. (Amanda Jordan. et al, N Engl J Med 2014;370(14):1286- 1297) The normal value (reference range) for this assay is negative. COLOGUARD RE-SCREENING RECOMMENDATION: Periodic colorectal cancer screening is an important part of preventive healthcare for asymptomatic individuals at average risk for colorectal cancer. ??Following a negative Cologuard result, the [place] [employer] Society and U.S. Multi-Society Task Force screening guidelines recommend a Cologuard re-screening interval of 3 years. References: [place] [employer] Guideline for Colorectal Cancer Screening: https://www.cancer.org/cancer/zgpfb-amdsol-thtxvt/qngeozjdo-siradxvcz-oqrgszw/ac s-rec ommendations.html.; Robert PIRES, Tanisha DONALD, Ji [place], Colorectal Cancer Screening: Recommendations for Physicians and Patients from the U.S. Multi-Society Task Force on Colorectal Cancer Screening , Am J Gastroenterology 2017; 112:2403-0615. TEST DESCRIPTION: Composite algorithmic analysis of stool DNA-biomarkers with hemoglobin immunoassay. ?? Quantitative values of individual biomarkers are not reportable and are not associated with individual biomarker result reference ranges. Cologuard is intended for colorectal cancer screening of adults of either sex, 45 years or older, who are at average-risk for colorectal cancer (CRC). Cologuard has been approved for use by the U.S. FDA. The performance of Cologuard was established in a cross sectional study of average-risk adults aged 50-84. Cologuard performance in patients ages 45 to 49 years was estimated by sub-group analysis of near-age groups. Colonoscopies performed for a positive result may find as the most clinically significant lesion: colorectal cancer [4.0%], advanced adenoma (including sessile serrated polyps greater than or equal to 1cm diameter) [20%] or non- advanced adenoma [31%]; or no colorectal neoplasia [45%]. These estimates are derived from a prospective cross-sectional screening study of 10,000 individuals at average risk for colorectal cancer who were screened with both Cologuard and colonoscopy. (Amanda Jordan. et al, N Engl J Med 2014;370(14):8030-7446.) Cologuard may produce a false negative or false positive result (no colorectal cancer or precancerous polyp present at colonoscopy follow up). A negative Cologuard test result does not guarantee the absence of CRC or advanced adenoma (pre-cancer). The current Cologuard screening interval is every 3 years. ([place] [employer] and U.S. Multi-Society Task Force). Cologuard performance data in a 10,000 patient pivotal study using colonoscopy as the reference method can be accessed at the following location: www.LaunchSide/results. Additional description of the Cologuard test process, warnings and precautions can be found at www.FoodBoxrd.com. Stool specimen (specimen) 06/28/2024 10:00 PM EDT 06/30/2024 1:20 PM EDT us Diamond Lepe MD LAB MOLECULAR DIAGNOS TICS ORDERABLES Final Result [facility] (CLIA #:[id number]) [address] [address], [place] [phone] * (ABNORMAL) Urinalysis, Complete, with Reflex to Culture (06/21/2024 2:40 PM EDT) Color Urine Yellow [facility] Appearance Urine Clear [facility] PH >=9.0 5.0 - 9.0 [facility] Glucose Urine UA Negative Negative mg/dL [facility] Urine Blood Negative Negative [facility] Specific [place] - Urine >=1.030(H) 1.005 - 1.025 [facility] Urine Protein Negative Neg-Trace mg/dL [facility] Urine Ketones Negative Negative mg/dL [facility] Nitrite Urine Negative Negative [facility] Leukocyte Esterase Urine Small (1+)(A) Negative [facility] RBC Urine 0-2 0 - 2 /HPF [facility] Urine WBC 6-10 0 - 5 /HPF [facility] Urine Squamous Epithelial Cell 0-2 0 - 2 /HPF [facility] Urine Bacteria None Seen None Seen [facility] Hyaline Casts, Urine 0-2 0 - 2 /LPF [facility] 06/21/2024 2:40 PM EDT 06/21/2024 2:43 PM EDT Narrative [facility] - 06/21/2024 2:56 PM EDT Urine, Clean Catch us Generic External Data Provider LAB URINE ORDERAB LES Final Result Performing Organization Address City/State/[facility] Co de Phone Number [facility] [address] [place] [phone] * CT Abdomen Pelvis w/ Contrast (06/21/2024 10:35 AM EDT) Anatomical Region Laterality Modality Body, Pelvis, Abdomen Computed T omography 06/21/2024 10:3 5 AM EDT Narrative 06/21/2024 11:35 AM EDT ? [facility] ?[address] ?[place] [address] ? CT Scan Report ? Signed ? Patient: Nikolai De Nikhil,Eveline ? MR#: [id number] ? : 1955 ?Acct:[id number] ? Age/Sex: 69 / F ?ADM Date: 06/21/24 ? Loc: HO.ED ? Attending Dr: ? Ordering Physician: Ana Rehman DO ?? Date of Service: 06/21/24 ?? Procedure(s): CT abdomen pelvis w IV con ?? Accession Number(s): [id number] ? cc: Diamond Ponce MD; Ana Rehman DO ? Report Number: ?? [id number]: Total DLP = ??598.94 mGy-cm ?? EXAMINATION: [...] DD/ 1035 ? TD/TT: 06/21/24 1115 ? Artist Relationship Manager: ? Procedure Note Donamritater, Image - 06/21/[address] [address] [address] Scan Report Signed Patient: Eveline Novoa MR#: [id number] : 4Acct:[id number] Age/Sex: 69 / FADM Date: 06/21/24 Loc: HO.ED Attending Dr: Ordering Physician: Ana Rehman DO Date of Service: 06/21/24 Procedure(s): CT abdomen pelvis w IV con Accession Number(s): [id number] cc: Diamond Ponce MD; Ana Rehman DO Report Number: [id number]: Total DLP = 598.94 mGy-cm EXAMINATION: CT [...] 06/21/24 1132 DD/ 1035 TD/TT: 06/21/24 1115 Artist Relationship Manager: [facility] External Provider IMG CT PROCEDURES Final Result * CT Chest w/ Contrast (06/21/2024 10:35 AM EDT) Anatomical Region Laterality Modality Body, Chest Computed Tomogra phy 06/21/2024 10:3 5 AM EDT Narrative 06/21/2024 11:35 AM EDT ? [facility] ?[address] ?[place] [address] ? CT Scan Report ? Signed ? Patient: Nikolai De Nikhil,Eveline ? MR#: [id number] ? : 1955 ?Acct:[id number] ? Age/Sex: 69 / F ?ADM Date: 06/21/24 ? Loc: HO.ED ? Attending Dr: ? Ordering Physician: Ana Rehman DO ?? Date of Service: 06/21/24 ?? Procedure(s): CT chest w IV con ?? Accession Number(s): [id number] ? cc: Diamond Ponce MD; Ana Rehman DO ? Report Number: ?? [id number]: Total DLP = ??319.06 mGy-cm ?? EXAMINATION: [...] ??Marc Hart MD ??06/21/2024 11:32 AM EDT ? Dictated By: ?Marc Hart MD ? Signed By: ?<Electronically signed by Marc Hart MD in OV> ?06/21/24 1132 ? DD/ 1035 ? TD/TT: 06/21/24 1115 ? Artist Relationship Manager: ? Procedure Note Guille, Image - 06/21/[address] [place] [address] [address] Scan Report Signed Patient: Eveline Novoa MR#: [id number] : 4Acct:[id number] Age/Sex: 69 / FADM Date: 06/21/24 Loc: HO.ED Attending Dr: Ordering Physician: Ana Rehman DO Date of Service: 06/21/24 Procedure(s): CT chest w IV con Accession Number(s): [id number] cc: Diamond Ponce MD; Ana Rehman DO Report Number: [id number]: Total DLP = 319.06 mGy-cm EXAMINATION: CT [...] Marc Hart MD 06/21/2024 11:32 AM EDT RP Dictated By: Marc Hart MD Signed By: <Electronically signed by Marc Hart MD in OV> 06/21/24 1132 DD/ 1035 TD/TT: 06/21/24 1115 Artist Relationship Manager: [facility] External Provider IMG CT PROCEDURES Final Result * CT Cervical Spine w/o Contrast (06/21/2024 10:27 AM EDT) Anatomical Region Laterality Modality Spine, C-spine Computed Tomogra phy 06/21/2024 10:2 7 AM EDT Narrative 06/21/2024 11:31 AM EDT ? [facility] ?[address] ?[place] [address] ? CT Scan Report ? Signed ? Patient: Nikolai De Nikhil,Eveline ? MR#: [id number] ? : 1955 ?Acct:[id number] ? Age/Sex: 69 / F ?ADM Date: 03/31/25 ? Loc: HO.ED ? Attending Dr: ? Ordering Physician: Ori,Ana DO ?? Date of Service: 06/21/24 ?? Procedure(s): CT cervical spine wo IV con ?? Accession Number(s): [id number] ? cc: Diamond Ponce MD; Ana Rehman DO ? Report Number: ?? [id number]: Total DLP = ??436.45 mGy-cm ?? EXAMINATION: [...] and C5-6. ? Electronically signed by: ??Charles Hilliadr MD ??06/21/2024 11:28 AM EDT RP ? Dictated By: ?Charles Hilliard MD ? Signed By: ?<Electronically signed by Charles Hilliard MD in OV> ?06/21/24 1128 ? DD/ 1027 ? TD/TT: 06/21/24 1115 ? Artist Relationship Manager: ? Procedure Note Donotuseinterpreter, Image - 06/21/[address] [address] [address] Scan Report Signed Patient: Eveline Novoa MR#: [id number] : 1955cct:[id number] Age/Sex: 69 / FADM Date: 06/21/24 Loc: HO.ED Attending Dr: Ordering Physician: Ana Rehman DO Date of Service: 06/21/24 Procedure(s): CT cervical spine wo IV con Accession Number(s): [id number] cc: Diamond Ponce MD; Ana Rehman DO Report Number: [id number]: Total DLP = 436.45 mGy-cm EXAMINATION: CT [...] 06/21/24 1128 DD/ 1027 TD/TT: 06/21/24 1115 Artist Relationship Manager: us [facility] External Provider IMG CT PROCEDURES Final Result * CT Head w/o Contrast (06/21/2024 10:27 AM EDT) Anatomical Region Laterality Modality Head, Neck Computed Tomogra phy 06/21/2024 10:2 7 AM EDT Narrative 06/21/2024 11:30 AM EDT ? [facility] ?[address] ?[place] [address] ? CT Scan Report ? Signed ? Patient: Eveline Novoa ? MR#: [id number] ? : 1955 ?Acct:[id number] ? Age/Sex: 69 / F ?ADM Date: 06/21/24 ? Loc: HO.ED ? Attending Dr: ? Ordering Physician: Ana Rehman DO ?? Date of Service: 06/21/24 ?? Procedure(s): CT head/brain wo IV con ?? Accession Number(s): [id number] ? cc: Diamond Ponce MD; Ana Rehman DO ? Report Number: ?? [id number]: Total DLP = ??745.55 mGy-cm ?? EXAMINATION: [...] Curtis MD ??06/21/2024 11:28 AM ?? EDT ? Dictated By: ?Lamonte Sharp MD ? Signed By: ?<Electronically signed by Lamonte Montero MD in OV> ? 06/21/24 1128 ? DD/ 1027 ? TD/TT: 06/21/24 1115 ? Artist Relationship Manager: ? Procedure Note Guille, Image - 06/21/[address] [address] [address] Scan Report Signed Patient: Eveline Novoa MR#: [id number] : 4Acct:[id number] Age/Sex: 69 / FADM Date: 06/21/24 Loc: HO.ED Attending Dr: Ordering Physician: [place],Ana DO Date of Service: 06/21/24 Procedure(s): CT head/brain wo IV con Accession Number(s): [id number] cc: Diamond Ponce MD; Ana Rehman Report Number: [id number]: Total DLP = 745.55 mGy-cm EXAMINATION: CT [...] Lamonte Curtis MD 06/21/2024 11:28 AM EDT Dictated By: Lamonte Sharp MD Signed By: <Electronically signed by Lamonte Montero MDin OV> 06/21/24 1128 DD/ 1027 TD/TT: 06/21/24 1115 Artist Relationship Manager: [facility] External Provider IM CT PROCEDURES Final Result * Magnesium (06/21/2024 9:52 AM EDT) Magnesium 2.2 1.6 - 2.6 mg/dL [facility] 06/21/2024 9:52 AM EDT 06/21/2024 9:53 AM EDT Generic External Data Provider LAB BLOOD ORDERAB LES Final Result Performing Organization Address City/[facility]/ZIP Co de Phone Number [facility] [address] [place] [phone] * Lipase (06/21/2024 9:52 AM EDT) Only the most recent of2 resultswithin the time period is included. Lipase 26 8 - 78 U/L [facility] 06/21/2024 9:52 AM EDT 06/21/2024 9:53 AM EDT Generic External Data Provider LAB BLOOD ORDERAB LES Final Result Performing Organization Address [facility] Co de Phone Number [facility] [address] [place] [phone] * Hepatic Function Panel (06/21/2024 9:52 AM EDT) Only the most recent of2 resultswithin the time period is included. Bilirubin, Total 0.6 0.0 - 1.0 mg/dL [facility] Bilirubin, Direct 0.1 0.0 - 0.5 mg/dL [facility] Aspartate Amino Transferase 25 5 - 31 U/L [facility] Alanine Aminotransferase 13 0 - 31 U/L [facility] Total Protein 6.7 6.5 - 8.0 g/dL [facility] Albumin Level 3.7 3.5 - 5.0 g/dL [facility] Alkaline Phosphatase 64 39 - 117 U/L [facility] 06/21/2024 9:52 AM EDT 06/21/2024 9:53 AM EDT us Generic External Data Provider LAB BLOOD ORDERAB LES Final Result Performing Organization Address City/[facility]/ZIP Co de Phone Number [facility] [address] [place] [phone] * (ABNORMAL) Basic Metabolic Panel (06/21/2024 9:52 AM EDT) Sodium 140 135 - 145 mmol/L [facility] Potassium 4.2 3.3 - 5.1 mmol/L [facility] Chloride 109(H) 96 - 108 mmol/L [facility] Carbon Dioxide 24 22 - 29 mmol/L [facility] Anion Gap 11(L) 12 - 20 [facility] Urea Nitrogen (BUN) 16 9 - 16 mg/dL [facility] Creatinine, Serum 0.76 0.5 - 1.4 mg/dL [facility] Creatinine Clr Calc Pharmacy 57.4 [facility] Comment:Provided height and weight: 149.86 cm,67.132 kg.eGFR (calculated from the MDRD study equation) and eCrCl(calculated from the Cockcroft-Gault equation) are based ondifferent parameters and may not yield comparable results.If eCrCl result is absurd, please check patient'sheight/weight. Estimated Glomerular Filt Rate >60 [facility] Comment:Chronic Kidney Disea se: Estimated GFR < 60 mL/min/1.84l7Wttozd Kidney Disease: Estimated GFR < 15 mL/min/1.73m2 Glucose 95 60 - 115 mg/dL [facility] Calcium 9.0 8.4 - 10.2 mg/dL [facility] 06/21/2024 9:52 AM EDT 06/21/2024 9:53 AM EDT us Generic External Data Provider LAB BLOOD ORDERAB LES Final Result Performing Organization Address [facility]/ZIP Co de Phone Number [facility] [address] [place] [phone] * (ABNORMAL) CBC auto differential (06/21/2024 8:55 AM EDT) White Blood Count 5.1 4.8 - 10.8 X10*3/uL [facility] Red Blood Count 4.40 4.20 - 5.50 X10*6/uL [facility] Hemoglobin 14.0 12.0 - 16.0 g/dl [facility] Hematocrit 42.6 37.0 - 47.0 % [facility] Mean Corpuscular Volume 96.8 80.0 - 98.0 fL [facility] Mean Corpuscular Hemoglobin 31.8 27.0 - 33.0 pg [facility] Mean Corpuscular HGB Conc 32.9 31.0 - 35.0 g/dl [facility] Red Cell Distribution Width 11.9 11.0 - 16.0 % [facility] Platelet Count 281 160 - 400 X10*3/uL [facility] Mean Platelet Volume 9.4 9.4 - 12.3 fL [facility] Neutrophils Percent Auto 71.9 45 - 73 % [facility] Imm Gran Pct Auto 0.4 0.0 - 0.4 % [facility] Lymphocytes Percent Auto 16.7(L) 20 - 40 % [facility] Monocytes Percent Auto 7.5 2 - 11 % [facility] [facility] Eosinophils Percent Auto 3.1 0 - 4 % [facility] Basophils Percent Auto 0.4 0 - 2 % [facility] NRBC Pct Auto 0.0 0.0 - 0.2 /100WBC [facility] Neutrophils Absolute Auto 3.7 2.0 - 8.3 x10*3/uL [facility] Imm Gran Abs Auto 0.02 0.00 - 0.03 X10*3/uL [facility] Lymphocytes Absolute Auto 0.9(L) 1.2 - 4.9 X10*3/uL [facility] Monocytes Absolute Auto 0.4 0.1 - 1.2 X10*3/uL [facility] Eosinophils Absolute Auto 0.2 0.0 - 0.4 X10*3/uL [facility] Basophils Absolute Auto 0.0 0.0 - 0.2 X10*3/uL [facility] NRBC Abs Auto 0.000 0.0 - 0.012 X10*3/uL [facility] 06/21/2024 8:55 AM EDT 06/21/2024 9:02 AM EDT us Generic External Data Provider LAB BLOOD ORDERAB LES Final Result Performing Organization Address City/[facility]/ZIP Co de Phone Number [facility] [address] [place] [phone] * Culture, Urine, Routine (06/21/2024 12:00 AM EDT) Urine Urine specimen obtained by clean catch procedure / Unknown 06/21/2024 06/21/2024 Comment:UACC Narrative [facility] - 06/22/2024 8:40 AM EDT Urine Culture Report Result Urine Culture < 10,000 cfu/ml Specimen Source: Urine clean catch us Generic External Data Provider LAB MICROBIOLOGY - GENERAL ORDERABLES Final Result Performing Organization Address City/[facility]/ZIP Co de Phone Number [facility] [address] [place] [phone] * POCT Glucose (06/15/2024 1:40 PM EDT) Glucose Blood, POC 107 60 - 200 mg/dL QC Media Lot # [id number] Lot# Expiration Date [id number] Blood Capillary blood specimen / Unknown 06/15/2024 1:40 PM EDT us Diamond Lepe MD POINT OF CARE TEST EN TER/EDIT ORDERABLES Final Result * Amylase (05/25/2024 1:51 PM EST) Amylase 77 28 - 100 U/L [facility] Blood Venous blood specimen / Unknown 05/25/2024 1:51 PM EST 05/25/2024 4:03 PM EST Clara Terrell ANP LAB BLOOD ORDERABLES Final Resul t [facility] [address] [facility] [place] [address] [phone] * US Abdomen Complete (05/07/2024 4:28 PM EST) Anatomical Region Laterality Modality Abdomen Ultrasound 05/07/2024 4:28 PM EST Narrative 05/07/2024 4:29 PM EST ? [facility] ?[address] ?[place] [address] ? Ultrasound Report ? Signed ? Patient: Nikolai Do,Eveline ? MR#: [id number] ? : 1955 ?Acct:[id number] ? Age/Sex: 69 / F ?ADM Date: 05/07/24 ? Loc: HO.US ? Attending Dr: Clara Hightower NP ? Ordering Physician: CLARA HIGHTOWER NP ?? Date of Service: 05/07/24 ?? Procedure(s): US abdomen complete ?? Accession Number(s): [id number] ? cc: Diamond Ponce MD; CLARA HIGHTOWER [...] ? DD/ 27 ? TD/TT: 05/07/241627 ? Artist Relationship Manager: ? Procedure Note Donotuseinterpreter, Image - 05/07/2024 [place] [address] Ultrasound Report Signed Patient: Eveline Novoa MR#: [id number] : 1955cct:[id number] Age/Sex: 69 / FADM Date: 05/07/24 Loc: HO.US Attending Dr: Clara Hightower NP Ordering Physician: CLARA HIGHTOWER NP Date of Service: 05/07/24 Procedure(s): US abdomen complete Accession Number(s): [id number] cc: Diamond Ponce MD; CLARA HIGHTOWER NP [...] signed by Katalina Coto MD in OV> 05/07/241627 DD/ 27 TD/TT: 05/07/241627 Artist Relationship Manager: us Clara Hightower ANP IMG US PROCEDURES Edited Result - Final * XR Chest 2 Views (05/06/2024 2:09 PM EST) Anatomical Region Laterality Modality Chest Radiographic Nicky ging 05/06/2024 2:09 PM EST Narrative 05/06/2024 2:52 PM EST ?[facility] ?[address] ?[place], [place] [address] ?XRay Report ? Signed ? Patient: Nikolai Do,Eveline ? MR#: [id number] ? : 1955 ?Acct:[id number] ? Age/Sex: 69 / F ?ADM Date: 05/06/24 ? Loc: HO.HHCX ? Attending Dr: Doris Dugan DO ? Ordering Physician: Doris Dugan DO ?? Date of Service: 05/06/24 ?? Procedure(s): XR chest 2V ?? Accession Number(s): [id number] ? cc: Doris Dugan DO ? EXAMINATION: [...] DD/ 1409 ? TD/TT: 05/06/24 1420 ? Artist Relationship Manager: ? Procedure Note Guille, Image - 05/06/2024 [facility] [address] [place] [address] XRay Report Signed Patient: Eveline Novoa MR#: [id number] : 4Acct:[id number] Age/Sex: 69 / FADM Date: 05/06/24 Loc: .HHCX Attending Dr: Doris Dugan DO Ordering Physician: Doris Dugan DO Date of Service: 05/06/24 Procedure(s): XR chest 2V Accession Number(s): [id number] cc: Doris Dugan DO EXAMINATION: XR CHEST [...] 05/06/24 1449 DD/ 1409 TD/TT: 05/06/24 1420 Artist Relationship Manager: us Doris Dugan DO IMG XR PROCEDURES Final Resu lt * Influenza B (ID NOW Rapid Molecular) (05/06/2024 1:46 PM EST) Influenza B Negative Negative, Indeterminate [facility] Swab 05/06/2024 1:46 PM EST us Doris Dugan DO POINT OF CARE TEST ENTER/TAI T ORDERABLES Final Result [facility] [address] [place] [phone] * (ABNORMAL) Influenza A (ID NOW Rapid Molecular) (05/06/2024 1:46 PM EST) [facility] Influenza A Positive( A) Negative, Indeterminate [facility] Swab 05/06/2024 1:46 PM EST Doris Dugan DO POINT OF CARE TEST ENTER/TAI T ORDERABLES Final Result Performing Organization Address [facility]/ZIP Co de Phone Number [facility] [address] [place] [phone] * POCT Rapid COVID Ag (05/06/2024 1:46 PM EST) [facility] Rapid COVID Ag Negative [facility] Swab 05/06/2024 1:46 PM EST Doris Dugan DO POINT OF CARE TEST ENTER/TAI T ORDERABLES Final Result Performing Organization Address [facility] Co de Phone Number [facility] [address] [place] [phone] * POCT rapid strep A manually resulted (05/06/2024 1:46 PM EST) [facility] Rapid Strep A Screen Negative Negative, None Detected [facility] Swab 05/06/2024 1:46 PM EST Doris Dugan DO POINT OF CARE TEST ENTER/TAI T ORDERABLES Final Result Performing Organization Address [facility]/ZIP Co de Phone Number [facility] [address] [place] [phone] * (ABNORMAL) Biopsy vaginal (05/04/2024 12:00 AM EST) Historical Provider MD IN CLINIC/BEDSIDE ORDERAB LES Final Result [facility] * ECG 12 lead (04/19/2024 2:39 PM EST) Narrative Name, MD Elvis - 04/19/2024 2:39 PM EST Normal sinus rhythm. ??Heart rate of 73. ??No ST segment elevation or depression. ??Q waves in lead III and no change from her baseline us [place] Matta MD ECG ORDERABLES Final Result * Albumin, Random Urine W/Creatinine (03/03/2024 7:57 AM EST) Creatinine, Urine 57.95 mg/dL [facility] Microalbumin Urine <5.0 mg/L [facility] Microalbum Creatinine Ratio Ur TNP <30 ug/mg cr [facility] Comment:Unable to calculate albumin/creatinine ratio due to lowmicroalbumin or creatinine result. Urine (Urine, Random) 03/03/2024 7:57 AM EST 03/03/2024 11:16 AM EST Diamond Lepe MD LAB URINE ORDERABLES Final Result Performing Organization Address City/[facility]/ZIP Co de Phone Number [facility] [address] [place] [phone] * Hepatitis C Antibody with Reflex to HCV, RNA, Quantitative, Real-Time PCR (03/03/2024 7:57 AM EST) Hepatitis C Antibody Nonreactive Nonreactive [facility] Comment:Antibodies to HCV no t detected; does not exclude early acuteHCV infection. Blood Venous blood specimen / Unknown 03/03/2024 7:57 AM EST 03/03/2024 11:18 AM EST Diamond Lepe MD LAB BLOOD ORDERABLES Final Result Performing Organization Address City/[facility]/ZIP Co de Phone Number [facility] [address] [place] [phone] * (ABNORMAL) Hemoglobin A1c (03/03/2024 7:57 AM EST) Hemoglobin A1c 6.4(H) <6.0 % [facility] Comment:Hemoglobin A1C Refer ence Range [...] asaverage glucose, using the formula of the C2K-BsbxpztIcfyxqc Glucose study (ADAG), Diabetes Care, Vol.31,#8,2007 Blood Venous blood specimen / Unknown 03/03/2024 7:57 AM EST 03/03/2024 11:17 AM EST Diamond Lepe MD LAB BLOOD ORDERABLES Final Result [facility] [address] [place] [phone] * (ABNORMAL) Lipid Panel, Standard (03/03/2024 7:57 AM EST) Triglycerides 73 <150 mg/dL [facility] Comment:Desirable Triglyceri de: less than [...] 190 mg/dL HDL Cholesterol 61 >40 mg/dL [facility] Comment:Desirable HDL: great er than 40 mg/dL Note: This HDL assay may give artificially low results in patients with liver disease. Blood Venous blood specimen / Unknown 03/03/2024 7:57 AM EST 03/03/2024 11:18 AM EST us Diamond Lepe MD LAB BLOOD ORDERABLES Final Result [facility] [address] [place] [phone] * BI Mammogram Screening Tomosynthesis Bilateral (07/14/2023 1:53 PM EDT) Anatomical Region Laterality Modality Breast Bilateral Mammography 07/14/2023 1:53 PM EDT Narrative 08/11/2023 5:10 AM EDT ? [facility] [place] ? [address] ?[place] [address] ? Mammography Report ? Signed ? Patient: Nikolai De Nikhil,Eveline ? MR#: [id number] ? : 1955 ?Acct:[id number] ? Age/Sex: 68 / F ?ADM Date: //24 ? Loc: HO.MAMMO ? Attending Dr: Diamond Lepe MD ? Ordering Physician: Diamond Ponce MD ?Results: ?? 1Negative ? Date of Service: //24 ?Follow Up: 1 Year From Orig ?? inal Mammogram ? Procedure(s): MM tomosynthesis screening BI ?? Accession Number(s): [id number] ? cc: Diamond Ponce MD ? EXAMINATION: ?? MM SCREENING DIGITAL BREAST TOMOSYNTHESIS, BILATERAL ? CLINICAL INFORMATION: ? Screening. Asymptomatic. ? COMPARISON: ?? Mammography: This study is compared with prior exams dating back to ?? 2018. ? TECHNIQUE: ?? Digital breast tomosynthesis is [...] in OV> ? 08/11/23 0507 ? DD/ ? TD/TT: ? Artist Relationship Manager: ? Procedure Note Cara Han - 08/11/2023 [place] [facility] [address] [place] [address] [place] [address] Mammography Report Signed Patient: Eveline Novoa MR#: [id number] : 4Acct:[id number] Age/Sex: 68 / FADM Date: 07/14/23 Loc: HO.MAMMO Attending Dr: Diamond Lepe MD Ordering Physician: Diamond Ponce MDResults: 1Negative Date of Service: 07/14/23Follow Up: 1 Year From Orig inal Mammogram Procedure(s): MM tomosynthesis screening BI Accession Number(s): [id number] cc: Diamond Ponce MD EXAMINATION: MM SCREENING [...] in OV> 08/11/23 0507 DD/ 1353 TD/TT: Artist Relationship Manager: Diamond Lepe MD IMG BI PROCEDURES Tai ta Result - Final * (ABNORMAL) HPV mRNA E6/E7 (12/02/2018 3:30 PM EDT) HPV mRNA E6/E7 DETECTED (AA) NOT DETECTED [facility] Comment: This test was performed using the APTIMA(R) HPV Assay ([employer] This assay detects E6/E7 viral messenger RNA (mRNA) from 14 high-risk HPV types (16,18,31,33,35,39,45,51, 52,56,58,59,66,68). For additional information please refer to: http://education.Purplle.Perfusix/faq/QGV743v0 (This link is being provided for informational/ educational purposes only.) The analytical performance characteristics of this assay have been determined by [employer] [place], [place]. The modifications have not been cleared or approved by the FDA. This assay has been validated pursuant to the CLIA regulations and is used for clinical purposes. Test Performed by [employer] [facility], [employer] [place], [address] [place] [address] Justyn Nettles M.D., Ph.D., Director of Laboratories , CLIA [id number] Please note: ??Effective 12/04/2015, HPV testing will be performed using [employer]'s APTIMA test which targets mRNA. Detecting mRNA instead of DNA, as in older methods, offers significant improvements in specificity. 12/02/2018 3:30 PM EDT Leonarda Mancera CNM HISTORICAL/NON ORDERABLE LABS Final Result [facility] Anywhere [address] * Hm Colonoscopy (06/16/2013) Historical Provider MD HEALTH MAINTENANCE Final Result from Last 3 Months or Most Recently Relevant to Health Maintenance Insurance [address] [place] [address], [place] [address] [facility] Care Teams Core Shaper Relationship Specialty Start Date End Date Diamond Ponce MD [address] [place] [phone] PCP - General Family Medicine 07/01/19
--- OUTSIDE RECORDS SUMMARY | 2024-07-07 08:37 | XMS_ITS | Encounter Summary ---
Author Organization [facility] Address [address] [facility] [address]t [place] [address] Care Team Providers Care Cardiovascular Operating Room Nurse Name Role Phone Diamond Ponce MD Primary Care Provide r Reason for Visit * Reason Onset Date Comments triage 04/23/2022 Encounter Details Date Type Department Care Team ([facility] st Contact Info) Description 04/23/2022 Telephone [facility] MEDICINE [address] [place], [place] [phone] Diamond Ponce MD [address] [place], [place] [phone] triage Social History Tobacco Use Types Packs/Day [...] caller The caller accepted this outcome speaks maltese documented in this encounter Plan of Treatment Upcoming Encounters Date Type Department Care Team (Late st Contact Info) Description 07/14/2024 2:30 PM EDT Office Visit [facility] ADULT DENTAL [address] [place] [address] Aron No DDS [address] [place] [phone] documented as of this encounter Visit Diagnoses Not on filedocumented in this encounter Care Teams Cardiovascular Operating Room Nurse Relationship Specialty Start Date End Date Diamond Ponce MD [address] [place] [address] PCP - General Family Medicine 07/01/19 documented as of this encounter
--- OUTSIDE RECORDS SUMMARY | 2024-07-07 08:37 | XMS_ITS | Encounter Summary ---
Author Organization [facility] Address [address] [facility] [address]t [place] [address] Care Team Providers Care Social Economist Name Role Phone Diamond Ponce MD Primary Care Provide r Reason for Visit * Reason Onset Date Comments Prior Authorization 03/04/2023 Encounter Details Date Type Department Care Team ([facility] st Contact Info) Description 03/04/2023 Telephone [facility] ADULT DENTAL [address] [place] [address] Aron No DDS [address] [place] [address] Prior Authorization Social History Tobacco Use Types [...] Description 07/14/2024 2:30 PM EDT Office Visit [facility] ADULT DENTAL [address] [place], [place] [phone] Aron No DDS [address] [place] [address] documented as of this encounter Visit Diagnoses Not on filedocumented in this encounter Additional Health Concerns Assessment Noted Time PHQ-9 Depression Total Score: 0 04/24/19 23 2:26 PM EST documented as of this encounter Care Teams Social Economist Relationship Specialty Start Date End Date Diamond Ponce MD [address] [place], [place] [phone] PCP - General Family Medicine 07/01/19 documented as of this encounter
--- OUTSIDE RECORDS SUMMARY | 2024-07-07 08:37 | XMS_ITS | Encounter Summary ---
Author Organization [employer] [facility] Address [address] [facility] [address]t [place] [address] Care Team Providers Care Monitor Car Operator Name Role Phone Diamond Ponce MD Primary Care Provide r Encounter Details Date Type Department Care Team (Late st Contact Info) Description 06/29/2024 Orders Only [facility] [address] [place], [place] [phone] Carla Mckeon Social History Tobacco Use Types [...] Description 07/14/2024 2:30 PM EDT Office Visit [facility] ADULT DENTAL [address] [place] [address] Aron No DDS [address] [place] [address] documented as of this encounter Procedures Procedure Name Priority Date/Time Associated Diagnosis Comments BIOPSY VAGINAL Routine 05/04/2024 12:00 AM EST documented in this encounter Results * (ABNORMAL) Biopsy vaginal (05/04/2024 12:00 AM EST) us Historical Provider MD IN CLINIC/BEDSIDE ORDERAB LES Final Result [facility] documented in this encounter Visit Diagnoses Not on filedocumented in this encounter Additional Health Concerns Assessment Noted Time PHQ-9 Depression Total Score: 0 05/23/19 24 1:38 PM EST documented as of this encounter Care Teams Monitor Car Operator Relationship Specialty Start Date End Date Diamond Ponce MD [address] [place] [address] PCP - General Family Medicine 07/01/19 documented as of this encounter
--- OUTSIDE RECORDS SUMMARY | 2024-07-07 08:37 | XMS_ITS | Encounter Summary ---
Author Organization [facility] Address [address] [facility] [address]t [place] [address] Care Team Providers Care Molasses And Caramel Operator Name Role Phone Diamond Ponce MD Primary Care Provide r Encounter Details Date Type Department Care Team (Latest Contact Info) Description 12/12/2020 Abstract [facility] CONVERSIONS Dental, Provider, DDS Social History [...] Description 07/14/2024 2:30 PM EDT Office Visit [facility] ADULT DENTAL [address] [place] [address] Aron No, DDS [address] [place] [address] documented as of this encounter Visit Diagnoses Not on filedocumented in this encounter Care Teams Molasses And Caramel Operator Relationship Specialty Start Date End Date Diamond Ponce MD [address] [place] [address] PCP - General Family Medicine 07/01/19 documented as of this encounter
--- OUTSIDE RECORDS SUMMARY | 2024-07-07 08:37 | XMS_ITS | Encounter Summary ---
Author Organization [employer] [facility] Address [address] [facility] [address] [place] [address] Care Team Providers Care Numerical Control Router Operator Name Role Phone Diamond Ponce MD Primary Care Provide r Reason for Visit * Reason Onset Date Comments Med Refill 04/23/2022 Encounter Details Date Type Department Care Team ([facility] st Contact Info) Description 04/23/2022 Telephone [facility] MEDICINE [address] [place] [address] Diamond Ponce MD [address] [place] [address] Med Refill Social History Tobacco Use Types [...] Description 07/14/2024 2:30 PM EDT Office Visit [facility] ADULT DENTAL [address] [place] [address] Aron No DDS [address] [place] [address] documented as of this encounter Visit Diagnoses Not on filedocumented in this encounter Care Teams Numerical Control Router Operator Relationship Specialty Start Date End Date Diamond Ponce MD [address] [place] [address] PCP - General Family Medicine 07/01/19 documented as of this encounter
--- NOTE | 2024-07-07 08:57 | MHC.OFFVIS ---
Vital Signs 07/07/24 09:00 Height 4 ft 11 in Weight 145 lb BMI 29.3 BP 162/77 H Blood Pressure Location Lt brachial Position Sitting Respiration 16 Pulse 76 Pulse Source Pulse Oximeter Pulse Oximetry (%) 97 Oxygen Delivery Method Room Air Intake Visit Reasons: Closed fracture lumbar vertebra Room Service Runner Required: Yes Room Service Runner Language: Watch And Clock Maker And Repairer Services: Room Service Runner Present Room Service Runner Name: Cliff [phone] Allergies tramadol Allergy (Severe, Verified 07/07/24 09:04) Hallucinations morphine Allergy (Intermediate, Verified 07/07/24 09:04) Hallucinations Medication List - Last Reconciled 07/07/24 by Mimi Nair LPN baclofen 1 tab PO TID bisacodyl (Dulcolax (bisacodyl)) 10 mg (2 x 5 mg) PO BEDTIME 2 days blood sugar diagnostic (FreeStyle Lite Strips) As directed cetirizine 10 mg PO DAILY diclofenac sodium 1% 2 grams topical QID ibuprofen 1 tab PO TID PRN lancets (TRUEplus Lancets) As directed linaclotide (Linzess) 290 mcg PO QAM 30 days polyethylene glycol 3350 (Miralax) 17 grams PO DAILY HPI Comments Details: Visit completed with Watch And Clock Maker And Repairer Cliff, #[id number]. The patient is a 69-year-old female presenting with back pain due to lumbar vertebral fractures. Approximately one month ago, she began experiencing pain on the left side of her back following a fall. Imaging has confirmed non-displaced transverse process fractures in the lumbar vertebrae at L1, L2, and L3. Her pain is exacerbated by sitting, shifting from a seated position, and certain physical movements, though it alleviates with walking. She currently manages her pain with Tylenol and ibuprofen, which mitigates the severity to a 4 on a 0-10 scale. She denies any related neurological symptoms or incontinence. She states she is sleeping well at night and pain has been improving over time. Days after the fall pain was 10/10, now averaging 4/10 but improves if she is walking around. After the fall patient was evaluated in the ER, imaging completed, results as per below. She was given oxycodone, reports no relief with this medication. - Onset: Approximately one month ago - Quality: Persistent left-sided pain without radiation down lower extremity - Location: Lumbar vertebrae (L1, L2, L3) on the left side - Aggravating factors: Sitting, standing from a seated position, bending, twisting - Relieving factors: Walking - Pain level: 4 out of 10, improving - Affect: Pain impacts activities requiring sitting or shifting positions - Analgesia: Currently using Tylenol and ibuprofen with effective pain relief - Adverse Effects: None reported - Activities of Daily Living: Pain affects sitting, standing from seated positions, and certain movements - Aberrant Drug Related Behaviors: None reported [facility] Medical History (Updated 07/07/24 @ 09:30 by Anayeli Willson, INJECTION MOLDING MACHINE OPERATOR, [employer]) COVID-19 Pre-op examination Diabetes type 2, controlled High cholesterol Surgical History H/O colonoscopy H/O: hysterectomy H/O section Social History Alcohol intake: never Patient Tobacco Use Status: Never used Tobacco Advance Directives Date on File: 10/26/21 Current occupation: [employer] Review of Systems Const Details: - Musculoskeletal: Reports back pain - Neurological: Denies burning, numbness, or tingling in the extremities - Genitourinary: Denies urinary incontinence Physical Exam Vital Signs: Last Vital Signs Pulse 76 07/07/24 09:00 Resp 16 07/07/24 09:00 BP 162/77 H 07/07/24 09:00 Pulse Ox 97 07/07/24 09:00 Oxygen Delivery Method Room Air 07/07/24 09:00 BMI result Body Mass Index 29.3 General: awake, alert, oriented. Answers questions appropriately. Fully engaged in examination. Skin: warm, dry, intact HEENT: Normocephalic. Hearing intact. Cardiac: External chest normal in appearance. Respiratory: No cough, audible wheezing or stridor. Abdomen: without gross distension. MS: No obvious swelling or deformities. Able to stand on bilateral tiptoes and bilateral heels.? Able to transition from sit to stand unassisted. Ambulates with bilaterally normal heel strike and toe off Tenderness to palpation over left lumbar vertebrae and paraspinal muscles Facet loading positive Decreased lumbar ROM SLR neg bilaterally DTRs intact BLE strength 5/5 Neurological: Oriented to person, place, time and situation. Thought process intact. No gait abnormalities appreciated. Psychiatric: Appropriate mood and affect. Good judgment and insight. Results Reviewed Results Reviewed: 06/21/24 CT/CT abdomen pelvis w IV con IMPRESSION: 1. Nondisplaced fractures of the left transverse processes of L1, L2, and L3. 2. No evidence of traumatic visceral injury to the chest, abdomen, or pelvis. 3. Small hiatal hernia. Large amount of stool throughout the colon. Assessment & Plan Assessment & Plan (1) Chronic pain: Code(s): G89.29 - Other chronic pain Category: Medical (2) Lumbar transverse process fracture: Comment: Left L1, L2, L3. Non-displaced. Code(s): S32.009A - Unspecified fracture of unspecified lumbar vertebra, initial encounter for closed fracture Category: Medical (3) Dorsalgia: Code(s): M54.9 - Dorsalgia, unspecified Category: Medical Plan The patient will start physical therapy to help alleviate pain by strengthening muscles around the affected area. She will continue her current use of Tylenol and ibuprofen as they provide pain relief. Therapy will occur at a facility covered by her insurance since home therapy is not applicable without specific need. A follow-up will occur after completing the therapy sessions to assess progress and decide if further pain management interventions like injections are necessary. I discussed with the patient the current status of her vertebral fractures and the approach to managing her back pain. The patient was informed that physical therapy would assist in strengthening the muscles surrounding the fractures to help alleviate her pain and improve function. She agreed to continue her current pain medication of Tylenol and ibuprofen, both of which have been providing relief. I explained that should the pain persist after physical therapy, we could explore the option of injection therapies for further relief. She understands that physical therapy sessions will occur at a covered facility and has been provided with contact information for scheduling. A follow-up is planned upon completion of the therapy to re-evaluate her condition. Patient was informed and verbally consented to the use of an ambient scribe for clinic note documentation during this visit. Orders: Orders PT Evaluation and Treatment Today M54.9 - Dorsalgia, unspecified, S32.009A - Unspecified fracture of unspecified lumbar vertebra, initial encounter for closed fracture Patient Instructions: - Begin physical therapy as instructed - Continue taking Tylenol and ibuprofen for pain management - Expect contact for scheduling of physical therapy sessions - Follow up after physical therapy to review progress and pain management strategy - Report any significant changes in pain or function immediately Coding Level of Care Code New Pt Level 4 (01543) Complex EM visit Add On G2211 Diagnoses Chronic pain G89.29 Lumbar transverse process fracture S32.009A Dorsalgia M54.9
[2024-07-07 09:00] VITALS: BP 162/77; PULSE 76; RESP 16; O2SAT 97; BMI 29.3
== END 2024-07-07 09:32 | disposition home or self-care (01) ==
LOC: HO.PMC 08:25
PROVIDERS: PCP Internal Medicine; Referring Provider Emergency Medicine; Visit Provider Registered Nurse Emergency
DX: G89.29 Other chronic pain (principal); S32.009A Unspecified fracture of unspecified lumbar vertebra, initial encounter for closed fracture; M54.9 Dorsalgia, unspecified
CPT/HCPCS: 99204; G2211

== ENCOUNTER → 2024-07-07 08:25 | Outpatient (BNVA) | payer OTHER, SELFPAY | PROVIDERS: PCP Internal Medicine; Referring Provider Emergency Medicine; Visit Provider Registered Nurse Emergency | DX: G89.29 Other chronic pain (principal); S32.009A Unspecified fracture of unspecified lumbar vertebra, initial encounter for closed fracture; X58.XXXA Exposure to other specified factors, initial encounter; Y93.9 Activity, unspecified; Y92.9 Unspecified place or not applicable; Y99.9 Unspecified external cause status | CPT/HCPCS: 99202 ==

== ENCOUNTER 2024-07-19 13:21 | Outpatient (REF) | payer OTHER, SELFPAY ==
--- OUTSIDE RECORDS SUMMARY | 2024-07-19 15:52 | XMS_ITS | Encounter Summary ---
Author Organization [employer] [facility] Address [address] [place] [address] Care Team Providers Care Medical Insurance Verifier Name Role Phone Diamond Ponce MD Primary Care Provide r Reason for Visit * Reason Onset Date Comments triage 04/23/2022 Encounter Details Date Type Department Care Team ([facility] st Contact Info) Description 04/23/2022 Telephone [facility] MEDICINE [address] [place], [place] [phone] Diamond Ponce MD [address] [place], [place] [phone] triage Social History Tobacco Use Types Packs/Day [...] caller The caller accepted this outcome speaks lithuanian documented in this encounter Plan of Treatment Upcoming Encounters Date Type Department Care Team (Late st Contact Info) Description 08/12/2024 3:00 PM EDT Office Visit [facility] ADULT DENTAL [address] [place] [address] Tiffanie Hilario, DDS [address] [place] [address] documented as of this encounter Visit Diagnoses Not on filedocumented in this encounter Care Teams Medical Insurance Verifier Relationship Specialty Start Date End Date Diamond Ponce MD [address] [place] [address] PCP - General Family Medicine 07/01/19 documented as of this encounter
--- OUTSIDE RECORDS SUMMARY | 2024-07-19 15:52 | XMS_ITS | Data Portability ---
Author Organization [employer] [facility] [employer] Address [address] [place] [address] Care Team Providers Care Statistical Typist Name Role Phone HIM [facility] OTHER Assessment Encounter Date Assessment Date Assessment LastModified by Organization Details LastModified Time 06/24/2024 06/24/2024 I have reviewed and agree with the assessment and plan as documented by the parts classifier. I provided real time medical direction for this encounter and was immediately available to provide additional phone based assistance as needed. History as noted by parts classifier. Pt with history of chronic pain, dementia, HTN, HLD, DM2, LBP w/sciatica. Pt speaks only german, history and evaluation done with parts classifier with help of news department intern. Recent urgent care visit note from 06/23 [...] Orders ibuprofen 600 mg tablet 2024 025 [facility], [address] [place] [address], [id number], 10:34:32 lidocaine 4 % topical patch 2024 025 [facility], [address] [place] [address], [id number], 15:49:38 ketorolac 60 mg/2 mL intramuscul ar solution 2024 025 [email or web address] Not available 14:33:58 Patient TargetsNo targets recorded. Patient InstructionsNo instructions recorded. Reason for Referral None Reported. Medical Equipment None Reported. Allergies Allergen ID Allergen Name Allergen Category Reaction Reaction Severity Criticality Documentation Date Start Date Code Code System Note Provider Name and Address Organization Details Recorded Time 87356 morphine medicatio n Not available Not available Not available 06/24/2024 7052 RxNorm Not Available [facility] - production 10:43:27 15735 tramadol medicatio n Not available Not available Not available 06/24/2024 95151 RxNorm Not Available [facility] - production 10:43:27 Medications Name Sig Start [...] Not Available Not Available N ot Available polyvinyl alcohol 1.4 % eye drops INSTILL 1 DROP IN EACH EYE THREE TIMES DAILY active Not Available Not Available No t Available ondansetron HCl 4 mg tablet TAKE [...] SNOMED-CT Code Diagnosis ICD10 Code Diagnosis Note [id number] Efren Johnston MD Main - [facility] [address] [place] [phone] 06/24/2024 14:19:25 06/24/2024 15:40:43 Closed fracture lumbar vertebra [id number] S32.008D Health Concerns Section Related Observation LastModified by Organization Detai ls LastModified Time None Recorded Concern Status LastModified by Organization Details LastModified Time None Recorded Advance Directives Directive None Recorded Payers Encounter Date Sequence Insurance Name Policy Number Policy Bae Covered Member ID Bae Member ID Guarantor Name 06/24/2024 1 [facility] - DOS ON OR AFTER 2022 - DUAL ELIGIBLE - SNF OPTIONS AND ONE CARE (MEDICARE REPLACEMENT/AD VANTAGE - HMO) Eveline Herrera [id number] Eveline Herrera Notes Date Note Type Note Provider Name and Address Organization Details Recorded Time 06/24/2024 text/html This was a supervised home visit with parts classifier Rishi Heard. HPI: She fell on 06/21 [...] ................... ................... ................... ................... ................... ................... ........ Aerologist Note From Rishi Heard: [facility] dispatched to the address listed above for the report of a female libertarian with back pain. Arrival on scene, patient was found inside apartment with family seated in chair, alert and oriented x4, patent airway, breathing non labored speaking in complete sentences, skin WPD in no immediate distress. +/= Chest rise. -SOB, -CP, -NVD, -Trauma, -Fever. GCS 15. Lung sounds clear in all morales. [facility] noted patient is Indonesian speaking only and daughter translated for [facility]. Patient reports that she had a mechanical [...] urinating. Patient vital signs obtained as noted. [facility] consulted, provided orders for 30mg Toradol IM and advised that he would send prescription for Ibuprofen and Lidocaine patch to patient preferred pharmacy. 30mg Toradol IM administered in left deltoid without incident, patient rights verified. Red flags discussed with patient and advised to call 911 if condition worsens. [facility] clear. [facility] Medication Orders: ketorolac 60 mg/2 mL intramuscular solution: Administered ................... ................... ................... ................... ................... ................... ................... ........ [facility] Consulted: Efren Johnston ................... ................... ................... ................... ................... ................... ................... ........ Disposition: Fulfilled Efren Johnston MD [address] [place] [address],[address] [facility], [place], [phone], [facility] 06/24/2024 15:32:16 OBGyn Episode No OBEpisode recorded.
--- OUTSIDE RECORDS SUMMARY | 2024-07-19 15:52 | XMS_ITS | Clinical Summary ---
Author Organization [employer] Address [address] [place] [address] 7t [place] [address] Care Team Providers Care Color Drum Worker Name Role Phone Diamond Ponce MD [...] complication, without long-term current use of insulin ([facility]) 1 each by Other route every 12 [...] tablet by mouth Once per day. Active [place]-3 Fatty Acids (OMEGA 3 500 PO) 1 [...] 17 g by mouth Once per day. 025 Active carboxymethylce llulose (Artificial Tears) 1 % ophthalmic solutionIndicat ions:Dry eyes Administer 1 drop into both eyes 3 times daily. 15 mL 3 025 2025 Active Blood Glucose Monitoring Suppl ([employer]Fl[employer].it Lite) w/Device kitIndications: Type 2 diabetes mellitus without complication, without long-term current use of insulin ([facility]) Use to monitor blood sugar twice daily 1 kit Active dextran 70-hypromellose (artificial tears) 0.1-0.3 % [...] daily for 10 days. 30 tablet 025 04/09/ 2025 Discontinued(M ed list cleanup (will not trigger notification to Pharmacy)) lidocaine (Lidoderm) 5 % patchIndication s:Chest wall pain Apply 1 patch topically Once per day. Remove & discard patch within 12 hours or as directed by . 30 patch 025 2024 Discontinued(R eorder (will [...] 06/03/2023 Dyspnea on exertion 05/23/2023 Fractured dental restorationism with loss of materi al 04/02/2023 Encounter [...] Encounters Date Type Department Care Team Description 07/14/2024 2:30 PM EDT Office Visit [facility] [address] [place], [place] [phone] Aron No DDS Fractured dental restorationism with loss of material (Primary Dx) 07/14/2024 Refill [facility] [address] [place] [address] Diamond Ponce MD Type 2 diabetes mellitus without complication, without long-term current use of insulin ([facility]) 06/30/2024 Orders Only [facility] [address] [place] [address] Arin Montalvo FNP Dry eyes (Primary Dx) 06/29/2024 Orders Only [facility] [address] [place] [address] Carla Mckeon 06/25/2024 Telephone [facility] [address] [address] Shauna Hunt RN PA for lidocaine patches faxed 06/23/2024 10:40 AM EDT Office Visit [facility] [address] [address] Clyde Chase MD Closed fracture of transverse process of lumbar vertebra, initial encounter ([facility]) (Primary Dx); Costochondritis; Chest wall pain 06/23/[address] [address] Clara Hightower ANP 06/21/2024 Orders Only GENERIC EXTERNAL DATA DEPARTMENT Provider, Generic External Data 06/15/2024 1:45 PM EDT Office Visit [address] [address] Diamond Ponce MD Essential hypertension (Primary Dx); Type 2 diabetes mellitus without complication, without long-term current use of insulin ([facility]); Screening for colon cancer; Chest wall pain 06/15/2024 Travel 06/07/2024 Patient Outreach [address] [address] Diamond Ponce MD Pre-visit Planning (SDOH screening negative and tobacco screening negative) 06/02/[address] [address] Clara Hightower ANP 05/25/2024 Refill [facility] [address], [place] [phone] Diamond Ponce MD Age-related osteoporosis without current pathological fracture 05/25/[address] [address] Lizbet Vickers, BiancaD 05/24/2024 2:00 PM EST Office Visit [facility] [address] [address] Daija Garrison MD Pain of upper abdomen (Primary Dx); External hemorrhoid; Other hemorrhoids; Costochondritis 05/06/2024 1:40 PM EST Office Visit [facility] [address] [place] [phone] Doris Dugan DO Influenza A (Primary Dx); Viral upper respiratory tract infection; Acute maxillary sinusitis, recurrence not specified 05/06/[address] [address] Diamond Ponce MD 05/06/2024 Telephone [facility] [address] [place] [phone] Doris Dugan DO 04/22/2024 2:15 PM EST Office Visit [address] [address] Clara Hightower ANP Essential hypertension (Primary Dx); Pain of upper abdomen; Chronic left shoulder pain; Generalized abdominal pain 04/22/2024 Travel 04/20/[address] [address] Diamond Ponce MD Call Back Request from Last 3 Months Immunizations Name Administration [...] Description 08/12/2024 3:00 PM EDT Office Visit [facility] [address] [place] [address] Tiffanie Hilario, [place] [address] [place] [address] Health Maintenance Due Date Last Done Comments [...] exists SDOH Screening 06/07/2025 06/07/2024 Tobacco Screening 07/14/2025 07/14/2024 Eye Exam 10/02/2025 10/03/2023, 09/21, 10/03/2023, Additional [...] Procedure Name Priority Date/Time Associated Diagnosis Comments INTRAORAL - PERIAPICAL FIRST RADIOGRAPHIC IMAGE Routine 07/14/2024 2:30 PM EDT CASE PRESENTATION, DETAILED AND EXTENSIVE TREATMENT PLANNING Routine 07/14/2024 2:30 PM EDT LIMITED ORAL EVALUATION - PROBLEM FOCUSED Routine 07/14/2024 2:30 PM EDT LAB COLOGUARD?? COLON CANCER SCREEN Routine 06/28/2024 [...] BIOPSY VAGINAL Routine 05/04/2024 12:00 AM EST HEPATITIS C AB W/REFL TO HCV RNA, [...] Result Negative Negative 07/07/19 12:46 PM EDT [facility] (CLIA #:[id number]) Comment: NEGATIVE TEST RESULT. A negative Cologuard [...] screened with both Cologuard and colonoscopy. (Amanda Gonzalez et al, N Engl J Med 2014;370(14):1286- 1297) The normal value (reference range) for this assay is negative. COLOGUARD RE-SCREENING RECOMMENDATION: Periodic colorectal cancer screening is an important part of preventive healthcare for asymptomatic individuals at average risk for colorectal cancer. ??Following a negative Cologuard result, the [place] Cancer Society and U.S. Multi-Society Task Force screening guidelines recommend a Cologuard re-screening interval of 3 years. References: [place] [employer] Guideline for Colorectal Cancer Screening: https://www.cancer.org/cancer/ldulo-nykldh-drxvib/tsccwlvoy-ubvfhasea-dpndkwy/ac s-rec ommendations.html.; Robert DK, Tanisha DONALD, Ji [place], Colorectal Cancer Screening: Recommendations for Physicians and Patients from the U.S. Multi-Society Task Force on Colorectal Cancer Screening , Am J Gastroenterology 2017; 112:1346-6527. TEST DESCRIPTION: Composite algorithmic analysis of stool [...] screened with both Cologuard and colonoscopy. (Amanda Sharif al, N Engl J Med 2014;370(14):0590-0398.) Cologuard may produce a false negative or false positive result (no colorectal cancer or precancerous polyp present at colonoscopy follow up). A negative Cologuard test result does not guarantee the absence of CRC or advanced adenoma (pre-cancer). The current Cologuard screening interval is every 3 years. ([place] Cancer Society and U.S. Multi-Society Task Force). Cologuard performance data in a 10,000 patient pivotal study using colonoscopy as the reference method can be accessed at the following location: www.Glassdoor/results. Additional description of the Cologuard test process, warnings and precautions can be found at www.cologPeopLeaserd.com. Stool specimen (specimen) 06/28/2024 10:00 PM EDT 06/30/2024 1:20 PM EDT us Diamond Lepe MD LAB MOLECULAR DIAGNOS TICS ORDERABLES Final Result [facility] (CLIA #:[id number]) [place] [address], [place] [phone] * (ABNORMAL) Urinalysis, Complete, with Reflex to Culture (06/21/2024 2:40 PM EDT) Color Urine Yellow [facility] Appearance Urine Clear [facility] PH >=9.0 5.0 - 9.0 [facility] Glucose Urine UA Negative Negative mg/dL [facility] Urine Blood Negative Negative [facility] Specific [place] - Urine >=1.030(H) 1.005 - 1.025 [facility] Urine Protein Negative Neg-Trace mg/dL [facility] Urine Ketones Negative Negative mg/dL [facility] Nitrite Urine Negative Negative [facility] Leukocyte Esterase Urine Small (1+)(A) Negative [facility] RBC Urine 0-2 0 - 2 /HPF [facility] Urine WBC 6-10 0 - 5 /HPF [facility] Urine Squamous Epithelial Cell 0-2 0 - 2 /HPF [facility] Urine Bacteria None Seen None Seen [facility] Hyaline Casts, Urine 0-2 0 - 2 /LPF [facility] 06/21/2024 2:40 PM EDT 06/21/2024 2:43 PM EDT Narrative [facility] - 06/21/2024 2:56 PM EDT Urine, Clean Catch us Generic External Data Provider LAB URINE ORDERAB LES Final Result [facility] [address] [place] [phone] * CT Abdomen Pelvis w/ Contrast (06/21/2024 10:35 AM EDT) Anatomical Region Laterality Modality Body, Pelvis, Abdomen Computed T omography 06/21/2024 10:3 5 AM EDT Narrative 06/21/2024 11:35 AM EDT ? [facility] ?[address] ?[place] [address] ? CT Scan Report ? Signed ? Patient: Eveline Novoa ? MR#: [id number] ? : 1955 ?Acct:[id number] ? Age/Sex: 69 / F ?ADM Date: 06/21/24 ? Loc: HO.ED ? Attending Dr: ? Ordering Physician: Ana Rehman DO ?? Date of Service: 06/21/24 ?? Procedure(s): CT abdomen pelvis w IV con ?? Accession Number(s): [id number] ? cc: Diamond Ponce MD; Ana Rehman DO ? Report Number: ?? [id number]: Total DLP = ??598.94 mGy-cm ?? EXAMINATION: [...] DD/ 1035 ? TD/TT: 06/21/24 1115 ? Screw Remover: ? Procedure Note Cara Han - 06/21/[address] [place] [address] [address] Scan Report Signed Patient: Eveline Novoa MR#: [id number] : 1955cct:[id number] Age/Sex: 69 / FADM Date: 06/21/24 Loc: HO.ED Attending Dr: Ordering Physician: Ana Rehman DO Date of Service: 06/21/24 Procedure(s): CT abdomen pelvis w IV con Accession Number(s): [id number] cc: Diamond Ponce MD; Ana Rehman DO Report Number: [id number]: Total DLP = 598.94 mGy-cm EXAMINATION: CT [...] 06/21/24 1132 DD/ 1035 TD/TT: 06/21/24 1115 Screw Remover: [facility] External Provider IMG CT PROCEDURES Final Result * CT Chest w/ Contrast (06/21/2024 10:35 AM EDT) Anatomical Region Laterality Modality Body, Chest Computed Tomogra phy 06/21/2024 10:3 5 AM EDT Narrative 06/21/2024 11:35 AM EDT ? [facility] ?[address] ?[place] [address] ? CT Scan Report ? Signed ? Patient: Eveline Novoa ? MR#: [id number] ? : 1955 ?Acct:[id number] ? Age/Sex: 69 / F ?ADM Date: 06/21/24 ? Loc: HO.ED ? Attending Dr: ? Ordering Physician: Ana Rehman DO ?? Date of Service: 06/21/24 ?? Procedure(s): CT chest w IV con ?? Accession Number(s): [id number] ? cc: Diamond Ponce MD; Ana Rehman DO ? Report Number: ?? [id number]: Total DLP = ??319.06 mGy-cm ?? EXAMINATION: [...] DD/ 1035 ? TD/TT: 06/21/24 1115 ? Screw Remover: ? Procedure Note Guille, Image - 06/21/[address] [address] [address] Scan Report Signed Patient: Eveline Novoa MR#: [id number] : 4Acct:[id number] Age/Sex: 69 / FADM Date: 06/21/24 Loc: HO.ED Attending Dr: Ordering Physician: Ana Rehman DO Date of Service: 06/21/24 Procedure(s): CT chest w IV con Accession Number(s): [id number] cc: Diamond Ponce MD; Ana Rehman DO Report Number: [id number]: Total DLP = 319.06 mGy-cm EXAMINATION: CT [...] 06/21/24 1132 DD/ 1035 TD/TT: 06/21/24 1115 Screw Remover: [facility] External Provider IMG CT PROCEDURES Final Result * CT Cervical Spine w/o Contrast (06/21/2024 10:27 AM EDT) Anatomical Region Laterality Modality Spine, C-spine Computed Tomogra phy 06/21/2024 10:2 7 AM EDT Narrative 06/21/2024 11:31 AM EDT ? [facility] ?[address] ?[place] [address] ? CT Scan Report ? Signed ? Patient: Nikolai De Nikhil,Eveline ? MR#: [id number] ? : 1955 ?Acct:[id number] ? Age/Sex: 69 / F ?ADM Date: 06/21/24 ? Loc: HO.ED ? Attending Dr: ? Ordering Physician: Ana Rehman DO ?? Date of Service: 06/21/24 ?? Procedure(s): CT cervical spine wo IV con ?? Accession Number(s): [id number] ? cc: Diamond Ponce MD; Ana Rehman DO ? Report Number: ?? [id number]: Total DLP = ??436.45 mGy-cm ?? EXAMINATION: [...] DD/ 1027 ? TD/TT: 06/21/24 1115 ? Screw Remover: ? Procedure Note Donhoustoninterpreter, Image - 06/21/[address] [place] [address] [address] Scan Report Signed Patient: Eveline Novoa MR#: [id number] : 4Acct:[id number] Age/Sex: 69 / FADM Date: 06/21/24 Loc: HO.ED Attending Dr: Ordering Physician: Ana Rehman DO Date of Service: 06/21/24 Procedure(s): CT cervical spine wo IV con Accession Number(s): [id number] cc: Diamond Ponce MD; Ana Rehman DO Report Number: [id number]: Total DLP = 436.45 mGy-cm EXAMINATION: CT [...] Charles Hilliard MD 06/21/2024 11:28 AM EDT Dictated By: Charles Hilliard MD Signed By: <Electronically signed by Charles Hilliard MD in OV> 06/21/24 1128 DD/ 1027 TD/TT: 06/21/24 1115 Screw Remover: [facility] External Provider IMG CT PROCEDURES Final Result * CT Head w/o Contrast (06/21/2024 10:27 AM EDT) Anatomical Region Laterality Modality Head, Neck Computed Tomogra phy 06/21/2024 10:2 7 AM EDT Narrative 06/21/2024 11:30 AM EDT ? [facility] ?[address] ?[place] [address] ? CT Scan Report ? Signed ? Patient: Nikolai De Nikhil,Eveline ? MR#: [id number] ? : 1955 ?Acct:[id number] ? Age/Sex: 69 / F ?ADM Date: /31/25 ? Loc: HO.ED ? Attending Dr: ? Ordering Physician: Ana Rehman DO ?? Date of Service: 06/21/24 ?? Procedure(s): CT head/brain wo IV con ?? Accession Number(s): [id number] ? cc: Diamond Ponce MD; Ana Rehman DO ? Report Number: ?? [id number]: Total DLP = ??745.55 mGy-cm ?? EXAMINATION: [...] DD/ 1027 ? TD/TT: 06/21/24 1115 ? Screw Remover: ? Procedure Note Donotuseinterpreter, Image - 06/21/[address] [address] [address] Scan Report Signed Patient: Eveline Novoa MR#: [id number] : 1955cct:[id number] Age/Sex: 69 / FADM Date: 06/21/24 Loc: HO.ED Attending Dr: Ordering Physician: Ana Rehman DO Date of Service: 06/21/24 Procedure(s): CT head/brain wo IV con Accession Number(s): [id number] cc: Diamond Ponce MD; Ana Rehman DO Report Number: [id number]: Total DLP = 745.55 mGy-cm EXAMINATION: CT [...] 06/21/24 1128 DD/ 1027 TD/TT: 06/21/24 1115 Screw Remover: [facility] External Provider IMG CT PROCEDURES Final Result * Magnesium (06/21/2024 9:52 AM EDT) Magnesium 2.2 1.6 - 2.6 mg/dL [facility] 06/21/2024 9:52 AM EDT 06/21/2024 9:53 AM EDT Generic External Data Provider LAB BLOOD ORDERAB LES Final Result Performing Organization Address City/[facility] Co de Phone Number [facility] [address] [place] [phone] * Lipase (06/21/2024 9:52 AM EDT) Only the most recent of2 resultswithin the time period is included. Lipase 26 8 - 78 U/L [facility] 06/21/2024 9:52 AM EDT 06/21/2024 9:53 AM EDT Generic External Data Provider LAB BLOOD ORDERAB LES Final Result Performing Organization Address City/[facility] Co de Phone Number [facility] [address] [place] [phone] * Hepatic Function Panel (06/21/2024 9:52 AM EDT) Only the most recent of2 resultswithin the time period is included. Bilirubin, Total 0.6 0.0 - 1.0 mg/dL [facility] Bilirubin, Direct 0.1 0.0 - 0.5 mg/dL [facility] Aspartate Amino Transferase 25 5 - 31 U/L [facility] Alanine Aminotransferase 13 0 - 31 U/L [facility] Total Protein 6.7 6.5 - 8.0 g/dL [facility] Albumin Level 3.7 3.5 - 5.0 g/dL [facility] Alkaline Phosphatase 64 39 - 117 U/L [facility] 06/21/2024 9:52 AM EDT 06/21/2024 9:53 AM EDT us Generic External Data Provider LAB BLOOD ORDERAB LES Final Result [facility] [address] [place] [address] [phone] * (ABNORMAL) Basic Metabolic Panel (06/21/2024 9:52 AM EDT) Sodium 140 135 - 145 mmol/L [facility] Potassium 4.2 3.3 - 5.1 mmol/L [facility] Chloride 109(H) 96 - 108 mmol/L [facility] Carbon Dioxide 24 22 - 29 mmol/L [facility] Anion Gap 11(L) 12 - 20 [facility] Urea Nitrogen (BUN) 16 9 - 16 mg/dL [facility] Creatinine, Serum 0.76 0.5 - 1.4 mg/dL [facility] Creatinine Clr Calc Pharmacy 57.4 [facility] Comment:Provided height and weight: 149.86 cm,67.132 kg.eGFR (calculated from the MDRD study equation) and eCrCl(calculated from the Cockcroft-Gault equation) are based ondifferent parameters and may not yield comparable results.If eCrCl result is absurd, please check patient'sheight/weight. Estimated Glomerular Filt Rate >60 [facility] Comment:Chronic Kidney Disea se: Estimated GFR < 60 mL/min/1.74m0Ghoktd Kidney Disease: Estimated GFR < 15 mL/min/1.73m2 Glucose 95 60 - 115 mg/dL [facility] Calcium 9.0 8.4 - 10.2 mg/dL [facility] 06/21/2024 9:52 AM EDT 06/21/2024 9:53 AM EDT us Generic External Data Provider LAB BLOOD ORDERAB LES Final Result [facility] [address] [place] [phone] * (ABNORMAL) CBC auto differential (06/21/2024 8:55 AM EDT) White Blood Count 5.1 4.8 - 10.8 X10*3/uL [facility] Red Blood Count 4.40 4.20 - 5.50 X10*6/uL [facility] Hemoglobin 14.0 12.0 - 16.0 g/dl [facility] Hematocrit 42.6 37.0 - 47.0 % [facility] Mean Corpuscular Volume 96.8 80.0 - 98.0 fL [facility] Mean Corpuscular Hemoglobin 31.8 27.0 - 33.0 pg [facility] Mean Corpuscular HGB Conc 32.9 31.0 - 35.0 g/dl [facility] Red Cell Distribution Width 11.9 11.0 - 16.0 % [facility] Platelet Count 281 160 - 400 X10*3/uL [facility] Mean Platelet Volume 9.4 9.4 - 12.3 fL [facility] Neutrophils Percent Auto 71.9 45 - 73 % [facility] Imm Gran Pct Auto 0.4 0.0 - 0.4 % [facility] Lymphocytes Percent Auto 16.7(L) 20 - 40 % [facility] Monocytes Percent Auto 7.5 2 - 11 % [facility] Eosinophils Percent Auto 3.1 0 - 4 % [facility] Basophils Percent Auto 0.4 0 - 2 % [facility] NRBC Pct Auto 0.0 0.0 - 0.2 /100WBC [facility] Neutrophils Absolute Auto 3.7 2.0 - 8.3 x10*3/uL [facility] Imm Gran Abs Auto 0.02 0.00 - 0.03 X10*3/uL [facility] Lymphocytes Absolute Auto 0.9(L) 1.2 - 4.9 X10*3/uL [facility] Monocytes Absolute Auto 0.4 0.1 - 1.2 X10*3/uL [facility] Eosinophils Absolute Auto 0.2 0.0 - 0.4 X10*3/uL [facility] Basophils Absolute Auto 0.0 0.0 - 0.2 X10*3/uL [facility] NRBC Abs Auto 0.000 0.0 - 0.012 X10*3/uL [facility] 06/21/2024 8:55 AM EDT 06/21/2024 9:02 AM EDT Generic External Data Provider LAB BLOOD ORDERAB LES Final Result Performing Organization Address City/[facility]/ZIP Co de Phone Number [facility] [address] [place] [phone] * Culture, Urine, Routine (06/21/2024 12:00 AM EDT) Urine Urine specimen obtained by clean catch procedure / Unknown 06/21/2024 06/21/2024 Comment:[facility] Narrative [facility] - 06/22/2024 8:40 AM EDT Urine Culture Report Result Urine Culture < 10,000 cfu/ml Specimen Source: Urine clean catch Generic External Data Provider LAB MICROBIOLOGY - GENERAL ORDERABLES Final Result Performing Organization Address City/[facility]/ZIP Co de Phone Number [facility] [address] [place] [phone] * POCT Glucose (06/15/2024 1:40 PM EDT) [facility] Signature Glucose Blood, POC 107 60 - 200 mg/dL QC Media Lot # [id number] Lot# Expiration Date [id number] Blood Capillary blood specimen / Unknown 06/15/2024 1:40 PM EDT us Diamond Lepe MD POINT OF CARE TEST EN TER/EDIT ORDERABLES Final Result * Amylase (05/25/2024 1:51 PM EST) Amylase 77 28 - 100 U/L [facility] Blood Venous blood specimen / Unknown 05/25/2024 1:51 PM EST 05/25/2024 4:03 PM EST us Clara RHODES LAB BLOOD ORDERABLES Final Resul t [facility] [address] [place], [place] [phone] * US Abdomen Complete (05/07/2024 4:28 PM EST) Anatomical Region Laterality Modality Abdomen Ultrasound 05/07/2024 4:28 PM EST Narrative 05/07/2024 4:29 PM EST ? [facility] ?[address] ?[place] [address] ? Ultrasound Report ? Signed ? Patient: Nikolai De Nikhil,Eveline ? MR#: [id number] ? : 1955 ?Acct:[id number] ? Age/Sex: 69 / F ?ADM Date: 05/07/24 ? Loc: HO.US ? Attending Dr: Clara Hightower [employer] OPERATOR ? Ordering Physician: CLARA HIGHTOWER NP ?? Date of Service: 05/07/24 ?? Procedure(s): US abdomen complete ?? Accession Number(s): [id number] ? cc: Diamond Ponce MD; CLARA HIGHTOWER [...] signed by Katalina Coto MD in OV> ?05/07/24 1628 ? DD/ 1628 ? TD/TT: 05/07/248 ? Screw Remover: ? Procedure Note Cara Han - 05/07/2024 [place] [address] Ultrasound Report Signed Patient: Eveline Novoa MR#: [id number] : 4Acct:[id number] Age/Sex: 69 / FADM Date: 05/07/24 Loc: HO.US Attending Dr: Clara Hightower NP Ordering Physician: CLARA HIGHTOWER NP Date of Service: 05/07/24 Procedure(s): US abdomen complete Accession Number(s): [id number] cc: Diamond Ponce MD; CLARA HIGHTOWER NP [...] Coto MD in OV> 05/07/24 1628 DD/ 27 TD/TT: 05/07/241627 Screw Remover: us Clara Hightower ANP IMG US PROCEDURES Edited Result - Final * XR Chest 2 Views (05/06/2024 2:09 PM EST) Anatomical Region Laterality Modality Chest Radiographic Nicky ging 05/06/2024 2:09 PM EST Narrative 05/06/2024 2:52 PM EST ?[facility] ?[address] ?[place] [address] ?XRay Report ? Signed ? Patient: Maribel Novoaanita ? MR#: [id number] ? : 1955 ?Acct:[id number] ? Age/Sex: 69 / F ?ADM Date: 05/06/24 ? Loc: HO.HHCX ? Attending Dr: Doris Dugan DO ? Ordering Physician: Doris Dugan DO ?? Date of Service: 05/06/24 ?? Procedure(s): XR chest 2V ?? Accession Number(s): [id number] ? cc: Jurcsak,Doris A DO ? EXAMINATION: ?? XR CHEST ? [...] DD/ 1409 ? TD/TT: 05/06/24 1420 ? Screw Remover: ? Procedure Note Donotmaria elenainterpreter, Image - 05/06/[address] [address] XRay Report Signed Patient: Eveline Novoa MR#: [id number] : 4Acct:[id number] Age/Sex: 69 / FADM Date: 05/06/24 Loc: HO.HHCX Attending Dr: Doris Dugan DO Ordering Physician: Doris Dugan DO Date of Service: 05/06/24 Procedure(s): XR chest 2V Accession Number(s): [id number] cc: Doris Dugan DO EXAMINATION: XR CHEST [...] 05/06/24 1449 DD/ 1409 TD/TT: 05/06/24 1420 Screw Remover: Doris Dugan DO IMG XR PROCEDURES Final Resu lt * Influenza B (ID NOW Rapid Molecular) (05/06/2024 1:46 PM EST) [facility] Influenza B Negative Negative, Indeterminate [facility] Swab 05/06/2024 1:46 PM EST Doris Dugan DO POINT OF CARE TEST ENTER/TAI T ORDERABLES Final Result Performing Organization Address [facility]/ZIP Co de Phone Number [facility] [address] [place] [phone] * (ABNORMAL) Influenza A (ID NOW Rapid Molecular) (05/06/2024 1:46 PM EST) [facility] Influenza A Positive( A) Negative, Indeterminate [facility] Swab 05/06/2024 1:46 PM EST Doris Dugan DO POINT OF CARE TEST ENTER/TAI T ORDERABLES Final Result Performing Organization Address [facility] Co de Phone Number [facility] [address] [place] [phone] * POCT Rapid COVID Ag (05/06/2024 1:46 PM EST) [facility] Rapid COVID Ag Negative [facility] Swab 05/06/2024 1:46 PM EST Doris Dugan DO POINT OF CARE TEST ENTER/TAI T ORDERABLES Final Result Performing Organization Address [place] [facility] Co de Phone Number [facility] [address] [place] [phone] * POCT rapid strep A manually resulted (05/06/2024 1:46 PM EST) [facility] Rapid Strep A Screen Negative Negative, None Detected [facility] Swab 05/06/2024 1:46 PM EST Doris Dugan DO POINT OF CARE TEST ENTER/TAI T ORDERABLES Final Result Performing Organization Address [facility] Co de Phone Number [facility] [address] [place] [phone] [phone] * (ABNORMAL) Biopsy vaginal (05/04/2024 12:00 AM EST) us Historical Provider MD IN CLINIC/BEDSIDE ORDERAB LES Final Result Performing Organization Address [facility] Co de Phone Number [facility] * Albumin, Random Urine W/Creatinine (03/03/2024 7:57 AM EST) Creatinine, Urine 57.95 mg/dL [facility] Microalbumin Urine <5.0 mg/L [facility] Microalbum Creatinine Ratio Ur TNP <30 ug/mg cr [facility] Comment:Unable to calculate albumin/creatinine ratio due to lowmicroalbumin or creatinine result. Urine (Urine, Random) 03/03/2024 7:57 AM EST 03/03/2024 11:16 AM EST Diamond Lepe MD LAB URINE ORDERABLES Final Result Performing Organization Address [facility] de Phone Number [facility] [address] [place] [phone] * Hepatitis C Antibody with Reflex to HCV, RNA, Quantitative, Real-Time PCR (03/03/2024 7:57 AM EST) Hepatitis C Antibody Nonreactive Nonreactive [facility] Comment:Antibodies to HCV no t detected; does not exclude early acuteHCV infection. Blood Venous blood specimen / Unknown 03/03/2024 7:57 AM EST 03/03/2024 11:18 AM EST Diamond Lepe MD LAB BLOOD ORDERABLES Final Result Performing Organization Address City/[facility]/ZIP Co de Phone Number [facility] [address] [place] [phone] * (ABNORMAL) Hemoglobin A1c (03/03/2024 7:57 AM EST) Hemoglobin A1c 6.4(H) <6.0 % [facility] Comment:Hemoglobin A1C Refer ence Range Adults: 4.8 - 6.0 % Non diabetic: < 6.0 % Goal: < 7.0 %Additional Action Suggested: > 8.0 %Note: Hemoglobin A1c results are invalid for patients with abnormal amounts of HbF. Blood transfusions may impact the HbA1c concentration in the patient sample. Estimated Average Glucose 137 mg/dL [facility] Comment:eAG = Estimated ave rage glucose which is %A1C expressed asaverage glucose, using the formula of the N3K-ZehanhfVaogfpe Glucose study (ADAG), Diabetes Care, Vol.31,#8,2007 Blood Venous blood specimen / Unknown 03/03/2024 7:57 AM EST 03/03/2024 11:17 AM EST us Diamond Lepe MD LAB BLOOD ORDERABLES Final Result Performing Organization Address [facility]/ZIP Co de Phone Number [facility] [address] [place] [phone] * (ABNORMAL) Lipid Panel, Standard (03/03/2024 7:57 AM EST) Triglycerides 73 <150 mg/dL [facility] Comment:Desirable Triglyceri de: less than 150 mg/dLBorderline High Triglyceride 150-199 mg/dLHigh Triglyceride: 200-499 mg/dLVery High Triglyceride: greater than or equal to 5OO mg/dL Cholesterol 242(H) <200 mg/dL [facility] Comment:Desirable Cholestero l: less than 200 mg/dLBorderline High Cholesterol: 200-239 mg/dLHigh Cholesterol: greater than 239 mg/dL LDL Cholesterol Calculated 167(H) <100 mg/dL [facility] Comment:Desirable LDL: less than 100 mg/dLNear Optimal/Above Optimal LDL: 110- 129 mg/dLBorderline High LDL: 130-159 mg/dLHigh LDL: 160-189 mg/dLVery High LDL: greater than or equal to 190 mg/dL HDL Cholesterol 61 >40 mg/dL [facility] Comment:Desirable HDL: great er than 40 mg/dL Note: This HDL assay may give artificially low results in patients with liver disease. Blood Venous blood specimen / Unknown 03/03/2024 7:57 AM EST 03/03/2024 11:18 AM EST us Diamond Lepe MD LAB BLOOD ORDERABLES Final Result [facility] [address] [place] [phone] [phone] * BI Mammogram Screening Tomosynthesis Bilateral (07/14/2023 1:53 PM EDT) Anatomical Region Laterality Modality Breast Bilateral Mammography 07/14/2023 1:53 PM EDT Narrative 08/11/2023 5:10 AM EDT ? [facility] [place] ? [address] ?[place] [phone] ? Mammography Report ? Signed ? Patient: Nikolai St Nikhil,Eveline ? MR#: [id number] ? : 1955 ?Acct:[id number] ? Age/Sex: 68 / F ?ADM Date: 04/22/24 ? Loc: HO.MAMMO ? Attending Dr: Diamond Lepe MD ? Ordering Physician: Diamond Ponce MD ?Results: ?? 1Negative ? Date of Service: 07/14/23 ?Follow Up: 1 Year From Orig ?? inal Mammogram ? Procedure(s): MM tomosynthesis screening BI ?? Accession Number(s): [id number] ? cc: Diamond Ponce MD ? EXAMINATION: [...] by Frannie Davis MD in OV> ? 08/11/23506 ? DD/ 52 ? TD/TT: ? Screw Remover: ? Procedure Note Guille, Image - 08/11/2023 [facility] [address] [place] [address] Mammography Report Signed Patient: Eveline Novoa MR#: [id number] : 4Acct:[id number] Age/Sex: 68 / FADM Date: 07/14/23 Loc: HO.MAMMO Attending Dr: Diamond Lepe MD Ordering Physician: Diamond Ponce MDResults: 1Negative Date of Service: 07/14/23Follow Up: 1 Year From Orig inal Mammogram Procedure(s): MM tomosynthesis screening BI Accession Number(s): [id number] cc: Diamond Ponce MD EXAMINATION: MM SCREENING [...] in OV> 08/11/23 0507 DD/ 1353 TD/TT: Screw Remover: Diamond Lepe MD IMG BI PROCEDURES Tai ta Result - Final * (ABNORMAL) HPV mRNA E6/E7 (12/02/2018 3:30 PM EDT) HPV mRNA E6/E7 DETECTED (AA) NOT DETECTED [facility] Comment: This test was performed using the APTIMA(R) HPV Assay ([employer] This assay detects E6/E7 viral messenger RNA (mRNA) from 14 high-risk HPV types (16,18,31,33,35,39,45,51, 52,56,58,59,66,68). For additional information please refer to: http://education.Lab4U/faq/SWS455k4 (This link is being provided for informational/ educational purposes only.) The analytical performance characteristics of this assay have been determined by [employer] [place], [place]. The modifications have not been cleared or approved by the FDA. This assay has been validated pursuant to the CLIA regulations and is used for clinical purposes. Test Performed by [employer], [place] [facility], [address] [place] [address] Justyn Nettles M.D., Ph.D., Director of Laboratories , CLIA [id number] Please note: ??Effective 12/04/2015, HPV testing will be performed using [employer]'s APTIMA test which targets mRNA. Detecting mRNA instead of DNA, as in older methods, offers significant improvements in specificity. 12/02/2018 3:30 PM EDT Leonarda Mancera CNM HISTORICAL/NON ORDERABLE LABS Final Result [facility] Critical access hospital Anywhere [address] * Hm Colonoscopy (06/16/2013) Historical Provider MD HEALTH MAINTENANCE Final Result from Last 3 Months or Most Recently Relevant to Health Maintenance Insurance [address] [place] [phone] [facility], [facility] OPT[facility] (HMO D-SNP) DENTAL - [facility] Care Teams Color Drum Worker Relationship Specialty Start Date End Date Diamond Ponce MD [address] [place] [phone] PCP - General Family Medicine 07/01/19
--- OUTSIDE RECORDS SUMMARY | 2024-07-19 15:52 | XMS_ITS | Encounter Summary ---
Author Organization [employer] Address [address] [facility] 7t [place] [address] Care Team Providers Care Home Performance Laborer Name Role Phone Diamond Ponce MD Primary Care Provide r Reason for Visit * Reason Onset Date Comments Prior Authorization 03/04/2023 Encounter Details Date Type Department Care Team ([facility] st Contact Info) Description 03/04/2023 Telephone [facility] [address] [place] [address] Aron No DDS [address] [place] [address] Prior Authorization Social History Tobacco Use Types [...] CCA covers it without needing a PA. documented in this encounter Plan of Treatment Upcoming Encounters Date Type Department Care Team (Late st Contact Info) Description 08/12/2024 3:00 PM EDT Office Visit [facility] [address] [place] [address] Tiffanie Hilario DDS [address] [place] [address] documented as of this encounter Visit Diagnoses Not on filedocumented in this encounter Additional Health Concerns Assessment Noted Time PHQ-9 Depression Total Score: 0 04/24/19 23 2:26 PM EST documented as of this encounter Care Teams Home Performance Laborer Relationship Specialty Start Date End Date Diamond Ponce MD [address] [place] [address] PCP - General Family Medicine 07/01/19 documented as of this encounter
--- OUTSIDE RECORDS SUMMARY | 2024-07-19 15:52 | XMS_ITS | Encounter Summary ---
Author Organization [employer] Address [address] [facility] [address]t [place] [address] Care Team Providers Care Mechanics Supervisor Name Role Phone Diamond Ponce MD Primary Care Provide r Reason for Visit * Reason Onset Date Comments Med Refill 04/23/2022 Encounter Details Date Type Department Care Team ([facility] st Contact Info) Description 04/23/2022 Telephone [facility] [address] [place] [address] Diamond Ponce MD [address] [place] [address] Med Refill Social History Tobacco Use Types [...] the past. * Telephone Encounter - Joe Greenos - 04/23/2022 3:51 PM EST Tc from pt requesting med refill Artificial tears documented in this encounter Plan of Treatment Upcoming Encounters Date Type Department Care Team (Late st Contact Info) Description 08/12/2024 3:00 PM EDT Office Visit [facility] [address] [place], [place] [phone] Tiffanie Hilario DDS [address] [place] [address] documented as of this encounter Visit Diagnoses Not on filedocumented in this encounter Care Teams Mechanics Supervisor Relationship Specialty Start Date End Date Diamond Ponce MD [address] [place], [place] [phone] PCP - General Family Medicine 07/01/19 documented as of this encounter
--- OUTSIDE RECORDS SUMMARY | 2024-07-19 15:53 | XMS_ITS | Encounter Summary ---
Author Organization [employer] [facility] Address [address] [facility] [address] [place] [address] Care Team Providers Care Phone Technician Name Role Phone Diamond Ponce MD Primary Care Provide r Encounter Details Date Type Department Care Team (Late st Contact Info) Description 12/11/2022 Orders Only [facility] [address] [place] [phone] Provider, Historical, Social History Tobacco Use Types [...] Description 08/12/2024 3:00 PM EDT Office Visit [facility] [address] [place] [address] Trujillo-AguayoWood snydermia, DDS [address] [place], [place] [phone] documented as of this encounter Procedures Procedure [...] documented as of this encounter Care Teams Phone Technician Relationship Specialty Start Date End Date Diamond Ponce MD [address] [place] [address] PCP - General Family Medicine 07/01/19 documented as of this encounter
--- OUTSIDE RECORDS SUMMARY | 2024-07-19 15:53 | XMS_ITS | Encounter Summary ---
Author Organization [employer] Address [address] [facility] 7t [place] [address] Care Team Providers Care Hvac Installer Name Role Phone Diamond Ponce MD Primary Care Provide r Encounter Details Date Type Department Care Team (Late st Contact Info) Description 06/29/2024 Orders Only [facility] [address] [place], [place] [phone] Carla Mckeon Social History Tobacco Use Types [...] Description 08/12/2024 3:00 PM EDT Office Visit [facility] [address] [place], [place] [phone] TrujilloTiffanie Soliman, DDS [address] [place], [place] [phone] documented as of this encounter Procedures Procedure Name Priority Date/Time Associated Diagnosis Comments BIOPSY VAGINAL Routine 05/04/2024 12:00 AM EST documented in this encounter Results * (ABNORMAL) Biopsy vaginal (05/04/2024 12:00 AM EST) us Historical Provider IN CLINIC/BEDSIDE ORDERAB LES Final Result [facility] documented in this encounter Visit Diagnoses Not on filedocumented in this encounter Additional Health Concerns Assessment Noted Time PHQ-9 Depression Total Score: 0 05/23/19 24 1:38 PM EST documented as of this encounter Care Teams Hvac Installer Relationship Specialty Start Date End Date Diamond Ponce MD [address] [place] [address] PCP - General Family Medicine 07/01/19 documented as of this encounter
--- OUTSIDE RECORDS SUMMARY | 2024-07-19 15:53 | XMS_ITS | Encounter Summary ---
Author Organization [employer] Address [address] [facility] 7t [place] [address] Care Team Providers Care Ruling Machine Set Up Operator Name Role Phone Diamond Ponce MD Primary Care Provide r Encounter Details Date Type Department Care Team (Late st Contact Info) Description 07/14/2024 2:30 PM EDT Office Visit [facility] [address] [place] [address] Aron No DDS [address] [place], [place] [phone] Fractured dental worship with loss of material (Primary Dx) Social History Tobacco Use Types [...] AM EDT documented as of this encounter Progress Notes * Aron No DDS - 07/14/2024 2:30 PM EDT Dental procedures in this visit D0140 - LIMITED ORAL EVALUATION - PROBLEM FOCUSED (Completed) Service provider: Aron No DDS Billing provider: Aron No DDS D9450 - CASE PRESENTATION, DETAILED AND EXTENSIVE TREATMENT PLANNING (Completed) Service provider: Aron No DDS Billing provider: Aron No DDS D0220 - INTRAORAL - PERIAPICAL FIRST RADIOGRAPHIC IMAGE (Completed) Service provider: Aron No DDS Billing provider: Aron No DDS Patient ID: Eveline Do is a 69 y.o. female. Time Out: Timeout Date: 07/14/24, Timeout Time: 1439 Location: [facility] Tooth: Maxilla and #9 Procedure: X-rays and Emergency Verified the above with patient, clinical medical assistant, and provider. Confirmed via patient's chart, intraorally and by radiographs. Visual Effects Artist: not applicable No chief complaint on file. Medical Hx: Vitals: There were no vitals taken for this visit. Past Medical History: Diagnosis Date Amblyopia Amblyopia, bilateral Cataract Closed fracture of transverse process of lumbar vertebra, initial encounter ([facility]) Dementia ([facility]) Diabetes mellitus ([facility]) Drusen (degenerative) of retina, bilateral Hypercholesteremia Hypertension Lumbar radiculopathy Sciatica, right side Medications: Outpatient Encounter Medications as of 07/14/2024 Medication Sig Dispense Refill acetaminophen (Tylenol) 500 MG tablet Take 2 tablets (1,000 mg) by mouth every 6 (six) hours if needed for moderate pain or fever for up to 25 doses. 50 tablet 0 albuterol 108 (90 Base) MCG/ACT inhaler Inhale 2 puffs every 4 (four) hours if needed for wheezing or shortness of breath. 18 g 0 alendronate (Fosamax) 70 MG tablet take 1 tablet by mouth once a week with 6 to 8 oz of water 30 min before first food of day. do not lie down for 30 minutes 12 tablet 0 atorvastatin (Lipitor) 40 MG tablet TAKE 1 TABLET BY MOUTH ONCE DAILY 90 tablet 1 carboxymethylcellulose (Artificial Tears) 1 % ophthalmic solution Administer 1 drop into both eyes 3 times daily. 15 mL 3 cetirizine (ZyrTEC) 10 MG tablet Take 1 tablet (10 mg) by mouth Once per day. 90 tablet 1 cholecalciferol (Vitamin D-3) 50 MCG (2000 UT) capsule Take 1 capsule by mouth daily 30 capsule 11 Diclofenac Sodium 1 % gel APPLY [...] nostril Once per day. 16 g 3 FT ClearLax 17 GM/SCOOP powder Take 17 g by mouth Once per day. glucose blood (FREESTYLE LITE) test strip 1 each by Other route every 12 (twelve) hours. 100 each 2 ibuprofen 800 MG tablet Take 1 tablet by mouth every 6 (six) hours if needed for mild pain. lidocaine (Lidoderm) 5 % patch Apply 1 patch topically Once per day. Remove & discard patch within 12 hours or as directed by MD. May use 2 patches at once. 60 patch 2 Linzess 290 MCG capsule TAKE 1 CAPSULE BY MOUTH EVERY MORNING WITH A FULL GLASS OF WATER magnesium gluconate 250 MG tablet Take 1 tablet by mouth Once per day. Melatonin 3 MG capsule take one at bed time [place]-3 Fatty Acids (OMEGA 3 500 PO) 1 tablet by mouth every other day Simethicone Ultra Strength 180 MG capsule TAKE 1 CAPSULE BY MOUTH TWICE DAILY AFTER MEALS 60 capsule 0 Spacer/Aero-Holding Chambers (AeroChamber Mini Chamber) device Use with albuterol MDI as needed 1 each 0 triamcinolone (Kenalog) 0.1 % cream Apply topically if needed in the morning and at bedtime (pain and swelling). 30 g 1 TRUEplus Lancets 33G misc TEST BLOOD SUGAR TWICE DAILY DIRECTED No facility-administered encounter medications on file as of 07/14/2024. Subjective: Pain: NO Duration: N/A Objective: Tooth: #9 Radiographs Taken: BW(s) Radiographic Findings: Fractured/Broken Tooth and Fractured/Missing Filling Clinical Findings: Fractured worship with loss of material Swelling: NO Endo Testing: NO Perio: BOP Other Findings: Due for MICHA and FMX . Potential for multiple crowns (# 8,9 &10) Diagnosis: Fractured worship Assessment/Plan: ALIREZA X ray Internal referral for crowns Prescriptions: No Pt tolerated procedure well, all questions answered. Dismissed in good condition. NV: Crowns consultation / Dr Aguayo Claim Benefit Specialist: Clara Davis Dentist: Aron No DDS documented in this encounter Plan of Treatment Upcoming Encounters Date Type Department Care Team (Late st Contact Info) Description 08/12/2024 3:00 PM EDT Office Visit [facility] [address] [place] [address] Tiffanie Hilario DDS [address] [place] [address] Scheduled Orders Name Type Priority Associated Diagnoses Orde r Schedule CONSULTATION - DIAGNOSTIC SERVICE PROVIDED BY DENTIST OR PHYSICIAN OTHER THAN REQUESTING DENTIST OR PHYSICIAN Dental Routine 1 Occurrenc es starting 07/14/2024 documented as of this encounter Procedures Procedure Name Priority Date/Time Associated Diagnosis Comments LIMITED ORAL EVALUATION - PROBLEM FOCUSED Routine 07/14/2024 2:30 PM EDT INTRAORAL - PERIAPICAL FIRST RADIOGRAPHIC IMAGE Routine 07/14/2024 2:30 PM EDT CASE PRESENTATION, DETAILED AND EXTENSIVE TREATMENT PLANNING Routine 07/14/2024 2:30 PM EDT documented in this encounter Visit Diagnoses Diagnosis Fractured dental worship with loss of material- Primary Fractured dental restorative material with loss of material documented in this encounter Additional Health Concerns Assessment Noted Time PHQ-9 Depression Total Score: 0 05/23/19 24 1:38 PM EST documented as of this encounter Care Teams Ruling Machine Set Up Operator Relationship Specialty Start Date End Date Diamond Ponce MD [address] [place] [phone] PCP - General Family Medicine 07/01/19 documented as of this encounter
--- OUTSIDE RECORDS SUMMARY | 2024-07-19 15:53 | XMS_ITS | Encounter Summary ---
Author Organization [email or web address] [facility] Address [address] [facility] 7t [place] [address] Care Team Providers Care Kraft Mill Operator Name Role Phone Diamond Ponce MD Primary Care Provide r Encounter Details Date Type Department Care Team (Latest Contact Info) Description 12/12/2020 Abstract [facility] CONVERSIONS Dental, Provider, DDS Social [...] Description 08/12/2024 3:00 PM EDT Office Visit [facility] [address] [place] [address] Trujillo-Aguayo, Tiffanie, DDS [address] [place] [address] documented as of this encounter Visit Diagnoses Not on filedocumented in this encounter Care Teams Kraft Mill Operator Relationship Specialty Start Date End Date Diamond Ponce MD [address] [place] [address] PCP - General Family Medicine 07/01/19 documented as of this encounter
--- OUTSIDE RECORDS SUMMARY | 2024-07-19 15:53 | XMS_ITS | Encounter Summary ---
Author Organization [employer] [facility] Address [address] [facility] 7t [place] [address] Care Team Providers Care Commercial Lawn Specialist Name Role Phone Diamond Ponce MD Primary Care Provide r Encounter Details Date Type Department Care Team (Late st Contact Info) Description 03/29/2022 [facility] Health Information Management [address] [place] [address] Diamond Ponce MD [address] [place] [address] Social History Tobacco Use Types Packs/Day Years [...] Description 08/12/2024 3:00 PM EDT Office Visit [facility] [address] [place] [address] Tiffanie Hilario, DDS [address] [place] [address] documented as of this encounter Visit Diagnoses Not on filedocumented in this encounter Care Teams Commercial Lawn Specialist Relationship Specialty Start Date End Date Diamond Ponce MD [address] [place] [address] PCP - General Family Medicine 07/01/19 documented as of this encounter
--- OUTSIDE RECORDS SUMMARY | 2024-07-19 15:53 | XMS_ITS | Encounter Summary ---
Author Organization [employer] Address [address] [facility] 7t [place] [address] Care Team Providers Care Rn Oncology Research Name Role Phone Diamond Ponce MD Primary Care Provide r Reason for Visit * Reason Onset Date Comments Medication Question 07/14/2024 Encounter Details Date Type Department Care Team ([facility] st Contact Info) Description 07/14/[address] [facility] [address] [place] [address] Diamond Ponce MD [address] [place] [address] Type 2 diabetes mellitus without complication, without long-term current use of insulin ([facility]) Social History Tobacco Use Types Packs/Day Years [...] as of this encounter Miscellaneous Notes * Addendum Note - John Ahumada RN - 07/14/2024 3:09 PM EDTAddended by: JOHN AHUMADA on: 07/14/2024 03:09 PM Modules accepted: Orders * Telephone Encounter - John Ahumada RN - 07/14/2024 3:07 PM EDT Meter pended, last meter sent >3 years ago * Telephone Encounter - Jolanta Churchill - 07/14/2024 2:58 PM EDT PT walked in requesting a refill for Freestyle Frdm Lt Glucose Meter PT has had one before for many years and it is no longer working. Went down to pharmacy and was advised to get new script. documented in this encounter Plan of Treatment Upcoming Encounters Date Type Department Care Team (Late st Contact Info) Description 08/12/2024 3:00 PM EDT Office Visit [facility] [address] [place] [address] Tiffanie Hilario, DDS [address] [place] [address] documented as of this encounter Visit Diagnoses Diagnosis Type 2 diabetes mellitus without complication, without long-term current use of insulin ([facility]) documented in this encounter Additional Health Concerns Assessment Noted Time PHQ-9 Depression Total Score: 0 05/23/19 24 1:38 PM EST documented as of this encounter Care Teams Rn Oncology Research Relationship Specialty Start Date End Date Diamond Ponce MD [address] [place] [address] PCP - General Family Medicine 07/01/19 documented as of this encounter
== END 2024-07-19 13:22 | disposition home or self-care (01) ==
LOC: HO.MAMMO 13:21
PROVIDERS: Absent Provider Obstetrics & Gynecology; PCP Internal Medicine; Visit Provider Internal Medicine
DX: Z12.31 Encounter for screening mammogram for malignant neoplasm of breast (principal)
CPT/HCPCS: 77063; 77067

== ENCOUNTER → 2024-07-19 13:30 | Outpatient (BNV) | payer OTHER, SELFPAY | PROVIDERS: Absent Provider Obstetrics & Gynecology; PCP Internal Medicine; Visit Provider Internal Medicine | DX: Z12.31 Encounter for screening mammogram for malignant neoplasm of breast (principal) | CPT/HCPCS: 77063; 77067 ==

== ENCOUNTER 2024-08-02 11:13 | Emergency (ER) | payer OTHER, SELFPAY ==
--- NOTE | 2024-08-02 | ECG_ITS ---
Test Reason : cp Blood Pressure : */* mmHG Vent. Rate : 60 BPM Atrial Rate : 60 BPM P-R Int : 142 ms QRS Dur : 80 ms QT Int : 430 ms P-R-T Axes : 34 28 36 degrees QTcB Int : 430 ms Normal sinus rhythm Normal ECG When compared with ECG of 19-Apr-2024 14:52, No significant change was found Referred By: Generic ED Physician Electronically Signed By: LEIA ARMSTRONG MD
--- NOTE | ~2024-08-02 | XR_ITS ---
EXAMINATION: XR RIBS, LEFT CLINICAL INFORMATION: pain COMPARISON: May 06, 2024. TECHNIQUE: 3 views of the left ribs were obtained. FINDINGS: No consolidation, pleural effusion or pneumothorax. Cardiomediastinal silhouette is enlarged. Calcified plaque thoracic aortic arch. No acute cortical disruption within the ribs of the left hemithorax. Multilevel thoracolumbar spondylosis, mild to moderate. Degenerative changes in the right greater than left shoulders. Patient's large body habitus. XR/XR ribs LT min 3V w CXR1V IMPRESSION: No acute airspace disease. No acute rib fracture, left hemithorax. Cardiomegaly versus hypertensive cardiomyopathy. Electronically signed by: Lamonte Curtis MD 08/02/2024 12:05 PM EDT
[2024-08-02 11:28] VITALS: BP 171/81; PULSE 66; RESP 18; TEMP 36.4; O2SAT 98; BMI 29.2
--- NOTE | 2024-08-02 11:36 | ED.CHESTPAIN ---
HPI - Chest Pain General Chief Complaint: Chest Pain Stated Complaint: LUQ L Lower Chest Pain Time Seen by Provider: 08/02/24 12:34 Source: patient Mode of arrival: ambulatory Limitations: no limitations History of Present Illness ED Provider: Dr. Mares HPI narrative: 69 year old female PMH: back pain dementia constipation, chronic pain, GERD, migraine, DM2 who presents to the ER for chest pain. She stats she has left sided rib pain and is adamant that it is here ribs. She denies cough fever nausea vomiting or diarrhea. Seen at urgent care and sent here seen in triage and had X rand labs ordered. Related Data Home Medications ?Medication ?Instructions ?Recorded ?Confirmed baclofen 20 mg tablet 1 tab PO TID 10/26/21 07/07/24 ibuprofen 800 mg tablet 1 tab PO TID PRN Pain 10/26/21 07/07/24 blood sugar diagnostic (FreeStyle #10 ea 01/15/22 Lite Strips) cetirizine 10 mg tablet 10 mg PO DAILY 01/15/22 07/07/24 diclofenac sodium 1 % topical gel 2 g topical QID muscle pain 01/15/22 07/07/24 lancets 33 gauge (TRUEplus Lancets) #100 ea 01/15/22 Previous Rx's ?Medication ?Instructions ?Recorded bisacodyl 5 mg tablet,delayed 10 mg (2 x 5 mg) PO BEDTIME 2 days 01/02/24 release (Dulcolax (bisacodyl)) #4 tabs polyethylene glycol 3350 17 17 g PO DAILY #510 grams 06/21/24 gram/dose oral powder (Miralax) linaclotide 290 mcg capsule 290 mcg PO QAM 30 days #30 caps 06/29/24 (Linzess) prednisone 20 mg tablet 60 mg (3 x 20 mg) PO DAILY Asthma 08/02/24 5 days #15 tabs Allergies Allergy/AdvReac Type Severity Reaction Status Date / Time tramadol Allergy Severe Hallucinati Verified 08/02/24 11:32 ons morphine Allergy Intermediate Hallucinati Verified 08/02/24 11:32 ons Review of Systems Review of Systems: Review of systems: General: Patient denies any fever chills recent illness or falls Musculoskeletal: Denies back pain or body aches or other injuries HEENT: denies headache, runny nose, ear pain Respiratory: denies shortness of breath, cough Cardiovascular: left sided chest pain or palpitations : denies dysuria, frequency Abdomen: no nausea vomiting denies abdominal pain Extremities: no swelling, no pain Skin: no diaphoresis Yes all other systems are reviewed and are negative PMFSH Past Medical History Medical History (Updated 08/02/24 @ 13:54 by Leonard Mares DO) COVID-19 Pre-op examination Diabetes type 2, controlled High cholesterol Surgical History H/O colonoscopy H/O: hysterectomy H/O section Social History Social History Alcohol intake: never Patient Tobacco Use Status: Never used Tobacco Smoked in Last 30 Days: No Use of substances other than those prescribed or required for medical reasons: No Advance Directives: Yes Advance Directives on File: Yes Advance Directives Date on File: 10/26/21 Do you have a plan to hurt others: No Plan Current occupation: [employer] Physical Exam Vital Signs: Vital Signs: Last Vital Signs Temp 97.6 F 08/02/24 11:28 Pulse 72 08/02/24 13:14 Resp 16 08/02/24 13:14 BP 166/88 H 08/02/24 13:14 Pulse Ox 98 08/02/24 13:14 O2 Del Method Room Air 08/02/24 13:14 BMI result Body Mass Index 29.2 General: Well-appearing well-nourished in no signs of distress HEENT: Normocephalic atraumatic Neck: No signs of JVD, no masses no tenderness or lymphadenopathy Cardiovascular: Regular rate and rhythm no rash but pain is reproducible on exam Respiratory: Clear to auscultation bilaterally Abdomen: Soft nontender no masses Extremities: Normal pedal pulses no signs of edema Skin: Dry warm no rashes Back: No tenderness full ROM Course Course Course Narrative: RME, this is a rapid medical exam performed by [place] Thrasher please refer to primary provider for complete H&P- 69-year-old female presents for evaluation of left upper abdominal pain/rib pain. Symptoms started a couple of days ago. She went to urgent care and was referred to the ER. Plan for labs, EKG and chest x-ray. The patient is adamant that it is her ribs not my chest. Denies any specific injury Reevaluation(s) Reevaluation #1: X-ray and labs are all normal patient looks well this does not appear to be ACS patient has a symptoms days I will send the patient home on prednisone lidocaine Tylenol have the patient follow up with her doctor. Medications Administered Discontinued Medications Generic Name Dose Route Start Last Admin Trade Name Juana PRN Reason Stop Dose Admin Acetaminophen 650 mg 08/02/24 12:46 08/02/24 13:12 Acetaminophen 325 Mg Tablet PO 08/02/24 12:47 650 mg ONCE ONE Administration Ketorolac Tromethamine 15 mg 08/02/24 12:46 08/02/24 13:12 Ketorolac Tromethamine 30 Mg/Ml Vial IM 08/02/24 12:47 15 mg ONCE ONE Administration Lidocaine 1 patch 08/02/24 12:46 08/02/24 13:13 Lidocaine 4 % Patch Adh..Patch TRANSDERMA 08/02/24 12:47 1 patch ONCE ONE Administration Protocol Medical Decision Making Medical Decision Making MDM Narrative: We will get Xr and labs for ACS/ Differential Diagnosis Differential Diagnoses: The differential diagnosis associated with the presentation includes chest pain vs rib pain PE and ACS are on the differential but less likely not hypoxic tachyardic and story is not exertional likely musculoskeletal Lab Data [facility] Lab Attestation statement: I reviewed the patient's lab results. 08/02/24 12:38 08/02/24 12:38 Labs: Lab Results 08/02/24 Range/Units 12:38 WBC 5.9 (4.8-10.8) X10*3/uL RBC 4.43 (4.20-5.50) X10*6/uL Hgb 14.4 (12.0-16.0) g/dl Hct 42.1 (37.0-47.0) % MCV 95.0 (80.0-98.0) fL MCH 32.5 (27.0-33.0) pg MCHC 34.2 (31.0-35.0) g/dl RDW 11.7 (11.0-16.0) % Plt Count 255 (160-400) X10*3/uL MPV 9.7 (9.4-12.3) fL Immature Gran % (Auto) 0.3 (0.0-0.4) % Neut % (Auto) 68.8 (45-73) % Lymph % (Auto) 20.9 (20-40) % Hudson % (Auto) 7.0 (2-11) % Eos % (Auto) 2.7 (0-4) % Baso % (Auto) 0.3 (0-2) % Lymph # (Auto) 1.2 (1.2-4.9) X10*3/uL Hudson # (Auto) 0.4 (0.1-1.2) X10*3/uL Eos # (Auto) 0.2 (0.0-0.4) X10*3/uL Baso # (Auto) 0.0 (0.0-0.2) X10*3/uL Abs Immat Gran (auto) 0.02 (0.00-0.03) X10*3/uL Absolute Neuts (auto) 4.0 (2.0-8.3) x10*3/uL Absolute Nucleated RBC 0.000 (0.0-0.012) X10*3/uL Nucleated RBC % (auto) 0.0 (0.0-0.2) /100WBC Sodium 138 (135-145) mmol/L Potassium 4.7 (3.3-5.1) mmol/L Chloride 105 (96-108) mmol/L Carbon Dioxide 23 (22-29) mmol/L Anion Gap 15 (12-20) BUN 19 H (9-16) mg/dL Creatinine 0.76 (0.5-1.4) mg/dL Estim Creat Clear Calc 56.6 Estimated GFR > 60 Random Glucose 140 H (60-115) mg/dL Calcium 9.5 (8.4-10.2) mg/dL Total Bilirubin 0.6 (0.0-1.0) mg/dL AST 37 H (5-31) U/L ALT 18 (0-31) U/L Troponin I High Sens < 2.7 (<3.5-17.0) ng/L Total Protein 7.5 (6.5-8.0) g/dL Albumin 4.1 (3.5-5.0) g/dL Lipase 22 (8-78) U/L Independent Interpretation I performed an independent interpretation of an: EKG and Plain X-Ray External Record Review External record reviewed: Inpatient record and Office record Discharge Plan Discharge Clinical Impression: Acute chest wall pain Patient Disposition: Home, Self-Care Instructions: Chest Wall Pain (ED) Additional Instructions: You were seen today for chest wall pain You had XR and labs done which were all negative. Please call to followup with your doctor. Prescriptions: New prednisone 20 mg tablet 60 mg PO DAILY 5 Days Qty: 15 0RF No Action ibuprofen 800 mg tablet 1 tab PO TID PRN (Reason: Pain) baclofen 20 mg tablet 1 tab PO TID polyethylene glycol 3350 [Miralax] 17 gram/dose powder 17 g PO DAILY Qty: 510 0RF cetirizine 10 mg tablet 10 mg PO DAILY (DME) lancets [TRUEplus Lancets] 33 gauge misc See Rx Instructions .ROUTE BID Qty: 100 Rx Instructions: As directed (DME) FreeStyle Lite Strips Strip See Rx Instructions .ROUTE BID Qty: 10 Rx Instructions: As directed diclofenac sodium 1 % gel 2 g topical QID bisacodyl [Dulcolax (bisacodyl)] 5 mg tablet,delayed release (DR/EC) 10 mg PO BEDTIME 2 Days Qty: 4 0RF Linzess 290 mcg capsule 290 mcg PO QAM 30 Days Qty: 30 6RF Rx Instructions: Take 1st thing in the morning with a full glass of water Print Language: Other
[2024-08-02 12:43] LABS: MANUAL DIFF FLAG NO
[2024-08-02 12:45] LABS: Basophils Percent Auto 0.3 % (0-2); Eosinophils Absolute Auto 0.2 X10*3/uL (0.0-0.4); Eosinophils Percent Auto 2.7 % (0-4); Hematocrit 42.1 % (37.0-47.0); Hemoglobin 14.4 g/dl (12.0-16.0); Imm Gran Abs Auto 0.02 X10*3/uL (0.00-0.03); Imm Gran Pct Auto 0.3 % (0.0-0.4); Lymphocytes Absolute Auto 1.2 X10*3/uL (1.2-4.9); Lymphocytes Percent Auto 20.9 % (20-40); Mean Corpuscular HGB Conc 34.2 g/dl (31.0-35.0); Mean Corpuscular Hemoglobin 32.5 pg (27.0-33.0); Mean Platelet Volume 9.7 fL (9.4-12.3); Monocytes Absolute Auto 0.4 X10*3/uL (0.1-1.2); Neutrophils Percent Auto 68.8 % (45-73); Platelet Count 255 X10*3/uL (160-400); Red Blood Count 4.43 X10*6/uL (4.20-5.50); Red Cell Distribution Width 11.7 % (11.0-16.0); White Blood Count 5.9 X10*3/uL (4.8-10.8)
--- OUTSIDE RECORDS SUMMARY | 2024-08-02 13:00 | XMS_ITS | Data Portability ---
Author Organization [employer] [employer] Address [address] [place] [address] Care Team Providers Care Vallez Filter Operator Name Role Phone HIM CCA OTHER Assessment Encounter Date Assessment Date Assessment LastModified by Organization Details LastModified Time 06/24/2024 06/24/2024 I have reviewed and agree with the assessment and plan as documented by the home energy auditor. I provided real time medical direction for this encounter and was immediately available to provide additional phone based assistance as needed. History as noted by home energy auditor. Pt with history of chronic pain, dementia, HTN, HLD, DM2, LBP w/sciatica. Pt speaks only [place], history and evaluation done with home energy auditor with help of tool and production planner. Recent urgent care visit note from 06/23 [...] Orders ibuprofen 600 mg tablet 2024 025 [facility], [address] [place] [address], [id number], 10:34:32 lidocaine 4 % topical patch 2024 025 [facility], [address] [place] [address], [id number], 15:49:38 ketorolac 60 mg/2 mL intramuscul ar solution 2024 025 btils Not available 14:33:58 Patient TargetsNo targets recorded. Patient InstructionsNo instructions recorded. Reason for Referral None Reported. Medical Equipment None Reported. Allergies Allergen ID Allergen Name Allergen Category Reaction Reaction Severity Criticality Documentation Date Start Date Code Code System Note Provider Name and Address Organization Details Recorded Time 09783 morphine medicatio n Not available Not available Not available 06/24/2024 7052 RxNorm Not Available [facility] 10:43:27 54623 tramadol medicatio n Not available Not available Not available 06/24/2024 98814 RxNorm Not Available [facility] production 10:43:27 [...] SNOMED-CT Code Diagnosis ICD10 Code Diagnosis Note [id number] Efren Johnston MD Main - [facility] [address] [place] [phone] 06/24/2024 14:19:25 06/24/2024 15:40:43 Closed fracture lumbar vertebra [id number] S32.008D Health Concerns Section Related Observation LastModified by Organization Detai ls LastModified Time None Recorded Concern Status LastModified by Organization Details LastModified Time None Recorded Advance Directives Directive None Recorded Payers Insurance Date Sequence Insurance Name Policy Number Policy Bae Covered Member ID Bae Member ID Guarantor Name 06/24/2024 1 [facility] - DOS ON OR AFTER 2022 - DUAL ELIGIBLE - JAIL OPTIONS AND ONE CARE (MEDICARE REPLACEMENT/AD VANTAGE - HMO) Eveline Herrera [id number] Eveline Herrera Notes Date Note Type Note Provider Name and Address Organization Details Recorded Time 06/24/2024 text/html This was a supervised home visit with home energy auditor Rishi Heard. HPI: She fell on 06/21 [...] ................... ................... ................... ................... ................... ................... ........ Payroll Manager Note From Rishi Heard: [facility] dispatched to the address listed above for the report of a female constitution party with back pain. Arrival on scene, patient was found inside apartment with family seated in chair, alert and oriented x4, patent airway, breathing non labored speaking in complete sentences, skin WPD in no immediate distress. +/= Chest rise. -SOB, -CP, -NVD, -Trauma, -Fever. GCS 15. Lung sounds clear in all morales. [facility] noted patient is [place] speaking only and daughter translated for [facility]. Patient reports that she had a mechanical [...] urinating. Patient vital signs obtained as noted. [facility] consulted, provided orders for 30mg Toradol IM and advised that he would send prescription for Ibuprofen and Lidocaine patch to patient preferred pharmacy. 30mg Toradol IM administered in left deltoid without incident, patient rights verified. Red flags discussed with patient and advised to call 911 if condition worsens. [facility] clear. [facility] Medication Orders: ketorolac 60 mg/2 mL intramuscular solution: Administered ................... ................... ................... ................... ................... ................... ................... ........ [facility] Consulted: Efren Johnston ................... ................... ................... ................... ................... ................... ................... ........ Disposition: Fulfilled Efren Johnston MD [address] [place] [address],[address] [facility], [place], [phone], [facility] 06/24/2024 15:32:16 OBGyn Episode No OBEpisode recorded.
--- OUTSIDE RECORDS SUMMARY | 2024-08-02 13:00 | XMS_ITS | Encounter Summary ---
Author Organization [employer] Address [address] [facility] [address] [place] [address] Care Team Providers Care Field Artillery Senior Sergeant Name Role Phone Diamond Ponce MD Primary Care Provide r Encounter Details Date Type Department Care Team (Late st Contact Info) Description 08/02/2024 Orders Only GENERIC EXTERNAL DATA DEPARTMENT Provider, Generic External Data Social History Tobacco Use Types Packs/Day Years [...] Description 08/12/2024 3:00 PM EDT Office Visit [facility] [address] [place] [address] TrujilloTiffanie Soliman, DDS [address] [place] [address] documented as of this encounter Procedures Procedure Name Priority Date/Time Associated Diagnosis Comments CBC WITH AUTO DIFFERENTIAL Routine 08/02/2024 12:38 PM EDT documented in this encounter Results * CBC auto differential (08/02/2024 12:38 PM EDT) White Blood Count 5.9 4.8 - 10.8 X10*3/uL [facility] Red Blood Count 4.43 4.20 - 5.50 X10*6/uL [facility] Hemoglobin 14.4 12.0 - 16.0 g/dl [facility] Hematocrit 42.1 37.0 - 47.0 % [facility] Mean Corpuscular Volume 95.0 80.0 - 98.0 fL [facility] Mean Corpuscular Hemoglobin 32.5 27.0 - 33.0 pg [facility] Mean Corpuscular HGB Conc 34.2 31.0 - 35.0 g/dl [facility] Red Cell Distribution Width 11.7 11.0 - 16.0 % [facility] Platelet Count 255 160 - 400 X10*3/uL [facility] Mean Platelet Volume 9.7 9.4 - 12.3 fL [facility] Neutrophils Percent Auto 68.8 45 - 73 % [facility] Imm Gran Pct Auto 0.3 0.0 - 0.4 % [facility] Lymphocytes Percent Auto 20.9 20 - 40 % [facility] Monocytes Percent Auto 7.0 2 - 11 % [facility] Eosinophils Percent Auto 2.7 0 - 4 % [facility] Basophils Percent Auto 0.3 0 - 2 % [facility] NRBC Pct Auto 0.0 0.0 - 0.2 /100WBC [facility] Neutrophils Absolute Auto 4.0 2.0 - 8.3 x10*3/uL [facility] Imm Gran Abs Auto 0.02 0.00 - 0.03 X10*3/uL [facility] Lymphocytes Absolute Auto 1.2 1.2 - 4.9 X10*3/uL [facility] Monocytes Absolute Auto 0.4 0.1 - 1.2 X10*3/uL [facility] Eosinophils Absolute Auto 0.2 0.0 - 0.4 X10*3/uL [facility] Basophils Absolute Auto 0.0 0.0 - 0.2 X10*3/uL [facility] NRBC Abs Auto 0.000 0.0 - 0.012 X10*3/uL [facility] 08/02/2024 12:3 8 PM EDT 08/02/2024 12:41 PM EDT us Generic External Data Provider LAB BLOOD ORDERAB LES Final Result [facility] [address] [place] [address] [phone] documented in this encounter Visit Diagnoses Not on filedocumented in this encounter Additional Health Concerns Assessment Noted Time PHQ-9 Depression Total Score: 0 05/23/19 24 1:38 PM EST documented as of this encounter Care Teams Field Artillery Senior Sergeant Relationship Specialty Start Date End Date Diamond Ponce MD [address] [place] [address] PCP - General Family Medicine 07/01/19 documented as of this encounter
--- OUTSIDE RECORDS SUMMARY | 2024-08-02 13:00 | XMS_ITS | Clinical Summary ---
Author Organization [employer] Address [address] [place] [address] [address] [place] [address] Care Team Providers Care Net Fisher Name Role Phone Diamond Ponce MD Primary Care Provide r Allergies Active Allergy Reactions Criticality Noted Date Comments Morphine 04/24/2022 confusion Tramadol 08/13/2022 Medications Melatonin 3 MG capsule take one at bed time 2 Active TRUEplus Lancets 33G misc TEST BLOOD SUGAR TWICE DAILY DIRECTED 3 Active famotidine (Pepcid) 40 MG tablet Take 40 mg by mouth at bedtime. 3 Active glucose blood (FREESTYLE LITE) test stripIndications: Type 2 diabetes mellitus without complication, without long-term current use of insulin ([facility]) 1 each by Other route every 12 (twelve) hours. 100 each 2 3 Active cholecalciferol (Vitamin D-3) 50 MCG (2000 UT) capsuleIndication s:Vitamin D deficiency Take 1 capsule by mouth daily 30 capsule 11 4 Active Linzess 290 MCG capsule TAKE 1 CAPSULE BY MOUTH EVERY MORNING WITH A FULL GLASS OF WATER 4 Active docusate sodium (Colace) 100 MG capsuleIndication s:Constipation, unspecified constipation type Take 1 capsule (100 mg) by mouth at bedtime. 90 capsule 1 4 Active triamcinolone (Kenalog) 0.1 % creamIndications: Dry skin dermatitis Apply topically if needed in the morning and at bedtime (pain and swelling). 30 g 1 4 Active atorvastatin (Lipitor) 40 MG tabletIndications :Essential hypertension TAKE 1 TABLET BY MOUTH ONCE DAILY 90 tablet 1 5 Active Simethicone Ultra Strength 180 MG capsuleIndication s:Pain of upper abdomen TAKE 1 CAPSULE BY MOUTH TWICE DAILY AFTER MEALS 60 capsule 5 Active cetirizine (ZyrTEC) 10 MG tabletIndications :Viral upper respiratory tract infection Take 1 tablet (10 mg) by mouth Once per day. 90 tablet 1 5 Active fluticasone (Flonase) 50 MCG/ACT nasal sprayIndications: Acute maxillary sinusitis, recurrence not specified Administer 1 spray into each nostril Once per day. 16 g 3 5 Active albuterol 108 (90 Base) MCG/ACT inhaler Inhale 2 puffs every 4 (four) hours if needed for wheezing or shortness of breath. 18 g 5 05/06/19 26 Active Spacer/Aero-Holdi ng Chambers (AeroChamber Mini Chamber) device Use with albuterol MDI as needed 1 each 5 Active magnesium gluconate 250 MG tablet Take 1 tablet by mouth Once per day. Active [place]-3 Fatty Acids (OMEGA 3 500 PO) 1 tablet by mouth every other day Active alendronate (Fosamax) 70 MG tabletIndications :Age-related osteoporosis without current pathological fracture take 1 tablet by mouth once a week with 6 to 8 oz of water 30 min before first food of day. do not lie down for 30 minutes 12 tablet 5 Active Diclofenac Sodium 1 % gelIndications:Co stochondritis APPLY 2 GM TOPICALLY TO THE AFFECTED AREA IF NEEDED FOR PAIN 100 g 5 Active acetaminophen (Tylenol) 500 MG tablet Take 2 tablets (1,000 mg) by mouth every 6 (six) hours if needed for moderate pain or fever for up to 25 doses. 50 tablet 5 Active lidocaine (Lidoderm) 5 % patchIndications: Chest wall pain Apply 1 patch topically Once per day. Remove & discard patch within 12 hours or as directed by MD. May use 2 patches at once. 60 patch 2 5 Active ibuprofen 800 MG tablet Take 1 tablet by mouth every 6 (six) hours if needed for mild pain. Active FT ClearLax 17 GM/SCOOP powder Take 17 g by mouth Once per day. 5 Active carboxymethylcell ulose (Artificial Tears) 1 % ophthalmic solutionIndicatio ns:Dry eyes Administer 1 drop into both eyes 3 times daily. 15 mL 3 5 07/01/19 26 Active Blood Glucose Monitoring Suppl (SKURAyle [place] Lite) w/Device kitIndications:Ty pe 2 diabetes mellitus without complication, without long-term current use of insulin ([facility]) Use to monitor blood sugar twice daily 1 kit 5 Active Active Problems Problem Noted Date Diagnosed Date [...] 06/03/2023 Dyspnea on exertion 05/23/2023 Fractured dental synagogue with loss of materi al 04/02/2023 Encounter [...] Encounters Date Type Department Care Team Description 08/02/2024 9:40 AM EDT Office Visit [facility] [address] [place] [phone] Clyde Chase MD Chest pain, unspecified type (Primary Dx) 08/02/2024 Orders Only GENERIC EXTERNAL DATA DEPARTMENT Provider, Generic External Data 07/19/2024 Orders Only [facility] [address] [place] [phone] Diamond Ponce MD 07/14/2024 2:30 PM EDT Office Visit [facility] [address] [place] [phone] Aron No DDS Fractured dental synagogue with loss of material (Primary Dx) 07/14/[address] [address] Diamond Ponce MD Type 2 diabetes mellitus without complication, without long-term current use of insulin (CMS/HCC) 06/30/2024 Orders Only [facility] [address] [place] [phone] Selvin, VIKA Hinkle Dry eyes (Primary Dx) 06/29/2024 Orders Only [facility] [address] [place], [place] [phone] Carla Mckeon 06/25/2024 Telephone [facility] [address] [phone] Shauna Hunt RN PA for lidocaine patches faxed 06/23/2024 10:40 AM EDT Office Visit [facility] [address] [address] Clyde Chase MD Closed fracture of transverse process of lumbar vertebra, initial encounter (CMS/[facility]) (Primary Dx); Costochondritis; Chest wall pain 06/23/[address] [address] Clara Hightower ANP 06/21/2024 Orders Only GENERIC EXTERNAL DATA DEPARTMENT Provider, Generic External Data 06/15/2024 1:45 PM EDT Office Visit [address] [address] Diamond Ponce MD Essential hypertension (Primary Dx); Type 2 diabetes mellitus without complication, without long-term current use of insulin (CMS/HCC); Screening for colon cancer; Chest wall pain 06/15/2024 Travel 06/07/2024 Patient Outreach [address] [address] Diamond Ponce MD Pre-visit Planning (SDOH screening negative and tobacco screening negative) 06/02/[address] [address] Clara Hightower ANP 05/25/2024 Refill [facility] [address] [place] [address] Diamond Ponce MD Age-related osteoporosis without current pathological fracture 05/25/2024 Telephone [facility] [address] [place] [phone] Lizbet Vickers, Mao 05/24/2024 2:00 PM EST Office Visit [facility] [address] [place] [phone] Daija Garrison MD Pain of upper abdomen (Primary Dx); External hemorrhoid; Other hemorrhoids; Costochondritis 05/06/2024 1:40 PM EST Office Visit [facility] [address] [address] Doris Dugan DO Influenza A (Primary Dx); Viral upper respiratory tract infection; Acute maxillary sinusitis, recurrence not specified 05/06/2024 Telephone [facility] [address] [place] [address] Diamond Ponce MD 05/06/2024 Telephone [facility] [address] [address] Doris Dugan DO from Last 3 Months Immunizations Name Administration [...] Sign Reading Time Taken Comments Blood Pressure 142/86 08/02/2024 9:30 AM EDT Pulse 88 08/02/2024 9:30 AM EDT Temperature 36.7 ??C (98.1 ??F) 08/02/2024 9:30 AM ED T Respiratory Rate 18 08/02/2024 9:30 AM EDT Oxygen Saturation 98% 08/02/2024 9:30 AM EDT Inhaled Oxygen Concentration - - Weight 65.8 kg (145 lb) 08/02/2024 9:30 AM EDT Height 149.9 cm (4' 11 ) 06/15/2024 1:39 PM EDT Body Mass Index 29.29 06/15/2024 1:39 PM EDT Plan of Treatment Upcoming Encounters Date Type Department Care Team (Late st Contact Info) Description 08/12/2024 3:00 PM EDT Office Visit [facility] [address] [place] [address] Trujillo-Aguayo, Tiffanie, DDS [address] [place] [address] Health Maintenance Due Date Last Done Comments [...] history exists Depression Screening 05/22/2024 05/23/2023, 05/23/19 Diabetes: Hemoglobin A1C 09/01/2024 024, 12/09/2023, 05/23/2023, Additional history exists Influenza Vaccine (#1) 2024 , 01/03/2022, 02/23/2021, Additional history exists Postponed from 11/23/2023 (Patient Refused) HPV/Cotest 11/01/2024 12/02/2018 Pap Smear 11/01/2024 Alcohol/Substance Use Screening 12/08/2024 12/09/2023 Diabetes: Urine Protein Screening 03/03/2025 03/03/2024, 01/14/2023 Lipid Panel 03/03/2025 03/03/2024, 12/23, 09/11/2021, Additional history exists SDOH Screening 06/07/2025 06/07/2024 Mammogram 07/19/2025 07/19/2024, 06/23, 07/09/2022, Additional history exists Tobacco Screening 08/02/2025 08/02/2024 Eye Exam 10/02/2025 10/03/2023, 09/21, 10/03/2023, Additional [...] Date/Time Associated Diagnosis Comments ECG 12-LEAD Routine 08/02/2024 12:44 PM EDT Chest pain, unspecified type CBC WITH AUTO DIFFERENTIAL Routine 08/02/2024 12:38 PM EDT XR RIBS 3 VIEWS LEFT W CHEST Routine 08/02/2024 11:38 AM EDT BI MAMMOGRAM SCREENING TOMOSYNTHESIS BILATERAL Routine 07/19/2024 1:30 PM EDT INTRAORAL - PERIAPICAL FIRST RADIOGRAPHIC [...] complication, without long-term current use of insulin ([facility]/HCC) HEPATIC FUNCTION PANEL Routine 1:51 PM EST [...] Routine 05/06/2024 1:46 PM EST Influenza A HEPATITIS C AB W/REFL TO HCV RNA, QN, PCR Routine 03/03/2024 7:57 AM EST Type 2 diabetes mellitus without complication, without long-term current use of insulin ([facility]) ALBUMIN, RANDOM URINE W/CREATININE Routine 03/03/2024 7:57 AM EST Type 2 diabetes mellitus without complication, without long-term current use of insulin ([facility]) HEMOGLOBIN A1C Routine 03/03/2024 7:57 AM EST Type 2 diabetes mellitus without complication, without long-term current use of insulin ([facility]) LIPID PANEL, STANDARD Routine 03/03/2024 7:57 AM EST Type 2 diabetes mellitus without complication, without long-term current use of insulin ([facility]) Full PROPHYLAXIS - ADULT Routine 01/02/2023 3:00 [...] Recently Relevant to Health Maintenance Results * CBC auto differential (08/02/2024 12:38 PM EDT) Only the most recent of2 resultswithin the time period is included. White Blood Count 5.9 4.8 - 10.8 X10*3/uL [facility] Red Blood Count 4.43 4.20 - 5.50 X10*6/uL [facility] Hemoglobin 14.4 12.0 - 16.0 g/dl [facility] Hematocrit 42.1 37.0 - 47.0 % [facility] Mean Corpuscular Volume 95.0 80.0 - 98.0 fL [facility] Mean Corpuscular Hemoglobin 32.5 27.0 - 33.0 pg [facility] Mean Corpuscular HGB Conc 34.2 31.0 - 35.0 g/dl [facility] Red Cell Distribution Width 11.7 11.0 - 16.0 % [facility] Platelet Count 255 160 - 400 X10*3/uL [facility] Mean Platelet Volume 9.7 9.4 - 12.3 fL [facility] Neutrophils Percent Auto 68.8 45 - 73 % [facility] Imm Gran Pct Auto 0.3 0.0 - 0.4 % [facility] Lymphocytes Percent Auto 20.9 20 - 40 % [facility] Monocytes Percent Auto 7.0 2 - 11 % [facility] Eosinophils Percent Auto 2.7 0 - 4 % [facility] Basophils Percent Auto 0.3 0 - 2 % [facility] NRBC Pct Auto 0.0 0.0 - 0.2 /100WBC [facility] Neutrophils Absolute Auto 4.0 2.0 - 8.3 x10*3/uL [facility] Imm Gran Abs Auto 0.02 0.00 - 0.03 X10*3/uL [facility] Lymphocytes Absolute Auto 1.2 1.2 - 4.9 X10*3/uL [facility] Monocytes Absolute Auto 0.4 0.1 - 1.2 X10*3/uL [facility] Eosinophils Absolute Auto 0.2 0.0 - 0.4 X10*3/uL [facility] Basophils Absolute Auto 0.0 0.0 - 0.2 X10*3/uL [facility] NRBC Abs Auto 0.000 0.0 - 0.012 X10*3/uL [facility] 08/02/2024 12:3 8 PM EDT 08/02/2024 12:41 PM EDT us Generic External Data Provider LAB BLOOD ORDERAB LES Final Result [facility] [address] [place] [address] [phone] * XR Ribs 3 Views Left w/ Chest (08/02/2024 11:38 AM EDT) Anatomical Region Laterality Modality Radiographic Nicky ging 08/02/2024 11:3 8 AM EDT Narrative 08/02/2024 12:08 PM EDT ? [facility] ?[address] ?[place], [place] [address] ?XRay Report ? Signed ? Patient: Nikolai De Nikhil,Eveline ? MR#: [id number] ? : 1955 ?Acct:[id number] ? Age/Sex: 69 / F ?ADM Date: 08/02/24 ? Loc: HO.ED ? Attending Dr: ? Ordering Physician: Santana Thrasher ?? Date of Service: 08/02/24 ?? Procedure(s): XR ribs LT min 3V w CXR1V ?? Accession Number(s): [id number] ? cc: Diamond Ponce MD; Santana Thrasher ? EXAMINATION: ?? XR RIBS, LEFT ? CLINICAL INFORMATION: ?? pain ? COMPARISON: ?? May 06, 2024. ? TECHNIQUE: ?? 3 views of the left ribs were obtained. ? FINDINGS: ?? No consolidation, pleural effusion or pneumothorax. ?? Cardiomediastinal silhouette is enlarged. ?? Calcified plaque thoracic aortic arch. ?? No acute cortical disruption within the ribs of the left hemithorax. ?? Multilevel thoracolumbar spondylosis, mild to moderate. ?? Degenerative changes in the right greater than ??left shoulders. ?? Patient's large body habitus. ? XR/XR ribs LT min 3V w CXR1V ?? IMPRESSION: ?? No acute airspace disease. ?? No acute rib fracture, left hemithorax. ?? Cardiomegaly versus hypertensive cardiomyopathy. ? Electronically signed by: ??Lamonte Curtis MD ??08/02/2024 12:05 PM ?? EDT RP ? Dictated By: ?Lamonte Sharp MD ? Signed By: ?<Electronically signed by Lamonte Montero MD in OV> ? 08/02/24 1205 ? DD/ 1138 ? TD/TT: 08/02/24 1158 ? Manager Implementation: ? Procedure Note Guille, Image - 08/02/[address] [address] XRay Report Signed Patient: Eveline Novoa MR#: [id number] : 4Acct:[id number] Age/Sex: 69 / FADM Date: 08/02/24 Loc: HO.ED Attending Dr: Ordering Physician: Santana Thrasher Date of Service: 08/02/24 Procedure(s): XR ribs LT min 3V w CXR1V Accession Number(s): [id number] cc: Diamond Ponce MD; Santana Thrasher EXAMINATION: XR RIBS, LEFT CLINICAL INFORMATION: pain COMPARISON: May 06, 2024. TECHNIQUE: 3 views of the left ribs were obtained. FINDINGS: No consolidation, pleural effusion or pneumothorax. Cardiomediastinal silhouette is enlarged. Calcified plaque thoracic aortic arch. No acute cortical disruption within the ribs of the left hemithorax. Multilevel thoracolumbar spondylosis, mild to moderate. Degenerative changes in the right greater than left shoulders. Patient's large body habitus. XR/XR ribs LT min 3V w CXR1V IMPRESSION: No acute airspace disease. No acute rib fracture, left hemithorax. Cardiomegaly versus hypertensive cardiomyopathy. Electronically signed by: Lamonte Curtis MD 08/02/2024 12:05 PM EDT Dictated By: Lamonte Sharp MD Signed By: <Electronically signed by Lamonte Montero MDin OV> 08/02/24 1205 DD/ 1138 TD/TT: 08/02/24 1158 Manager Implementation: [facility] External Provider IMG XR PROCEDURES Final Result * BI Mammogram Screening Tomosynthesis Bilateral (07/19/2024 1:30 PM EDT) Anatomical Region Laterality Modality Breast Bilateral Mammography 07/19/2024 1:30 PM EDT Narrative 07/25/2024 2:35 PM EDT ? [facility] ? [address] ?[place] [address] ?[phone] ? Mammography Report ? Signed ? Patient: Nikolai De Nikhil,Eveline ? MR#: [id number] ? : 1955 ?Acct:[id number] ? Age/Sex: 69 / F ?ADM Date: 07/19/ ? Loc: HO.MAMMO ? Attending Dr: Diamond Lepe MD ? Ordering Physician: Diamond Ponce MD ?Results: ?? 2Benign Findings ? Date of Service: 07/19/24 ?Follow Up: 1 Year From Orig ?? inal Mammogram ? Procedure(s): MM tomosynthesis screening BI ?? Accession Number(s): [id number] ? cc: Diamond Ponce MD ? EXAMINATION: ?? MM SCREENING DIGITAL BREAST TOMOSYNTHESIS, BILATERAL ? CLINICAL INFORMATION: ? Screening. Asymptomatic. ? COMPARISON: ?? Mammography: Comparison is made with available priors ? TECHNIQUE: ?? Digital breast mammography with tomosynthesis is performed in both the ?? craniocaudal and mediolateral oblique views along with computer-aided ?? detection (CAD). ? FINDINGS: ?? There are scattered areas of fibroglandular density (ACR BI-RADS breast ?? composition Category b). ?? Focal asymmetry central inner right breast posterior depth stable ?? dating back to 2022. ?? There are no significant masses, abnormal calcifications, or other ?? abnormalities. ? MM/MM tomosynthesis screening BI ?? IMPRESSION: ?? No mammographic evidence of malignancy. ? ASSESSMENT: ? BI-RADS BI-RADS 2 - Benign Findings ? RECOMMENDATION: ?? Routine annual mammography screening. ? 1 year F/U ? This examination should not preclude the clinical evaluation of a ?? suspicious palpable abnormality. ? This patient's information was entered into a reminder system with a ?? target due date for their next mammogram. ? Electronically signed by: ??Fanta Chao DO ??07/25/2024 02:32 PM EDT ? Dictated By: ?Fanta Chao DO ? Signed By: ?<Electronically signed by Fanta Chao, DO in OV> ? 07/25/24 1432 ? DD/ 1330 ? TD/TT: 07/19/24 1355 ? Manager Implementation: ? Procedure Note Guille, Cara - 07/25/2024 [place] [facility] [address] [place] [address] Mammography Report Signed Patient: Eveline Novoa MR#: [id number] : 4Acct:[id number] Age/Sex: 69 / FADM Date: 07/19/24 Loc: HO.MAMMO Attending Dr: Diamond Lepe MD Ordering Physician: Diamond Ponce MDResults: 2Benign Findings Date of Service: 07/19/24Follow Up: 1 Year From Orig inal Mammogram Procedure(s): MM tomosynthesis screening BI Accession Number(s): [id number] cc: Diamond Ponce MD EXAMINATION: MM SCREENING DIGITAL BREAST TOMOSYNTHESIS, BILATERAL CLINICAL INFORMATION: Screening. Asymptomatic. COMPARISON: Mammography: Comparison is made with available priors TECHNIQUE: Digital breast mammography with tomosynthesis is performed in both the craniocaudal and mediolateral oblique views along with computer-aided detection (CAD). FINDINGS: There are scattered areas of fibroglandular density (ACR BI-RADS breast composition Category b). Focal asymmetry central inner right breast posterior depth stable dating back to 2022. There are no significant masses, abnormal calcifications, or other abnormalities. MM/MM tomosynthesis screening BI IMPRESSION: No mammographic evidence of malignancy. ASSESSMENT: BI-RADS BI-RADS 2 - Benign Findings RECOMMENDATION: Routine annual mammography screening. 1 year F/U This examination should not preclude the clinical evaluation of a suspicious palpable abnormality. This patient's information was entered into a reminder system with a target due date for their next mammogram. Electronically signed by: Fanta Chao DO 07/25/2024 02:32 PM EDT RP Dictated By: Fanta Chao DO Signed By: <Electronically signed by Fanta Chao DO in OV> 07/25/24 1432 DD/ 1330 TD/TT: 07/19/24 1355 Manager Implementation: Diamond Lepe MD IMG BI PROCEDURES Tai ta Result - Final * Cologuard?? colon cancer screening (06/28/2024 10:00 PM EDT) Cologuard Result Negative Negative 07/07/19 12:46 PM EDT [email or web address] (CLIA #:[id number]) Comment: NEGATIVE TEST RESULT. A negative Cologuard [...] (Amanda Sharif al, N Engl J Med 2014;370(14):1286- 1297) The normal value (reference range) for this assay is negative. COLOGUARD RE-SCREENING RECOMMENDATION: Periodic colorectal cancer screening is an important part of preventive healthcare for asymptomatic individuals at average risk for colorectal cancer. ??Following a negative Cologuard result, the [place] [employer] and U.S. Multi-Society Task Force screening guidelines recommend a Cologuard re-screening interval of 3 years. References: [place] [employer] Guideline for Colorectal Cancer Screening: https://www.cancer.org/cancer/zddoz-yagsem-mbkkcv/dqjonitpf-tinvmerhr-rmqhxdk/ac s-rec ommendations.html.; Robert DK, Tanisha CR, Ji ValenciaK, Colorectal Cancer Screening: Recommendations for Physicians and Patients from the U.S. Multi-Society Task Force on Colorectal Cancer Screening , Am J Gastroenterology 2017; 112:9100-5538. TEST DESCRIPTION: Composite algorithmic analysis of stool [...] (Amanda Sharif al, N Engl J Med 2014;370(14):4135-1673.) Cologuard may produce a false negative or false positive result (no colorectal cancer or precancerous polyp present at colonoscopy follow up). A negative Cologuard test result does not guarantee the absence of CRC or advanced adenoma (pre-cancer). The current Cologuard screening interval is every 3 years. ([place] [employer] and U.S. Multi-Society Task Force). Cologuard performance data in a 10,000 patient pivotal study using colonoscopy as the reference method can be accessed at the following location: www.[employer]/results. Additional description of the Cologuard test process, warnings and precautions can be found at www.colBocomrd.com. Stool specimen (specimen) 06/28/2024 10:00 PM EDT 06/30/2024 1:20 PM EDT us Diamond Lepe MD LAB MOLECULAR DIAGNOS TICS ORDERABLES Final Result [email or web address] (CLIA #:[id number]) [place] [address], [place] [phone] * (ABNORMAL) Urinalysis, Complete, with Reflex to Culture (06/21/2024 2:40 PM EDT) Color Urine Yellow [facility] Appearance Urine Clear [facility] PH >=9.0 5.0 - 9.0 [facility] Glucose Urine UA Negative Negative mg/dL [facility] Urine Blood Negative Negative [facility] Specific [place] - Urine >=1.030(H) 1.005 - 1.025 [facility] Urine Protein Negative Neg-Trace mg/dL [facility] Urine Ketones Negative Negative mg/dL [facility] Nitrite Urine Negative Negative [facility] Leukocyte Esterase Urine Small (1+)(A) Negative [facility] RBC Urine 0-2 0 - 2 /HPF [facility] Urine WBC 6-10 0 - 5 /HPF [facility] Urine Squamous Epithelial Cell 0-2 0 - 2 /HPF [facility] Urine Bacteria None Seen None Seen [facility] Hyaline Casts, Urine 0-2 0 - 2 /LPF [facility] 06/21/2024 2:40 PM EDT 06/21/2024 2:43 PM EDT Narrative [facility] - 06/21/2024 2:56 PM EDT Urine, Clean Catch us Generic External Data Provider LAB URINE ORDERAB LES Final Result [facility] [address] [facility] [place] [address] [phone] * CT Abdomen Pelvis w/ Contrast (06/21/2024 10:35 AM EDT) Anatomical Region Laterality Modality Body, Pelvis, Abdomen Computed T omography 06/21/2024 10:3 5 AM EDT Narrative 06/21/2024 11:35 AM EDT ? [facility] ?[address] ?[place] [address] ? CT Scan Report ? Signed ? Patient: Eveline Novoa ? MR#: [id number] ? : 1955 ?Acct:[id number] ? Age/Sex: 69 / F ?ADM Date: 06/21/24 ? Loc: HO.ED ? Attending Dr: ? Ordering Physician: Ana Rehman DO ?? Date of Service: 06/21/24 ?? Procedure(s): CT abdomen pelvis w IV con ?? Accession Number(s): [id number] ? cc: Diamond oPnce MD; Ana Rehman DO ? Report Number: ?? [id number]: Total DLP = ??598.94 mGy-cm ?? EXAMINATION: [...] DD/ 1035 ? TD/TT: 06/21/24 1115 ? Manager Implementation: ? Procedure Note Guille, Image - 06/21/[address] [address] [address] Scan Report Signed Patient: Eveline Novoa MR#: [id number] : 4Acct:[id number] Age/Sex: 69 / FADM Date: 06/21/24 Loc: HO.ED Attending Dr: Ordering Physician: Ana Rehman DO Date of Service: 06/21/24 Procedure(s): CT abdomen pelvis w IV con Accession Number(s): [id number] cc: Diamond Ponce MD; Ana Rehman DO Report Number: [id number]: Total DLP = 598.94 mGy-cm EXAMINATION: CT [...] 06/21/24 1132 DD/ 1035 TD/TT: 06/21/24 1115 Manager Implementation: [facility] External Provider IMG CT PROCEDURES Final Result * CT Chest w/ Contrast (06/21/2024 10:35 AM EDT) Anatomical Region Laterality Modality Body, Chest Computed Tomogra phy 06/21/2024 10:3 5 AM EDT Narrative 06/21/2024 11:35 AM EDT ? [facility] ?[address] ?[place] [address] ? CT Scan Report ? Signed ? Patient: Nikolai De Nikhil,Eveline ? MR#: [id number] ? : 1955 ?Acct:[id number] ? Age/Sex: 69 / F ?ADM Date: 03/31/25 ? Loc: HO.ED ? Attending Dr: ? Ordering Physician: Ana Rehman DO ?? Date of Service: 06/21/24 ?? Procedure(s): CT chest w IV con ?? Accession Number(s): [id number] ? cc: Diamond Ponce MD; Ana Rehman DO ? Report Number: ?? [id number]: Total DLP = ??319.06 mGy-cm ?? EXAMINATION: [...] DD/ 1035 ? TD/TT: 06/21/24 1115 ? Manager Implementation: ? Procedure Note Donotuseinterpreter, Image - 06/21/[address] [address] [address] Scan Report Signed Patient: Eveline Novoa MR#: [id number] : 1955cct:[id number] Age/Sex: 69 / FADM Date: 06/21/24 Loc: HO.ED Attending Dr: Ordering Physician: Ana Rehman DO Date of Service: 06/21/24 Procedure(s): CT chest w IV con Accession Number(s): [id number] cc: Diamond Ponce MD; Ana Rehman DO Report Number: [id number]: Total DLP = 319.06 mGy-cm EXAMINATION: CT [...] 06/21/24 1132 DD/ 1035 TD/TT: 06/21/24 1115 Manager Implementation: [facility] External Provider IMG CT PROCEDURES Final Result * CT Cervical Spine w/o Contrast (06/21/2024 10:27 AM EDT) Anatomical Region Laterality Modality Spine, C-spine Computed Tomogra phy 06/21/2024 10:2 7 AM EDT Narrative 06/21/2024 11:31 AM EDT ? [facility] ?[address] ?[place] [address] ? CT Scan Report ? Signed ? Patient: Nikolai De Nikhil,Eveline ? MR#: [id number] ? : 1955 ?Acct:[id number] ? Age/Sex: 69 / F ?ADM Date: 06/21/24 ? Loc: HO.ED ? Attending Dr: ? Ordering Physician: Ana Rehman DO ?? Date of Service: 06/21/24 ?? Procedure(s): CT cervical spine wo IV con ?? Accession Number(s): [id number] ? cc: Diamond Ponce MD; Ana Rehman DO ? Report Number: ?? [id number]: Total DLP = ??436.45 mGy-cm ?? EXAMINATION: [...] DD/ 1027 ? TD/TT: 06/21/24 1115 ? Manager Implementation: ? Procedure Note Cara Han - 06/21/[address] [place] [address] [address] Scan Report Signed Patient: Eveline Novoa MR#: [id number] : 4Acct:[id number] Age/Sex: 69 / FADM Date: 06/21/24 Loc: HO.ED Attending Dr: Ordering Physician: Ana Rehman DO Date of Service: 06/21/24 Procedure(s): CT cervical spine wo IV con Accession Number(s): [id number] cc: Diamond Ponce MD; Ana Rehman DO Report Number: [id number]: Total DLP = 436.45 mGy-cm EXAMINATION: CT [...] 06/21/24 1128 DD/ 1027 TD/TT: 06/21/24 1115 Manager Implementation: [facility] External Provider IMG CT PROCEDURES Final Result * CT Head w/o Contrast (06/21/2024 10:27 AM EDT) Anatomical Region Laterality Modality Head, Neck Computed Tomogra phy 06/21/2024 10:2 7 AM EDT Narrative 06/21/2024 11:30 AM EDT ? [facility] ?[address] ?[place] [address] ? CT Scan Report ? Signed ? Patient: Nikolai De Nikhil,Eveline ? MR#: [id number] ? : 1955 ?Acct:[id number] ? Age/Sex: 69 / F ?ADM Date: 03/31/25 ? Loc: HO.ED ? Attending Dr: ? Ordering Physician: Ana Rehman DO ?? Date of Service: 06/21/24 ?? Procedure(s): CT head/brain wo IV con ?? Accession Number(s): [id number] ? cc: Diamond Ponce MD; Ana Rehman DO ? Report Number: ?? [id number]: Total DLP = ??745.55 mGy-cm ?? EXAMINATION: [...] DD/ 1027 ? TD/TT: 06/21/24 1115 ? Manager Implementation: ? Procedure Note Donotuseinterpreter, Image - 06/21/[address] [address] [address] Scan Report Signed Patient: Eveline Novoa MR#: [id number] : 1955cct:[id number] Age/Sex: 69 / FADM Date: 06/21/24 Loc: HO.ED Attending Dr: Ordering Physician: Ana Rehman DO Date of Service: 06/21/24 Procedure(s): CT head/brain wo IV con Accession Number(s): [id number] cc: Diamond Ponce MD; Ana Rehman DO Report Number: [id number]: Total DLP = 745.55 mGy-cm EXAMINATION: CT [...] 06/21/24 1128 DD/ 1027 TD/TT: 06/21/24 1115 Manager Implementation: [facility] External Provider IMG CT PROCEDURES Final Result * Magnesium (06/21/2024 9:52 AM EDT) Magnesium 2.2 1.6 - 2.6 mg/dL [facility] 06/21/2024 9:52 AM EDT 06/21/2024 9:53 AM EDT Generic External Data Provider LAB BLOOD ORDERAB LES Final Result Performing Organization Address [facility]/ZIP Co de Phone Number [facility] [address] [place] [phone] * Lipase (06/21/2024 9:52 AM EDT) Only the most recent of2 resultswithin the time period is included. Lipase 26 8 - 78 U/L [facility] 06/21/2024 9:52 AM EDT 06/21/2024 9:53 AM EDT Generic External Data Provider LAB BLOOD ORDERAB LES Final Result Performing Organization Address [facility] Co de Phone Number [facility] [address] [place] [phone] * Hepatic Function Panel (06/21/2024 9:52 AM EDT) Only the most recent of2 resultswithin the time period is included. Bilirubin, Total 0.6 0.0 - 1.0 mg/dL [facility] Bilirubin, Direct 0.1 0.0 - 0.5 mg/dL [facility] Aspartate Amino Transferase 25 5 - 31 U/L [facility] Alanine Aminotransferase 13 0 - 31 U/L [facility] Total Protein 6.7 6.5 - 8.0 g/dL [facility] Albumin Level 3.7 3.5 - 5.0 g/dL [facility] Alkaline Phosphatase 64 39 - 117 U/L [facility] 06/21/2024 9:52 AM EDT 06/21/2024 9:53 AM EDT us Generic External Data Provider LAB BLOOD ORDERAB LES Final Result Performing Organization Address City/State/[facility] Co de Phone Number [facility] [address] [place] [phone] * (ABNORMAL) Basic Metabolic Panel (06/21/2024 9:52 AM EDT) Pathologist [facility] Sodium 140 135 - 145 mmol/L [facility] Potassium 4.2 3.3 - 5.1 mmol/L [facility] Chloride 109(H) 96 - 108 mmol/L [facility] Carbon Dioxide 24 22 - 29 mmol/L [facility] Anion Gap 11(L) 12 - 20 [facility] Urea Nitrogen (BUN) 16 9 - 16 mg/dL [facility] Creatinine, Serum 0.76 0.5 - 1.4 mg/dL [facility] Creatinine Clr Calc Pharmacy 57.4 [facility] Comment:Provided height and weight: 149.86 cm,67.132 kg.eGFR (calculated from the MDRD study equation) and eCrCl(calculated from the Cockcroft-Gault equation) are based ondifferent parameters and may not yield comparable results.If eCrCl result is absurd, please check patient'sheight/weight. Estimated Glomerular Filt Rate >60 [facility] Comment:Chronic Kidney Disea se: Estimated GFR < 60 mL/min/1.37a5Hclssb Kidney Disease: Estimated GFR < 15 mL/min/1.73m2 Glucose 95 60 - 115 mg/dL [facility] Calcium 9.0 8.4 - 10.2 mg/dL [facility] 06/21/2024 9:52 AM EDT 06/21/2024 9:53 AM EDT us Generic External Data Provider LAB BLOOD ORDERAB LES Final Result [facility] [address] [place] [phone] * Culture, Urine, Routine (06/21/2024 12:00 AM EDT) Urine Urine specimen obtained by clean catch procedure / Unknown 06/21/2024 06/21/2024 Comment:UACC Narrative [facility] - 06/22/2024 8:40 AM EDT Urine Culture Report Result Urine Culture < 10,000 cfu/ml Specimen Source: Urine clean catch us Generic External Data Provider LAB MICROBIOLOGY - GENERAL ORDERABLES Final Result [facility] [address] [place] [phone] * POCT Glucose (06/15/2024 1:40 PM EDT) Glucose Blood, POC 107 60 - 200 mg/dL QC Media Lot # [id number] Lot# Expiration Date [id number] Blood Capillary blood specimen / Unknown 06/15/2024 1:40 PM EDT us Diamond Lepe MD POINT OF CARE TEST EN TER/EDIT ORDERABLES Final Result * Amylase (05/25/2024 1:51 PM EST) Amylase 77 28 - 100 U/L [facility] Blood Venous blood specimen / Unknown 05/25/2024 1:51 PM EST 05/25/2024 4:03 PM EST us Clara Hightower ANP LAB BLOOD ORDERABLES Final Resul t [facility] [address] [facility] [place] [phone] * US Abdomen Complete (05/07/2024 4:28 PM EST) Anatomical Region Laterality Modality Abdomen Ultrasound 05/07/2024 4:28 PM EST Narrative 05/07/2024 4:29 PM EST ? [facility] ?[address] ?[place] [address] ? Ultrasound Report ? Signed ? Patient: Nikolai De Nikhil,Eveline ? MR#: [id number] ? : 1955 ?Acct:[id number] ? Age/Sex: 69 / F ?ADM Date: 05/07/24 ? Loc: HO.US ? Attending Dr: Clara Hightower NP ? Ordering Physician: CLARA HIGHTOWER NP ?? Date of Service: 05/07/24 ?? Procedure(s): US abdomen complete ?? Accession Number(s): [id number] ? cc: Diamond Ponce MD; CLARA HIGHTOWER [...] ?05/07/24 1628 ? DD/ 1628 ? TD/TT: 05/07/24 1628 ? Manager Implementation: ? Procedure Note Donotuseinterpreter, Image - 05/07/2024 [place] [address] Ultrasound Report Signed Patient: Eveline Novoa MR#: [id number] : 4Acct:[id number] Age/Sex: 69 / FADM Date: 05/07/24 Loc: HO.US Attending Dr: Clara Hightower NP Ordering Physician: CLARA HIGHTOWER NP Date of Service: 05/07/24 Procedure(s): US abdomen complete Accession Number(s): [id number] cc: Diamond Ponce MD; CLARA HIGHTOWER NP [...] signed by Katalina Coto MD in OV> 05/07/248 DD/ 27 TD/TT: 05/07/241627 Manager Implementation: us Clara RHODES IMG US PROCEDURES Edited Result - Final * XR Chest 2 Views (05/06/2024 2:09 PM EST) Anatomical Region Laterality Modality Chest Radiographic Nicky ging 05/06/2024 2:09 PM EST Narrative 05/06/2024 2:52 PM EST ?[facility] ?[address] ?[place] [address] ?XRay Report ? Signed ? Patient: Eveline Novoa ? MR#: [id number] ? : 1955 ?Acct:[id number] ? Age/Sex: 69 / F ?ADM Date: 05/06/24 ? Loc: HO.HHCX ? Attending Dr: Doris Dugan DO ? Ordering Physician: Doris Dugan DO ?? Date of Service: 05/06/24 ?? Procedure(s): XR chest 2V ?? Accession Number(s): [id number] ? cc: Doris Dugan DO ? EXAMINATION: [...] DD/ 1409 ? TD/TT: 05/06/24 1420 ? Manager Implementation: ? Procedure Note Donotuseinterpreter, Image - 05/06/2024 [facility] [address] [place] [address] XRay Report Signed Patient: Eveline Novoa MR#: [id number] : 4Acct:[id number] Age/Sex: 69 / FADM Date: 05/06/24 [facility] Attending Dr: Doris Dugan DO Ordering Physician: Doris Dugan DO Date of Service: 05/06/24 Procedure(s): XR chest 2V Accession Number(s): [id number] cc: Doris Dugan DO EXAMINATION: XR CHEST [...] 05/06/24 1449 DD/ 1409 TD/TT: 05/06/24 1420 Manager Implementation: us Doris Dugan DO IMG XR PROCEDURES Final Resu lt * Influenza B (ID NOW Rapid Molecular) (05/06/2024 1:46 PM EST) Influenza B Negative Negative, Indeterminate [facility] Swab 05/06/2024 1:46 PM EST Doris Dugan DO POINT OF CARE TEST ENTER/TAI T ORDERABLES Final Result Performing Organization Address [facility]/ZIP Co de Phone Number [facility] [address] [place] [phone] * (ABNORMAL) Influenza A (ID NOW Rapid Molecular) (05/06/2024 1:46 PM EST) [facility] Influenza A Positive( A) Negative, Indeterminate [facility] Swab 05/06/2024 1:46 PM EST us Doris Dugan DO POINT OF CARE TEST ENTER/TAI T ORDERABLES Final Result Performing Organization Address [facility] Co de Phone Number [facility] [address] [place] [phone] * POCT Rapid COVID Ag (05/06/2024 1:46 PM EST) [facility] Rapid COVID Ag Negative [facility] Swab 05/06/2024 1:46 PM EST Doris Dugan DO POINT OF CARE TEST ENTER/TAI T ORDERABLES Final Result Performing Organization Address [facility] de Phone Number [facility] [address] [place] [phone] * POCT rapid strep A manually resulted (05/06/2024 1:46 PM EST) [facility] Rapid Strep A Screen Negative Negative, None Detected [facility] Swab 05/06/2024 1:46 PM EST Doris Dugan DO POINT OF CARE TEST ENTER/TAI T ORDERABLES Final Result Performing Organization Address [facility] Co de Phone Number [facility] [address] [place] [phone] * Albumin, Random Urine W/Creatinine (03/03/2024 7:57 AM EST) Creatinine, Urine 57.95 mg/dL [facility] Microalbumin Urine <5.0 mg/L [facility] Microalbum Creatinine Ratio Ur TNP <30 ug/mg cr [facility] Comment:Unable to calculate albumin/creatinine ratio due to lowmicroalbumin or creatinine result. Urine (Urine, Random) 03/03/2024 7:57 AM EST 03/03/2024 11:16 AM EST us Diamond Lepe MD LAB URINE ORDERABLES Final Result Performing Organization Address [facility] Co de Phone Number [facility] [address] [place] [phone] * Hepatitis C Antibody with Reflex to HCV, RNA, Quantitative, Real-Time PCR (03/03/2024 7:57 AM EST) Hepatitis C Antibody Nonreactive Nonreactive [facility] Comment:Antibodies to HCV no t detected; does not exclude early acuteHCV infection. Blood Venous blood specimen / Unknown 03/03/2024 7:57 AM EST 03/03/2024 11:18 AM EST us Diamond Lepe MD LAB BLOOD ORDERABLES Final Result Performing Organization Address [facility] Co de Phone Number [facility] [address] [place] [phone] * (ABNORMAL) Hemoglobin A1c (03/03/2024 7:57 AM EST) Hemoglobin A1c 6.4(H) <6.0 % [facility] Comment:Hemoglobin A1C Refer ence Range Adults: 4.8 - 6.0 % Non diabetic: < 6.0 % Goal: < 7.0 %Additional Action Suggested: > 8.0 %Note: Hemoglobin A1c results are invalid for patients with abnormal amounts of HbF. Blood transfusions may impact the HbA1c concentration in the patient sample. Estimated Average Glucose 137 mg/dL [facility] Comment:eAG = Estimated ave rage glucose which is %A1C expressed asaverage glucose, using the formula of the U6W-XlutidvPainnqo Glucose study (ADAG), Diabetes Care, Vol.31,#8,Oct. 2007 Blood Venous blood specimen / Unknown 03/03/2024 7:57 AM EST 03/03/2024 11:17 AM EST us Diamond Lepe MD LAB BLOOD ORDERABLES Final Result Performing Organization Address [facility] Co de Phone Number [facility] [address] [place] [phone] * (ABNORMAL) Lipid Panel, Standard (03/03/2024 7:57 AM EST) Triglycerides 73 <150 mg/dL [facility] Comment:Desirable Triglyceri de: less than 150 mg/dLBorderline High Triglyceride 150-199 mg/dLHigh Triglyceride: 200-499 mg/dLVery High Triglyceride: greater than or equal to 5OO mg/dL Cholesterol 242(H) <200 mg/dL [facility] Comment:Desirable Cholestero l: less than 200 mg/dLBorderline High Cholesterol: 200-239 mg/dLHigh Cholesterol: greater than 239 mg/dL LDL Cholesterol Calculated 167(H) <100 mg/dL [facility] Comment:Desirable LDL: less than 100 mg/dLNear Optimal/Above Optimal LDL: 110- 129 mg/dLBorderline High LDL: 130-159 mg/dLHigh LDL: 160-189 mg/dLVery High LDL: greater than or equal to 190 mg/dL HDL Cholesterol 61 >40 mg/dL [facility] Comment:Desirable HDL: great er than 40 mg/dL Note: This HDL assay may give artificially low results in patients with liver disease. Blood Venous blood specimen / Unknown 03/03/2024 7:57 AM EST 03/03/2024 11:18 AM EST us Diamond Lepe MD LAB BLOOD ORDERABLES Final Result [facility] [address] [place] [phone] * (ABNORMAL) HPV mRNA E6/E7 (12/02/2018 3:30 PM EDT) HPV mRNA E6/E7 DETECTED (AA) NOT DETECTED [facility] Comment: This test was performed using the APTIMA(R) HPV Assay ([employer] This assay detects E6/E7 viral messenger RNA (mRNA) from 14 high-risk HPV types (16,18,31,33,35,39,45,51, 52,56,58,59,66,68). For additional information please refer to: http://education.Agentrun/faq/YYH975r4 (This link is being provided for informational/ educational purposes only.) The analytical performance characteristics of this assay have been determined by [employer] [place], [place]. The modifications have not been cleared or approved by the FDA. This assay has been validated pursuant to the CLIA regulations and is used for clinical purposes. Test Performed by [facility], [address] [place] [address] Justyn Nettles M.D., Ph.D., Director of Laboratories , CLIA [id number] Please note: ??Effective 12/04/2015, HPV testing will be performed using [employer]'s APTIMA test which targets mRNA. Detecting mRNA instead of DNA, as in older methods, offers significant improvements in specificity. 12/02/2018 3:30 PM EDT us Leonarda Mancera CNM HISTORICAL/NON ORDERABLE LABS Final Result [facility] [address] * Hm Colonoscopy (06/16/2013) us Historical Provider MD HEALTH MAINTENANCE Final Result from Last 3 Months or Most Recently Relevant to Health Maintenance Insurance [facility] C[facility] HOME OPTIONS (HMO D-SNP) DENTAL [facility] Care Teams Net Fisher Relationship Specialty Start Date End Date Diamond Ponce MD [address] [place] [phone] PCP - General Family Medicine 07/01/19
--- OUTSIDE RECORDS SUMMARY | 2024-08-02 13:00 | XMS_ITS | Encounter Summary ---
Author Organization [employer] Address [address] [place] [address] Care Team Providers Care Table And Desk Finisher Name Role Phone Diamond Ponce MD Primary Care Provide r Reason for Visit * Reason Onset Date Comments Prior Authorization 03/04/2023 Encounter Details Date Type Department Care Team ([facility] st Contact Info) Description 03/04/2023 Telephone [facility] ADULT DENTAL [address] [place] [address] Aron No DDS [address] [place] [phone] Prior Authorization Social History Tobacco Use Types [...] 3:00 PM EDT Office Visit [facility] [address] [place] [address] Tiffanie Hilario DDS [address] [place] [address] documented as of this encounter Visit Diagnoses Not on filedocumented in this encounter Additional Health Concerns Assessment Noted Time PHQ-9 Depression Total Score: 0 04/24/19 23 2:26 PM EST documented as of this encounter Care Teams Table And Desk Finisher Relationship Specialty Start Date End Date Diamond Ponce MD [address] [place] [address] PCP - General Family Medicine 07/01/19 documented as of this encounter
--- OUTSIDE RECORDS SUMMARY | 2024-08-02 13:00 | XMS_ITS | Encounter Summary ---
Author Organization [employer] Address [address] [facility] 7t [place] [address] Care Team Providers Care Visual Basic .Net Developer Name Role Phone Diamond Ponce MD Primary Care Provide r Reason for Visit * Reason Comments Abdominal Pain Encounter Details Date Type Department Care Team ([facility] st Contact Info) Description 08/02/2024 9:40 AM EDT Office Visit [facility] [address] [place] [address] Clyde Chase MD [address] [place] [address] Chest pain, unspecified type (Primary Dx) Social [...] (145 lb) 08/02/2024 9:30 AM EDT Height - - Body Mass Index 29.29 06/15/2024 1:39 PM EDT documented in this encounter Progress Notes * Clyde Chase MD - 08/02/2024 9:40 AM EDTAssociated Order(s): ECG 12 lead Pre-Procedure Diagnose(s): Chest pain, unspecified type Post-Procedure Diagnose(s): Chest pain, unspecified type Subjective Patient ID: Eveline Do is a 69 y.o. female. 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 Last bowel movement was this AM + headache. No fever, n/v/d, urinary sx. No h/o abd surgery except for YANE. Lives with . Never smoked. No EtOH. Patient Active Problem List Diagnosis Chronic pain [...] examination Decreased sensation of foot Fractured dental mormonism with loss of material Dyspnea on exertion Partial edentulism Sore throat Age-related osteoporosis without current pathological fracture Neck pain Acute maxillary sinusitis Colon cancer screening Dermatitis Ill-fitting dentures Dry skin dermatitis Vaginal itching Other hemorrhoids Pain of upper abdomen Chest wall pain The following portions of the chart were reviewed this encounter and updated as appropriate: Review of Systems Constitutional: Negative for fever. Respiratory: Negative for shortness of breath. Cardiovascular: Negative for chest pain. Gastrointestinal: Positive for abdominal pain. Skin: Negative for rash. Neurological: Positive for headaches. Objective Physical Exam Constitutional: Appearance: Normal appearance. HENT: Nose: Nose normal. Eyes: Conjunctiva/sclera: Conjunctivae normal. Pupils: Pupils are equal, round, and reactive to light. Cardiovascular: Rate and Rhythm: Normal rate and regular rhythm. Heart sounds: No murmur heard. Pulmonary: Effort: Pulmonary effort is normal. Breath sounds: Normal breath sounds. Chest: Comments: Tenderness along the left lower chest wall around the costal margin. Abdominal: General: Abdomen is flat. Palpations: Abdomen is soft. There is no mass. Tenderness: There is no abdominal tenderness. Musculoskeletal: General: Normal range of motion. Cervical back: No tenderness. Skin: Findings: No rash. Neurological: Mental Status: She is alert. Gait: Gait is intact. Psychiatric: Mood and Affect: Mood normal. Behavior: Behavior normal. ECG 12 lead Date/Time: 08/02/2024 10:34 AM Performed by: Clyde Chase MD Authorized by: Clyde Chase MD Previous ECG: Previous ECG: Unavailable Interpretation: Interpretation: abnormal Details: PRASHANT Rate: ECG rate: 63 ECG rate assessment: normal Rhythm: Rhythm: sinus rhythm Ectopy: Ectopy: none QRS: QRS axis: Normal QRS intervals: Normal QRS conduction: normal T waves: T waves: inverted Inverted: V3 Q waves: Abnormal Q-waves: present Q waves: III Other findings: Other findings: LAE Assessment/Plan Diagnoses and all orders for this visit: Chest pain, unspecified type EKG: no acute findings. Presumptive noncardiac chest pain. Due to patient's degree of discomfort and constant pain for the past 4 days, she will be going to the ED now for further evaluation. - ECG 12 lead * Jesenia Macias RN - 08/02/2024 9:40 AM EDT Expect called to [facility] ED per verbal request per Dr. Chase. [facility] ED staff given verbal report and verbalized understanding. [facility] ED to F/U as needed. documented in this encounter Plan of Treatment Upcoming Encounters Date Type Department Care Team (Late st Contact Info) Description 08/12/2024 3:00 PM EDT Office Visit [facility] D[facility] [address] [place] [address] Trujillo-Aguayo, Tiffanie, DDS [address] [place] [address] Pending Results Name Type Priority Associated Diagnoses Date /Time ECG 12 lead ECG Routine Chest pain, unspecified type 08/02/2024 12:44 PM EDT documented as of this encounter Procedures Procedure Name Priority Date/Time Associated Diagnosis Comments ECG 12-LEAD Routine 08/02/2024 12:44 PM EDT Chest pain, unspecified type documented in this encounter Visit Diagnoses Diagnosis Chest pain, unspecified type- Primary documented in this encounter Additional Health Concerns Assessment Noted Time PHQ-9 Depression Total Score: 0 05/23/19 24 1:38 PM EST documented as of this encounter Care Teams Visual Basic .Net Developer Relationship Specialty Start Date End Date Diamond Ponce MD [address] [place] [address] PCP - General Family Medicine 07/01/19 documented as of this encounter
--- OUTSIDE RECORDS SUMMARY | 2024-08-02 13:00 | XMS_ITS | Encounter Summary ---
Author Organization [employer] Address [address] [facility] 7[address] [place] [address] Care Team Providers Care Rn Cardiac Cath Name Role Phone Diamond Ponce MD Primary Care Provide r Reason for Visit * Reason Onset Date Comments triage 04/23/2022 Encounter Details Date Type Department Care Team ([facility] st Contact Info) Description 04/23/2022 Telephone [facility] MED[facility] [address] [place], [place] [phone] Diamond Ponce MD [address] [place] [address] triage Social History Tobacco Use Types Packs/Day [...] caller The caller accepted this outcome speaks mohawk documented in this encounter Plan of Treatment Upcoming Encounters Date Type Department Care Team (Late st Contact Info) Description 08/12/2024 3:00 PM EDT Office Visit [facility] ADULT D[facility] [address] [place] [address] Tiffanie Hilario DDS [address] [place] [address] documented as of this encounter Visit Diagnoses Not on filedocumented in this encounter Care Teams Rn Cardiac Cath Relationship Specialty Start Date End Date Diamond Ponce MD [address] [place] [address] PCP - General Family Medicine 07/01/19 documented as of this encounter
--- OUTSIDE RECORDS SUMMARY | 2024-08-02 13:00 | XMS_ITS | Encounter Summary ---
Author Organization [employer] Address [address] [facility] 7[address] [place] [address] Care Team Providers Care Paper Reel Operator Name Role Phone Diamond Ponce MD Primary Care Provide r Encounter Details Date Type Department Care Team (Late st Contact Info) Description 06/29/2024 Orders Only [facility] [address] [place], [place] [phone] Carla Mckeon Social History Tobacco Use Types [...] Description 08/12/2024 3:00 PM EDT Office Visit [facility] [address] [place], [place] [phone] Tiffanie Hilario, DDS [address] [place] [address] documented as of this encounter Procedures Procedure Name Priority Date/Time Associated Diagnosis Comments BIOPSY VAGINAL Routine 05/04/2024 12:00 AM EST documented in this encounter Results * (ABNORMAL) Biopsy vaginal (05/04/2024 12:00 AM EST) us Historical Provider IN CLINIC/BEDSIDE ORDERAB LES Final Result [facility] documented in this encounter Visit Diagnoses Not on filedocumented in this encounter Additional Health Concerns Assessment Noted Time PHQ-9 Depression Total Score: 0 05/23/19 24 1:38 PM EST documented as of this encounter Care Teams Paper Reel Operator Relationship Specialty Start Date End Date Diamond Ponce MD [address] [place] [address] PCP - General Family Medicine 07/01/19 documented as of this encounter
--- OUTSIDE RECORDS SUMMARY | 2024-08-02 13:00 | XMS_ITS | Encounter Summary ---
Author Organization [employer] Address [address] [facility] [address] [place] [address] Care Team Providers Care Pump Attendant Name Role Phone Diamond Ponce MD Primary Care Provide r Encounter Details Date Type Department Care Team (Late st Contact Info) Description 03/29/2022 [facility] Information Management [address] [place] [address] Diamond Ponce MD [address] [place] [address] Social History Tobacco Use Types Packs/Day Years [...] Description 08/12/2024 3:00 PM EDT Office Visit [facility] [address] [place] [address] Cassandra-Tiffanie Aguayo, DDS [address] [place], [place] [phone] documented as of this encounter Visit Diagnoses Not on filedocumented in this encounter Care Teams Pump Attendant Relationship Specialty Start Date End Date Diamond Ponce MD [address] [place] [address] PCP - General Family Medicine 07/01/19 documented as of this encounter
--- OUTSIDE RECORDS SUMMARY | 2024-08-02 13:00 | XMS_ITS | Encounter Summary ---
Author Organization [employer] Address [address] [facility] [address] [place] [address] Care Team Providers Care Civil Cad Tech Name Role Phone Diamond Ponce MD Primary Care Provide r Reason for Visit * Reason Onset Date Comments Med Refill 04/23/2022 Encounter Details Date Type Department Care Team ([facility] st Contact Info) Description 04/23/2022 Telephone [facility] [address] [place], [place] [phone] Diamond Ponce MD [address] [place] [address] Med Refill Social History Tobacco Use Types [...] the past. * Telephone Encounter - Joe Mathieu - 04/23/2022 3:51 PM EST Tc from pt requesting med refill Artificial tears documented in this encounter Plan of Treatment Upcoming Encounters Date Type Department Care Team (Late st Contact Info) Description 08/12/2024 3:00 PM EDT Office Visit [facility] ADULT D[facility] [address] [place], [place] [phone] Tiffanie Hilario, CONIS [address] [place], [place] [phone] documented as of this encounter Visit Diagnoses Not on filedocumented in this encounter Care Teams Civil Cad Tech Relationship Specialty Start Date End Date Diamond Ponce MD [address] [place], [place] [phone] PCP - General Family Medicine 07/01/19 documented as of this encounter
--- OUTSIDE RECORDS SUMMARY | 2024-08-02 13:01 | XMS_ITS | Encounter Summary ---
Author Organization [employer] [facility] Address [address] [facility] [address] [place] [address] Care Team Providers Care Gore Maker Name Role Phone Diamond Ponce MD Primary Care Provide r Encounter Details Date Type Department Care Team (Late st Contact Info) Description 12/11/2022 Orders Only [facility] [address] [place], [place] [phone] Provider, Historical, Social History Tobacco Use Types [...] 3:00 PM EDT Office Visit [facility] ADULT D[facility] [address] [place], [place] [phone] Trujillo-Aguayo, Tiffanie, DDS [address] [place], [place] [phone] documented as of this encounter Procedures Procedure [...] documented as of this encounter Care Teams Gore Maker Relationship Specialty Start Date End Date Diamond Ponce MD [address] [place] [address] PCP - General Family Medicine 07/01/19 documented as of this encounter
--- OUTSIDE RECORDS SUMMARY | 2024-08-02 13:01 | XMS_ITS | Encounter Summary ---
Author Organization [employer] Address [address] [facility] [address] [place] [address] Care Team Providers Care Plumbing And Heating Mechanic Name Role Phone Diamond Ponce MD Primary Care Provide r Encounter Details Date Type Department Care Team (Latest Contact Info) Description 12/12/2020 Abstract [facility] CONVERSIONS Dental, Provider, DDS Social History Tobacco [...] Description 08/12/2024 3:00 PM EDT Office Visit [facility] ADULT DENTAL [address] [place] [address] Trujillo-Aguayo, Tiffanie, DDS [address] [place] [address] documented as of this encounter Visit Diagnoses Not on filedocumented in this encounter Care Teams Plumbing And Heating Mechanic Relationship Specialty Start Date End Date Diamond Ponce MD [address] [place] [address] PCP - General Family Medicine 07/01/19 documented as of this encounter
[2024-08-02] MEDS: Ketorolac Tromethamine 30 MG/ML VIAL 15 MG IM (13:12)
[2024-08-02] MEDS: Acetaminophen 325 MG TABLET 650 MG PO (13:12)
[2024-08-02] MEDS: Lidocaine 4 % Patch ADH..PATCH 1 PATCH TRANSDERMA (13:13)
[2024-08-02 13:14] VITALS: BP 166/88; PULSE 72; RESP 16; O2SAT 98
[2024-08-02 13:18] VITALS: PULSE 72
[2024-08-02 13:23] LABS: Alanine Aminotransferase 18 U/L (0-31); Albumin Level 4.1 g/dL (3.5-5.0); Anion Gap 15 (12-20); Aspartate Amino Transferase 37 U/L (5-31); Bilirubin Total 0.6 mg/dL (0.0-1.0); Blood Urea Nitrogen 19 mg/dL (9-16); Calcium 9.5 mg/dL (8.4-10.2); Carbon Dioxide 23 mmol/L (22-29); Chloride 105 mmol/L (96-108); Creatinine Clr Calc Pharmacy 56.6; Estimated Glomerular Filt Rate > 60; Glucose Random 140 mg/dL (60-115); Lipase 22 U/L (8-78); Potassium 4.7 mmol/L (3.3-5.1); Sodium 138 mmol/L (135-145); Total Protein 7.5 g/dL (6.5-8.0)
[2024-08-02 13:47] LABS: Troponin-I High Sensitivity < 2.7 ng/L (<3.5-17.0)
[2024-08-02 14:19] LABS: Alkaline Phosphatase 74 U/L (39-117)
[2024-08-02 14:27] VITALS: BP 166/88; PULSE 72; RESP 16; TEMP -17.7; TEMP 0; O2SAT 98
== END 2024-08-02 14:28 | disposition home or self-care (01) ==
PROVIDERS: Physician Assistant; Emergency Provider Student in an Organized Health Care Education/Training Program; PCP Internal Medicine
DX: R07.89 Other chest pain (principal); E11.9 Type 2 diabetes mellitus without complications; E78.00 Pure hypercholesterolemia, unspecified; Z79.899 Other long term (current) drug therapy
CPT/HCPCS: 36415; 71101; 80053; 83690; 84484; 85025; 93005; 96372; 99284; 99285; J1885

== ENCOUNTER → 2024-08-02 11:20 | Outpatient (BNV) | payer OTHER, SELFPAY | PROVIDERS: Emergency Provider Student in an Organized Health Care Education/Training Program; PCP Internal Medicine; Visit Provider Internal Medicine Cardiovascular Disease | DX: R07.9 Chest pain, unspecified (principal) | CPT/HCPCS: 93010 ==

== ENCOUNTER → 2024-08-02 11:38 | Outpatient (BNV) | payer OTHER, SELFPAY | PROVIDERS: Emergency Provider Student in an Organized Health Care Education/Training Program; PCP Internal Medicine; Visit Provider Radiology Diagnostic Radiology | DX: R07.81 Pleurodynia (principal) | CPT/HCPCS: 71101 ==

== ENCOUNTER 2024-08-17 10:56 | Emergency (ER) | payer OTHER, SELFPAY ==
--- NOTE | ~2024-08-17 | CT_ITS ---
EXAMINATION: CT CHEST WITHOUT CONTRAST CLINICAL INFORMATION: Tender in the left anterior lower ribs. COMPARISON: June 21, 2024. TECHNIQUE: Multidetector volumetric CT imaging of the chest was done. Axial MIP volume rendering provided. Sagittal and coronal reformatted images were obtained. This CT examination was performed using dose optimization techniques as appropriate, variously including the following: *Automated exposure control *Adjustment of mA and/or kV according to patient size (this includes techniques or standardized protocols for targeted exams where dose is matched to indication/reason for exam; i.e. extremities or head) *Use of iterative reconstruction technique FINDINGS: ELECTRICAL CONTROL ASSEMBLER: Low lung volume. Cardiomediastinal silhouette appears larger. Upper extremities at the both sides of the head. Patient's large body habitus. LUNGS: 3 mm noncalcified pulmonary nodule, right upper lung lobe. 2 mm calcified pulmonary nodule in the periphery of the right upper lung lobe likely granuloma. Bilateral multifocal patchy pulmonary groundglass. No bronchiectasis. No honeycombing. MEDIASTINUM: Mild prominent mediastinal lymph nodes. No aneurysm, thoracic aorta. Calcified plaque in the coronary arteries. No pneumomediastinum. No gross pericardial effusion. CORONARY ARTERY CALCIFICATION: Calcified plaque. PLEURA: No pleural effusion. No pneumothorax. No gross calcified pleural plaques. AXILLA: No lymphadenopathy. UPPER ABDOMEN: Small hiatal hernia. Collapsed appearance of the splenic colonic flexure. Focal calcification posterior inferior right hepatic lobe. OSSEOUS STRUCTURES: No acute fracture, ribs. Multilevel spondylosis without acute fracture or listhesis. Probable intraosseous hemangioma at T12 vertebra. CT/CT chest wo IV con IMPRESSION: No acute rib fracture. Concerning pulmonary edema in the correct clinical settings versus pneumonitis. Stable subcentimeter pulmonary nodule, right upper lung lobe. Fleischner guidelines were followed. Electronically signed by: Lamonte Curtis MD 08/17/2024 03:37 PM EDT
--- NOTE | 2024-08-17 10:57 | ECG_ITS ---
Test Reason : chest pain Blood Pressure : */* mmHG Vent. Rate : 88 BPM Atrial Rate : 88 BPM P-R Int : 134 ms QRS Dur : 72 ms QT Int : 366 ms P-R-T Axes : 41 31 33 degrees QTcB Int : 442 ms Normal sinus rhythm Cannot rule out Inferior infarct , age undetermined T wave abnormality, consider anterior ischemia Abnormal ECG When compared with ECG of 02-Aug-2024 11:20, Minimal criteria for Inferior infarct are now Present T wave inversion now evident in Anterior leads Referred By: Generic ED Physician Electronically Signed By: LEIA ARMSTRONG MD
[2024-08-17 11:08] VITALS: BP 114/70; PULSE 96; RESP 18; TEMP 36.3; O2SAT 98; BMI 28.9
[2024-08-17 11:39] LABS: MANUAL DIFF FLAG NO
[2024-08-17 11:40] LABS: Basophils Percent Auto 0.3 % (0-2); Eosinophils Absolute Auto 0.2 X10*3/uL (0.0-0.4); Eosinophils Percent Auto 2.8 % (0-4); Hematocrit 43.8 % (37.0-47.0); Hemoglobin 14.2 g/dl (12.0-16.0); Imm Gran Abs Auto 0.02 X10*3/uL (0.00-0.03); Imm Gran Pct Auto 0.3 % (0.0-0.4); Lymphocytes Absolute Auto 1.2 X10*3/uL (1.2-4.9); Lymphocytes Percent Auto 18.1 % (20-40); Mean Corpuscular HGB Conc 32.4 g/dl (31.0-35.0); Mean Corpuscular Hemoglobin 31.4 pg (27.0-33.0); Mean Corpuscular Volume 96.9 fL (80.0-98.0); Mean Platelet Volume 9.7 fL (9.4-12.3); Monocytes Absolute Auto 0.5 X10*3/uL (0.1-1.2); Monocytes Percent Auto 7.3 % (2-11); Neutrophils Absolute Auto 4.6 x10*3/uL (2.0-8.3); Neutrophils Percent Auto 71.2 % (45-73); Platelet Count 261 X10*3/uL (160-400); Red Blood Count 4.52 X10*6/uL (4.20-5.50); Red Cell Distribution Width 11.9 % (11.0-16.0); White Blood Count 6.4 X10*3/uL (4.8-10.8)
[2024-08-17 11:41] LABS: Appearance Urine Clear; Color Urine Dark Yellow; Glucose Urine UA Negative (Negative); Leukocyte Esterase Urine Moderate (2+) (Negative); Nitrite Urine Negative (Negative); Specific Gravity - Urine 1.025 (1.005-1.025); UMIC TRIGGER UACC YES; Urine Blood Negative (Negative); Urine Ketones Trace mg/dL (Negative); Urine Protein Trace mg/dL (Neg-Trace)
--- NOTE | 2024-08-17 11:44 | ED_ITS ---
HPI - Chest Pain General Chief Complaint: Abdominal Pain Stated Complaint: Chest pain Time Seen by Provider: 08/17/24 11:43 History of Present Illness ED Provider: Stephon Delaney MD HPI narrative: 69-year-old female with chronic abdominal pain, chronic constipation, GERD, hiatal hernia with left upper quadrant pain fullness early satiety. Related Data Home Medications ?Medication ?Instructions ?Recorded ?Confirmed baclofen 20 mg tablet 1 tab PO TID 10/26/21 07/07/24 ibuprofen 800 mg tablet 1 tab PO TID PRN Pain 10/26/21 07/07/24 blood sugar diagnostic (FreeStyle #10 ea 01/15/22 Lite Strips) cetirizine 10 mg tablet 10 mg PO DAILY 01/15/22 07/07/24 diclofenac sodium 1 % topical gel 2 g topical QID muscle pain 01/15/22 07/07/24 lancets 33 gauge (TRUEplus Lancets) #100 ea 01/15/22 Previous Rx's ?Medication ?Instructions ?Recorded bisacodyl 5 mg tablet,delayed 10 mg (2 x 5 mg) PO BEDTIME 2 days 01/02/24 release (Dulcolax (bisacodyl)) #4 tabs polyethylene glycol 3350 17 17 g PO DAILY #510 grams 06/21/24 gram/dose oral powder (Miralax) linaclotide 290 mcg capsule 290 mcg PO QAM 30 days #30 caps 06/29/24 (Linzess) prednisone 20 mg tablet 60 mg (3 x 20 mg) PO DAILY Asthma 08/02/24 5 days #15 tabs Allergies Allergy/AdvReac Type Severity Reaction Status Date / Time tramadol Allergy Severe Hallucinati Verified 08/17/24 11:12 ons morphine Allergy Intermediate Hallucinati Verified 08/17/24 11:12 ons PENDING SALE TO [facility] Past Medical History Medical History (Updated 08/18/24 @ 00:01 by Jenaro Vera) COVID-19 Pre-op examination Diabetes type 2, controlled High cholesterol Surgical History H/O colonoscopy H/O: hysterectomy H/O section Social History Social History Alcohol intake: never Patient Tobacco Use Status: Never used Tobacco Advance Directives Date on File: 10/26/21 Current occupation: [employer] handed Physical Exam 2 Vital Signs: Vital Signs: Last Vital Signs Temp 97.5 F 08/17/24 17:08 Pulse 64 08/17/24 17:08 Resp 14 08/17/24 17:08 BP 152/81 H 08/17/24 17:08 Pulse Ox 99 08/17/24 17:08 O2 Del Method Room Air 08/17/24 17:08 BMI result Body Mass Index 28.9 Medications Administered Discontinued Medications Generic Name Dose Route Start Last Admin Trade Name Juana PRN Reason Stop Dose Admin Lidocaine 1 patch 08/17/24 13:39 08/17/24 13:44 Lidocaine 4 % Patch Adh..Patch TRANSDERMA 08/17/24 13:40 1 patch ONCE ONE Administration Protocol Medical Decision Making Medical Decision Making [facility] Narrative: 69-year-old female with left upper quadrant and left lower costal margin discomfort without trauma to the chest wall. She is exquisitely tender with light palpation of the ribs but there is no ecchymosis crepitus or deformity of the chest wall or trauma history to suggest injury here. Maybe intercostal strain given the severity and focal tenderness of got a CT to exclude rib fractures or a metastatic lesion. She does have a hiatal hernia and history of GERD/gastritis and this was considered as a possible etiology but less likely given the focality for tenderness. ECG nonischemic and reassuring sinus rhythm Lab Data 08/17/24 11:32 08/17/24 11:32 Labs: Lab Results 08/17/24 08/17/24 Range/Units 11:31 11:32 WBC 6.4 (4.8-10.8) X10*3/uL RBC 4.52 (4.20-5.50) X10*6/uL Hgb 14.2 (12.0-16.0) g/dl Hct 43.8 (37.0-47.0) % MCV 96.9 (80.0-98.0) fL MCH 31.4 (27.0-33.0) pg MCHC 32.4 (31.0-35.0) g/dl RDW 11.9 (11.0-16.0) % Plt Count 261 (160-400) X10*3/uL MPV 9.7 (9.4-12.3) fL Immature Gran % (Auto) 0.3 (0.0-0.4) % Neut % (Auto) 71.2 (45-73) % Lymph % (Auto) 18.1 L (20-40) % Stark % (Auto) 7.3 (2-11) % Eos % (Auto) 2.8 (0-4) % Baso % (Auto) 0.3 (0-2) % Lymph # (Auto) 1.2 (1.2-4.9) X10*3/uL Stark # (Auto) 0.5 (0.1-1.2) X10*3/uL Eos # (Auto) 0.2 (0.0-0.4) X10*3/uL Baso # (Auto) 0.0 (0.0-0.2) X10*3/uL Abs Immat Gran (auto) 0.02 (0.00-0.03) X10*3/uL Absolute Neuts (auto) 4.6 (2.0-8.3) x10*3/uL Absolute Nucleated RBC 0.000 (0.0-0.012) X10*3/uL Nucleated RBC % (auto) 0.0 (0.0-0.2) /100WBC Sodium 142 (135-145) mmol/L Potassium 4.6 (3.3-5.1) mmol/L Chloride 108 (96-108) mmol/L Carbon Dioxide 29 (22-29) mmol/L Anion Gap 10 L (12-20) BUN 19 H (9-16) mg/dL Creatinine 0.86 (0.5-1.4) mg/dL Estim Creat Clear Calc 49.8 Estimated GFR > 60 Random Glucose 167 H (60-115) mg/dL Calcium 9.2 (8.4-10.2) mg/dL Total Bilirubin 0.4 (0.0-1.0) mg/dL Direct Bilirubin 0.1 (0.0-0.5) mg/dL AST 25 (5-31) U/L ALT 21 (0-31) U/L Alkaline Phosphatase 93 (39-117) U/L Troponin I High Sens < 2.7 (<3.5-17.0) ng/L Total Protein 7.0 (6.5-8.0) g/dL Albumin 4.1 (3.5-5.0) g/dL Lipase 35 (8-78) U/L Urine Color Dark Yellow Urine Appearance Clear Urine pH 6.0 (5.0-9.0) Ur Specific [place] 1.025 (1.005-1.025) Urine Protein Trace (Neg-Trace) mg/dL Urine Glucose (UA) Negative (Negative) mg/dL Urine Ketones Trace (Negative) mg/dL Urine Blood Negative (Negative) Urine Nitrite Negative (Negative) Ur Leukocyte Esterase Moderate (2+) H (Negative) Urine RBC 0-2 (0-2) /HPF Urine WBC 11-20 (0-5) /HPF Ur Squamous Epith Cells 0-2 (0-2) /HPF Urine Bacteria None Seen (None Seen) Hyaline Casts 0-2 (0-2) /LPF Influenza Type A (PCR) NEGATIVE (Negative) Influenza Type B (PCR) NEGATIVE (Negative) RSV RNA Qual (PCR) NEGATIVE (Negative) SARS-CoV-2 RNA (RT-PCR) NEGATIVE (Negative) Discharge Plan Discharge Clinical Impression: Chest wall discomfort Patient Disposition: Home, Self-Care Instructions: Chest Pain (ED) Additional Instructions: _ DISCHARGE DIAGNOSES: Pain and tenderness below the left breast on the chest wall likely musculoskeletal HISTORY OF PRESENTATION: Pain without injury to the left the inferior chest EMERGENCY DEPARTMENT COURSE,TESTS, TREATMENTS: While in the ED today you had a CT scan which ruled out injury to the chest wall bones or rib fractures. Your EKG was normal and reassuring. There was some suggestion of pulmonary edema or inflammation or fluid in the lungs but this is likely an over reading on the radiology study as you do not have any respiratory symptoms if you develop respiratory symptoms such as cough difficulty breathing return back to emergency DISCHARGE MEDICATIONS: ?[We have made no changes to your regular medication regimen] FOLLOW-UP: ?Call your primary or general physician soon as possible to discuss your symptoms, your ED visit and to discuss follow up plans Call your primary doctor for follow up INSTRUCTIONS ?& RETURN PRECAUTIONS: If any symptoms change first call your primary physician, if it is after-hours your primary doctors office should have a provider head of digital advertising & integration you can speak with. If the symptoms are severe or very concerning to you then call 911 or return to the ED. Return for severe shortness of breath severe or intractable chest pain Stephon Delaney MD Emergency Physician [facility] Prescriptions: No Action ibuprofen 800 mg tablet 1 tab PO TID PRN (Reason: Pain) baclofen 20 mg tablet 1 tab PO TID polyethylene glycol 3350 [Miralax] 17 gram/dose powder 17 g PO DAILY Qty: 510 0RF prednisone 20 mg tablet 60 mg PO DAILY 5 Days Qty: 15 0RF cetirizine 10 mg tablet 10 mg PO DAILY (DME) lancets [TRUEplus Lancets] 33 gauge misc See Rx Instructions .ROUTE BID Qty: 100 Rx Instructions: As directed (DME) FreeStyle Lite Strips Strip See Rx Instructions .ROUTE BID Qty: 10 Rx Instructions: As directed diclofenac sodium 1 % gel 2 g topical QID bisacodyl [Dulcolax (bisacodyl)] 5 mg tablet,delayed release (DR/EC) 10 mg PO BEDTIME 2 Days Qty: 4 0RF Linzess 290 mcg capsule 290 mcg PO QAM 30 Days Qty: 30 6RF Rx Instructions: Take 1st thing in the morning with a full glass of water Interventions: ED Discharge Assessment Last Done: 08/17/24 17:08 Discharge Date/Time: 08/17/24 17:25 Print Language: Other
[2024-08-17 11:57] LABS: Bacteria Urine None Seen (None Seen); Hyaline Casts Urine 0-2 /LPF (0-2); RBC Urine 0-2 /HPF (0-2); Squamous Epithelial Cell Urine 0-2 /HPF (0-2); UACC Culture Trigger YES
[2024-08-17 11:58] LABS: Alanine Aminotransferase 21 U/L (0-31); Albumin Level 4.1 g/dL (3.5-5.0); Alkaline Phosphatase 93 U/L (39-117); Anion Gap 10 (12-20); Aspartate Amino Transferase 25 U/L (5-31); Bilirubin Direct 0.1 mg/dL (0.0-0.5); Bilirubin Total 0.4 mg/dL (0.0-1.0); Blood Urea Nitrogen 19 mg/dL (9-16); Calcium 9.2 mg/dL (8.4-10.2); Carbon Dioxide 29 mmol/L (22-29); Chloride 108 mmol/L (96-108); Creatinine Clr Calc Pharmacy 49.8; Estimated Glomerular Filt Rate > 60; Glucose Random 167 mg/dL (60-115); Lipase 35 U/L (8-78); Potassium 4.6 mmol/L (3.3-5.1); Sodium 142 mmol/L (135-145)
[2024-08-17 12:02] LABS: Troponin-I High Sensitivity < 2.7 ng/L (<3.5-17.0)
[2024-08-17 12:17] VITALS: BP 132/68; PULSE 71; RESP 13; O2SAT 98
--- OUTSIDE RECORDS SUMMARY | 2024-08-17 12:20 | XMS_ITS | Encounter Summary ---
Author Organization [employer] Address [address] [facility] 7t [place] [address] Care Team Providers Care Mold Yarn Supervisor Name Role Phone Diamond Ponce MD Primary Care Provide r Reason for Visit * Reason Onset Date Comments Med Refill 04/23/2022 Encounter Details Date Type Department Care Team ([facility] st Contact Info) Description 04/23/2022 Telephone [facility] [address] [place] [address] Diamond Ponce MD [address] [place], [place] [phone] Med Refill Social History Tobacco Use Types [...] PM EST documented as of this encounter Functional Status * Over the past 2 weeks, how often have you been bothered by any of the following problems? Question Answer Date of Assessment Author Patient Health Questionnaire -2 Score 0 04/24/2022 2:26 PM Catalina Dugan MA * Over the past 2 weeks, how often have you been bothered by any of the following problems? Question Answer Date of Assessment Author Little interest or pleasure in doing things Not at all 04/24/2022 2:26 PM Catalina Dugan MA Feeling down, depressed, or hopeless Not at all 04/24/2022 2:26 PM Catalina Dugan MA Trouble falling or staying asleep, or sleeping too much Not at all 04/24/2022 2:26 PM Lana Dugan MA Feeling tired or having little energy Not at all 04/24/2022 2:26 PM Catalina Dugan MA Poor appetite or overeating Not at all 04/24/2022 2: 26 PM Lana Dugan MA Feeling bad about yourself - or that you are a failure or have let yourself or your family down Not at all 04/24/2022 2:26 PM Catalina Dugan MA Trouble concentrating on things, such as reading the newspaper or watching television Not at all 04/24/2022 2:26 PM Catalina Dugan MA Moving or speaking so slowly that other people could have noticed? Or the opposite - being so fidgety or restless that you have been moving around a lot more than usual. Not at all 04/24/2022 2:26 PM Lana Dugan MA Thoughts that you would be better off or hurting yourself in some way Not at all 04/24/2022 2:26 PM Yolanda Dugan MA Patient Health Questionnaire-9 Score 0 04/24/2022 2:26 PM Koby Dugan MA documented as of this encounter Miscellaneous Notes * Telephone Encounter - Doris Brooks LPN - 04/23/2022 4:00 PM EST Please review eye drops were prescribed by you in the past. * Telephone Encounter - Joe Murdock - 04/23/2022 3:51 PM EST Tc from pt requesting med refill Artificial tears documented in this encounter Plan of Treatment Not on file documented as of this encounter Visit Diagnoses Not on filedocumented in this encounter Care Teams Mold Yarn Supervisor Relationship Specialty Start Date End Date Diamond Ponce MD [address] [place] [address] PCP - General Family Medicine 07/01/19 documented as of this encounter
[2024-08-17 12:23] LABS: Influenza A PCR NEGATIVE (Negative); Influenza B PCR NEGATIVE (Negative); Resp Syncy Virus RNA Qual PCR NEGATIVE (Negative); SARS COV2 PCR INHOUSE NEGATIVE (Negative)
[2024-08-17 13:27] VITALS: BP 122/54; PULSE 67; RESP 12; TEMP 36.5; O2SAT 100
[2024-08-17] MEDS: Lidocaine 4 % Patch ADH..PATCH 1 PATCH TRANSDERMA (13:44)
[2024-08-17 16:06] VITALS: BP 152/81; PULSE 64; RESP 14; TEMP 36.4; O2SAT 99
[2024-08-17 17:08] VITALS: BP 152/81; PULSE 64; RESP 14; TEMP 36.4; O2SAT 99
== END 2024-08-17 17:25 | disposition home or self-care (01) ==
PROVIDERS: Emergency Provider Emergency Medicine; PCP Internal Medicine
DX: R07.89 Other chest pain (principal); R10.2 Pelvic and perineal pain; R94.31 Abnormal electrocardiogram [ECG] [EKG]; K59.00 Constipation, unspecified; Z79.899 Other long term (current) drug therapy; Z03.818 Encounter for observation for suspected exposure to other biological agents ruled out
CPT/HCPCS: 0241U; 71250; 80048; 80076; 81001; 83690; 84484; 85025; 87086; 93005; 99284; 99285

== ENCOUNTER → 2024-08-17 10:57 | Outpatient (BNV) | payer OTHER, SELFPAY | PROVIDERS: Emergency Provider Emergency Medicine; PCP Internal Medicine; Visit Provider Internal Medicine Cardiovascular Disease | DX: R94.31 Abnormal electrocardiogram [ECG] [EKG] (principal); R07.9 Chest pain, unspecified | CPT/HCPCS: 93010 ==

== ENCOUNTER → 2024-08-17 14:04 | Outpatient (BNV) | payer OTHER, SELFPAY | PROVIDERS: Emergency Provider Emergency Medicine; PCP Internal Medicine; Visit Provider Radiology Diagnostic Radiology | DX: R91.1 Solitary pulmonary nodule (principal) | CPT/HCPCS: 71250 ==

== ENCOUNTER 2024-08-27 13:05 | Outpatient (AMB) | payer OTHER, SELFPAY ==
--- OUTSIDE RECORDS SUMMARY | 2024-08-27 13:07 | XMS_ITS | Encounter Summary ---
Author Organization [employer] Address [address] [facility] 7t [place] [address] Care Team Providers Care Sales Promotion Manager Name Role Phone Diamond Ponce MD Primary Care Provide r Reason for Visit * Reason Onset Date Comments Med Refill 04/23/2022 Encounter Details Date Type Department Care Team ([facility] st Contact Info) Description 04/23/2022 Telephone [facility] MEDICINE [address] [place] [address] Diamond Ponce MD [address] [place], [place] [phone] Med Refill Social History Tobacco Use Types [...] Care Team (Late st Contact Info) Description 09/20/2024 10:45 AM EDT Office Visit [facility] MED[facility]INE [address] [place], [place] [phone] Diamond Ponce MD [address] [place], [place] [phone] documented as of this encounter Visit Diagnoses Not on filedocumented in this encounter Care Teams Sales Promotion Manager Relationship Specialty Start Date End Date Diamond Ponce MD [address] [place] [phone] PCP - General Family Medicine 07/01/19 documented as of this encounter
--- NOTE | 2024-08-27 13:10 | A.OFFVIS_ITS ---
Vital Signs 08/27/24 13:29 Height 4 ft 11 in Weight 145 lb BMI 29.3 BP 134/64 Blood Pressure Location Rt brachial Position Sitting Pulse 74 Pulse Source Pulse Oximeter Pulse Oximetry (%) 99 Oxygen Delivery Method Room Air Intake Visit Reasons: Linzess Intake Note: Established patient for mgmt of GERD, CIC, chronic abd pain. Laura Gore tx. CC; Attempted to use virtual gsa coordinator for intake with [place]. Labor Employment Associate struggled with interpretation and was never able to fully comprehend some of the questions that were being asked. According to the small amount of information obtained, pt states that she is still taking linzess and is doing OK with the medication. Pt had reported a problem with her lungs lately but the gsa coordinator was never able to clarify what the pt meant by this. Pt not actively in any respiratory distress. Labor Employment Associate Required: Yes Labor Employment Associate Services: Labor Employment Associate Present Labor Employment Associate Name: Tez Varma [id number] + [facility] [place] Information Interpreted: clinical only Accompanied by: Self / Same As Patient Allergies tramadol Allergy (Severe, Verified 08/27/24 13:32) Hallucinations morphine Allergy (Intermediate, Verified 08/27/24 13:32) Hallucinations HPI HPI Linzess: Details: Assessment & Plan (1) Chronic idiopathic constipation: Code(s): K59.04 - Chronic idiopathic constipation Category: Medical (2) Abdominal bloating: Code(s): R14.0 - Abdominal distension (gaseous) Category: Medical (3) GERD (gastroesophageal reflux disease): Code(s): K21.9 - Gastro-esophageal reflux disease without esophagitis Category: Medical Plan YEMENI #Tachira Live She has not heard RE: colonoscopy, I re send the note to schedulers. She is NOT moving her bowels, there was some confusion at first because she says ?that pill you give me does not work and another doctor gave it to me to and it does not do anything. ? I ask her what it looks like and she says it is a red jelly pill, so this is Colace. I showed her a picture of the Linzess and she says ?yes this worked when I had it but I have been out of it for 3 months. ? We will restart her Linzess 290 micro g and then evaluate her response. She continues on her famotidine with good control of her GERD. Return office visit next available Medications: Refilled simethicone after meals 180 mg PO BID 60 caps 6RF 30 days R14.0 - Abdominal distension (gaseous) linaclotide (Linzess) Take 1st thing in the morning with a full glass of water 290 mcg PO QAM 30 caps 6RF 30 days K59.04 - Chronic idiopathic constipation famotidine (Pepcid) 40 mg PO BEDTIME 90 tabs 3RF 90 days K21.9 - Gastro- esophageal reflux disease without esophagitis Discontinued docusate sodium (Colace) Discontinued Reason: Patient no longer taking 200 mg (2 x 100 mg) PO DAILY 14 caps 0RF polyethylene glycol 3350 (Miralax) Discontinued Reason: Duplicate 17 grams PO DAILY 30 days 510 grams 11RF K59.04 - Chronic idiopathic constipation Assessment & Plan (1) Chronic idiopathic constipation: Code(s): K59.04 - Chronic idiopathic constipation Category: Medical (2) Abdominal bloating: Code(s): R14.0 - Abdominal distension (gaseous) Category: Medical (3) GERD (gastroesophageal reflux disease): Code(s): K21.9 - Gastro-esophageal reflux disease without esophagitis Category: Medical Plan YEMENI #Ochoa Live She has not heard RE: colonoscopy, I re send the note to schedulers. She is NOT moving her bowels, there was some confusion at first because she says ?that pill you give me does not work and another doctor gave it to me to and it does not do anything. ? I ask her what it looks like and she says it is a red jelly pill, so this is Colace. I showed her a picture of the Linzess and she says ?yes this worked when I had it but I have been out of it for 3 months. ? We will restart her Linzess 290 micro g and then evaluate her response. She continues on her famotidine with good control of her GERD. Return office visit next available Medications: Refilled simethicone after meals 180 mg PO BID 60 caps 6RF 30 days R14.0 - Abdominal distension (gaseous) linaclotide (Linzess) Take 1st thing in the morning with a full glass of water 290 mcg PO QAM 30 caps 6RF 30 days K59.04 - Chronic idiopathic constipation famotidine (Pepcid) 40 mg PO BEDTIME 90 tabs 3RF 90 days K21.9 - Gastro-esophageal reflux disease without esophagitis Discontinued docusate sodium (Colace) Discontinued Reason: Patient no longer taking 200 mg (2 x 100 mg) PO DAILY 14 caps 0RF polyethylene glycol 3350 (Miralax) Discontinued Reason: Duplicate 17 grams PO DAILY 30 days 510 grams 11RF K59.04 - Chronic idiopathic constipation COLONOSCOPY BIOPSY TODAY'S VISIT Lebanese #Yunior Bailon She received the Linzess but at 290mcg she is still not moving her bowels well. This is in addition to her Miralax and possibly, colace. I want her to bring her meds to next visit. She is supposed to be on Linzess 290, simethicone twice a day, famotidine at bedtime, and has Colace and MiraLax available to her at home. She is c/o pain in the LUQ, she says she has gone to the ER - her understanding is that her lungs are bad. ER seemed to think this is musculoskeletal - has thoracic spondylosis. If it is the colon r/t CIC will improve when bowels move. ROV 8 wee. 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 Review of Systems Const Details: glasses Denies fatigue, Denies fever(s), Denies night sweats, Denies poor appetite and Denies weight loss ENT Reports Normal hearing present, Denies dysphagia, Denies odynophagia, Denies throat swelling and Denies tongue swelling Card Reports no additional complaints and Reports dyspnea on exertion Resp Reports dyspnea on exertion GI Details: Reports abdominal pain, Denies melena, Denies bloating, Denies hematochezia, Reports constipation, Denies GI cramping, Denies dysphagia, Denies excessive flatus, Denies early satiety, Reports heartburn, Denies diarrhea, Denies nausea, Denies odynophagia, Denies vomiting and Denies hematemesis Reports flank pain Musc Reports back pain and Reports myalgias Skin/Breast Denies pruritus, Denies lesions, Denies rash and Denies jaundice Neuro Reports Normal hearing present and Denies Abnormal speech present Endo Denies fatigue Aller/Immun Denies throat swelling and Denies tongue swelling Physical Exam Vital Signs: Last Vital Signs Pulse 74 08/27/24 13:29 BP 134/64 08/27/24 13:29 Pulse Ox 99 08/27/24 13:29 Oxygen Delivery Method Room Air 08/27/24 13:29 BMI result Body Mass Index 29.3 Const General: cooperative, no acute distress, well developed and well groomed Nutritional Appearance: well nourished and obese Orientation/consciousness: oriented to person, oriented to place and oriented to time Limitations: language barrier HEENT Head: Yes normocephalic and Yes atraumatic Eyes General: appearance normal, both eyes and all related structures Pupils: Equal, round and reactive pupils present Neck Neck: Yes normal visual inspection and Yes no lymphadenopathy Thyroid: Thyroid normal Resp Effort & Inspection: normal respiratory effort and able to speak in complete sentences Auscultation: clear to auscultation bilaterally Cardio Rate: regular rate Rhythm: regular rhythm Heart sounds: Normal, physiologic split S2 sound present Peripheral pulses: radial pulses present and posterior tibial pulses present GI Inspection: Yes distended, No Abdominal panniculus present and Yes obesity Palpation (GI): Soft to palpation, Tenderness to palpation present (GI) in the LUQ, no guarding, not rigid and No hepatosplenomegaly present Percussion: Yes normal to percussion Auscultation: normal bowel sounds Rectal Exam - Female: deferred Skin General skin exam: no rashes or lesions noted, turgor normal, skin not dry, no jaundice, No spider nevi and no striae Rashes: no rashes Nails: normal Neuro General: oriented to person, oriented to place and oriented to time Cranial nerves: Yes Equal, round and reactive pupils present and Yes Normal hearing present Speech: No Abnormal speech present Extrem General: Yes normal to inspection, No clubbing, No cyanosis and No edema Psych Appearance: grossly normal and well kempt Mental Status: mental status grossly normal Speech and movement: Normal speech and movement present Affect: normal affect Attitude: cooperative Thought process: Normal thought process present and not confabulating Thought content: Normal thought content present Insight: Limited insight present (Psych) Judgement: Limited judgement present (Psych) Assessment & Plan Assessment & Plan (1) Chronic idiopathic constipation: Code(s): K59.04 - Chronic idiopathic constipation Category: Medical (2) GERD (gastroesophageal reflux disease): Code(s): K21.9 - Gastro-esophageal reflux disease without esophagitis Category: Medical (3) Dementia: Code(s): F03.90 - Unspecified dementia, unspecified severity, without behavioral disturbance, psychotic disturbance, mood disturbance, and anxiety Category: Medical (4) Chronic pain: Code(s): G89.29 - Other chronic pain Category: Medical Plan Lebanese #Yunior Live SHe received the Linzess but at 290mcg she is still not moving her bowels well. This is in addition to her Miralax and possibly, colace. I wabt her to bring her meds to next visit. She is c/o pain in the LUQ, she says she has gone to the ER - her understanding is that her lungs are bad. ER seemed to think this is musculoskeletal - has throacic spondylosis. If it is the colon r/t CIC will improve when bowels move. ROV 8 wee. COLONOSCOPY BIOPSY Medications: New famotidine (Pepcid) 40 mg PO BEDTIME 30 tabs 6RF K21.9 - Gastro-esophageal reflux disease without esophagitis Changed From bisacodyl 10 mg (2 x 5 mg) PO BEDTIME 2 days 4 tabs 0RF K59.04 - Chronic idiopathic constipation To bisacodyl (Dulcolax (bisacodyl)) 10 mg (2 x 5 mg) PO BEDTIME 60 tabs 6RF 30 days K59.04 - Chronic idiopathic constipation Coding Level of Care Code Est Pt Level 3 (28439) Diagnoses Chronic idiopathic constipation K59.04 GERD (gastroesophageal reflux disease) K21.9 Dementia F03.90 Chronic pain G89.29
[2024-08-27 13:29] VITALS: BP 134/64; PULSE 74; O2SAT 99; BMI 29.3
== END 2024-08-27 13:41 | disposition home or self-care (01) ==
LOC: HO.HGI 13:05
PROVIDERS: PCP Nurse Practitioner Family; Visit Provider Nurse Practitioner
DX: K59.04 Chronic idiopathic constipation (principal); K21.9 Gastro-esophageal reflux disease without esophagitis; F03.90 Unspecified dementia, unspecified severity, without behavioral disturbance, psychotic disturbance, mood disturbance, and anxiety; G89.29 Other chronic pain
CPT/HCPCS: 99213

== ENCOUNTER → 2024-08-27 13:05 | Outpatient (BNVA) | payer OTHER, SELFPAY | PROVIDERS: PCP Nurse Practitioner Family; Visit Provider Nurse Practitioner | DX: K59.04 Chronic idiopathic constipation (principal); K21.9 Gastro-esophageal reflux disease without esophagitis; F03.90 Unspecified dementia, unspecified severity, without behavioral disturbance, psychotic disturbance, mood disturbance, and anxiety; G89.29 Other chronic pain | CPT/HCPCS: 99212 ==

== ENCOUNTER 2024-09-01 11:17 | Outpatient (REF) | payer OTHER, SELFPAY ==
--- NOTE | ~2024-09-01 | XR_ITS ---
EXAMINATION: XR CHEST 2 VIEWS HISTORY: persistent left chest wall pain; question rib abnormalities COMPARISON: Comparison is made with the prior examination dated 08/02/2024. FINDINGS: PA and lateral views of the chest are submitted. The lungs are expanded and clear. There is no pleural effusion, pneumothorax, or pulmonary vascular congestion. The heart is normal in size. The bones are intact. XR/XR chest 2V IMPRESSION: No acute cardiopulmonary abnormality. Electronically signed by: Marc Hart MD 09/01/2024 11:50 AM EDT
--- OUTSIDE RECORDS SUMMARY | 2024-09-01 12:58 | XMS_ITS | Encounter Summary ---
Author Organization [employer] Address [address] [facility] 7t [place] [address] Care Team Providers Care Dental Ceramist Name Role Phone Diamond Ponce MD Primary Care Provide r Reason for Visit * Reason Onset Date Comments Med Refill 04/23/2022 Encounter Details Date Type Department Care Team ([facility] st Contact Info) Description 04/23/2022 Telephone [facility] [address] [place] [address] Diamond Ponce MD [address] [place], [place] [phone] Med Refill Social History Tobacco Use Types [...] Care Team (Late st Contact Info) Description 09/15/2024 8:30 AM EDT Office Visit [facility] [address] [place] [address] Cassandra-Tiffanie Aguayo, DDS [address] [place] [address] 09/20/2024 10:45 AM EDT Office Visit [facility] [address] [place] [address] Diamond Ponce MD [address] [place] [address] documented as of this encounter Visit Diagnoses Not on filedocumented in this encounter Care Teams Dental Ceramist Relationship Specialty Start Date End Date Diamond Ponce MD [address] [place] [phone] PCP - General Family Medicine 07/01/19 documented as of this encounter
== END 2024-09-01 11:18 | disposition home or self-care (01) ==
LOC: HO.HHCX 11:17
PROVIDERS: Visit Provider Nurse Practitioner
DX: R07.89 Other chest pain (principal)
CPT/HCPCS: 71046

== ENCOUNTER → 2024-09-01 11:17 | Outpatient (BNV) | payer OTHER, SELFPAY | PROVIDERS: Visit Provider Radiology Diagnostic Radiology | DX: R07.89 Other chest pain (principal) | CPT/HCPCS: 71046 ==

== ENCOUNTER 2024-09-02 08:18 | Outpatient (REF) | payer OTHER, SELFPAY ==
--- OUTSIDE RECORDS SUMMARY | 2024-09-02 08:21 | XMS_ITS | Data Portability ---
Author Organization [facility] Address [address] [place] [address] Care Team Providers Care Watch Train Assembler Name Role Phone HIM CCA OTHER Assessment Encounter Date Assessment Date Assessment LastModified by Organization Details LastModified Time 06/24/2024 06/24/2024 I have reviewed and agree with the assessment and plan as documented by the staff analyst. I provided real time medical direction for this encounter and was immediately available to provide additional phone based assistance as needed. History as noted by staff analyst. Pt with history of chronic pain, dementia, HTN, HLD, DM2, LBP w/sciatica. Pt speaks only maltese, history and evaluation done with staff analyst with help of library sales consultant. Recent urgent care visit note from 06/23 [...] Orders ibuprofen 600 mg tablet 2024 025 [facility], [address] [place] [address], [id number], 10:34:32 lidocaine 4 % topical patch 2024 025 [facility], [address] [place] [address], [id number], 15:49:38 ketorolac 60 mg/2 mL intramuscul ar solution 2024 025 btils Not available 14:33:58 Patient TargetsNo targets recorded. Patient InstructionsNo instructions recorded. Reason for Referral None Reported. Medical Equipment None Reported. Allergies Allergen ID Allergen Name Allergen Category Reaction Reaction Severity Criticality Documentation Date Start Date Code Code System Note Provider Name and Address Organization Details Recorded Time 91304 morphine medicatio n Not available Not available Not available 06/24/2024 7052 RxNorm Not Available [facility] - production 10:43:27 55115 tramadol medicatio n Not available Not available Not available 06/24/2024 65088 RxNorm Not Available [facility] - production 10:43:27 [...] SNOMED-CT Code Diagnosis ICD10 Code Diagnosis Note [id number] Efren Johnston MD Main - [facility] [address] [place] [phone] 06/24/2024 14:19:25 06/24/2024 15:40:43 Closed fracture lumbar vertebra [id number] S32.008D Health Concerns Section Related Observation LastModified by Organization Detai ls LastModified Time None Recorded Concern Status LastModified by Organization Details LastModified Time None Recorded Advance Directives Directive None Recorded Payers Insurance Date Sequence Insurance Name Policy Number Policy Bae Covered Member ID Bae Member ID Guarantor Name 06/24/2024 1 [facility] - DOS ON OR AFTER 2022 - DUAL ELIGIBLE - [facility] OPTIONS AND ONE CARE (MEDICARE REPLACEMENT/AD VANTAGE - HMO) Eveline Herrera [id number] Eveline Herrera Notes Date Note Type Note Provider Name and Address Organization Details Recorded Time 06/24/2024 text/html This was a supervised home visit with staff analyst Rishi Heard. HPI: She fell on 06/21 [...] ................... ................... ................... ................... ................... ................... ........ Laser Operator Note From Orquidea Rishi: SC6 dispatched to the address listed above [...] 15. Lung sounds clear in all morales. [facility] noted patient is Slovenian speaking only and daughter translated for [facility]. Patient reports that she had a [...] urinating. Patient vital signs obtained as noted. [facility] consulted, provided orders for 30mg Toradol IM and advised that he would send prescription for Ibuprofen and Lidocaine patch to patient preferred pharmacy. 30mg Toradol IM administered in left deltoid without incident, patient rights verified. Red flags discussed with patient and advised to call 911 if condition worsens. SC6 clear. [facility] Medication Orders: ketorolac 60 mg/2 mL intramuscular solution: Administered ................... ................... ................... ................... ................... ................... ................... ........ [facility] Consulted: Efren Johnston ................... ................... ................... ................... ................... ................... ................... ........ Disposition: Fulfilled Efren Johnston MD [address] [place] [address],[facility], [place], [phone], [employer] Systems[employer]EDA 06/24/2024 15:32:16 OBGyn Episode No OBEpisode recorded.
[2024-09-02 11:32] LABS: C Reactive Protein 0.12 mg/dL (< or = 0.50); Lactate Dehydrogenase 286 U/L (122-220)
[2024-09-02 11:33] LABS: B Type Natriuretic Peptide 86 pg/mL (<100)
[2024-09-02 12:21] LABS: Erythrocyte Sedimentation Rate 9 MM/HR (0-20)
== END 2024-09-02 08:19 | disposition home or self-care (01) ==
LOC: HO.HHCL 08:18
PROVIDERS: Visit Provider Nurse Practitioner
DX: R07.89 Other chest pain (principal)
CPT/HCPCS: 36415; 83615; 83880; 85652; 86140

== ENCOUNTER 2024-09-21 09:04 | Outpatient (REF) | payer OTHER, SELFPAY ==
--- OUTSIDE RECORDS SUMMARY | 2024-09-21 09:34 | XMS_ITS | Data Portability ---
Author Organization [employer], [facility] Address [address] [place] [address] Care Team Providers Care Can Reforming Machine Operator Name Role Phone HIM CCA OTHER Assessment Encounter Date Assessment Date Assessment LastModified by Organization Details LastModified Time 06/24/2024 06/24/2024 I have reviewed and agree with the assessment and plan as documented by the bowling ball patcher. I provided real time medical direction for this encounter and was immediately available to provide additional phone based assistance as needed. History as noted by bowling ball patcher. Pt with history of chronic pain, dementia, HTN, HLD, DM2, LBP w/sciatica. Pt speaks only irish, history and evaluation done with bowling ball patcher with help of sales and service representative. Recent urgent care visit note from 06/23 [...] Orders ibuprofen 600 mg tablet 2024 025 [facility], [address] [place] [address], [phone], 10:34:32 lidocaine 4 % topical patch 2024 025 [facility], [address] [place] [address], [id number], 15:49:38 ketorolac 60 mg/2 mL intramuscul ar solution 2024 025 btils Not available 14:33:58 Patient TargetsNo targets recorded. Patient InstructionsNo instructions recorded. Reason for Referral None Reported. Medical Equipment None Reported. Allergies Allergen ID Allergen Name Allergen Category Reaction Reaction Severity Criticality Documentation Date Start Date Code Code System Note Provider Name and Address Organization Details Recorded Time 45853 morphine medicatio n Not available Not available Not available 06/24/2024 7052 RxNorm Not Available [facility] - production 5 10:43:27 90543 tramadol medicatio n Not available Not available Not available 06/24/2024 78857 [facility] 10:[facility]27 Medications Name Sig Start [...] SNOMED-CT Code Diagnosis ICD10 Code Diagnosis Note [id number] Efren Johnston MD Main - [facility] [address] [place] [id number] 06/24/2024 14:19:25 06/24/2024 15:40:43 Closed fracture lumbar vertebra 957234511 S32.008D Health Concerns Section Related Observation LastModified by Organization Detai ls LastModified Time None Recorded Concern Status LastModified by Organization Details LastModified Time None Recorded Advance Directives Directive None Recorded Payers Insurance Date Sequence Insurance Name Policy Number Policy Bae Covered Member ID Bae Member ID Guarantor Name 06/24/2024 1 [facility] - DOS ON OR AFTER 2022 - DUAL ELIGIBLE - FDC OPTIONS AND ONE CARE (MEDICARE REPLACEMENT/AD VANTAGE - HMO) Eveline Herrera [id number] Eveline Herrera Notes Date Note Type Note Provider Name and Address Organization Details Recorded Time 06/24/2024 text/html This was a supervised home visit with bowling ball patcher Rishi Heard. HPI: She fell on 06/21 [...] ................... ................... ................... ................... ................... ................... ........ [facility] Nurse Triage Notes (Cecy Rios): Reason For Request: Pain in her back Chief Complaints: Back Pain PMH: Osteoporosis, Diabetes Mellitus Type 2 PMH Reviewed at 06/24/2024 - 10:43 Allergies Reviewed at 06/24/2024 - 10:43 ................... ................... ................... ................... ................... ................... ................... ........ Bottom Scrubber Note From Rishi Heard: SC6 dispatched to the address listed above for the report of a female alliance party with back pain. Arrival on scene, patient was found inside apartment with family seated in chair, alert and oriented x4, patent airway, breathing non labored speaking in complete sentences, skin WPD in no immediate distress. +/= Chest rise. -SOB, -CP, -NVD, -Trauma, -Fever. GCS 15. Lung sounds clear in all morales. [facility] noted patient is Welsh speaking only and daughter translated for [facility]. Patient reports that she had a [...] urinating. Patient vital signs obtained as noted. [facility] consulted, provided orders for 30mg Toradol IM and advised that he would send prescription for Ibuprofen and Lidocaine patch to patient preferred pharmacy. 30mg Toradol IM administered in left deltoid without incident, patient rights verified. Red flags discussed with patient and advised to call 911 if condition worsens. [facility] clear. [facility] Medication Orders: ketorolac 60 mg/2 mL intramuscular solution: Administered ................... ................... ................... ................... ................... ................... ................... ........ [facility] Consulted: Efren Jhonston ................... ................... ................... ................... ................... ................... ................... ........ Disposition: Fulfilled Efren Johnston MD [address] [place] [address],[address] [facility], [place], [address], [employer] - MetaCDNFREDA CARROLL 06/24/2024 15:32:16 OBGyn Episode No OBEpisode recorded.
--- OUTSIDE RECORDS SUMMARY | 2024-09-21 09:34 | XMS_ITS | Patient Health Record ---
Author Organization [facility] Address [address] [place] [address] Care Team Providers Care End Lathe Operator Name Role Phone Jacey VILLAGOMEZ, Tesha Primary Care Provider U Marc Bob Unavailable [phone] Reason For Referral No Information Medications Medication SIG (Take, Route, Frequency, Duration) Notes Start Date End Date Status Colyte with Flavor Packs 240 GM as directed Orally as directed for 1 dose 04/13/2013 Active Bentyl 10 MG 1-2 capsules Orally QID prn abdominal pain/gas/cramps for 30 day(s) 04/13/2013 Active Problems Problem Type SNOMED Code ICD Code Onset Dates Problem Status W/U Status Risk Notes Problem Irritable bowel syndrome (03960630) Irritable bowel syndrome (564.1) Active confirmed Problem Generalized abdominal pain (932977978) Abdominal pain, generalized (789.07) Active confirmed Problem Screening for colon cancer (538497465) Screening for colon cancer (V76.51) Active confirmed Plan Of Treatment Future Test Test Name Order Date COLONOSCOPY 04/13/2013 Insurance Providers Payer Name Payer Address Payer Phone Subscriber Number Group Number Insured Name Patient Relationship to Insured Coverage Start Date Coverage End Date [facility] [address] [address] [place], [place] [id number] [employer] Self - patient is the insured Medical (General) History Medical History History ICD Code Denies WA,DM,CVA,Lung disease,renal dise ase Surgical History Surgery Date(Month/Year) hysterectomy varicose vein on left leg
[2024-09-21 09:59] LABS: D Dimer High Sensitivity < 150 NG/ML
== END 2024-09-21 09:05 | disposition home or self-care (01) ==
LOC: HO.LAB 09:04
PROVIDERS: PCP Internal Medicine; Visit Provider Emergency Medicine
DX: R07.89 Other chest pain (principal)
CPT/HCPCS: 36415; 85379; 87338

== ENCOUNTER 2025-01-03 13:28 | Emergency (ER) | payer OTHER, SELFPAY ==
--- NOTE | ~2025-01-03 | CT_ITS ---
CLINICAL HISTORY: right arm numbness CT head without contrast Comparison: CT/AK/SR - CT HEAD/BRAIN WO IV CON - 06/21/24 10:27 EDT Findings: Involutional change and nonspecific white matter hypodensity. No intracranial mass, midline shift, hydrocephalus, or acute hemorrhage. Orbits, paranasal sinuses, and mastoid air cells are unremarkable. No skull fracture Impression: 1. No acute findings This document has been electronically signed by: Gaviota Street MD on 01/03/2025 16:28:55
--- NOTE | ~2025-01-03 | XR_ITS ---
CLINICAL HISTORY: weakness 1 view chest x-ray Comparison: CR/SR - XR CHEST 2V - 04/19/24 15:27 EST Findings: No acute pulmonary disease. Normal size heart. Questionable nodular opacity overlying the right aspect of the heart measuring 2.4 cm is unchanged from previous exam and may be from osseous degenerative changes however is indeterminate. Chest CT is recommended on an outpatient/nonemergent basis for further characterization. IMPRESSION: 1. Questionable nodular opacity overlying the right aspect of the heart measuring 2.4 cm is unchanged from previous exam and may be from osseous degenerative changes however is indeterminate. Chest CT is recommended on an outpatient/nonemergent basis for further characterization. 2. No acute pulmonary disease. This document has been electronically signed by: Stephon Frost DO on 01/04/2025 09:47:46
--- OUTSIDE RECORDS SUMMARY | 2025-01-03 13:40 | XMS_ITS | Encounter Summary ---
Author Organization [employer] Address [address] [place] [address] Care Team Providers Care Marketing Sales Consultant Name Role Phone Diamond Ponce MD Primary Care Provide r Encounter Details Date Type Department Care Team ([facility] st Contact Info) Description 01/03/2025 1:40 PM EDT Office Visit [facility] [address] [place] [address] Daija Garrison MD [address] [place] [address] Weakness of right upper extremity (Primary Dx) [...] sent to ED via ambulance, I called [facility] and the rest of signout to [...] FOR 2 DAYS Blood Glucose Monitoring Suppl ([employer] [place] Lite) w/Device kit Use to monitor blood [...] MG capsule take one at bed time Cdspbpem-Qmdzcsvxhx-Rdhotdagh (FT Triple Antibiotic) 3.5-400-5000 ointment Apply 1 Application topically Once per day. 28.4 g 1 [place]-3 Fatty Acids (OMEGA 3 500 PO) 1 [...] sent to ED via ambulance, I called [facility] ED and the rest of signout to [...] Description 03/11/2025 2:30 PM EST Office Visit [facility] [address] [place] [address] Diamond Ponce MD [address] [place] [address] documented as of this encounter Visit Diagnoses Diagnosis Weakness of right upper extremity- Primary Other musculoskeletal symptoms referable to limbs documented in this encounter Additional Health Concerns Assessment Noted Time PHQ-9 Depression Total Score: 0 05/23/19 24 1:38 PM EST documented as of this encounter Care Teams Marketing Sales Consultant Relationship Specialty Start Date End Date Diamond Ponce MD [address] [place], [place] [phone] PCP - General Family Medicine 07/01/19 documented as of this encounter
[2025-01-03 13:42] VITALS: BP 117/71; BP 139/62; PULSE 56; PULSE 60; RESP 16; TEMP 36.3; O2SAT 97; BMI 25.9
--- NOTE | 2025-01-03 13:50 | ECG_ITS ---
Test Reason : weakness Blood Pressure : */* mmHG Vent. Rate : 56 BPM Atrial Rate : 56 BPM P-R Int : 144 ms QRS Dur : 86 ms QT Int : 438 ms P-R-T Axes : 32 24 26 degrees QTcB Int : 422 ms Sinus bradycardia Nonspecific T wave abnormality Abnormal ECG When compared with ECG of 17-Aug-2024 11:03, Vent. rate has decreased by 32 bpm Referred By: Mimi Carrillo Electronically Signed By: Mati Vigil
--- NOTE | 2025-01-03 15:10 | ED.GENADULT ---
HPI - General Adult General Chief complaint: General Medical Stated complaint: RIGHT SIDE TINGLING X4H FROM WALKIN PER EMS Time Seen by Provider: 01/03/25 15:09 History of Present Illness ED Provider: David MATTA narrative: The patient is a 69-year-old woman who says that yesterday she had an episode of numbness and tingling in the right thumb and forefinger. It lasted for several minutes but eventually got better. Today she had a recurrence of the same symptoms but then the numbness seemed to travel upper right arm so that it encompassed her right arm and even a the right side of her chest. She was very concerned and she took public transportation to the [facility] where she had her blood pressure checked and an ambulance was called and she was sent here. She has not had any sense of weakness in the hand. She has had no speech difficulty. No headache. No chest pain . She says that for the last several months she has felt very fatigued and has had a sense of dyspnea on exertion. Related Data Home Medications ?Medication ?Instructions ?Recorded ?Confirmed baclofen 20 mg tablet 1 tab PO TID 10/26/21 07/07/24 blood sugar diagnostic (FreeStyle #10 ea 01/15/22 Lite Strips) cetirizine 10 mg tablet 10 mg PO DAILY 01/15/22 07/07/24 diclofenac sodium 1 % topical gel 2 g topical QID muscle pain 01/15/22 07/07/24 lancets 33 gauge (TRUEplus Lancets) #100 ea 01/15/22 Previous Rx's ?Medication ?Instructions ?Recorded polyethylene glycol 3350 17 17 g PO DAILY #510 grams 06/21/24 gram/dose oral powder (Miralax) linaclotide 290 mcg capsule 290 mcg PO QAM 30 days #30 caps 06/29/24 (Linzess) bisacodyl 5 mg tablet,delayed 10 mg (2 x 5 mg) PO BEDTIME 30 08/27/24 release (Dulcolax (bisacodyl)) days #60 tabs famotidine 40 mg tablet (Pepcid) 40 mg PO BEDTIME #30 tabs 08/27/24 aspirin 81 mg tablet 81 mg PO DAILY #30 tabs 01/03/25 Allergies Allergy/AdvReac Type Severity Reaction Status Date / Time tramadol Allergy Severe Hallucinati Verified 01/03/25 13:45 ons morphine Allergy Intermediate Hallucinati Verified 01/03/25 13:45 ons Review of Systems Review of Systems: Yes all other systems are reviewed and are negative [facility] Past Medical History Medical History COVID-19 Pre-op examination Diabetes type 2, controlled High cholesterol Surgical History H/O colonoscopy H/O: hysterectomy H/O section Social History Social History Alcohol intake: never Patient Tobacco Use Status: Never used Tobacco Smoked in Last 30 Days: No Use of substances other than those prescribed or required for medical reasons: No Advance Directives: Yes Advance Directives on File: Yes Advance Directives Date on File: 10/26/21 Do you have a plan to hurt others: No Plan Current occupation: [employer] Physical Exam ED Vital Signs: Vital Signs - 24 hr 01/03/25 13:42 01/03/25 17:40 01/03/25 17:44 Temperature 97.4 F 97.4 F 97.4 F Pulse Rate 56 67 67 Respiratory Rate 16 12 12 Blood Pressure 139/62 124/58 L 124/58 L Pulse Oximetry 97 96 96 Oxygen Delivery Method Room Air Room Air Room Air BMI result Body Mass Index 25.9 Const Other: The patient is awake and alert. She is pleasant and cooperative. She does not appear obviously ill. HENMT Other: Face is symmetrical. Tongue is midline. Mucous membranes moist. Eyes Other: Pupils are round equal, conjunctivae are clear, extraocular movements are intact Neck Neck: Yes normal visual inspection, Yes full ROM and Yes no JVD Resp Effort & Inspection: normal respiratory effort Auscultation: clear to auscultation bilaterally Cardio Rate: regular rate Rhythm: regular rhythm Heart sounds: S1 normal heart sound present and S2 normal heart sound present GI Other: abdomen is soft and nontender Skin Other: The skin is dry and unremarkable Neuro Other: the patient was awake and alert, oriented and appropriate. Pupils were round equal, lateral gaze was intact bilaterally, the face was symmetrical, tongue was midline, speech was normal. She had intact strength in her extremities. No pronator drift. No definite sensory deficit. Gait was steady. no objective neurological deficits Appreciated. Extrem Other: There is no calf swelling or tenderness. No asymmetry. No peripheral edema. Medications Administered Discontinued Medications Generic Name Dose Route Start Last Admin Trade Name Juana PRN Reason Stop Dose Admin Aspirin 81 mg 01/03/25 17:23 01/03/25 17:38 Aspirin 81 Mg Tab.Chew PO 01/03/25 17:24 81 mg ONCE ONE Administration Medical Decision Making Medical Decision Making [facility] Narrative: The patient is a 69-year-old woman who had an episode of numbness and tingling in her right thumb and index finger yesterday. This episode resolved on its own. Today she had a recurrence of the same symptoms and she then felt that her whole arm was numb and tingling. Also the right side of her body. She went to the [facility] where an ambulance was called and she was sent here to the emergency room. On arrival here the patient does not seem to have any obvious objective neurological deficits. I was not convinced that she was having a stroke. Nevertheless we obtained a head CT which is unremarkable. She also complained of dyspnea on exertion. Lab Data 01/03/25 15:08 01/03/25 15:08 Labs: Lab Results 01/03/25 Range/Units 15:08 WBC 6.5 (4.8-10.8) X10*3/uL RBC 4.39 (4.20-5.50) X10*6/uL Hgb 13.9 (12.0-16.0) g/dl Hct 42.6 (37.0-47.0) % MCV 97.0 (80.0-98.0) fL MCH 31.7 (27.0-33.0) pg MCHC 32.6 (31.0-35.0) g/dl RDW 11.3 (11.0-16.0) % Plt Count 263 (160-400) X10*3/uL MPV 9.8 (9.4-12.3) fL Immature Gran % (Auto) 0.3 (0.0-0.4) % Neut % (Auto) 68.4 (45-73) % Lymph % (Auto) 18.9 L (20-40) % [place] % (Auto) 8.5 (2-11) % Eos % (Auto) 3.6 (0-4) % Baso % (Auto) 0.3 (0-2) % Lymph # (Auto) 1.2 (1.2-4.9) X10*3/uL [place] # (Auto) 0.6 (0.1-1.2) X10*3/uL Eos # (Auto) 0.2 (0.0-0.4) X10*3/uL Baso # (Auto) 0.0 (0.0-0.2) X10*3/uL Abs Immat Gran (auto) 0.02 (0.00-0.03) X10*3/uL Absolute Neuts (auto) 4.4 (2.0-8.3) x10*3/uL Absolute Nucleated RBC 0.000 (0.0-0.012) X10*3/uL Nucleated RBC % (auto) 0.0 (0.0-0.2) /100WBC PT 10.4 L (10.9-12.4) SEC INR 0.9 (0.9-1.1) Sodium 142 (135-145) mmol/L Potassium 5.0 (3.3-5.1) mmol/L Chloride 109 H (96-108) mmol/L Carbon Dioxide 29 (22-29) mmol/L Anion Gap 9 L (12-20) BUN 17 H (9-16) mg/dL Creatinine 0.85 (0.5-1.4) mg/dL Estim Creat Clear Calc 58.5 Estimated GFR > 60 Random Glucose 118 H (60-115) mg/dL Calcium 9.3 (8.4-10.2) mg/dL Magnesium 2.4 (1.6-2.6) mg/dL Total Bilirubin 0.3 (0.0-1.0) mg/dL AST 24 (5-31) U/L ALT 12 (0-31) U/L Alkaline Phosphatase 69 (39-117) U/L Troponin I High Sens < 2.7 (<3.5-17.0) ng/L NT-Pro-B Natriuret Pep 220.1 (<300) pg/mL Total Protein 6.8 (6.5-8.0) g/dL Albumin 4.1 (3.5-5.0) g/dL TSH 1.01 (0.32-4.0) uIU/mL COVID-19 (ALE) Negative (Negative) COVID-19 Clin Com See Note Influenza Type A (DEE) Negative (Negative) Influenza Type B (DEE) Negative (Negative) Influenza A & B Note See Note Independent Interpretation I performed an independent interpretation of an: EKG Interpretation: EKG at 14:02 showed sinus bradycardia at 56 beats per minute. No acute findings. Discharge Plan Discharge Clinical Impression: Right arm numbness Patient Disposition: Home, Self-Care Additional Instructions: Your testing in the emergency room today seems reassuring. Please start taking a baby aspirin daily. I have sent a prescription for baby aspirin to your pharmacy at the [facility]. Please contact your regular doctor's office in the morning to schedule a follow up appointment to discuss this episode further. Return to the emergency room if you feel significantly worse. Prescriptions: New aspirin 81 mg tablet 81 mg PO DAILY Qty: 30 0RF No Action baclofen 20 mg tablet 1 tab PO TID polyethylene glycol 3350 [Miralax] 17 gram/dose powder 17 g PO DAILY Qty: 510 0RF cetirizine 10 mg tablet 10 mg PO DAILY (DME) lancets [TRUEplus Lancets] 33 gauge misc See Rx Instructions .ROUTE BID Qty: 100 Rx Instructions: As directed (DME) FreeStyle Lite Strips Strip See Rx Instructions .ROUTE BID Qty: 10 Rx Instructions: As directed diclofenac sodium 1 % gel 2 g topical QID Linzess 290 mcg capsule 290 mcg PO QAM 30 Days Qty: 30 6RF Rx Instructions: Take 1st thing in the morning with a full glass of water bisacodyl [Dulcolax (bisacodyl)] 5 mg tablet,delayed release (DR/EC) 10 mg PO BEDTIME 30 Days Qty: 60 6RF famotidine [Pepcid] 40 mg tablet 40 mg PO BEDTIME Qty: 30 6RF Interventions: ED Discharge Assessment Last Done: 01/03/25 17:44 Discharge Date/Time: 01/03/25 17:53 Print Language: Martiniquais
[2025-01-03 15:14] LABS: MANUAL DIFF FLAG NO
[2025-01-03 15:18] LABS: White Blood Count 6.5 X10*3/uL (4.8-10.8)
[2025-01-03 15:19] LABS: Hematocrit 42.6 % (37.0-47.0); Hemoglobin 13.9 g/dl (12.0-16.0); Imm Gran Abs Auto 0.02 X10*3/uL (0.00-0.03); Imm Gran Pct Auto 0.3 % (0.0-0.4); Lymphocytes Absolute Auto 1.2 X10*3/uL (1.2-4.9); Mean Corpuscular HGB Conc 32.6 g/dl (31.0-35.0); Mean Corpuscular Hemoglobin 31.7 pg (27.0-33.0); Mean Corpuscular Volume 97.0 fL (80.0-98.0); NRBC Abs Auto 0.000 X10*3/uL (0.0-0.012); NRBC Pct Auto 0.0 /100WBC (0.0-0.2); Platelet Count 263 X10*3/uL (160-400); Red Blood Count 4.39 X10*6/uL (4.20-5.50)
[2025-01-03 15:24] LABS: INTERNATIONAL NORM RATIO 0.9 (0.9-1.1); Prothrombin Time 10.4 SEC (10.9-12.4)
--- NOTE | 2025-01-03 15:24 | PC.NURSE ---
patient a&ox3, iv previously inserted by ems, labs drawn, ekg performed, desk monitor applied- pt nsr/sb on monitor. bt denies chest pain-states she felt rt chest numbness that radiated down her rt arm. she has been tired, congested and felt sob with ambulation in the last week. swallow eval pt passed, neuro completly intact- pt has equal grasps and ambulates with a steady gait, smile symmetrical. plan of care ongoing
[2025-01-03 15:31] LABS: Alanine Aminotransferase 12 U/L (0-31); Albumin Level 4.1 g/dL (3.5-5.0); Alkaline Phosphatase 69 U/L (39-117); Anion Gap 9 (12-20); Aspartate Amino Transferase 24 U/L (5-31); Blood Urea Nitrogen 17 mg/dL (9-16); Calcium 9.3 mg/dL (8.4-10.2); Carbon Dioxide 29 mmol/L (22-29); Chloride 109 mmol/L (96-108); Creatinine Clr Calc Pharmacy 58.5; Estimated Glomerular Filt Rate > 60; Magnesium 2.4 mg/dL (1.6-2.6); Potassium 5.0 mmol/L (3.3-5.1); Sodium 142 mmol/L (135-145); Total Protein 6.8 g/dL (6.5-8.0)
[2025-01-03 15:35] LABS: NT Pro B Type Natriuretic Pept 220.1 pg/mL (<300)
--- OUTSIDE RECORDS SUMMARY | 2025-01-03 15:41 | XMS_ITS | Encounter Summary ---
Author Organization [employer] Address [address] [place] [address] Care Team Providers Care Silver Brazer Name Role Phone Diamond Ponce MD Primary Care Provide r Encounter Details Date Type Department Care Team ([facility] st Contact Info) Description 06/29/2024 Orders Only [facility] [address] [place], [place] [phone] Carla Mckeon Social History Tobacco Use Types [...] Description 03/11/2025 2:30 PM EST Office Visit [facility] [address] [place] [id number] Diamond Ponce MD [address] [place] [address] documented as of this encounter Procedures Procedure Name Priority Date/Time Associated Diagnosis Comments BIOPSY VAGINAL Routine 05/04/2024 12:00 AM EST documented in this encounter Results * (ABNORMAL) Biopsy vaginal (05/04/2024 12:00 AM EST) us Historical Provider IN CLINIC/BEDSIDE ORDERAB LES Final Result [facility] documented in this encounter Visit Diagnoses Not on filedocumented in this encounter Additional Health Concerns Assessment Noted Time PHQ-9 Depression Total Score: 0 05/23/19 24 1:38 PM EST documented as of this encounter Care Teams Silver Brazer Relationship Specialty Start Date End Date Diamond Ponce MD [address] [place] [address] PCP - General Family Medicine 07/01/19 documented as of this encounter
--- OUTSIDE RECORDS SUMMARY | 2025-01-03 15:41 | XMS_ITS | Clinical Summary ---
Author Organization [employer] Address [address] 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 Melatonin 3 MG capsule take one at bed time 09/27/19 22 Active TRUEplus Lancets 33G misc TEST BLOOD SUGAR TWICE DAILY DIRECTED 04/29/19 23 Active famotidine (Pepcid) 40 MG tablet Take 40 mg by mouth at bedtime. 06/20/19 23 Active glucose blood (FREESTYLE LITE) test stripIndications :Type 2 diabetes mellitus without complication, without long-term current use of insulin (HCC) 1 each by Other route every 12 (twelve) hours. 100 each 2 03/13/20 23 Active Linzess 290 MCG capsule TAKE 1 CAPSULE BY MOUTH EVERY MORNING WITH A FULL GLASS OF WATER 06/04/19 24 Active docusate sodium (Colace) 100 MG capsuleIndicatio ns:Constipation, unspecified constipation type Take 1 capsule (100 mg) by mouth at bedtime. 90 capsule 1 11/03/19 24 Active Simethicone Ultra Strength 180 MG capsuleIndicatio ns:Pain of upper abdomen TAKE 1 CAPSULE BY MOUTH TWICE DAILY AFTER MEALS 60 capsule 04/22/19 25 Active cetirizine (ZyrTEC) 10 MG tabletIndication s:Viral upper respiratory tract infection Take 1 tablet (10 mg) by mouth Once per day. 90 tablet 1 05/06/19 25 Active fluticasone (Flonase) 50 MCG/ACT nasal sprayIndications :Acute maxillary sinusitis, recurrence not specified Administer 1 spray into each nostril Once per day. 16 g 3 05/06/19 25 Active Additional Information Patient not taking.Reported on 09/15/2024 albuterol 108 (90 Base) MCG/ACT inhaler Inhale 2 puffs every 4 (four) hours if needed for wheezing or shortness of breath. 18 g 05/06/19 25 026 Active Spacer/Aero-Hold ing Chambers (AeroChamber Mini Chamber) device Use with albuterol MDI as needed 1 each 05/06/19 25 Active magnesium gluconate 250 MG tablet Take 1 tablet by mouth Once per day. Active Bellwood-3 Fatty Acids (OMEGA 3 500 PO) 1 tablet by mouth every other day Active alendronate (Fosamax) 70 MG tabletIndication s:Age-related osteoporosis without current pathological fracture take 1 tablet by mouth once a week with 6 to 8 oz of water 30 min before first food of day. do not lie down for 30 minutes 12 tablet 05/27/19 25 Active Diclofenac Sodium 1 % gelIndications:C ostochondritis APPLY 2 GM TOPICALLY TO THE AFFECTED AREA IF NEEDED FOR PAIN 100 g 06/24/19 25 Active lidocaine (Lidoderm) 5 % patchIndications :Chest wall pain Apply 1 patch topically Once per day. Remove & discard patch within 12 hours or as directed by MD. May use 2 patches at once. 60 patch 2 06/24/19 25 Active ibuprofen 800 MG tablet Take 1 tablet by mouth every 6 (six) hours if needed for mild pain. Active FT ClearLax 17 GM/SCOOP powder Take 17 g by mouth Once per day. 06/22/19 25 Active carboxymethylcel lulose (Artificial Tears) 1 % ophthalmic solutionIndicati ons:Dry eyes Administer 1 drop into both eyes 3 times daily. 15 mL 3 07/01/19 25 026 Active Blood Glucose Monitoring Suppl (FreeStyle Mccalla Lite) w/Device kitIndications:T ype 2 diabetes mellitus without complication, without long-term current use of insulin (HCC) Use to monitor blood sugar twice daily 1 kit 07/15/19 25 Active celecoxib (CeleBREX) 100 MG capsuleIndicatio ns:Chest wall pain Take 1 capsule (100 mg) by mouth 2 times daily. 60 capsule 08/21/19 25 026 Active baclofen (Lioresal) 10 MG tabletIndication s:Muscle pain Take one tablet TID PRN 60 tablet 09/02/19 25 Active D3 Super Strength 50 MCG (2000 UT) capsuleIndicatio ns:Vitamin D deficiency TAKE 1 CAPSULE BY MOUTH EVERY MORNING 30 capsule 11 09/15/19 25 Active triamcinolone (Kenalog) 0.1 % creamIndications :Dry skin dermatitis APPLY TOPICALLY IN THE MORNING AND AT BEDTIME NEEDED FOR PAIN AND SWELLING 30 g 1 10/01/19 25 Active atorvastatin (Lipitor) 40 MG tabletIndication s:Essential hypertension Take 1 tablet (40 mg) by mouth Once per day. 90 tablet 1 10/30/19 25 Active gabapentin (Neurontin) 100 MG capsule TAKE 1 CAPSULE BY MOUTH AT BEDTIME NEEDED FOR PAIN 30 capsule 11/03/19 25 Active bisacodyl (Dulcolax) 5 MG EC tablet TAKE 2 TABLETS BY MOUTH EVERY DAY AT BEDTIME FOR 2 DAYS Active polyvinyl alcohol (Liquifilm Tears) 1.4 % ophthalmic solution INSTILL 1 DROP IN EACH EYE THREE TIMES DAILY Active Reguloid 28.3 % powder MIX 1 TABLESPOONFUL IN WATER AND TAKE TWICE DAILY TO THREE TIMES DAILY IF TOLERATED 11/02/19 25 Active acetaminophen (Tylenol 8 Hour) 650 MG ER tablet TAKE 1 TABLET BY MOUTH EVERY 8 HOURS NEEDED FOR MILD PAIN. DO NOT BREAK, CRUSH, DISSOLVE OR CHEW 09/29/19 25 Active Neomycin-Bacitra ariana-Polymyxin (FT Triple Antibiotic) 3.5-400-5000 ointmentIndicati ons:Skin abrasion Apply 1 Application topically Once per day. 28.4 g 1 12/22/19 25 Active ketoconazole (NIZOral) 2 % shampooIndicatio ns:Seborrheic dermatitis Apply topically 2 (two) times a week. 120 mL 2 12/24/19 25 Active acetaminophen (Tylenol) 500 MG tablet Take 2 tablets (1,000 mg) by mouth every 6 (six) hours if needed for moderate pain or fever for up to 25 doses. 50 tablet 06/24/19 25 025 Discontinu ed(Therapy completed) amoxicillin-clav ulanate (Augmentin) 875-125 MG tabletIndication s:Acute otitis media, unspecified otitis media type Take 1 tablet by mouth 2 times daily for 7 days. 14 tablet 12/22/19 25 025 Active Problems Problem Noted Date Diagnosed Date Weakness of right upper extremity 01/03/2025 Assessment & Plan (01/03/2025 2:13 PM EDT): Given rapid progression of symptoms and presence of risk factors namely DM and HTN, a CVA needs to be ruled out. Patient will be sent to ED via ambulance, I called [facility] and the rest of signout to deyvi Templeton PA and specified that there has been only 2 hours since onset of symptoms, in case she has an ischemic event, she may be eligible for thrombolytic therapy. I explained POC to patient and she agreed with it. Alternatively, patient can follow-up with PCP after discharge, rule out complex migraine versus anxiety. Skin abrasion 12/21/2024 Acute otitis media 12/21/2024 Abdominal bloating 08/31/2024 Abnormal uterine bleeding 08/31/2024 Anxiety 08/31/2024 Chronic idiopathic constipation 08/31/2024 Closed fracture of transvers e process of lumbar vertebra (CMS/HCC) 08/31/2024 COVID-19 08/31/2024 GERD (gastroesophageal reflux disease) Migraine headache 08/31/2024 Nausea 08/31/2024 Osteoarthritis of left shoulder 08/31/2024 Osteoarthritis of right shoulder 08/31/2024 Pre-op examination 08/31/2024 Shoulder pain 08/31/2024 Chest pain 08/31/2024 Depression 08/31/2024 Hypercholesterolemia 08/31/2024 Headache 08/31/2024 Diabetes type 2, controlled 08/31/2024 Acute costochondritis 08/31/2024 Left-sided chest wall pain 06/15/2024 Assessment & Plan (09/01/2024 7:38 PM EDT): -this appears to be chronic problem based on chart review -DDX include: rib or muscle contusion/ strain, osteomyelitis, malignancy, pericarditis or pleural effusion -Chest CT w/o contrast completed in ED 08/17 resulted No acute rib fracture. Concerning pulmonary edema in the correct clinical settings versus pneumonitis. Stable subcentimeter pulmonary nodule, right upper lung lobe. There are no constitutional or persistent respiratory complaints, and O2 WNL which is not supportive of pneumonitis. -considered trial of prednisone however she declines benefit when rx'ed the ED -considered ECHO to rule out pericarditis or pleural findings, however she's had normal echo since onset of this pain. -plan to repeat chest X-ray to evaluate for structural changes -labs ordered to assist in determining diagnosis -emergency precautions reviewed Assessment & Plan (06/15/2024 2:33 PM EDT): [...] maxillary sinusitis 12/09/2023 Colon cancer screening 12/09/2023 Papanicolaou smear of vagina with high grade squamous intraepithelial lesion (HGSIL) 09/29/2023 Sore throat 08/25/2023 Age-related osteoporosis wit hout current pathological fracture 08/25/2023 Neck pain 08/25/2023 Assessment & Plan (08/25/2023 4:47 PM EDT): Apply heat on affected area Ibuprofen 600mg Q 8hrs with full stomach Flexeril 5mg at bed time ( she is aware of side effect somnolence) Partial edentulism 06/03/2023 Dyspnea on exertion 05/23/2023 Fractured dental catholic with loss of materi al 04/02/2023 Encounter [...] pain 08/13/2022 Moderate major depression, single episode (CMS/H CC) 08/13/2022 Assessment & Plan (12/21/2024 3:50 PM EDT): Patient has been stable but she would like to be engaged again with her therapist Nosebleed 08/13/2022 Postmenopausal bleeding 08/13/2022 Sciatica 08/13/2022 Chronic left shoulder pain 08/13/2022 Face lesion 08/13/2022 Chronic pain of both shoulders 04/24/2022 Dementia with behavioral disturbance (CMS/HCC) 0 04/24/2022 Assessment & Plan (12/21/2024 3:50 PM EDT): Stable continue with same interventions Early satiety 04/24/2022 Essential hypertension 04/24/2022 Assessment & Plan (12/21/2024 3:49 PM EDT): Advised: - Aerobic exercise to reduce BP. Initial [...] consulting health care provider Assessment & Plan (06/15/2024 2:31 PM EDT): [...] diabetes mellitus without complication Assessment & Plan (12/21/2024 3:50 PM EDT): Diabetes is: almost at goal - Lab Results Component Value Date HGBA1C 6.6 (A) 12/21/2024 HGBA1C 6.4 (H) 03/03/2024 HGBA1C 6.8 (A) 12/09/2023 - Lab Results Component Value Date MICROALBUR <5.0 03/03/2024 CREATININE 0.86 08/17/2024 -Changes: None - Diabetic eye exam: Up-to-date - Diabetic foot exam: Done today - Continue lifestyle modifications - Continue current medications - Follow up: 3 months Assessment & Plan (06/15/2024 2:32 PM EDT): [...] - Continue current medications Lumbar radiculopathy 04/24/2022 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 Date Type Department Care Team Description 01/03/2025 1:40 PM EDT Office Visit [facility] [address] [place] [phone] Daija Garrison MD Weakness of right upper extremity (Primary Dx) 01/03/2025 Telephone [facility] [address] [place] [phone] Sofia Montero, RN Nurse Triage 01/03/2025 Travel 01/03/2025 Telephone [facility] [address] [place] [phone] Diamond Ponce MD dec recall 12/21/2024 2:30 PM EDT Office Visit [address] [phone] Diamond Ponce MD Essential hypertension (Primary Dx); Type 2 diabetes mellitus without complication, without long-term current use of insulin (CMS/HCC); Dementia with behavioral disturbance (CMS/HCC); Moderate major depression, single episode (CMS/HCC); Dietary counseling; Exercise counseling; Skin abrasion; Seborrheic dermatitis; Acute otitis media, unspecified otitis media type 12/21/2024 Travel 12/20/2024 Telephone [facility] [address] [place] [phone] Diamond Ponce MD chart prep 12/13/2024 Patient Outreach [facility] [address] [place] [phone] Diamond Ponce MD Pre-visit Planning (SDOH screening completed on 06/07/2024) 12/07/2024 2:30 PM EDT Office Visit [facility] [address] [place] [phone] Xochilt Davidson, OD Diabetes type 2, no ocular involvement (CMS/HCC) (Primary Dx); Familial drusen of both eyes; Combined forms of age-related cataract of both eyes; Dry eyes; Amblyopia of left eye; Presbyopia of both eyes 12/07/2024 Travel 11/11/[address] [phone] Diamond Ponce MD fyi 11/01/2024 Refill [facility] [address] [place] [phone] Clyde Chase MD 10/29/2024 Refill [facility] [address] [place] [phone] Diamond Ponce MD Essential hypertension 10/19/[address] [phone] Diamond Ponce MD Appointment Request from Last 3 Months Immunizations Immunization Administration Dates Next Due Influenza High-dose Quadriva [...] Mass Index 30.18 01/03/2025 1:33 PM EDT Plan of Treatment Upcoming Encounters Date Type Department Care Team (Late st Contact Info) Description 03/11/2025 2:30 PM EST Office Visit [facility] [address] [place] [address] Diamond Ponce MD [address] [place] [address] Health Maintenance Due Date Last Done Comments CT Colonography 1955 FIT 1955 Sigmoidoscopy 1955 Alcohol/Substance Use Screening 1966 Colonoscopy 06/17/2023 06/16/2013 Dental Oral Exam 07/05/2023 01/02/2023, 11/28/2020 Dental Prophylaxis 07/05/2023 01/02/2023, 12/12/2020 Dental X-Ray: Full Mouth 11/30/2023 11/28/2020 Dental X-Ray: Bitewings 01/04/2024 01/03/20 23, 08/24/2021, 11/28/2020, Additional history exists DTaP/Tdap/Td Vaccines (2 - Td or Tdap) 02/08/2024 02/07/2014 Depression Screening 05/22/2024 05/23/2023, 05/23/19 HPV/Cotest 11/01/2024 12/02/2018 Pap Smear 11/01/2024 Influenza Vaccine (#1) 2024 , 01/03/2022, 02/23/2021, Additional history exists Diabetes: Urine Protein Screening 03/03/2025 03/03/2024, 01/14/2023 Lipid Panel 03/03/2025 03/03/2024, 12/23, 09/11/2021, Additional history exists SDOH Screening 06/07/2025 06/07/2024 Diabetes: Hemoglobin A1C 06/20/2025 025, 03/03/2024, 12/09/2023, Additional history exists FOBT 06/28/2025 06/28/2024 Mammogram 07/19/2025 07/19/2024, 06/23, 07/09/2022, Additional history exists Diabetes: Foot Exam 12/21/2025 12/21/2024, 12/21/2024, 03/13/2023, Additional history exists Tobacco Screening 12/21/2025 12/21/2024 Eye Exam 12/07/2026 12/07/2024, 11/22, 12/07/2024, Additional history exists Colorectal Cancer Screening 06/29/2027 [...] patient's age to complete this topic Meningococcal B Vaccine Aged Out No l onger eligible based on patient's age to complete [...] Name Priority Date/Time Associated Diagnosis Comments POCT GLYCATED HEMOGLOBIN, TOTAL Routine 12/21/2024 2:43 PM EDT Type 2 diabetes mellitus without complication, without long-term current use of insulin (CMS/HCC) POCT GLUCOSE Routine 12/21/2024 2:43 PM EDT Type 2 diabetes mellitus without complication, without long-term current use of insulin (CMS/HCC) OCT, RETINA - OU - BOTH EYES Routine 12/07/2024 2:30 PM EDT Familial drusen of both eyes BI MAMMOGRAM SCREENING TOMOSYNTHESIS BILATERAL Routine 07/19/2024 1:30 PM EDT LAB COLOGUARD COLON CANCER SCREEN Routine 06/28/2024 10:00 PM EDT Screening for colon cancer HEPATITIS C AB W/REFL TO HCV RNA, QN, PCR Routine 03/03/2024 7:57 AM EST Type 2 diabetes mellitus without complication, without long-term current use of insulin (CMS/HCC) ALBUMIN, RANDOM URINE W/CREATININE Routine 03/03/2024 7:57 AM EST Type 2 diabetes mellitus without complication, without long-term current use of insulin ([facility]) LIPID PANEL, STANDARD Routine 03/03/2024 7:57 AM EST Type 2 diabetes mellitus without complication, without long-term current use of insulin (CMS/[facility]) Full PROPHYLAXIS - ADULT Routine 01/02/2023 [...] Relevant to Health Maintenance Results * (ABNORMAL) POCT Hgb A1c (12/21/2024 2:43 PM EDT) Hemoglobin A1C 6.6(A) 4.0 - 5.7 % QC Media Lot # [id number] Lot# Expiration Date 42,[id number] Blood 12/21/2024 2:43 PM EDT us Diamond Lepe MD POINT OF CARE TEST EN TER/EDIT ORDERABLES Final Result * (ABNORMAL) POCT Glucose (12/21/2024 2:43 PM EDT) Glucose Blood, POC 266(A) 60 - 200 mg/dL QC Media Lot # [id number] Lot# Expiration Date 22,726 Blood Capillary blood specimen / Unknown 12/21/2024 2:43 PM EDT us Diamond Lepe MD POINT OF CARE TEST EN TER/EDIT ORDERABLES Final Result * OCT, Retina - OU - Both Eyes (12/07/2024 2:30 PM EDT) Xochilt Bentley, OD - 12/13/2024 11:27 AM EDT Images from the original result were not included. 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 Her vision is not affected at this time. No treatment is necessary. Will monitor at her next eye exam. us Xochilt Davidson OD OPHTH TOMOGRAPHY Final Result * BI Mammogram Screening Tomosynthesis Bilateral (07/19/2024 1:30 PM EDT) Anatomical Region Laterality Modality Breast Bilateral Mammography 07/19/2024 1:30 PM EDT Narrative 07/25/2024 2:35 PM EDT [facility] [address] [place] [address] Mammography Report Signed Patient: Eveline Novoa MR#: [id number] : 1955 Acct:[id number] Age/Sex: 69 / F ADM Date: 07/19/24 Loc: HO.MAMMO Attending Dr: Diamond Lepe MD Ordering Physician: Diamond Ponce MD Results: 2Benign Findings Date of Service: 07/19/24 Follow Up: 1 Year From [facility] Mammogram Procedure(s): MM tomosynthesis screening BI Accession Number(s): [id number] cc: Diamond Ponce MD EXAMINATION: MM SCREENING [...] Chao DO Signed By: <Electronically signed by aFnta Chao DO in OV> 07/25/24 1432 DD/ 1330 TD/TT: 07/19/24 1355 Needle Leader: Procedure Note Donotuseinterpreter, Image - 07/25/2024 [facility] [address] [place] [address] Mammography Report Signed Patient: Eveline Novoa MR#: [id number] : 1955cct:[id number] Age/Sex: 69 / FADM Date: 07/19/24 Loc: HO.MAMMO Attending Dr: Diamond Lepe MD Ordering Physician: Diamond Ponce MDResults: 2Benign Findings Date of Service: 07/19/24Follow Up: 1 Year From Orig ina Mammogram Procedure(s): MM tomosynthesis screening BI Accession Number(s): [id number] cc: Diamond Ponce MD EXAMINATION: MM SCREENING [...] Fanta Chao DO 07/25/2024 02:32 PM EDT Dictated By: Fanta Chao DO Signed By: <Electronically signed by Fanta Chao DO in OV> 07/25/24 1432 DD/ 1330 TD/TT: 07/19/24 1355 Needle Leader: Diamond Lepe MD IMG BI PROCEDURES [place] ta Result - Final * Cologuard?? colon cancer screening (06/28/2024 10:00 PM EDT) Cologuard Result Negative Negative 07/07/19 12:46 PM EDT [employer] (CLIA #:[id number]) Comment: NEGATIVE TEST RESULT. A negative Cologuard result indicates a low likelihood that a colorectal cancer (CRC) or advanced adenoma (adenomatous polyps with more advanced pre-malignant features) is present. The chance that a person with a negative Cologuard test has a colorectal cancer is less than 1 in 1500 (negative predictive value >99.9%) or has an advanced adenoma is less than 5.3% (negative predictive value 94.7%). These data are based on a prospective cross-sectional study of 10,000 individuals at average risk for colorectal cancer who were screened with both Cologuard and colonoscopy. (Amanda Pedro, N Engl J Med 2014;370(14):3373-9348) The normal value (reference range) for this assay is negative. COLOGUARD RE-SCREENING RECOMMENDATION: Periodic colorectal cancer screening is an important part of preventive healthcare for asymptomatic individuals at average risk for colorectal cancer. Following a negative Cologuard result, the English Cancer Society and U.S. Multi-Society Task Force screening guidelines recommend a Cologuard re-screening interval of 3 years. References: English Cancer Society Guideline for Colorectal Cancer Screening: https://www.cancer.org/cancer/rtqdi-yolsyi-rjyskr/xurksipfm-teeeiiidn-uepabxa/ac s-rec ommendations.html.; Robert DK, Tanisha DONALD, Ji ValenciaK, Colorectal Cancer Screening: Recommendations for Physicians and Patients from the U.S. Multi-Society Task Force on Colorectal Cancer Screening , Am J Gastroenterology 2017; 112:2370-7877. TEST DESCRIPTION: Composite algorithmic analysis of stool DNA-biomarkers with hemoglobin immunoassay. Quantitative values of individual biomarkers are not [...] (Amanda Sharif al, N Engl J Med 2014;370(14):3764-3193.) Cologuard may produce a false negative or false positive result (no colorectal cancer or precancerous polyp present at colonoscopy follow up). A negative Cologuard test result does not guarantee the absence of CRC or advanced adenoma (pre-cancer). The current Cologuard screening interval is every 3 years. (English Cancer Society and U.S. Multi-Society Task Force). Cologuard performance data in a 10,000 patient pivotal study using colonoscopy as the reference method can be accessed at the following location: www.[employer].com/results. Additional description of the Cologuard test process, warnings and precautions can be found at www.[employer]. Stool specimen (specimen) 06/28/2024 10:00 PM EDT 06/30/2024 1:20 PM EDT Diamond Lepe MD LAB MOLECULAR DIAGNOS TICS ORDERABLES Final Result Performing Organization Address City/[facility]/ZIP Co de Phone Number [employer] (CLIA #:[id number]) [place] [address], [place] [phone] * Albumin, Random Urine W/Creatinine (03/03/2024 7:57 AM EST) Creatinine, Urine 57.95 mg/dL [facility] Microalbumin Urine <5.0 mg/L [facility] Microalbum Creatinine Ratio Ur TNP <30 ug/mg cr [facility] Comment:Unable to calculate albumin/creatinine ratio due to lowmicroalbumin or creatinine result. Urine (Urine, Random) 03/03/2024 7:57 AM EST 03/03/2024 11:16 AM EST Diamond Lepe MD LAB URINE ORDERABLES Final Result Performing Organization Address [facility] Co de Phone Number [facility] [address] [place] [phone] * Hepatitis C Antibody with Reflex to HCV, RNA, Quantitative, Real-Time PCR (03/03/2024 7:57 AM EST) Hepatitis C Antibody Nonreactive Nonreactive [facility] Comment:Antibodies to HCV no t detected; does not exclude early acuteHCV infection. Blood Venous blood specimen / Unknown 03/03/2024 7:57 AM EST 03/03/2024 11:18 AM EST Diamond Lepe MD LAB BLOOD ORDERABLES Final Result Performing Organization Address City/[facility]/ZIP Co de Phone Number [facility] [address] [place] [address] [phone] * (ABNORMAL) Lipid Panel, Standard (03/03/2024 7:57 AM EST) Triglycerides 73 <150 mg/dL [facility] Comment:Desirable Triglyceri de: less than 150 mg/dLBorderline High Triglyceride 150-199 mg/dLHigh Triglyceride: 200-499 mg/dLVery High Triglyceride: greater than or equal to 5OO mg/dL Cholesterol 242(H) <200 mg/dL [facility] Comment:Desirable Cholestero l: less than 200 mg/dLBorderline High Cholesterol: 200-239 mg/dLHigh Cholesterol: greater than 239 mg/dL LDL Cholesterol Calculated 167(H) <100 mg/dL [facility] Comment:Desirable LDL: less than 100 mg/dLNear Optimal/Above Optimal LDL: 110- 129 mg/dLBorderline High LDL: 130-159 mg/dLHigh LDL: 160-189 mg/dLVery High LDL: greater than or equal to 190 mg/dL HDL Cholesterol 61 >40 mg/dL [facility] Comment:Desirable HDL: great er than 40 mg/dL Note: This HDL assay may give artificially low results in patients with liver disease. Blood Venous blood specimen / Unknown 03/03/2024 7:57 AM EST 03/03/2024 11:18 AM EST us Diamond Lepe MD LAB BLOOD ORDERABLES Final Result Performing Organization Address City/[facility]/ZIP Co de Phone Number [facility] [address] [place] [phone] * (ABNORMAL) HPV mRNA E6/E7 (12/02/2018 3:30 PM EDT) HPV mRNA E6/E7 DETECTED (AA) NOT DETECTED [facility] Comment: This test was performed using the APTIMA(R) HPV Assay ([employer] This assay detects E6/E7 viral messenger RNA (mRNA) from 14 high-risk HPV types (16,18,31,33,35,39,45,51, 52,56,58,59,66,68). For additional information please refer to: http://education.[employer]/faq/BZD834p3 (This link is being provided for informational/ educational purposes only.) The analytical performance characteristics of this assay have been determined by [place], [place]. The modifications have not been cleared or approved by the FDA. This assay has been validated pursuant to the CLIA regulations and is used for clinical purposes. Test Performed by [employer], [facility] [place], [address] [place] [address] Justyn Nettles M.D., Ph.D., Director of Laboratories , CLIA [id number] Please note: Effective 12/04/2015, HPV testing will be performed using [employer]'s APTIMA test which targets mRNA. Detecting mRNA instead of DNA, as in older methods, offers significant improvements in specificity. 12/02/2018 3:30 PM EDT Leonarda Mancera CNM HISTORICAL/NON ORDERABLE LABS Final Result [facility] [address] * Hm Colonoscopy (06/16/2013) Historical Provider MD HEALTH MAINTENANCE Final Result from Last 3 Months or Most Recently Relevant to Health Maintenance Insurance [facility] HALF-WAY OPTIONS (HMO D-SNP) [facility] STANDARD [facility] Care Teams Tire Worker Relationship Specialty Start Date End Date Diamond Ponce MD [address] [place] [phone] PCP - General Family Medicine 07/01/19
--- OUTSIDE RECORDS SUMMARY | 2025-01-03 15:41 | XMS_ITS | Encounter Summary ---
Author Organization [employer] Address [address] [facility] 7t [place] [address] Care Team Providers Care Beverage Server Name Role Phone Diamond Ponce MD Primary Care Provide r Reason for Visit * Reason Onset Date Comments dec recall 01/03/2025 Encounter Details Date Type Department Care Team ([facility] Contact Info) Description 01/03/2025 Telephone [facility] MEDICINE [address] [place] [address] Diamond Ponce MD [address] [place] [address] feb recall Social History Tobacco Use Types Packs/Day Years [...] encounter Miscellaneous Notes * Telephone Encounter - Rosa Carbone MA - 01/03/2025 11:45 AM EDT Telephone call to patient to schedule the following recall: Visit type: Office visit Appointment notes: Chronic conditions Patient agree to appointment on 03/11/25 at 2:30 PM with Edith. documented in this encounter Plan of Treatment Upcoming Encounters Date Type Department Care Team (Late st Contact Info) Description 03/11/2025 2:30 PM EST Office Visit [facility] MED[facility] [address] [place] [address] Diamond Ponce MD [address] [place] [address] documented as of this encounter Visit Diagnoses Not on filedocumented in this encounter Additional Health Concerns Assessment Noted Time PHQ-9 Depression Total Score: 0 05/23/19 24 1:38 PM EST documented as of this encounter Care Teams Beverage Server Relationship Specialty Start Date End Date Diamond Ponce MD [address] [place] [address] PCP - General Family Medicine 07/01/19 documented as of this encounter
--- OUTSIDE RECORDS SUMMARY | 2025-01-03 15:41 | XMS_ITS | Encounter Summary ---
Author Organization [employer] [facility] Address [address] [place] [address] 7t [place] [address] Care Team Providers Care Raiser Helper Name Role Phone Diamond Ponce MD Primary Care Provide r Encounter Details Date Type Department Care Team (Late Contact Info) Description 12/11/2022 Orders Only [facility] MEDICINE [address] [place] [address] [phone] Provider, MD Ya Social History Tobacco Use [...] Description 03/11/2025 2:30 PM EST Office Visit [facility] MEDICINE [address] [place] [address] Diamond Ponce MD [address] [place] [address] [phone] documented as of this encounter Procedures Procedure [...] documented as of this encounter Care Teams Raiser Helper Relationship Specialty Start Date End Date Diamond Ponce MD [address] [place] [address] PCP - General Family Medicine 07/01/19 documented as of this encounter
--- OUTSIDE RECORDS SUMMARY | 2025-01-03 15:41 | XMS_ITS | Encounter Summary ---
Author Organization [employer] Address [address] [facility] 7t [place] [address] Care Team Providers Care Quality Audit Representative Name Role Phone Diamond Ponce MD Primary Care Provide r Reason for Visit * Reason Onset Date Comments Med Refill 04/23/2022 Encounter Details Date Type Department Care Team ([facility] st Contact Info) Description 04/23/2022 Telephone [facility] MEDICINE [address] [place] [address] Diamond Ponce MD [address] [place] [address] Med Refill Social History Tobacco Use Types [...] Description 03/11/2025 2:30 PM EST Office Visit [facility] MED[facility]INE [address] [place], [place] [phone] Diamond Ponce MD [address] [place], [place] [phone] documented as of this encounter Visit Diagnoses Not on filedocumented in this encounter Care Teams Quality Audit Representative Relationship Specialty Start Date End Date Diamond Ponce MD [address] [place] [phone] PCP - General Family Medicine 07/01/19 documented as of this encounter
--- OUTSIDE RECORDS SUMMARY | 2025-01-03 15:41 | XMS_ITS | Encounter Summary ---
Author Organization [employer] Address [address] [facility] 7t [place] [address] Care Team Providers Care Irrigation Worker Name Role Phone Diamond Ponce MD Primary Care Provide r Reason for Visit * Reason Onset Date Comments fyi 11/11/2024 Encounter Details Date Type Department Care Team ([facility] Contact Info) Description 11/11/2024 Telephone [facility] MEDICINE [address] [place] [address] Diamond Ponce MD [address] [place] [address] fyi Social History Tobacco Use Types Packs/Day Years [...] encounter Miscellaneous Notes * Telephone Encounter - Wing Erin RN - 11/11/2024 3:55 PM EDT Tc to [facility] for clarification on the message above. Unable to reach [facility], left message for them to call back. * Telephone Encounter - Ricardo Woods - 11/11/2024 2:48 PM EDT Tc from [facility] stating pt is falling into non inherit due to pt not being consistent picking up their med boxes. -Contact [facility] at [phone] documented in this encounter Plan of Treatment Upcoming Encounters Date Type Department Care Team (Late st Contact Info) Description 03/11/2025 2:30 PM EST Office Visit [facility] MEDICINE [address] [place] [phone] Diamond Ponce MD [address] [place] [address] documented as of this encounter Visit Diagnoses Not on filedocumented in this encounter Additional Health Concerns Assessment Noted Time PHQ-9 Depression Total Score: 0 05/23/19 24 1:38 PM EST documented as of this encounter Care Teams Irrigation Worker Relationship Specialty Start Date End Date Diamond Ponce MD [address] [place] [address] PCP - General Family Medicine 07/01/19 documented as of this encounter
--- OUTSIDE RECORDS SUMMARY | 2025-01-03 15:41 | XMS_ITS | Clinical Summary ---
Author Organization [facility] Address [address] [place] [address] Phone Care Team Providers Care Continuous Mining Operator Name Role Phone Diamond Ponce MD Primary Care Provider Allergies No known active allergies Medications diclofenac sodium (VOLTAREN) 1 % Gel Apply 2 g topically 4 (four) times a day as needed (PAIN). 2 Active polyethylene glycol (MIRALAX) 17 gram packet Take 17 g by mouth as needed (CONSTIPATION) . 2 Active amLODIPine (NORVASC) 2.5 MG tablet Take 2.5 mg by mouth daily. 2 Active baclofen (LIORESAL) 20 MG tablet Take 20 mg by mouth 3 (three) times a day. 2 Active atorvastatin (LIPITOR) 40 MG tablet Take 40 mg by mouth nightly at bedtime. 2 Active ibuprofen (ADVIL,MOTRIN) 800 MG tablet Take 800 mg by mouth 3 (three) times a day as needed for pain (specific location in comments). 2 Active Social History Tobacco Use Types Packs/Day Years Used Date Smoking Tobacco: Never Assessed Education Answer Date Recorded Are you interested in more education? Not on frederick e 07/20/2022 Are you concerned about learning? Not on file 07/20/2022 No 07/20/2022 No 07/20/2022 Digital Access Answer Date Recorded No 08/13/2022 No 08/13/2022 No 08/13/2022 Reliable internet access at home? Not on file 08/13/2022 Device with a working camera? Not on file Comments Unknown Sex and Gender Information Value Date Recorded Sex Assigned at Not on file Legal Sex Female 9:57 PM EDT Gender Identity Not on file Sexual Orientation Not on file Last Filed Vital Signs Vital Sign Reading Time Taken Comments Blood Pressure 110/60 11/28/2021 11:30 AM EDT Pulse 88 11/28/2021 11:30 AM EDT Temperature 36.7 C (98 F) 11/28/2021 11:30 AM EDT Respiratory Rate 16 11/28/2021 11:30 AM EDT Oxygen Saturation 98% 11/28/2021 11:30 AM EDT Inhaled Oxygen Concentration - - Weight - - Height - - Body Mass Index - - Plan of Treatment Health Maintenance Due Date Last Done Comments Adult Td,Tdap Booster 1954 LIPID PANEL 1954 DEPRESSION SCREENING 1966 SMOKING Hx and SMOKELESS TOB ACCO SCREENING 1967 HEPATITIS C SCREENING 01/26/1972 MAMMOGRAM 1994 COLOGUARD 1999 COLONOSCOPY 1999 COLORECTAL CANCER SCREENING 1999 FIT TEST 1999 FOBT 1999 SIGMOIDOSCOPY 1999 VIRTUAL COLONOSCOPY 1999 PNEUMOCOCCAL VACCINES (50+ y ears) (1 of 1 - PCV) 01/26/2004 ZOSTER VACCINES (1 of 2) 01/26/2004 OSTEOPOROSIS SCREENING INITI AL (ONE-TIME) 2019 INFLUENZA VACCINE (#1) 2024 COVID-19 VACCINE ( - 2024-2 6 season) 2024 RSV VACCINE (1 - 1-dose 75+ series) 2029 HEPATITIS A VACCINES Aged Out No long er eligible based on patient's age to complete this topic HIB VACCINES Aged Out No longer eligi ble based on patient's age to complete this topic MENINGOCOCCAL VACCINES (ACWY) Aged Out No longer eligible based on patient's age to complete this topic MENINGOCOCCAL VACCINES (B) Aged Out N o longer eligible based on patient's age to complete this topic Medical Devices Not on file Insurance MEDIC[facility] PART A & [facility] [place] MED[place] HEALTH MEDICARE PART A & [place] MED[place] & B [facility] MEDICARE PART A & [place] [address] [place] [address] MEDICARE PART A & B Member Subscriber Plan / Payer (Ef fective 2021-) Name:Eveline Bryan Member ID:[id number] Relation to Subscriber:Self Name:Eveline Bryan Subscriber ID:[id number] Payer ID:[id number] Group ID:Not on file Type:Medicare Address: [employer] [address] [facility] [address] [place] [address] MEDICARE PART A & B Member Subscriber Plan / Payer (Ef fective 2021-) Name:Eveline Bryan Member ID:[id number] Relation to Subscriber:Self Name:Nikolai jacques Nikhil Eveline Subscriber ID:[id number] Payer ID:[id number] Group ID:Not on file Type:Medicare Address: Remote Assistant [address] [place] [phone] [place] PART A & B Member Subscriber Plan / Payer (Ef fective 2021-Present) Name:Eveline Bryan Member ID:[id number] Relation to Subscriber:Self Name:Nikolai Herrera Eveline Subscriber ID:[id number] Payer ID:[id number] Group ID:Not on file Type:Medicare Address: [employer] [address] [place] Care Teams Continuous Mining Operator Relationship Specialty Start Date End Date Diamond Ponce MD [address] [place] [address] PCP - General Internal Medicine 11/05/21 Additional Source Comments The information contained in this document represents components of the legal health record. It is not the complete legal health record.[facility]
--- OUTSIDE RECORDS SUMMARY | 2025-01-03 15:41 | XMS_ITS | Encounter Summary ---
Author Organization [employer] Address [address] [place] [address] 7 [place] [address] Care Team Providers Care Maintenance Electrician Name Role Phone Diamond Ponce MD Primary Care Provide r Encounter Details Date Type Department Care Team (Late Contact Info) Description 03/29/2022 [facility] Health Information Management [address] [place] [address] Diamond Ponce MD [address] [place] [address] Social History Tobacco Use Types Packs/Day Years [...] Encounters Date Type Department Care Team (Late Contact Info) Description 03/11/2025 2:30 PM EST Office Visit [facility] [address] [place], [place] [phone] Diamond Ponce MD [address] [place], [place] [phone] documented as of this encounter Visit Diagnoses Not on filedocumented in this encounter Care Teams Maintenance Electrician Relationship Specialty Start Date End Date Diamond Ponce MD [address] [place] [address] [phone] PCP - General Family Medicine 07/01/19 documented as of this encounter
--- OUTSIDE RECORDS SUMMARY | 2025-01-03 15:41 | XMS_ITS | Encounter Summary ---
Author Organization [employer] Address [address] [facility] 7t [place] [address] Care Team Providers Care Orthopaedic Physician Assistant Name Role Phone Diamond Ponce MD Primary Care Provide r Reason for Visit * Reason Onset Date Comments triage 04/23/2022 Encounter Details Date Type Department Care Team ([facility] st Contact Info) Description 04/23/2022 Telephone [facility] MEDICINE [address] [place] [address] Diamond Ponce MD [address] [place] [address] triage Social History Tobacco Use Types Packs/Day [...] Questionnaire -2 Score 0 04/24/2022 2:26 PM EST Catalina Truong MA * Over the past 2 weeks, [...] caller The caller accepted this outcome speaks croatian documented in this encounter Plan of Treatment Upcoming Encounters Date Type Department Care Team (Late st Contact Info) Description 03/11/2025 2:30 PM EST Office Visit [facility] MEDICINE [address] [place] [address] Diamond Ponce MD [address] [place] [address] documented as of this encounter Visit Diagnoses Not on filedocumented in this encounter Care Teams Orthopaedic Physician Assistant Relationship Specialty Start Date End Date Diamond Ponce MD [address] [place] [address] [phone] PCP - General Family Medicine 07/01/19 documented as of this encounter
--- OUTSIDE RECORDS SUMMARY | 2025-01-03 15:41 | XMS_ITS | Encounter Summary ---
Author Organization [employer] Address [address] [facility] 7t [place] [address] Care Team Providers Care Financial Services Director Name Role Phone Diamond Ponce MD Primary Care Provide r Reason for Visit * Reason Onset Date Comments Prior Authorization 03/04/2023 Encounter Details Date Type Department Care Team ([facility] Contact Info) Description 03/04/2023 Telephone [facility] ADULT DENTAL [address] [place] [address] Aron No DDS [address] [place] [address] Prior Authorization Social History Tobacco Use Types [...] Description 03/11/2025 2:30 PM EST Office Visit [facility] MEDICINE [address] [place], [place] [phone] Diamond Ponce MD [address] [place] [address] documented as of this encounter Visit Diagnoses Not on filedocumented in this encounter Additional Health Concerns Assessment Noted Time PHQ-9 Depression Total Score: 0 04/24/19 23 2:26 PM EST documented as of this encounter Care Teams Financial Services Director Relationship Specialty Start Date End Date Diamond Ponce MD [address] [place], [place] [phone] PCP - General Family Medicine 07/01/19 documented as of this encounter
--- OUTSIDE RECORDS SUMMARY | 2025-01-03 15:41 | XMS_ITS | Encounter Summary ---
Author Organization [employer] Address [address] [facility] [address] 7t [place] [address] Care Team Providers Care Plastic Press Molder Name Role Phone Diamond Ponce MD Primary Care Provide r Encounter Details Date Type Department Care Team (Latest Contact Info) Description 01/03/2025 Travel Social History Tobacco Use Types Packs/Day [...] 2:30 PM EST Office Visit [facility] MEDICINE [address] [place] [phone] Diamond Ponce MD [address] [place] [address] documented as of this encounter Visit Diagnoses Not on filedocumented in this encounter Additional Health Concerns Assessment Noted Time PHQ-9 Depression Total Score: 0 05/23/19 24 1:38 PM EST documented as of this encounter Care Teams Plastic Press Molder Relationship Specialty Start Date End Date Diamond Ponce MD [address] [place] [phone] PCP - General Family Medicine 07/01/19 documented as of this encounter
--- OUTSIDE RECORDS SUMMARY | 2025-01-03 15:41 | XMS_ITS | Encounter Summary ---
Author Organization [facility] Address [address] [facility] [address] [place] [address] Encounters * CPT with [facility] at [facility] on 2024-11-17 { reasonForRequest : arm and leg numbness , patientReports : &qu ot;, denies :[ Worst Headache of life , New onset of vision loss ,"Sudden onset -unilateral weakness/gait disturbance , Fall with head strike and altered LOC , New onset of Slurred speech or difficulty finding words , Sudden Mental status changes , Head pain with fever chills and neck pain , Seizure activity", Head pain not relieved by medication greater than 8 hours , Head pain greater than 8 hours -unrelated to falls or injury , Head pain with nausea vomiting , Dizziness with positional change , Sensitive to light ], chiefComplaints : Weakness , pmh : Osteoporosis, Diabetes Mellitus Type 2 , allergies": Morphine, Tramadol , otherAllergies :null, painAssessment : & quot;, visitOutcome : , additionalComments : 69 y.o female \n\nPt calling with conference interpreter. \nPatient calling for numbness on her hands, legs, and arms. She described the feeling as numbness and cramping. The feeling is present in the right arm and both legs. \nSfrederick has never had this before. She denies any changes in her speech, swallow, face. \nPt was explained that they may recommend going to the ER for imaging to rule out CVA , pt wanted the visit first todetermine if it was a result of hyperglycemia \nShe denies any vision changes or headaches. \nShe denies weakness but stated that it is numb. \nSfrederick is not on a diuretic. She does have diabetes, but has not taken her blood sugar , which is recommended, because her machine is broken. \nSfrederick does not have any increased thirst or urination. \n\n\nI provided information on the mobile health provider response time and advised the patient and/or caregiver to monitor reported signs and symptoms. I discussed the warning signs of when to seek emergency care. } Patient alert and oriented, seated on chair. Patient complains of lightheadedness. Patient reports she had numbness, tingling earlier while out. Patient reports she was hyperventilating at the time. Patient reports that happens to her from time to time. Numbness, tingling weakness have subsided sinc e she returned to her home. Patient reports lightheadedness and some vertigo began at the same timethis visit began. Patient denies nausea, vomiting, diarrhea, weakness, numbness, falls, trauma, or any other pain or complaints. Patient, pink, warm, dry, stroke scale negative, positive full sentences, negative increased work of breathing, abdomen, soft, nontender, extremities unremarkable no edema noted. Patient advised to follow up with PCP. Red flags patient education discussed. Patient demonstrates understanding of care and plan. ORAL_MEDICATION, WOUND_CARE Written by Medical [facility] on 2024-11-17
--- OUTSIDE RECORDS SUMMARY | 2025-01-03 15:41 | XMS_ITS | Encounter Summary ---
Author Organization [employer] Address [address] [facility] 7t [place] [address] Care Team Providers Care Staff Registered Nurse Name Role Phone Diamond Ponce MD Primary Care Provide r Encounter Details Date Type Department Care Team (Latest Contact Info) Description 12/12/2020 Abstract [facility] CONVERSIONS Dental, Provider, DDS Social History [...] Description 03/11/2025 2:30 PM EST Office Visit [facility] MEDICINE [address] [place] [address] Diamond Ponce MD [address] [place] [address] documented as of this encounter Visit Diagnoses Not on filedocumented in this encounter Care Teams Staff Registered Nurse Relationship Specialty Start Date End Date Diamond Ponce MD [address] [place] [address] PCP - General Family Medicine 07/01/19 documented as of this encounter
--- OUTSIDE RECORDS SUMMARY | 2025-01-03 15:41 | XMS_ITS | Patient Health Record ---
Author Organization [facility] Address [address] [place] [address] Care Team Providers Care Improvement Advisor Name Role Phone Jacey VILLAGOMEZ, Tesha Primary Care Provider U Marc Bob Unavailable [phone] Reason For Referral No Information Medications Medication SIG (Take, Route, Frequency, Duration) Notes Start Date End Date Status Colyte with Flavor Packs 240 GM as directed Orally as directed; Duration: 1 dose 04/13/2013 Activ e Bentyl 10 MG 1-2 capsules Orally QID prn abdominal pain/gas/cramps; Duration: 30 day(s) 04/13/2013 Active Problems Problem Type SNOMED Code ICD Code Onset Dates Problem Status W/U Status Risk Notes Problem Irritable bowel syndrome (32363436) Irritable bowel syndrome (564.1) Active confirmed Problem Generalized abdominal pain (597016997) Abdominal pain, generalized (789.07) Active confirmed Problem Screening for colon cancer (775680011) Screening for colon cancer (V76.51) Active confirmed Plan Of Treatment Future Test Test Name Order Date COLONOSCOPY 04/13/2013 Insurance Providers Payer Name Payer Address Payer Phone Subscriber Number Group Number Insured Name Patient Relationship to Insured Coverage Start Date Coverage End Date [facility] [address] [address] [place], [place] [phone] [id number] [employer] Self - patient is the insured Medical (General) History Medical History History ICD Code Denies NM,DM,CVA,Lung disease,renal dise ase Surgical History Surgery Date(Month/Year) hysterectomy varicose vein on left leg
--- OUTSIDE RECORDS SUMMARY | 2025-01-03 15:41 | XMS_ITS | Encounter Summary ---
Author Organization [employer] Address [address] [facility] 7t [place] [address] Care Team Providers Care Supersonic Engineer Name Role Phone Diamond Ponce MD Primary Care Provide r Reason for Visit * Reason Onset Date Comments Nurse Triage 01/03/2025 Encounter Details Date Type Department Care Team ([facility] Contact Info) Description 01/03/2025 Telephone [facility] MEDICINE [address] [place] [address] Sofia Montero RN [address] [place] [address] Nurse Triage Social History Tobacco Use Types Packs/Day Years [...] encounter Miscellaneous Notes * Telephone Encounter - Sofia Montero RN - 01/03/2025 1:12 PM EDT Assessment: Patient [facility] c/o right-sided numbness x2 days. Yesterday it started in finger tips and spread to her right hand. At that time she took aspirin and states symptoms resolved. However, today she woke up with right sided numbness and weakness in upper right side of body. When escorted from waiting room to triage, slight right-sided limp noted. Pt reports chronic knee pain. Unclear if related to that or current symptoms. Pt also reports persistent headache. No facial drooping noted. Pt asked to push on RNs hands. Significant deficit in right side noted. made aware who advised ED now. Vitals taken and WNL. obsessive pt as well and agreed with RN recommendation of ED as possible TIA noted. VS as follows (if applicable): Temp 98.2 F orally HR 68 regular rate and rhythm Resp 16 BP 123/69 left Arm; Device: Automatic Cuff Size: regular O2 sat 98 % on room air Pain level: 0, Location: N/A Hgt 4'11 Wgt 149.4lbs Allergies[1] Current Medications[2] Patient Active Problem List Diagnosis Date Noted Skin abrasion 12/21/2024 Acute otitis media 12/21/2024 Abdominal bloating 08/31/2024 Abnormal uterine bleeding 08/31/2024 Anxiety 08/31/2024 Chronic idiopathic constipation 08/31/2024 Closed fracture of transverse process of lumbar vertebra (CMS/HCC) (HCC) 08/31/2024 COVID-19 08/31/2024 GERD (gastroesophageal reflux disease) 08/31/2024 Migraine headache 08/31/2024 Nausea 08/31/2024 Osteoarthritis of left shoulder 08/31/2024 Osteoarthritis of right shoulder 08/31/2024 Pre-op examination 08/31/2024 Shoulder pain 08/31/2024 Chest pain 08/31/2024 Depression 08/31/2024 Hypercholesterolemia 08/31/2024 Headache 08/31/2024 Diabetes type 2, controlled ([facility]) 08/31/2024 Acute costochondritis 08/31/2024 Left-sided chest wall pain 06/15/2024 Pain of upper abdomen 05/24/2024 Dry skin dermatitis 03/02/2024 Vaginal itching 03/02/2024 Other hemorrhoids 03/02/2024 Ill-fitting dentures 01/27/2024 Dermatitis 01/13/2024 Acute maxillary sinusitis 12/09/2023 Colon cancer screening 12/09/2023 Papanicolaou smear of vagina with high grade squamous intraepithelial lesion (HGSIL) 09/29/2023 Sore throat 08/25/2023 Age-related osteoporosis without current pathological fracture 08/25/2023 Neck pain 08/25/2023 Partial edentulism 06/03/2023 Dyspnea on exertion 05/23/2023 Fractured dental hinduism with loss of material 04/02/2023 Encounter for preventive health examination 03/13/2023 Decreased sensation of foot 03/13/2023 External hemorrhoid 02/09/2023 Umbilical pain 02/09/2023 Gingival recession, localized 01/29/2023 Dental caries on smooth surface limited to enamel 01/29/2023 Other headache syndrome 01/09/2023 Tipped teeth 01/02/2023 Dental calculus 01/02/2023 Generalized gingival recession 01/02/2023 Acute back pain with sciatica 08/13/2022 Epigastric pain 08/13/2022 Hip pain 08/13/2022 Moderate major depression, single episode ([facility]) ([facility]) 08/13/2022 Nosebleed 08/13/2022 Postmenopausal bleeding 08/13/2022 Sciatica 08/13/2022 Chronic left shoulder pain 08/13/2022 Face lesion 08/13/2022 Chronic pain of both shoulders 04/24/2022 Dementia with behavioral disturbance ([facility]) ([facility]) 04/24/2022 Early satiety 04/24/2022 Essential hypertension 04/24/2022 Mood disorder ([facility]) 04/24/2022 Type 2 diabetes mellitus without complication 04/24/2022 Lumbar radiculopathy 04/24/2022 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 Vaginal high risk HPV DNA test positive 11/01/2019 Hyperlipidemia 01/17/2016 Prediabetes 01/17/2016 Oral ulcer 10/09/2022 Plan of care: Provider evaluation: Yes provider briefly saw pt Call for transport to ED, Call to expect placed to [facility] by Dr Bladimir Montero, RN [1] Allergies Allergen Reactions Morphine confusion Tramadol [2] Current Outpatient Medications Medication Sig Dispense Refill acetaminophen (Tylenol 8 [...] FOR 2 DAYS Blood Glucose Monitoring Suppl (BookTour Lite) w/Device kit Use to monitor blood [...] MG capsule take one at bed time Ubdsfwrh-Oseazcmccb-Rfasgxdtg (FT Triple Antibiotic) 3.5-400-5000 ointment Apply 1 Application topically Once per day. 28.4 g 1 [place]-3 Fatty Acids (OMEGA 3 500 PO) 1 [...] TWICE DAILY DIRECTED No current facility-administered medications for this visit. documented in this encounter Plan of Treatment Upcoming Encounters Date Type Department Care Team (Late st Contact Info) Description 03/11/2025 2:30 PM EST Office Visit [facility] MEDICINE [address] [place] [address] Diamond Ponce MD [address] [place] [address] documented as of this encounter Visit Diagnoses Not on filedocumented in this encounter Additional Health Concerns Assessment Noted Time PHQ-9 Depression Total Score: 0 05/23/19 24 1:38 PM EST documented as of this encounter Care Teams Supersonic Engineer Relationship Specialty Start Date End Date Diamond Ponce MD [address] [place] [address] PCP - General Family Medicine 07/01/19 documented as of this encounter
--- OUTSIDE RECORDS SUMMARY | 2025-01-03 15:41 | XMS_ITS | Continuity of Care Document ---
Author Name [facility], Medical Address [address] [place] [id number] Organization Unknown Address [address] [place] [address] Medications No known medications Problems No known problems
--- OUTSIDE RECORDS SUMMARY | 2025-01-03 15:41 | XMS_ITS | Encounter Summary ---
Author Organization [employer] Address [address] [facility] [address] 7[address] [place] [address] Care Team Providers Care Stockbroker Name Role Phone Diamond Ponce MD Primary Care Provide r Encounter Details Date Type Department Care Team ([facility] st Contact Info) Description 09/06/2024 Orders Only [facility] MEDICINE [address] [place] [address] Michelle Leach NP [address] [place] [address] Left-sided chest wall pain (Primary Dx) Social History Tobacco Use Types [...] Description 03/11/2025 2:30 PM EST Office Visit [facility] MEDICINE [address] [place] [address] Diamond Ponce MD [address] [place] [address] documented as of this encounter Visit Diagnoses Diagnosis Left-sided chest wall pain- Primary Painful respiration documented in this encounter Additional Health Concerns Assessment Noted Time PHQ-9 Depression Total Score: 0 05/23/19 24 1:38 PM EST documented as of this encounter Care Teams Stockbroker Relationship Specialty Start Date End Date Diamond Ponce MD [address] [place] [address] PCP - General Family Medicine 07/01/19 documented as of this encounter
[2025-01-03 15:44] LABS: COVID-19 Test Negative (Negative); IDNOW Serial# 55D5AD1C; IDNOW Serial# 58CA691E; Influenza B2 Negative (Negative)
[2025-01-03 16:44] LABS: Troponin-I High Sensitivity < 2.7 ng/L (<3.5-17.0)
[2025-01-03 17:16] LABS: Thyroid Stimulating Hormone 1.01 uIU/mL (0.32-4.0)
[2025-01-03 17:40] VITALS: BP 124/58; PULSE 67; RESP 12; TEMP 36.3; O2SAT 96
[2025-01-03 17:44] VITALS: BP 124/58; PULSE 67; RESP 12; TEMP 36.3; O2SAT 96
== END 2025-01-03 17:53 | disposition home or self-care (01) ==
PROVIDERS: Physician Assistant Medical; Emergency Provider Emergency Medicine; PCP Internal Medicine
DX: R20.0 Anesthesia of skin (principal); R00.1 Bradycardia, unspecified; R06.02 Shortness of breath; Z79.899 Other long term (current) drug therapy; Z11.52 Encounter for screening for COVID-19
CPT/HCPCS: 36415; 70450; 71045; 80053; 83735; 83880; 84443; 84484; 85025; 85610; 87502; 87635; 93005; 99284; 99285

== ENCOUNTER → 2025-01-03 13:50 | Outpatient (BNV) | payer OTHER, SELFPAY | PROVIDERS: Emergency Provider Emergency Medicine; PCP Internal Medicine; Visit Provider Internal Medicine Cardiovascular Disease | DX: R00.1 Bradycardia, unspecified (principal) | CPT/HCPCS: 93010 ==

== ENCOUNTER → 2025-01-03 15:22 | Outpatient (BNV) | payer OTHER, SELFPAY | PROVIDERS: Emergency Provider Emergency Medicine; PCP Internal Medicine; Visit Provider Radiology Diagnostic Radiology | DX: R53.1 Weakness (principal) | CPT/HCPCS: 70450; 71045 ==

== ENCOUNTER 2025-01-07 08:04 | Outpatient (REF) | payer OTHER, SELFPAY ==
--- OUTSIDE RECORDS SUMMARY | 2025-01-03 13:40 | XMS_ITS | Encounter Summary ---
Author Organization [employer] Address [address] [place] [address] Care Team Providers Care Dress Draper Name Role Phone Diamond Ponce MD Primary Care Provide r Encounter Details Date Type Department Care Team ([facility] st Contact Info) Description 01/03/2025 1:40 PM EDT Office Visit [facility] [address] [place] [address] Daija Garrison MD [address] [place] [address] Weakness of right upper extremity (Primary Dx) Social History Tobacco Use Types [...] Sign Reading Time Taken Comments Blood Pressure 123/69 01/03/2025 1:33 PM EDT Pulse 68 01/03/2025 1:33 PM EDT Temperature 36.8 C (98.2 F) 01/03/2025 1:33 PM EDT Respiratory Rate 16 01/03/2025 1:33 PM EDT Oxygen Saturation 98% 01/03/2025 1:33 PM EDT Inhaled Oxygen Concentration - - Weight 67.8 kg (149 lb 6.4 oz) 01/03/2025 1:33 P M EDT Height 149.9 cm (4' 11 ) 01/03/2025 1:33 PM EDT Body Mass Index 30.18 01/03/2025 1:33 PM EDT documented in this encounter Progress Notes * Daija Garrison MD - 01/03/2025 1:40 PM EDT SUBJECTIVE: Eveline Do is a 69 y.o. year old female who presents for Walk In Center/numbness + weakness on one side. Denies recent illness, injury, or hospitalization. Acute Concerns: Patient complaining of right hand numbness x 2 hours that have been extending up to the right arm and shoulder and is associated to weakness of the right hand. He complains of right facial numbness starting approximately 30 minutes ago, associated to heaviness of his mouth and some headache. He hadpartial right hand numbness yesterday x 1 hour and symptoms resolved completely until this morning. He denies right leg numbness, patient came in a bus from home. He has never had similar symptoms inthe past. He Social History Social History Narrative Not on file Problem List[1] Family History[2] Review of Systems Constitutional: Negative for chills, fatigue and fever. HENT: Negative for congestion, ear pain, nosebleeds, rhinorrhea, sinus pressure, sore throat and trouble swallowing. Eyes: Negative for pain and discharge. Respiratory: Negative for cough, chest tightness and shortness of breath. Cardiovascular: Negative for chest pain, palpitations and leg swelling. Gastrointestinal: Negative for abdominal pain, blood in stool, constipation, diarrhea and nausea. Endocrine: Negative for polydipsia and polyuria. Genitourinary: Negative for dysuria, frequency, genital sores, pelvic pain and vaginal discharge. Musculoskeletal: Negative for back pain and neck pain. Skin: Negative for rash. Allergic/Immunologic: Negative for environmental allergies. Neurological: Positive for weakness, light-headedness and numbness. Negative for dizziness, seizures and headaches. Hematological: Negative for adenopathy. Psychiatric/Behavioral: Negative for agitation, behavioral problems, self-injury and suicidal ideas. OBJECTIVE: Vitals: 01/03/25 1333 BP: 123/69 Pulse: 68 Resp: 16 Temp: 98.2 ??F (36.8 ??C) SpO2: 98% Physical Exam Constitutional: Appearance: Normal appearance. HENT: Right Ear: Tympanic membrane and ear canal normal. Left Ear: Tympanic membrane and ear canal normal. Mouth/Throat: Mouth: Mucous membranes are moist. Pharynx: No oropharyngeal exudate or posterior oropharyngeal erythema. Eyes: Pupils: Pupils are equal, round, and reactive to light. Cardiovascular: Rate and Rhythm: Normal rate and regular rhythm. Heart sounds: No murmur heard. Pulmonary: Breath sounds: Normal breath sounds. No wheezing. Abdominal: General: Bowel sounds are normal. Palpations: Abdomen is soft. Tenderness: There is no abdominal tenderness. Musculoskeletal: General: No tenderness. Normal range of motion. Cervical back: Normal range of motion. No tenderness. Skin: General: Skin is warm. Neurological: General: No focal deficit present. Mental Status: She is alert and oriented to person, place, and time. Cranial Nerves: Cranial nerve deficit (decreased sensation on right side of the face) present. Motor: Weakness (right arm) present. Psychiatric: Mood and Affect: Mood normal. Problem List Items Addressed This Visit Weakness of right upper extremity - Primary Given rapid progression of symptoms and presence of risk factors namely DM and HTN, a CVA needs to be ruled out. Patient will be sent to ED via ambulance, I called [facility] and the rest of signout to deyvi Templeton and specified that there has been only 2 hours since onset of symptoms, in case she has an ischemic event, she may be eligible for thrombolytic therapy. I explained POC to patient and she agreed with it. Alternatively, patient can follow-up with PCP after discharge, rule out complex migraine versus anxiety. Follow Up: Medications Ordered Prior to Encounter[3] [1] Patient Active Problem List Diagnosis Chronic pain of both shoulders Dementia with behavioral disturbance (CMS/HCC) (HCC) Early satiety Essential hypertension Hyperlipidemia Mood disorder (CMS/HCC) Type 2 diabetes mellitus without complication Lumbar radiculopathy Acute back pain with sciatica Epigastric pain Hip pain Moderate major depression, single episode (CMS/HCC) (HCC) Nosebleed Postmenopausal bleeding Prediabetes Sciatica Chronic left shoulder pain Face lesion Oral ulcer Tipped teeth Dental calculus Generalized gingival recession Other headache syndrome Gingival recession, localized Dental caries on smooth surface limited to enamel External hemorrhoid Umbilical pain Encounter for preventive health examination Decreased sensation of foot Fractured dental orthodox with loss of material Dyspnea on exertion Partial edentulism Sore throat Age-related osteoporosis without current pathological fracture Neck pain Acute maxillary sinusitis Colon cancer screening Dermatitis Ill-fitting dentures Dry skin dermatitis Vaginal itching Other hemorrhoids Pain of upper abdomen Left-sided chest wall pain Abdominal bloating Abnormal uterine bleeding Anxiety Chronic idiopathic constipation Closed fracture of transverse process of lumbar vertebra (CMS/HCC) (HCC) COVID-19 GERD (gastroesophageal reflux disease) Migraine headache Nausea 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 Papanicolaou smear of vagina with high grade squamous intraepithelial lesion (HGSIL) Pre-op examination Shoulder pain Vaginal high risk HPV DNA test positive 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 DO NOT BREAK, CRUSH, DISSOLVE OR CHEW albuterol 108 (90 Base) MCG/ACT inhaler Inhale 2 puffs every 4 (four) hours if needed for wheezing or shortness of breath. 18 g 0 alendronate (Fosamax) 70 MG tablet take 1 tablet by mouth once a week with 6 to 8 oz of water 30 min before first food of day. do not lie down for 30 minutes 12 tablet 0 [] amoxicillin-clavulanate (Augmentin) 875-125 MG tablet Take 1 tablet by mouth 2 times daily for 7 days. 14 tablet 0 atorvastatin (Lipitor) 40 MG tablet Take 1 tablet (40 mg) by mouth Once per day. 90 tablet 1 baclofen (Lioresal) 10 MG tablet Take one tablet TID PRN 60 tablet 0 bisacodyl (Dulcolax) 5 MG EC tablet TAKE 2 TABLETS BY MOUTH EVERY DAY AT BEDTIME FOR 2 DAYS Blood Glucose Monitoring Suppl (Adapt [place] Lite) w/Device kit Use to monitor blood sugar twice daily 1 kit 0 carboxymethylcellulose (Artificial Tears) 1 % ophthalmic solution Administer 1 drop into both eyes 3 times daily. 15 mL 3 celecoxib (CeleBREX) 100 MG capsule Take 1 capsule (100 mg) by mouth 2 times daily. 60 capsule 0 cetirizine (ZyrTEC) 10 MG tablet Take 1 tablet (10 mg) by mouth Once per day. 90 tablet 1 D3 Super Strength 50 MCG (2000 UT) capsule TAKE 1 CAPSULE BY MOUTH EVERY MORNING 30 capsule 11 Diclofenac Sodium 1 % [...] spray into each nostril Once per day. (Patient not taking: Reported on 09/15/2024) 16 g 3 FT ClearLax 17 GM/SCOOP powder Take 17 g by mouth Once per day. gabapentin (Neurontin) 100 MG capsule TAKE 1 CAPSULE BY MOUTH AT BEDTIME NEEDED FOR PAIN 30 capsule 0 glucose blood (FREESTYLE LITE) test strip 1 each by Other route every 12 (twelve) hours. 100 each 2 ibuprofen 800 MG tablet Take 1 tablet by mouth every 6 (six) hours if needed for mild pain. ketoconazole (NIZOral) 2 % shampoo Apply topically 2 (two) times a week. 120 mL 2 lidocaine (Lidoderm) 5 % patch Apply 1 [...] MG capsule take one at bed time Bujsufei-Yncejfdcvu-Ioeuambnf (FT Triple Antibiotic) 3.5-400-5000 ointment Apply 1 Application topically Once per day. 28.4 g 1 [place]-3 Fatty Acids (OMEGA 3 500 PO) 1 tablet by mouth every other day polyvinyl alcohol (Liquifilm Tears) 1.4 % ophthalmic solution INSTILL 1 DROP IN EACH EYE THREE TIMES DAILY Reguloid 28.3 % powder MIX 1 TABLESPOONFUL IN WATER AND TAKE TWICE DAILY TO THREE TIMES DAILY IF TOLERATED Simethicone Ultra Strength 180 MG capsule TAKE 1 CAPSULE BY MOUTH TWICE DAILY AFTER MEALS 60 capsule 0 Spacer/Aero-Holding Chambers (AeroChamber Mini Chamber) device Use with albuterol MDI as needed 1 each 0 triamcinolone (Kenalog) 0.1 % cream APPLY TOPICALLY IN THE MORNING AND AT BEDTIME NEEDED FOR PAIN AND SWELLING 30 g 1 TRUEplus Lancets 33G misc TEST BLOOD SUGAR TWICE DAILY DIRECTED No current facility-administered medications on file prior to visit. documented in this encounter Miscellaneous Notes * Assessment & Plan Note - Daija Garrison MD - 01/03/2025 1:31 PM EDT Associated Problem(s): Weakness of right upper extremity Given rapid progression of symptoms and presence of risk factors namely DM and HTN, a CVA needs to be ruled out. Patient will be sent to ED via ambulance, I called [facility] and the rest of signout to deyvi Templeton and specified that there has been only 2 hours since onset of symptoms, in case she has an ischemic event, she may be eligible for thrombolytic therapy. I explained POC to patient and she agreed with it. Alternatively, patient can follow-up with PCP after discharge, rule out complex migraine versus anxiety. documented in this encounter Plan of Treatment Upcoming Encounters Date Type Department Care Team (Late st Contact Info) Description 03/11/2025 2:30 PM EST Office Visit [facility] [address] [place] [address] Diamond Ponce MD [address] [place] [address] documented as of this encounter Visit Diagnoses Diagnosis Weakness of right upper extremity- Primary Other musculoskeletal symptoms referable to limbs documented in this encounter Additional Health Concerns Assessment Noted Time PHQ-9 Depression Total Score: 0 05/23/19 24 1:38 PM EST documented as of this encounter Care Teams Dress Draper Relationship Specialty Start Date End Date Diamond Ponce MD [address] [place], [place] [phone] PCP - General Family Medicine 07/01/19 documented as of this encounter
--- OUTSIDE RECORDS SUMMARY | 2025-01-06 11:30 | XMS_ITS | Encounter Summary ---
Author Organization [employer] Address [address] [facility] [address] [place] [address] Care Team Providers Care Sample Color Maker Name Role Phone Diamond Ponce MD Primary Care Provide r Encounter Details Date Type Department Care Team ([facility] st Contact Info) Description 01/06/2025 11:30 AM EDT Office Visit [facility] MEDICINE [address] [place] [address] Michelle Leach NP [address] [place] [address] Social History Tobacco Use Types Packs/Day Years [...] Sign Reading Time Taken Comments Blood Pressure 120/88 01/06/2025 11:47 AM EDT Pulse 70 01/06/2025 11:47 AM EDT Temperature 36.7 C (98.1 F) 01/06/2025 11:47 AM EDT Respiratory Rate 15 01/06/2025 11:47 AM EDT Oxygen Saturation 97% 01/06/2025 11:47 AM EDT Inhaled Oxygen Concentration - - Weight 66.3 kg (146 lb 3.2 oz) 01/06/2025 11:47 AM EDT Height 149.9 cm (4' 11 ) 01/06/2025 11:47 AM EDT Body Mass Index 29.53 01/06/2025 11:47 AM EDT documented in this encounter Plan of Treatment Upcoming Encounters Date Type Department Care Team (Late st Contact Info) Description 03/11/2025 2:30 PM EST Office Visit [facility] MEDICINE [address] [place], [place] [phone] Diamond Ponce MD [address] [place] [address] documented as of this encounter Visit Diagnoses Not on filedocumented in this encounter Additional Health Concerns Assessment Noted Time PHQ-9 Depression Total Score: 0 05/23/19 24 1:38 PM EST documented as of this encounter Care Teams Sample Color Maker Relationship Specialty Start Date End Date Diamond Ponce MD [address] [place] [address] PCP - General Family Medicine 07/01/19 documented as of this encounter
--- OUTSIDE RECORDS SUMMARY | 2025-01-07 08:20 | XMS_ITS | Encounter Summary ---
Author Organization [employer] Address [address] [facility] 7t [place] [address] Care Team Providers Care Ammunition Assembly I Laborer Name Role Phone Diamond Ponce MD Primary Care Provide r Reason for Visit * Reason Onset Date Comments Med Refill 04/23/2022 Encounter Details Date Type Department Care Team ([facility] st Contact Info) Description 04/23/2022 Telephone [facility] MEDICINE [address] [place] [address] Diamond Ponce MD [address] [place] [address] Med Refill Social History Tobacco Use Types [...] 2:30 PM EST Office Visit [facility] MEDICINE [address] [place], [place] [phone] Diamond Ponce MD [address] [place], [place] [phone] documented as of this encounter Visit Diagnoses Not on filedocumented in this encounter Care Teams Ammunition Assembly I Laborer Relationship Specialty Start Date End Date Diamond Ponce MD [address] [place] [phone] PCP - General Family Medicine 07/01/19 documented as of this encounter
--- OUTSIDE RECORDS SUMMARY | 2025-01-07 08:20 | XMS_ITS | Encounter Summary ---
Author Organization [employer] Address [address] [facility] 7t [place] [address] Care Team Providers Care Assistant Warehouse Manager Name Role Phone Diamond Ponce MD Primary Care Provide r Reason for Visit * Reason Onset Date Comments triage 04/23/2022 Encounter Details Date Type Department Care Team ([facility] st Contact Info) Description 04/23/2022 Telephone [facility] MEDICINE [address] [place] [address] Diamond Ponce MD [address] [place] [address] triage Social History Tobacco Use Types Packs/Day [...] caller The caller accepted this outcome speaks greek documented in this encounter Plan of Treatment Upcoming Encounters Date Type Department Care Team (Late st Contact Info) Description 03/11/2025 2:30 PM EST Office Visit [facility] MEDICINE [address] [place] [phone] Diamond Ponce MD [address] [place] [address] documented as of this encounter Visit Diagnoses Not on filedocumented in this encounter Care Teams Assistant Warehouse Manager Relationship Specialty Start Date End Date Diamond Ponce MD [address] [place] [phone] PCP - General Family Medicine 07/01/19 documented as of this encounter
--- OUTSIDE RECORDS SUMMARY | 2025-01-07 08:21 | XMS_ITS | Encounter Summary ---
Author Organization [employer] Address [address] [facility] 7t [place] [address] Care Team Providers Care Cell Liner Name Role Phone Diamond Ponce MD Primary Care Provide r Reason for Visit * Reason Onset Date Comments Prior Authorization 03/04/2023 Encounter Details Date Type Department Care Team ([facility] Contact Info) Description 03/04/2023 Telephone [facility] ADULT DENTAL [address] [place] [address] Aron No DDS [address] [place] [address] Prior Authorization Social History Tobacco Use Types [...] Description 03/11/2025 2:30 PM EST Office Visit [facility] MEDICINE [address] [place], [place] [phone] Diamond Ponce MD [address] [place] [address] documented as of this encounter Visit Diagnoses Not on filedocumented in this encounter Additional Health Concerns Assessment Noted Time PHQ-9 Depression Total Score: 0 04/24/19 23 2:26 PM EST documented as of this encounter Care Teams Cell Liner Relationship Specialty Start Date End Date Diamond Ponce MD [address] [place], [place] [phone] PCP - General Family Medicine 07/01/19 documented as of this encounter
--- OUTSIDE RECORDS SUMMARY | 2025-01-07 08:21 | XMS_ITS | Encounter Summary ---
Author Organization [employer] Address [address] [facility] [address] [place] [address] Care Team Providers Care Briefcase Sewer Name Role Phone Diamond Ponce MD Primary Care Provide r Encounter Details Date Type Department Care Team (Latest Contact Info) Description 01/06/2025 Travel Social History Tobacco Use Types Packs/Day [...] Description 03/11/2025 2:30 PM EST Office Visit [facility] MEDICINE [address] [place] [address] Diamond Ponce MD [address] [place] [address] documented as of this encounter Visit Diagnoses Not on filedocumented in this encounter Additional Health Concerns Assessment Noted Time PHQ-9 Depression Total Score: 0 05/23/19 24 1:38 PM EST documented as of this encounter Care Teams Briefcase Sewer Relationship Specialty Start Date End Date Diamond Ponce MD [address] [place] [phone] PCP - General Family Medicine 07/01/19 documented as of this encounter
--- OUTSIDE RECORDS SUMMARY | 2025-01-07 08:21 | XMS_ITS | Encounter Summary ---
Author Organization [employer] Address [address] [facility] 7t [place] [address] Care Team Providers Care Paranormal Investigator Name Role Phone Diamond Ponce MD Primary Care Provide r Reason for Visit * Reason Onset Date Comments ER Follow-up 01/05/2025 Encounter Details Date Type Department Care Team ([facility] Contact Info) Description 01/05/2025 Telephone [facility] MEDICINE [address] [place] [address] Diamond Ponce MD [address] [place] [address] ER Follow-up Social History Tobacco Use Types Packs/Day Years [...] Telephone Encounter - Emelina Hendrix RN - 01/05/2025 3:25 PM EDT TC placed to patient [phone] via [employer] interpreters (Brianne #[id number]) in regards to below message.Patient reports she was seen at [facility] ED on 01/03/25 for R arm numbness. Patient had a head CT scan which was unremarkable and was RX'd ASA 81mg. Patient confirms she is taking ASA as Rx'd however has had 2 more episodes of R arm numbness (one yesterday and one today). Patient reports they usually resolve on their own however patient would like to be further evaluated to determine cause and POC. Patient denies any swelling or signs of infection. Patient scheduled for an appt for tomorrow 01/06/2025 at 11:30am with LABOR TRAINER [employer]. Patient advised if she develops any chest pain, swelling, numbness/tin gling that doesn't resolve or slurred speech to seek ED. Patient verbalized understanding. Patient to f/u PRN. Multiple (2) protocols were used on this call. Disposition for Call: See in Office or Video Visit Today or Tomorrow Protocol Used: Arm Pain (Pediatric) Protocol-Based Disposition: Go to Office or Video Visit Now Override (Final) Disposition: See in Office or Video Visit Today or Tomorrow Override Reason: Already seen and questions Override Notes: Went to [facility] ED on 01/03/25 Video visit not offered Positive Triage Questions: * Numbness (loss of sensation) or tingling (pins and needles) * Cause is uncertain * All higher-acuity triage questions were negative Protocol Used: Arm Pain (Adult) Protocol-Based Disposition: See in Office or Video Visit Today or Tomorrow Video visit not offered Positive Triage Questions: * Numbness (i.e., loss of sensation) in hand or fingers * Patient wants to be seen * Arm pain * All higher-acuity triage questions were negative Care Advice Discussed: * Pain Medicines * Reasons To Call Back - Severe pain lasts over 2 hours after pain medicine - Arm swelling occurs - Signs of infection occur (such as spreading redness, warmth, fever) - You become worse * Telephone Encounter - Ricardo Woods - 01/05/2025 1:22 PM EDT Patient calling to report ED visit on : Date: 01/03 Hospital: [facility] Seen for: numbness arms and hands Symptomatic Yes *if yes message should go to Triage Patient advised will forward to team nurse for follow up Contact pt at [phone] (greenlandic) documented in this encounter Plan of Treatment Upcoming Encounters Date Type Department Care Team (Late st Contact Info) Description 03/11/2025 2:30 PM EST Office Visit [facility] MEDICINE [address] [place], [place] [phone] Diamond Ponce MD [address] [place], [place] [phone] documented as of this encounter Visit Diagnoses Not on filedocumented in this encounter Additional Health Concerns Assessment Noted Time PHQ-9 Depression Total Score: 0 05/23/19 24 1:38 PM EST documented as of this encounter Care Teams Paranormal Investigator Relationship Specialty Start Date End Date Diamond Ponce MD [address] [place] [address] PCP - General Family Medicine 07/01/19 documented as of this encounter
--- OUTSIDE RECORDS SUMMARY | 2025-01-07 08:21 | XMS_ITS | Encounter Summary ---
Author Organization [employer] Address [address] [facility] [address] [place] [address] Care Team Providers Care Territory Representative Name Role Phone Diamond Ponce MD Primary Care Provide r Encounter Details Date Type Department Care Team ([facility] st Contact Info) Description 06/29/2024 Orders Only [facility] PEDS [address] [place], [place] [phone] Carla Mckeon Social History Tobacco Use Types [...] Description 03/11/2025 2:30 PM EST Office Visit [facility] MEDICINE [address] [place] [address] Diamond Ponce MD [address] [place] [address] documented as of this encounter Procedures Procedure Name Priority Date/Time Associated Diagnosis Comments BIOPSY VAGINAL Routine 05/04/2024 12:00 AM EST documented in this encounter Results * (ABNORMAL) Biopsy vaginal (05/04/2024 12:00 AM EST) us Historical Provider IN CLINIC/BEDSIDE ORDERAB LES Final Result [facility] documented in this encounter Visit Diagnoses Not on filedocumented in this encounter Additional Health Concerns Assessment Noted Time PHQ-9 Depression Total Score: 0 05/23/19 24 1:38 PM EST documented as of this encounter Care Teams Territory Representative Relationship Specialty Start Date End Date Diamond Ponce MD [address] [place] [address] PCP - General Family Medicine 07/01/19 documented as of this encounter
--- OUTSIDE RECORDS SUMMARY | 2025-01-07 08:21 | XMS_ITS | Encounter Summary ---
Author Organization [employer] Address [address] [place] [address] Care Team Providers Care Supervisor Backfilling Name Role Phone Diamond Ponce MD Primary Care Provide r Encounter Details Date Type Department Care Team ([facility] Contact Info) Description 01/03/2025 Orders Only [facility] External Provider, [facility] Social History Tobacco Use Types Packs/Day Years [...] Description 03/11/2025 2:30 PM EST Office Visit [facility] MEDICINE [address] [place], [place] [phone] Diamond Ponce MD [address] [place], [place] [phone] documented as of this encounter Procedures Procedure Name Priority Date/Time Associated Diagnosis Comments XR CHEST 1 VIEW Routine 01/04/2025 9:[address] HEAD WO CONTRAST Routine 01/03/2025 4 :28 PM EDT documented in this encounter Results * XR Chest 1 View (01/04/2025 9:47 AM EDT) Anatomical Region Laterality Modality Chest Radiographic Nicky ging 01/04/2025 9:47 AM EDT Narrative 01/04/2025 9:48 AM EDT [facility] [address] [place] [address] XRay Report Signed Patient: Eveline Novoa MR#: [id number] : 1955 Acct:[id number] Age/Sex: 69 / F ADM Date: 01/03/25 Loc: HO.ED Attending Dr: Ordering Physician: Mimi Carrillo Date of Service: 01/03/25 Procedure(s): XR chest 1V Accession Number(s): [id number] cc: Diamond oPnce MD; Mimi Carrillo Reason for Exam: weakness CLINICAL HISTORY: weakness 1 view chest x-ray Comparison: CR/SR - XR CHEST 2V - 04/19/24 15:27 EST Findings: No acute pulmonary disease. Normal size heart. Questionable nodular opacity overlying the right aspect of the heart measuring 2.4 cm is unchanged from previous exam and may be from osseous degenerative changes however is indeterminate. Chest CT is recommended on an outpatient/nonemergent basis for further characterization. IMPRESSION: 1. Questionable nodular opacity overlying the right aspect of the heart measuring 2.4 cm is unchanged from previous exam and may be from osseous degenerative changes however is indeterminate. Chest CT is recommended on an outpatient/nonemergent basis for further characterization. 2. No acute pulmonary disease. This document has been electronically signed by: Stephon Frost DO on 01/04/2025 09:47:46 Dictated By: Stephon Frost DO Signed By: <Electronically signed by Stephon Frost DO in OV> 01/04/25947 DD/ 6 TD/TT: 01/04/25946 Wire Charger: Procedure Note Donotuseinterpreter, Image - 01/04/2025 [place] [address] XRay Report Signed Patient: Eveline Novoa MR#: [id number] : 4Acct:[id number] Age/Sex: 69 / FADM Date: 01/03/25 Loc: HO.ED Attending Dr: Ordering Physician: Mimi Carrillo Date of Service: 01/03/25 Procedure(s): XR chest 1V Accession Number(s): [id number] cc: Diamond Ponce MD; Mimi Carrillo Reason for Exam: weakness CLINICAL HISTORY: weakness 1 view chest x-ray Comparison: CR/SR - XR CHEST 2V - 04/19/24 15:27 EST Findings: No acute pulmonary disease. Normal size heart. Questionable nodular opacity overlying the right aspect of the heart measuring 2.4 cm is unchanged from previous exam and may be from osseous degenerative changes however is indeterminate. Chest CT is recommended on an outpatient/nonemergent basis for further characterization. IMPRESSION: 1. Questionable nodular opacity overlying the right aspect of the heart measuring 2.4 cm is unchanged from previous exam and may be from osseous degenerative changes however is indeterminate. Chest CT is recommended on an outpatient/nonemergent basis for further characterization. 2. No acute pulmonary disease. This document has been electronically signed by: Stephon Frost DO on 01/04/2025 09:47:46 Dictated By: Stephon Frost DO Signed By: <Electronically signed by Stephon Frost DO in OV> 01/04/25947 DD/ 6 TD/TT: 01/04/25946 Wire Charger: [facility] External Provider IMG XR PROCEDURES Final Result * CT Head w/o Contrast (01/03/2025 4:28 PM EDT) Anatomical Region Laterality Modality Head, Neck Computed Tomogra phy 01/03/2025 4:28 PM EDT Narrative 01/03/2025 4:30 PM EDT [place] [address] CT Scan Report Signed Patient: Eveline Novoa MR#: [id number] : 1955 Acct:[id number] Age/Sex: 69 / F ADM Date: 01/03/25 Loc: HO.ED Attending Dr: Ordering Physician: Deo Hernandez MD Date of Service: 01/03/25 Procedure(s): CT head/brain wo IV con Accession Number(s): [id number] cc: Diamond Ponce MD; Deo Hernandez MD Report Number: [id number]: Total DLP = 563.00 mGy-cm Reason for Exam: right arm numbness CLINICAL HISTORY: right arm numbness CT head without contrast Comparison: CT/ME/SR - CT HEAD/BRAIN WO IV CON - 06/21/24 10:27 EDT Findings: Involutional change and nonspecific white matter hypodensity. No intracranial mass, midline shift, hydrocephalus, or acute hemorrhage. Orbits, paranasal sinuses, and mastoid air cells are unremarkable. No skull fracture Impression: 1. No acute findings This document has been electronically signed by: Gaviota Street MD on 01/03/2025 16:28:55 Dictated By: Gaviota Street MD Signed By: <Electronically signed by Gaviota Street MD in OV> 01/03/25 1630 DD/ 1628 TD/TT: 01/03/25 162 Wire Charger: Procedure Note Donotuseinterpreter, Image - 01/03/[address] [place] [address] [address] Scan Report Signed Patient: Eveline Novoa MR#: [id number] : 4Acct:[id number] Age/Sex: 69 / FADM Date: 01/03/25 Loc: HO.ED Attending Dr: Ordering Physician: Deo Hernandez MD Date of Service: 01/03/25 Procedure(s): CT head/brain wo IV con Accession Number(s): [id number] cc: Diamond Ponce MD; Deo Hernandez MD Report Number: [id number]: Total DLP = 563.00 mGy-cm Reason for Exam: right arm numbness CLINICAL HISTORY: right arm numbness CT head without contrast Comparison: CT/ME/SR - CT HEAD/BRAIN WO IV CON - 06/21/24 10:27 EDT Findings: Involutional change and nonspecific white matter hypodensity. No intracranial mass, midline shift, hydrocephalus, or acute hemorrhage. Orbits, paranasal sinuses, and mastoid air cells are unremarkable. No skull fracture Impression: 1. No acute findings This document has been electronically signed by: Gaviota Street MD on 01/03/2025 16:28:55 Dictated By: Gaviota Street MD Signed By: <Electronically signed by Gaviota Street MD in OV> 01/03/25 1630 DD/ 1628 TD/TT: 01/03/25 1628 Wire Charger: [facility] External Provider IMG CT PROCEDURES Edited Result - Final documented in this encounter Visit Diagnoses Not on filedocumented in this encounter Additional Health Concerns Assessment Noted Time PHQ-9 Depression Total Score: 0 05/23/19 24 1:38 PM EST documented as of this encounter Care Teams Supervisor Backfilling Relationship Specialty Start Date End Date Diamond Ponce MD [address] [place] [address] PCP - General Family Medicine 07/01/19 documented as of this encounter
--- OUTSIDE RECORDS SUMMARY | 2025-01-07 08:21 | XMS_ITS | Clinical Summary ---
Author Organization [facility] Address [address] [place] [address] Phone Care Team Providers Care Telecommunication Operator Name Role Phone Diamond Ponce MD [...] file Insurance MEDICARE PART A & B [facility] MEDICARE PART A & B [place] HEALTH MEDICARE [place] A & [place] A & B [facility] MEDICARE PART A & B [place] [address] [place] [address] MEDICARE PART A & B Member Subscriber Plan / Payer (Ef fective 2021-) Name:Eveline Bryan Member ID:[id number] Relation to Subscriber:Self Name:Eveline Bryan Subscriber ID:[id number] Payer ID:[id number] Group ID:Not on file Type:Medicare Address: [employer] [address] [facility] [address] [place] [address] MEDICARE PART A & B Member Subscriber Plan / Payer (Ef fective 2021-) Name:Eveline Bryan Member ID:[id number] Relation to Subscriber:Self Name:Nikolai jacques Nikhil Eveline Subscriber ID:[id number] Payer ID:[id number] Group ID:Not on file Type:Medicare Address: [employer] [address] [place] [phone] [place] PART A & B Member Subscriber Plan / Payer (Ef fective 2021-Present) Name:Eveline Bryan Member ID:[id number] Relation to Subscriber:Self Name:Nikolai Herrera Eveline Subscriber ID:[id number] Payer ID:[id number] Group ID:Not on file Type:Medicare Address: [employer] [address] [place] Care Teams Telecommunication Operator Relationship Specialty Start Date End Date Diamond Ponce MD [address] [place] [address] PCP - General Internal Medicine 11/05/21 Additional Source Comments The information contained in this document represents components of the legal health record. It is not the complete legal health record.[facility]
--- OUTSIDE RECORDS SUMMARY | 2025-01-07 08:22 | XMS_ITS | Encounter Summary ---
Author Organization [facility] Address [address] [place] [address] 7t [place] [address] Care Team Providers Care Shot Lighter Name Role Phone Diamond Ponce MD Primary Care Provide r Encounter Details Date Type Department Care Team (Late Contact Info) Description 12/11/2022 Orders Only [facility] MED[facility]INE [address] [place] [phone] Provider, MD Ya Social History Tobacco Use [...] Description 03/11/2025 2:30 PM EST Office Visit [facility] [address] [place] [phone] Diamond Ponce MD [address] [place] [address] [phone] documented as of this encounter Procedures Procedure [...] documented as of this encounter Care Teams Shot Lighter Relationship Specialty Start Date End Date Diamond Ponce MD [address] [place] [address] PCP - General Family Medicine 07/01/19 documented as of this encounter
--- OUTSIDE RECORDS SUMMARY | 2025-01-07 08:22 | XMS_ITS | Patient Health Record ---
Author Organization [facility] Address [address] [place] [address] Care Team Providers Care Photographers' Model Name Role Phone Jacey VILLAGOMEZ, Tesha Primary Care Provider U Marc Bob Unavailable [phone] Reason For Referral No Information Medications Medication [...] Status Risk Notes Problem Irritable bowel syndrome (28316697) Irritable bowel syndrome (564.1) Active confirmed Problem Generalized abdominal pain (292398670) Abdominal pain, generalized (789.07) Active confirmed Problem Screening for colon cancer (408427418) Screening for colon cancer (V76.51) Active confirmed Plan Of Treatment Future Test Test Name Order Date COLONOSCOPY 04/13/2013 Insurance Providers Payer Name Payer Address Payer Phone Subscriber Number Group Number Insured Name Patient Relationship to Insured Coverage Start Date Coverage End Date [facility] [address] [address] [place], [place] [id number] SUNDAY COLON Self - patient is the insured Medical (General) History Medical History History ICD Code Denies [place],DM,CVA,Lung disease,renal dise ase Surgical History Surgery Date(Month/Year) hysterectomy varicose vein on left leg
--- OUTSIDE RECORDS SUMMARY | 2025-01-07 08:23 | XMS_ITS | Encounter Summary ---
Author Organization [employer] Address [address] [place] [address] Care Team Providers Care Senior Outside Sales Representative Name Role Phone Diamond Ponce [...] Description 03/11/2025 2:30 PM EST Office Visit [facility] MEDICINE [address] [place] [address] Diamond Ponce MD [address] [place] [address] documented as of this encounter Visit Diagnoses Not on filedocumented in this encounter Additional Health Concerns Assessment Noted Time PHQ-9 Depression Total Score: 0 05/23/19 24 1:38 PM EST documented as of this encounter Care Teams Senior Outside Sales Representative Relationship Specialty Start Date End Date Diamond Ponce MD [address] [place] [address] PCP - General Family Medicine 07/01/19 documented as of this encounter
--- OUTSIDE RECORDS SUMMARY | 2025-01-07 08:23 | XMS_ITS | Encounter Summary ---
Author Organization [employer] Address [address] [facility] 7t [place] [address] Care Team Providers Care Service Desk Analyst Name Role Phone Diamond Ponce MD Primary Care Provide r Reason for Visit * Reason Onset Date Comments fyi 11/11/2024 Encounter Details Date Type Department Care Team ([facility] Contact Info) Description 11/11/[address] [facility] MEDICINE [address] [place] [address] Diamond Ponce MD [address] [place] [address] fyi Social History Tobacco Use Types Packs/Day [...] up their med boxes. -Contact [facility] at [phone] documented in this encounter Plan of Treatment Upcoming Encounters Date Type Department Care Team (Late st Contact Info) Description 03/11/2025 2:30 PM EST Office Visit [facility] MEDICINE [address] [place] [address] Diamond Ponce MD [address] [place] [address] documented as of this encounter Visit Diagnoses Not on filedocumented in this encounter Additional Health Concerns Assessment Noted Time PHQ-9 Depression Total Score: 0 05/23/19 24 1:38 PM EST documented as of this encounter Care Teams Service Desk Analyst Relationship Specialty Start Date End Date Diamond Ponce MD [address] [place] [address] PCP - General Family Medicine 07/01/19 documented as of this encounter
--- OUTSIDE RECORDS SUMMARY | 2025-01-07 08:23 | XMS_ITS | Encounter Summary ---
Author Organization [employer] Address [address] [facility] 7t [place] [address] Care Team Providers Care Farm Adviser Name Role Phone Diamond Ponce MD Primary Care Provide r Reason for Visit * Reason Onset Date Comments Nurse Triage 01/03/2025 Encounter Details Date Type Department Care Team ([facility] [address] Contact Info) Description 01/03/[address] [facility] MEDICINE [address] [place] [address] Sofia Montero RN [address] [place] [address] Nurse Triage Social History Tobacco Use Types [...] encounter Miscellaneous Notes * Telephone Encounter - Lisa Bush RN - 01/04/2025 10:06 AM EDT Cloud Content checked , pt. Seen yesterday 01/03/25 for numbness and tingling in R hand radiating up arm. CT scan head WNL. Pt. Prescribed baby aspirin daily. TC placed to pt. Pt. Reports asymptomatic today. Pt. Plans to bulk picker baby aspirin today and start taking. Pt. Will f/up with PCP at scheduled appointment in Feb or sooner prn if symptoms recur or for any new concerning symptoms * Telephone Encounter - Sofia Montero RN [...] hands. Significant deficit in right side noted. MD made aware who advised ED now. Vitals taken and WNL. MD obsessive pt as well and agreed with [...] 08/31/2024 Headache 08/31/2024 Diabetes type 2, controlled ([facility]) 08/31/2024 Acute costochondritis 08/31/2024 Left-sided chest wall [...] 06/03/2023 Dyspnea on exertion 05/23/2023 Fractured dental caodaism with loss of material 04/02/2023 Encounter for [...] pain 08/13/2022 Moderate major depression, single episode ([facility]) ([facility]) 08/13/2022 Nosebleed 08/13/2022 Postmenopausal bleeding 08/13/2022 Sciatica 08/13/2022 Chronic left shoulder pain 08/13/2022 Face lesion 08/13/2022 Chronic pain of both shoulders 04/24/2022 Dementia with behavioral disturbance ([facility]) ([facility]) 04/24/2022 Early satiety 04/24/2022 Essential hypertension 04/24/2022 Mood disorder ([facility]) 04/24/2022 Type 2 diabetes mellitus without complication 04/24/2022 Lumbar radiculopathy 04/24/2022 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 28.4 g 1 Everson-3 Fatty Acids (OMEGA 3 500 PO) 1 [...] PM EST Office Visit [facility] MEDICINE [address] [place] [address] Diamond Ponce MD [address] [place] [address] documented as of this encounter Visit Diagnoses Not on filedocumented in this encounter Additional Health Concerns Assessment Noted Time PHQ-9 Depression Total Score: 0 05/23/19 24 1:38 PM EST documented as of this encounter Care Teams Farm Adviser Relationship Specialty Start Date End Date Diamond Ponce MD [address] [place] [address] PCP - General Family Medicine 07/01/19 documented as of this encounter
--- OUTSIDE RECORDS SUMMARY | 2025-01-07 08:23 | XMS_ITS | Encounter Summary ---
Author Organization [employer] Address [address] [facility] 7t [place] [address] Care Team Providers Care Director Of Testing Name Role Phone Diamond Ponce MD Primary Care Provide r Reason for Visit * Reason Onset Date Comments dec recall 01/03/2025 Encounter Details Date Type Department Care Team ([facility] Contact Info) Description 01/03/2025 Telephone [facility] MEDICINE [address] [place] [address] Diamond Ponce MD [address] [place] [address] feb recall Social History Tobacco Use Types [...] Description 03/11/2025 2:30 PM EST Office Visit [facility] MEDICINE [address] [place] [address] Diamond Ponce MD [address] [place] [address] documented as of this encounter Visit Diagnoses Not on filedocumented in this encounter Additional Health Concerns Assessment Noted Time PHQ-9 Depression Total Score: 0 05/23/19 24 1:38 PM EST documented as of this encounter Care Teams Director Of Testing Relationship Specialty Start Date End Date Diamond Ponce MD [address] [place] [address] PCP - General Family Medicine 07/01/19 documented as of this encounter
--- OUTSIDE RECORDS SUMMARY | 2025-01-07 08:23 | XMS_ITS | Clinical Summary ---
Author Organization [employer] Address [address] [facility] 7t [place] [address] Care Team Providers Care Finishing Operator Name Role Phone Diamond Ponce MD [...] tablet by mouth Once per day. Active [place]-3 Fatty Acids (OMEGA 3 500 PO) 1 [...] 026 Active Blood Glucose Monitoring Suppl (FreeStyle Clifton Lite) w/Device kitIndications:T ype 2 diabetes mellitus [...] week. 120 mL 2 12/24/19 25 Active SUMAtriptan (Imitrex) 25 MG tablet Take 1 tablet (25 mg) by mouth 1 (one) time if needed for migraine for up to 9 doses. May repeat dose once in 2 hours if no relief. Do not exceed 2 doses in 24 hours. 9 tablet 01/07/20 25 Active acetaminophen (Tylenol) 500 MG tablet [...] 06/03/2023 Dyspnea on exertion 05/23/2023 Fractured dental orthodoxy with loss of materi al 04/02/2023 Encounter [...] organization. Date Type Department Care Team Description 01/06/2025 11:30 AM EDT Office Visit [facility] MEDICINE [address] [place] [phone] Michelle Leach NP 01/06/2025 Travel 01/05/2025 Telephone [facility] MEDICINE [address] [place] [phone] Diamond Ponce MD ER Follow-up 01/03/2025 1:40 PM EDT Office Visit [facility] WALK-IN CENTER [address] [place] [address] Daija Garrison MD Weakness of right upper extremity (Primary Dx) 01/03/2025 Orders Only [facility] External Provider, [facility] 01/03/2025 Telephone [facility] [address] [place] [address] Sofia Montero, RN Nurse Triage 01/03/2025 Travel 01/03/[address] [address] Diamond Ponce MD dec recall 12/21/2024 2:30 PM EDT Office Visit [address] [address] Diamond Ponce MD Essential hypertension (Primary Dx); Type 2 diabetes mellitus without complication, without long-term current use of insulin (CMS/HCC); Dementia with behavioral disturbance (CMS/HCC); Moderate major depression, single episode (CMS/HCC); Dietary counseling; Exercise counseling; Skin abrasion; Seborrheic dermatitis; Acute otitis media, unspecified otitis media type 12/21/2024 Travel 12/20/[address] [address] Diamond Ponce MD chart prep 12/13/2024 Patient Outreach [address] [address] Diamond Ponce MD Pre-visit Planning (SDOH screening completed on 06/07/2024) 12/07/2024 2:30 PM EDT Office Visit [facility] OPTOMETRY [address] [place] [address] Stuart, Xochilt, OD Diabetes type 2, no ocular involvement (CMS/HCC) (Primary Dx); Familial drusen of both eyes; Combined forms of age-related cataract of both eyes; Dry eyes; Amblyopia of left eye; Presbyopia of both eyes 12/07/2024 Travel 11/11/2024 Telephone [facility] [address] [place] [address] Diamond Ponce MD fyi 11/01/2024 Refill [facility] WALK-IN CENTER [address] [place] [address] Clyde Chase MD 10/29/2024 Refill [facility] MEDICINE [address] [place] [address] Diamond Ponce MD Essential hypertension 10/19/2024 Telephone [facility] MEDICINE [address] [place], [place] [phone] Diamond Ponce MD Appointment Request from Last 3 Months Immunizations Immunization Administration Dates Next Due Influenza High-dose Quadriva lent Preservative Free 01/03/2022,04/13/2020 Influenza Injectable Quadriv alant Preservative Free IIV4 MDCK 02/23/2021 Influenza injectable quadriv alent preservative free 03/13/2023,12/18/2016 Influenza, High Dose Seasona l, Preservative Free 04/19/2019,02/07/2014 Influenza, Split (incl. ulises fied surface antigen) 02/27/2012 Pfizer Covid-19 Vaccine 1205/25/2024(D eferred: Patient decision - Patient reports that [...] Mass Index 29.53 01/06/2025 11:47 AM EDT Plan of Treatment Upcoming Encounters Date Type Department Care Team (Late st Contact Info) Description 03/11/2025 2:30 PM EST Office Visit [facility] MEDICINE [address] [place] [address] Diamond Ponce MD [address] [place] [address] Health Maintenance Due Date Last Done Comments CT Colonography 1955 FIT 1955 Sigmoidoscopy 1955 Alcohol/Substance Use Screening 1966 Colonoscopy 06/17/2023 06/16/2013 Dental Oral Exam 07/05/2023 01/02/2023, 11/28/2020 Dental Prophylaxis 07/05/2023 01/02/2023, 12/12/2020 Dental X-Ray: Full Mouth 11/30/2023 11/28/2020 Dental X-Ray: Bitewings 01/04/2024 01/03/20 23, 08/24/2021, 11/28/2020, Additional history exists DTaP/Tdap/Td Vaccines (2 - Td or Tdap) 02/08/2024 02/07/2014 Depression Screening 05/22/2024 05/23/2023, 05/23/19 24 HPV/Cotest 11/01/2024 12/02/2018 Pap Smear 11/01/2024 Influenza [...] CONTRAST Routine 01/03/2025 4 :28 PM EDT POCT GLYCATED HEMOGLOBIN, TOTAL Routine 12/21/2024 2:43 PM EDT Type 2 diabetes mellitus without complication, without long-term current use of insulin ([facility]) POCT GLUCOSE Routine 12/21/2024 2:43 PM EDT [...] without long-term current use of insulin (CMS/HCC) Full PROPHYLAXIS - ADULT Routine 01/02/2023 3:00 [...] to Health Maintenance Results * XR Chest 1 View (01/04/2025 9:47 AM EDT) Anatomical Region Laterality Modality Chest Radiographic Nicky ging 01/04/2025 9:47 AM EDT Narrative 01/04/2025 9:48 AM EDT [address] [address] XRay Report Signed Patient: Eveline Novoa MR#: [id number] : 1955 Acct:[id number] Age/Sex: 69 / F ADM Date: 01/03/25 Loc: HO.ED Attending Dr: Ordering Physician: Mimi Carrillo Date of Service: 01/03/25 Procedure(s): XR chest 1V Accession Number(s): [id number] cc: Diamond Ponce MD; Mimi Carrillo Reason [...] signed by Stephon Frost DO in OV> 01/04/2548 DD/ 6 TD/TT: 01/04/25946 Java Technical Manager: Procedure Note Donotuseinterpreter, Image - 01/04/[address] [address] XRay Report Signed Patient: Eveline Novoa MR#: [id number] : 1955cct:[id number] Age/Sex: 69 / FADM Date: 01/03/25 Loc: HO.ED Attending Dr: Ordering Physician: Mimi Carrillo Date of Service: 01/03/25 Procedure(s): XR chest 1V Accession Number(s): [id number] cc: Diamond Ponce MD; Mimi Carrillo Reason [...] in OV> 01/04/25947 DD/ 6 TD/TT: 01/04/25946 Java Technical Manager: [facility] External Provider IMG XR PROCEDURES Final Result * CT Head w/o Contrast (01/03/2025 4:28 PM EDT) Anatomical Region Laterality Modality Head, Neck Computed Tomogra phy 01/03/2025 4:28 PM EDT Narrative 01/03/2025 4:30 PM EDT [address] [address] [address] Scan Report Signed Patient: Eveline Novoa MR#: [id number] : 1955 Acct:[id number] Age/Sex: 69 / F ADM Date: 01/03/25 Loc: HO.ED Attending Dr: Ordering Physician: Deo Hernandez MD Date of Service: 01/03/25 Procedure(s): CT head/brain wo IV con Accession Number(s): [id number] cc: Diamond Ponce MD; Deo Hernandez MD Report Number: [id number]: Total DLP = 563.00 mGy-cm Reason for Exam: right arm numbness CLINICAL HISTORY: right arm numbness CT head without contrast Comparison: CT/IN/SR - CT HEAD/BRAIN WO IV CON - [...] 01/03/25 1630 DD/ 1628 TD/TT: 01/03/25 1628 Java Technical Manager: Procedure Note Donotuseinterpreter, Image - 01/03/[address] [place] [address] [address] Scan Report Signed Patient: Eveline Novoa MR#: [id number] : 4Acct:[id number] Age/Sex: 69 / FADM Date: 01/03/25 Loc: HO.ED Attending Dr: Ordering Physician: Deo Hernandez MD Date of Service: 01/03/25 Procedure(s): CT head/brain wo IV con Accession Number(s): [id number] cc: Diamond Ponce MD; Deo Hernandez MD Report Number: [id number]: Total DLP = 563.00 mGy-cm Reason for Exam: right arm numbness CLINICAL HISTORY: right arm numbness CT head without contrast Comparison: CT/IN/SR - CT HEAD/BRAIN WO IV CON - [...] 01/03/25 1630 DD/ 1628 TD/TT: 01/03/25 1628 Java Technical Manager: [facility] External Provider IMG CT PROCEDURES Edited Result - Final * (ABNORMAL) POCT Hgb A1c (12/21/2024 2:43 PM EDT) Hemoglobin A1C 6.6(A) 4.0 - 5.7 % QC Media Lot # [id number] Lot# Expiration Date [id number] Blood 12/21/2024 2:43 PM EDT Diamond Lepe MD POINT OF CARE TEST EN TER/EDIT ORDERABLES Final Result * (ABNORMAL) POCT Glucose (12/21/2024 2:43 PM EDT) Glucose Blood, POC 266(A) 60 - 200 mg/dL QC Media Lot # [id number] Lot# Expiration Date 726 Blood Capillary blood specimen / Unknown 12/21/2024 2:43 PM EDT Diamond Lepe MD POINT OF CARE TEST EN TER/EDIT ORDERABLES Final Result * OCT, Retina - OU - Both Eyes (12/07/2024 2:30 PM EDT) Narrative Xochilt Davidson, OD - 12/13/2024 11:27 AM EDT Images [...] EDT Narrative 07/25/2024 2:35 PM EDT [facility] [place] [address] Mammography Report Signed Patient: Eveline Novoa MR#: [id number] : 1955 Acct:[id number] Age/Sex: 69 / F ADM Date: 07/19/24 Loc: HO.MAMMO Attending Dr: Diamond Lepe MD Ordering Physician: Diamond Ponce MD Results: 2Benign Findings Date of Service: 07/19/24 Follow Up: 1 Year From [facility] Mammogram Procedure(s): MM tomosynthesis screening BI Accession Number(s): [id number] cc: Diamond Ponce MD EXAMINATION: MM SCREENING [...] 07/25/24 1432 DD/ 1330 TD/TT: 07/19/24 1355 Java Technical Manager: Procedure Note Donotuseinterpreter, Image - 07/25/[facility] [address] [place] [address] Mammography Report Signed Patient: Eveline Novoa MR#: [id number] : 4Acct:[id number] Age/Sex: 69 / FADM Date: 07/19/24 Loc: HO.MAMMO Attending Dr: Diamond Lepe MD Ordering Physician: Diamond Ponce MDResults: 2Benign Findings Date of Service: 07/19/24Follow Up: 1 Year From Orig inal Mammogram Procedure(s): MM tomosynthesis screening BI Accession Number(s): [id number] cc: Diamond Ponce MD EXAMINATION: MM SCREENING [...] 07/25/24 1432 DD/ 1330 TD/TT: 07/19/24 1355 Java Technical Manager: Diamond Lepe MD IMG BI PROCEDURES [place] ta Result - Final * Cologuard?? colon cancer screening (06/28/2024 10:00 PM EDT) Cologuard Result Negative Negative 07/07/19 12:46 PM EDT [facility] (CLIA #:[id number]) Comment: NEGATIVE TEST RESULT. A negative Cologuard [...] Jordan. et al, N Engl J Med 2014;370(14):1927-7400) The normal value (reference range) for this assay is negative. COLOGUARD RE-SCREENING RECOMMENDATION: Periodic colorectal cancer screening is an important part of preventive healthcare for asymptomatic individuals at average risk for colorectal cancer. Following a negative Cologuard result, the [place] [employer] Society and U.S. Multi-Society Task Force screening guidelines recommend a Cologuard re-screening interval of 3 years. References: [place] [employer] Guideline for Colorectal Cancer Screening: https://www.cancer.org/cancer/cstzj-psytxv-alblbd/ibmtfvdzv-wltwbewgj-rnevvik/ac s-rec ommendations.html.; Robert PIRES, Tanisha DONALD, Ji [place], Colorectal Cancer Screening: Recommendations for Physicians and Patients from the U.S. Multi-Society Task Force on Colorectal Cancer Screening , Am J Gastroenterology 2017; 112:8527-7363. TEST DESCRIPTION: Composite algorithmic analysis of stool [...] (Amanda Sharif al, N Engl J Med 2014;370(14):1024-1149.) Cologuard may produce a false negative or false positive result (no colorectal cancer or precancerous polyp present at colonoscopy follow up). A negative Cologuard test result does not guarantee the absence of CRC or advanced adenoma (pre-cancer). The current Cologuard screening interval is every 3 years. ([place] [employer] Society and U.S. Multi-Society Task Force). Cologuard performance data in a 10,000 patient pivotal study using colonoscopy as the reference method can be accessed at the following location: www.[employer]/results. Additional description of the Cologuard test process, warnings and precautions can be found at www.IMGuestrd.com. Stool specimen (specimen) 06/28/2024 10:00 PM EDT 06/30/2024 1:20 PM EDT Diamond Lepe MD LAB MOLECULAR DIAGNOS TICS ORDERABLES Final Result [facility] (CLIA #:[id number]) [place] [address], [place] [phone] * Albumin, Random Urine W/Creatinine (03/03/2024 7:57 AM EST) Creatinine, Urine 57.95 mg/dL [facility] Microalbumin Urine <5.0 mg/L [facility] Microalbum Creatinine Ratio Ur TNP <30 ug/mg cr [facility] Comment:Unable to calculate albumin/creatinine ratio due to lowmicroalbumin or creatinine result. Urine (Urine, Random) 03/03/2024 7:57 AM EST 03/03/2024 11:16 AM EST Diamond Lepe MD LAB URINE ORDERABLES Final Result Performing Organization Address [facility] Co de Phone Number [facility] [address] [place] [phone] * Hepatitis C Antibody with Reflex to HCV, RNA, Quantitative, Real-Time PCR (03/03/2024 7:57 AM EST) Hepatitis C Antibody Nonreactive Nonreactive [facility] Comment:Antibodies to HCV no t detected; does not exclude early acuteHCV infection. Blood Venous blood specimen / Unknown 03/03/2024 7:57 AM EST 03/03/2024 11:18 AM EST Diamond Lepe MD LAB BLOOD ORDERABLES Final Result Performing Organization Address City/[facility] [address]/ZIP Co de Phone Number [facility] [address] [place] [phone] * (ABNORMAL) Lipid Panel, Standard (03/03/2024 7:57 AM EST) Triglycerides 73 <150 mg/dL [facility] Comment:Desirable Triglyceri de: less than 150 mg/dLBorderline High Triglyceride 150-199 mg/dLHigh Triglyceride: 200-499 mg/dLVery High Triglyceride: greater than or equal to 5OO mg/dL Cholesterol 242(H) <200 mg/dL [facility] Comment:Desirable Cholestero l: less than 200 mg/dLBorderline High Cholesterol: 200-239 mg/dLHigh Cholesterol: greater than 239 mg/dL LDL Cholesterol Calculated 167(H) <100 mg/dL [facility] Comment:Desirable LDL: less than 100 mg/dLNear Optimal/Above Optimal LDL: 110- 129 mg/dLBorderline High LDL: 130-159 mg/dLHigh LDL: 160-189 mg/dLVery High LDL: greater than or equal to 190 mg/dL HDL Cholesterol 61 >40 mg/dL [facility] Comment:Desirable HDL: great er than 40 mg/dL Note: This HDL assay may give artificially low results in patients with liver disease. Blood Venous blood specimen / Unknown 03/03/2024 7:57 AM EST 03/03/2024 11:18 AM EST Diamond Lepe MD LAB BLOOD ORDERABLES Final Result [facility] [address] [place] [phone] * (ABNORMAL) HPV mRNA E6/E7 (12/02/2018 3:30 PM EDT) HPV mRNA E6/E7 DETECTED (AA) NOT DETECTED [facility] Comment: This test was performed using the APTIMA(R) HPV Assay ([employer] This assay detects E6/E7 viral messenger RNA (mRNA) from 14 high-risk HPV types (16,18,31,33,35,39,45,51, 52,56,58,59,66,68). For additional information please refer to: http://education.[employer]/faq/WKC085l7 (This link is being provided for informational/ educational purposes only.) The analytical performance characteristics of this assay have been determined by [place]. The modifications have not been cleared or approved by the FDA. This assay has been validated pursuant to the CLIA regulations and is used for clinical purposes. Test Performed by [facility], [employer] [place], [address] [place] [address] Justyn Nettles M.D., Ph.D., Director of Laboratories , CLIA [id number] Please note: Effective 12/04/2015, HPV testing will be performed using the[employer]'s APTIMA test which targets mRNA. Detecting mRNA instead of DNA, as in older methods, offers significant improvements in specificity. 12/02/2018 3:30 PM EDT Leonarda Mancera CNM HISTORICAL/NON ORDERABLE LABS Final Result Performing Organization Address City/State/[facility] Co de Phone Number [facility] Formerly [facility], [facility] [address] * Colonoscopy (06/16/2013) Historical Provider MD HEALTH MAINTENANCE Final Result from Last 3 Months or Most Recently Relevant to Health Maintenance Insurance [facility] [employer]-TERM OPT[employer] (HMO D-SNP) [place] [id number] [facility] - [facility] Care Teams Finishing Operator Relationship Specialty Start Date End Date Diamond Ponce MD [address] [place] [phone] PCP - General Family Medicine 07/01/19
--- OUTSIDE RECORDS SUMMARY | 2025-01-07 08:24 | XMS_ITS | Encounter Summary ---
Author Organization [employer] Address [address] [facility] 7t [place] [address] Care Team Providers Care Communication Instructor Name Role Phone Diamodn Ponce MD Primary Care Provide r Encounter Details Date Type Department Care Team ([facility] st Contact Info) Description 09/06/2024 Orders Only [facility] MEDICINE [address] [place] [address] Michelle Leach NP [address] [place] [address] Left-sided chest wall pain (Primary Dx) Social [...] Description 03/11/2025 2:30 PM EST Office Visit [facility] MEDICINE [address] [place] [address] Diamond Ponce MD [address] [place] [address] documented as of this encounter Visit Diagnoses Diagnosis Left-sided chest wall pain- Primary Painful respiration documented in this encounter Additional Health Concerns Assessment Noted Time PHQ-9 Depression Total Score: 0 05/23/19 24 1:38 PM EST documented as of this encounter Care Teams Communication Instructor Relationship Specialty Start Date End Date Diamond Ponce MD [address] [place] [address] PCP - General Family Medicine 07/01/19 documented as of this encounter
--- OUTSIDE RECORDS SUMMARY | 2025-01-07 08:24 | XMS_ITS | Encounter Summary ---
Author Organization [employer] Address [address] [facility] 7t [place] [address] Care Team Providers Care Jd Edwards Developer Name Role Phone Diamond Ponce MD Primary Care Provide r Encounter Details Date Type Department Care Team (Latest Contact Info) Description 12/12/2020 Abstract [facility] CONVERSIONS Dental, Provider, DDS Social [...] Description 03/11/2025 2:30 PM EST Office Visit [facility] MEDICINE [address] [place] [address] Diamond Ponce MD [address] [place] [address] documented as of this encounter Visit Diagnoses Not on filedocumented in this encounter Care Teams Jd Edwards Developer Relationship Specialty Start Date End Date Diamond Ponce MD [address] [place] [address] PCP - General Family Medicine 07/01/19 documented as of this encounter
--- OUTSIDE RECORDS SUMMARY | 2025-01-07 08:24 | XMS_ITS | Encounter Summary ---
Author Organization [employer] Address [address] [place] [address] [address] [place] [address] Care Team Providers Care Director Employee Communications Name Role Phone Diamond Ponce MD Primary Care Provide r Encounter Details Date Type Department Care Team (Late Contact Info) Description 03/29/2022 [facility] Health Information Management [address] [place] [address] Diamond Ponce MD [address] [place] [address] Social History Tobacco Use Types Packs/Day Years [...] 2:30 PM EST Office Visit [facility] MEDICINE [address] [place], [place] [phone] Diamond Ponce MD [address] [place], [place] [phone] documented as of this encounter Visit Diagnoses Not on filedocumented in this encounter Care Teams Director Employee Communications Relationship Specialty Start Date End Date Diamond Ponce MD [address] [place] [phone] PCP - General Family Medicine 07/01/19 documented as of this encounter
[2025-01-07 12:23] LABS: Alanine Aminotransferase 16 U/L (0-31); Albumin Level 4.1 g/dL (3.5-5.0); Alkaline Phosphatase 65 U/L (39-117); Anion Gap 10 (12-20); Aspartate Amino Transferase 27 U/L (5-31); Blood Urea Nitrogen 16 mg/dL (9-16); Calcium 8.6 mg/dL (8.4-10.2); Carbon Dioxide 26 mmol/L (22-29); Chloride 112 mmol/L (96-108); Cholesterol 264 mg/dL (<200); Estimated Glomerular Filt Rate > 60; HDL Cholesterol 56 mg/dL (>40); Potassium 4.4 mmol/L (3.3-5.1); Sodium 144 mmol/L (135-145); Total Protein 6.7 g/dL (6.5-8.0); Triglycerides 83 mg/dL (<150)
[2025-01-07 14:02] LABS: Microalbum/Creatinine Ratio Ur 16.4 ug/mg cr (<30)
[2025-01-07 15:18] LABS: Folate 8.4 ng/mL (> or = 4.0); Vitamin B12 747 pg/mL (200-900)
[2025-01-08 09:21] LABS: HIV Num 1 0.04 S/CO (0.00-0.99)
[2025-01-08 09:25] LABS: Syphilis Screen Nonreactive (Nonreactive)
[2025-01-08 09:43] LABS: Lyme Abs Screen <0.90 index
== END 2025-01-07 08:05 | disposition home or self-care (01) ==
LOC: HO.HHCL 08:04
PROVIDERS: Nurse Practitioner; PCP Internal Medicine; Visit Provider Internal Medicine
DX: E11.9 Type 2 diabetes mellitus without complications (principal); R20.0 Anesthesia of skin; R20.2 Paresthesia of skin
CPT/HCPCS: 36415; 80053; 80061; 82043; 82570; 82607; 82746; 86617; 86618; 86780; 87389

== ENCOUNTER 2025-02-14 09:00 | Outpatient (AMB) | payer OTHER, SELFPAY ==
--- NOTE | 2025-02-14 09:32 | A.OFFVIS_ITS ---
Vital Signs 02/14/25 09:48 Height 4 ft 11 in Weight 145 lb 8.081 oz BMI 29.4 BP 128/68 Blood Pressure Location Lt brachial Position Sitting Pulse 82 Pulse Source Pulse Oximeter Pulse Oximetry (%) 99 Oxygen Delivery Method Room Air Intake Visit Reasons: Pulmonary Edema Perfect Binder Setter Required: Yes Perfect Binder Setter Services: Perfect Binder Setter Offered & Declined Perfect Binder Setter Name: MD speaks botswanan Accompanied by: Self / Same As Patient Allergies tramadol Allergy (Severe, Verified 02/14/25 09:49) Hallucinations morphine Allergy (Intermediate, Verified 02/14/25 09:49) Hallucinations HPI Comments Details: The patient is here for pulmonary evaluation for abnormal CT scan. The patient is a 70 year old woman who was in her usual state health until back in the spring. The patient was having some difficulty with the breathing shortness of breath cough in addition to abdominal discomfort. Part of the workup included a CT scan of the chest back in July 2024 which I personally reviewed. The patient has evidence of ground-glass opacity suggesting pneumonitis. Apparently she did have a viral syndrome during that time. She also had some underlying pulmonary nodules some calcified and some noncalcified pulmonary nodules. The nodules measuring between 3-4 mm in size. Therefore, she was referred to Pulmonary. Right now she does feel well. Denies any shortness of breath cough or denies any significant exposures. She denies any arthralgias or any connective tissue disease. On exam she does have some fine crackles bilaterally suggesting the possibility of interstitial lung disease. For that reason we are going to have her get blood work and pulmonary function studies. Will review those results. Depending on the findings will decide went to the CAT scan. She will definitely the CAT scan by July of 2025 but we may want to do that earlier especially if her blood work is abnormal in order if she is symptomatic. 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 Review of Systems Const Details: glasses Denies fatigue, Denies fever(s), Denies night sweats, Denies poor appetite and Denies weight loss Eyes Reports dry eyes ENT Reports Normal hearing present, Denies throat swelling and Denies tongue swelling Card Reports no additional complaints and Reports dyspnea on exertion Resp Reports dyspnea on exertion GI Reports abdominal pain Reports flank pain Musc Reports back pain and Reports myalgias Skin/Breast Denies pruritus, Denies lesions, Denies rash and Denies jaundice Neuro Reports Normal hearing present and Denies Abnormal speech present Endo Denies fatigue Aller/Immun Denies throat swelling and Denies tongue swelling Physical Exam Vital Signs: Last Vital Signs Pulse 82 02/14/25 09:48 BP 128/68 02/14/25 09:48 Pulse Ox 99 02/14/25 09:48 Oxygen Delivery Method Room Air 02/14/25 09:48 BMI result Body Mass Index 29.4 Const General: cooperative and no acute distress Orientation/consciousness: oriented to person, oriented to place and oriented to time HEENT Head: Yes normocephalic and Yes atraumatic Eyes General: appearance normal, both eyes and all related structures Pupils: Equal, round and reactive pupils present Neck Neck: Yes normal visual inspection and Yes no lymphadenopathy Resp Effort & Inspection: normal respiratory effort Auscultation: rales bilateral at the base Cardio Rate: regular rate Rhythm: regular rhythm GI Palpation (GI): Soft to palpation Skin General skin exam: no jaundice Neuro General: oriented to person, oriented to place and oriented to time Cranial nerves: Yes Equal, round and reactive pupils present and Yes Normal hearing present Speech: No Abnormal speech present Extrem General: Yes normal to inspection, No clubbing, No cyanosis and No edema Psych Appearance: grossly normal Assessment & Plan Assessment & Plan (1) Pneumonitis: Code(s): J98.4 - Other disorders of lung Category: Medical (2) Chest crackles: Code(s): R09.89 - Other specified symptoms and signs involving the circulatory and respiratory systems Category: Medical (3) Pulmonary nodules: Comment: both calcified and non-calcified nodules Code(s): R91.8 - Other nonspecific abnormal finding of lung field Category: Medical Plan Bloodwork PFTs Will need to repeat CT chest 07/2025 or earlier if abnormal or progressive findings F/U 2-3 months Orders: Orders MARILYN Reflex Titer and Pattern Today J98.4 - Other disorders of lung Hypersensitive Pneumonitis Prf Today J98.4 - Other disorders of lung, R91.8 - Other nonspecific abnormal finding of lung field Complete Blood Count Auto Diff Today J98.4 - Other disorders of lung Immunoglobulin E Today J98.4 - Other disorders of lung Cyclic Citrullinated Peptide Today J98.4 - Other disorders of lung Erythrocyte Sedimentation Rate Today J98.4 - Other disorders of lung Sjogren's Antibodies Today J98.4 - Other disorders of lung PFT pulmonary function test Today J98.4 - Other disorders of lung CT chest wo IV con 07/21/25 R91.8 - Other nonspecific abnormal finding of lung field Coding Level of Care Code New Pt Level 4 (63975) Diagnoses Pneumonitis J98.4 Chest crackles R09.89 Pulmonary nodules R91.8 Time Spent (min) 40
--- OUTSIDE RECORDS SUMMARY | 2025-02-14 09:46 | XMS_ITS | Continuity of Care Document ---
Author Organization [employer] [facility], [facility] Address [address] [place] [address] Care Team Providers Care Vacuum Caster Name Role Phone HIM CCA OTHER ROCKY SMITH Primary Care Provider [phone] Assessment Encounter Date Assessment Date Assessment LastModified by Organization Details LastModified Time 11/17/2024 11/17/2024 I provided real -time medical direction via phone for this encounter and was available for additional phone-based assistance as needed. I have reviewed and agree with the Assessment and Plan as documented by the Charter Coordinator. Patient given the opportunity to ask questions. Our service contacted for an assessment of: left arm and ? leg numbness As per above, patient calls for eval for above symptoms. Denied weakness. Was told to the ED for ? stroke. She thinks they are related to hyperglycemia. Has DM but has not checked her BG in 8 days. Denies change in speech. Per batteryman on the scene, VSS, AF Please read the batteryman note for their exam findings. Patient stated she developed vertigo the minute the medic arrived and then wanted to be evaluated for that. Checked BG. No orthostasis, No concerning signs or symptoms of a stroke. Impression: Numbness - was transient as symptoms resolved by the time the medic arrived and was not present anymore. Additionally, the patient states she was hyperventilating at the time Dizziness of too short of a duration to evaluate. Red flags discussed. Low threshold to present to the ED. Allergies: Reviewed PCP f/u: We discussed the diagnostic uncertainty of home visits and the risk associated with this. In this case, the patient and I felt this to be an acceptable and reasonable amount of risk given the benefit of avoiding an ED visit. We discussed the need to seek care urgently/emergentl y in the setting of any new or worsening serious symptoms, particularly fever chills lightheadedness altered mental status [email or web address] Not available 11/17/2024 19:06:29 Plan of Treatment Reminders Order Date Submit Date Provider Last Modified By Organization Details Last Modified Time Details Appointments None recorde d. Lab glucose , fingers tick, blood 025 11/18/19 25 [facility], [address] [place] [address], [id number] 5 16:42:09 Referral None recorde d. Procedures None recorde d. Surgeries None recorde d. Imaging None recorde d. Medication Orders None recorde d. Patient TargetsNo targets recorded. Patient InstructionsNo instructions recorded. Reason for Referral None Reported. Results Created Date Observation Date Name Description Value Unit Range Abnormal Flag Note LastModifiedBy Organization Detail LastModifiedTime Result Notes None recorded. Medical Equipment None Reported. Allergies Allergen ID Allergen Name Allergen Category Reaction Reaction Severity Criticality Documentation Date Start Date Code Code System Note Provider Name and Address Organization Details Recorded Time 27637 morphine medicatio n Not available Not available Not available 06/24/2024 7052 RxNorm Not Available [employer] - production 5 10:43:27 43584 tramadol medicatio n Not available Not available Not available 06/24/2024 14588 RxNorm Not Available [facility] - production 5 10:43:27 Medications Name Sig Start Date Stop [...] t Available Vitals Date Recorded Respiratory rate Body height Heart rate Oxygen saturation Body weight Body temperature Systolic And Diastolic Provider Name and Address Organization Details Last Updated DateTime 5 14 /min 157.48 cm 61 /min 98 % 45919.8 g 98 [degF] 128/72 mm[Hg] Not Available [facility] - production 14:47:51 Social History None recorded. Functional Status None recorded. Mental Status None recorded. Family History Nothing Reported. Medical History No medical history recorded. Gynecological HistoryNo gynecological history recorded. Obstetrics History GPAL:G 0 P 0 0 0 0 Past Encounters Encounter ID Performer Location Encounter Start Date Encounter Closed Date Diagnosis/Indication Diagnosis SNOMED-CT Code Diagnosis ICD10 Code Diagnosis IMO Codes Diagnosis Note [id number] Natacha Kline MD [facility] ED Medical [address] [address] 11/17/2024 14:44:37 11/17/2024 23:18:05 Numbness of upper limb 615232642 R20.0 043502 Health Concerns Section Related Observation LastModified by Organization Detai ls LastModified Time None Recorded Concern Status LastModified by Organization Details LastModified Time None Recorded Payers Encounter Date Sequence Insurance Name Policy Number Policy Bae Covered Member ID Bae Member ID Guarantor Name 11/17/2024 1 [facility] - DOS ON OR AFTER 2022 - DUAL ELIGIBLE - NURSING HOME OPTIONS AND ONE CARE (MEDICARE REPLACEMENT/AD VANTAGE - HMO) Eveline Herrera [id number] Eveline Herrera Notes Date Note Type Note Provider Name and Address Organization Details Recorded Time 11/17/2024 text/html [facility] Nurse Triage Notes (Cecy Rios): Reason For Request: arm and leg numbness Denies: Worst Headache of life New onset of vision loss Sudden onset -unilateral weakness/gait disturbance Fall with head strike and altered LOC New onset of Slurred speech or difficulty finding words Sudden Mental status changes Head pain with fever chills and neck pain Seizure activity Head pain not relieved by medication greater than 8 hours Head pain greater than 8 hours -unrelated to falls or injury Head pain with nausea vomiting Dizziness with positional change Sensitive to light Chief Complaints: Weakness PMH: Osteoporosis, Diabetes Mellitus Type 2 PMH Reviewed at 11/17/2024 - 13:42 Allergies Reviewed at 11/17/2024 - 13:42 Comments: 69 y.o female 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 Patient calling for numbness on her hands, legs, and arms. She described the feeling as numbness and cramping. The feeling is present in the right arm and both legs. She has never had this before. She denies any changes in her speech, swallow, face. Pt was explained that they may recommend going to the ER for imaging to rule out CVA , pt wanted the visit first to determine if it was a result of hyperglycemia She denies any vision changes or headaches. She denies weakness but stated that it is numb. She is not on a diuretic. She does have diabetes, but has not taken her blood sugar , which is recommended, because her machine is broken. She does not have any increased thirst or urination. I provided information on the mobile health provider response time and advised the patient and/or caregiver to monitor reported signs and symptoms. I discussed the warning signs of when to seek emergency care. Charter Coordinator Organization Information for Walter Barbour Business Legal Name: [facility] Address: [address] [place] [address], [place] [address], Mold Puller: Jac BURRELL No.: [id number] Charter Coordinator POC Test Results from Walter Barbour [place] Blood Glucose Measurement (14:50:30) Blood Glucose: 240mg/dL ...................... ...................... ...................... ...................... ...................... ...................... ......... Charter Coordinator Note From Walter Barbour: Patient alert and oriented, seated on chair. Patient complains of lightheadedness. Patient reports she had numbness, tingling earlier while out. Patient reports she was hyperventilating at the time. Patient reports that happens to her from time to time. Numbness, tingling weakness have subsided since she returned to her home. Patient reports lightheadedness and some vertigo began at the same time this visit began. Patient denies nausea, vomiting, diarrhea, weakness, numbness, falls, trauma, or any other pain or complaints. Patient, pink, warm, dry, stroke scale negative, positive full sentences, negative increased work of breathing, abdomen, soft, nontender, extremities unremarkable no edema noted. Patient advised to follow up with PCP. Red flags patient education discussed. Patient demonstrates understanding of care and plan. [facility] Lab Orders: glucose, fingerstick, blood: Performed ...................... ...................... ...................... ...................... ...................... ...................... ......... [facility] Consulted: Natacha Kline ...................... ...................... ...................... ...................... ...................... ...................... ......... Disposition: Fulfilled Natacha Kline MD [address] [place] [address],[address], [place], [address], [employer] 11/17/2024 19:06:37 OBGyn Episode No OBEpisode recorded.
--- OUTSIDE RECORDS SUMMARY | 2025-02-14 09:46 | XMS_ITS | Data Portability ---
Author Organization [place] Address [address] [place] [address] Care Team Providers Care Bioinformatics Specialist Name Role Phone HIM CCA OTHER ROCKY SMITH Primary Care Provider Assessment Encounter Date Assessment Date Assessment LastModified by Organization Details LastModified Time 06/24/2024 06/24/2024 I have reviewed and agree with the assessment and plan as documented by the slab polisher. I provided real time medical direction for this encounter and was immediately available to provide additional phone based assistance as needed. History as noted by slab polisher. Pt with history of chronic pain, dementia, HTN, HLD, DM2, LBP w/sciatica. Pt speaks only egyptian, history and evaluation done with slab polisher with help of textiles sales representative. Recent urgent care visit note from [...] prescribed, per the note. Pt not on anticoagulation. Today, pt is reporting persistent pain. No [...] pain or any new symptoms such as weakness/numbness in her legs or any hematuria. [email or web address] Not available 06/24/2024 14:46:49 11/17/2024 11/17/2024 I provided real -time medical direction via phone for this encounter and was available for additional phone-based assistance as needed. I have reviewed and agree with the Assessment and Plan as documented by the Sailboat Captain. Patient given the opportunity to ask questions. Our service contacted for an assessment of: left arm and ? leg numbness As per above, patient calls for eval for above symptoms. Denied weakness. Was told to the ED for ? stroke. She thinks they are related to hyperglycemia. Has DM but has not checked her BG in 8 days. Denies change in speech. Per slab polisher on the scene, VSS, AF Please read the slab polisher note for their exam findings. Patient stated [...] particularly fever chills lightheadedness altered mental status [email or web address] Not available 11/17/2024 19:06:29 Plan of Treatment Reminders Order Date Submit Date Provider Last Modified By Organization Details Last Modified Time Details Appointments None recorded. Lab glucose, fingerstick , blood 2024 025 [facility], [address] [place] [address], [id number] 16:42:09 Referral None recorded. Procedures None recorded. Surgeries None recorded. Imaging None recorded. Medication Orders ibuprofen 600 mg tablet 2024 025 [facility], [address] [place] [address], [id number], 10:34:32 lidocaine 4 % topical patch 2024 025 [facility], [address] [place] [address], [phone], 15:49:38 ketorolac 60 mg/2 mL intramuscul ar [...] Name and Address Organization Details Recorded Time 54364 morphine medicatio n Not available Not available Not available 06/24/2024 7052 RxNorm Not Available [facility] - production 10:43:27 57293 tramadol medicatio n Not available Not available Not available 06/24/2024 23183 RxNorm Not Available [facility] - production 10:43:27 [...] Vitals Date Recorded Respiratory rate Oxygen saturation Heart rate Body temperature Systolic And Diastolic Provider Name and Address Organization Details Last Updated DateTime 5 18 /min 99 % 85 /min 98 [degF] 123/78 mm[Hg] Not Available [facility] - production 14:19:27 Date Recorded Respiratory rate Body height Heart rate Oxygen saturation Body weight Body temperature Systolic And Diastolic Provider Name and Address Organization Details Last Updated DateTime 5 14 /min 157.48 cm 61 /min 98 % 02119.8 g 98 [degF] 128/72 mm[Hg] Not Available [...] ICD10 Code Diagnosis IMO Codes Diagnosis Note [id number] Efren Johnston MD Main - [facility] [address] [place] [phone] 06/24/2024 14:19:25 06/24/2024 15:40:43 Closed fracture lumbar vertebra [id number] S32.008D [id number] Natacha Kline MD [facility] [address] [address] 11/17/2024 14:44:37 11/17/2024 23:18:05 Numbness of upper limb 040031683 R20.0 833860 Health Concerns Section Related Observation LastModified by Organization Detai ls LastModified Time None Recorded Concern Status LastModified by Organization Details LastModified Time None Recorded Advance Directives Directive None Recorded Payers Insurance Date Sequence Insurance Name Policy Number Policy Bae Covered Member ID Bae Member ID Guarantor Name 11/17/2024 1 [facility] - DOS ON OR AFTER 2022 - DUAL ELIGIBLE - [facility] OPTIONS AND ONE CARE (MEDICARE REPLACEMENT/AD VANTAGE - HMO) Eveline Herrera [id number] Eveline Herrera Notes Date Note Type Note Provider Name and Address Organization Details Recorded Time 06/24/2024 text/html ROS as noted in the HPI This was a supervised home visit with slab polisher Rishi Heard. HPI: She fell on 06/21 [...] care. She is not on blood thinners. ...................... ...................... ...................... ...................... ...................... ...................... ......... [facility] Nurse Triage Notes (Cecy Rios): Reason For Request: Pain in her back Chief Complaints: Back Pain PMH: Osteoporosis, Diabetes Mellitus Type 2 PMH Reviewed at 06/24/2024 - 10:43 Allergies Reviewed at 06/24/2024 - 10:43 ...................... ...................... ...................... ...................... ...................... ...................... ......... Sailboat Captain Note From Rishi Heard: SC6 dispatched to [...] 15. Lung sounds clear in all morales. [facility] noted patient is Guyanese speaking only and daughter translated for [facility]. Patient reports that she had [...] urinating. Patient vital signs obtained as noted. [facility] consulted, provided orders for 30mg Toradol IM and advised that he would send prescription for Ibuprofen and Lidocaine patch to patient preferred pharmacy. 30mg Toradol IM administered in left deltoid without incident, patient rights verified. Red flags discussed with patient and advised to call 911 if condition worsens. SC6 clear. [facility] Medication Orders: ketorolac 60 mg/2 mL intramuscular solution: Administered ...................... ...................... ...................... ...................... ...................... ...................... ......... [facility] Consulted: Efren Johnston ...................... ...................... ...................... ...................... ...................... ...................... ......... 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 Patient calling for numbness on her hands, [...] signs of when to seek emergency care. Sailboat Captain Organization Information for Walter Barbour Business Legal Name: [facility] Address: [address] [place], [place] [id number], Mail Distributor: Jac Westfall MD [facility] No.: [id number] Sailboat Captain POC Test Results from Walter Barbour Blood Glucose Measurement (14:50:30) Blood Glucose: 240mg/dL ...................... ...................... ...................... ...................... ...................... ...................... ......... Sailboat Captain Note From Walter Barbour: Patient alert and [...] Patient demonstrates understanding of care and plan. [facility] Lab Orders: glucose, fingerstick, blood: Performed ...................... ...................... ...................... ...................... ...................... ...................... ......... [facility] Consulted: Natacha Kline ...................... ...................... ...................... ...................... ...................... ...................... ......... Disposition: Fulfilled Natacha Kline MD [address] [facility],[address], [place], [phone], [employer] 11/17/2024 19:06:37 OBGyn Episode No OBEpisode recorded.
[2025-02-14 09:48] VITALS: BP 128/68; PULSE 82; O2SAT 99; BMI 29.4
== END 2025-02-14 10:13 | disposition home or self-care (01) ==
LOC: HO.HPS 09:01
PROVIDERS: PCP Internal Medicine; Referring Provider Registered Nurse; Visit Provider Hospitalist
DX: J98.4 Other disorders of lung (principal); R09.89 Other specified symptoms and signs involving the circulatory and respiratory systems; R91.8 Other nonspecific abnormal finding of lung field
CPT/HCPCS: 99204

== ENCOUNTER → 2025-02-14 09:00 | Outpatient (BNVA) | payer OTHER, SELFPAY | PROVIDERS: PCP Internal Medicine; Referring Provider Registered Nurse; Visit Provider Hospitalist | DX: J98.4 Other disorders of lung (principal); R09.89 Other specified symptoms and signs involving the circulatory and respiratory systems; R91.8 Other nonspecific abnormal finding of lung field | CPT/HCPCS: 99202 ==

== ENCOUNTER 2025-03-21 10:33 | Outpatient (REF) | payer OTHER, SELFPAY ==
--- NOTE | ~2025-03-21 | XR_ITS ---
EXAMINATION: XR CERVICAL SPINE CLINICAL INFORMATION: PAIN COMPARISON: 07/24/2017. CT C-spine 06/21/2024. TECHNIQUE: 3 views of the cervical spine were obtained. FINDINGS: No significant scoliosis. There is a normal lordosis. No evidence of fracture, compression deformity, or suspicious bone lesion. Craniocervical junction and C1-2 articulation are intact and aligned. There is a 2 mm degenerative appearing retrolisthesis of C3 on C4. Alignment is otherwise anatomic. Mild to moderate disc degeneration present C3-4, as well as C5-6. Lesser changes at C6-7. Normal facet alignment bilaterally with mild multilevel degenerative facet and uncinate changes. No prevertebral or paravertebral soft tissue abnormality. Lung apices appear clear. XR/XR cervical spine 3V IMPRESSION: 1. No acute cervical spine abnormality. 2. Mild degenerative spondylosis of the cervical spine, most notable C3-4 and C5-6. Grossly no change from 07/24/2017. Electronically signed by: Charles Hilliard MD 03/21/2025 11:16 AM KAJAL
--- OUTSIDE RECORDS SUMMARY | 2025-03-21 09:40 | XMS_ITS | Encounter Summary ---
Author Organization [employer] Address [address] [facility] [address] [facility] [address] [place] [address] Care Team Providers Care Hay Chopper Name Role Phone Diamond Ponce MD Primary Care Provide r Reason for Visit * Reason Comments Headache Encounter Details Date Type Department Care Team ([facility] st Contact Info) Description 03/21/2025 9:40 AM EST Office Visit [facility] [address] [place], [place] [phone] Fall (on)(from) sidewalk curb, initial encounter (Primary Dx) Social History Tobacco Use Types [...] Answer Date Recorded Patient Health Questionnaire-9 Score 1 03/11/2025 Patient Health Questionnaire-9 Score 1 03/11/2025 Last PHQ-9: Questionnaire Data Not on file 1 05/12/2024 Housing Stability Answer Date Recorded What is [...] Date Recorded Patient Health Questionnaire-2 Score 0 03/11/2025 Internet Access Answer Date Recorded Internet Access [...] Sign Reading Time Taken Comments Blood Pressure 141/80 03/21/2025 9:58 AM EST Pulse 80 03/21/2025 9:58 AM EST Temperature 37.1 C (98.8 F) 03/21/2025 9:58 AM EST Respiratory Rate 20 03/21/2025 9:58 AM EST Oxygen Saturation 95% 03/21/2025 9:58 AM EST Inhaled Oxygen Concentration - - Weight 68 kg (150 lb) 03/21/2025 9:58 AM EST Height 149.9 cm (4' 11 ) 03/21/2025 9:58 AM EST Body Mass Index 30.3 03/21/2025 9:58 AM EST documented in this encounter Plan of Treatment Upcoming Encounters Date Type Department Care Team (Late st Contact Info) Description 06/09/2025 1:45 PM EDT Office Visit [facility] [address] [place] [address] Diamond Ponce MD [address] [place] [address] Scheduled Orders Name Type Priority Associated Diagnoses Orde r Schedule XR Cervical Spine 2-3 Views Imaging Routine Fall (on)(from) sidewalk curb, initial encounter Expected: 03/21/2025, Expires: 03/21/2026 documented as of this encounter Goals Goal Patient Goal Type Associated Problems Recent Progress Patient-Stated? Author Help patients manage their type 2 diabetes Care Plan Help patients manage their type 2 diabetes No Michelle Leach NP Patient has chronic kidney disease Care Plan Patient has chronic kidney disease No Michelle Leach NP Patient has chronic kidney disease Care Plan Patient has chronic kidney disease No Michelle Leach NP Patient has chronic kidney disease Care Plan Patient has chronic kidney disease No Oxana Marinelli RN Patient has chronic kidney disease Care Plan Patient has chronic kidney disease No Oxana Marinelli RN Patient has chronic kidney disease Care Plan Patient has chronic kidney disease No Tien Bragg MA Patient has chronic kidney disease Care Plan Patient has chronic kidney disease No Ilda Quiles Patient has chronic kidney disease Care Plan Patient has chronic kidney disease No Melba Aponte [place] Patient has chronic kidney disease Care Plan Patient has chronic kidney disease No Poonam Brown Patient has chronic kidney disease Care Plan Patient has chronic kidney disease No Poonam Brown Patient has chronic kidney disease Care Plan Patient has chronic kidney disease No Liudmila Parson [place] documented as of this encounter Visit Diagnoses Diagnosis Fall (on)(from) cassie setel, initial encounter- Primary documented in this encounter Additional Health Concerns Active Problems Noted Date Diagnosed Date Help patients manage their type 2 diabetes 02/17 Patient has chronic kidney disease 02/17/2025 Patient has chronic kidney disease 02/19/2025 Patient has chronic kidney disease 02/23/2025 Patient has chronic kidney disease 02/23/2025 Patient has chronic kidney disease 02/24/2025 Patient has chronic kidney disease 03/02/2025 Patient has chronic kidney disease 03/11/2025 Patient has chronic kidney disease 03/14/2025 Patient has chronic kidney disease 03/14/2025 Patient has chronic kidney disease 03/21/2025 Assessment Noted Time PHQ-9 Depression Total Score: 1 03/11/20 25 2:29 PM EST documented as of this encounter Care Teams Hay Chopper Relationship Specialty Start Date End Date Diamond Ponce MD [address] [place] [id number] PCP - General Family Medicine 07/01/19 documented as of this encounter
--- OUTSIDE RECORDS SUMMARY | 2025-03-21 12:01 | XMS_ITS | Encounter Summary ---
Author Organization [employer] Address [address] [facility] [address] [place] [address] Care Team Providers Care Esl Tutor Name Role Phone Diamond Ponce MD Primary Care Provide r Reason for Visit * Reason Onset Date Comments triage 04/23/2022 Encounter Details Date Type Department Care Team ([facility] st Contact Info) Description 04/23/2022 Telephone [facility] [address] [place] [address] Diamond Ponce MD [address] [place] [address] triage Social History Tobacco Use Types Packs/Day [...] caller The caller accepted this outcome speaks french documented in this encounter Plan of Treatment Upcoming Encounters Date Type Department Care Team (Late st Contact Info) Description 06/09/2025 1:45 PM EDT Office Visit [facility] [address] [place] [address] Diamond Ponce MD [address] [place] [address] documented as of this encounter Visit Diagnoses Not on filedocumented in this encounter Care Teams Esl Tutor Relationship Specialty Start Date End Date Diamond Ponce MD [address] [place] [address] PCP - General Family Medicine 07/01/19 documented as of this encounter
--- OUTSIDE RECORDS SUMMARY | 2025-03-21 12:01 | XMS_ITS | Encounter Summary ---
Author Organization [employer] Address [address] [facility] 7[address] [place] [address] Care Team Providers Care Patient Services Manager Name Role Phone Diamond Ponce MD Primary Care Provide r Reason for Visit * Reason Onset Date Comments Med Refill 04/23/2022 Encounter Details Date Type Department Care Team ([facility] st Contact Info) Description 04/23/2022 Telephone [facility] [address] [place] [address] Diamond Ponce MD [address] [place] [address] Med Refill Social History Tobacco Use Types [...] Description 06/09/2025 1:45 PM EDT Office Visit [facility] [address] [place], [place] [phone] Diamond Ponce MD [address] [place] [address] documented as of this encounter Visit Diagnoses Not on filedocumented in this encounter Care Teams Patient Services Manager Relationship Specialty Start Date End Date Diamond Ponce MD [address] [place] [address] PCP - General Family Medicine 07/01/19 documented as of this encounter
--- OUTSIDE RECORDS SUMMARY | 2025-03-21 12:02 | XMS_ITS | Encounter Summary ---
Author Organization [employer] Address [address] [facility] [address] [place] [address] Care Team Providers Care Line Up Machine Operator Name Role Phone Diamond Ponce MD Primary Care Provide r Encounter Details Date Type Department Care Team ([facility] st Contact Info) Description 09/06/2024 Orders Only [facility] [address] [place] [address] Michelle Leach NP [address] [place] [address] Left-sided chest wall pain (Primary Dx) Social [...] Description 06/09/2025 1:45 PM EDT Office Visit [facility] [address] [place] [phone] Diamond Ponce MD [address] [place] [address] documented as of this encounter Visit Diagnoses Diagnosis Left-sided chest wall pain- Primary Painful respiration documented in this encounter Additional Health Concerns Assessment Noted Time PHQ-9 Depression Total Score: 0 05/23/19 24 1:38 PM EST documented as of this encounter Care Teams Line Up Machine Operator Relationship Specialty Start Date End Date Diamond Ponce MD [address] [place] [address] PCP - General Family Medicine 07/01/19 documented as of this encounter
--- OUTSIDE RECORDS SUMMARY | 2025-03-21 12:02 | XMS_ITS | Encounter Summary ---
Author Organization [employer] Address [address] [facility] [address] [place] [address] Care Team Providers Care Daily Release And Dupe Printer Name Role Phone Diamond Ponce MD Primary Care Provide r Encounter Details Date Type Department Care Team (Latest Contact Info) Description 12/12/2020 Abstract [facility] CONVERSIONS Dental, Provider, DDS Social [...] Description 06/09/2025 1:45 PM EDT Office Visit [facility] [address] [place] [address] Diamond Ponce MD [address] [place] [address] documented as of this encounter Visit Diagnoses Not on filedocumented in this encounter Care Teams Daily Release And Dupe Printer Relationship Specialty Start Date End Date Diamond Ponce MD [address] [place] [address] PCP - General Family Medicine 07/01/19 documented as of this encounter
--- OUTSIDE RECORDS SUMMARY | 2025-03-21 12:02 | XMS_ITS | Clinical Summary ---
Author Organization [employer] Address [address] [facility] [address] [place] [address] Care Team Providers [employer] Representative Name Role Phone Diamond Ponce MD [...] (twelve) hours. 100 each 2 023 Active Linzess 290 MCG capsule TAKE 1 CAPSULE BY MOUTH EVERY MORNING WITH A FULL GLASS OF WATER 024 Active docusate sodium (Colace) 100 MG capsuleIndicati ons:Constipatio n, unspecified constipation type Take 1 capsule (100 mg) by mouth at bedtime. 90 capsule 1 024 Active Simethicone Ultra Strength 180 MG capsuleIndicati ons:Pain of upper abdomen TAKE 1 CAPSULE BY MOUTH TWICE DAILY AFTER MEALS 60 capsule 025 Active cetirizine (ZyrTEC) 10 MG tabletIndicatio ns:Viral upper respiratory tract infection Take 1 tablet (10 mg) by mouth Once per day. 90 tablet 1 Active fluticasone (Flonase) 50 MCG/ACT nasal sprayIndication s:Acute maxillary sinusitis, recurrence not specified Administer 1 spray into each nostril Once per day. 16 g 3 Active Additional Information Patient not taking.Reported on 09/15/2024 albuterol 108 (90 Base) MCG/ACT inhaler Inhale 2 puffs every 4 (four) hours if needed for wheezing or shortness of breath. 18 g 025 2025 Active Spacer/Aero-Hol ding Chambers (AeroChamber Mini Chamber) device Use with albuterol MDI as needed 1 each Active magnesium gluconate 250 MG tablet Take 1 tablet by mouth Once per day. Active Posen-3 Fatty Acids (OMEGA 3 500 PO) 1 tablet by mouth every other day Active alendronate (Fosamax) 70 MG tabletIndicatio ns:Age-related osteoporosis without current pathological fracture take 1 tablet by mouth once a week with 6 to 8 oz of water 30 min before first food of day. do not lie down for 30 minutes 12 tablet Active Diclofenac Sodium 1 % gelIndications: Costochondritis APPLY 2 GM TOPICALLY TO THE AFFECTED AREA IF NEEDED FOR PAIN 100 g Active lidocaine (Lidoderm) 5 % patchIndication s:Chest wall pain Apply 1 patch topically Once per day. Remove & discard patch within 12 hours or as directed by MD. May use 2 patches at once. 60 patch 2 Active FT ClearLax 17 GM/SCOOP powder Take 17 g by mouth Once per day. Active carboxymethylce llulose (Artificial Tears) 1 % ophthalmic solutionIndicat ions:Dry eyes Administer 1 drop into both eyes 3 times daily. 15 mL 3 025 2025 Active Blood Glucose Monitoring Suppl (Truckily Chaparral Lite) w/Device kitIndications: Type 2 diabetes mellitus without complication, without long-term current use of insulin (HCC) Use to monitor blood sugar twice daily 1 kit Active celecoxib (CeleBREX) 100 MG capsuleIndicati ons:Chest wall pain Take 1 capsule (100 mg) by mouth 2 times daily. 60 capsule 025 2025 Active baclofen (Lioresal) 10 MG tabletIndicatio ns:Muscle pain Take one tablet TID PRN 60 tablet 025 Active D3 Super Strength 50 MCG (1999 UT) capsuleIndicati ons:Vitamin D deficiency TAKE 1 CAPSULE BY MOUTH EVERY MORNING 30 capsule 11 02/26/20 25 5:06 PM EST 025 Active triamcinolone (Kenalog) 0.1 % creamIndication s:Dry skin dermatitis APPLY TOPICALLY IN THE MORNING AND AT BEDTIME NEEDED FOR PAIN AND SWELLING 30 g 1 025 Active atorvastatin (Lipitor) 40 MG tabletIndicatio ns:Essential hypertension Take 1 tablet (40 mg) by mouth Once per day. 90 tablet 1 02/26/20 25 5:06 PM EST 025 Active gabapentin (Neurontin) 100 MG capsule TAKE 1 CAPSULE BY MOUTH AT BEDTIME NEEDED FOR PAIN 30 capsule Active bisacodyl (Dulcolax) 5 MG EC tablet TAKE 2 TABLETS BY MOUTH EVERY DAY AT BEDTIME FOR 2 DAYS Active polyvinyl alcohol (Liquifilm Tears) 1.4 % ophthalmic solution INSTILL 1 DROP IN EACH EYE THREE TIMES DAILY Active Reguloid 28.3 % powder MIX 1 TABLESPOONFUL IN WATER AND TAKE TWICE DAILY TO THREE TIMES DAILY IF TOLERATED 025 Active acetaminophen (Tylenol 8 Hour) 650 MG ER tablet TAKE 1 TABLET BY MOUTH EVERY 8 HOURS NEEDED FOR MILD PAIN. DO NOT BREAK, CRUSH, DISSOLVE OR CHEW Active ketoconazole (NIZOral) 2 % shampooIndicati ons:Seborrheic dermatitis Apply topically 2 (two) times a week. 120 mL 2 025 Active SUMAtriptan (Imitrex) 25 MG tabletIndicatio ns:Nonintractab le headache, unspecified chronicity pattern, unspecified headache type Take 1 tablet (25 mg) by mouth 1 (one) time if needed for migraine for up to 9 doses. May repeat dose once in 2 hours if no relief. Do not exceed 2 doses in 24 hours. 9 tablet 025 Active gabapentin (Neurontin) 100 MG capsuleIndicati ons:Paresthesia Take 1 capsule (100 mg) by mouth at bedtime. 30 capsule 2 02/25/20 25 10:45 AM EST 025 2025 Active FREESTYLE LITE test stripIndication s:Diabetes type 2, controlled (HCC) Use to test blood sugar 1 times daily 100 each 12 03/14/20 25 10:17 AM EST 025 2025 Active Lancets miscIndications :Diabetes type 2, controlled (HCC) Use to test blood sugar 1 times daily 100 each 03/14/20 25 10:17 AM EST Active Alcohol Swabs 70 % padsIndications :Diabetes type 2, controlled (HCC) Use to test blood sugar 1 times daily 100 each 03/14/20 25 10:18 AM EST Active Blood Glucose Monitoring Suppl (FreeStyle Chaparral Lite) w/Device kitIndications: Diabetes type 2, controlled ([facility]) Use to test blood sugar 1 times daily 1 kit Active Neomycin-Bacitr acin-Polymyxin (FT Triple Antibiotic) 3.5-400-5000 ointmentIndicat ions:Skin abrasion Apply 1 Application topically Once per day. 28.4 g 1 03/14/20 10:12 AM EST Active magnesium hydroxide (Milk of Magnesia) 400 MG/5ML suspensionIndic ations:Chronic idiopathic constipation Take 30 mL by mouth at bedtime for 10 days. 360 mL 1 03/14/20 10:11 AM EST 025 2025 Active ibuprofen 800 MG tabletIndicatio ns:Fall (on)(from) sidewalk curb, initial encounter Take 1 tablet (800 mg) by mouth every 6 (six) hours if needed for mild pain for up to 14 days. 56 tablet 025 2025 Active ibuprofen 800 MG tablet Take 1 tablet by mouth every 6 (six) hours if needed for mild pain. 2024 Discontinued(R eorder (will not trigger notification to Pharmacy)) Neomycin-Bacitr acin-Polymyxin (FT Triple Antibiotic) 3.5-400-5000 ointmentIndicat ions:Skin abrasion Apply 1 Application topically Once per day. 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 Patient will be sent to ED via ambulance, I called [facility] ED and the rest of signout to [...] 08/31/2024 Depression 08/31/2024 Hypercholesterolemia 08/31/2024 Headache 08/31/2024 Assessment & Plan (02/19/2025 12:23 PM EST): Orders: SUMAtriptan (Imitrex) 25 MG tablet; Take 1 tablet (25 mg) by mouth 1 (one) time if needed for migraine for up to 9 doses. May repeat dose once in 2 hours if no relief. Do not exceed 2 doses in 24 hours. Diabetes type 2, controlled 08/31/2024 Acute costochondritis [...] 06/03/2023 Dyspnea on exertion 05/23/2023 Fractured dental shinto with loss of materi al 04/02/2023 Encounter [...] pain 08/13/2022 Hip pain 08/13/2022 Moderate major depression (CMS/HCC) 08/13/2022 Assessment & Plan (12/21/2024 3:50 PM [...] 04/24/2022 Essential hypertension 04/24/2022 Assessment & Plan (03/11/2025 3:29 PM EST): - Aerobic exercise to reduce BP. Initial [...] consulting health care provider Assessment & Plan (12/21/2024 3:49 PM EDT): [...] organization. 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; Skin abrasion; Chronic idiopathic constipation; Paresthesia; SOB (shortness of breath) on exertion 03/11/2025 Travel 03/02/2025 Patient Outreach [address] [address] Diamond Ponce MD Pre-visit Planning (SDOH screening completed on 06/07/2024) 02/24/2025 9:40 AM EST Office Visit [address] [address] Ivan Sparks MD Paresthesia (Primary Dx) 02/24/2025 Travel 02/23/[address] [address] Diamond Ponce MD In person triage 02/23/2025 Travel 02/17/2025 Results Follow-Up [address] [address] Michelle Leach NP HIV-1/2 Antigen and Antibodies, Fourth Generation, with Reflexes, Syphilis Screen, Vitamin B12 (Cobalamin) and Folate Panel, Serum, Lyme Disease Ab with Reflex to Blot (IgG, IgM) 01/07/2025 Telephone [facility] [address] [place] [phone] Diamond Ponce MD 01/06/2025 11:30 AM EDT Office Visit [address] [address] Michelle Leach, DAHLIA Numbness and tingling (Primary Dx); Nonintractable headache, unspecified chronicity pattern, unspecified headache type 01/06/2025 Travel 01/05/[address] [address] Diamond Ponce MD ER Follow-up 01/03/2025 1:40 PM EDT Office Visit [facility] [address] [place] [phone] Daija Garrison MD Weakness of right upper extremity (Primary Dx) 01/03/2025 Orders Only [facility] External Provider, [facility] 01/03/[address] [address] Sofia Montero, RN Nurse Triage 01/03/2025 Travel 01/03/[address] [address] Diamond Ponce MD dec recall 12/21/2024 2:30 PM EDT Office Visit [address] [address] Diamond Ponce MD Essential hypertension (Primary Dx); Type 2 diabetes mellitus without complication, without long-term current use of insulin (CMS/HCC); Dementia with behavioral disturbance (CMS/HCC); Moderate major depression, single episode (CMS/HCC); Dietary counseling; Exercise counseling; Skin abrasion; Seborrheic dermatitis; Acute otitis media, unspecified otitis media type 12/21/2024 Travel 12/20/[address] [address] Diamond Ponce MD chart prep from Last 3 Months Immunizations Immunization Administration [...] Mass Index 30.3 03/21/2025 9:58 AM EST Plan of Treatment Upcoming Encounters Date Type Department Care Team (Late st Contact Info) Description 06/09/2025 1:45 PM EDT Office Visit [facility] MEDICINE [address] [place] [address] Diamond Ponce MD [address] [place] [address] Health Maintenance Due Date Last Done Comments CT Colonography 1955 FIT 1955 Sigmoidoscopy 1955 Colonoscopy 06/17/2023 06/16/2013 Dental Oral Exam 07/05/2023 01/02/2023, 11/28/2020 Dental Prophylaxis 07/05/2023 01/02/2023, 12/12/2020 Dental X-Ray: Full Mouth 11/30/2023 11/28/2020 Dental X-Ray: Bitewings 01/04/2024 01/03/20 23, 08/24/2021, 11/28/2020, Additional history exists DTaP/Tdap/Td Vaccines (2 - Td or Tdap) 02/08/2024 02/07/2014 HPV/Cotest 11/01/2024 12/02/2018 Pap Smear 11/01/2024 Influenza Vaccine (#1) 2024 , 01/03/2022, 02/23/2021, Additional history exists Diabetes: Hemoglobin A1C 06/20/2025 025, 03/03/2024, 12/09/2023, Additional history exists FOBT 06/28/2025 06/28/2024 Mammogram 07/19/2025 07/19/2024, 06/23, 07/09/2022, Additional history exists Diabetes: Foot Exam 12/21/2025 12/21/2024, 12/21/2024, 03/13/2023, Additional history exists Diabetes: Urine Protein Screening 01/07/2026 01/07/2025, 03/03/2024, 01/14/2023 Lipid Panel 01/07/2026 01/07/2025, 02/21, 01/14/2023, Additional history exists Tobacco Screening 02/24/2026 02/24/2025 Alcohol/Substance Use Screening 03/11/2026 03/11/2025 Depression Screening 03/11/2026 03/11/2025, 03/11/20 25 SDOH Screening 03/11/2026 03/11/2025 Eye Exam 12/07/2026 12/07/2024, 11/22, 12/07/2024, Additional [...] on patient's age to complete this topic Goals Goal Patient Goal Type Associated Problems [...] chronic kidney disease No Liudmila Parson MA Procedures Procedure Name Priority Date/Time Associated Diagnosis Comments XR CERVICAL SPINE 3V Routine 03/21/2025 10:50 AM EST LYME DISEASE AB W/REFL TO BLOT (IGG, IGM) Routine 01/07/2025 9:16 AM EDT Numbness and tingling VITAMIN B12/FOLATE, SERUM PANEL Routine 01/07/2025 9:16 AM EDT Numbness and tingling SYPHILIS SCREEN Routine 01/07/2025 9:16 AM EDT Numbness and tingling HIV 1/2 ANTIGEN/ANTIBODY, FOURTH GENERATION W/RFL Routine 01/07/2025 9:16 AM EDT Numbness and tingling COMPREHENSIVE METABOLIC PANEL Routine 01/07/2025 8:11 AM EDT Type 2 diabetes mellitus without complication, without long-term current use of insulin (HCC) ALBUMIN, RANDOM URINE W/CREATININE Routine 01/07/2025 8:11 AM EDT Type 2 diabetes mellitus without complication, without long-term current use of insulin (HCC) LIPID PANEL, STANDARD Routine 01/07/2025 8:11 AM EDT Type 2 diabetes mellitus without complication, without long-term current use of insulin (HCC) XR CHEST 1 VIEW Routine 01/04/2025 9:[address] HEAD WO CONTRAST Routine 01/03/2025 4 :28 PM EDT POCT GLYCATED HEMOGLOBIN, TOTAL Routine 12/21/2024 2:43 PM EDT Type 2 diabetes mellitus without complication, without long-term current use of insulin (CMS/HCC) POCT GLUCOSE (CPT-29338) Routine 12/21/2024 2:43 PM EDT Type 2 diabetes mellitus without complication, without long-term current use of insulin (CMS/HCC) BI MAMMOGRAM SCREENING TOMOSYNTHESIS BILATERAL Routine 07/19/2024 [...] Relevant to Health Maintenance Results * XR CERVICAL SPINE 3V (03/21/2025 10:50 AM EST) Anatomical Region Laterality Modality Abdomen Radiographic Incky ging 03/21/2025 10:5 0 AM EST Narrative 03/21/2025 11:19 AM EST [address] [address] XRay Report Signed Patient: Eveline Novoa MR#: [id number] : 1955 Acct:[id number] Age/Sex: 70 / F ADM Date: 03/21/25 Loc: HO.HHCX Attending Dr: Michelle Leach Ordering Physician: Michelle Leach Date of Service: 03/21/25 Procedure(s): XR cervical spine 3V Accession Number(s): [id number] cc: Michelle Leach; Diamond Ponce MD Reason for Exam: PAIN EXAMINATION: XR CERVICAL SPINE CLINICAL INFORMATION: PAIN COMPARISON: 07/24/2017. CT C-spine 06/21/2024. TECHNIQUE: 3 views of the cervical spine were obtained. FINDINGS: No significant scoliosis. There is a normal lordosis. No evidence of fracture, compression deformity, or suspicious bone lesion. Craniocervical junction and C1-2 articulation are intact and aligned. There is a 2 mm degenerative appearing retrolisthesis of C3 on C4. Alignment is otherwise anatomic. Mild to moderate disc degeneration present C3-4, as well as C5-6. Lesser changes at C6-7. Normal facet alignment bilaterally with mild multilevel degenerative facet and uncinate changes. No prevertebral or paravertebral soft tissue abnormality. Lung apices appear clear. XR/XR cervical spine 3V IMPRESSION: 1. No acute cervical spine abnormality. 2. Mild degenerative spondylosis of the cervical spine, most notable C3-4 and C5-6. Grossly no change from 07/24/2017. Electronically signed by: Charles Hilliard MD 03/21/2025 11:16 AM [facility] Dictated By: Charles Hilliard MD Signed By: <Electronically signed by Charles Hilliard MD in OV> 03/21/25 1116 DD/ 1050 TD/TT: 03/21/25 1055 Tankage Grinder: Procedure Note Donotuseinterpreter, Image - 03/21/2025 [place] [address] XRay Report Signed Patient: Eveline Novoa MR#: [id number] : 4Acct:[id number] Age/Sex: 70 / FADM Date: 03/21/25 Loc: HO.HHCX Attending Dr: Michelle Leach Ordering Physician: Michelle Leach Date of Service: 03/21/25 Procedure(s): XR cervical spine 3V Accession Number(s): [id number] cc: Michelle Leach; Diamond Ponce MD Reason for Exam: PAIN EXAMINATION: XR CERVICAL SPINE CLINICAL INFORMATION: PAIN COMPARISON: 07/24/2017. CT C-spine 06/21/2024. TECHNIQUE: 3 views of the cervical spine were obtained. FINDINGS: No significant scoliosis. There is a normal lordosis. No evidence of fracture, compression deformity, or suspicious bone lesion. Craniocervical junction and C1-2 articulation are intact and aligned. There is a 2 mm degenerative appearing retrolisthesis of C3 on C4. Alignment is otherwise anatomic. Mild to moderate disc degeneration present C3-4, as well as C5-6. Lesser changes at C6-7. Normal facet alignment bilaterally with mild multilevel degenerative facet and uncinate changes. No prevertebral or paravertebral soft tissue abnormality. Lung apices appear clear. XR/XR cervical spine 3V IMPRESSION: 1. No acute cervical spine abnormality. 2. Mild degenerative spondylosis of the cervical spine, most notable C3-4 and C5-6. Grossly no change from 07/24/2017. Electronically signed by: Charels Hilliard MD 03/21/2025 11:16 AM EST RP Dictated By: Charles Hilliard MD Signed By: <Electronically signed by Charles Hilliard MD in OV> 03/21/25 1116 DD/ 1050 TD/TT: 03/21/25 1055 Tankage Grinder: us Michelle Leach RETAIL SALES REPRESENTATIVE IMG XR PROCEDURES Final Result * Syphilis Screen (01/07/2025 9:16 AM EDT) Pathologist [facility] Syphilis Screen Nonreactive Nonreactive [facility] Blood 01/07/2025 9:16 AM EDT 01/07/2025 11:21 AM EDT us Michelle Leach NP LAB BLOOD ORDERABLES Final Resu lt [facility] [address] [place] [address] [phone] * Vitamin B12 (Cobalamin) and Folate Panel, Serum (01/07/2025 9:16 AM EDT) Vitamin B12 747 200 - 900 pg/mL [facility] Comment:NORMAL 200-900 PG/ML INDETERMINATE 160-199 PG/ML DEFICIENT < 160 PG/ML Folate 8.4 > or = 4.0 ng/mL [facility] Comment:Reference Values:> o r = 4.0 ng/mL< 4.0 ng/mL suggests folate deficiency Methotrexate, aminopterin and folinic acid(leucovorin) are chemotherapeutic agents whose molecularstructures are similar to folate; therefore, the Architectfolate assay cannot be used for patients using these drugs. Blood 01/07/2025 9:16 AM EDT 01/07/2025 11:21 AM EDT [facility] LAB BLOOD ORDERABLES Final Resu lt Performing Organization Address City/[facility]/ZIP Co de Phone Number [facility] [address] [place] [phone] * Lyme Disease Ab with Reflex to Blot (IgG, IgM) (01/07/2025 9:16 AM EDT) Lyme Antibody Screen <0.90 index [facility] Comment:Index Interpretation ----- < 0.90 Negative 0.90-1.09 Equivocal > 1.09 PositiveAs recommended by the Food and Drug Administration(FDA), all samples with positive or equivocalresults in a Borrelia burgdorferi antibody screenwill be tested using a blot method. Positive orequivocal screening test results should not beinterpreted as truly positive until verified as suchusing a supplemental assay (e.g., B. burgdorferi blot).The screening test and/or blot for B. burgdorferiantibodies may be falsely negative in early stagesof Lyme disease, including the period when erythemamigrans is apparent.THIS TEST WAS PERFORMED AT:[facility] [place] [phone] LOPEZ MD Lyme Blot TNP [facility] 01/07/2025 9:16 AM EDT 01/07/2025 11:21 AM EDT [facility] RETAIL SALES REPRESENTATIVE LAB BLOOD ORDERABLES Final Resu lt [facility] [address] [place] [address] [phone] * HIV-1/2 Antigen and Antibodies, Fourth Generation, with Reflexes (01/07/2025 9:16 AM EDT) HIV AB/AG Nonreactive Nonreactive [facility] Comment:HIV-1 p24 Ag and/or HIV-1/HIV-2 Ab not detected.A test result that is nonreactive does not exclude thepossibility of exposure to or infection with HIV-1 and/orHIV-2. Nonreactive results in this assay for individualswith prior exposure to HIV-1 and/or HIV-2 may be due toantigen and antibody levels that are below the limit ofdetection of this assay.The [employer] HIV Ag/Ab Combo assay result andsupplemental assay results should be interpreted inconjunction with the patient's clinical presentation,history and other laboratory results. If the results areinconsistent with clinical evidence, additional testing issuggested to confirm the result. Blood Venous blood specimen / Unknown 01/07/2025 9:16 AM EDT 01/07/2025 11:21 AM EDT Michelle Leach NP LAB BLOOD ORDERABLES Final Resu lt [facility] [address] [place] [phone] * Albumin, Random Urine W/Creatinine (01/07/2025 8:11 AM EDT) Creatinine, Urine 72.83 mg/dL [facility] Microalbumin Urine 12.0 mg/L [facility] Microalbum Creatinine Ratio Ur 16.4 <30 ug/mg cr [facility] Comment:Albumin/Creatinine R atio Reference Ranges: Normal: < 30 ug/mg creatinine Microalbuminuria: 30 - 300 ug/mg creatinineClinical Albuminuria: > 300 ug/mg creatinine Urine (Urine, Random) 01/07/2025 8:11 AM EDT 01/07/2025 11:19 AM EDT us Diamond Lepe MD LAB URINE ORDERABLES Final Result Performing Organization Address [facility]/ZIP Co de Phone Number [facility] [address] [place] [address] [phone] * (ABNORMAL) Lipid Panel, Standard (01/07/2025 8:11 AM EDT) Triglycerides 83 <150 mg/dL [facility] Comment:Desirable Triglyceri de: less than 150 mg/dLBorderline High Triglyceride 150-199 mg/dLHigh Triglyceride: 200-499 mg/dLVery High Triglyceride: greater than or equal to 5OO mg/dL Cholesterol 264(H) <200 mg/dL [facility] Comment:Desirable Cholestero l: less than 200 mg/dLBorderline High Cholesterol: 200-239 mg/dLHigh Cholesterol: greater than 239 mg/dL LDL Cholesterol Calculated 192(H) <100 mg/dL [facility] Comment:Desirable LDL: less than 100 mg/dLNear Optimal/Above Optimal LDL: 110- 129 mg/dLBorderline High LDL: 130-159 mg/dLHigh LDL: 160-189 mg/dLVery High LDL: greater than or equal to 190 mg/dL HDL Cholesterol 56 >40 mg/dL [facility] Comment:Desirable HDL: great er than 40 mg/dL Note: This HDL assay may give artificially low results in patients with liver disease. Blood Venous blood specimen / Unknown 01/07/2025 8:11 AM EDT 01/07/2025 11:21 AM EDT us Diamond Lepe MD LAB BLOOD ORDERABLES Final Result Performing Organization Address City/[facility]/ZIP Co de Phone Number [facility] [address] [place] [address] [phone] * (ABNORMAL) Comprehensive Metabolic Panel (01/07/2025 8:11 AM EDT) Sodium 144 135 - 145 mmol/L [facility] Potassium 4.4 3.3 - 5.1 mmol/L [facility] Chloride 112(H) 96 - 108 mmol/L [facility] Carbon Dioxide 26 22 - 29 mmol/L [facility] Anion Gap 10(L) 12 - 20 [facility] Urea Nitrogen (BUN) 16 9 - 16 mg/dL [facility] Creatinine, Serum 0.81 0.5 - 1.4 mg/dL [facility] Estimated Glomerular Filt Rate >60 [facility] Comment:Chronic Kidney Disea se: Estimated GFR < 60 mL/min/1.78x4Ylesug Kidney Disease: Estimated GFR < 15 mL/min/1.73m2 Glucose 92 60 - 115 mg/dL [facility] Calcium 8.6 8.4 - 10.2 mg/dL [facility] Bilirubin, Total 0.5 0.0 - 1.0 mg/dL [facility] Aspartate Amino Transferase 27 5 - 31 U/L [facility] Alanine Aminotransferase 16 0 - 31 U/L [facility] Total Protein 6.7 6.5 - 8.0 g/dL [facility] Albumin Level 4.1 3.5 - 5.0 g/dL [facility] Alkaline Phosphatase 65 39 - 117 U/L [facility] Blood Venous blood specimen / Unknown 01/07/2025 8:11 AM EDT 01/07/2025 11:21 AM EDT us Diamond Lepe MD LAB BLOOD ORDERABLES Final Result [facility] [address], [place] [phone] * XR Chest 1 View (01/04/2025 9:47 AM EDT) Anatomical Region Laterality Modality Chest Radiographic Nicky ging 01/04/2025 9:47 AM EDT Narrative 01/04/2025 9:48 AM EDT [address] [address] XRay Report Signed Patient: Eveline Novoa MR#: [id number] : 1955 Acct:[id number] Age/Sex: 69 / F ADM Date: 01/03/25 Loc: HO.ED Attending Dr: Ordering Physician: Mimi Carrillo Date of Service: 01/03/25 Procedure(s): XR chest 1V Accession Number(s): [id number] cc: Diamond Ponce MD; Mimi Carrillo Reason [...] in OV> 01/04/25947 DD/ 6 TD/TT: 01/04/25946 Tankage Grinder: Procedure Note Donotuseinterpreter, Image - 01/04/2025 [address] [address] [address] XRay Report Signed Patient: Eveline Novoa MR#: [id number] : 1955cct:[id number] Age/Sex: 69 / FADM Date: 01/03/25 Loc: HO.ED Attending Dr: Ordering Physician: Mimi Carrillo Date of Service: 01/03/25 Procedure(s): XR chest 1V Accession Number(s): [id number] cc: Diamond Ponce MD; Mimi Carrillo Reason [...] in OV> 01/04/2548 DD/ 6 TD/TT: 01/04/25946 Tankage Grinder: [facility] External Provider IMG XR PROCEDURES Final Result * CT Head w/o Contrast (01/03/2025 4:28 PM EDT) Anatomical Region Laterality Modality Head, Neck Computed Tomogra phy 01/03/2025 4:28 PM EDT Narrative 01/03/2025 4:30 PM EDT [address] [address] [address] Scan Report Signed Patient: Eveline Novoa MR#: [id number] : 1955 Acct:[id number] Age/Sex: 69 / F ADM Date: 01/03/25 Loc: HO.ED Attending Dr: Ordering Physician: Deo Hernandez MD Date of Service: 01/03/25 Procedure(s): CT head/brain wo IV con Accession Number(s): [id number] cc: Diamond Ponce MD; Deo Hernandez MD Report Number: [id number]: Total DLP = 563.00 mGy-cm Reason for Exam: right arm numbness CLINICAL HISTORY: right arm numbness CT head without contrast Comparison: CT/CO/SR - CT HEAD/BRAIN WO IV CON - [...] Street MD in OV> 01/03/25 1630 DD/ 27 TD/TT: 01/03/258 Tankage Grinder: Procedure Note Donotuseinterpreter, Image - 01/03/[address] [place] [address] [address] Scan Report Signed Patient: Eveline Novoa MR#: [id number] : 1955cct:[id number] Age/Sex: 69 / FADM Date: 01/03/25 Loc: .ED Attending Dr: Ordering Physician: Deo Hernandez MD Date of Service: 01/03/25 Procedure(s): CT head/brain wo IV con Accession Number(s): [id number] cc: Diamnod Ponce MD; Deo Hernandez MD Report Number: [id number]: Total DLP = 563.00 mGy-cm Reason for Exam: right arm numbness CLINICAL HISTORY: right arm numbness CT head without contrast Comparison: CT/CO/SR - CT HEAD/BRAIN WO IV CON - [...] 01/03/25 1630 DD/ 1628 TD/TT: 01/03/25 1628 Tankage Grinder: [facility] External Provider IMG CT PROCEDURES Edited [...] Media Lot # [id number] Lot# Expiration Date ,726 Blood Capillary blood specimen / Unknown 12/21/2024 2:43 PM EDT Diamond Lepe MD POINT OF CARE TEST EN TER/EDIT ORDERABLES Final Result * BI Mammogram Screening Tomosynthesis Bilateral (07/19/2024 1:30 PM EDT) Anatomical Region Laterality Modality Breast Bilateral Mammography 07/19/2024 1:30 PM EDT Narrative 07/25/2024 2:35 PM EDT [facility] [address] [place] [address] Mammography Report Signed Patient: Eveline Novoa MR#: [id number] : 1955 Acct:[id number] Age/Sex: 69 / F ADM Date: 07/19/24 Loc: MAMMO Attending Dr: Diamond Lepe MD Ordering Physician: Diamond Ponce MD Results: 2Benign Findings Date of Service: 07/19/24 Follow Up: 1 Year From Orig inal Mammogram Procedure(s): MM tomosynthesis screening BI Accession Number(s): [id number] cc: Diamond Ponce MD EXAMINATION: MM SCREENING [...] 07/25/24 1432 DD/ 1330 TD/TT: 07/19/24 1355 Tankage Grinder: Procedure Note Donotuseinterpreter, Image - 07/25/2024 [facility] [address] [place] [address] Dr. [place], [place] [address] Mammography Report Signed Patient: Eveline Novoa MR#: [id number] : 1955cct:[id number] Age/Sex: 69 / FADM Date: 07/19/24 Loc: HO.MAMMO Attending Dr: Diamond Lepe MD Ordering Physician: Diamond Ponce MDResults: 2Benign Findings Date of Service: 07/19/24Follow Up: 1 Year From Orig inal Mammogram Procedure(s): MM tomosynthesis screening BI Accession Number(s): [id number] cc: Diamond Ponce MD EXAMINATION: MM SCREENING [...] 07/25/24 1432 DD/ 1330 TD/TT: 07/19/24 1355 Tankage Grinder: us Diamond Lepe MD IMG BI PROCEDURES [place] ta Result - Final * Cologuard?? colon cancer screening (06/28/2024 10:00 PM EDT) Cologuard Result Negative Negative 07/07/19 12:46 PM EDT [facility] (CLIA #:[id number]) Comment: NEGATIVE TEST RESULT. A negative Cologuard [...] (Amanda Sharif al, N Engl J Med 2014;370(14):8865-7014) The normal value (reference range) for this assay is negative. COLOGUARD RE-SCREENING RECOMMENDATION: Periodic colorectal cancer screening is an important part of preventive healthcare for asymptomatic individuals at average risk for colorectal cancer. Following a negative Cologuard result, the [place] [employer] and U.S. Multi-Society Task Force screening guidelines recommend a Cologuard re-screening interval of 3 years. References: [place] [employer] Guideline for Colorectal Cancer Screening: https://www.cancer.org/cancer/hlwsl-wgjizu-aeaknr/idujwhhvz-bfbecjupr-apazhel/ac s-rec ommendations.html.; Robert DK, Tainsha CR, Ji ValenciaK, Colorectal Cancer Screening: Recommendations for Physicians and Patients from the U.S. Multi-Society Task Force on Colorectal Cancer Screening , Am J Gastroenterology 2017; 112:1652-3478. TEST DESCRIPTION: Composite algorithmic analysis of stool [...] (Amanda Sharif al, N Engl J Med 2014;370(14):0313-3138.) Cologuard may produce a false negative or false positive result (no colorectal cancer or precancerous polyp present at colonoscopy follow up). A negative Cologuard test result does not guarantee the absence of CRC or advanced adenoma (pre-cancer). The current Cologuard screening interval is every 3 years. ([place] [employer] and U.S. Multi-Society Task Force). Cologuard performance data in a 10,000 patient pivotal study using colonoscopy as the reference method can be accessed at the following location: www.Teads.Karmasphere/results. Additional description of the Cologuard test process, warnings and precautions can be found at www.[employer]Bala[employer]rd.Karmasphere. Stool specimen (specimen) 06/28/2024 10:00 PM EDT 06/30/2024 1:20 PM EDT us Diamond Lepe MD LAB MOLECULAR DIAGNOS TICS ORDERABLES Final Result Performing Organization Address City/[facility] Co de Phone Number [facility] (CLIA #:[id number]) [place] [address], * Hepatitis C Antibody with Reflex to HCV, RNA, Quantitative, Real-Time PCR (03/03/2024 7:57 AM EST) Hepatitis C Antibody Nonreactive Nonreactive [facility] Comment:Antibodies to HCV no t detected; does not exclude early acuteHCV infection. Blood Venous blood specimen / Unknown 03/03/2024 7:57 AM EST 03/03/2024 11:18 AM EST Diamond Lepe MD LAB BLOOD ORDERABLES Final Result [facility] [address] [place] [address] [phone] * (ABNORMAL) HPV mRNA E6/E7 (12/02/2018 3:30 PM EDT) HPV mRNA E6/E7 DETECTED (AA) NOT DETECTED [facility] Comment: This test was performed using the APTIMA(R) HPV Assay ([employer] This assay detects E6/E7 viral messenger RNA (mRNA) from 14 high-risk HPV types (16,18,31,33,35,39,45,51, 52,56,58,59,66,68). For additional information please refer to: http://education.We Are Hunted/faq/FCO757a2 (This link is being provided for informational/ educational purposes only.) The analytical performance characteristics of this assay have been determined by [employer] [place], [place]. The modifications have not been cleared or approved by the FDA. This assay has been validated pursuant to the CLIA regulations and is used for clinical purposes. Test Performed by [facility], [facility], [address] [place] [address] Justyn Nettles M.D., Ph.D., Director of Laboratories , CLIA [id number] Please note: Effective 12/04/2015, HPV testing will be performed using [employer]'s APTIMA test which targets mRNA. Detecting mRNA instead of DNA, as in older methods, offers significant improvements in specificity. 12/02/2018 3:3 0 PM EDT us Leonarda Mancera CNM HISTORICAL/NON ORDERABLE LABS Final Result [facility] [address] [place] [address], * Hm Colonoscopy (06/16/2013) Historical Provider MD HEALTH MAINTENANCE Final Result from Last 3 Months or Most Recently Relevant to Health Maintenance Additional Health Concerns Active Problems Noted Date [...] 03/14/2025 Patient has chronic kidney disease 03/21/2025 [facility]O D-SNP[facility] [address] [place] [id number] [place] [address] [place] [id number] Care Teams Players Club Representative Relationship Specialty Start Date End Date Diamond Ponce MD [address] [place] [address] PCP - General Family Medicine 07/01/19
--- OUTSIDE RECORDS SUMMARY | 2025-03-21 12:02 | XMS_ITS | Encounter Summary ---
Author Organization [employer] Address [address] [facility] [address] [place] [address] Care Team Providers Care Geriatric Aide Name Role Phone Diamond Ponce MD Primary Care Provide r Encounter Details Date Type Department Care Team ([facility] st Contact Info) Description 06/29/2024 Orders Only [facility] [address] [place], [place] [phone] Carla Mckeon Social History Tobacco Use Types [...] Description 06/09/2025 1:45 PM EDT Office Visit [facility] [address] [place] [address] Diamond Ponce MD [address] [place] [address] documented as of this encounter Procedures Procedure Name Priority Date/Time Associated Diagnosis Comments BIOPSY VAGINAL Routine 05/04/2024 12:00 AM EST documented in this encounter Results * (ABNORMAL) Biopsy vaginal (05/04/2024 12:00 AM EST) us Historical Provider IN CLINIC/BEDSIDE ORDERAB LES Final Result documented in this encounter Visit Diagnoses Not on filedocumented in this encounter Additional Health Concerns Assessment Noted Time PHQ-9 Depression Total Score: 0 05/23/19 24 1:38 PM EST documented as of this encounter Care Teams Geriatric Aide Relationship Specialty Start Date End Date Diamond Ponce MD [address] [place] [address] PCP - General Family Medicine 07/01/19 documented as of this encounter
--- OUTSIDE RECORDS SUMMARY | 2025-03-21 12:02 | XMS_ITS | Encounter Summary ---
Author Organization [employer] Address [address] [facility] [address] 7[address] [place] [address] Care Team Providers Care Machine Bookkeeper Name Role Phone Diamond Ponce MD Primary Care Provide r Encounter Details Date Type Department Care Team ([facility] st Contact Info) Description 02/17/2025 Results Follow-Up [facility] [address] [place] [address] Michelle Leach NP [address] [place] [address] HIV-1/2 Antigen and Antibodies, Fourth Generation, with Reflexes, Syphilis Screen, Vitamin B12 (Cobalamin) and Folate Panel, Serum, Lyme Disease Ab with Reflex to Blot (IgG, IgM) Social History Tobacco Use Types Packs/Day Years [...] Answer Date Recorded Patient Health Questionnaire-9 Score 12 01/11/2025 Patient Health Questionnaire-9 Score 12 01/11/2025 Last PHQ-9: Questionnaire Data Not on file 1 Housing Stability Answer Date Recorded What is [...] Answer Date Recorded Patient Health Questionnaire-2 Score 1 01/11/2025 Internet Access Answer Date Recorded Internet Access [...] Description 06/09/2025 1:45 PM EDT Office Visit [facility] [address] [place] [address] Diamond Ponce MD [address] [place] [address] documented as of this encounter Goals Goal Patient Goal Type Associated Problems Recent Progress Patient-Stated? Author Help patients manage their type 2 diabetes Care Plan Help patients manage their type 2 diabetes No Michelle Leach NP Patient has chronic kidney disease Care Plan Patient has chronic kidney disease No Michelle Leach NP documented as of this encounter Visit Diagnoses Not on filedocumented in this encounter Additional Health Concerns Active Problems Noted Date Diagnosed Date Help patients manage their type 2 diabetes 02/17 Patient has chronic kidney disease 02/17/2025 Assessment Noted Time PHQ-9 Depression Total Score: 12 025 3:00 PM EDT documented as of this encounter Care Teams Machine Bookkeeper Relationship Specialty Start Date End Date Diamond Ponce MD [address] [place] [address] PCP - General Family Medicine 07/01/19 documented as of this encounter
--- OUTSIDE RECORDS SUMMARY | 2025-03-21 12:02 | XMS_ITS | Encounter Summary ---
Author Organization [employer] Address [address] [place] [address] 7t [place] [address] Care Team Providers Care Insulator Cutter And Former Name Role Phone Diamond Ponce MD Primary Care Provide r Encounter Details Date Type Department Care Team (Late Contact Info) Description 03/29/2022 [facility] Information Management [address] [place] [address] Diamond Ponce MD [address] [place], [place] [phone] Social History Tobacco Use Types Packs/Day Years [...] Department Care Team (Late Contact Info) Description 06/09/2025 1:45 PM EDT Office Visit [facility] [address] [place], [place] [phone] Diamond Ponce MD [address] [place], [place] [phone] documented as of this encounter Visit Diagnoses Not on filedocumented in this encounter Care Teams Insulator Cutter And Former Relationship Specialty Start Date End Date Diamond Ponce MD [address] [place] [phone] PCP - General Family Medicine 07/01/19 documented as of this encounter
--- OUTSIDE RECORDS SUMMARY | 2025-03-21 12:02 | XMS_ITS | Encounter Summary ---
Author Organization [employer] Address [address] [facility] [address] [place] [address] Care Team Providers Care Paperhanger Contractor Name Role Phone Diamond Ponce MD Primary Care Provide r Encounter Details Date Type Department Care Team ([facility] st Contact Info) Description 03/21/2025 Orders Only [facility] [address] [place] [address] Michelle Leach NP [address] [place] [address] Social History Tobacco Use Types Packs/Day Years [...] Description 06/09/2025 1:45 PM EDT Office Visit [facility] [address] [place] [address] Diamond Ponce MD [address] [place] [address] documented as of this encounter Goals Goal [...] [place] documented as of this encounter Procedures Procedure Name Priority Date/Time Associated Diagnosis Comments XR CERVICAL SPINE 3V Routine 03/21/2025 10:50 AM EST documented in this encounter Results * XR CERVICAL SPINE 3V (03/21/2025 10:50 AM EST) Anatomical Region Laterality Modality Abdomen Radiographic Nicky ging 03/21/2025 10:5 0 AM EST Narrative 03/21/2025 11:19 AM EST [facility] [address] [place] [address] XRay Report Signed Patient: Eveline Novoa MR#: [id number] : 1955 Acct:[id number] Age/Sex: 70 / F ADM Date: 03/21/25 Loc: HO.HHCX Attending Dr: Michelle Leach Ordering Physician: Michelle Leach Date of Service: 03/21/25 Procedure(s): XR cervical spine 3V Accession Number(s): [id number] cc: Michelle Leach; Diamond Ponce MD Reason [...] by: Charles Hilliard MD 03/21/2025 11:16 AM EST RP Dictated By: Charles Hilliard MD Signed By: <Electronically signed by Charles Hilliard MD in OV> 03/21/25 1116 DD/ 1050 TD/TT: 03/21/25 1055 Chemical Plant Operator: Procedure Note Donotuseinterpreter, Image - 03/21/2025 [place] [address] XRay Report Signed Patient: Eveline Novoa MR#: [id number] : 4Acct:[id number] Age/Sex: 70 / FADM Date: 03/21/25 [facility]: Michelle Leach Ordering Physician: Michelle Leach Date of Service: 03/21/25 Procedure(s): XR cervical spine 3V Accession Number(s): [id number] cc: Michelle Leach; Diamond Ponce MD Reason [...] by: Charles Hilliard MD 03/21/2025 11:16 AM EST RP Dictated By: Charles Hilliard MD Signed By: <Electronically signed by Charles Hilliard MD in OV> 03/21/25 1116 DD/ 1050 TD/TT: 03/21/25 1055 Chemical Plant Operator: us Michellesam Milesm CUPOLA MELTING SUPERVISOR IMG XR PROCEDURES Final Result documented in this encounter Visit [...] documented as of this encounter Care Teams Paperhanger Contractor Relationship Specialty Start Date End Date Diamond Ponce MD [address] [place] [address] PCP - General Family Medicine 07/01/19 documented as of this encounter
--- OUTSIDE RECORDS SUMMARY | 2025-03-21 12:02 | XMS_ITS | Patient Health Record ---
Author Organization [employer] Address [address] [place] [address] Care Team Providers Care Tariff Compiling Clerk Name Role Phone Jacey VILLAGOMEZ, Tesha Primary Care Provider U Marc Bob Unavailable [phone] Reason For Referral No Information Medications Medication SIG (Take, Route, Frequency, Duration) Notes Start Date End Date Status Colyte with Flavor Packs 240 GM Solution Reconstituted as directed Orally as directed; Duration: 1 dose 04/13/2013 Active Bentyl 10 MG Capsule 1-2 capsules Orally QID prn abdominal pain/gas/cramps; Duration: 30 day(s) 04/13/2013 Active Social History Social History Additional Details Category Social Info Options Details Miscellaneous: Marital status: Occupation: unemployed Section Notes: Nonsmoker; no alcohol From [place] in 2010 Problems Problem Type SNOMED Code ICD Code Onset Dates Problem Status W/U Status Risk Notes Problem Irritable bowel syndrome (59246221) Irritable bowel syndrome (564.1) Active confirmed Problem Generalized abdominal pain (773750855) Abdominal pain, generalized (789.07) Active confirmed Problem Screening for colon cancer (060105535) Screening for colon cancer (V76.51) Active confirmed Plan Of Treatment Future Test Test Name Order Date COLONOSCOPY 04/13/2013 Insurance Providers Payer Name Payer Address Payer Phone Subscriber Number Group Number Insured Name Patient Relationship to Insured Coverage Start Date Coverage End Date [facility] [employer] [facility] [address] [address] [place], [place] [phone] [id number] SUNDAY COLON Self - patient is the insured Medical (General) History Medical History History ICD Code Denies AL,DM,CVA,Lung disease,renal dise ase Surgical History Surgery Date(Month/Year) hysterectomy varicose vein on left leg
--- OUTSIDE RECORDS SUMMARY | 2025-03-21 12:02 | XMS_ITS | Encounter Summary ---
Author Organization [employer] Address [address] [facility] 7t [place] [address] Care Team Providers Care Cement Finisher Name Role Phone Diamond Ponce MD Primary Care Provide r Reason for Visit * Reason Onset Date Comments Prior Authorization 03/04/2023 Encounter Details Date Type Department Care Team ([facility] [address] Contact Info) Description 03/04/2023 Telephone [facility] [address] [place] [address] Aron No DDS [address] [place] [address] Prior Authorization Social History Tobacco Use Types [...] EDT Office Visit [facility] [address] [place], [place] [phone] Diamond Ponce MD [address] [place] [address] documented as of this encounter Visit Diagnoses Not on filedocumented in this encounter Additional Health Concerns Assessment Noted Time PHQ-9 Depression Total Score: 0 04/24/19 23 2:26 PM EST documented as of this encounter Care Teams Cement Finisher Relationship Specialty Start Date End Date Diamond Ponce MD [address] [place], [place] [phone] PCP - General Family Medicine 07/01/19 documented as of this encounter
--- OUTSIDE RECORDS SUMMARY | 2025-03-21 12:02 | XMS_ITS | Clinical Summary ---
Author Organization [facility] Address [address] [place] [address] Phone Care Team Providers Care Housekeeping Laundry Worker Name Role Phone Diamond Page MD Primary Care Provider Allergies No known [...] file Insurance MEDIC[facility] PART A & [facility] [place] HEALTH MEDICARE PART A & [place] & B [facility] PART [facility] & [facility] & [place] Care Teams Housekeeping Laundry Worker Relationship Specialty Start Date End Date Diamond Page MD [address] [place] [address] PCP - General Internal Medicine 11/05/21 Additional Source Comments The information contained in this document represents components of the legal health record. It is not the complete legal health record.[facility]
--- OUTSIDE RECORDS SUMMARY | 2025-03-21 12:02 | XMS_ITS | Encounter Summary ---
Author Organization [employer] [facility] Address [address] [place] [address] 7t [place] [address] Care Team Providers Care Prepress Manager Name Role Phone Diamond Ponce MD Primary Care Provide r Encounter Details Date Type Department Care Team (Late Contact Info) Description 12/11/2022 Orders Only [facility] MED[facility]INE [address] [place] [address] [phone] Provider, MD Ya Social History Tobacco Use [...] 1:45 PM EDT Office Visit [facility] [address] [place] [address] Diamond Ponce MD [address] [place] [phone] documented as of this encounter Procedures Procedure [...] documented as of this encounter Care Teams Prepress Manager Relationship Specialty Start Date End Date Diamond Ponce MD [address] [place] [address] PCP - General Family Medicine 07/01/19 documented as of this encounter
--- OUTSIDE RECORDS SUMMARY | 2025-03-21 12:02 | XMS_ITS | Encounter Summary ---
Author Organization [employer] Address [address] [facility] [address] 7[address] [place] [address] Care Team Providers Care Multi Township Assessor Name Role Phone Diamond Ponce MD Primary Care Provide r Encounter Details Date Type Department Care Team (Latest Contact Info) Description 03/21/2025 Travel Social History Tobacco Use Types Packs/Day [...] Description 06/09/2025 1:45 PM EDT Office Visit [facility] MEDICINE [address] [place] [address] Diamond Ponce MD [address] [place] [address] documented as of this encounter Goals Goal [...] documented as of this encounter Care Teams Multi Township Assessor Relationship Specialty Start Date End Date Diamond Ponce MD [address] [place] [address] PCP - General Family Medicine 07/01/19 documented as of this encounter
== END 2025-03-21 10:34 ==
LOC: HO.HHCX 10:33
PROVIDERS: PCP Internal Medicine; Visit Provider Nurse Practitioner
DX: T14.90XA Injury, unspecified, initial encounter (principal); W10.1XXA Fall (on)(from) sidewalk curb, initial encounter
CPT/HCPCS: 72040

== ENCOUNTER → 2025-03-21 10:50 | Outpatient (BNV) | payer OTHER, SELFPAY | PROVIDERS: PCP Internal Medicine; Visit Provider Radiology Diagnostic Radiology | DX: M47.812 Spondylosis without myelopathy or radiculopathy, cervical region (principal) | CPT/HCPCS: 72040 ==